=== PATIENT | female | born 1980 | race Caucasian/White ===

== ENCOUNTER → 2017-03-01 | Outpatient (CLI) | payer MEDICARE, OTHER ==
--- NOTE | 2017-03-01 10:08 | CT ---
EXAMINATION TYPE: CT brain wo con DATE OF EXAM: 03/01/2017 COMPARISON: 01/22/2014 INDICATION: Headache DLP: 1052 mGycm, Automated exposure control for dose reduction was used. CONTRAST: None CT of the brain is performed utilizing 3 mm thick sections through the posterior fossa and 3 mm thick sections through the remaining calvarium. Study is performed within 24 hours of arrival to the hosp [facility]. No abnormal hyperdensity is present to suggest an acute intracranial hemorrhage. No mass lesion is evident. No acute infarcts are evident. Ventricles and sulci are diminished for the patient age. Shunt catheter is present on the right with the tip in the region of the anterior right lateral ventricle. This is a change from 2013. Occipital craniotomy is been performed. 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 This is new from 01/22/2014. Paranasal sinuses and mastoid air cells within the [id number]-he-botc are clear. IMPRESSIONS: 1. 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 2. Shunt catheter is placed over the interval. No hydrocephalus is evident. Ventricles appear decompr essed.
== END | disposition home or self-care (01) ==
LOC: RADCTMAIN 08:56
PROVIDERS: ATTEND Neurological Surgery
DX: Q07.9 Congenital malformation of nervous system, unspecified (principal); R90.89 Other abnormal findings on diagnostic imaging of central nervous system; Z98.890 Other specified postprocedural states; Z98.2 Presence of cerebrospinal fluid drainage device
CPT/HCPCS: 70450

== ENCOUNTER → 2017-03-01 | Outpatient (CLI) | payer MEDICARE, OTHER ==
--- NOTE | 2017-03-01 10:52 | MR ---
EXAMINATION TYPE: MR knee RT wo con DATE OF EXAM: 03/01/2017 COMPARISON: NONE HISTORY: Medial right knee pain without known injury and pain over the patella. TECHNIQUE: Multiplanar, multisequence imaging of the right knee is performed without IV contrast. FINDINGS: MEDIAL MENISCUS: Anterior and posterior horns are intact without tear. LATERAL MENISCUS: Anterior and posterior horns are intact without tear. CRUCIATE LIGAMENTS: The anterior and posterior cruciate ligaments are intact and unremarkable. COLLATERAL LIGAMENTS: The medial collateral ligament and lateral collateral ligament complex are inta ct and unremarkable. A trace amount of fluid is seen deep to the posterior fibers of the medial colla teral ligament, relating to mild medial collateral ligament bursitis. EXTENSOR MECHANISM: Visualized quadriceps and patellar tendons are intact. EFFUSION: A small suprapatellar effusion is present with a small amount of synovial proliferation feliciano periorly relating to mild synovitis. TRICOMPARTMENT SPACES: Joint spaces are preserved. CARTILAGE: Slight signal heterogeneity of the patellar cartilage, medial greater than lateral is appr eciated. BONE MARROW SIGNAL: No focal abnormal marrow signal is appreciated. OTHER: Small cystic multiloculated lesion is seen posterior to the distal femoral diaphysis most com monly relating to a small ganglion cyst. Trace fluid between the medial head of the gastric anemias a nd semimembranosus relates to a minute Morales's cyst. Mild nonspecific prepatellar soft tissue swellin g predominantly overlies the patellar tendon. IMPRESSION: 1. No evidence of meniscal tear, muscular or ligamentous tear. 2. Small suprapatellar joint effusion with mild synovitis. 3. Mild nonspecific prepatellar soft tissue swelling with no focal bone marrow contusion or fracture. 4. Trace amount of fluid seen deep to the medial collateral ligament indicative of mild bursitis. 5. Mild patellar chondromalacia.
== END | disposition home or self-care (01) ==
LOC: RADMRIMAIN 07:51
PROVIDERS: ATTEND Orthopaedic Surgery
DX: M25.461 Effusion, right knee (principal); M94.261 Chondromalacia, right knee; M65.88 Other synovitis and tenosynovitis, other site

== ENCOUNTER → 2017-07-08 | Outpatient (CLI) | payer MEDICARE, OTHER ==
--- NOTE | 2017-07-08 14:46 | US ---
EXAMINATION TYPE: US kidneys/renal and bladder DATE OF EXAM: 07/08/2017 COMPARISON: CT abdomen February 15, 2015 CLINICAL HISTORY: Dysuria R30.0, Chronic cystitis N30.20. EXAM MEASUREMENTS: Right Kidney: 11.0 x 4.3 x 4.3 cm Left Kidney: 10.8 x 5.0 x 4.4 cm Right Kidney: No hydronephrosis or masses seen Left Kidney: No hydronephrosis or masses seen Bladder: wnl There is no evidence for hydronephrosis at this point in time. No nephrolithiasis is seen. No merle s are identified. The urinary bladder is anechoic. Bilateral ureteral jets are not seen. Post void scanning not performed. Evaluation for distal ureter jets not performed or not saved to PAC S. IMPRESSION: Suboptimal study, no hydronephrosis is noted bilaterally.
== END | disposition home or self-care (01) ==
LOC: RADUSWWP 14:10
PROVIDERS: ATTEND Urology
DX: R30.0 Dysuria (principal); N30.20 Other chronic cystitis without hematuria
CPT/HCPCS: 76770

== ENCOUNTER 2018-07-24 23:10 | Emergency (ER) | payer MEDICARE, OTHER ==
[2018-07-24] MEDS ORDERED: SODIUM CHLORIDE 0.9% 500 ML 500 ML IV STA (23:20)
[2018-07-24] MEDS ORDERED: SODIUM CHLORIDE 0.9% 1,000 ML IV STA (23:20)
[2018-07-24] MEDS ORDERED: HYDROmorphone 1 MG/ML 1 ML SYRINGE IVP STA (23:36)
[2018-07-24] MEDS ORDERED: ONDANSETRON 4 MG/2 ML VIAL IVP STA (23:36)
[2018-07-24 23:51] LABS: Basophils # (A) 0.1 k/uL (0-0.2); Basophils % (A) 1 %; Eosinophils # (A) 0.2 k/uL (0-0.7); Eosinophils % (A) 3 %; HCT 40.3 % (34.0-46.0); Lymphocytes # (A) 2.3 k/uL (1.0-4.8); Lymphocytes % (A) 40 %; MCH 29.3 pg (25.0-35.0); MCHC 34.7 g/dL (31.0-37.0); MCV 84.4 fL (80.0-100.0); Monocytes # (A) 0.4 k/uL (0-1.0); Monocytes % (A) 6 %; Neutrophils # (A) 2.7 k/uL (1.3-7.7); Neutrophils % (A) 47 %; Platelet Count 281 k/uL (150-450); RBC 4.77 m/uL (3.80-5.40); RDW 12.7 % (11.5-15.5); WBC 5.7 k/uL (3.8-10.6)
--- NOTE | 2018-07-24 23:53 | ED ---
General Adult HPI - General Source: patient, RN notes reviewed Mode of arrival: ambulatory Limitations: no limitations <Cristiano Kathleen - Last Filed: 07/25/18 01:11> <Kaylene Hopson - Last Filed: 07/25/18 03:04> - General Chief complaint: Back Pain/Injury Stated complaint: Kidney Infection Time Seen by Provider: 07/24/18 23:19 - History of Present Illness Initial comments: 38-year-old female presents emergency Department chief complaint of right flank pain. Patient states that she was diagnosed by PCP for of a kidney infection. Patient has had chronic history of urinary tract infections, interstitial cystitis does see urology. Patient does take chronic pain meds including Percocet and morphine. 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 Patient states that she's had no reported fever or chills though she takes Tylenol 5 times a day. Denies belly to diarrhea, constipation. She has noted dysuria and urinary frequency. Patient is unsure if urine culture was obtained (Cristiano Kathleen) - Related Data Home Medications Medication Instructions Recorded Confirmed ALPRAZolam [Xanax] 1 mg PO TID PRN 01/22/14 03/15/16 Dextroamphetamine/Amphetamine 30 mg PO BID 01/22/14 03/15/16 [Adderall] Albuterol Inhaler [Ventolin 2 puff INHALATION Q4-6H PRN 04/24/14 03/15/16 Inhaler] Fluticasone Propionate [Flonase 1 spray EA NOSTRIL DAILY 10/24/14 03/15/16 Allergy Relief] Hyoscyamine Sulfate [Levsin-Sl] 0.125 mg SL AC-TID 10/24/14 03/15/16 Cetirizine HCl [Zyrtec] 10 mg PO DAILY PRN 11/18/15 03/15/16 Diphenoxylate HCl/Atropine 1 tab PO QID PRN 11/18/15 03/15/16 [Lomotil] Morphine Sulfate Ir [MSIR] 30 mg PO TID 03/15/16 03/15/16 Morphine Sulfate [Morphine Sulfate 30 mg PO BID PRN 03/15/16 03/15/16 ER] Previous Rx's Medication Instructions Recorded Fluconazole [Diflucan] 150 mg PO ONCE #2 tab 03/15/16 Nitrofurantoin Monohyd/M-Cryst 100 mg PO Q12HR #14 cap 03/15/16 [Macrobid] Ciprofloxacin HCl [Cipro] 500 mg PO Q12HR #20 tablet 07/25/18 Allergies Allergy/AdvReac Type Severity Reaction Status Date / Time ibuprofen [From Motrin] Allergy Unknown Verified 07/24/18 23:17 metoclopramide HCl Allergy Rapid Verified 07/24/18 23:17 [From Reglan] Heart Rate Review of Systems ROS Other: All systems not noted in ROS Statement are negative. <Cristiano Kathleen - Last Filed: 07/25/18 01:11> ROS Other: All systems not noted in ROS Statement are negative. <Kaylene Hopson - Last Filed: 07/25/18 03:04> ROS Statement: Those systems with pertinent positive or pertinent negative responses have been documented in the HPI. Past Medical History Past Medical History: Asthma Additional Past Medical History / Comment(s): chiari malformation, migraines, uti, History of Any Multi-Drug Resistant Organisms: None Reported Past Surgical History: Tonsillectomy, Tubal Ligation Additional Past Surgical History / Comment(s): chiari decompression, shunt to brain Past Psychological History: ADD/ADHD Smoking Status: Never smoker Past Alcohol Use History: None Reported Past Drug Use History: None Reported <Cristiano Kathleen - Last Filed: 07/25/18 01:11> General Exam Limitations: no limitations General appearance: alert, in no apparent distress Head exam: Present: atraumatic, normocephalic, normal inspection Respiratory exam: Present: normal lung sounds bilaterally. Absent: respiratory distress, wheezes, rales, rhonchi, stridor Cardiovascular Exam: Present: regular rate, normal rhythm, normal heart sounds. Absent: systolic murmur, diastolic murmur, rubs, gallop, clicks GI/Abdominal exam: Present: soft, tenderness (Mild suprapubic), normal bowel sounds. Absent: distended, guarding, rebound, rigid Back exam: Present: CVA tenderness (R). Absent: CVA tenderness (L) Skin exam: Present: warm, dry, intact, normal color. Absent: rash <Cristiano Kathleen - Last Filed: 07/25/18 01:11> Vital Signs 07/24/18 07/25/18 23:14 02:04 Temperature 97.7 F 98.1 F Pulse Rate 98 68 Respiratory 18 16 Rate Blood Pressure 103/76 95/68 O2 Sat by Pulse 99 97 Oximetry Medical Decision Making - Lab Data Result diagrams: 07/24/18 23:33 07/24/18 23:33 <Cristiano Kathleen - Last Filed: 07/25/18 01:11> - Lab Data Result diagrams: 07/24/18 23:33 07/24/18 23:33 <Kaylene Hopson - Last Filed: 07/25/18 03:04> - Medical Decision Making 38-year-old female presented from for right flank pain. Patient does have evidence of urinary tract infection no fever or leukocytosis. Patient most likely has early pyelonephritis was given 2 g Rocephin emergency department we discharged on ciprofloxacin, urine culture obtained patient agrees to plan. ( Cristiano Kathleen) I was available for consultation in the emergency department. The history and physical exam were done by the midlevel provider. I was consulted for this patient's care. I reviewed the case with the midlevel provider and based on their presentation of the patient, I agree with the assessment, medical decision making and plan of care as documented. (Kaylene Hopson) - Lab Data Lab Results 07/24/18 07/24/18 07/24/18 Range/Units 23:33 23:33 23:33 WBC 5.7 (3.8-10.6) k/uL RBC 4.77 (3.80-5.40) m/uL Hgb 14.0 (11.4-16.0) gm/dL Hct 40.3 (34.0-46.0) % MCV 84.4 (80.0-100.0) fL MCH 29.3 (25.0-35.0) pg MCHC 34.7 (31.0-37.0) g/dL RDW 12.7 (11.5-15.5) % Plt Count 281 (150-450) k/uL Neutrophils % 47 % Lymphocytes % 40 % Monocytes % 6 % Eosinophils % 3 % Basophils % 1 % Neutrophils # 2.7 (1.3-7.7) k/uL Lymphocytes # 2.3 (1.0-4.8) k/uL Monocytes # 0.4 (0-1.0) k/uL Eosinophils # 0.2 (0-0.7) k/uL Basophils # 0.1 (0-0.2) k/uL Sodium 137 (137-145) mmol/L Potassium 4.5 (3.5-5.1) mmol/L Chloride 103 (98-107) mmol/L Carbon Dioxide 25 (22-30) mmol/L Anion Gap 9 mmol/L BUN 20 H (7-17) mg/dL Creatinine 1.20 H (0.52-1.04) mg/dL Est GFR (CKD-EPI)AfAm 67 (>60 ml/min/1.73 sqM) Est GFR (CKD-EPI)NonAf 58 (>60 ml/min/1.73 sqM) Glucose 102 H (74-99) mg/dL Plasma Lactic Acid Paulino 1.3 (0.7-2.0) mmol/L Calcium 9.6 (8.4-10.2) mg/dL Total Bilirubin 0.8 (0.2-1.3) mg/dL AST 35 (14-36) U/L ALT 31 (9-52) U/L Alkaline Phosphatase 73 (38-126) U/L Total Protein 7.0 (6.3-8.2) g/dL Albumin 4.3 (3.5-5.0) g/dL Lipase 97 (23-300) U/L Urine Color Urine Appearance (Clear) Urine RBC (0-5) /hpf Urine WBC (0-5) /hpf Urine WBC Clumps (None) /hpf Ur Squamous Epith Cells (0-4) /hpf Urine Bacteria (None) /hpf Urine Mucus (None) /hpf 07/24/18 Range/Units 23:46 WBC (3.8-10.6) k/uL RBC (3.80-5.40) m/uL Hgb (11.4-16.0) gm/dL Hct (34.0-46.0) % MCV (80.0-100.0) fL MCH (25.0-35.0) pg MCHC (31.0-37.0) g/dL RDW (11.5-15.5) % Plt Count (150-450) k/uL Neutrophils % % Lymphocytes % % Monocytes % % Eosinophils % % Basophils % % Neutrophils # (1.3-7.7) k/uL Lymphocytes # (1.0-4.8) k/uL Monocytes # (0-1.0) k/uL Eosinophils # (0-0.7) k/uL Basophils # (0-0.2) k/uL Sodium (137-145) mmol/L Potassium (3.5-5.1) mmol/L Chloride (98-107) mmol/L Carbon Dioxide (22-30) mmol/L Anion Gap mmol/L BUN (7-17) mg/dL Creatinine (0.52-1.04) mg/dL Est GFR (CKD-EPI)AfAm (>60 ml/min/1.73 sqM) Est GFR (CKD-EPI)NonAf (>60 ml/min/1.73 sqM) Glucose (74-99) mg/dL Plasma Lactic Acid Paulino (0.7-2.0) mmol/L Calcium (8.4-10.2) mg/dL Total Bilirubin (0.2-1.3) mg/dL AST (14-36) U/L ALT (9-52) U/L Alkaline Phosphatase (38-126) U/L Total Protein (6.3-8.2) g/dL Albumin (3.5-5.0) g/dL Lipase (23-300) U/L Urine Color Dark [place] Urine Appearance Clear (Clear) Urine RBC 7 H (0-5) /hpf Urine WBC >182 H (0-5) /hpf Urine WBC Clumps Occasional H (None) /hpf Ur Squamous Epith Cells 42 H (0-4) /hpf Urine Bacteria Occasional H (None) /hpf Urine Mucus Many H (None) /hpf Disposition Is patient prescribed a controlled substance at d/c from ED?: No Time of Disposition: 01:13 <Cristiano Kathleen - Last Filed: 07/25/18 01:11> <Kaylene Hopson - Last Filed: 07/25/18 03:04> Clinical Impression: Pyelonephritis Disposition: HOME SELF-CARE Condition: Stable Instructions: Kidney Infection (ED) Additional Instructions: Please return to the Emergency Department if symptoms worsen or any other concerns. Prescriptions: Ciprofloxacin HCl [Cipro] 500 mg PO Q12HR #20 tablet Referrals: Santosh Mccord DO [Primary Care Provider] - 1-2 days
[2018-07-25 00:04] LABS: Albumin 4.3 g/dL (3.5-5.0); Calcium 9.6 mg/dL (8.4-10.2); Potassium 4.5 mmol/L (3.5-5.1); Total Bilirubin 0.8 mg/dL (0.2-1.3)
[2018-07-25 00:22] LABS: Bacteria,Urine Occasional /hpf; Mucus,Urine Many /hpf; RBC,Urine 7 /hpf (0-5); Squamous Epithelial Cell,Urine 42 /hpf (0-4); WBC,Urine >182 /hpf (0-5)
[2018-07-25] MEDS ORDERED: cefTRIAXone 2,000 MG in SODIUM CHLORIDE 0.9% 100 ML IVPB STA (00:29)
[2018-07-25 00:38] LABS: Appearance,Urine Clear (Clear); Color,Urine Dark Orange
[2018-07-25] MEDS ORDERED: HYDROmorphone 0.5 MG/0.5 ML SYRINGE IVP STA (01:12)
[2018-07-25 02:05] VITALS: BP 95/68; PULSE 68; RESP 16; TEMP 98.1
== END 2018-07-25 02:06 | disposition home or self-care (01) ==
LOC: EC 23:10
DX: N12 Tubulo-interstitial nephritis, not specified as acute or chronic (principal); F90.9 Attention-deficit hyperactivity disorder, unspecified type; J45.909 Unspecified asthma, uncomplicated; Z79.891 Long term (current) use of opiate analgesic; Z79.899 Other long term (current) drug therapy; Z88.6 Allergy status to analgesic agent; Z88.8 Allergy status to other drugs, medicaments and biological substances; Z86.69 Personal history of other diseases of the nervous system and sense organs; Z98.890 Other specified postprocedural states; Z98.51 Tubal ligation status
CPT/HCPCS: 36415; 80053; 83605; 83690; 85025; 81001; 87040; 87086; 99283; 96365; 96375 ×2; 96376; 96361; J2405; J0696; J1170 ×2

== ENCOUNTER 2018-08-13 18:48 | Emergency (ER) | payer MEDICARE, OTHER ==
[2018-08-13 18:53] VITALS: RESP 18; TEMP 97.7
[2018-08-13] MEDS ORDERED: DIPH,PERTUS(ACELL)TETVAC-LF 0.5 ML VIAL IM ONE (19:29)
[2018-08-13] MEDS ORDERED: MORPHINE SULFATE 4 MG/ML SYRINGE IM STA (19:29)
[2018-08-13] MEDS ORDERED: MORPHINE SULFATE 4 MG/ML SYRINGE IVP STA (19:29)
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
[2018-08-13 20:49] VITALS: BP 126/93; PULSE 94
== END 2018-08-13 20:45 | disposition home or self-care (01) ==
LOC: EC 18:48
DX: T21.01XA Burn of unspecified degree of chest wall, initial encounter (principal); T21.02XA Burn of unspecified degree of abdominal wall, initial encounter; T31.0 Burns involving less than 10% of body surface; Z23 Encounter for immunization; J45.909 Unspecified asthma, uncomplicated; F90.9 Attention-deficit hyperactivity disorder, unspecified type; Z79.899 Other long term (current) drug therapy; Z79.51 Long term (current) use of inhaled steroids; Z88.6 Allergy status to analgesic agent; Z88.8 Allergy status to other drugs, medicaments and biological substances; X12.XXXA Contact with other hot fluids, initial encounter; Y93.G3 Activity, cooking and baking
CPT/HCPCS: 90715; 99283; 16020; 90471; 96372; J2270

== ENCOUNTER → 2018-12-19 | Outpatient (CLI) | payer MEDICARE, OTHER ==
--- NOTE | 2018-12-19 15:30 | XR ---
2 view abdomen HISTORY: Abdominal pain and distention 2 views of the abdomen on 3 images correlated prior exam 03/15/2016 Retained fecal debris is present throughout the distribution of the colon. There is a catheter coiled within the pelvis. No evident pneumoperitoneum or bowel obstruction. Proximal catheter tip not inclu ded on the exam. Lung bases are clear. Bone mineralization is normal. IMPRESSION: Correlate for fecal stasis. Interval ventriculoperitoneal shunt tubing placement.
== END | disposition home or self-care (01) ==
LOC: RADXRMAIN 15:03
PROVIDERS: ATTEND Family Medicine
DX: R14.0 Abdominal distension (gaseous) (principal)
CPT/HCPCS: 74019

== ENCOUNTER 2018-12-20 19:39 | Emergency (ER) | payer MEDICARE, OTHER ==
[2018-12-20] MEDS ORDERED: PANTOPRAZOLE 40 MG/10 ML VIAL IVP STA (20:17)
[2018-12-20] MEDS ORDERED: SODIUM CHLORIDE 0.9% 1,000 ML IV STA (20:17)
[2018-12-20] MEDS ORDERED: MORPHINE SULFATE 4 MG/ML SYRINGE IV STA (20:17)
[2018-12-20] MEDS ORDERED: ONDANSETRON 4 MG/2 ML VIAL IVP STA (20:17)
[2018-12-20 20:18] VITALS: RESP 18
[2018-12-20 20:44] LABS: Basophils % (A) 0 %; Eosinophils # (A) 0.2 k/uL (0-0.7); Eosinophils % (A) 2 %; HGB 13.7 gm/dL (11.4-16.0); Lymphocytes % (A) 28 %; MCH 29.6 pg (25.0-35.0); MCHC 34.2 g/dL (31.0-37.0); MCV 86.6 fL (80.0-100.0); Mean Platelet Volume 6.9; Monocytes # (A) 0.5 k/uL (0-1.0); Monocytes % (A) 5 %; Neutrophils # (A) 6.5 k/uL (1.3-7.7); Neutrophils % (A) 63 %; Platelet Count 315 k/uL (150-450); RBC 4.61 m/uL (3.80-5.40); RDW 12.6 % (11.5-15.5); WBC 10.4 k/uL (3.8-10.6)
[2018-12-20 20:51] LABS: ALT 46 U/L (9-52); AST 39 U/L (14-36); African American GFR (CKD) >90 (>60 ml/min/1.73 sqM); Albumin 4.2 g/dL (3.5-5.0); Alkaline Phosphatase 77 U/L (38-126); Amylase 77 U/L (30-110); Anion Gap 7 mmol/L; Blood Urea Nitrogen 20 mg/dL (7-17); Calcium 9.4 mg/dL (8.4-10.2); Carbon Dioxide 26 mmol/L (22-30); Chloride 103 mmol/L (98-107); Glucose 97 mg/dL (74-99); Lipase 154 U/L (23-300); Potassium 4.3 mmol/L (3.5-5.1); Sodium 136 mmol/L (137-145); Total Bilirubin 0.9 mg/dL (0.2-1.3); Total Protein 6.8 g/dL (6.3-8.2)
[2018-12-20 20:52] LABS: Appearance,Urine Cloudy (Clear); Bilirubin,Urine Negative (Negative); Blood,Urine Negative (Negative); Color,Urine Yellow; Glucose,Urine (UA) Negative (Negative); Hyaline Casts,Urine 1 /lpf (0-2); Ketones,Urine Negative (Negative); Leukocyte Esterase,Urine Small (Negative); Mucus,Urine Occasional /hpf; Nitrite,Urine Negative (Negative); PH, Urine 6.5 (5.0-8.0); Protein,Urine Negative (Negative); RBC,Urine 1 /hpf (0-5); Specific Gravity,Urine 1.019 (1.001-1.035); Squamous Epithelial Cell,Urine 11 /hpf (0-4); Urobilinogen,Urine <2.0 mg/dL (<2.0); WBC,Urine 17 /hpf (0-5)
--- NOTE | 2018-12-20 22:00 | ED ---
Abdominal Pain HPI - General Chief Complaint: Abdominal Pain Stated Complaint: Abd Pain Time Seen by Provider: 12/20/18 19:58 Source: patient, RN notes reviewed, old records reviewed Mode of arrival: ambulatory Limitations: no limitations - History of Present Illness Initial Comments: This is a 38-year-old female the ER for evaluation. Patient resents today for evaluation of abdominal pain history of Gastritis. History of inflammatory bowel disease. Nausea no vomiting. No fevers. No sick contacts no travel history. Patient states she's had pain is been getting worse bloating this morning getting worse for about 2 days. States that she feels like a buzzing heart, admits to bowel movements pain normal she is nauseous no vomiting MD Complaint: abdominal pain -: days(s) (3) Location: diffuse, periumbilical, epigastric, suprapubic Radiation: epigastric, suprapubic Migration to: epigastric, suprapubic Severity: moderate Severity scale (1-10): 6 Quality: aching, fullness, dull Improves With: nothing Worsens With: nothing Context: possible food poisoning Associated Symptoms: nausea - Related Data Home Medications Medication Instructions Recorded Confirmed Albuterol Inhaler [Ventolin 2 puff INHALATION Q4-6H PRN 04/24/14 12/20/18 Inhaler] Hyoscyamine Sulfate [Levsin-Sl] 0.125 mg SL AC-TID 10/24/14 12/20/18 Cetirizine HCl [Zyrtec] 10 mg PO DAILY 11/18/15 12/20/18 Diphenoxylate HCl/Atropine 1 tab PO QID PRN 11/18/15 12/20/18 [Lomotil] Montelukast Sodium [Singulair] 10 mg PO HS 08/13/18 12/20/18 Morphine Sulfate ER [Ms Contin] 15 mg PO HS 08/13/18 12/20/18 Ondansetron Odt [Zofran Odt] 8 mg PO Q12HR PRN 08/13/18 12/20/18 Oxybutynin Chloride [Oxybutynin 15 mg PO DAILY 08/13/18 12/20/18 Chloride ER] Pentosan Polysulfate Sodium 100 mg PO TID 08/13/18 12/20/18 [Elmiron] oxyCODONE-APAP 10-325MG [Percocet 1 tab PO 5XD PRN 08/13/18 12/20/18 10-325 mg] Dexamethasone 0.5 mg PO BID 12/20/18 12/20/18 LORazepam [Ativan] 0.5 - 1 mg PO HS 12/20/18 12/20/18 Allergies Allergy/AdvReac Type Severity Reaction Status Date / Time ibuprofen [From Motrin] Allergy Unknown Verified 12/20/18 20:29 metoclopramide HCl Allergy Rapid Verified 12/20/18 20:29 [From Reglan] Heart Rate Review of Systems ROS Statement: Those systems with pertinent positive or pertinent negative responses have been documented in the HPI. ROS Other: All systems not noted in ROS Statement are negative. Past Medical History Past Medical History: Asthma Additional Past Medical History / Comment(s): chiari malformation, migraines, uti, uterine mass, infected wisdom tooth. 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 bladder suspenion feb 1 Past Psychological History: ADD/ADHD Smoking Status: Never smoker Past Alcohol Use History: None Reported Past Drug Use History: None Reported General Exam Limitations: no limitations General appearance: alert, in no apparent distress Head exam: Present: atraumatic, normocephalic, normal inspection Eye exam: Present: normal appearance, PERRL, EOMI. Absent: scleral icterus, conjunctival injection, periorbital swelling ENT exam: Present: normal exam, mucous membranes moist Neck exam: Present: normal inspection. Absent: tenderness, meningismus, lymphadenopathy Respiratory exam: Present: normal lung sounds bilaterally. Absent: respiratory distress, wheezes, rales, rhonchi, stridor Cardiovascular Exam: Present: regular rate, normal rhythm, normal heart sounds. Absent: systolic murmur, diastolic murmur, rubs, gallop, clicks GI/Abdominal exam: Present: soft, distended, tenderness, normal bowel sounds. Absent: guarding, rebound, rigid Extremities exam: Present: normal inspection, full ROM, normal capillary refill. Absent: tenderness, pedal edema, joint swelling, calf tenderness Back exam: Present: normal inspection Neurological exam: Present: alert, oriented X3, CN II-XII intact Psychiatric exam: Present: normal affect, normal mood Skin exam: Present: warm, dry, intact, normal color. Absent: rash Course Vital Signs 12/20/18 20:02 Temperature 99 F Pulse Rate 84 Respiratory 18 Rate Blood Pressure 127/93 O2 Sat by Pulse 94 L Oximetry - Reevaluation(s) Reevaluation #1: 12/20/18 21:59 Medical records reviewed Reevaluation #2: 12/20/18 22:00 Pain is well-controlled Medical Decision Making - Medical Decision Making 38 female the ER for evaluation of bowel pain nonspecific patient has labwork CT scans and ultrasound are all negative. Patient can be discharged home - Lab Data Result diagrams: 12/20/18 20:31 12/20/18 20:31 Lab Results 12/20/18 12/20/18 12/20/18 Range/Units 20:31 20:31 20:31 WBC 10.4 (3.8-10.6) k/uL RBC 4.61 (3.80-5.40) m/uL Hgb 13.7 (11.4-16.0) gm/dL Hct 40.0 (34.0-46.0) % MCV 86.6 (80.0-100.0) fL MCH 29.6 (25.0-35.0) pg MCHC 34.2 (31.0-37.0) g/dL RDW 12.6 (11.5-15.5) % Plt Count 315 (150-450) k/uL Neutrophils % 63 % Lymphocytes % 28 % Monocytes % 5 % Eosinophils % 2 % Basophils % 0 % Neutrophils # 6.5 (1.3-7.7) k/uL Lymphocytes # 3.0 (1.0-4.8) k/uL Monocytes # 0.5 (0-1.0) k/uL Eosinophils # 0.2 (0-0.7) k/uL Basophils # 0.0 (0-0.2) k/uL Sodium 136 L (137-145) mmol/L Potassium 4.3 (3.5-5.1) mmol/L Chloride 103 (98-107) mmol/L Carbon Dioxide 26 (22-30) mmol/L Anion Gap 7 mmol/L BUN 20 H (7-17) mg/dL Creatinine 0.69 (0.52-1.04) mg/dL Est GFR (CKD-EPI)AfAm >90 (>60 ml/min/1.73 sqM) Est GFR (CKD-EPI)NonAf >90 (>60 ml/min/1.73 sqM) Glucose 97 (74-99) mg/dL Plasma Lactic Acid Paulino 1.0 (0.7-2.0) mmol/L Calcium 9.4 (8.4-10.2) mg/dL Total Bilirubin 0.9 (0.2-1.3) mg/dL AST 39 H (14-36) U/L ALT 46 (9-52) U/L Alkaline Phosphatase 77 (38-126) U/L Total Protein 6.8 (6.3-8.2) g/dL Albumin 4.2 (3.5-5.0) g/dL Amylase 77 (30-110) U/L Lipase 154 (23-300) U/L Urine Color Urine Appearance (Clear) Urine pH (5.0-8.0) Ur Specific [place] (1.001-1.035) Urine Protein (Negative) Urine Glucose (UA) (Negative) Urine Ketones (Negative) Urine Blood (Negative) Urine Nitrite (Negative) Urine Bilirubin (Negative) Urine Urobilinogen (<2.0) mg/dL Ur Leukocyte Esterase (Negative) Urine RBC (0-5) /hpf Urine WBC (0-5) /hpf Ur Squamous Epith Cells (0-4) /hpf Hyaline Casts (0-2) /lpf Urine Mucus (None) /hpf 12/20/18 Range/Units Unknown WBC (3.8-10.6) k/uL RBC (3.80-5.40) m/uL Hgb (11.4-16.0) gm/dL Hct (34.0-46.0) % MCV (80.0-100.0) fL MCH (25.0-35.0) pg MCHC (31.0-37.0) g/dL RDW (11.5-15.5) % Plt Count (150-450) k/uL Neutrophils % % Lymphocytes % % Monocytes % % Eosinophils % % Basophils % % Neutrophils # (1.3-7.7) k/uL Lymphocytes # (1.0-4.8) k/uL Monocytes # (0-1.0) k/uL Eosinophils # (0-0.7) k/uL Basophils # (0-0.2) k/uL Sodium (137-145) mmol/L Potassium (3.5-5.1) mmol/L Chloride (98-107) mmol/L Carbon Dioxide (22-30) mmol/L Anion Gap mmol/L BUN (7-17) mg/dL Creatinine (0.52-1.04) mg/dL Est GFR (CKD-EPI)AfAm (>60 ml/min/1.73 sqM) Est GFR (CKD-EPI)NonAf (>60 ml/min/1.73 sqM) Glucose (74-99) mg/dL Plasma Lactic Acid Paulino (0.7-2.0) mmol/L Calcium (8.4-10.2) mg/dL Total Bilirubin (0.2-1.3) mg/dL AST (14-36) U/L ALT (9-52) U/L Alkaline Phosphatase (38-126) U/L Total Protein (6.3-8.2) g/dL Albumin (3.5-5.0) g/dL Amylase (30-110) U/L Lipase (23-300) U/L Urine Color Yellow Urine Appearance Cloudy H (Clear) Urine pH 6.5 (5.0-8.0) Ur Specific [place] 1.019 (1.001-1.035) Urine Protein Negative (Negative) Urine Glucose (UA) Negative (Negative) Urine Ketones Negative (Negative) Urine Blood Negative (Negative) Urine Nitrite Negative (Negative) Urine Bilirubin Negative (Negative) Urine Urobilinogen <2.0 (<2.0) mg/dL Ur Leukocyte Esterase Small H (Negative) Urine RBC 1 (0-5) /hpf Urine WBC 17 H (0-5) /hpf Ur Squamous Epith Cells 11 H (0-4) /hpf Hyaline Casts 1 (0-2) /lpf Urine Mucus Occasional H (None) /hpf - Radiology Data Radiology results: report reviewed (CT of pelvis negative for acute disease ultrasound is negative), image reviewed Disposition Clinical Impression: Abdominal pain Disposition: HOME SELF-CARE Condition: Good Instructions (If sedation given, give patient instructions): Abdominal Pain (ED) Is patient prescribed a controlled substance at d/c from ED?: No Referrals: Flex,Santosh, DO [Primary Care Provider] - 1-2 days
--- NOTE | 2018-12-20 22:30 | CT ---
EXAMINATION TYPE: CT abdomen pelvis w con DATE OF EXAM: 12/20/2018 COMPARISON: 02/15/2015 HISTORY: Abdominal distention and pain x5 days. CT DLP: 1029.1 mGycm Automated exposure control for dose reduction was used. TECHNIQUE: Helical acquisition of images was performed from the lung bases through the pelvis. CONTRAST: Performed without Oral Contrast and with IV Contrast, patient injected with 100ml mL of Iso quoc 300. FINDINGS: LUNG BASES: No significant abnormality is appreciated. LIVER/GB: No significant abnormality is appreciated. PANCREAS: No significant abnormality is seen. SPLEEN: No significant abnormality is seen. ADRENALS: No significant abnormality is seen. KIDNEYS: No significant abnormality is seen. FREE AIR: No free air is visualized. RETROPERITONEAL ADENOPATHY: None visualized REPRODUCTIVE ORGANS: No significant abnormality is seen URINARY BLADDER: No significant abnormality is seen. PELVIC ADENOPATHY: None visualized. OSSEOUS STRUCTURES: No significant abnormality is seen. BOWEL: No significant abnormality is seen. OTHER: No vascular findings. IMPRESSION: NO ACUTE PROCESS.
--- NOTE | 2018-12-21 00:21 | US ---
EXAM: US Abdomen Limited, Right Upper Quadrant CLINICAL HISTORY: Pain TECHNIQUE: Real-time ultrasound of the right upper quadrant with image documentation. COMPARISON: CT 12/20/2018, US 07/08/2017 FINDINGS: Limitations: Bowel gas. Liver: Liver is normal in size and smooth in contour. Diffusely increased hepatic echogenicity is suggestive of steatosis. No focal hepatic lesions. Gallbladder: Possible minimal gallbladder sludge versus artifact. No definite gallstones. No gallbladder wall thickening or pericholecystic fluid. Common bile duct: Unremarkable as visualized. No stones. No dilation. Pancreas: Pancreas is not well-seen due to bowel gas. Right kidney: Unremarkable. No stones. No solid mass. No hydronephrosis. IMPRESSION: Possible minimal gallbladder sludge versus artifact. No sonographic findings to suggest acute cholecystitis.
[2018-12-21 01:05] VITALS: BP 121/86; PULSE 86; TEMP 98.2
== END 2018-12-21 01:07 | disposition home or self-care (01) ==
LOC: EC 19:39
DX: R10.33 Periumbilical pain (principal); R10.13 Epigastric pain; R14.0 Abdominal distension (gaseous); R11.0 Nausea; J45.909 Unspecified asthma, uncomplicated; Z88.6 Allergy status to analgesic agent; Z88.8 Allergy status to other drugs, medicaments and biological substances; Z79.52 Long term (current) use of systemic steroids; Z79.891 Long term (current) use of opiate analgesic; Z79.899 Other long term (current) drug therapy; Z87.728 Personal history of other specified (corrected) congenital malformations of nervous system and sense organs; Z87.19 Personal history of other diseases of the digestive system
CPT/HCPCS: 36415; 80053; 82150; 83605; 83690; 85025; 81001; 87086; 76705; 74177; 99284; 96374; 96375 ×2; 96361 ×2; J2270; J2405; C9113; Q9967

== ENCOUNTER → 2018-12-25 | Outpatient (CLI) | payer MEDICARE, OTHER ==
[2018-12-25 18:47] LABS: African American GFR (CKD) 83.3 (60.0-200.0); Albumin 4.3 g/dL (3.80-4.90); Albumin/Globulin Ratio 2.26 (1.60-3.17); Anion Gap 7.1 mmol/L (4.00-12.00); Calcium 9.4 mg/dL (8.7-10.3); Carbon Dioxide 28.9 mmol/L (21.6-31.8); Globulin 1.9 g/dL (1.6-3.3); Potassium 4.6 mmol/L (3.5-5.5); Total Protein 6.2 g/dL (6.2-8.2)
== END | disposition home or self-care (01) ==
LOC: LABWHC1 13:19
PROVIDERS: ATTEND Psychiatry & Neurology Neurology
DX: N28.9 Disorder of kidney and ureter, unspecified (principal)
CPT/HCPCS: 36415; 80053

== ENCOUNTER 2019-08-10 12:27 | Emergency (ER) | payer MEDICARE, OTHER ==
[2019-08-10 12:45] VITALS: TEMP 98
[2019-08-10] MEDS ORDERED: SODIUM CHLORIDE 0.9% 1,000 ML IV STA (13:35)
--- NOTE | 2019-08-10 13:38 | ED ---
Abdominal Pain HPI - General Chief Complaint: Abdominal Pain Stated Complaint: Kidney pain Time Seen by Provider: 08/10/19 13:29 Source: patient Mode of arrival: ambulatory Limitations: no limitations - History of Present Illness Initial Comments: Patient is a 31-year-old female with history of interstitial cystitis, recurrent pyelonephritis presenting to emergency Department with a chief complaint of possible kidney infection. Patient states her symptoms began several days ago and she wanted to go to her primary care but could not go due to insurance purposes. Patient reports generalized upper pubic pressure. Does report increased urgency frequency but no dysuria. Patient does report foul smell from the urine as well as dark color. She does report right-sided flank pain. She does report nausea but no vomiting. Patient is on multiple pain medications along with Percocet of morphine due to multiple brain surgeries. She keeps getting hot and cold sweats. Denies hematuria, hematochezia or melena. - Related Data Home Medications Medication Instructions Recorded Confirmed Albuterol Inhaler [Ventolin 2 puff INHALATION Q4-6H PRN 04/24/14 12/20/18 Inhaler] Hyoscyamine Sulfate [Levsin-Sl] 0.125 mg SL AC-TID 10/24/14 12/20/18 Cetirizine HCl [Zyrtec] 10 mg PO DAILY 11/18/15 12/20/18 Diphenoxylate HCl/Atropine 1 tab PO QID PRN 11/18/15 12/20/18 [Lomotil] Montelukast Sodium [Singulair] 10 mg PO HS 08/13/18 12/20/18 Morphine Sulfate ER [Ms Contin] 15 mg PO HS 08/13/18 12/20/18 Ondansetron Odt [Zofran Odt] 8 mg PO Q12HR PRN 08/13/18 12/20/18 Oxybutynin Chloride [Oxybutynin 15 mg PO DAILY 08/13/18 12/20/18 Chloride ER] Pentosan Polysulfate Sodium 100 mg PO TID 08/13/18 12/20/18 [Elmiron] oxyCODONE-APAP 10-325MG [Percocet 1 tab PO 5XD PRN 08/13/18 12/20/18 10-325 mg] Dexamethasone 0.5 mg PO BID 12/20/18 12/20/18 LORazepam [Ativan] 0.5 - 1 mg PO HS 12/20/18 12/20/18 Previous Rx's Medication Instructions Recorded Sulfamethox-Tmp 800-160Mg [Bactrim 1 each PO Q12HR #20 tab 08/10/19 Ds] Allergies Allergy/AdvReac Type Severity Reaction Status Date / Time ibuprofen [From Motrin] Allergy Unknown Verified 12/20/18 20:29 metoclopramide HCl Allergy Rapid Verified 12/20/18 20:29 [From Reglan] Heart Rate prochlorperazine Allergy Hallucinati Verified 08/10/19 12:45 [From Compazine] ons Review of Systems ROS Statement: Those systems with pertinent positive or pertinent negative responses have been documented in the HPI. ROS Other: All systems not noted in ROS Statement are negative. Past Medical History Past Medical History: Asthma Additional Past Medical History / Comment(s): chiari malformation, migraines, uti, uterine mass, infected wisdom tooth. IBS, lupus History of Any Multi-Drug Resistant Organisms: None Reported Past Surgical History: Tonsillectomy, Tubal Ligation Additional Past Surgical History / Comment(s): chiari decompression, shunt to brain brain surgery x5. bladder suspenion fe Past Psychological History: ADD/ADHD Smoking Status: Never smoker Past Alcohol Use History: None Reported Past Drug Use History: None Reported General Exam Limitations: no limitations General appearance: alert, in no apparent distress, obese Head exam: Present: atraumatic, normocephalic, normal inspection Eye exam: Present: normal appearance, EOMI Pupils: Present: normal accommodation ENT exam: Present: normal exam, normal oropharynx, mucous membranes moist, TM's normal bilaterally, normal external ear exam Neck exam: Present: normal inspection, full ROM Respiratory exam: Present: normal lung sounds bilaterally Cardiovascular Exam: Present: regular rate, normal rhythm, normal heart sounds GI/Abdominal exam: Present: soft, tenderness (Generalized suprapubic tenderness.). Absent: distended, guarding, rebound Extremities exam: Present: normal inspection, full ROM Back exam: Present: normal inspection, full ROM, tenderness, CVA tenderness (R) Neurological exam: Present: alert, oriented X3 Psychiatric exam: Present: normal affect, normal mood Skin exam: Present: warm, dry, intact, normal color Course Vital Signs 08/10/19 12:43 Temperature 98.0 F Pulse Rate 101 H Respiratory 20 Rate Blood Pressure 129/96 O2 Sat by Pulse 99 Oximetry Medical Decision Making - Medical Decision Making Patient is a 38-year-old female history of polynephritis presenting to emergency Department with a chief complaint of possible kidney infection. On exam patient does have right CVA tenderness. She does have increased urgency frequency dysuria. Does have some nausea but didn't take a milligrams of Zofran at home. Patient was given fluids in the ED. CBC and CMP are unremarkable. UA shows elevated white blood cells, leukocyte esterase and positive nitrates. Patient reports recurrent right kidney infections but never on the left. Vitals are stable. On reevaluation patient reports improvement of symptoms after she was given fluids. Patient was given 1 mg of Rocephin and will be discharged with a 10 day course of Bactrim. Strict return parameters were thoroughly discussed with patient was understanding and agreeable. Case discussed with physician. Patient advised to follow primary care. Case discussed with physician. - Lab Data Result diagrams: 08/10/19 13:32 08/10/19 13:32 Lab Results 08/10/19 08/10/19 08/10/19 Range/Units 13:32 13:32 13:32 WBC 5.5 (3.8-10.6) k/uL RBC 4.80 (3.80-5.40) m/uL Hgb 13.7 (11.4-16.0) gm/dL Hct 40.4 (34.0-46.0) % MCV 84.1 (80.0-100.0) fL MCH 28.5 (25.0-35.0) pg MCHC 33.9 (31.0-37.0) g/dL RDW 12.4 (11.5-15.5) % Plt Count 213 (150-450) k/uL Neutrophils % 57 % Lymphocytes % 31 % Monocytes % 6 % Eosinophils % 3 % Basophils % 1 % Neutrophils # 3.1 (1.3-7.7) k/uL Lymphocytes # 1.7 (1.0-4.8) k/uL Monocytes # 0.3 (0-1.0) k/uL Eosinophils # 0.2 (0-0.7) k/uL Basophils # 0.0 (0-0.2) k/uL Sodium 137 (137-145) mmol/L Potassium 4.2 (3.5-5.1) mmol/L Chloride 102 (98-107) mmol/L Carbon Dioxide 26 (22-30) mmol/L Anion Gap 9 mmol/L BUN 14 (7-17) mg/dL Creatinine 0.80 (0.52-1.04) mg/dL Est GFR (CKD-EPI)AfAm >90 (>60 ml/min/1.73 sqM) Est GFR (CKD-EPI)NonAf >90 (>60 ml/min/1.73 sqM) Glucose 94 (74-99) mg/dL Calcium 9.2 (8.4-10.2) mg/dL Total Bilirubin 0.7 (0.2-1.3) mg/dL AST 28 (14-36) U/L ALT 27 (4-34) U/L Alkaline Phosphatase 87 (38-126) U/L Total Protein 6.9 (6.3-8.2) g/dL Albumin 4.1 (3.5-5.0) g/dL Amylase 53 (30-110) U/L Lipase 102 (23-300) U/L Urine Color Yellow Urine Appearance Cloudy H (Clear) Urine pH 6.0 (5.0-8.0) Ur Specific [place] 1.021 (1.001-1.035) Urine Protein Negative (Negative) Urine Glucose (UA) Negative (Negative) Urine Ketones Negative (Negative) Urine Blood Negative (Negative) Urine Nitrite Positive H (Negative) Urine Bilirubin Negative (Negative) Urine Urobilinogen <2.0 (<2.0) mg/dL Ur Leukocyte Esterase Moderate H (Negative) Urine RBC 3 (0-5) /hpf Urine WBC 33 H (0-5) /hpf Ur Squamous Epith Cells 18 H (0-4) /hpf Urine Bacteria Many H (None) /hpf Urine Mucus Rare H (None) /hpf Disposition Clinical Impression: Nausea & vomiting, Urinary tract infection Disposition: HOME SELF-CARE Condition: Stable Instructions (If sedation given, give patient instructions): Urinary Tract Infection in Women (DC) Additional Instructions: Take prescribed medication as directed. Follow-up primary care. Return to emergency department if symptoms worsen. Prescriptions: Sulfamethox-Tmp 800-160Mg [Bactrim Ds] 1 each PO Q12HR #20 tab Is patient prescribed a controlled substance at d/c from ED?: No Referrals: Santosh Mccord DO [Primary Care Provider] - 1-2 days Time of Disposition: 15:11
[2019-08-10 13:47] LABS: Basophils % (A) 1 %; Eosinophils # (A) 0.2 k/uL (0-0.7); Eosinophils % (A) 3 %; HCT 40.4 % (34.0-46.0); HGB 13.7 gm/dL (11.4-16.0); Lymphocytes # (A) 1.7 k/uL (1.0-4.8); Lymphocytes % (A) 31 %; MCH 28.5 pg (25.0-35.0); MCHC 33.9 g/dL (31.0-37.0); MCV 84.1 fL (80.0-100.0); Mean Platelet Volume 7.2; Monocytes # (A) 0.3 k/uL (0-1.0); Monocytes % (A) 6 %; Neutrophils # (A) 3.1 k/uL (1.3-7.7); Neutrophils % (A) 57 %; Platelet Count 213 k/uL (150-450); RDW 12.4 % (11.5-15.5); WBC 5.5 k/uL (3.8-10.6)
[2019-08-10 13:56] LABS: ALT 27 U/L (4-34); AST 28 U/L (14-36); African American GFR (CKD) >90 (>60 ml/min/1.73 sqM); Albumin 4.1 g/dL (3.5-5.0); Alkaline Phosphatase 87 U/L (38-126); Amylase 53 U/L (30-110); Anion Gap 9 mmol/L; Blood Urea Nitrogen 14 mg/dL (7-17); Calcium 9.2 mg/dL (8.4-10.2); Carbon Dioxide 26 mmol/L (22-30); Chloride 102 mmol/L (98-107); Glucose 94 mg/dL (74-99); Non-African American GFR(CKD) >90 (>60 ml/min/1.73 sqM); Potassium 4.2 mmol/L (3.5-5.1); Sodium 137 mmol/L (137-145); Total Bilirubin 0.7 mg/dL (0.2-1.3); Total Protein 6.9 g/dL (6.3-8.2)
--- NOTE | 2019-08-10 13:59 | XR ---
KUB HISTORY: Abdominal pain Frontal KUB and 2 images correlated to prior CT dated 12/20/2018, KUB 03/15/2016 Ventriculoperitoneal shunt tubing is present looped in the abdomen. There is no pneumoperitoneum or b owel obstruction. Lung bases are clear. Bone mineralization is normal. IMPRESSION: Postop changes.
[2019-08-10 14:06] LABS: Appearance,Urine Cloudy (Clear); Bacteria,Urine Many /hpf; Bilirubin,Urine Negative (Negative); Blood,Urine Negative (Negative); Color,Urine Yellow; Glucose,Urine (UA) Negative (Negative); Ketones,Urine Negative (Negative); Leukocyte Esterase,Urine Moderate (Negative); Mucus,Urine Rare /hpf; Nitrite,Urine Positive (Negative); Protein,Urine Negative (Negative); RBC,Urine 3 /hpf (0-5); Specific Gravity,Urine 1.021 (1.001-1.035); Squamous Epithelial Cell,Urine 18 /hpf (0-4); Urobilinogen,Urine <2.0 mg/dL (<2.0); WBC,Urine 33 /hpf (0-5)
[2019-08-10] MEDS ORDERED: cefTRIAXone IN SWFI 1,000 MG/10 ML SYRINGE IVP STA (15:08)
[2019-08-10 15:27] VITALS: BP 119/85; PULSE 70; RESP 19
== END 2019-08-10 15:30 | disposition home or self-care (01) ==
LOC: EC 12:27
DX: N39.0 Urinary tract infection, site not specified (principal); R11.2 Nausea with vomiting, unspecified; J45.909 Unspecified asthma, uncomplicated; K58.9 Irritable bowel syndrome, unspecified; M32.9 Systemic lupus erythematosus, unspecified; Z88.6 Allergy status to analgesic agent; Z88.8 Allergy status to other drugs, medicaments and biological substances; Z79.52 Long term (current) use of systemic steroids; Z79.891 Long term (current) use of opiate analgesic; Z79.899 Other long term (current) drug therapy; Z98.2 Presence of cerebrospinal fluid drainage device; Z87.728 Personal history of other specified (corrected) congenital malformations of nervous system and sense organs; Z87.448 Personal history of other diseases of urinary system
CPT/HCPCS: 36415; 80053; 82150; 83690; 85025; 81001; 87086; 74018; 99284; 96374; 96361; J0696

== ENCOUNTER 2019-08-17 14:58 | Inpatient (IN) | payer MEDICARE, OTHER ==
[2019-08-17] MEDS ORDERED: SODIUM CHLORIDE 0.9% 500 ML 500 ML IV ONE ×2 (15:11→16:43)
[2019-08-17] MEDS ORDERED: SODIUM CHLORIDE 0.9% 1,000 ML IV ONE (15:11)
--- NOTE | 2019-08-17 15:46 | ED ---
Female Urogenital HPI - General Chief complaint: Urogenital Stated complaint: kidney infection Time Seen by Provider: 08/17/19 15:11 Source: patient Mode of arrival: ambulatory Limitations: no limitations - History of Present Illness Initial comments: 39-year-old female sent for admission for possible kidney infection. Patient states that she has been treated for UTI with both Bactrim and Macrobid now over the course of the past 10 days. She states that she's continues to have dysuria or urgency frequency and has history of interstitial cystitis. Patient is also complaining of general malaise chills. She states that she takes Percocet daily is unsure if this is masking any type of fever. Patient denies any headache or neck stiffness vomiting visual changes. Admits to nausea. She states the pain was mostly of the right flank. Patient denies chest pain or SOB. Admits to cough, and congestions. Patient has no other complaints and upon arrival she appears nontoxic. Sent by PCP for admission to Dr. Beyer through the emergency department. - Related Data Home Medications Medication Instructions Recorded Confirmed Albuterol Inhaler [Ventolin 2 puff INHALATION Q4-6H PRN 04/24/14 12/20/18 Inhaler] Hyoscyamine Sulfate [Levsin-Sl] 0.125 mg SL AC-TID 10/24/14 12/20/18 Cetirizine HCl [Zyrtec] 10 mg PO DAILY 11/18/15 12/20/18 Diphenoxylate HCl/Atropine 1 tab PO QID PRN 11/18/15 12/20/18 [Lomotil] Montelukast Sodium [Singulair] 10 mg PO HS 08/13/18 12/20/18 Morphine Sulfate ER [Ms Contin] 15 mg PO HS 08/13/18 12/20/18 Ondansetron Odt [Zofran Odt] 8 mg PO Q12HR PRN 08/13/18 12/20/18 Oxybutynin Chloride [Oxybutynin 15 mg PO DAILY 08/13/18 12/20/18 Chloride ER] Pentosan Polysulfate Sodium 100 mg PO TID 08/13/18 12/20/18 [Elmiron] oxyCODONE-APAP 10-325MG [Percocet 1 tab PO 5XD PRN 08/13/18 12/20/18 10-325 mg] Dexamethasone 0.5 mg PO BID 12/20/18 12/20/18 LORazepam [Ativan] 0.5 - 1 mg PO HS 12/20/18 12/20/18 Previous Rx's Medication Instructions Recorded Sulfamethox-Tmp 800-160Mg [Bactrim 1 each PO Q12HR #20 tab 08/10/19 Ds] Allergies Allergy/AdvReac Type Severity Reaction Status Date / Time ibuprofen [From Motrin] Allergy Unknown Verified 08/17/19 15:09 metoclopramide HCl Allergy Rapid Verified 08/17/19 15:09 [From Reglan] Heart Rate prochlorperazine Allergy Hallucinati Verified 08/17/19 15:09 [From Compazine] ons Review of Systems ROS Statement: Those systems with pertinent positive or pertinent negative responses have been documented in the HPI. ROS Other: All systems not noted in ROS Statement are negative. Past Medical History Past Medical History: Asthma Additional Past Medical History / Comment(s): chiari malformation, migraines, uti, uterine mass, infected wisdom tooth. IBS, lupus History of Any Multi-Drug Resistant Organisms: None Reported Past Surgical History: Tonsillectomy, Tubal Ligation Additional Past Surgical History / Comment(s): chiari decompression, shunt to brain brain surgery x5. bladder suspenion fe 1 Past Psychological History: ADD/ADHD Smoking Status: Never smoker Past Alcohol Use History: None Reported Past Drug Use History: None Reported General Exam - General Exam Comments Initial Comments: General: The patient is awake and alert, in no distress Eye: Pupils are equal, round and reactive to light, extra-ocular movements are intact. No nystagmus. There is normal conjunctiva bilaterally. No signs of icterus. Ears, nose, mouth and throat: There are moist mucous membranes and no oral lesions. Neck: The neck is supple, there is no tenderness or JVD. Cardiovascular: There is a regular rate and rhythm. No murmur, rub or gallop is appreciated. Respiratory: Lungs are clear to auscultation, respirations are non-labored, breath sounds are equal. No wheezes, stridor, rales, or rhonchi. Gastrointestinal: Soft, non-distended, non-tender abdomen without masses or organomegaly noted. There is no rebound or guarding present. No CVA tenderness. Musculoskeletal: Normal ROM, no tenderness. Strength 5/5. Sensation intact. Pulses equal bilaterally 2+. Neurological: A&O x 3. CN II-XII intact grossly, There are no obvious motor or sensory deficits. Coordination appears grossly intact. Speech is normal. Skin: Skin is warm and dry and no rashes or lesions are noted. Psychiatric: Cooperative, appropriate mood & affect, normal judgment. Limitations: no limitations Course Vital Signs 08/17/19 15:05 Temperature 98.3 F Pulse Rate 107 H Respiratory 20 Rate Blood Pressure 143/82 O2 Sat by Pulse 97 Oximetry Medical Decision Making - Medical Decision Making 39-year-old female presenting today for chief complaint of admission for urinary tract infection. Failed outpatient treatment. Patient states she has interstitial cystitis aspic UTIs. She had positive urine culture outpatient and has been on 2 antibiotics but continues to have dysuria or urgency and has malaise similar to when she has had urinary tract infections in the past. Patient denies any headache or neck stiffness photophobia. Patient states she has had cough and congestion. CXR clear of focal infiltrates. Physical examination unremarkable aside from dry cough. Discussed case with Dr. Schrader, who recommended urine culture and admission given patient continues to be symptomatic with constitutional symptoms. Discussed patient PMH/surgical history presenting symptoms/PE findings with attending he spoke with patients PCP and is agreeable to care plan and admission. Previous culture reviewed revealing a sensitivity to Rocephin. - Lab Data Result diagrams: 08/17/19 15:50 08/17/19 15:50 Lab Results 08/17/19 08/17/19 08/17/19 Range/Units 15:50 15:50 15:50 WBC 5.2 (3.8-10.6) k/uL RBC 4.85 (3.80-5.40) m/uL Hgb 14.0 (11.4-16.0) gm/dL Hct 40.3 (34.0-46.0) % MCV 83.1 (80.0-100.0) fL MCH 28.8 (25.0-35.0) pg MCHC 34.7 (31.0-37.0) g/dL RDW 12.4 (11.5-15.5) % Plt Count 246 (150-450) k/uL Neutrophils % 65 % Lymphocytes % 27 % Monocytes % 4 % Eosinophils % 2 % Basophils % 0 % Neutrophils # 3.4 (1.3-7.7) k/uL Lymphocytes # 1.4 (1.0-4.8) k/uL Monocytes # 0.2 (0-1.0) k/uL Eosinophils # 0.1 (0-0.7) k/uL Basophils # 0.0 (0-0.2) k/uL Sodium 135 L (137-145) mmol/L Potassium 4.4 (3.5-5.1) mmol/L Chloride 103 (98-107) mmol/L Carbon Dioxide 25 (22-30) mmol/L Anion Gap 7 mmol/L BUN 17 (7-17) mg/dL Creatinine 0.89 (0.52-1.04) mg/dL Est GFR (CKD-EPI)AfAm >90 (>60 ml/min/1.73 sqM) Est GFR (CKD-EPI)NonAf 83 (>60 ml/min/1.73 sqM) Glucose 92 (74-99) mg/dL Plasma Lactic Acid Paulino (0.7-2.0) mmol/L Calcium 9.1 (8.4-10.2) mg/dL Total Bilirubin 1.2 (0.2-1.3) mg/dL AST 38 H (14-36) U/L ALT 38 H (4-34) U/L Alkaline Phosphatase 98 (38-126) U/L Total Protein 7.0 (6.3-8.2) g/dL Albumin 4.1 (3.5-5.0) g/dL Urine Color Urine Appearance (Clear) Urine pH (5.0-8.0) Ur Specific [place] (1.001-1.035) Urine Protein (Negative) Urine Glucose (UA) (Negative) Urine Ketones (Negative) Urine Blood (Negative) Urine Nitrite (Negative) Urine Bilirubin (Negative) Urine Urobilinogen (<2.0) mg/dL Ur Leukocyte Esterase (Negative) Urine RBC (0-5) /hpf Urine WBC (0-5) /hpf Ur Squamous Epith Cells (0-4) /hpf Urine Bacteria (None) /hpf Urine Mucus (None) /hpf Urine HCG, Qual Not Detected (Not Detectd) Influenza Type A RNA (Not Detectd) Influenza Type B (PCR) (Not Detectd) 08/17/19 08/17/19 08/17/19 Range/Units 15:50 15:50 16:10 WBC (3.8-10.6) k/uL RBC (3.80-5.40) m/uL Hgb (11.4-16.0) gm/dL Hct (34.0-46.0) % MCV (80.0-100.0) fL MCH (25.0-35.0) pg MCHC (31.0-37.0) g/dL RDW (11.5-15.5) % Plt Count (150-450) k/uL Neutrophils % % Lymphocytes % % Monocytes % % Eosinophils % % Basophils % % Neutrophils # (1.3-7.7) k/uL Lymphocytes # (1.0-4.8) k/uL Monocytes # (0-1.0) k/uL Eosinophils # (0-0.7) k/uL Basophils # (0-0.2) k/uL Sodium (137-145) mmol/L Potassium (3.5-5.1) mmol/L Chloride (98-107) mmol/L Carbon Dioxide (22-30) mmol/L Anion Gap mmol/L BUN (7-17) mg/dL Creatinine (0.52-1.04) mg/dL Est GFR (CKD-EPI)AfAm (>60 ml/min/1.73 sqM) Est GFR (CKD-EPI)NonAf (>60 ml/min/1.73 sqM) Glucose (74-99) mg/dL Plasma Lactic Acid Paulino 0.7 (0.7-2.0) mmol/L Calcium (8.4-10.2) mg/dL Total Bilirubin (0.2-1.3) mg/dL AST (14-36) U/L ALT (4-34) U/L Alkaline Phosphatase (38-126) U/L Total Protein (6.3-8.2) g/dL Albumin (3.5-5.0) g/dL Urine Color Yellow Urine Appearance Cloudy H (Clear) Urine pH 5.5 (5.0-8.0) Ur Specific [place] 1.022 (1.001-1.035) Urine Protein Trace H (Negative) Urine Glucose (UA) Negative (Negative) Urine Ketones Negative (Negative) Urine Blood Negative (Negative) Urine Nitrite Negative (Negative) Urine Bilirubin Negative (Negative) Urine Urobilinogen <2.0 (<2.0) mg/dL Ur Leukocyte Esterase Trace H (Negative) Urine RBC <1 (0-5) /hpf Urine WBC 2 (0-5) /hpf Ur Squamous Epith Cells 7 H (0-4) /hpf Urine Bacteria Few H (None) /hpf Urine Mucus Moderate H (None) /hpf Urine HCG, Qual (Not Detectd) Influenza Type A RNA Not Detected (Not Detectd) Influenza Type B (PCR) Not Detected (Not Detectd) Disposition Clinical Impression: UTI (urinary tract infection), Failure of outpatient treatment, Dysuria, Frequency of urination Disposition: ADMITTED IP TO THIS HOSP Condition: Stable Is patient prescribed a controlled substance at d/c from ED?: No Referrals: Santosh Mccord DO [Primary Care Provider] - 1-2 days Time of Disposition: 16:43 Decision to Admit Reason: Admit from EC Decision Date: 08/17/19 Decision Time: 16:43
[2019-08-17] MEDS ORDERED: ONDANSETRON 4 MG/2 ML VIAL IVP STA (16:03)
--- NOTE | 2019-08-17 16:09 | XR ---
EXAMINATION TYPE: XR chest 2V DATE OF EXAM: 08/17/2019 COMPARISON: Prior chest x-ray 10/24/2014 HISTORY: Cough TECHNIQUE: Frontal and lateral views of the chest are obtained. FINDINGS: Suspect ventriculoperitoneal shunt tubing is present over the right neck and chest coursing towards the abdomen, correlate. Right hemidiaphragm is mildly elevated as on prior exam. There is br onchial wall thickening. There is no focal air space opacity, pleural effusion, or pneumothorax seen. The cardiac silhouette size is within normal limits. The osseous structures are intact. IMPRESSION: Correlate for bronchitis and follow-up as indicated.
[2019-08-17 16:10] LABS: Appearance,Urine Cloudy (Clear); Bacteria,Urine Few /hpf; Bilirubin,Urine Negative (Negative); Blood,Urine Negative (Negative); Color,Urine Yellow; Glucose,Urine (UA) Negative (Negative); Ketones,Urine Negative (Negative); Leukocyte Esterase,Urine Trace (Negative); Mucus,Urine Moderate /hpf; Nitrite,Urine Negative (Negative); PH, Urine 5.5 (5.0-8.0); Protein,Urine Trace (Negative); RBC,Urine <1 /hpf (0-5); Specific Gravity,Urine 1.022 (1.001-1.035); Squamous Epithelial Cell,Urine 7 /hpf (0-4); Urobilinogen,Urine <2.0 mg/dL (<2.0); WBC,Urine 2 /hpf (0-5)
[2019-08-17 16:15] LABS: ALT 38 U/L (4-34); AST 38 U/L (14-36); African American GFR (CKD) >90 (>60 ml/min/1.73 sqM); Albumin 4.1 g/dL (3.5-5.0); Alkaline Phosphatase 98 U/L (38-126); Anion Gap 7 mmol/L; Blood Urea Nitrogen 17 mg/dL (7-17); Calcium 9.1 mg/dL (8.4-10.2); Carbon Dioxide 25 mmol/L (22-30); Chloride 103 mmol/L (98-107); Glucose 92 mg/dL (74-99); Non-African American GFR(CKD) 83 (>60 ml/min/1.73 sqM); Potassium 4.4 mmol/L (3.5-5.1); Sodium 135 mmol/L (137-145); Total Bilirubin 1.2 mg/dL (0.2-1.3)
[2019-08-17 16:26] LABS: Basophils % (A) 0 %; Eosinophils # (A) 0.1 k/uL (0-0.7); Eosinophils % (A) 2 %; HCT 40.3 % (34.0-46.0); Lymphocytes # (A) 1.4 k/uL (1.0-4.8); Lymphocytes % (A) 27 %; MCH 28.8 pg (25.0-35.0); MCHC 34.7 g/dL (31.0-37.0); MCV 83.1 fL (80.0-100.0); Mean Platelet Volume 7.3; Monocytes # (A) 0.2 k/uL (0-1.0); Monocytes % (A) 4 %; Neutrophils # (A) 3.4 k/uL (1.3-7.7); Neutrophils % (A) 65 %; Platelet Count 246 k/uL (150-450); RBC 4.85 m/uL (3.80-5.40); RDW 12.4 % (11.5-15.5); WBC 5.2 k/uL (3.8-10.6)
[2019-08-17] MEDS ORDERED: ONDANSETRON 4 MG/2 ML VIAL IVP PRN (16:36)
[2019-08-17] MEDS ORDERED: ACETAMINOPHEN TAB 325 MG TAB PO PRN (16:36)
[2019-08-17] MEDS ORDERED: NALOXONE 0.4 MG/ML 1 ML VIAL IV PRN (16:36)
[2019-08-17] MEDS: SODIUM CHLORIDE 0.9% 1,000 ML IV SCH (17:13)
[2019-08-17] MEDS: MORPHINE SULFATE 4 MG/ML SYRINGE IV PRN (20:52)
[2019-08-18] MEDS: MORPHINE SULFATE 4 MG/ML SYRINGE IV PRN ×5 (00:50→22:30)
[2019-08-18] MEDS: SODIUM CHLORIDE 0.9% 1,000 ML IV SCH ×3 (00:50→22:30)
[2019-08-18] MEDS ORDERED: tiZANidine 4 MG TAB PO PRN (19:13)
--- NOTE | 2019-08-18 19:24 | P.HPIM ---
History of Present Illness H&P Date: 08/18/19 History of presenting complaint: This is a pleasant 39-year-old patient of Dr. Mccord. Chronic stable medical conditions include asthma, chiari syndrome and the brain, irritable bowel syndrome, lupus. Patient has known interstitial cystitis and does follow with Dr. Price from urology. Patient because of which she artery syndrome also has had hydrocephalus with a FILTERER shunt. Patient started of with increasing abdominal pain back pain went down to the ER was put on antibiotics and sent home sent home.. Patient went to see her family doctor and the cultures came back E. coli. It was felt that she'll need IV antibiotics and sent to the ER. Patient also some fevers at home tired rundown. Also had some dysuria and suprapubic pain. It was felt to be possibly pyelonephritis. Given a dose of ceftriaxone in the ER. Appetite had gone on a bit. Review of systems: GEN.: Fever, tired EYES: None HEENT: None NECK: None RESPIRATORY: None CARDIOVASCULAR: None GASTROINTESTINAL: None GENITOURINARY: As above MUSCULOSKELETAL: None LYMPHATICS: None HEMATOLOGICAL: None PSYCHIATRY: None NEUROLOGICAL: None Past medical history to include: Asthma, chiari syndrome with hydrocephalus and FILTERER shunt, NG tube all syndrome, lupus, migraines, interstitial cystitis Social history: Doesn't smoke or drink alcohol. . Physical examination: VITAL SIGNS: 98.3-444-91-143/82-97% on room air GENERAL: BMI 33.8, laying in bed not in distress]. EYES: Pupils equal. Conjunctiva normal. HEENT: External appearance of nose and ears normal, oral cavity grossly normal. NECK: JVD not raised; masses not palpable. HEART: First and second heart sounds are normal; no edema. LUNGS: Respiratory rate normal; clear to auscultation. ABDOMEN: Soft, mild suprapubic tenderness, liver spleen not palpable, no masses palpable. No renal angle tenderness PSYCH: Alert and oriented x3; mood and affect normal. NEUROLOGICAL: Cranial nerves grossly intact; no facial asymmetry, power and sensation grossly intact. LYMPHATICS: No lymph nodes palpable in the axilla and neck INVESTIGATIONS, reviewed in the clinical context: White count 5.2 hemoglobin 14 platelets 246 potassium 4.4 bun 17 creatinine 0.89 UA positive for leukoesterase, bacteria, 7 squamous epithelial cells, Influenza type A and B both negative UA culture from 2 days ago showing E. coli Assessment: -Acute UTI was suspected.Admitted in a patient with underlying interstitial cystitis from E. 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 Other home medications to be resumed. Lovenox for DVT prophylaxis. IV fluids. Care was discussed with the patient question were answered. Patient will follow-up with urology as an outpatient. Past Medical History Past Medical History: Asthma Additional Past Medical History / Comment(s): chiari malformation, migraines, uti, uterine mass, infected wisdom tooth. IBS, lupus, interstitial cystitis. History of Any Multi-Drug Resistant Organisms: None Reported Past Surgical History: Tonsillectomy, Tubal Ligation Additional Past Surgical History / Comment(s): chiari decompression, shunt to brain brain surgery x5. bladder suspenion aug 11, hysterectomy. Past Anesthesia/Blood Transfusion Reactions: No Reported Reaction Past Psychological History: ADD/ADHD Smoking Status: Never smoker Past Alcohol Use History: None Reported Past Drug Use History: None Reported - Past Family History Mother Family Medical History: No Reported History Father Family Medical History: Unable to Obtain Medications and Allergies Home Medications Medication Instructions Recorded Confirmed Type Albuterol Inhaler [Ventolin 2 puff INHALATION Q4-6H PRN 04/24/14 08/17/19 History Inhaler] Hyoscyamine Sulfate [Levsin-Sl] 0.125 mg SL AC-TID 10/24/14 08/17/19 History Cetirizine HCl [Zyrtec] 10 mg PO DAILY 11/18/15 08/17/19 History Diphenoxylate HCl/Atropine 1 tab PO QID PRN 11/18/15 08/17/19 History [Lomotil] Montelukast Sodium [Singulair] 10 mg PO HS 08/13/18 08/17/19 History Morphine Sulfate ER [Ms Contin] 15 mg PO HS 08/13/18 08/17/19 History Ondansetron Odt [Zofran Odt] 8 mg PO Q12HR PRN 08/13/18 08/17/19 History Oxybutynin Chloride [Oxybutynin 15 mg PO DAILY 08/13/18 08/17/19 History Chloride ER] Pentosan Polysulfate Sodium 100 mg PO TID 08/13/18 08/17/19 History [Elmiron] oxyCODONE-APAP 10-325MG [Percocet 1 tab PO 5XD PRN 08/13/18 08/17/19 History 10-325 mg] Amitriptyline HCl [Elavil] 25 mg PO HS 08/17/19 08/17/19 History Lidocaine/Malox/Benadryl 1:1:1 5 ml PO Q6H PRN 08/17/19 08/17/19 History Nortriptyline [Pamelor] 10 mg PO HS 08/17/19 08/17/19 History Ranitidine HCl [Zantac] 150 mg PO BID 08/17/19 08/17/19 History clonazePAM [KlonoPIN] 1 mg PO HS 08/17/19 08/17/19 History diphenhydrAMINE [Benadryl] 25 mg PO HS 08/17/19 08/17/19 History tiZANidine [Zanaflex] 4 mg PO Q8HR PRN 08/17/19 08/17/19 History Allergies Allergy/AdvReac Type Severity Reaction Status Date / Time ibuprofen [From Motrin] Allergy Unknown Verified 08/17/19 18:37 metoclopramide HCl Allergy Rapid Verified 08/17/19 18:37 [From Reglan] Heart Rate prochlorperazine Allergy Hallucinati Verified 08/17/19 18:37 [From Compazine] ons Physical Exam Vitals: Vital Signs Temp Pulse Pulse Resp BP BP Pulse Ox 08/18/19 15:39 97.9 F 85 20 118/80 95 08/18/19 12:30 98.7 F 08/18/19 08:38 97.9 F 78 20 114/78 96 08/18/19 01:02 97.7 F 78 18 109/73 97 08/17/19 21:10 97.9 F 70 18 134/97 99 08/17/19 19:21 98 F 78 16 138/70 98 Intake and Output 08/18/19 08/18/19 08/18/19 06:59 14:59 22:59 Intake Total 1340 600 Output Total 540 200 Balance 1340 60 -200 Intake: Intake, IV Titration 800 Amount Sodium Chloride 0.9% 1, 800 000 ml @ 100 mls/hr IV . Q10H [facility] Rx#:[id number] Oral 540 600 Output: Urine 540 200 Other: Voiding Method Toilet Toilet # Voids 3 1 Results CBC & Chem 7: 08/17/19 15:50 08/17/19 15:50 Labs: Microbiology - Last 24 Hours (Table) 08/17/19 15:50 Blood Culture - Preliminary Blood No Growth after 24 hours Thrombosis Risk Factor Assmnt - Choose All That Apply Any of the Below Risk Factors Present?: Yes Each Factor Represents 1 point: Obesity (BMI >25) Other Risk Factors: No Other congenital or acquired thrombophilia - If yes, enter type in comment: No Thrombosis Risk Factor Assessment Total Risk Factor Score: 1 Thrombosis Risk Factor Assessment Level: Low Risk
[2019-08-18] MEDS: OXYBUTYNIN 15 MG TAB.ER.24 PO SCH (20:19)
[2019-08-18] MEDS: FAMOTIDINE 20 MG TAB PO SCH (20:19)
[2019-08-18] MEDS: oxyCODONE-APAP 10-325MG 1 EACH TAB PO PRN (20:30)
[2019-08-18] MEDS ORDERED: MORPHINE SULFATE ER 15 MG TABLET PO SCH (21:00)
[2019-08-18] MEDS ORDERED: MONTELUKAST 10 MG TAB PO SCH (21:00)
[2019-08-18] MEDS ORDERED: clonazePAM 1 MG TAB PO SCH (21:00)
[2019-08-18] MEDS ORDERED: AMITRIPTYLINE HCL 25 MG TAB PO SCH (21:00)
[2019-08-18] MEDS ORDERED: NORTRIPTYLINE 10 MG CAP PO SCH (21:00)
[2019-08-18] MEDS ORDERED: diphenhydrAMINE 25 MG CAP PO SCH (21:00)
[2019-08-18] MEDS ORDERED: PENTOSAN POLYSULFATE SODIUM 100 MG PO SCH (22:00)
[2019-08-19] MEDS: SODIUM CHLORIDE 0.9% 1,000 ML IV SCH (05:38)
[2019-08-19] MEDS: MORPHINE SULFATE 4 MG/ML SYRINGE IV PRN ×2 (05:38→11:46)
[2019-08-19] MEDS ORDERED: HYOSCYAMINE SULFATE 0.125 MG TAB PO SCH (07:30)
[2019-08-19] MEDS: OXYBUTYNIN 15 MG TAB.ER.24 PO SCH (07:57)
[2019-08-19] MEDS ORDERED: HYOSCYAMINE SULFATE 0.125 MG TAB PO PRN (08:03)
[2019-08-19] MEDS: oxyCODONE-APAP 10-325MG 1 EACH TAB PO PRN ×2 (08:29→16:30)
[2019-08-19] MEDS: ELMIRON 100 MG PO SCH ×2 (08:30→16:32)
[2019-08-19] MEDS: FAMOTIDINE 20 MG TAB PO SCH (09:00)
[2019-08-19 09:45] VITALS: RESP 20
[2019-08-19] MEDS ORDERED: [UNRECOGNIZED DRUG - OTHER] INHALATION PRN (11:59)
[2019-08-19 17:31] VITALS: BP 138/94; PULSE 62; TEMP 98
--- NOTE | 2019-08-19 22:41 | P.DS ---
Providers Date of admission: 08/17/19 16:42 Expected date of discharge: 08/19/19 Attending physician: Pratik Beyer Primary care physician: Santosh Mccord [facility] Course: History of presenting complaint: This is a pleasant 39-year-old patient of Dr. Mccord. Chronic stable medical conditions include asthma, chiari syndrome and the brain, irritable bowel syndrome, lupus. Patient has known interstitial cystitis and does follow with Ian Price from urology. Patient because of which she artery syndrome also has had hydrocephalus with a AUTOMOTIVE PARTS COORDINATOR shunt. Patient started of with increasing abdominal pain back pain went down to the ER was put on antibiotics and sent home sent home.. Patient went to see her family doctor and the cultures came back E. coli. It was felt that she'll need IV antibiotics and sent to the ER. Patient also some fevers at home tired rundown. Also had some dysuria and suprapubic pain. It was felt to be possibly pyelonephritis. Given a dose of ceftriaxone in the ER. Appetite had gone on a bit. Admitted with-acute UTI from cystitis from E. coli and possible right-sided pyelonephritis. Treated with IV ceftriaxone. IV fluids. Today-doing much better. Tolerating a diet. Symptoms greatly improved. Estefania chen has nitrofurantoin at home. Complete the course of the same. Discussed with patient. Physical examination: VITAL SIGNS: 74-64-67-138/94-97% on room air GENERAL: Sitting up, comfortable EYES: Pupils equal. Conjunctiva normal. HEENT: External appearance of nose and ears normal, oral cavity grossly normal. NECK: JVD not raised; masses not palpable. HEART: First and second heart sounds are normal; no edema. LUNGS: Respiratory rate normal; clear to auscultation. ABDOMEN: Soft, no tenderness, liver spleen not palpable, no masses palpable. No renal angle tenderness PSYCH: Alert and oriented x3; mood and affect normal. INVESTIGATIONS, reviewed in the clinical context: White count 5.2 hemoglobin 14 platelets 246 potassium 4.4 bun 17 creatinine 0.89 UA positive for leukoesterase, bacteria, 7 squamous epithelial cells, Influenza type A and B both negative UA culture from 2 days ago showing E. coli Assessment: -Acute UTI with cystitis from E. coli. 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 with AUTOMOTIVE PARTS COORDINATOR shunt -Irritable bowel syndrome -Chronic lupus -Obesity BMI 33.8 Disposition: Home Patient Condition at Discharge: Stable Plan - Discharge Summary Discharge Rx Participant: Yes New Discharge Prescriptions: New Nitrofurantoin Macrocrystal [Nitrofurantoin] 50 mg PO BID #10 capsule Continue Albuterol Inhaler [Ventolin Hfa Inhaler] 2 puff INHALATION Q4-6H PRN PRN Reason: Bronchodilation Hyoscyamine Sulfate [Levsin-Sl] 0.125 mg SL AC-TID Diphenoxylate HCl/Atropine [Lomotil] 1 tab PO QID PRN PRN Reason: Diarrhea Cetirizine HCl [Zyrtec] 10 mg PO DAILY Ondansetron Odt [Zofran ODT] 8 mg PO Q12HR PRN PRN Reason: Nausea Pentosan Polysulfate Sodium [Elmiron] 100 mg PO TID Oxybutynin Chloride [Oxybutynin Chloride ER] 15 mg PO DAILY Montelukast Sodium [Singulair] 10 mg PO HS oxyCODONE-APAP 10-325MG [Percocet 10-325 mg] 1 tab PO 5XD PRN PRN Reason: Pain Morphine Sulfate ER [Ms Contin] 15 mg PO HS diphenhydrAMINE [Benadryl] 25 mg PO HS Lidocaine/Malox/Benadryl 1:1:1 5 ml PO Q6H PRN PRN Reason: MOUTH SORES clonazePAM [KlonoPIN] 1 mg PO HS Ranitidine HCl [Zantac] 150 mg PO BID Nortriptyline [Pamelor] 10 mg PO HS tiZANidine [Zanaflex] 4 mg PO Q8HR PRN PRN Reason: Muscle Spasm Amitriptyline HCl [Elavil] 25 mg PO HS Discharge Medication List Albuterol Inhaler [Ventolin Hfa Inhaler] 2 puff INHALATION Q4-6H PRN 04/24/14 [History] Hyoscyamine Sulfate [Levsin-Sl] 0.125 mg SL AC-TID 10/24/14 [History] Cetirizine HCl [Zyrtec] 10 mg PO DAILY 11/18/15 [History] Diphenoxylate HCl/Atropine [Lomotil] 1 tab PO QID PRN 11/18/15 [History] Montelukast Sodium [Singulair] 10 mg PO HS 08/13/18 [History] Morphine Sulfate ER [Ms Contin] 15 mg PO HS 08/13/18 [History] Ondansetron Odt [Zofran ODT] 8 mg PO Q12HR PRN 08/13/18 [History] Oxybutynin Chloride [Oxybutynin Chloride ER] 15 mg PO DAILY 08/13/18 [History] Pentosan Polysulfate Sodium [Elmiron] 100 mg PO TID 08/13/18 [History] oxyCODONE-APAP 10-325MG [Percocet 10-325 mg] 1 tab PO 5XD PRN 08/13/18 [History] Amitriptyline HCl [Elavil] 25 mg PO HS 08/17/19 [History] Lidocaine/Malox/Benadryl 1:1:1 5 ml PO Q6H PRN 08/17/19 [History] Nortriptyline [Pamelor] 10 mg PO HS 08/17/19 [History] Ranitidine HCl [Zantac] 150 mg PO BID 08/17/19 [History] clonazePAM [KlonoPIN] 1 mg PO HS 08/17/19 [History] diphenhydrAMINE [Benadryl] 25 mg PO HS 08/17/19 [History] tiZANidine [Zanaflex] 4 mg PO Q8HR PRN 08/17/19 [History] Nitrofurantoin Macrocrystal [Nitrofurantoin] 50 mg PO BID #10 capsule 08/19/19 [Rx] Follow up Appointment(s)/Referral(s): Santosh Mccord DO [Primary Care Provider] - 1-2 days Patient Instructions/Handouts: Interstitial Cystitis (GEN) Activity/Diet/Wound Care/Special Instructions: ATTN: NURSE DOING DISCHARGE...PT HAS HOME MEDS ON OUR MED CART. PLEASE GIVE PRIOR TO HER LEAVING UNIT AT [facility]. FOLLOW UP DIRECTED, SOONER IF PROBLEMS OR CONCERNS. Discharge Disposition: HOME SELF-CARE
== END 2019-08-19 18:48 | disposition home or self-care (01) | DRG 689 ==
LOC: EC 14:58 → 6PED 16:42
PROVIDERS: ADMIT Hospitalist; ATTEND Hospitalist
DX: N10 Acute pyelonephritis (principal); I82.0 Budd-Chiari syndrome; G91.9 Hydrocephalus, unspecified; N30.10 Interstitial cystitis (chronic) without hematuria; E66.9 Obesity, unspecified; Z68.33 Body mass index [BMI] 33.0-33.9, adult; J45.20 Mild intermittent asthma, uncomplicated; F90.9 Attention-deficit hyperactivity disorder, unspecified type; K58.9 Irritable bowel syndrome, unspecified; Z79.891 Long term (current) use of opiate analgesic; Z79.899 Other long term (current) drug therapy; Z87.440 Personal history of urinary (tract) infections; Z90.710 Acquired absence of both cervix and uterus; Z98.2 Presence of cerebrospinal fluid drainage device; Z88.6 Allergy status to analgesic agent; Z88.8 Allergy status to other drugs, medicaments and biological substances; M32.9 Systemic lupus erythematosus, unspecified; B96.20 Unspecified Escherichia coli [E. coli] as the cause of diseases classified elsewhere
CPT/HCPCS: 36415; 71046; 80053; 81001; 81025; 83605; 85025; 87040; 87502; 96361; 96365; 96375; 99285

== ENCOUNTER → 2019-09-24 | Outpatient (CLI) | payer MEDICARE | END | disposition home or self-care (01) | CPT/HCPCS: 74176; 81001; 87077; 87086; 87186 ==

== ENCOUNTER → 2020-04-02 | Outpatient (CLI) | payer MEDICARE, OTHER ==
--- NOTE | 2020-04-02 11:37 | XR ---
EXAMINATION TYPE: XR abdomen complete w decub DATE OF EXAM: 04/02/2020 COMPARISON: 08/10/2019 HISTORY: Pain possible constipation TECHNIQUE: Supine, upright, and left side down lateral decubitus views of the abdomen are obtained. FINDINGS: A catheter overlying the abdomen likely related to PHOTONICS ENGINEER shunt catheter stable. Bowel gas rex lakshmi nonspecific with retained fecal debris throughout the colon. Calcifications in the upper quadrant s are stable. Be related to the rib cage. Mild hypertrophic change of the spine. Mild arthropathy of the hips. IMPRESSION: Nonspecific abdomen with retained fecal debris, correlate for constipation.
== END | disposition home or self-care (01) ==
LOC: RADXRMAIN 11:03
PROVIDERS: ATTEND Internal Medicine Gastroenterology
DX: K59.00 Constipation, unspecified (principal)
CPT/HCPCS: 74021

== ENCOUNTER 2020-05-19 23:25 | Emergency (ER) | payer MEDICARE, OTHER ==
[2020-05-19 23:35] VITALS: TEMP 98.2
[2020-05-19] MEDS ORDERED: SODIUM CHLORIDE 0.9% 1,000 ML IV STA (23:46)
[2020-05-20] LABS: Basophils % (A) 1 %; Eosinophils % (A) 3 %; HCT 39.8 % (34.0-46.0); HGB 14.2 gm/dL (11.4-16.0); Lymphocytes % (A) 33 %; MCH 30.4 pg (25.0-35.0); MCHC 35.8 g/dL (31.0-37.0); MCV 85.1 fL (80.0-100.0); Monocytes % (A) 4 %; Neutrophils % (A) 56 %; Platelet Count 262 k/uL (150-450); RBC 4.68 m/uL (3.80-5.40); RDW 12.6 % (11.5-15.5); WBC 7.6 k/uL (3.8-10.6)
[2020-05-20 00:01] LABS: Basophils # (A) 0.1 k/uL (0-0.2); Eosinophils # (A) 0.2 k/uL (0-0.7); Lymphocytes # (A) 2.5 k/uL (1.0-4.8); Monocytes # (A) 0.3 k/uL (0-1.0); Neutrophils # (A) 4.3 k/uL (1.3-7.7)
[2020-05-20 00:15] LABS: ALT 33 U/L (4-34); AST 36 U/L (14-36); African American GFR (CKD) >90 (>60 ml/min/1.73 sqM); Alkaline Phosphatase 106 U/L (38-126); Anion Gap 8 mmol/L; Blood Urea Nitrogen 14 mg/dL (7-17); Calcium 9.2 mg/dL (8.4-10.2); Carbon Dioxide 23 mmol/L (22-30); Chloride 104 mmol/L (98-107); Glucose 124 mg/dL (74-99); Lipase 126 U/L (23-300); Magnesium 1.5 mg/dL (1.6-2.3); Non-African American GFR(CKD) >90 (>60 ml/min/1.73 sqM); Potassium 3.9 mmol/L (3.5-5.1); Sodium 135 mmol/L (137-145); Total Bilirubin 0.5 mg/dL (0.2-1.3); Total Protein 6.9 g/dL (6.3-8.2)
[2020-05-20 00:18] LABS: D-Dimer 0.26 mg/L FEU (<0.60); INR 0.9 (<1.2); Partial Thromboplastin Time 23.2 sec (22.0-30.0); Prothrombin Time 9.7 sec (9.0-12.0)
[2020-05-20] MEDS ORDERED: MAGNESIUM SULFATE-D5W PMX 1 GM in DEXTROSE/WATER 1 100ML.BAG IVPB ONE (00:21)
--- NOTE | 2020-05-20 00:22 | ED ---
Chest Pain HPI - General Chief Complaint: Chest Pain Stated Complaint: Chest Pain Time Seen by Provider: 05/19/20 23:46 Source: patient Mode of arrival: ambulatory Limitations: no limitations - History of Present Illness Initial Comments: Mony 40-year-old female who presents the ER today for evaluation of sudden onset of chest pain. Patient reports she was sitting watching television when she had a sudden onset of sharp pain mid sternal with associated discomfort in her right arm. No diaphoresis but she felt lightheaded and short of breath. No cardiac history. No history of DVT or PE but she does report she has lupus as well as even understand most. Patient received aspirin and nitro in route to the hospital with resolution of her discomfort. Upon arrival in the ER she is asymptomatic. She denies any recent illness fevers, chills body aches cough or known exposure to COVID Complaint: chest pain - Related Data Home Medications Medication Instructions Recorded Confirmed Albuterol Inhaler (Mhu) [Ventolin 2 puff INHALATION Q4-6H PRN 04/24/14 08/30/19 Hfa Inhaler (Mhu)] Hyoscyamine Sulfate [Levsin-Sl] 0.125 mg SL AC-TID 10/24/14 08/30/19 Cetirizine HCl [Zyrtec] 10 mg PO DAILY 11/18/15 08/30/19 Diphenoxylate HCl/Atropine 1 tab PO QID PRN 11/18/15 08/30/19 [Lomotil] Montelukast Sodium [Singulair] 10 mg PO HS 08/13/18 08/30/19 Morphine Sulfate ER [Ms Contin] 15 mg PO HS 08/13/18 08/30/19 Ondansetron Odt [Zofran ODT] 8 mg PO Q12HR PRN 08/13/18 08/30/19 Oxybutynin Chloride [Oxybutynin 15 mg PO DAILY 08/13/18 08/30/19 Chloride ER] Pentosan Polysulfate Sodium 100 mg PO TID 08/13/18 08/30/19 [Elmiron] oxyCODONE-APAP 10-325MG [Percocet 1 tab PO 5XD PRN 08/13/18 08/30/19 10-325 mg] Amitriptyline HCl [Elavil] 25 mg PO HS 08/17/19 08/30/19 Lidocaine/Malox/Benadryl 1:1:1 5 ml PO Q6H PRN 08/17/19 08/30/19 Nortriptyline [Pamelor] 10 mg PO HS 08/17/19 08/30/19 clonazePAM [KlonoPIN] 1 mg PO HS 08/17/19 08/30/19 diphenhydrAMINE [Benadryl] 25 mg PO HS 08/17/19 08/30/19 raNITIdine HCL [Zantac] 150 mg PO BID 08/17/19 08/30/19 tiZANidine [Zanaflex] 4 mg PO Q8HR PRN 08/17/19 08/30/19 Previous Rx's Medication Instructions Recorded Nitrofurantoin Macrocrystal 50 mg PO BID #10 capsule 08/19/19 [Nitrofurantoin] Allergies Allergy/AdvReac Type Severity Reaction Status Date / Time ibuprofen [From Motrin] Allergy Unknown Verified 05/19/20 23:38 metoclopramide HCl Allergy Rapid Verified 05/19/20 23:38 [From Reglan] Heart Rate prochlorperazine Allergy Hallucinati Verified 05/19/20 23:38 [From Compazine] ons Review of Systems ROS Statement: Those systems with pertinent positive or pertinent negative responses have been documented in the HPI. ROS Other: All systems not noted in ROS Statement are negative. EKG Findings - EKG Comments: EKG Findings:: EKG was obtained due to complaint of chest pain, EKG was obtained at 2336, rate 71 rhythm is sinus there is a normal axis, normal intervals, MA 140, QRS 86, QTC is 419 there are no acute ST elevations or depressions is no evidence of acute ischemia, infarction or arrhythmia. Past Medical History Past Medical History: Asthma Additional Past Medical History / Comment(s): chiari malformation, migraines, uti, uterine mass, infected wisdom tooth. IBS, lupus, interstitial cystitis. POLYNEPHRITIS. History of Any Multi-Drug Resistant Organisms: None Reported Past Surgical History: Tonsillectomy, Tubal Ligation Additional Past Surgical History / Comment(s): chiari decompression, shunt to brain brain surgery x5. bladder suspenion aug 11, hysterectomy. Past Anesthesia/Blood Transfusion Reactions: No Reported Reaction Past Psychological History: ADD/ADHD Smoking Status: Never smoker Past Alcohol Use History: None Reported Past Drug Use History: None Reported - Past Family History Mother Family Medical History: No Reported History Father Family Medical History: Unable to Obtain General Exam - General Exam Comments Initial Comments: Physical Exam GENERAL: Patient is well-developed and well-nourished. Patient is nontoxic and well- hydrated and is in no distress. HENT: Normocephalic, Atraumatic. EYES: PERRL, EOMI PULMONARY: Unlabored respirations. No audible rales rhonchi or wheezing was noted. CARDIOVASCULAR: There is a regular rate and rhythm Click consistent with mitral valve prolapse ABDOMEN: Soft and nontender with normal bowel sounds. SKIN: Skin is clear with no lesions or rashes and otherwise unremarkable. : Deferred NEUROLOGIC: Patient is alert and oriented x3. Moving all extremities spontaneously MUSCULOSKELETAL: Normal extremities with adequate strength and full range of motion. No lower extremity swelling or edema. No calf tenderness. PSYCHIATRIC: Normal psychiatric evaluation. 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 presenting with sudden onset of chest pain that lasted under 5 minutes resolved completely EKG nonischemic Given the history of Da [place] a CTA will be obtained Labs unremarkable Patient remained asymptomatic throughout stay in the ER Repeat troponin ordered at 3h and was also negative At this time patient is stable for discharge home, out patient follow up Disposition Clinical Impression: Atypical chest pain, Hypomagnesemia Disposition: HOME SELF-CARE Condition: Stable Additional Instructions: As we discussed your labs, chest xray, CT scan were all normal Your magnesium level were slightly low Follow up with your regular doctor for re-evaluation or call 911 and return to the ER if you have any recurrent chest pain or develop any new or concerning symptoms Is patient prescribed a controlled substance at d/c from ED?: No Referrals: Santosh Mccord DO [Primary Care Provider] - 1-2 days
--- NOTE | 2020-05-20 00:35 | XR ---
EXAM: XR Chest, 2 Views CLINICAL HISTORY: Chest Pain TECHNIQUE: Frontal and lateral views of the chest. COMPARISON: 08/17/19 FINDINGS: Lungs: No significant abnormality. No consolidation. Pleural space: No significant abnormality. No pneumothorax. Heart: No significant abnormality. No cardiomegaly. Mediastinum: No significant abnormality. Bones/joints: No acute osseous abnormality. Tubes, lines and devices: Presumed ENVIRONMENTAL PROJECTS ADVISOR shunt catheter. IMPRESSION: No acute cardiopulmonary process.
--- NOTE | 2020-05-20 01:43 | CT ---
EXAM: CT Angiography Chest With Intravenous Contrast CLINICAL HISTORY: tearing chest pain, hx of connective tissue disorder TECHNIQUE: Axial computed tomographic angiography images of the chest with intravenous contrast. CTDI is 21.584 mGy and DLP is 467.8 mGy-cm. This CT exam was performed using one or more of the following dose reduction techniques: automated exposure control, adjustment of the mA and/or kV according to patient size, and/or use of iterative reconstruction technique. MIP reconstructed images were created and reviewed. COMPARISON: CXR 08/17/19 FINDINGS: Pulmonary arteries: No pulmonary embolism. Aorta: No acute findings. No thoracic aortic aneurysm. Lungs: Mild atelectasis or scar. Pleural space: No significant abnormality. No significant effusion. No pneumothorax. Heart: No cardiomegaly. No significant pericardial effusion. Bones/joints: Indeterminate small sclerotic focus in the T4 vertebral body. No acute abnormality. Soft tissues: No significant abnormality. Lymph nodes: No significant abnormality. No enlarged lymph nodes. Tubes, lines and devices: Presumed MANAGER OF HUMAN RESOURCES shunt catheter in the anterior chest wall. IMPRESSION: No acute CT findings in the chest. No thoracic aortic aneurysm or dissection.
[2020-05-20 04:10] VITALS: BP 120/97; PULSE 78; RESP 18
== END 2020-05-20 04:15 | disposition home or self-care (01) ==
LOC: EC 23:25
DX: R07.89 Other chest pain (principal); E83.42 Hypomagnesemia; J45.909 Unspecified asthma, uncomplicated; K58.9 Irritable bowel syndrome, unspecified; Z79.899 Other long term (current) drug therapy; Z88.6 Allergy status to analgesic agent; Z88.8 Allergy status to other drugs, medicaments and biological substances
CPT/HCPCS: 36415 ×2; 93005; 85379; 80053; 83690; 83735; 84484 ×2; 85025; 85610; 85730; 71046; 71275; 99285; 96365; 96361 ×2; J3475; Q9967

== ENCOUNTER → 2020-05-30 | Outpatient (CLI) | payer MEDICARE, OTHER ==
--- NOTE | 2020-05-30 11:29 | ECHOF ---
Referral Reason:R06.09 Other forms of dyspnea MEASUREMENTS -------- HEIGHT: 157.5 cm WEIGHT: 85.3 kg BP: RVIDd: 2.6 cm (< 3.3) IVSd: 1.2 cm (0.6 - 1.1) LVIDd: 3.2 cm (3.9 - 5.3) LVPWd: 1.3 cm (0.6 - 1.1) IVSs: 1.6 cm LVIDs: 2.1 cm LVPWs: 1.4 cm LA Diam: 2.8 cm (2.7 - 3.8) Ao Diam: 2.7 cm (2.0 - 3.7) AV Cusp: 1.4 cm (1.5 - 2.6) MV EXCURSION: 13.189 mm (> 18.000) MV EF SLOPE: 66 mm/s (70 - 150) EPSS: 0.5 cm MV E Los: 0.70 m/s MV DecT: 224 ms MV A Los: 0.74 m/s MV E/A Ratio: 0.94 RAP: 5.00 mmHg RVSP: 11.16 mmHg FINDINGS -------- Sinus rhythm. This was a technically good study. The left ventricular size is normal. There is borderline concentric left ventricular hypertrophy. Overall left ventricular systolic function is normal with, an EF between 55 - 60 %. The right ventricle is normal in size. The left atrial size is normal. The right atrial size is normal. The aortic valve is trileaflet, and appears structurally normal. No aortic stenosis or regurgitation. Mild mitral regurgitation is present. Mild tricuspid regurgitation present. Right ventricular systolic pressure is normal at < 35 mmHg. There is no pulmonic regurgitation present. The aortic root size is normal. There is no pericardial effusion. CONCLUSIONS -------- 1. The left ventricular size is normal. 2. There is borderline concentric left ventricular hypertrophy. 3. Overall left ventricular systolic function is normal with, an EF between 55 - 60 %. 4. The right ventricle is normal in size. 5. The left atrial size is normal. 6. The right atrial size is normal. 7. The aortic valve is trileaflet, and appears structurally normal. No aortic stenosis or regurgitati on. 8. Mild mitral regurgitation is present. 9. Mild tricuspid regurgitation present. 10. The aortic root size is normal. 11. There is no pericardial effusion. RURAL CARRIER ASSOCIATE: Erica Mccall RDCS
--- NOTE | 2020-05-30 11:45 | P.STRESS ---
- Stress Test Note Stress Test Results/Findings: Exam Performed: NM stress lexiscan cardiolite Exam Date: 05/30/20 Reason for Exam: Chest Pain Height: 5 ft 2 in Weight: 80.739 kg Protocol: Lexiscan Stage: na Duration of Exercise: na Resting Heart Rate: 79 Resting Blood Pressure: 113/79 Maximum Achieved Heart Rate: 118 Maximum Achieved Blood Pressure: 137/74 85% PMHR: 154 100% PMHR: 181 METS: na Technologist Comment: Stress Test Results/Findings: At baseline EKG showed normal sinus rhythm, normal axis, no significant ST or T- wave abnormalities. Patient recieved IV infusion of Lexiscan 0.4mg and at peak infusion EKG showed no significant change from baseline. Conclusions: 1. Normal EKG response to Lexiscan infusion 2. Nuclear imaging to be reported separately.
--- NOTE | 2020-05-30 15:45 | NM ---
EXAMINATION TYPE: NM stress lexiscan cardiolite DATE OF EXAM: 05/30/2020 COMPARISON: NONE HISTORY: Dyspnea, R06.09 TECHNIQUE: After the intravenous administration of 9.4 mCi Tc 99m Sestamibi - Cardiolite resting SPE CT images acquired 45 minutes post injection. The patient received 0.4mg Lexiscan, 24.8 mCi Tc 99m Sestamibi - Stress images obtained [address] injection FINDINGS: Review of stress and rest SPECT images demonstrates decreased uptake along the cardiac apex on stress as compared to rest images towards the lateral aspect. Gated analysis shows normal wall motion with an estimated left ventricular ejection fraction of 62 %. IMPRESSION: Pharmacologically induced left ventricular myocardial ischemia A Yellow level critical message alert has been initiated for Santosh Mccord DO via the [employer] Critical Results System on 05/30/2020 3:42 PM. This message alert has been sent to Santosh davenport DO via the preferences provided by the clinician for the receipt of Radiology Critical Findings . Message ID [id number].
== END | disposition home or self-care (01) ==
LOC: RADNMMAIN 08:22
PROVIDERS: ATTEND Family Medicine
DX: I08.1 Rheumatic disorders of both mitral and tricuspid valves (principal); R06.09 Other forms of dyspnea
CPT/HCPCS: 93017; 93306; 78452; A9500

== ENCOUNTER → 2020-09-30 | Outpatient (CLI) | payer MEDICARE, OTHER ==
[2020-09-30 20:31] LABS: Gliadin AB IgA, Deaminated NEGATIVE (NEGATIVE); Gliadin AB IgA, Unit 3.7 U/mL; Gliadin AB IgG, Deaminated NEGATIVE (NEGATIVE)
== END | disposition home or self-care (01) ==
LOC: LABWHC1 12:39
PROVIDERS: ATTEND Nurse Practitioner
DX: R14.0 Abdominal distension (gaseous) (principal)
CPT/HCPCS: 36415; 83516

== ENCOUNTER 2021-02-17 18:44 | Emergency (ER) | payer MEDICARE, OTHER ==
[2021-02-17 19:11] VITALS: RESP 18
[2021-02-17] MEDS ORDERED: SODIUM CHLORIDE 0.9% 1,000 ML IV STA (20:01)
[2021-02-17] MEDS ORDERED: ACETAMINOPHEN TAB 500 MG TAB PO STA (20:01)
[2021-02-17 20:57] LABS: Basophils % (A) 1 %; Eosinophils # (A) 0.1 k/uL (0-0.7); Eosinophils % (A) 1 %; HCT 41.1 % (34.0-46.0); HGB 14.4 gm/dL (11.4-16.0); Lymphocytes # (A) 0.6 k/uL (1.0-4.8); Lymphocytes % (A) 10 %; MCH 30.3 pg (25.0-35.0); MCV 86.4 fL (80.0-100.0); Mean Platelet Volume 7.3; Monocytes # (A) 0.2 k/uL (0-1.0); Monocytes % (A) 3 %; Neutrophils # (A) 5.7 k/uL (1.3-7.7); Neutrophils % (A) 86 %; Platelet Count 203 k/uL (150-450); RBC 4.75 m/uL (3.80-5.40); RDW 12.5 % (11.5-15.5); WBC 6.6 k/uL (3.8-10.6)
[2021-02-17 21:00] LABS: Appearance,Urine Cloudy (Clear); Bacteria,Urine Rare /hpf; Bilirubin,Urine Negative (Negative); Blood,Urine Large (Negative); Color,Urine Yellow; Glucose,Urine (UA) Negative (Negative); Ketones,Urine Negative (Negative); Leukocyte Esterase,Urine Large (Negative); Mucus,Urine Occasional /hpf; Nitrite,Urine Positive (Negative); PH, Urine 5.5 (5.0-8.0); Protein,Urine Trace (Negative); RBC,Urine >182 /hpf (0-5); Squamous Epithelial Cell,Urine 2 /hpf (0-4); Urobilinogen,Urine <2.0 mg/dL (<2.0); WBC,Urine 50 /hpf (0-5)
[2021-02-17 21:18] LABS: ALT 49 U/L (4-34); AST 46 U/L (14-36); African American GFR (CKD) >90 (>60 ml/min/1.73 sqM); Albumin 4.3 g/dL (3.5-5.0); Alkaline Phosphatase 99 U/L (38-126); Amylase 63 U/L (30-110); Anion Gap 12 mmol/L; Blood Urea Nitrogen 12 mg/dL (7-17); Calcium 9.3 mg/dL (8.4-10.2); Carbon Dioxide 21 mmol/L (22-30); Chloride 101 mmol/L (98-107); Glucose 91 mg/dL (74-99); Lipase 112 U/L (23-300); Non-African American GFR(CKD) >90 (>60 ml/min/1.73 sqM); Potassium 4.4 mmol/L (3.5-5.1); Sodium 134 mmol/L (137-145); Total Bilirubin 1.4 mg/dL (0.2-1.3); Total Protein 6.9 g/dL (6.3-8.2)
[2021-02-17] MEDS ORDERED: cefTRIAXone IN SWFI 1,000 MG/10 ML SYRINGE IVP STA (21:25)
[2021-02-17] MEDS ORDERED: ONDANSETRON 4 MG/2 ML VIAL IVP STA (21:47)
--- NOTE | 2021-02-17 22:11 | CT ---
EXAMINATION TYPE: CT abdomen pelvis w con DATE OF EXAM: 02/17/2021 COMPARISON: 09/24/2019. HISTORY: Post cysto/bladder distention fever. Hx Lupus, IC. CT DLP: 1309.6 mGycm Automated exposure control for dose reduction was used. TECHNIQUE: Helical acquisition of images was performed from the lung bases through the pelvis. CONTRAST: Performed without Oral Contrast and with IV Contrast, patient injected with 100 mL of Isovue 300. FINDINGS: LUNG BASES: No significant abnormality is appreciated. LIVER/GB: No acute abnormality is appreciated. Diffuse hepatic steatosis. PANCREAS: No significant abnormality is seen. SPLEEN: No significant abnormality is seen. ADRENALS: No significant abnormality is seen. KIDNEYS: No significant abnormality is seen. FREE AIR: No free air is visualized. RETROPERITONEAL ADENOPATHY: None visualized REPRODUCTIVE ORGANS: No significant abnormality is seen URINARY BLADDER: No significant abnormality is seen. PELVIC ADENOPATHY: None visualized. OSSEOUS STRUCTURES: No significant abnormality is seen. BOWEL: No significant abnormality is seen. OTHER: Partially imaged left abdominal/pelvic catheter. IMPRESSION: NO ACUTE ABNORMALITY. PRESUMED LEFT SHUNT CATHETER. HEPATIC STEATOSIS.
--- NOTE | 2021-02-17 23:01 | ED ---
Fever HPI - General Chief Complaint: Fever Stated Complaint: post op fever Time Seen by Provider: 02/17/21 19:41 Source: patient, RN notes reviewed Mode of arrival: ambulatory Limitations: no limitations - History of Present Illness Initial Comments: Patient is a 41-year-old female that presents to the emergency department complaining of fever with abdominal pain in the right lower quadrant. Patient notes that she recently underwent a cystoscopy approximately a week ago. She notes that she gets these about once a year to help with interstitial cystitis. She noted that this the first time she's felt like this with a fever. She notes that she call her primary care in a noted that if her fever got above 101.0 to come to the emergency department. She noted that her head on temperature was 102.0. She denied any other issues or complaints at this time. She was mildly nauseous while sitting up in bed during the exam interview. She was otherwise a well-appearing 41-year-old female in mild discomfort. She denied any chest pain shortness of breath headache diarrhea constipation fever fatigue chills. - Related Data Home Medications Medication Instructions Recorded Confirmed Diphenoxylate HCl/Atropine 1 tab PO QID PRN 11/18/15 02/17/21 [Lomotil] Montelukast Sodium [Singulair] 10 mg PO HS 08/13/18 02/17/21 Ondansetron Odt [Zofran ODT] 8 mg PO TID PRN 08/13/18 02/17/21 Oxybutynin Chloride [Oxybutynin 15 mg PO HS 08/13/18 02/17/21 Chloride ER] Pentosan Polysulfate Sodium 100 mg PO TID 08/13/18 02/17/21 [Elmiron] oxyCODONE-APAP 10-325MG [Percocet 1 tab PO 5XD PRN 08/13/18 02/17/21 10-325 mg] clonazePAM [KlonoPIN] 1 mg PO HS 08/17/19 02/17/21 diphenhydrAMINE [Benadryl] 25 mg PO HS 08/17/19 02/17/21 tiZANidine [Zanaflex] 4 mg PO Q8HR PRN 08/17/19 02/17/21 Albuterol Sulfate [Albuterol 2 puff PO RT-Q4H PRN 02/17/21 02/17/21 Sulfate Hfa] Amitriptyline HCl [Elavil] 50 mg PO HS 02/17/21 02/17/21 Aspirin EC [Ecotrin Low Dose] 81 mg PO DAILY 02/17/21 02/17/21 Dicyclomine [Bentyl] 10 mg PO QID PRN 02/17/21 02/17/21 Erenumab-Aooe [Aimovig 70 mg SQ QMONTHLY 02/17/21 02/17/21 Autoinjector] Famotidine [Pepcid] 20 mg PO BID 02/17/21 02/17/21 Fluticasone Nasal Tracy [Flonase 1 spray EA NOSTRIL DAILY PRN 02/17/21 02/17/21 Nasal Tracy] Levocetirizine Dihydrochloride 5 mg PO DAILY 02/17/21 02/17/21 [Xyzal] Nortriptyline HCl [Pamelor] 25 mg PO HS 02/17/21 02/17/21 Omeprazole 20 mg PO HS 02/17/21 02/17/21 Rimegepant Sulfate [Nurtec Odt] 75 mg PO DAILY PRN 02/17/21 02/17/21 Previous Rx's Medication Instructions Recorded Ciprofloxacin HCl [Cipro] 500 mg PO Q12HR #20 tablet 02/17/21 Allergies Allergy/AdvReac Type Severity Reaction Status Date / Time ibuprofen [From Motrin] Allergy Unknown Verified 05/19/20 23:38 metoclopramide HCl Allergy Rapid Verified 05/19/20 23:38 [From Reglan] Heart Rate prochlorperazine Allergy Hallucinati Verified 05/19/20 23:38 [From Compazine] ons Review of Systems ROS Statement: Those systems with pertinent positive or pertinent negative responses have been documented in the HPI. ROS Other: All systems not noted in ROS Statement are negative. Past Medical History Past Medical History: Asthma Additional Past Medical History / Comment(s): chiari malformation, migraines, uti, uterine mass, infected wisdom tooth. IBS, lupus, interstitial cystitis. POLYNEPHRITIS. History of Any Multi-Drug Resistant Organisms: None Reported Past Surgical History: Tonsillectomy, Tubal Ligation Additional Past Surgical History / Comment(s): chiari decompression, shunt to brain brain surgery x5. bladder suspenion feb 1, hysterectomy. Past Anesthesia/Blood Transfusion Reactions: No Reported Reaction Past Psychological History: ADD/ADHD Smoking Status: Never smoker Past Alcohol Use History: None Reported Past Drug Use History: None Reported - Past Family History Mother Family Medical History: No Reported History Father Family Medical History: Unable to Obtain General Exam Limitations: no limitations General appearance: alert, in no apparent distress Head exam: Present: atraumatic, normocephalic, normal inspection Eye exam: Present: normal appearance, PERRL, EOMI. Absent: scleral icterus, conjunctival injection, periorbital swelling Neck exam: Present: normal inspection Respiratory exam: Present: normal lung sounds bilaterally. Absent: respiratory distress, wheezes, rales, rhonchi, stridor Cardiovascular Exam: Present: regular rate, normal rhythm, normal heart sounds. Absent: systolic murmur, diastolic murmur, rubs, gallop, clicks GI/Abdominal exam: Present: soft, normal bowel sounds. Absent: distended, tenderness, guarding, rebound, rigid Extremities exam: Present: normal inspection, full ROM, normal capillary refill. Absent: tenderness, pedal edema, joint swelling, calf tenderness Neurological exam: Present: alert, oriented X3 Psychiatric exam: Present: normal affect, normal mood Skin exam: Present: warm, dry, intact, normal color. Absent: rash Course Vital Signs 02/17/21 02/17/21 19:05 21:50 Temperature 100.0 F H 100.0 F H Pulse Rate 138 H 102 H Respiratory 18 18 Rate Blood Pressure 128/88 110/76 O2 Sat by Pulse 97 96 Oximetry Medical Decision Making - Medical Decision Making 41-year-old female complaining of right lower quadrant pain, fever status post one week from cystoscopy. Labs, 1 L normal saline, 4 mg Zofran, CT of the abdomen and pelvis, 1000 mg of Tylenol ordered. Labs unremarkable. Urinalysis: Large amounts of blood, positive nitrites, greater than 182 red blood cells, [address] white [address] negative for any acute process. 1 g Rocephin given for urinary tract infection. Upon reevaluation patient states that she is feeling better and wants to go home at this time. She was informed that she'll be sent antibiotics to her pharmacy. Case discussed with Dr. Coelho, patient discharge home with follow-up to [facility]. - Lab Data Result diagrams: 02/17/21 20:14 02/17/21 20:14 Lab Results 02/17/21 02/17/21 02/17/21 Range/Units 20:14 20:14 20:14 WBC 6.6 (3.8-10.6) k/uL RBC 4.75 (3.80-5.40) m/uL Hgb 14.4 (11.4-16.0) gm/dL Hct 41.1 (34.0-46.0) % MCV 86.4 (80.0-100.0) fL MCH 30.3 (25.0-35.0) pg MCHC 35.0 (31.0-37.0) g/dL RDW 12.5 (11.5-15.5) % Plt Count 203 (150-450) k/uL MPV 7.3 Neutrophils % 86 % Lymphocytes % 10 % Monocytes % 3 % Eosinophils % 1 % Basophils % 1 % Neutrophils # 5.7 (1.3-7.7) k/uL Lymphocytes # 0.6 L (1.0-4.8) k/uL Monocytes # 0.2 (0-1.0) k/uL Eosinophils # 0.1 (0-0.7) k/uL Basophils # 0.0 (0-0.2) k/uL Sodium 134 L (137-145) mmol/L Potassium 4.4 (3.5-5.1) mmol/L Chloride 101 (98-107) mmol/L Carbon Dioxide 21 L (22-30) mmol/L Anion Gap 12 mmol/L BUN 12 (7-17) mg/dL Creatinine 0.81 (0.52-1.04) mg/dL Est GFR (CKD-EPI)AfAm >90 (>60 ml/min/1.73 sqM) Est GFR (CKD-EPI)NonAf >90 (>60 ml/min/1.73 sqM) Glucose 91 (74-99) mg/dL Plasma Lactic Acid Paulino (0.7-2.0) mmol/L Calcium 9.3 (8.4-10.2) mg/dL Total Bilirubin 1.4 H (0.2-1.3) mg/dL AST 46 H (14-36) U/L ALT 49 H (4-34) U/L Alkaline Phosphatase 99 (38-126) U/L Total Protein 6.9 (6.3-8.2) g/dL Albumin 4.3 (3.5-5.0) g/dL Amylase 63 (30-110) U/L Lipase 112 (23-300) U/L Urine Color Yellow Urine Appearance Cloudy H (Clear) Urine pH 5.5 (5.0-8.0) Ur Specific [place] 1.020 (1.001-1.035) Urine Protein Trace H (Negative) Urine Glucose (UA) Negative (Negative) Urine Ketones Negative (Negative) Urine Blood Large H (Negative) Urine Nitrite Positive H (Negative) Urine Bilirubin Negative (Negative) Urine Urobilinogen <2.0 (<2.0) mg/dL Ur Leukocyte Esterase Large H (Negative) Urine RBC >182 H (0-5) /hpf Urine WBC 50 H (0-5) /hpf Ur Squamous Epith Cells 2 (0-4) /hpf Urine Bacteria Rare H (None) /hpf Urine Mucus Occasional H (None) /hpf 02/17/21 Range/Units 20:14 WBC (3.8-10.6) k/uL RBC (3.80-5.40) m/uL Hgb (11.4-16.0) gm/dL Hct (34.0-46.0) % MCV (80.0-100.0) fL MCH (25.0-35.0) pg MCHC (31.0-37.0) g/dL RDW (11.5-15.5) % Plt Count (150-450) k/uL MPV Neutrophils % % Lymphocytes % % Monocytes % % Eosinophils % % Basophils % % Neutrophils # (1.3-7.7) k/uL Lymphocytes # (1.0-4.8) k/uL Monocytes # (0-1.0) k/uL Eosinophils # (0-0.7) k/uL Basophils # (0-0.2) k/uL Sodium (137-145) mmol/L Potassium (3.5-5.1) mmol/L Chloride (98-107) mmol/L Carbon Dioxide (22-30) mmol/L Anion Gap mmol/L BUN (7-17) mg/dL Creatinine (0.52-1.04) mg/dL Est GFR (CKD-EPI)AfAm (>60 ml/min/1.73 sqM) Est GFR (CKD-EPI)NonAf (>60 ml/min/1.73 sqM) Glucose (74-99) mg/dL Plasma Lactic Acid Paulino 1.1 (0.7-2.0) mmol/L Calcium (8.4-10.2) mg/dL Total Bilirubin (0.2-1.3) mg/dL AST (14-36) U/L ALT (4-34) U/L Alkaline Phosphatase (38-126) U/L Total Protein (6.3-8.2) g/dL Albumin (3.5-5.0) g/dL Amylase (30-110) U/L Lipase (23-300) U/L Urine Color Urine Appearance (Clear) Urine pH (5.0-8.0) Ur Specific [place] (1.001-1.035) Urine Protein (Negative) Urine Glucose (UA) (Negative) Urine Ketones (Negative) Urine Blood (Negative) Urine Nitrite (Negative) Urine Bilirubin (Negative) Urine Urobilinogen (<2.0) mg/dL Ur Leukocyte Esterase (Negative) Urine RBC (0-5) /hpf Urine WBC (0-5) /hpf Ur Squamous Epith Cells (0-4) /hpf Urine Bacteria (None) /hpf Urine Mucus (None) /hpf - Radiology Data Radiology results: report reviewed, image reviewed CT the abdomen and pelvis: No acute abnormality. Presumed left shunt catheter. Hepatic steatosis. Disposition Clinical Impression: Urinary tract infection, Fever Disposition: HOME SELF-CARE Condition: Stable Instructions (If sedation given, give patient instructions): Fever in Adults (ED) Additional Instructions: Please return to the Emergency Department if symptoms worsen or any other concerns. Follow-up with primary care in the next 1-2 days. Take antibiotics as prescribed until complete. Take Tylenol every 4 hours for fever and aches pain control. Prescriptions: Ciprofloxacin HCl [Cipro] 500 mg PO Q12HR #20 tablet Is patient prescribed a controlled substance at d/c from ED?: No Referrals: Santosh Mccord DO [Primary Care Provider] - 1-2 days Time of Disposition: 23:11
[2021-02-17 23:12] VITALS: BP 121/77; PULSE 100; TEMP 99
== END 2021-02-17 23:23 | disposition home or self-care (01) ==
LOC: EC 18:44
DX: N39.0 Urinary tract infection, site not specified (principal); R50.9 Fever, unspecified; J45.909 Unspecified asthma, uncomplicated; F90.9 Attention-deficit hyperactivity disorder, unspecified type; Z79.82 Long term (current) use of aspirin; Z88.6 Allergy status to analgesic agent; Z90.89 Acquired absence of other organs; Z98.51 Tubal ligation status; Z90.710 Acquired absence of both cervix and uterus
CPT/HCPCS: 99284; 96374; 96375; 96361; 36415; 80053; 82150; 83605; 83690; 85025; 81001; 87086; 74177; J2405; J0696; Q9967

== ENCOUNTER 2021-08-04 10:21 | Emergency (ER) | payer MEDICARE, OTHER ==
[2021-08-04 12:38] LABS: Appearance,Urine Cloudy (Clear); Bacteria,Urine Occasional /hpf; Bilirubin,Urine 1+ (Negative); Blood,Urine Negative (Negative); Color,Urine Dark Orange; Glucose,Urine (UA) Negative (Negative); Ketones,Urine Negative (Negative); Leukocyte Esterase,Urine Trace (Negative); Mucus,Urine Rare /hpf; Nitrite,Urine Positive (Negative); Protein,Urine Trace (Negative); RBC,Urine 2 /hpf (0-5); Specific Gravity,Urine 1.024 (1.001-1.035); Squamous Epithelial Cell,Urine 18 /hpf (0-4); WBC,Urine 13 /hpf (0-5)
[2021-08-04] MEDS ORDERED: SODIUM CHLORIDE 0.9% 1,000 ML IV STA (13:04)
[2021-08-04] MEDS ORDERED: MORPHINE SULFATE 4 MG/ML SYRINGE IV STA (13:04)
[2021-08-04] MEDS ORDERED: ONDANSETRON 4 MG/2 ML VIAL IVP STA (13:04)
--- NOTE | 2021-08-04 13:13 | ED ---
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 Patient states 3 days ago she noticed the right side of her back beginning to her and is now stating that her back is beginning her as well. Patient states her urine is darker and has urinary hesitancy and burning. Patient states she also has been nauseous, had a fever and slight abdominal discomfort 2 days. Patient states she did take Motrin earlier today. Patient states her pain is 7 out of 10 and describes as aching. Patient denies any history of kidney stones. Patient denies any urinary or bowel incontinence/retention, chest pain, shortness of breath, vomiting, headache, change in vision, dizziness, blood in urine. - Related Data Home Medications Medication Instructions Recorded Confirmed Montelukast Sodium [Singulair] 10 mg PO HS 08/13/18 08/04/21 Ondansetron Odt [Zofran ODT] 8 mg PO TID PRN 08/13/18 08/04/21 Oxybutynin Chloride [Oxybutynin 15 mg PO HS 08/13/18 08/04/21 Chloride ER] oxyCODONE-APAP 10-325MG [Percocet 1 tab PO 5XD PRN 08/13/18 08/04/21 10-325 mg] clonazePAM [KlonoPIN] 1 mg PO HS 08/17/19 08/04/21 tiZANidine [Zanaflex] 4 mg PO HS 08/17/19 08/04/21 Albuterol Sulfate [Albuterol 2 puff INHALATION RT-Q4H PRN 02/17/21 08/04/21 Sulfate Hfa] Amitriptyline HCl [Elavil] 50 mg PO HS 02/17/21 08/04/21 Dicyclomine [Bentyl] 10 mg PO HS 02/17/21 08/04/21 Famotidine [Pepcid] 20 mg PO HS 02/17/21 08/04/21 Levocetirizine Dihydrochloride 5 mg PO HS 02/17/21 08/04/21 [Xyzal] Nortriptyline HCl [Pamelor] 25 mg PO HS 02/17/21 08/04/21 Omeprazole 20 mg PO HS 02/17/21 08/04/21 Rimegepant Sulfate [Nurtec Odt] 75 mg PO DAILY PRN 02/17/21 08/04/21 Albuterol Nebulized [Ventolin 2.5 mg INHALATION RT-QID PRN 08/04/21 08/04/21 Nebulized] Erenumab-Aooe [Aimovig 140 mg SQ Q30D 08/04/21 08/04/21 Autoinjector] Previous Rx's Medication Instructions Recorded Cephalexin [Keflex] 500 mg PO Q6HR #56 cap 08/04/21 Allergies Allergy/AdvReac Type Severity Reaction Status Date / Time ibuprofen [From Motrin] AdvReac Kidney Verified 08/04/21 14:26 Failure metoclopramide HCl AdvReac Hallucinati Verified 08/04/21 14:26 [From Reglan] ons NSAIDS (Non-Steroidal AdvReac Kidney Verified 08/04/21 14:26 Anti-Inflamma Failure pregabalin [From Lyrica] AdvReac Cough Verified 08/04/21 14:26 prochlorperazine AdvReac Hallucinati Verified 08/04/21 14:26 [From Compazine] ons Review of Systems ROS Statement: Those systems with pertinent positive or pertinent negative responses have been documented in the HPI. ROS Other: All systems not noted in ROS Statement are negative. Past Medical History Past Medical History: Asthma Additional Past Medical History / Comment(s): chiari malformation, migraines, uti, uterine mass, infected wisdom tooth. IBS, lupus, interstitial cystitis. POLYNEPHRITIS. History of Any Multi-Drug Resistant Organisms: None Reported Past Surgical History: Tonsillectomy, Tubal Ligation Additional Past Surgical History / Comment(s): chiari decompression, shunt to brain brain surgery x5. bladder suspenion aug 11, hysterectomy. Past Anesthesia/Blood Transfusion Reactions: No Reported Reaction Past Psychological History: ADD/ADHD Smoking Status: Never smoker Past Alcohol Use History: None Reported Past Drug Use History: None Reported - Past Family History Mother Family Medical History: No Reported History Father Family Medical History: Unable to Obtain General Exam Limitations: no limitations General appearance: alert, in no apparent distress Head exam: Present: atraumatic, normocephalic Eye exam: Present: normal appearance, EOMI ENT exam: Present: normal exam, mucous membranes moist Neck exam: Present: normal inspection. Absent: tenderness, meningismus, lymphadenopathy Respiratory exam: Present: normal lung sounds bilaterally. Absent: respiratory distress, wheezes, rales, rhonchi, stridor Cardiovascular Exam: Present: regular rate, normal rhythm, normal heart sounds. Absent: systolic murmur, diastolic murmur, rubs, gallop, clicks GI/Abdominal exam: Present: soft, tenderness (Diffuse tenderness to palpation in both lower quadrants), normal bowel sounds. Absent: distended, guarding, rebound, rigid Extremities exam: Present: normal inspection, full ROM, normal capillary refill. Absent: tenderness, pedal edema, joint swelling, calf tenderness Back exam: Present: normal inspection (3 small blisters from "a heating pad after I fell sleep"), full ROM, CVA tenderness (R). Absent: tenderness, CVA tenderness (L), paraspinal tenderness, vertebral tenderness Neurological exam: Present: alert, oriented X3, CN II-XII intact Psychiatric exam: Present: normal affect, normal mood Skin exam: Present: warm, dry, intact, normal color. Absent: rash Course Vital Signs 08/04/21 08/04/21 10:52 14:47 Temperature 98.3 F 98.0 F Pulse Rate 107 H 82 Respiratory 20 18 Rate Blood Pressure 133/79 132/87 O2 Sat by Pulse 96 97 Oximetry - Reevaluation(s) Reevaluation #1: 08/04/21 15:00 Patient states she feels much better after receiving pain medication and fluids. She states her back pain has significantly improved Medical Decision Making - Medical Decision Making This were to feel presents the emergency department with right flank pain, urinary hesitancy, fever 3 days. Labs all unremarkable. Urine with positive nitrites, white blood cells of 13, red blood cells 2, urine squamous epithelial cells 18. CT abdomen and pelvis impression: No acute process seen to account for the patient's symptoms. No evidence for renal mass, no nephrolithiasis, no hydronephrosis. Patient had right sided CVA tenderness. Diagnosed patient with likely pyelonephritis and follow-up with primary care provider urology and next 24-48 hours. Keflex 14 days prescribed patient. Return precautions were discussed. Patient verbally agree to plan. Patient sent home in stable condition. Discussed case my attending, . - Lab Data Result diagrams: 08/04/21 13:27 08/04/21 13:27 Lab Results 08/04/21 08/04/21 08/04/21 Range/Units 11:05 13:27 13:27 WBC 7.2 (3.8-10.6) k/uL RBC 4.59 (3.80-5.40) m/uL Hgb 13.6 (11.4-16.0) gm/dL Hct 40.3 (34.0-46.0) % MCV 87.8 (80.0-100.0) fL MCH 29.7 (25.0-35.0) pg MCHC 33.8 (31.0-37.0) g/dL RDW 13.8 (11.5-15.5) % Plt Count 244 (150-450) k/uL MPV 7.5 Neutrophils % 67 % Lymphocytes % 23 % Monocytes % 5 % Eosinophils % 3 % Basophils % 1 % Neutrophils # 4.8 (1.3-7.7) k/uL Lymphocytes # 1.6 (1.0-4.8) k/uL Monocytes # 0.4 (0-1.0) k/uL Eosinophils # 0.2 (0-0.7) k/uL Basophils # 0.1 (0-0.2) k/uL PT (9.0-12.0) sec INR (<1.2) APTT (22.0-30.0) sec Sodium 137 (137-145) mmol/L Potassium 4.2 (3.5-5.1) mmol/L Chloride 107 (98-107) mmol/L Carbon Dioxide 24 (22-30) mmol/L Anion Gap 6 mmol/L BUN 13 (7-17) mg/dL Creatinine 0.86 (0.52-1.04) mg/dL Est GFR (CKD-EPI)AfAm >90 (>60 ml/min/1.73 sqM) Est GFR (CKD-EPI)NonAf 85 (>60 ml/min/1.73 sqM) Glucose 90 (74-99) mg/dL Plasma Lactic Acid Paulino (0.7-2.0) mmol/L Calcium 8.8 (8.4-10.2) mg/dL Total Bilirubin 1.0 (0.2-1.3) mg/dL AST 68 H (14-36) U/L ALT 57 H (4-34) U/L Alkaline Phosphatase 85 (38-126) U/L Total Protein 6.9 (6.3-8.2) g/dL Albumin 3.9 (3.5-5.0) g/dL Lipase 95 (23-300) U/L Urine Color Dark [place] Urine Appearance Cloudy H (Clear) Urine pH 6.0 (5.0-8.0) Ur Specific [place] 1.024 (1.001-1.035) Urine Protein Trace H (Negative) Urine Glucose (UA) Negative (Negative) Urine Ketones Negative (Negative) Urine Blood Negative (Negative) Urine Nitrite Positive H (Negative) Urine Bilirubin 1+ H (Negative) Urine Urobilinogen 2.0 (<2.0) mg/dL Ur Leukocyte Esterase Trace H (Negative) Urine RBC 2 (0-5) /hpf Urine WBC 13 H (0-5) /hpf Ur Squamous Epith Cells 18 H (0-4) /hpf Urine Bacteria Occasional H (None) /hpf Urine Mucus Rare H (None) /hpf 08/04/21 08/04/21 Range/Units 13:27 13:27 WBC (3.8-10.6) k/uL RBC (3.80-5.40) m/uL Hgb (11.4-16.0) gm/dL Hct (34.0-46.0) % MCV (80.0-100.0) fL MCH (25.0-35.0) pg MCHC (31.0-37.0) g/dL RDW (11.5-15.5) % Plt Count (150-450) k/uL MPV Neutrophils % % Lymphocytes % % Monocytes % % Eosinophils % % Basophils % % Neutrophils # (1.3-7.7) k/uL Lymphocytes # (1.0-4.8) k/uL Monocytes # (0-1.0) k/uL Eosinophils # (0-0.7) k/uL Basophils # (0-0.2) k/uL PT 10.1 (9.0-12.0) sec INR 0.9 (<1.2) APTT 22.2 (22.0-30.0) sec Sodium (137-145) mmol/L Potassium (3.5-5.1) mmol/L Chloride (98-107) mmol/L Carbon Dioxide (22-30) mmol/L Anion Gap mmol/L BUN (7-17) mg/dL Creatinine (0.52-1.04) mg/dL Est GFR (CKD-EPI)AfAm (>60 ml/min/1.73 sqM) Est GFR (CKD-EPI)NonAf (>60 ml/min/1.73 sqM) Glucose (74-99) mg/dL Plasma Lactic Acid Paulino 1.7 (0.7-2.0) mmol/L Calcium (8.4-10.2) mg/dL Total Bilirubin (0.2-1.3) mg/dL AST (14-36) U/L ALT (4-34) U/L Alkaline Phosphatase (38-126) U/L Total Protein (6.3-8.2) g/dL Albumin (3.5-5.0) g/dL Lipase (23-300) U/L Urine Color Urine Appearance (Clear) Urine pH (5.0-8.0) Ur Specific [place] (1.001-1.035) Urine Protein (Negative) Urine Glucose (UA) (Negative) Urine Ketones (Negative) Urine Blood (Negative) Urine Nitrite (Negative) Urine Bilirubin (Negative) Urine Urobilinogen (<2.0) mg/dL Ur Leukocyte Esterase (Negative) Urine RBC (0-5) /hpf Urine WBC (0-5) /hpf Ur Squamous Epith Cells (0-4) /hpf Urine Bacteria (None) /hpf Urine Mucus (None) /hpf Disposition Clinical Impression: Pyelonephritis Disposition: HOME SELF-CARE Condition: Stable Instructions (If sedation given, give patient instructions): Urinary Tract Infection in Women (ED) Additional Instructions: Please return to the emergency department with any concerning, new, or worsening symptoms. Please up with primary care provider or urologist next 24-48 hours. Take medication as directed. Prescriptions: Cephalexin [Keflex] 500 mg PO Q6HR #56 cap Is patient prescribed a controlled substance at d/c from ED?: No Referrals: Santosh Mccord DO [Primary Care Provider] - 1-2 days Time of Disposition: 15:23
[2021-08-04 13:49] LABS: Basophils # (A) 0.1 k/uL (0-0.2); Basophils % (A) 1 %; Eosinophils # (A) 0.2 k/uL (0-0.7); Eosinophils % (A) 3 %; HCT 40.3 % (34.0-46.0); HGB 13.6 gm/dL (11.4-16.0); Lymphocytes # (A) 1.6 k/uL (1.0-4.8); Lymphocytes % (A) 23 %; MCH 29.7 pg (25.0-35.0); MCHC 33.8 g/dL (31.0-37.0); MCV 87.8 fL (80.0-100.0); Mean Platelet Volume 7.5; Monocytes # (A) 0.4 k/uL (0-1.0); Monocytes % (A) 5 %; Neutrophils # (A) 4.8 k/uL (1.3-7.7); Neutrophils % (A) 67 %; Platelet Count 244 k/uL (150-450); RBC 4.59 m/uL (3.80-5.40); RDW 13.8 % (11.5-15.5); WBC 7.2 k/uL (3.8-10.6)
[2021-08-04 13:55] LABS: INR 0.9 (<1.2); Partial Thromboplastin Time 22.2 sec (22.0-30.0); Prothrombin Time 10.1 sec (9.0-12.0)
--- NOTE | 2021-08-04 13:55 | CT ---
EXAMINATION TYPE: CT abdomen pelvis wo con DATE OF EXAM: 08/04/2021 COMPARISON: 02/17/2021 HISTORY: Right sided flank/side pain CT DLP: 840.5 mGycm Examination of the solid and hollow viscera is limited given the lack of contrast. FINDINGS: LUNG BASES: No evidence for nodule. No evidence for infiltrate. LIVER/GB: The gallbladder is unremarkable. No space-occupying hepatic lesion. PANCREAS: No pancreatic mass identified. No inflammatory process seen. SPLEEN: No evidence for splenomegaly. No intrasplenic lesions seen. ADRENALS: No adrenal nodules identified. No evidence for thickening. KIDNEYS: No evidence for renal mass. No nephrolithiasis. No hydronephrosis. BOWEL: Appendix has a normal appearance. No evidence of bowel obstruction. No inflammatory process. Lymph nodes: No evidence for adenopathy greater than 1 cm. Abdominal aorta: Atheromatous changes seen. No evidence for aneurysm. Genital organs: No significant abnormality. Other: Ventriculoperitoneal shunt noted. IMPRESSION: NO ACUTE PROCESS SEEN TO ACCOUNT FOR THE PATIENT'S SYMPTOMS.
[2021-08-04 14:02] LABS: ALT 57 U/L (4-34); AST 68 U/L (14-36); African American GFR (CKD) >90 (>60 ml/min/1.73 sqM); Albumin 3.9 g/dL (3.5-5.0); Alkaline Phosphatase 85 U/L (38-126); Anion Gap 6 mmol/L; Blood Urea Nitrogen 13 mg/dL (7-17); Calcium 8.8 mg/dL (8.4-10.2); Carbon Dioxide 24 mmol/L (22-30); Chloride 107 mmol/L (98-107); Glucose 90 mg/dL (74-99); Lipase 95 U/L (23-300); Non-African American GFR(CKD) 85 (>60 ml/min/1.73 sqM); Potassium 4.2 mmol/L (3.5-5.1); Sodium 137 mmol/L (137-145); Total Protein 6.9 g/dL (6.3-8.2)
[2021-08-04] MEDS ORDERED: cefTRIAXone IN SWFI 1,000 MG/10 ML SYRINGE IVP STA (14:47)
[2021-08-04 14:48] VITALS: BP 132/87; RESP 18
[2021-08-04 14:50] VITALS: TEMP 98
[2021-08-04 15:44] VITALS: PULSE 71
== END 2021-08-04 15:44 | disposition home or self-care (01) ==
LOC: EC 10:21
DX: N12 Tubulo-interstitial nephritis, not specified as acute or chronic (principal); J45.909 Unspecified asthma, uncomplicated; F90.9 Attention-deficit hyperactivity disorder, unspecified type; Z79.51 Long term (current) use of inhaled steroids; Z79.899 Other long term (current) drug therapy
CPT/HCPCS: 36415; 80053; 83605; 83690; 85025; 85610; 85730; 81001; 87040; 87086; 74176; 99284; 96374; 96375 ×2; 96361; J2270; J2405; J0696

== ENCOUNTER 2022-03-26 20:49 | Emergency (ER) | payer MEDICARE, OTHER ==
[2022-03-26 21:21] VITALS: BP 103/74; PULSE 110; RESP 20; TEMP 98.1
[2022-03-26] MEDS ORDERED: ASPIRIN 81 MG PO STA (22:11)
[2022-03-26] MEDS ORDERED: SODIUM CHLORIDE 0.9% 1,000 ML IV STA (22:11)
[2022-03-26] MEDS ORDERED: ONDANSETRON 4 MG/2 ML VIAL IVP STA (22:11)
--- NOTE | 2022-03-26 22:11 | ED ---
General Adult HPI - General Chief complaint: Chest Pain Stated complaint: Chest pain Time Seen by Provider: 03/26/22 21:40 Source: patient, RN notes reviewed Mode of arrival: ambulatory Limitations: no limitations - History of Present Illness Initial comments: 42-year-old female presents to the emergency department for evaluation of midsternal chest pressure and epigastric discomfort that radiates to the back. Patient states her chest pain has been intermittent for the past 2 weeks and was seen by her PCP who recently prescribed her nitroglycerin. Patient states she took 2 sublingual nitro today with improvement in her chest discomfort, however reports continuing to feel somewhat poorly and lacking in energy therefore came to the emergency department for evaluation. Denies fever, chills, shortness of breath, cough, congestion, vomiting, diarrhea, dysuria, hematuria, or lower extremity edema. - Related Data Home Medications Medication Instructions Recorded Confirmed Montelukast Sodium [Singulair] 10 mg PO HS 08/13/18 08/04/21 Ondansetron Odt [Zofran ODT] 8 mg PO TID PRN 08/13/18 08/04/21 Oxybutynin Chloride [Oxybutynin 15 mg PO HS 08/13/18 08/04/21 Chloride ER] oxyCODONE-APAP 10-325MG [Percocet 1 tab PO 5XD PRN 08/13/18 08/04/21 10-325 mg] clonazePAM [KlonoPIN] 1 mg PO HS 08/17/19 08/04/21 tiZANidine [Zanaflex] 4 mg PO HS 08/17/19 08/04/21 Albuterol Sulfate [Albuterol 2 puff INHALATION RT-Q4H PRN 02/17/21 08/04/21 Sulfate Hfa] Amitriptyline HCl [Elavil] 50 mg PO HS 02/17/21 08/04/21 Dicyclomine [Bentyl] 10 mg PO HS 02/17/21 08/04/21 Famotidine [Pepcid] 20 mg PO HS 02/17/21 08/04/21 Levocetirizine Dihydrochloride 5 mg PO HS 02/17/21 08/04/21 [Xyzal] Nortriptyline HCl [Pamelor] 25 mg PO HS 02/17/21 08/04/21 Omeprazole 20 mg PO HS 02/17/21 08/04/21 Rimegepant Sulfate [Nurtec Odt] 75 mg PO DAILY PRN 02/17/21 08/04/21 Albuterol Nebulized [Ventolin 2.5 mg INHALATION RT-QID PRN 08/04/21 08/04/21 Nebulized] Erenumab-Aooe [Aimovig 140 mg SQ Q30D 08/04/21 08/04/21 Autoinjector] Previous Rx's Medication Instructions Recorded Cephalexin [Keflex] 500 mg PO Q6HR #56 cap 08/04/21 Allergies Allergy/AdvReac Type Severity Reaction Status Date / Time ibuprofen [From Motrin] AdvReac Kidney Verified 03/26/22 21:21 Failure metoclopramide HCl AdvReac Hallucinati Verified 03/26/22 21:21 [From Reglan] ons NSAIDS (Non-Steroidal AdvReac Kidney Verified 03/26/22 21:21 Anti-Inflamma Failure pregabalin [From Lyrica] AdvReac Cough Verified 03/26/22 21:21 prochlorperazine AdvReac Hallucinati Verified 03/26/22 21:21 [From Compazine] ons Review of Systems ROS Statement: Those systems with pertinent positive or pertinent negative responses have been documented in the HPI. ROS Other: All systems not noted in ROS Statement are negative. Past Medical History Past Medical History: Asthma, Chest Pain / Angina Additional Past Medical History / Comment(s): chiari malformation, migraines, uti, uterine mass, infected wisdom tooth. IBS, lupus, interstitial cystitis. POLYNEPHRITIS. 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 bladder suspenion fe, hysterectomy. Past Anesthesia/Blood Transfusion Reactions: No Reported Reaction Past Psychological History: ADD/ADHD Smoking Status: Never smoker Past Alcohol Use History: None Reported Past Drug Use History: None Reported - Past Family History Mother Family Medical History: No Reported History Father Family Medical History: Unable to Obtain General Exam Limitations: no limitations (Well-developed, well-nourished female in no acute distress. Initial temperature 98.1, pulse 110, respirations 20, blood pressure 103/74, pulse ox 98% on room air.) General appearance: alert, in no apparent distress ENT exam: Present: normal oropharynx, mucous membranes moist Neck exam: Present: normal inspection, full ROM. Absent: tenderness, meningismus, lymphadenopathy Respiratory exam: Present: normal lung sounds bilaterally. Absent: respiratory distress, wheezes, rales, rhonchi, stridor Cardiovascular Exam: Present: regular rate, normal rhythm, normal heart sounds. Absent: systolic murmur, diastolic murmur, rubs, gallop, clicks GI/Abdominal exam: Present: soft, tenderness (Mild tenderness upon palpation of the right upper quadrant.), normal bowel sounds. Absent: distended, guarding, rebound, rigid Back exam: Present: normal inspection. Absent: CVA tenderness (R), CVA tenderness (L) Neurological exam: Present: alert, oriented X3, CN II-XII intact, normal gait Psychiatric exam: Present: flat affect Skin exam: Present: warm, dry, intact, normal color. Absent: rash Course Vital Signs 03/26/22 21:17 Temperature 98.1 F Pulse Rate 110 H Respiratory 20 Rate Blood Pressure 103/74 O2 Sat by Pulse 98 Oximetry - Reevaluation(s) Reevaluation #1: 03/27/22 01:00 Upon reassessment, patient is resting more comfortably with minimal pain. Vital signs improved: Heart rate 80s. Updated on findings and patient is reassured. She is scheduled to see cardiology and her PCP on Tuesday. Will be discharged home with strict return parameters. She verbalizes understanding and agrees with this plan. Medical Decision Making - Medical Decision Making This is a pleasant 42-year-old female with a past medical history of Lupus, angina, and chiari malformation requiring multiple surgeries who presents to the emergency department for evaluation of midsternal/epigastric chest pressure that extends across to the right upper abdomen and back to the left shoulder. Upon exam, patient is anxious, though well-appearing and in no acute distress. Physical exam findings are overall unremarkable. We discussed her use of sublingual nitro and its intended action. She was given 4 baby aspirin, Dilaudid and Zofran, as well as IV fluids with improvement. EKG was obtained showing normal sinus rhythm with nonspecific ST and T-wave changes. When compared to previous EKG there are no significant changes. Laboratory studies were reviewed and are unremarkable. Liver enzymes are mildly elevated which is not unusual for patient given her history of NAFLD. Troponin is negative. Ultrasound of the right upper quadrant showed no acute findings. Patient is scheduled to see cardiology on Tuesday for further evaluation and treatment. She will be discharged home with strict return parameters. Red flag symptoms were reviewed. Patient and spouse verbalized understanding and agreed with this plan. Attending: Laquita. - Lab Data Result diagrams: 03/26/22 22:30 03/26/22 22:30 Lab Results 03/26/22 03/26/22 03/26/22 Range/Units 22:30 22:30 22:30 WBC 6.6 (3.8-10.6) k/uL RBC 4.86 (3.80-5.40) m/uL Hgb 14.6 (11.4-16.0) gm/dL Hct 42.0 (34.0-46.0) % MCV 86.4 (80.0-100.0) fL MCH 29.9 (25.0-35.0) pg MCHC 34.7 (31.0-37.0) g/dL RDW 13.0 (11.5-15.5) % Plt Count 225 (150-450) k/uL MPV 7.5 Neutrophils % 56 % Lymphocytes % 34 % Monocytes % 5 % Eosinophils % 3 % Basophils % 1 % Neutrophils # 3.7 (1.3-7.7) k/uL Lymphocytes # 2.2 (1.0-4.8) k/uL Monocytes # 0.3 (0-1.0) k/uL Eosinophils # 0.2 (0-0.7) k/uL Basophils # 0.1 (0-0.2) k/uL ESR Cancelled PT 9.8 (9.0-12.0) sec INR 0.9 (<1.2) APTT 20.2 L (22.0-30.0) sec D-Dimer 0.29 (<0.60) mg/L FEU Sodium 136 L (137-145) mmol/L Potassium 4.0 (3.5-5.1) mmol/L Chloride 101 (98-107) mmol/L Carbon Dioxide 23 (22-30) mmol/L Anion Gap 12 mmol/L BUN 15 (7-17) mg/dL Creatinine 0.80 (0.52-1.04) mg/dL Est GFR (CKD-EPI)AfAm >90 (>60 ml/min/1.73 sqM) Est GFR (CKD-EPI)NonAf >90 (>60 ml/min/1.73 sqM) Glucose 111 H (74-99) mg/dL Calcium 9.4 (8.4-10.2) mg/dL Magnesium 1.8 (1.6-2.3) mg/dL Total Bilirubin 0.7 (0.2-1.3) mg/dL AST 68 H (14-36) U/L ALT 67 H (4-34) U/L Alkaline Phosphatase 101 (38-126) U/L Troponin I (0.000-0.034) ng/mL NT-Pro-B Natriuret Pep pg/mL Total Protein 6.9 (6.3-8.2) g/dL Albumin 4.4 (3.5-5.0) g/dL Amylase 71 (30-110) U/L Lipase 167 (23-300) U/L Urine Color Urine Appearance (Clear) Urine pH (5.0-8.0) Ur Specific Platinum (1.001-1.035) Urine Protein (Negative) Urine Glucose (UA) (Negative) Urine Ketones (Negative) Urine Blood (Negative) Urine Nitrite (Negative) Urine Bilirubin (Negative) Urine Urobilinogen (<2.0) mg/dL Ur Leukocyte Esterase (Negative) Urine RBC (0-5) /hpf Urine WBC (0-5) /hpf Ur Squamous Epith Cells (0-4) /hpf Urine Bacteria (None) /hpf 03/26/22 03/26/22 03/26/22 Range/Units 22:30 22:30 22:49 WBC (3.8-10.6) k/uL RBC (3.80-5.40) m/uL Hgb (11.4-16.0) gm/dL Hct (34.0-46.0) % MCV (80.0-100.0) fL MCH (25.0-35.0) pg MCHC (31.0-37.0) g/dL RDW (11.5-15.5) % Plt Count (150-450) k/uL MPV Neutrophils % % Lymphocytes % % Monocytes % % Eosinophils % % Basophils % % Neutrophils # (1.3-7.7) k/uL Lymphocytes # (1.0-4.8) k/uL Monocytes # (0-1.0) k/uL Eosinophils # (0-0.7) k/uL Basophils # (0-0.2) k/uL ESR PT (9.0-12.0) sec INR (<1.2) APTT (22.0-30.0) sec D-Dimer (<0.60) mg/L FEU Sodium (137-145) mmol/L Potassium (3.5-5.1) mmol/L Chloride (98-107) mmol/L Carbon Dioxide (22-30) mmol/L Anion Gap mmol/L BUN (7-17) mg/dL Creatinine (0.52-1.04) mg/dL Est GFR (CKD-EPI)AfAm (>60 ml/min/1.73 sqM) Est GFR (CKD-EPI)NonAf (>60 ml/min/1.73 sqM) Glucose (74-99) mg/dL Calcium (8.4-10.2) mg/dL Magnesium (1.6-2.3) mg/dL Total Bilirubin (0.2-1.3) mg/dL AST (14-36) U/L ALT (4-34) U/L Alkaline Phosphatase (38-126) U/L Troponin I <0.012 (0.000-0.034) ng/mL NT-Pro-B Natriuret Pep 13 pg/mL Total Protein (6.3-8.2) g/dL Albumin (3.5-5.0) g/dL Amylase (30-110) U/L Lipase (23-300) U/L Urine Color Light Yellow Urine Appearance Cloudy H (Clear) Urine pH 5.5 (5.0-8.0) Ur Specific Platinum 1.009 (1.001-1.035) Urine Protein Negative (Negative) Urine Glucose (UA) Negative (Negative) Urine Ketones Negative (Negative) Urine Blood Negative (Negative) Urine Nitrite Negative (Negative) Urine Bilirubin Negative (Negative) Urine Urobilinogen <2.0 (<2.0) mg/dL Ur Leukocyte Esterase Negative (Negative) Urine RBC <1 (0-5) /hpf Urine WBC 3 (0-5) /hpf Ur Squamous Epith Cells 8 H (0-4) /hpf Urine Bacteria Moderate H (None) /hpf 03/27/22 Range/Units 00:26 WBC (3.8-10.6) k/uL RBC (3.80-5.40) m/uL Hgb (11.4-16.0) gm/dL Hct (34.0-46.0) % MCV (80.0-100.0) fL MCH (25.0-35.0) pg MCHC (31.0-37.0) g/dL RDW (11.5-15.5) % Plt Count (150-450) k/uL MPV Neutrophils % % Lymphocytes % % Monocytes % % Eosinophils % % Basophils % % Neutrophils # (1.3-7.7) k/uL Lymphocytes # (1.0-4.8) k/uL Monocytes # (0-1.0) k/uL Eosinophils # (0-0.7) k/uL Basophils # (0-0.2) k/uL ESR 9 PT (9.0-12.0) sec INR (<1.2) APTT (22.0-30.0) sec D-Dimer (<0.60) mg/L FEU Sodium (137-145) mmol/L Potassium (3.5-5.1) mmol/L Chloride (98-107) mmol/L Carbon Dioxide (22-30) mmol/L Anion Gap mmol/L BUN (7-17) mg/dL Creatinine (0.52-1.04) mg/dL Est GFR (CKD-EPI)AfAm (>60 ml/min/1.73 sqM) Est GFR (CKD-EPI)NonAf (>60 ml/min/1.73 sqM) Glucose (74-99) mg/dL Calcium (8.4-10.2) mg/dL Magnesium (1.6-2.3) mg/dL Total Bilirubin (0.2-1.3) mg/dL AST (14-36) U/L ALT (4-34) U/L Alkaline Phosphatase (38-126) U/L Troponin I (0.000-0.034) ng/mL NT-Pro-B Natriuret Pep pg/mL Total Protein (6.3-8.2) g/dL Albumin (3.5-5.0) g/dL Amylase (30-110) U/L Lipase (23-300) U/L Urine Color Urine Appearance (Clear) Urine pH (5.0-8.0) Ur Specific Platinum (1.001-1.035) Urine Protein (Negative) Urine Glucose (UA) (Negative) Urine Ketones (Negative) Urine Blood (Negative) Urine Nitrite (Negative) Urine Bilirubin (Negative) Urine Urobilinogen (<2.0) mg/dL Ur Leukocyte Esterase (Negative) Urine RBC (0-5) /hpf Urine WBC (0-5) /hpf Ur Squamous Epith Cells (0-4) /hpf Urine Bacteria (None) /hpf - EKG Data EKG shows normal: sinus rhythm Rate: tachycardia EKG Comments: EKG obtained at 2131 shows sinus rhythm with inferior myocardial infarction of indeterminate age. Ventricular rate 96, MD interval 152, QRS duration 86, QT/QTC 341/395. Interpretation abnormal ECG. - Radiology Data Radiology results: report reviewed, image reviewed Ultrasound of the right upper quadrant was obtained. Report was reviewed in its entirety. Impression per Dr. Saenz is no gallstones or dilated ducts. No free fluid. Two-view chest x-ray was obtained. Report was reviewed in its entirety. Impression per Dr. Saenz is no active cardiopulmonary disease. No change. Disposition Clinical Impression: Chest pain, Abdominal pain Disposition: HOME SELF-CARE Condition: Stable Instructions (If sedation given, give patient instructions): Chest Pain (ED) Additional Instructions: Keep your scheduled appointment for Tuesday. Avoid strenuous or exertional activity this weekend. Headache and dizziness are common side effects from sublingual nitro. May take Tylenol if needed. Increase intake of fluid. Avoid caffeine/stimulants. Return to the emergency department with any new, worsening, or concerning symptoms. Is patient prescribed a controlled substance at d/c from ED?: No Referrals: Margaret Ritchie [Primary Care Provider] - 1-2 days Time of Disposition: 01:16
[2022-03-26 22:47] LABS: HGB 14.6 gm/dL (11.4-16.0); MCH 29.9 pg (25.0-35.0); MCHC 34.7 g/dL (31.0-37.0); MCV 86.4 fL (80.0-100.0); RBC 4.86 m/uL (3.80-5.40); WBC 6.6 k/uL (3.8-10.6)
[2022-03-26 22:48] LABS: Basophils # (A) 0.1 k/uL (0-0.2); Basophils % (A) 1 %; Eosinophils # (A) 0.2 k/uL (0-0.7); Eosinophils % (A) 3 %; Lymphocytes # (A) 2.2 k/uL (1.0-4.8); Lymphocytes % (A) 34 %; Mean Platelet Volume 7.5; Monocytes # (A) 0.3 k/uL (0-1.0); Monocytes % (A) 5 %; Neutrophils # (A) 3.7 k/uL (1.3-7.7); Neutrophils % (A) 56 %; Platelet Count 225 k/uL (150-450)
[2022-03-26 23:07] LABS: INR 0.9 (<1.2); Prothrombin Time 9.8 sec (9.0-12.0)
--- NOTE | 2022-03-26 23:15 | XR ---
EXAMINATION TYPE: XR chest 2V DATE OF EXAM: 03/26/2022 COMPARISON: 05/20/2020 HISTORY: Chest pain TECHNIQUE: FINDINGS: Heart and mediastinum are normal. Lungs are clear. Diaphragm is normal. There is right-side d ventricular peritoneal shunt catheter noted. There are no hilar masses. Bony thorax is intact. IMPRESSION: No active cardiopulmonary disease. No change.
[2022-03-26 23:19] LABS: ALT 67 U/L (4-34); AST 68 U/L (14-36); African American GFR (CKD) >90 (>60 ml/min/1.73 sqM); Albumin 4.4 g/dL (3.5-5.0); Alkaline Phosphatase 101 U/L (38-126); Amylase 71 U/L (30-110); Anion Gap 12 mmol/L; Blood Urea Nitrogen 15 mg/dL (7-17); Calcium 9.4 mg/dL (8.4-10.2); Carbon Dioxide 23 mmol/L (22-30); Chloride 101 mmol/L (98-107); Glucose 111 mg/dL (74-99); Lipase 167 U/L (23-300); Magnesium 1.8 mg/dL (1.6-2.3); Non-African American GFR(CKD) >90 (>60 ml/min/1.73 sqM); Sodium 136 mmol/L (137-145); Total Bilirubin 0.7 mg/dL (0.2-1.3); Total Protein 6.9 g/dL (6.3-8.2)
[2022-03-26 23:20] LABS: Appearance,Urine Cloudy (Clear); Bacteria,Urine Moderate /hpf; Bilirubin,Urine Negative (Negative); Blood,Urine Negative (Negative); Color,Urine Light Yellow; Glucose,Urine (UA) Negative (Negative); Ketones,Urine Negative (Negative); Leukocyte Esterase,Urine Negative (Negative); Nitrite,Urine Negative (Negative); PH, Urine 5.5 (5.0-8.0); Protein,Urine Negative (Negative); RBC,Urine <1 /hpf (0-5); Specific Gravity,Urine 1.009 (1.001-1.035); Squamous Epithelial Cell,Urine 8 /hpf (0-4); Urobilinogen,Urine <2.0 mg/dL (<2.0); WBC,Urine 3 /hpf (0-5)
[2022-03-26 23:24] LABS: Partial Thromboplastin Time 20.2 sec (22.0-30.0)
[2022-03-26] MEDS ORDERED: HYDROmorphone 0.5 MG/0.5 ML SYRINGE IVP STA (23:42)
--- NOTE | 2022-03-27 00:43 | US ---
EXAMINATION TYPE: US abdomen limited DATE OF EXAM: 03/27/2022 COMPARISON: CT CLINICAL HISTORY: RUQ abdominal pain. TECHNIQUE: Multiple sonographic images of the right upper quadrant are obtained. FINDINGS: EXAM MEASUREMENTS: Liver Length: 15.2 cm Gallbladder Wall: 0.2 cm CBD: 0.2 cm Right Kidney: 11.2 x 4.2 x 3.7 cm [employer] NOTES: Severe overlying bowel gas, technically difficult, limited exam. Pancreas: Obscured by bowel gas Liver: Increased attenuation, decreased visualization of vessels suggestive of fatty infiltrate Gallbladder: wnl Evidence for sonographic Casillas's sign: no CBD: wnl Right Kidney: wnl IMPRESSION: No gallstones or dilated ducts. No free fluid.
== END 2022-03-27 02:00 | disposition home or self-care (01) ==
LOC: EC 20:49
DX: R07.89 Other chest pain (principal); R10.11 Right upper quadrant pain; J45.909 Unspecified asthma, uncomplicated; R79.89 Other specified abnormal findings of blood chemistry; Z88.6 Allergy status to analgesic agent; Z88.8 Allergy status to other drugs, medicaments and biological substances; Z79.51 Long term (current) use of inhaled steroids
CPT/HCPCS: 99285; 96374; 96375; 96361; 36415 ×2; 93005; 85379; 83880; 80053; 85652; 82150; 83690; 83735; 84484; 85025; 85610; 85730; 81001; 71046; 76705; J2405; J1170

== ENCOUNTER 2022-07-16 05:45 | Emergency (ER) | payer MEDICARE, OTHER ==
[2022-07-16] MEDS ORDERED: ONDANSETRON 4 MG/2 ML VIAL IVP STA (06:37)
[2022-07-16] MEDS ORDERED: SODIUM CHLORIDE 0.9% 2,000 ML IV STA (06:37)
[2022-07-16] MEDS ORDERED: HYDROmorphone 0.5 MG/0.5 ML SYRINGE IVP STA (06:38)
--- NOTE | 2022-07-16 06:52 | ED ---
Abdominal Pain HPI - General Chief Complaint: Abdominal Pain Stated Complaint: Kidney pain Time Seen by Provider: 07/16/22 06:08 Source: patient, RN notes reviewed Mode of arrival: ambulatory Limitations: no limitations - History of Present Illness Initial Comments: 42-year-old female presents emergency Department chief complaint of right flank pain, dysuria. Patient states that she had bladder distention surgery on June [address] Price. Patient states that this is not the first time she's had surgery like this. Patient states that she's also had 2 recent carpal tunnel surgeries on her left arm. Patient states that she started having dysuri a, decreased urine output, decreased oral intake. Patient has a history of renal failure. Patient states she is concerned for this. Patient reports no reported fever but states that she's had hot and cold chills. She states that pain is not controlled with [id number] pain meds. - Related Data Home Medications Medication Instructions Recorded Confirmed Montelukast Sodium [Singulair] 10 mg PO HS 08/13/18 08/04/21 Ondansetron Odt [Zofran ODT] 8 mg PO TID PRN 08/13/18 08/04/21 Oxybutynin Chloride [Oxybutynin 15 mg PO HS 08/13/18 08/04/21 Chloride ER] oxyCODONE-APAP 10-325MG [Percocet 1 tab PO 5XD PRN 08/13/18 08/04/21 10-325 mg] clonazePAM [KlonoPIN] 1 mg PO HS 08/17/19 08/04/21 tiZANidine [Zanaflex] 4 mg PO HS 08/17/19 08/04/21 Albuterol Sulfate [Albuterol 2 puff INHALATION RT-Q4H PRN 02/17/21 08/04/21 Sulfate Hfa] Amitriptyline HCl [Elavil] 50 mg PO HS 02/17/21 08/04/21 Dicyclomine [Bentyl] 10 mg PO HS 02/17/21 08/04/21 Famotidine [Pepcid] 20 mg PO HS 02/17/21 08/04/21 Levocetirizine Dihydrochloride 5 mg PO HS 02/17/21 08/04/21 [Xyzal] Nortriptyline HCl [Pamelor] 25 mg PO HS 02/17/21 08/04/21 Omeprazole 20 mg PO HS 02/17/21 08/04/21 Rimegepant Sulfate [Nurtec Odt] 75 mg PO DAILY PRN 02/17/21 08/04/21 Albuterol Nebulized [Ventolin 2.5 mg INHALATION RT-QID PRN 08/04/21 08/04/21 Nebulized] Erenumab-Aooe [Aimovig 140 mg SQ Q30D 08/04/21 08/04/21 Autoinjector] Previous Rx's Medication Instructions Recorded Cephalexin [Keflex] 500 mg PO Q6HR #56 cap 08/04/21 Cephalexin [Keflex] 500 mg PO Q8HR #21 cap 07/16/22 Allergies Allergy/AdvReac Type Severity Reaction Status Date / Time ibuprofen [From Motrin] AdvReac Kidney Verified 03/26/22 21:21 Failure metoclopramide HCl AdvReac Hallucinati Verified 03/26/22 21:21 [From Reglan] ons NSAIDS (Non-Steroidal AdvReac Kidney Verified 03/26/22 21:21 Anti-Inflamma Failure pregabalin [From Lyrica] AdvReac Cough Verified 03/26/22 21:21 prochlorperazine AdvReac Hallucinati Verified 03/26/22 21:21 [From Compazine] ons Review of Systems ROS Statement: Those systems with pertinent positive or pertinent negative responses have been documented in the HPI. ROS Other: All systems not noted in ROS Statement are negative. Past Medical History Past Medical History: Asthma, Chest Pain / Angina Additional Past Medical History / Comment(s): chiari malformation, migraines, uti, uterine mass, infected wisdom tooth. IBS, lupus, interstitial cystitis. POLYNEPHRITIS. 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 bladder suspenion fe 1, hysterectomy. Past Anesthesia/Blood Transfusion Reactions: No Reported Reaction Past Psychological History: ADD/ADHD Smoking Status: Never smoker Past Alcohol Use History: None Reported Past Drug Use History: None Reported - Past Family History Mother Family Medical History: No Reported History Father Family Medical History: Unable to Obtain General Exam Limitations: no limitations General appearance: alert, in no apparent distress Head exam: Present: atraumatic, normocephalic, normal inspection Eye exam: Present: normal appearance, PERRL, EOMI. Absent: scleral icterus, conjunctival injection, periorbital swelling ENT exam: Present: normal exam, mucous membranes moist Neck exam: Present: normal inspection, full ROM. Absent: tenderness, meningismus, lymphadenopathy Respiratory exam: Present: normal lung sounds bilaterally. Absent: respiratory distress, wheezes, rales, rhonchi, stridor Cardiovascular Exam: Present: regular rate, normal rhythm, normal heart sounds. Absent: systolic murmur, diastolic murmur, rubs, gallop, clicks Back exam: Present: CVA tenderness (R). Absent: CVA tenderness (L) Neurological exam: Present: alert Skin exam: Present: warm, dry, intact, normal color. Absent: rash Course Vital Signs 07/16/22 07/16/22 05:49 07:59 Temperature 97.8 F 98.2 F Pulse Rate 87 Respiratory 16 Rate Blood Pressure 125/87 O2 Sat by Pulse 98 Oximetry Medical Decision Making - Medical Decision Making Was pt. sent in by a medical professional or institution (, PA, MIGRANT LEADER, urgent care, hospital, or fdc...) When possible be specific @ -No Did you speak to anyone other than the patient for history (EMS, parent, family, police, friend...)? What history was obtained from this source @ -No Did you review nursing and triage notes (agree or disagree)? Why? @ -I reviewed and agree with nursing and triage notes Were old charts reviewed (outside hosp., previous admission, EMS record, old EKG, old radiological studies, urgent care reports/EKG's, fdc records)? Report findings @ -No old charts were reviewed Differential Diagnosis (chest pain, altered mental status, abdominal pain women, abdominal pain men, vaginal bleeding, weakness, fever, dyspnea, syncope, headache, dizziness, GI bleed, back pain, seizure, CVA, palpatations, mental health)? @ -not applicable EKG interpreted by me (3pts min.). @ -As above X-rays interpreted by me (1pt min.). @ -None done CT interpreted by me (1pt min.). @ -None done U/S interpreted by me (1pt. min.). @ -Ultrasound kidneys and bladder did not show any significant findings, no evidence of hydronephrosis, no stones What testing was considered but not performed or refused? (CT, X-rays, U/S, labs)? Why? @ -None What meds were considered but not given or refused? Why? @ -None Did you discuss the management of the patient with other professionals (professionals i.e. , PA, MIGRANT LEADER, lab, RT, psych nurse, social worker health services, food safety auditor, teacher, sustainability officer, case repairer)? Give summary @ -No Was smoking cessation discussed for >3mins.? @ -No Was critical care preformed (if so, how long)? @ -No Were there social determinants of health that impacted care today? How? (H omelessness, low income, unemployed, alcoholism, drug addiction, transportation, low edu. Level, literacy, decrease access to med. care, long term, rehab)? @ -No Was there de-escalation of care discussed even if they declined (Discuss DNR or withdrawal of care, Hospice)? DNR status @ -No What co-morbidities impacted this encounter? (DM, HTN, Smoking, COPD, CAD, Cancer, CVA, ARF, Chemo, Hep., AIDS, mental health diagnosis, sleep apnea, morbid obesity)? @ -Lupus Was patient admitted / discharged? Hospital course, mention meds given and route, prescriptions, significant lab abnormalities, going to OR and other pertinent info. @ -Discharged Undiagnosed new problem with uncertain prognosis? @ -No Drug Therapy requiring intensive monitoring for toxicity (Heparin, Nitro, Insulin, Cardizem)? @ -No Were any procedures done? @ -No Diagnosis/symptom? @ -uti Acute, or Chronic, or Acute on Chronic? @ -acute Uncomplicated (without systemic symptoms) or Complicated (systemic symptoms)? @ -uncomplicated Side effects of treatment? @ -No Exacerbation, Progression, or Severe Exacerbation? @ -No Poses a threat to life or bodily function? How? (Chest pain, [place], [place], pneumonia, PE, COPD, DKA, ARF, appy, cholecystitis, CVA, Diverticulitis, Homicidal, Suicidal, threat to staff... and all critical care pts) @ -[No] Diagnosis/symptom? @ -Flank pain Acute, or Chronic, or Acute on Chronic? @ -acute Uncomplicated (without systemic symptoms) or Complicated (systemic symptoms)? @ -Uncomplicated Side effects of treatment? @ -[none] Exacerbation, Progression, or Severe Exacerbation] @ -[no] Poses a threat to life or bodily function? @ -[no]in - Lab Data Result diagrams: 07/16/22 07:30 07/16/22 07:30 Lab Results 07/16/22 07/16/22 07/16/22 Range/Units 07:30 07:30 07:30 WBC 5.8 (3.8-10.6) k/uL RBC 4.64 (3.80-5.40) m/uL Hgb 13.9 (11.4-16.0) gm/dL Hct 38.2 (34.0-46.0) % MCV 82.2 (80.0-100.0) fL MCH 29.9 (25.0-35.0) pg MCHC 36.4 (31.0-37.0) g/dL RDW 12.3 (11.5-15.5) % Plt Count 243 (150-450) k/uL MPV 8.1 Neutrophils % 52 % Lymphocytes % 35 % Monocytes % 7 % Eosinophils % 3 % Basophils % 1 % Neutrophils # 3.0 (1.3-7.7) k/uL Lymphocytes # 2.0 (1.0-4.8) k/uL Monocytes # 0.4 (0-1.0) k/uL Eosinophils # 0.2 (0-0.7) k/uL Basophils # 0.1 (0-0.2) k/uL Sodium 137 (137-145) mmol/L Potassium 3.9 (3.5-5.1) mmol/L Chloride 106 (98-107) mmol/L Carbon Dioxide 23 (22-30) mmol/L Anion Gap 8 mmol/L BUN 14 (7-17) mg/dL Creatinine 0.73 (0.52-1.04) mg/dL Est GFR (CKD-EPI)AfAm >90 (>60 ml/min/1.73 sqM) Est GFR (CKD-EPI)NonAf >90 (>60 ml/min/1.73 sqM) Glucose 95 (74-99) mg/dL Plasma Lactic Acid Paulino 1.2 (0.7-2.0) mmol/L Calcium 8.8 (8.4-10.2) mg/dL Total Bilirubin 1.3 (0.2-1.3) mg/dL AST 28 (14-36) U/L ALT 19 (4-34) U/L Alkaline Phosphatase 74 (38-126) U/L Total Protein 6.6 (6.3-8.2) g/dL Albumin 4.0 (3.5-5.0) g/dL Amylase 66 (30-110) U/L Lipase 149 (23-300) U/L Urine Color Urine Appearance (Clear) Urine pH (5.0-8.0) Ur Specific Bryant (1.001-1.035) Urine Protein (Negative) Urine Glucose (UA) (Negative) Urine Ketones (Negative) Urine Blood (Negative) Urine Nitrite (Negative) Urine Bilirubin (Negative) Urine Urobilinogen (<2.0) mg/dL Ur Leukocyte Esterase (Negative) Urine RBC (0-5) /hpf Urine WBC (0-5) /hpf Ur Squamous Epith Cells (0-4) /hpf Urine Bacteria (None) /hpf Urine Mucus (None) /hpf 07/16/22 Range/Units 07:57 WBC (3.8-10.6) k/uL RBC (3.80-5.40) m/uL Hgb (11.4-16.0) gm/dL Hct (34.0-46.0) % MCV (80.0-100.0) fL MCH (25.0-35.0) pg MCHC (31.0-37.0) g/dL RDW (11.5-15.5) % Plt Count (150-450) k/uL MPV Neutrophils % % Lymphocytes % % Monocytes % % Eosinophils % % Basophils % % Neutrophils # (1.3-7.7) k/uL Lymphocytes # (1.0-4.8) k/uL Monocytes # (0-1.0) k/uL Eosinophils # (0-0.7) k/uL Basophils # (0-0.2) k/uL Sodium (137-145) mmol/L Potassium (3.5-5.1) mmol/L Chloride (98-107) mmol/L Carbon Dioxide (22-30) mmol/L Anion Gap mmol/L BUN (7-17) mg/dL Creatinine (0.52-1.04) mg/dL Est GFR (CKD-EPI)AfAm (>60 ml/min/1.73 sqM) Est GFR (CKD-EPI)NonAf (>60 ml/min/1.73 sqM) Glucose (74-99) mg/dL Plasma Lactic Acid Paulino (0.7-2.0) mmol/L Calcium (8.4-10.2) mg/dL Total Bilirubin (0.2-1.3) mg/dL AST (14-36) U/L ALT (4-34) U/L Alkaline Phosphatase (38-126) U/L Total Protein (6.3-8.2) g/dL Albumin (3.5-5.0) g/dL Amylase (30-110) U/L Lipase (23-300) U/L Urine Color Yellow Urine Appearance Cloudy H (Clear) Urine pH 6.0 (5.0-8.0) Ur Specific Bryant 1.030 (1.001-1.035) Urine Protein 1+ H (Negative) Urine Glucose (UA) Negative (Negative) Urine Ketones Negative (Negative) Urine Blood Negative (Negative) Urine Nitrite Negative (Negative) Urine Bilirubin Negative (Negative) Urine Urobilinogen <2.0 (<2.0) mg/dL Ur Leukocyte Esterase Small H (Negative) Urine RBC 1 (0-5) /hpf Urine WBC 5 (0-5) /hpf Ur Squamous Epith Cells 10 H (0-4) /hpf Urine Bacteria Rare H (None) /hpf Urine Mucus Moderate H (None) /hpf Disposition Clinical Impression: UTI (urinary tract infection), Flank pain Disposition: HOME SELF-CARE Condition: Stable Instructions (If sedation given, give patient instructions): Flank Pain (ED) Additional Instructions: Please return to the Emergency Department if symptoms worsen or any other concerns. Prescriptions: Cephalexin [Keflex] 500 mg PO Q8HR #21 cap Is patient prescribed a controlled substance at d/c from ED?: No Referrals: Margaret Ritchie [Primary Care Provider] - 1-2 days Time of Disposition: 09:50
[2022-07-16 07:48] LABS: Basophils # (A) 0.1 k/uL (0-0.2); Basophils % (A) 1 %; Eosinophils # (A) 0.2 k/uL (0-0.7); Eosinophils % (A) 3 %; HCT 38.2 % (34.0-46.0); HGB 13.9 gm/dL (11.4-16.0); Lymphocytes % (A) 35 %; MCH 29.9 pg (25.0-35.0); MCHC 36.4 g/dL (31.0-37.0); MCV 82.2 fL (80.0-100.0); Mean Platelet Volume 8.1; Monocytes # (A) 0.4 k/uL (0-1.0); Monocytes % (A) 7 %; Neutrophils % (A) 52 %; Platelet Count 243 k/uL (150-450); RBC 4.64 m/uL (3.80-5.40); RDW 12.3 % (11.5-15.5); WBC 5.8 k/uL (3.8-10.6)
[2022-07-16 08:05] LABS: ALT 19 U/L (4-34); AST 28 U/L (14-36); African American GFR (CKD) >90 (>60 ml/min/1.73 sqM); Alkaline Phosphatase 74 U/L (38-126); Amylase 66 U/L (30-110); Anion Gap 8 mmol/L; Blood Urea Nitrogen 14 mg/dL (7-17); Calcium 8.8 mg/dL (8.4-10.2); Carbon Dioxide 23 mmol/L (22-30); Chloride 106 mmol/L (98-107); Glucose 95 mg/dL (74-99); Lipase 149 U/L (23-300); Non-African American GFR(CKD) >90 (>60 ml/min/1.73 sqM); Potassium 3.9 mmol/L (3.5-5.1); Sodium 137 mmol/L (137-145); Total Bilirubin 1.3 mg/dL (0.2-1.3); Total Protein 6.6 g/dL (6.3-8.2)
[2022-07-16 08:38] LABS: Appearance,Urine Cloudy (Clear); Bacteria,Urine Rare /hpf; Bilirubin,Urine Negative (Negative); Blood,Urine Negative (Negative); Color,Urine Yellow; Glucose,Urine (UA) Negative (Negative); Ketones,Urine Negative (Negative); Leukocyte Esterase,Urine Small (Negative); Mucus,Urine Moderate /hpf; Nitrite,Urine Negative (Negative); Protein,Urine 1+ (Negative); RBC,Urine 1 /hpf (0-5); Squamous Epithelial Cell,Urine 10 /hpf (0-4); Urobilinogen,Urine <2.0 mg/dL (<2.0); WBC,Urine 5 /hpf (0-5)
[2022-07-16] MEDS ORDERED: HYDROmorphone 1 MG/ML 1 ML SYRINGE IVP STA (09:21)
--- NOTE | 2022-07-16 09:31 | US ---
EXAMINATION TYPE: US kidneys/renal and bladder DATE OF EXAM: 07/16/2022 COMPARISON: CT & US CLINICAL HISTORY: right flank pain. Flank pain EXAM MEASUREMENTS: Right Kidney: 10.9 x 4.4 x 4.0 cm Left Kidney: 11.2 x 4.7 x 4.6 cm Right Kidney: No hydronephrosis or masses seen Left Kidney: No hydronephrosis or masses seen Bladder: wnl, not fully distended as pt gave urine sample in ER Bilateral Jets seen: Only left jet visualized There is no evidence for hydronephrosis at this point in time. No nephrolithiasis is seen. No merle s are identified. The urinary bladder is anechoic. IMPRESSION: No acute process.
[2022-07-16] MEDS ORDERED: ACET/COD 300 MG/30 MG STARTER PACK 6 TAB BTL PO STA (09:51)
[2022-07-16 10:25] VITALS: BP 129/89; PULSE 77; RESP 18; TEMP 98.7
== END 2022-07-16 10:28 | disposition home or self-care (01) ==
LOC: EC 05:45
DX: N39.0 Urinary tract infection, site not specified (principal); J45.909 Unspecified asthma, uncomplicated; F90.9 Attention-deficit hyperactivity disorder, unspecified type; Z79.899 Other long term (current) drug therapy; Z88.6 Allergy status to analgesic agent; Z88.8 Allergy status to other drugs, medicaments and biological substances
CPT/HCPCS: 36415; 80053; 82150; 83605; 83690; 85025; 81001; 76770; 99284; 96374; 96375; 96376; 96361 ×3; J2405; J1170 ×2

== ENCOUNTER 2022-10-21 13:02 | Emergency (ER) | payer MEDICARE, OTHER ==
[2022-10-21 13:19] VITALS: PULSE 90; TEMP 98
[2022-10-21 14:26] LABS: Appearance,Urine Cloudy (Clear); Bacteria,Urine Rare /hpf; Bilirubin,Urine Negative (Negative); Blood,Urine Trace (Negative); Color,Urine Yellow; Glucose,Urine (UA) Negative (Negative); Ketones,Urine Negative (Negative); Leukocyte Esterase,Urine Large (Negative); Mucus,Urine Rare /hpf; Nitrite,Urine Negative (Negative); Protein,Urine Trace (Negative); RBC,Urine 3 /hpf (0-5); Specific Gravity,Urine 1.018 (1.001-1.035); Squamous Epithelial Cell,Urine 7 /hpf (0-4); Urobilinogen,Urine <2.0 mg/dL (<2.0); WBC,Urine 20 /hpf (0-5)
[2022-10-21] MEDS ORDERED: MORPHINE SULFATE 4 MG/ML SYRINGE IVP STA (14:36)
[2022-10-21] MEDS ORDERED: ONDANSETRON 4 MG/2 ML VIAL IVP STA (14:37)
[2022-10-21] MEDS ORDERED: SODIUM CHLORIDE 0.9% 1,000 ML IV STA (14:37)
[2022-10-21 15:10] LABS: HGB 14.5 gm/dL (11.4-16.0); MCH 28.2 pg (25.0-35.0); MCV 81.6 fL (80.0-100.0); RBC 5.15 m/uL (3.80-5.40); WBC 4.4 k/uL (3.8-10.6)
[2022-10-21 15:11] LABS: Basophils % (A) 1 %; Eosinophils # (A) 0.1 k/uL (0-0.7); Eosinophils % (A) 2 %; Lymphocytes # (A) 1.3 k/uL (1.0-4.8); Lymphocytes % (A) 30 %; MCHC 34.6 g/dL (31.0-37.0); Mean Platelet Volume 7.4; Monocytes # (A) 0.2 k/uL (0-1.0); Monocytes % (A) 5 %; Neutrophils # (A) 2.7 k/uL (1.3-7.7); Neutrophils % (A) 61 %; Platelet Count 258 k/uL (150-450); RDW 12.3 % (11.5-15.5)
[2022-10-21 15:51] LABS: ALT 27 U/L (4-34); AST 30 U/L (14-36); African American GFR (CKD) >90 (>60 ml/min/1.73 sqM); Albumin 4.3 g/dL (3.5-5.0); Alkaline Phosphatase 120 U/L (38-126); Anion Gap 8 mmol/L; Blood Urea Nitrogen 15 mg/dL (7-17); Calcium 9.6 mg/dL (8.4-10.2); Carbon Dioxide 24 mmol/L (22-30); Chloride 105 mmol/L (98-107); Glucose 96 mg/dL (74-99); Lipase 149 U/L (23-300); Non-African American GFR(CKD) 85 (>60 ml/min/1.73 sqM); Potassium 4.6 mmol/L (3.5-5.1); Sodium 137 mmol/L (137-145); Total Bilirubin 2.4 mg/dL (0.2-1.3); Total Protein 7.1 g/dL (6.3-8.2)
--- NOTE | 2022-10-21 16:19 | CT ---
EXAMINATION TYPE: CT abdomen pelvis w con DATE OF EXAM: 10/21/2022 COMPARISON: 08/04/2021 HISTORY: Pelvic pain post bladder prolapse surgery on September 30. CT DLP: 1502.9 mGycm CONTRAST: CT scan of the abdomen and pelvis is performed without Oral Contrast and with IV Contrast, patient in jected with 100ml mL of Isovue 300. FINDINGS: LUNG BASES-: No visible nodule. No infiltrate. LIVER/GB: No calcified gallstones. No space occupying hepatic lesion. Biliary tree is of normal ca liber. PANCREAS: No inflammation. No distinct mass. SPLEEN: No splenic enlargement. No lesion seen. ADRENALS: No nodule. No thickening. KIDNEYS/BLADDER: No hydronephrosis. No nephrolithiasis. No distinct renal mass. Urinary bladder g rossly unremarkable. BOWEL: Normal appendix. Normal bowel caliber. No inflammation. GENITAL ORGANS: No gross abnormality. LYMPH NODES: No greater than 1cm abdominal or pelvic lymph nodes are appreciated. AORTA: No significant abnormality. OSSEOUS STRUCTURES: No significant abnormality is seen. OTHER: [employer] shunt is in place. IMPRESSION: 1. No acute process
--- NOTE | 2022-10-21 17:20 | US ---
EXAMINATION TYPE: US pelvic complete DATE OF EXAM: 10/21/2022 COMPARISON: None CLINICAL HISTORY: pain fever s/p pelvic procedure. Partial hysterectomy. Bladder lift and vaginal pro lapse surgery 09/30/22. Fever and pelvic pain TECHNIQUE: Transabdominal (TA). No transvaginal due to vaginal surgery Date of LMP: unknown EXAM MEASUREMENTS: Uterus: Surgically absent. Endometrial Stripe: Not applicable. Right Ovary: Unable to visualize. Left Ovary: Unable to visualize. Right Ovary: Obscured by overlying bowel gas Left Ovary: Obscured by overlying bowel gas Bilateral Adnexa: wnl Cul-de-sac:*Minimal amount of free fluid ML IMPRESSION: No acute process.
[2022-10-21] MEDS ORDERED: CEPHALEXIN 500 MG CAP PO STA (18:26)
--- NOTE | 2022-10-21 18:29 | ED ---
Abdominal Pain HPI - General Chief Complaint: Abdominal Pain Stated Complaint: post op Time Seen by Provider: 10/21/22 14:01 Source: patient Mode of arrival: ambulatory Limitations: no limitations - History of Present Illness Initial Comments: Patient is a 42-year-old female presents to the emergency department for abdominal pain. She had a prolapsed uterus and bladder lift procedure on 09/[address] Cameron at [facility]. Patient has continued to have abdominal pain since the procedure. She reports pain intravaginally that has not improved. She is prescribed Percocet she took one prior to arrival. She has some mild burning with urination her urologist placed her on Macrobid at her follow-up on however patient's symptoms have not improved. Today she had chills and vaginal discharge which is white to brown in color. No abnormal odor to the discharge. No reported fever. Patient does have nausea without any vomiting. Patient still has intravaginal states states she is on pelvic rest which she has been compliant with. - Related Data Home Medications Medication Instructions Recorded Confirmed Montelukast Sodium [Singulair] 10 mg PO HS 08/13/18 10/21/22 oxyCODONE-APAP 10-325MG [Percocet 1 tab PO Q4H PRN 08/13/18 10/21/22 10-325 mg] tiZANidine [Zanaflex] 4 mg PO Q8H PRN 08/17/19 10/21/22 Albuterol Sulfate [Albuterol 2 puff INHALATION RT-Q4H PRN 02/17/21 10/21/22 Sulfate Hfa] Dicyclomine [Bentyl] 10 mg PO QID PRN 02/17/21 10/21/22 Famotidine [Pepcid] 20 mg PO BID 02/17/21 10/21/22 Levocetirizine Dihydrochloride 5 mg PO HS 02/17/21 10/21/22 [Xyzal] Rimegepant Sulfate [Nurtec Odt] 75 mg PO DAILY PRN 02/17/21 10/21/22 Erenumab-Aooe [Aimovig 140 mg SQ Q30D 08/04/21 10/21/22 Autoinjector] Atorvastatin [Lipitor] 20 mg PO DAILY 10/21/22 10/21/22 Cholecalciferol [Vitamin D3 (25 25 mcg PO DAILY 10/21/22 10/21/22 Mcg = 1000 Iu)] Fluticasone Nasal Brock [Flonase 1 - 2 spray EA NOSTRIL DAILY PRN 10/21/22 10/21/22 Nasal Brock] Fluticasone Propionate 110 Mcg 2 puff INHALATION RT-BID 10/21/22 10/21/22 [Flovent 110 Mcg Inhaler] Lisdexamfetamine Dimesylate 30 mg PO QAM 10/21/22 10/21/22 [Vyvanse] Metoprolol Tartrate [Lopressor] 12.5 mg PO BID 10/21/22 10/21/22 Oxybutynin Chloride [Ditropan] 5 mg PO TID PRN 10/21/22 10/21/22 Risankizumab-Rzaa [Skyrizi] 150 mg SQ Q90D 10/21/22 10/21/22 Zolpidem Tartrate [Ambien] 10 mg PO HS PRN 10/21/22 10/21/22 clonazePAM 2 mg PO HS 10/21/22 10/21/22 medroxyPROGESTERone [Depo-Provera] 150 mg IM Q90D 10/21/22 10/21/22 Previous Rx's Medication Instructions Recorded Cephalexin [Keflex] 500 mg PO BID #14 cap 10/21/22 Ondansetron Odt [Zofran Odt] 4 mg PO Q8HR PRN #6 tab 10/21/22 Allergies Allergy/AdvReac Type Severity Reaction Status Date / Time ibuprofen [From Motrin] AdvReac Kidney Verified 10/21/22 16:17 Failure metoclopramide HCl AdvReac Hallucinati Verified 10/21/22 16:17 [From Reglan] ons NSAIDS (Non-Steroidal AdvReac Kidney Verified 10/21/22 16:17 Anti-Inflamma Failure pregabalin [From Lyrica] AdvReac Cough Verified 10/21/22 16:17 prochlorperazine AdvReac Hallucinati Verified 10/21/22 16:17 [From Compazine] ons Review of Systems ROS Statement: Those systems with pertinent positive or pertinent negative responses have been documented in the HPI. ROS Other: All systems not noted in ROS Statement are negative. Past Medical History Past Medical History: Asthma, Chest Pain / Angina Additional Past Medical History / Comment(s): chiari malformation, migraines, uti, uterine mass, infected wisdom tooth. IBS, lupus, interstitial cystitis. POLYNEPHRITIS. 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 bladder suspenion fe 1, hysterectomy. bladder lift uterus lift Past Anesthesia/Blood Transfusion Reactions: No Reported Reaction Past Psychological History: ADD/ADHD Smoking Status: Never smoker Past Alcohol Use History: None Reported Past Drug Use History: None Reported - Past Family History Mother Family Medical History: No Reported History Father Family Medical History: Unable to Obtain General Exam Limitations: no limitations General appearance: alert, in no apparent distress Head exam: Present: atraumatic, normocephalic, normal inspection Eye exam: Present: normal appearance, PERRL, EOMI. Absent: scleral icterus, conjunctival injection, periorbital swelling Respiratory exam: Present: normal lung sounds bilaterally. Absent: respiratory distress, wheezes, rales, rhonchi, stridor Cardiovascular Exam: Present: regular rate, normal rhythm, normal heart sounds. Absent: systolic murmur, diastolic murmur, rubs, gallop, clicks GI/Abdominal exam: Present: soft, tenderness (pelvic bilateral), normal bowel sounds. Absent: distended, guarding, rebound, rigid Back exam: Present: normal inspection, full ROM. Absent: tenderness, CVA tenderness (R), CVA tenderness (L), paraspinal tenderness, vertebral tenderness Neurological exam: Present: alert, oriented X3, CN II-XII intact Psychiatric exam: Present: normal affect, normal mood Skin exam: Present: warm, dry, intact, normal color. Absent: rash Course Vital Signs 10/21/22 10/21/22 13:16 19:00 Temperature 98 F Pulse Rate 90 90 Respiratory 20 18 Rate Blood Pressure 130/91 119/77 O2 Sat by Pulse 98 99 Oximetry Medical Decision Making - Medical Decision Making Was pt. sent in by a medical professional or institution (, PA, RAW PRODUCTS DIRECTOR, urgent care, hospital, or halfway...) When possible be specific @ -[No] Did you speak to anyone other than the patient for history (EMS, parent, family, police, friend...)? What history was obtained from this source @ -[No] Did you review nursing and triage notes (agree or disagree)? Why? @ -[I reviewed and agree with nursing and triage notes] Were old charts reviewed (outside hosp., previous admission, EMS record, old EKG, old radiological studies, urgent care reports/EKG's, halfway records)? Report findings @ -[No old charts were reviewed] Differential Diagnosis (chest pain, altered mental status, abdominal pain women, abdominal pain men, vaginal bleeding, weakness, fever, dyspnea, syncope, headache, dizziness, GI bleed, back pain, seizure, CVA, palpatations, mental health)? @ -Differential Abdominal Pain Women: Abscess, post-op pain, Appendicitis, Cholecystitis, diverticulosis, ischemic bowel, pancreatitis, hepatitis, UTI, gastroenteritis, AAA, incarcerated hernia, bowel obstruction, constipation, inflammatory bowel, hepatitis, peptic ulcer disease, splenic infarction, perforated viscus, vulvitis, ovarian torsion, PID, kidney stone, placenta abruption, this is not meant to be an all-inclusive list EKG interpreted by me (3pts min.). @ -[As above] X-rays interpreted by me (1pt min.). @ -[None done] CT interpreted by me (1pt min.). @ -Yes, CT of the abdomen and pelvis is negative for abscess and other acute process U/S interpreted by me (1pt. min.). @ -No. Pelvic ultrasound report is negative for acute process What testing was considered but not performed or refused? (CT, X-rays, U/S, labs)? Why? @ -[None] What meds were considered but not given or refused? Why? @ -[None] Did you discuss the management of the patient with other professionals (professionals i.e. , PA, [employer] PRODUCTS DIRECTOR, lab, RT, psych nurse, elementary school social worker, continuous vulcanizing machine operator, teacher, [employer]ad[employer] plans staff officer, heel caser)? Give summary @ -Dr. Mcintyre at [facility]-see hospital course Was smoking cessation discussed for >3mins.? @ -[No] Was critical care preformed (if so, how long)? @ -[No] Were there social determinants of health that impacted care today? How? (Homelessness, low income, unemployed, alcoholism, drug addiction, transportation, low edu. Level, literacy, decrease access to med. care, longterm, rehab)? @ -[No] Was there de-escalation of care discussed even if they declined (Discuss DNR or withdrawal of care, Hospice)? DNR status @ -[No] What co-morbidities impacted this encounter? (DM, HTN, Smoking, COPD, CAD, Cancer, CVA, ARF, Chemo, Hep., AIDS, mental health diagnosis, sleep apnea, morbid obesity)? @ -[None] Was patient admitted / discharged? Hospital course, mention meds given and route, prescriptions, significant lab abnormalities, going to OR and other pertinent info. @ -Patient presenting with postoperative abdominal pain. She is afebrile.Bilirubin is elevated at 2.4. Patient does not have any right upper quadrant tenderness. Urinalysis shows questionable infection it is contaminated by squamous cells. CT of the abdomen and pelvis with contrast is negative for abscess and other acute process. I then obtained pelvic US which is again negative for acute process. Spoke with Dr. Mcintyre who is covering for Dr. Cameron. We discussed case at this time there are no diagnostic studies to explain patient's post-operative pain. Patient will be placed on Keflex for possible UTI she will follow up with her urologist at earliest available appointment Undiagnosed new problem with uncertain prognosis? @ -[No] Drug Therapy requiring intensive monitoring for toxicity (Heparin, Nitro, Insulin, Cardizem)? @ -[No] Were any procedures done? @ -[No] Diagnosis/symptom? @ -post-op pain Acute, or Chronic, or Acute on Chronic? @ -acute Uncomplicated (without systemic symptoms) or Complicated (systemic symptoms)? @ -uncomplicated Side effects of treatment? @ -[No] Exacerbation, Progression, or Severe Exacerbation? @ -[No] Poses a threat to life or bodily function? How? (Chest pain, USA, ME, pneumonia, PE, COPD, DKA, ARF, appy, cholecystitis, CVA, Diverticulitis, Homicidal, Suicidal, threat to staff... and all critical care pts) @ -[No] Dr. Irby is my attending - Lab Data Result diagrams: 10/21/22 14:55 10/21/22 14:55 Lab Results 10/21/22 10/21/22 10/21/22 Range/Units 13:50 14:55 14:55 WBC 4.4 (3.8-10.6) k/uL RBC 5.15 (3.80-5.40) m/uL Hgb 14.5 (11.4-16.0) gm/dL Hct 42.0 (34.0-46.0) % MCV 81.6 (80.0-100.0) fL MCH 28.2 (25.0-35.0) pg MCHC 34.6 (31.0-37.0) g/dL RDW 12.3 (11.5-15.5) % Plt Count 258 (150-450) k/uL MPV 7.4 Neutrophils % 61 % Lymphocytes % 30 % Monocytes % 5 % Eosinophils % 2 % Basophils % 1 % Neutrophils # 2.7 (1.3-7.7) k/uL Lymphocytes # 1.3 (1.0-4.8) k/uL Monocytes # 0.2 (0-1.0) k/uL Eosinophils # 0.1 (0-0.7) k/uL Basophils # 0.0 (0-0.2) k/uL Sodium 137 (137-145) mmol/L Potassium 4.6 (3.5-5.1) mmol/L Chloride 105 (98-107) mmol/L Carbon Dioxide 24 (22-30) mmol/L Anion Gap 8 mmol/L BUN 15 (7-17) mg/dL Creatinine 0.86 (0.52-1.04) mg/dL Est GFR (CKD-EPI)AfAm >90 (>60 ml/min/1.73 sqM) Est GFR (CKD-EPI)NonAf 85 (>60 ml/min/1.73 sqM) Glucose 96 (74-99) mg/dL Plasma Lactic Acid Paulino (0.7-2.0) mmol/L Calcium 9.6 (8.4-10.2) mg/dL Total Bilirubin 2.4 H (0.2-1.3) mg/dL AST 30 (14-36) U/L ALT 27 (4-34) U/L Alkaline Phosphatase 120 (38-126) U/L Total Protein 7.1 (6.3-8.2) g/dL Albumin 4.3 (3.5-5.0) g/dL Lipase 149 (23-300) U/L Urine Color Yellow Urine Appearance Cloudy H (Clear) Urine pH 6.0 (5.0-8.0) Ur Specific [place] 1.018 (1.001-1.035) Urine Protein Trace H (Negative) Urine Glucose (UA) Negative (Negative) Urine Ketones Negative (Negative) Urine Blood Trace H (Negative) Urine Nitrite Negative (Negative) Urine Bilirubin Negative (Negative) Urine Urobilinogen <2.0 (<2.0) mg/dL Ur Leukocyte Esterase Large H (Negative) Urine RBC 3 (0-5) /hpf Urine WBC 20 H (0-5) /hpf Ur Squamous Epith Cells 7 H (0-4) /hpf Urine Bacteria Rare H (None) /hpf Urine Mucus Rare H (None) /hpf 10/21/22 Range/Units 14:55 WBC (3.8-10.6) k/uL RBC (3.80-5.40) m/uL Hgb (11.4-16.0) gm/dL Hct (34.0-46.0) % MCV (80.0-100.0) fL MCH (25.0-35.0) pg MCHC (31.0-37.0) g/dL RDW (11.5-15.5) % Plt Count (150-450) k/uL MPV Neutrophils % % Lymphocytes % % Monocytes % % Eosinophils % % Basophils % % Neutrophils # (1.3-7.7) k/uL Lymphocytes # (1.0-4.8) k/uL Monocytes # (0-1.0) k/uL Eosinophils # (0-0.7) k/uL Basophils # (0-0.2) k/uL Sodium (137-145) mmol/L Potassium (3.5-5.1) mmol/L Chloride (98-107) mmol/L Carbon Dioxide (22-30) mmol/L Anion Gap mmol/L BUN (7-17) mg/dL Creatinine (0.52-1.04) mg/dL Est GFR (CKD-EPI)AfAm (>60 ml/min/1.73 sqM) Est GFR (CKD-EPI)NonAf (>60 ml/min/1.73 sqM) Glucose (74-99) mg/dL Plasma Lactic Acid Paulino 0.9 (0.7-2.0) mmol/L Calcium (8.4-10.2) mg/dL Total Bilirubin (0.2-1.3) mg/dL AST (14-36) U/L ALT (4-34) U/L Alkaline Phosphatase (38-126) U/L Total Protein (6.3-8.2) g/dL Albumin (3.5-5.0) g/dL Lipase (23-300) U/L Urine Color Urine Appearance (Clear) Urine pH (5.0-8.0) Ur Specific [place] (1.001-1.035) Urine Protein (Negative) Urine Glucose (UA) (Negative) Urine Ketones (Negative) Urine Blood (Negative) Urine Nitrite (Negative) Urine Bilirubin (Negative) Urine Urobilinogen (<2.0) mg/dL Ur Leukocyte Esterase (Negative) Urine RBC (0-5) /hpf Urine WBC (0-5) /hpf Ur Squamous Epith Cells (0-4) /hpf Urine Bacteria (None) /hpf Urine Mucus (None) /hpf Disposition Clinical Impression: Post-op pain Disposition: HOME SELF-CARE Condition: Good Instructions (If sedation given, give patient instructions): Urinary Tract Infection in Women (DC) Additional Instructions: Take antibiotic as directed. Continue Percocet for pain. Please follow up with Dr. Cameron at earliest available appointment. Return to the emergency department if you experience new, concerning, or worsening symptoms. Prescriptions: Cephalexin [Keflex] 500 mg PO BID #14 cap Ondansetron Odt [Zofran Odt] 4 mg PO Q8HR PRN #6 tab PRN Reason: Nausea Is patient prescribed a controlled substance at d/c from ED?: No Referrals: Margaret Ritchie [Primary Care Provider] - 1-2 days
[2022-10-21] MEDS ORDERED: HYDROmorphone 0.5 MG/0.5 ML SYRINGE IVP STA (18:34)
[2022-10-21] MEDS ORDERED: ONDANSETRON 4 MG ODT STARTER PACK 2 TAB BTL PO STA (18:34)
[2022-10-21 19:01] VITALS: BP 119/77; RESP 18
== END 2022-10-21 19:35 | disposition home or self-care (01) ==
LOC: EC 13:02
DX: G89.18 Other acute postprocedural pain (principal); R10.2 Pelvic and perineal pain; J45.909 Unspecified asthma, uncomplicated; F90.9 Attention-deficit hyperactivity disorder, unspecified type; Z79.51 Long term (current) use of inhaled steroids; Z79.899 Other long term (current) drug therapy; Z88.6 Allergy status to analgesic agent; Z88.8 Allergy status to other drugs, medicaments and biological substances
CPT/HCPCS: 36415; 80053; 83605; 83690; 85025; 81001; 87040; 87086; 76856; 74177; 99284; 96374; 96375 ×2; 96361 ×4; J2270; J2405; S0119; J1170; Q9967

== ENCOUNTER 2022-11-22 08:30 | Observation (INO) | payer MEDICARE, OTHER ==
--- NOTE | 2022-11-22 09:06 | XR ---
EXAMINATION TYPE: XR chest 2V DATE OF EXAM: 11/22/2022 COMPARISON: 03/26/2022 TECHNIQUE: PA and lateral views submitted. HISTORY: Chest pain FINDINGS: The lungs are clear and there is no pneumothorax, pleural effusion, or focal pneumonia. Heart size normal and no overt failure. Osseous structures intact. There is limited inspiration and there is a V P shunt catheter.. IMPRESSION: 1. No acute process.
[2022-11-22 09:38] LABS: Basophils % (A) 1 %; Eosinophils # (A) 0.2 k/uL (0-0.7); Eosinophils % (A) 3 %; HCT 42.8 % (34.0-46.0); HGB 14.9 gm/dL (11.4-16.0); Lymphocytes # (A) 2.1 k/uL (1.0-4.8); Lymphocytes % (A) 35 %; MCH 28.3 pg (25.0-35.0); MCHC 34.8 g/dL (31.0-37.0); MCV 81.4 fL (80.0-100.0); Mean Platelet Volume 7.8; Monocytes # (A) 0.3 k/uL (0-1.0); Monocytes % (A) 4 %; Neutrophils # (A) 3.3 k/uL (1.3-7.7); Neutrophils % (A) 55 %; Platelet Count 263 k/uL (150-450); RBC 5.26 m/uL (3.80-5.40); RDW 12.7 % (11.5-15.5)
[2022-11-22 09:40] LABS: ALT 30 U/L (4-34); AST 35 U/L (14-36); African American GFR (CKD) >90 (>60 ml/min/1.73 sqM); Albumin 4.2 g/dL (3.5-5.0); Alkaline Phosphatase 97 U/L (38-126); Anion Gap 12 mmol/L; Blood Urea Nitrogen 17 mg/dL (7-17); Calcium 9.2 mg/dL (8.4-10.2); Carbon Dioxide 23 mmol/L (22-30); Chloride 104 mmol/L (98-107); Glucose 92 mg/dL (74-99); Non-African American GFR(CKD) 86 (>60 ml/min/1.73 sqM); Potassium 4.5 mmol/L (3.5-5.1); Sodium 139 mmol/L (137-145); Total Bilirubin 1.1 mg/dL (0.2-1.3)
--- NOTE | 2022-11-22 09:53 | ED ---
General Adult HPI - General Chief complaint: Chest Pain Stated complaint: chest pain Time Seen by Provider: 11/22/22 08:54 Source: patient Mode of arrival: ambulatory Limitations: no limitations - History of Present Illness Initial comments: Dictation was produced using [employer] dictation software. please excuse any grammatical, word or spelling errors. Chief Complaint: 42-year-old female presents with 4 hours of chest pain History of Present Illness: 42-year-old female she sees cardiology for chronic palpitations. Tuesday and today patient was having some chest pain associated with palpitations. He states that 6 AM she will this morning with chest pain she states that it's a sharp pressure to her substernal area. States that there is some radiation to her left scapular area. Patient has any history of acute coronary syndrome, heart attack. Denies any family history of heart attacks. Patient states that her pain is associated with nausea shortness of breath. Denies any numbness and paresthesias to the arms or legs. She does not feel that the pain is like a sharp tearing sensation that rate radiates to her mid b ack The ROS documented in this emergency department record has been reviewed and confirmed by me. Those systems with pertinent positive or negative responses have been documented in the HPI. All other systems are other negative and/or noncontributory. - Related Data Home Medications Medication Instructions Recorded Confirmed Montelukast Sodium [Singulair] 10 mg PO HS 08/13/18 10/21/22 oxyCODONE-APAP 10-325MG [Percocet 1 tab PO Q4H PRN 08/13/18 10/21/22 10-325 mg] tiZANidine [Zanaflex] 4 mg PO Q8H PRN 08/17/19 10/21/22 Albuterol Sulfate [Albuterol 2 puff INHALATION RT-Q4H PRN 02/17/21 10/21/22 Sulfate Hfa] Dicyclomine [Bentyl] 10 mg PO QID PRN 02/17/21 10/21/22 Famotidine [Pepcid] 20 mg PO BID 02/17/21 10/21/22 Levocetirizine Dihydrochloride 5 mg PO HS 02/17/21 10/21/22 [Xyzal] Rimegepant Sulfate [Nurtec Odt] 75 mg PO DAILY PRN 02/17/21 10/21/22 Erenumab-Aooe [Aimovig 140 mg SQ Q30D 08/04/21 10/21/22 Autoinjector] Atorvastatin [Lipitor] 20 mg PO DAILY 10/21/22 10/21/22 Cholecalciferol [Vitamin D3 (25 25 mcg PO DAILY 10/21/22 10/21/22 Mcg = 1000 Iu)] Fluticasone Nasal [place] [Flonase 1 - 2 spray EA NOSTRIL DAILY PRN 10/21/22 10/21/22 Nasal [place]] Fluticasone Propionate 110 Mcg 2 puff INHALATION RT-BID 10/21/22 10/21/22 [Flovent 110 Mcg Inhaler] Lisdexamfetamine Dimesylate 30 mg PO QAM 10/21/22 10/21/22 [Vyvanse] Metoprolol Tartrate [Lopressor] 12.5 mg PO BID 10/21/22 10/21/22 Oxybutynin Chloride [Ditropan] 5 mg PO TID PRN 10/21/22 10/21/22 Risankizumab-Rzaa [Skyrizi] 150 mg SQ Q90D 10/21/22 10/21/22 Zolpidem Tartrate [Ambien] 10 mg PO HS PRN 10/21/22 10/21/22 clonazePAM 2 mg PO HS 10/21/22 10/21/22 medroxyPROGESTERone [Depo-Provera] 150 mg IM Q90D 10/21/22 10/21/22 Previous Rx's Medication Instructions Recorded Cephalexin [Keflex] 500 mg PO BID #14 cap 10/21/22 Ondansetron Odt [Zofran Odt] 4 mg PO Q8HR PRN #6 tab 10/21/22 Allergies Allergy/AdvReac Type Severity Reaction Status Date / Time ibuprofen [From Motrin] AdvReac Kidney Verified 11/22/22 08:34 Failure metoclopramide HCl AdvReac Hallucinati Verified 11/22/22 08:34 [From Reglan] ons NSAIDS (Non-Steroidal AdvReac Kidney Verified 11/22/22 08:34 Anti-Inflamma Failure pregabalin [From Lyrica] AdvReac Cough Verified 11/22/22 08:34 prochlorperazine AdvReac Hallucinati Verified 11/22/22 08:34 [From Compazine] ons Review of Systems ROS Statement: Those systems with pertinent positive or pertinent negative responses have been documented in the HPI. ROS Other: All systems not noted in ROS Statement are negative. Past Medical History Past Medical History: Asthma, Chest Pain / Angina Additional Past Medical History / Comment(s): chiari malformation, migraines, uti, uterine mass, infected wisdom tooth. IBS, lupus, interstitial cystitis. POLYNEPHRITIS. 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 bladder suspenion aug 11, hysterectomy. bladder lift uterus lift Past Anesthesia/Blood Transfusion Reactions: No Reported Reaction Past Psychological History: ADD/ADHD Smoking Status: Never smoker Past Alcohol Use History: None Reported Past Drug Use History: None Reported - Past Family History Mother Family Medical History: No Reported History Father Family Medical History: Unable to Obtain General Exam - General Exam Comments Initial Comments: PHYSICAL EXAM: General Impression: Alert and oriented x3, not in acute distress HEENT: Normocephalic atraumatic, extra-ocular movements intact, pupils equal and reactive to light bilaterally, mucous membranes moist. Cardiovascular: Heart regular rate and rhythm Chest: Able to complete full sentences, no retractions, no tachypnea Abdomen: abdomen soft, non-tender, non-distended, no organomegaly Musculoskeletal: Pulses present and equal in all extremities, no peripheral edema Motor: no focal deficits noted Neurological: CN II-XII grossly intact, no focal motor or sensory deficits noted Skin: Intact with no visualized rashes Psych: Normal affect and mood Limitations: no limitations Course Vital Signs 11/22/22 11/22/22 08:32 09:50 Temperature 98 F Pulse Rate 62 63 Respiratory 20 18 Rate Blood Pressure 133/76 126/82 O2 Sat by Pulse 99 98 Oximetry EKG Findings - EKG Comments: EKG Findings:: My EKG interpretation: Ventricular rate 57, sinus bradycardia,. Interval 185, QRS 81, QTc 384. No NV prolongation, no QTC prolongation, no ST or T-wave changes noted. EKG compared to 03/26/2022 showing no changes. Overall, this EKG is unremarkable Medical Decision Making - Medical Decision Making Was pt. sent in by a medical professional or institution ([facility], [facility], urgent care, hospital, or detention...) When possible be specific @ -No Did you speak to anyone other than the patient for history (EMS, parent, family, police, friend...)? What history was obtained from this source @ -No Did you review nursing and triage notes (agree or disagree)? Why? @ -I reviewed and agree with nursing and triage notes Were old charts reviewed (outside hosp., previous admission, EMS record, old EKG , old radiological studies, urgent care reports/EKG's, detention records)? Report findings @ -No old charts were reviewed Differential Diagnosis (chest pain, altered mental status, abdominal pain women, abdominal pain men, vaginal bleeding, musculoskeletal, weakness, fever, dyspnea, syncope, headache, dizziness, GI bleed, back pain, seizure, CVA, palpatations, mental health)? @ -Differential Chest Pain: Stable Angina, Unstable Angina, STEMI, NSTEMI Aortic Dissection, Pneumothorax, Musculoskeletal, Esophageal Spasm GERD, Cholecystitis, Pancreatitis, Zoster, this is not meant to be an all-inclusive list. EKG interpreted by me (3pts min.). @ -See above X-rays interpreted by me (1pt min.). @ -No acute processes CT interpreted by me (1pt min.). @ -None done U/S interpreted by me (1pt. min.). @ -None done What testing was considered but not performed or refused? (CT, X-rays, U/S, labs)? Why? @ -None What meds were considered but not given or refused? Why? @ -None Did you discuss the management of the patient with other professionals (professionals i.e. [facility] Hodge, [facility], lab, RT, psych nurse, social science manager, unix analyst, teacher, first officer and flight instructor, embedded case manager)? Give summary @ -Labs and imaging EKG were discussed with sheet for admission Was smoking cessation discussed for >3mins.? @ -No Was critical care preformed (if so, how long)? @ -No Were there social determinants of health that impacted care today? How? (Homelessness, low income, unemployed, alcoholism, drug addiction, transportation, low edu. Level, literacy, decrease access to med. care, fdc, rehab)? @ -No Was there de-escalation of care discussed even if they declined (Discuss DNR or withdrawal of care, Hospice)? DNR status @ -No What co-morbidities impacted this encounter? (DM, HTN, Smoking, COPD, CAD, Ca ncer, CVA, ARF, Chemo, Hep., AIDS, mental health diagnosis, sleep apnea, morbid obesity)? @ -None Was patient admitted / discharged? Hospital course, mention meds given and route, prescriptions, significant lab abnormalities, going to OR and other pertinent info. @ -42-year-old female presents emergency department for chest pain. Symptoms are atypical typical features. Vital signs upon arrival are within acceptable limits. EKG shows no signs of ischemia infarction. Labs are unremarkable. Patient does have some risk factors will be admitted to observation for suture troponins and cardiac consultation. Undiagnosed new problem with uncertain prognosis? @ -No Drug Therapy requiring intensive monitoring for toxicity (Heparin, Nitro, Insulin, Cardizem)? @ -No Were any procedures done? @ -No Diagnosis/symptom? Acute, or Chronic, or Acute on Chronic? Uncomplicated (without systemic symptoms) or Complicated (systemic symptoms)? @ -1. Chest pain Side effects of treatment? @ -No Exacerbation, Progression, or Severe Exacerbation? @ -No Poses a threat to life or bodily function? How? (Chest pain, [place], [place], pneumonia, PE, COPD, DKA, ARF, appy, cholecystitis, CVA, Diverticulitis, Homicidal, Suicidal, threat to staff... and all critical care pts) @ -No - Lab Data Result diagrams: 11/22/22 08:48 11/22/22 08:48 Lab Results 11/22/22 11/22/22 11/22/22 Range/Units 08:48 08:48 08:48 WBC 6.0 (3.8-10.6) k/uL RBC 5.26 (3.80-5.40) m/uL Hgb 14.9 (11.4-16.0) gm/dL Hct 42.8 (34.0-46.0) % MCV 81.4 (80.0-100.0) fL MCH 28.3 (25.0-35.0) pg MCHC 34.8 (31.0-37.0) g/dL RDW 12.7 (11.5-15.5) % Plt Count 263 (150-450) k/uL MPV 7.8 Neutrophils % 55 % Lymphocytes % 35 % Monocytes % 4 % Eosinophils % 3 % Basophils % 1 % Neutrophils # 3.3 (1.3-7.7) k/uL Lymphocytes # 2.1 (1.0-4.8) k/uL Monocytes # 0.3 (0-1.0) k/uL Eosinophils # 0.2 (0-0.7) k/uL Basophils # 0.0 (0-0.2) k/uL PT 10.4 (9.0-12.0) sec INR 1.0 (<1.2) APTT 22.5 (22.0-30.0) sec D-Dimer 0.30 (<0.60) mg/L FEU Sodium 139 (137-145) mmol/L Potassium 4.5 (3.5-5.1) mmol/L Chloride 104 (98-107) mmol/L Carbon Dioxide 23 (22-30) mmol/L Anion Gap 12 mmol/L BUN 17 (7-17) mg/dL Creatinine 0.85 (0.52-1.04) mg/dL Est GFR (CKD-EPI)AfAm >90 (>60 ml/min/1.73 sqM) Est GFR (CKD-EPI)NonAf 86 (>60 ml/min/1.73 sqM) Glucose 92 (74-99) mg/dL Calcium 9.2 (8.4-10.2) mg/dL Total Bilirubin 1.1 (0.2-1.3) mg/dL AST 35 (14-36) U/L ALT 30 (4-34) U/L Alkaline Phosphatase 97 (38-126) U/L Troponin I (0.000-0.034) ng/mL Total Protein 7.0 (6.3-8.2) g/dL Albumin 4.2 (3.5-5.0) g/dL 11/22/22 Range/Units 08:48 WBC (3.8-10.6) k/uL RBC (3.80-5.40) m/uL Hgb (11.4-16.0) gm/dL Hct (34.0-46.0) % MCV (80.0-100.0) fL MCH (25.0-35.0) pg MCHC (31.0-37.0) g/dL RDW (11.5-15.5) % Plt Count (150-450) k/uL MPV Neutrophils % % Lymphocytes % % Monocytes % % Eosinophils % % Basophils % % Neutrophils # (1.3-7.7) k/uL Lymphocytes # (1.0-4.8) k/uL Monocytes # (0-1.0) k/uL Eosinophils # (0-0.7) k/uL Basophils # (0-0.2) k/uL PT (9.0-12.0) sec INR (<1.2) APTT (22.0-30.0) sec D-Dimer (<0.60) mg/L FEU Sodium (137-145) mmol/L Potassium (3.5-5.1) mmol/L Chloride (98-107) mmol/L Carbon Dioxide (22-30) mmol/L Anion Gap mmol/L BUN (7-17) mg/dL Creatinine (0.52-1.04) mg/dL Est GFR (CKD-EPI)AfAm (>60 ml/min/1.73 sqM) Est GFR (CKD-EPI)NonAf (>60 ml/min/1.73 sqM) Glucose (74-99) mg/dL Calcium (8.4-10.2) mg/dL Total Bilirubin (0.2-1.3) mg/dL AST (14-36) U/L ALT (4-34) U/L Alkaline Phosphatase (38-126) U/L Troponin I <0.012 (0.000-0.034) ng/mL Total Protein (6.3-8.2) g/dL Albumin (3.5-5.0) g/dL Disposition Clinical Impression: Chest pain Disposition: ADMITTED IP TO THIS HOSP Condition: Fair Referrals: Margaret Ritchie [Primary Care Provider] - 1-2 days Decision Time: 10:38
[2022-11-22 09:59] LABS: Partial Thromboplastin Time 22.5 sec (22.0-30.0); Prothrombin Time 10.4 sec (9.0-12.0)
[2022-11-22] MEDS ORDERED: ASPIRIN 81 MG PO STA (11:04)
--- NOTE | 2022-11-22 11:51 | P.HPIM ---
History of Present Illness This is a pleasant 42 his old female with multiple medical problems including Asthma, , chiari malformation, migraines, uti, uterine mass, infected wisdom tooth. IBS, lupus, interstitial cystitis. POLYNEPHRITIS. Patient presents because of chest pain and shortness of breath that started this morning and radiating to the left arm and the left shoulder about mild to moderate in severity, felt like an elephant sitting on the chest and sharp. No elevating or relieving factors. She has some nausea but no vomiting, no diarrhea, no abdominal pain, no urinary complaints, no weakness numbness or headache. She denies smoking alcohol or illicit drugs Patient states that she has partial hysterectomy and her tubes were ligated and there is no way she would be pertinent when I offered to bring the testis 4. Risks and benefits explained Vitals are stable Patient has unremarkable CBC, INR, BMP and liver enzymes D-dimer negative at 0.3. EKG showing sinus bradycardia at [address]-T changes. Chest x-ray: No acute process. Review of Systems Review of systems CONSTITUTIONAL: No fever, no malaise, no fatigue. HEENT: No recent visual problems or hearing problems. Denied any sore throat. CARDIOVASCULAR: No orthopnea, PND, no palpitations, no syncope. PULMONARY: No shortness of breath, no cough, no hemoptysis. GASTROINTESTINAL: No diarrhea, no nausea, no vomiting, no abdominal pain. Normoactive bowel sounds. NEUROLOGICAL: No headaches, no weakness, no numbness. HEMATOLOGICAL: Denies any bleeding or petechiae. GENITOURINARY: Denies any burning micturition, frequency, or urgency. MUSCULOSKELETAL/RHEUMATOLOGICAL: Denies any joint pain, swelling, or any muscle pain. ENDOCRINE: Denies any polyuria or polydipsia. Past Medical History Past Medical History: Asthma, Chest Pain / Angina Additional Past Medical History / Comment(s): chiari malformation, migraines, uti, uterine mass, infected wisdom tooth. IBS, lupus, interstitial cystitis. POLYNEPHRITIS. 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 bladder suspenion fe, hysterectomy. bladder lift uterus lift Past Anesthesia/Blood Transfusion Reactions: No Reported Reaction Past Psychological History: ADD/ADHD Smoking Status: Never smoker Past Alcohol Use History: None Reported Past Drug Use History: None Reported - Past Family History Mother Family Medical History: No Reported History Father Family Medical History: Unable to Obtain Medications and Allergies Home Medications Medication Instructions Recorded Confirmed Type Montelukast Sodium [Singulair] 10 mg PO HS 08/13/18 11/22/22 History oxyCODONE-APAP 10-325MG [Percocet 1 tab PO Q4H 08/13/18 11/22/22 History 10-325 mg] tiZANidine [Zanaflex] 4 mg PO TID 08/17/19 11/22/22 History Albuterol Sulfate [Albuterol 2 puff INHALATION RT-Q4H PRN 02/17/21 11/22/22 History Sulfate Hfa] Dicyclomine [Bentyl] 10 mg PO QID PRN 02/17/21 11/22/22 History Famotidine [Pepcid] 20 mg PO BID 02/17/21 11/22/22 History Levocetirizine Dihydrochloride 5 mg PO DAILY 02/17/21 11/22/22 History [Xyzal] Rimegepant Sulfate [Nurtec Odt] 75 mg PO DAILY PRN 02/17/21 11/22/22 History Erenumab-Aooe [Aimovig 140 mg SQ Q30D 08/04/21 11/22/22 History Autoinjector] Atorvastatin [Lipitor] 20 mg PO HS 10/21/22 11/22/22 History Lisdexamfetamine Dimesylate 30 mg PO DAILY 10/21/22 11/22/22 History [Vyvanse] Metoprolol Tartrate [Lopressor] 12.5 mg PO BID PRN 10/21/22 11/22/22 History Risankizumab-Rzaa [Skyrizi] 150 mg SQ Q90D 10/21/22 11/22/22 History Zolpidem Tartrate [Ambien] 10 mg PO HS 10/21/22 11/22/22 History clonazePAM 2 mg PO HS 10/21/22 11/22/22 History medroxyPROGESTERone [Depo-Provera] 150 mg IM Q90D 10/21/22 11/22/22 History Albuterol Nebulized [Ventolin 2.5 mg INHALATION RT-QID PRN 11/22/22 11/22/22 History Nebulized] Aspirin EC [Ecotrin Low Dose] 81 mg PO DAILY 11/22/22 11/22/22 History Nitroglycerin Sl Tabs [Nitrostat] 0.4 mg SUBLINGUAL Q5M PRN 11/22/22 11/22/22 History Omeprazole [PriLOSEC] 20 mg PO DAILY 11/22/22 11/22/22 History Oxybutynin ER [Ditropan Xl] 15 mg PO DAILY 11/22/22 11/22/22 History diphenhydrAMINE HCL [Benadryl] 25 mg PO HS 11/22/22 11/22/22 History Allergies Allergy/AdvReac Type Severity Reaction Status Date / Time ibuprofen [From Motrin] AdvReac Kidney Verified 11/22/22 11:28 Failure metoclopramide HCl AdvReac Hallucinati Verified 11/22/22 11:28 [From Reglan] ons NSAIDS (Non-Steroidal AdvReac Kidney Verified 11/22/22 11:28 Anti-Inflamma Failure pregabalin [From Lyrica] AdvReac Cough Verified 11/22/22 11:28 prochlorperazine AdvReac Hallucinati Verified 11/22/22 11:28 [From Compazine] ons Physical Exam Vitals: Vital Signs Temp Pulse Resp BP Pulse Ox 11/22/22 11:38 67 18 119/88 98 11/22/22 09:50 63 18 126/82 98 11/22/22 08:32 98 F 62 20 133/76 99 Intake and Output 11/21/22 11/22/22 11/22/22 22:59 06:59 14:59 Other: Weight 85.729 kg GENERAL: The patient is alert and oriented x3, not in any acute distress. Well d eveloped, well nourished. HEENT: Pupils are round and equally reacting to light. EOMI. No scleral icterus. No conjunctival pallor. Normocephalic, atraumatic. No pharyngeal erythema. No thyromegaly. CARDIOVASCULAR: S1 and S2 present. No murmurs, rubs, or gallops. PULMONARY: Chest is clear to auscultation, no wheezing or crackles. ABDOMEN: Soft, nontender, nondistended, normoactive bowel sounds. No palpable organomegaly. MUSCULOSKELETAL: No joint swelling or deformity. EXTREMITIES: No cyanosis, clubbing, or pedal edema. NEUROLOGICAL: Gross neurological examination did not reveal any focal deficits. SKIN: No rashes. no petechiae. Results CBC & Chem 7: 11/22/22 08:48 11/22/22 08:48 Assessment and Plan Assessment: Chest pain, rule out cardiac causes History of migraine History of irritable bowel syndrome History of Chiari malformation Obesity with BMI of 34.6 Plan: Continue with aspirin Cardiology consult Labs and medication were reviewed.. Continue same treatment. Continue with symptomatic treatment. Resume home medication. Monitor labs and vitals. DVT and GI prophylaxis. Further recommendations as per clinical course of the patient DVT prophylaxis: Subcutaneous heparin GI Prophylaxis: Pepcid Prognosis is guarded
[2022-11-22] MEDS: NITROGLYCERIN SL TABS 0.4 MG TAB SUBLINGUAL PRN ×2 (12:46→22:16)
[2022-11-22] MEDS ORDERED: ACETAMINOPHEN TAB 500 MG TAB PO STA (13:10)
--- NOTE | 2022-11-22 14:24 | P.CRDCN ---
History of Present Illness Consult date: 11/22/22 Consult reason: chest pain History of present illness: History of present illness: This is a 42 year old female patient of Dr. 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 Patient gives history that she felt like she had an elephant on her chest and it took her breath away. Pain went from the middle of her chest to her left shoulder and back. She denies history of diabetes, hypertension. She denies having any palpitations. She states she does have some dizziness. She was recently in the office on 11/17/2022 and at that time she was to return to the office in 2 months. She states that she was instructed to increase beta savanna if her heart rate and blood pressure were stable. She states this morning her heart rate was 50 and she was feeling dizzy so she did not take it this morning. Patient is seen today in the emergency center waiting for a bed on the observation unit. . EKG sinus bradycardia at 57 bpm Chest x-ray: No acute process CBC unremarkable. INR 1. D-dimer is 0.3. Electrolytes and renal function normal. Troponin negative 2. Liver function tests are normal. Home cardiac medications: Aspirin 81 mg daily, atorvastatin 20 mg at bedtime, Lopressor 12.5 mg twice daily as needed, Nitrostat as needed Echocardiogram 03/2022: Normal EF Dobutamine stress echo 04/2022 normal EF normal study Review Of Systems: At the time of my evaluation: Constitutional: No fever, no chills. No weakness, fatigue or lethargy. EENT: No headache. No dizziness. Lungs: No shortness of breath, cough, no sputum production. No wheezing. Cardiovascular: No chest pain, no lower extremity edema. No palpitations. No paroxysmal nocturnal dyspnea. No orthopnea. No lightheadedness or dizziness. No syncopal episodes. Abdominal: No abdominal pain. No nausea, vomiting. No diarrhea. No constipation. No bloody or tarry stools. Genitourinary: No dysuria.. No urinary retention. Musculoskeletal: No myalgias. No muscle weakness, no frequent falls. No back pain. No neck pain. Integumentary: No wounds. No rash. No unusual bruising. Neurologic: No aphasia. No facial droop. No change in mentation. No head injury. No headache. Physical examination: Gen: This is a 42 year old female, resting on ER stretcher and appears to be comfortable and in no acute distress VS: reviewed HEENT: Head is atraumatic, normocephalic. Pupils equal, round. Sclerae is anicteric. NECK: Supple. No JVD. . LUNGS: Clear to auscultation. No wheezes or rhonchi. No intercostal retractions. HEART: Regular rate and rhythm. No murmur. ABDOMEN: Soft No tenderness. EXTREMITIES: No pedal edema. No calf tenderness. NEUROLOGICAL: Patient is awake, alert and oriented x3. Assessment: Chest pain with recent negative stress test Palpitations Hyperlipidemia Plan: Continue patient's home cardiac medication Repeat troponins Further recommendations to follow based upon clinical course Thank you kindly for this consultation. Nurse practitioner note has been reviewed, I agree with documented findings and plan of care. Patient was seen and examined. Past Medical History Past Medical History: Asthma, Chest Pain / Angina Additional Past Medical History / Comment(s): chiari malformation, migraines, uti, uterine mass, infected wisdom tooth. IBS, lupus, interstitial cystitis. POLYNEPHRITIS. 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 bladder suspenion aug 11, hysterectomy. bladder lift uterus lift Past Anesthesia/Blood Transfusion Reactions: No Reported Reaction Past Psychological History: ADD/ADHD Smoking Status: Never smoker Past Alcohol Use History: None Reported Past Drug Use History: None Reported - Past Family History Mother Family Medical History: No Reported History Father Family Medical History: Unable to Obtain Medications and Allergies Home Medications Medication Instructions Recorded Confirmed Type Montelukast Sodium [Singulair] 10 mg PO HS 08/13/18 11/22/22 History oxyCODONE-APAP 10-325MG [Percocet 1 tab PO Q4H 08/13/18 11/22/22 History 10-325 mg] tiZANidine [Zanaflex] 4 mg PO TID 08/17/19 11/22/22 History Albuterol Sulfate [Albuterol 2 puff INHALATION RT-Q4H PRN 02/17/21 11/22/22 History Sulfate Hfa] Dicyclomine [Bentyl] 10 mg PO QID PRN 02/17/21 11/22/22 History Famotidine [Pepcid] 20 mg PO BID 02/17/21 11/22/22 History Levocetirizine Dihydrochloride 5 mg PO DAILY 02/17/21 11/22/22 History [Xyzal] Rimegepant Sulfate [Nurtec Odt] 75 mg PO DAILY PRN 02/17/21 11/22/22 History Erenumab-Aooe [Aimovig 140 mg SQ Q30D 08/04/21 11/22/22 History Autoinjector] Atorvastatin [Lipitor] 20 mg PO HS 10/21/22 11/22/22 History Lisdexamfetamine Dimesylate 30 mg PO DAILY 10/21/22 11/22/22 History [Vyvanse] Metoprolol Tartrate [Lopressor] 12.5 mg PO BID PRN 10/21/22 11/22/22 History Risankizumab-Rzaa [Skyrizi] 150 mg SQ Q90D 10/21/22 11/22/22 History Zolpidem Tartrate [Ambien] 10 mg PO HS 10/21/22 11/22/22 History clonazePAM 2 mg PO HS 10/21/22 11/22/22 History medroxyPROGESTERone [Depo-Provera] 150 mg IM Q90D 10/21/22 11/22/22 History Albuterol Nebulized [Ventolin 2.5 mg INHALATION RT-QID PRN 11/22/22 11/22/22 History Nebulized] Aspirin EC [Ecotrin Low Dose] 81 mg PO DAILY 11/22/22 11/22/22 History Nitroglycerin Sl Tabs [Nitrostat] 0.4 mg SUBLINGUAL Q5M PRN 11/22/22 11/22/22 History Omeprazole [PriLOSEC] 20 mg PO DAILY 11/22/22 11/22/22 History Oxybutynin ER [Ditropan Xl] 15 mg PO DAILY 11/22/22 11/22/22 History diphenhydrAMINE HCL [Benadryl] 25 mg PO HS 11/22/22 11/22/22 History Allergies Allergy/AdvReac Type Severity Reaction Status Date / Time ibuprofen [From Motrin] AdvReac Kidney Verified 11/22/22 11:28 Failure metoclopramide HCl AdvReac Hallucinati Verified 11/22/22 11:28 [From Reglan] ons NSAIDS (Non-Steroidal AdvReac Kidney Verified 11/22/22 11:28 Anti-Inflamma Failure pregabalin [From Lyrica] AdvReac Cough Verified 11/22/22 11:28 prochlorperazine AdvReac Hallucinati Verified 11/22/22 11:28 [From Compazine] ons Physical Exam Vitals: Vital Signs Temp Pulse Resp BP Pulse Ox 11/22/22 11:38 67 18 119/88 98 11/22/22 09:50 63 18 126/82 98 11/22/22 08:32 98 F 62 20 133/76 99 Intake and Output 11/21/22 11/22/22 11/22/22 22:59 06:59 14:59 Other: Weight 85.729 kg Results 11/22/22 08:48 11/22/22 08:48 Cardiac Enzymes 11/22/22 11/22/22 Range/Units 08:48 08:48 AST 35 (14-36) U/L Troponin I <0.012 (0.000-0.034) ng/mL Coagulation 11/22/22 Range/Units 08:48 PT 10.4 (9.0-12.0) sec APTT 22.5 (22.0-30.0) sec CBC 11/22/22 Range/Units 08:48 WBC 6.0 (3.8-10.6) k/uL RBC 5.26 (3.80-5.40) m/uL Hgb 14.9 (11.4-16.0) gm/dL Hct 42.8 (34.0-46.0) % Plt Count 263 (150-450) k/uL Comprehensive Metabolic Panel 11/22/22 Range/Units 08:48 Sodium 139 (137-145) mmol/L Potassium 4.5 (3.5-5.1) mmol/L Chloride 104 (98-107) mmol/L Carbon Dioxide 23 (22-30) mmol/L BUN 17 (7-17) mg/dL Creatinine 0.85 (0.52-1.04) mg/dL Glucose 92 (74-99) mg/dL Calcium 9.2 (8.4-10.2) mg/dL AST 35 (14-36) U/L ALT 30 (4-34) U/L Alkaline Phosphatase 97 (38-126) U/L Total Protein 7.0 (6.3-8.2) g/dL Albumin 4.2 (3.5-5.0) g/dL Current Medications Generic Name Dose Route Start Last Admin Trade Name Freq PRN Reason Stop Dose Admin Aspirin 325 mg 11/23/22 09:00 Aspirin 325 Mg Tab PO DAILY JAN Nitroglycerin 0.4 mg 11/22/22 11:04 Nitroglycerin Sl Tabs 0.4 Mg Tab SUBLINGUAL Q5M PRN Chest Pain Intake and Output 11/21/22 11/22/22 11/22/22 22:59 06:59 14:59 Other: Weight 85.729 kg Patient Weight 11/23/22 06:59 Weight 85.729 kg 11/22/22 08:48 11/22/22 08:48
[2022-11-22] MEDS: METOPROLOL TARTRATE 12.5 MG TAB PO SCH ×2 (14:49→20:04)
[2022-11-22] MEDS ORDERED: DICYCLOMINE 10 MG CAP PO PRN (16:17)
[2022-11-22] MEDS ORDERED: ALBUTEROL NEBULIZED 2.5 MG/3 ML INHALATION PRN ×2 (16:17)
[2022-11-22] MEDS: oxyCODONE-APAP 10-325MG 1 EACH TAB PO PRN (20:05)
[2022-11-22] MEDS: FAMOTIDINE 20 MG TAB PO SCH (20:05)
[2022-11-22] MEDS ORDERED: MELATONIN 5 MG TABLET PO PRN (20:26)
[2022-11-22] MEDS ORDERED: ATORVASTATIN 20 MG TAB PO SCH (21:00)
[2022-11-22] MEDS ORDERED: MONTELUKAST 10 MG TAB PO SCH (21:00)
[2022-11-22] MEDS ORDERED: diphenhydrAMINE 25 MG CAP PO SCH (21:00)
[2022-11-23] MEDS ORDERED: PANTOPRAZOLE 40 MG TABLET PO SCH (07:30)
[2022-11-23] MEDS: oxyCODONE-APAP 10-325MG 1 EACH TAB PO PRN (07:55)
[2022-11-23] MEDS ORDERED: OXYBUTYNIN 15 MG TAB.ER.24 PO SCH (09:00)
[2022-11-23] MEDS ORDERED: ASPIRIN 81 MG PO SCH (09:00)
[2022-11-23] MEDS ORDERED: ASPIRIN 325 MG TAB PO SCH (09:00)
[2022-11-23] MEDS ORDERED: HEPARIN SODIUM,PORCINE/PF 5,000 UNIT/0.5 ML SYRINGE SQ SCH (09:00)
[2022-11-23] MEDS: METOPROLOL TARTRATE 12.5 MG TAB PO SCH (09:09)
[2022-11-23] MEDS: FAMOTIDINE 20 MG TAB PO SCH (09:09)
[2022-11-23 09:31] VITALS: BP 113/76; PULSE 71; RESP 16; TEMP 98.2
--- NOTE | 2022-11-23 09:54 | P.PN ---
Subjective Progress Note Date: 11/23/22 History of present illness: This is a 42 year old female patient of Dr. 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 Patient gives history that she felt like she had an elephant on her chest and it took her breath away. Pain went from the middle of her chest to her left shoulder and back. She denies history of diabetes, hypertension. She denies having any palpitations. She states she does have some dizziness. She was recently in the office on 11/17/2022 and at that time she was to return to the office in 2 months. She states that she was instructed to increase beta savanna if her heart rate and blood pressure were stable. She states this morning her heart rate was 50 and she was feeling dizzy so she did not take it this morning. Patient is seen today in the emergency center waiting for a bed on the observation unit. . EKG sinus bradycardia at 57 bpm Chest x-ray: No acute process CBC unremarkable. INR 1. D-dimer is 0.3. Electrolytes and renal function normal. Troponin negative 2. Liver function tests are normal. Home cardiac medications: Aspirin 81 mg daily, atorvastatin 20 mg at bedtime, Lopressor 12.5 mg twice daily as needed, Nitrostat as needed Echocardiogram 03/2022: Normal EF Dobutamine stress echo 04/2022 normal EF normal study 11/23 Patient is seen today on the observation unit. She denies having any chest pain. Her troponins have been negative on 3 draws. Plan is to a really patient and monitor for heart rate. She did have heart rates in the 40s during the night. Physical examination: Gen: This is a 42 year old female, resting in bed and appears to be comfortable and in no acute distress VS: reviewed HEENT: Head is atraumatic, normocephalic. Pupils equal, round. Sclerae is anicteric. NECK: Supple. No JVD. . LUNGS: Clear to auscultation. No wheezes or rhonchi. No intercostal ret ractions. HEART: Regular rate and rhythm. No murmur. ABDOMEN: Soft No tenderness. EXTREMITIES: No pedal edema. No calf tenderness. NEUROLOGICAL: Patient is awake, alert and oriented x3. Assessment: Chest pain with recent negative stress test Palpitations Bradycardia asymptomatic Hyperlipidemia Plan: Continue patient's home cardiac medication Continue patient's Lopressor as dosed at home Patient is cleared for discharge home and may follow-up in the office in one to 2 weeks. Nurse practitioner note has been reviewed, I agree with documented findings and plan of care. Patient was seen and examined. Objective - Vital Signs Vital signs: Vital Signs Temp 97.8 F 11/23/22 01:52 Pulse 62 11/23/22 01:52 Resp 18 11/23/22 01:52 BP 107/74 11/23/22 01:52 Pulse Ox 98 11/23/22 01:52 FiO2 Intake & Output 11/22/22 11/23/22 11/23/22 18:59 06:59 18:59 Weight 85.729 kg Other: # Voids 2 - Labs CBC & Chem 7: 11/22/22 08:48 11/22/22 08:48
[2022-11-23 14:20] LABS: Chol/HDL Ratio 4.14 Ratio; LDL Cholesterol,Calculated 24.5 mg/dL (0.0-131.0)
--- NOTE | 2022-11-26 12:56 | P.DS ---
Providers Date of admission: 11/22/22 11:06 Attending physician: Arnaldo Bates MD Consults: 11/22/22 11:05 Consult Physician Urgent Consulting Provider: Uriel Gregory Consult Reason/Comments: chest pain Do you want consulting provider notified?: Yes Primary care physician: [facility] Course: Diagnoses: Chest pain, cardiac causes ruled out and patient created by medical underwriter. History of migraine History of irritable bowel syndrome History of Chiari malformation Obesity with BMI of 34.6 Hospital course: This is a pleasant 42 his old female with multiple medical problems including Asthma, , chiari malformation, migraines, uti, uterine mass, infected wisdom tooth. IBS, lupus, interstitial cystitis. POLYNEPHRITIS. Patient presents because of chest pain and shortness of breath that started in the morning and radiating to the left arm and the left shoulder about mild to moderate in severity, felt like an elephant sitting on the chest and sharp. No elevating or relieving factors. Patient was monitored for 24 hours, evaluated by medical underwriter. D-dimer was checked and was negative at 0.3. Patient was cleared for discharge by medical underwriter. On the day of discharge patient states her chest pain resolved. She denies any other symptoms. No dyspnea. No new GI or urinary symptoms. No neurological symptoms. No fever. Patient was cleared for discharge by medical underwriter Problems and management plan were discussed with the patient and he verbalized understanding and acceptance Patient was found stable and can be discharged home in guarded prognosis however he needs follow-up as an outpatient. Patient was instructed to follow up with PCP dr. gunter within one week and patient agrees Patient was instructed to follow up with medical underwriter Dr. Shah in 1-2 weeks and she agrees Physical exam Gen: patient is a AAOx3, no distress CVS: S1-S2, RRR, no murmur Lungs: B/L CTA, no wheezing Abdomen: soft, no distention, no tenderness, positive bowel sounds Extremity: no leg edema or induration Time spent more than 35 minutes Patient Condition at Discharge: Fair Plan - Discharge Summary New Discharge Prescriptions: Continue Montelukast Sodium [Singulair] 10 mg PO HS oxyCODONE-APAP 10-325MG [Percocet 10-325 mg] 1 tab PO Q4H tiZANidine [Zanaflex] 4 mg PO TID Albuterol Sulfate [Albuterol Sulfate Hfa] 2 puff INHALATION RT-Q4H PRN PRN Reason: Shortness Of Breath Dicyclomine [Bentyl] 10 mg PO QID PRN PRN Reason: IBS Levocetirizine Dihydrochloride [Xyzal] 5 mg PO DAILY Erenumab-Aooe [Aimovig Autoinjector] 140 mg SQ Q30D Atorvastatin [Lipitor] 20 mg PO HS Omeprazole [PriLOSEC] 20 mg PO DAILY Albuterol Nebulized [Ventolin Nebulized] 2.5 mg INHALATION RT-QID PRN PRN Reason: Shortness Of Breath Aspirin EC [Ecotrin Low Dose] 81 mg PO DAILY Famotidine [Pepcid] 20 mg PO BID Rimegepant Sulfate [Nurtec Odt] 75 mg PO DAILY PRN PRN Reason: Migraine Headache clonazePAM 2 mg PO HS Lisdexamfetamine Dimesylate [Vyvanse] 30 mg PO DAILY Metoprolol Tartrate [Lopressor] 12.5 mg PO BID PRN PRN Reason: Blood Pressure Risankizumab-Rzaa [Skyrizi] 150 mg SQ Q90D diphenhydrAMINE HCL [Benadryl] 25 mg PO HS Nitroglycerin Sl Tabs [Nitrostat] 0.4 mg SUBLINGUAL Q5M PRN PRN Reason: Chest Pain Oxybutynin ER [Ditropan XL] 15 mg PO DAILY No Action medroxyPROGESTERone [Depo-Provera] 150 mg IM Q90D Zolpidem Tartrate [Ambien] 10 mg PO HS Discharge Medication List Montelukast Sodium [Singulair] 10 mg PO HS 08/13/18 [History] oxyCODONE-APAP 10-325MG [Percocet 10-325 mg] 1 tab PO Q4H 08/13/18 [History] tiZANidine [Zanaflex] 4 mg PO TID 08/17/19 [History] Albuterol Sulfate [Albuterol Sulfate Hfa] 2 puff INHALATION RT-Q4H PRN 02/17/21 [History] Dicyclomine [Bentyl] 10 mg PO QID PRN 02/17/21 [History] Famotidine [Pepcid] 20 mg PO BID 02/17/21 [History] Levocetirizine Dihydrochloride [Xyzal] 5 mg PO DAILY 02/17/21 [History] Rimegepant Sulfate [Nurtec Odt] 75 mg PO DAILY PRN 02/17/21 [History] Erenumab-Aooe [Aimovig Autoinjector] 140 mg SQ Q30D 08/04/21 [History] Atorvastatin [Lipitor] 20 mg PO HS 10/21/22 [History] Lisdexamfetamine Dimesylate [Vyvanse] 30 mg PO DAILY 10/21/22 [History] Metoprolol Tartrate [Lopressor] 12.5 mg PO BID PRN 10/21/22 [History] Risankizumab-Rzaa [Skyrizi] 150 mg SQ Q90D 10/21/22 [History] Zolpidem Tartrate [Ambien] 10 mg PO HS 10/21/22 [History] clonazePAM 2 mg PO HS 10/21/22 [History] medroxyPROGESTERone [Depo-Provera] 150 mg IM Q90D 10/21/22 [History] Albuterol Nebulized [Ventolin Nebulized] 2.5 mg INHALATION RT-QID PRN 11/22/22 [History] Aspirin EC [Ecotrin Low Dose] 81 mg PO DAILY 11/22/22 [History] Nitroglycerin Sl Tabs [Nitrostat] 0.4 mg SUBLINGUAL Q5M PRN 11/22/22 [History] Omeprazole [PriLOSEC] 20 mg PO DAILY 11/22/22 [History] Oxybutynin ER [Ditropan XL] 15 mg PO DAILY 11/22/22 [History] diphenhydrAMINE HCL [Benadryl] 25 mg PO HS 11/22/22 [History] Follow up Appointment(s)/Referral(s): Margaret Gunter [Primary Care Provider] - 1-2 days Tierney Shah MD [STAFF PHYSICIAN] - 2 Weeks Activity/Diet/Wound Care/Special Instructions: Heart healthy diet Activity is restricted till you see your doctor Discharge Disposition: HOME SELF-CARE
== END 2022-11-23 13:37 | disposition home or self-care (01) ==
LOC: EC 08:30 → 6NMEDSUR 11:06
PROVIDERS: ADMIT Internal Medicine; ATTEND Internal Medicine
DX: R07.89 Other chest pain (principal); R00.2 Palpitations; R06.02 Shortness of breath; R11.0 Nausea; R00.1 Bradycardia, unspecified; G43.909 Migraine, unspecified, not intractable, without status migrainosus; Q07.02 Arnold-Chiari syndrome with hydrocephalus; M32.9 Systemic lupus erythematosus, unspecified; E78.5 Hyperlipidemia, unspecified; K58.9 Irritable bowel syndrome, unspecified; F90.9 Attention-deficit hyperactivity disorder, unspecified type; Z68.34 Body mass index [BMI] 34.0-34.9, adult; E66.9 Obesity, unspecified; I25.2 Old myocardial infarction; Z79.3 Long term (current) use of hormonal contraceptives; Z79.51 Long term (current) use of inhaled steroids; Z79.899 Other long term (current) drug therapy; Z88.6 Allergy status to analgesic agent; Z88.8 Allergy status to other drugs, medicaments and biological substances; Z87.440 Personal history of urinary (tract) infections; Z86.19 Personal history of other infectious and parasitic diseases; Z90.710 Acquired absence of both cervix and uterus; Z98.2 Presence of cerebrospinal fluid drainage device; Z86.79 Personal history of other diseases of the circulatory system; Z98.890 Other specified postprocedural states
CPT/HCPCS: 96372; 99285; 36415; 93005; 85379; 80061; 80053; 84484; 85025; 85610; 85730; 71046; G0378 ×2; J1644

== ENCOUNTER → 2023-05-10 | Outpatient (CLI) | payer MEDICARE, OTHER ==
--- NOTE | 2023-05-11 13:38 | MM ---
Reason for Exam: Screening (asymptomatic). Last mammogram was performed 1 year(s) and 2 month(s) ago. Indicated Problems: Pain of the left side (Global) for 1 Month(s). Patient History: Menarche at age 13. First Full-Term at age 19. Hysterectomy at age 40. Patient has history of breast feeding. Patient used Hormonal Contraceptives for 2 years. Risk Values: Marge 5 year model risk: 0.5%. NCI Lifetime model risk: 7.2%. Prior Study Comparison: 02/25/2022 Bilateral Screening Mammogram, [facility]. Tissue Density: There are scattered fibroglandular densities. Findings: Analyzed By CAD. There is no suspicious group of microcalcifications or new suspicious mass. Overall Assessment: Negative, BI-RAD 1 Management: Screening Mammogram of both breasts in [address] [facility] will attempt to contact patient to return for supplemental views and ultrasound if indicated. Patient should continue monthly self-breast exams. A clinical breast exam by your physician is recommended on an annual basis. This exam should not preclude additional follow-up of suspicious palpable abnormalities. Note on Marge scores and lifetime risk: 1. A Marge score greater than 3% is considered moderate risk. If this is the case, consider specialist referral to assess eligibility for a risk reducing agent. 2. If overall lifetime risk for the development of breast cancer is 20% or higher, the patient may qualify for future screening with alternating mammogram and breast MRI. Electronically signed and approved by: Grant Young DO
== END | disposition home or self-care (01) ==
LOC: RADMAMWWP 08:22
PROVIDERS: ATTEND Family Medicine
DX: Z12.31 Encounter for screening mammogram for malignant neoplasm of breast (principal)
CPT/HCPCS: 77063; 77067

== ENCOUNTER 2023-08-05 11:48 | Emergency (ER) | payer MEDICARE, OTHER ==
[2023-08-05 12:41] VITALS: RESP 18
--- NOTE | 2023-08-05 12:57 | ED ---
General Adult HPI - General Chief complaint: Abdominal Pain Stated complaint: abd pain Time Seen by Provider: 08/05/23 12:43 Source: patient Mode of arrival: ambulatory Limitations: no limitations - History of Present Illness Initial comments: Dictation was produced using [employer] dictation software. please excuse any grammatical, word or spelling errors. Chief Complaint: 43-year-old female presents emergency department for abdominal discomfort History of Present Illness: Patient is a 43-year-old female presents emergency department with abdominal discomfort she has a history of elevated liver enzymes due to all of her medications and comorbidities. She takes multiple medications. She has history of PRODUCT INTRODUCTION MANAGER shunt secondary to Chiari malformation and was placed several years ago. She recently completed course of antibiotics for COVID prescribed by the urgent care. Patient states that for the last couple days she has been having some abdominal discomfort she has a history of IBS. Not sure if her liver is inflamed. Denies any fever, chills or night sweats. She has had some diarrhea that resolved on its own. No fevers. Denies any other abdominal surgery besides PRODUCT INTRODUCTION MANAGER shunt. The ROS documented in this emergency department record has been reviewed and confirmed by me. Those systems with pertinent positive or negative responses have been documented in the HPI. All other systems are other negative and/or noncontributory. - Related Data Home Medications Medication Instructions Recorded Confirmed Montelukast Sodium [Singulair] 10 mg PO HS 08/13/18 08/05/23 oxyCODONE-APAP 10-325MG [Percocet 1 tab PO QID 08/13/18 08/05/23 10-325 mg] Albuterol Sulfate [Albuterol 2 puff INHALATION RT-Q4H PRN 02/17/21 08/05/23 Sulfate Hfa] Dicyclomine [Bentyl] 10 mg PO QID PRN 02/17/21 08/05/23 Famotidine [Pepcid] 20 mg PO BID 02/17/21 08/05/23 Levocetirizine Dihydrochloride 5 mg PO HS 02/17/21 08/05/23 [Xyzal] Rimegepant Sulfate [Nurtec Odt] 75 mg PO DAILY PRN 02/17/21 08/05/23 Erenumab-Aooe [Aimovig 140 mg SQ Q30D 08/04/21 08/05/23 Autoinjector] Metoprolol Tartrate [Lopressor] 25 mg PO HS 10/21/22 08/05/23 clonazePAM 2 mg PO HS 10/21/22 08/05/23 medroxyPROGESTERone [Depo-Provera] 150 mg IM Q90D 10/21/22 08/05/23 Aspirin EC [Ecotrin Low Dose] 81 mg PO DAILY 11/22/22 08/05/23 Nitroglycerin Sl Tabs [Nitrostat] 0.4 mg SUBLINGUAL Q5M PRN 11/22/22 08/05/23 Oxybutynin ER [Ditropan XL] 15 mg PO HS 11/22/22 08/05/23 diphenhydrAMINE HCL [Benadryl] 25 mg PO HS 11/22/22 08/05/23 Cholecalciferol [Vitamin D3 (25 25 mcg PO DAILY 01/25/23 08/05/23 Mcg = 1000 Iu)] Atorvastatin [Lipitor] 40 mg PO DAILY 08/05/23 08/05/23 Escitalopram [Lexapro] 5 mg PO HS 08/05/23 08/05/23 Hydrocortisone Cream 1 applic TOPICAL HS 08/05/23 08/05/23 [Hydrocortisone 2.5% Cream] Lisdexamfetamine Dimesylate 60 mg PO DAILY 08/05/23 08/05/23 [Vyvanse] Nystatin 100,000 Unit/ml Susp 4 ml PO QID 08/05/23 08/05/23 [Mycostatin Oral Susp] Pantoprazole [Protonix] 40 mg PO DAILY 08/05/23 08/05/23 Zolpidem Tartrate [Ambien] 5 mg PO HS 08/05/23 08/05/23 metroNIDAZOLE 0.75% CREAM 1 applic TOPICAL DAILY 08/05/23 08/05/23 [Metrocream 0.75%] Allergies Allergy/AdvReac Type Severity Reaction Status Date / Time ibuprofen [From Motrin] AdvReac Kidney Verified 08/05/23 14:38 Failure metoclopramide HCl AdvReac Hallucinati Verified 08/05/23 14:38 [From Reglan] ons NSAIDS (Non-Steroidal AdvReac Kidney Verified 08/05/23 14:38 Anti-Inflamma Failure pregabalin [From Lyrica] AdvReac Cough Verified 08/05/23 14:38 prochlorperazine AdvReac Hallucinati Verified 08/05/23 14:38 [From Compazine] ons Review of Systems ROS Statement: Those systems with pertinent positive or pertinent negative responses have been documented in the HPI. ROS Other: All systems not noted in ROS Statement are negative. Past Medical History Past Medical History: Asthma, Chest Pain / Angina Additional Past Medical History / Comment(s): SEE DR. SILVA [facility] & P FOR CARDIAC HX. PSORIATIC ARTHRITIS. POTS . Chiari malformation WITH SHUNT. migraines. IBS, Lupus. HX: CURRENT: DIZZINESS, IRREGULAR HEART RATE. POLYNEPHRITIS. 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 bladder suspenion aug 11, PARTIAL hysterectomy. bladder lift uterus lift Past Anesthesia/Blood Transfusion Reactions: No Reported Reaction Past Psychological History: ADD/ADHD Smoking Status: Never smoker Past Alcohol Use History: None Reported Past Drug Use History: None Reported - Past Family History Mother Family Medical History: No Reported History Father Family Medical History: Unable to Obtain General Exam - General Exam Comments Initial Comments: PHYSICAL EXAM: General Impression: Alert and oriented x3, not in acute distress HEENT: Normocephalic atraumatic, extra-ocular movements intact, pupils equal and reactive to light bilaterally, mucous membranes moist. Cardiovascular: Heart regular rate and rhythm Chest: Able to complete full sentences, no retractions, no tachypnea Abdomen: abdomen soft, n negative Casillas sign, palpatory tenderness to the right upper quadrant, non-distended, no organomegaly Musculoskeletal: Pulses present and equal in all extremities, no peripheral edema Motor: no focal deficits noted Neurological: CN II-XII grossly intact, no focal motor or sensory deficits noted Skin: Intact with no visualized rashes Psych: Normal affect and mood Limitations: no limitations Course Vital Signs 08/05/23 12:31 Temperature 98.2 F Pulse Rate 85 Respiratory 18 Rate Blood Pressure 151/102 O2 Sat by Pulse 98 Oximetry Medical Decision Making - Medical Decision Making Was pt. sent in by a medical professional or institution (, PA, GIZZARD PEELER, urgent care, hospital, or correction...) When possible be specific @ -No Did you speak to anyone other than the patient for history (EMS, parent, family, police, friend...)? What history was obtained from this source @ -No Did you review nursing and triage notes (agree or disagree)? Why? @ -I reviewed and agree with nursing and triage notes Were old charts reviewed (outside hosp., previous admission, EMS record, old EKG, old radiological studies, urgent care reports/EKG's, correction records)? Report findings @ -No old charts were reviewed Differential Diagnosis (chest pain, altered mental status, abdominal pain women, abdominal pain men, vaginal bleeding, musculoskeletal, weakness, fever, dyspnea, syncope, headache, dizziness, GI bleed, back pain, seizure, CVA, palpatations, mental health)? @ -Differential Abdominal Pain Women: Appendicitis, Cholecystitis, diverticulosis, ischemic bowel, pancreatitis, hepatitis, UTI, gastroenteritis, AAA, incarcerated hernia, bowel obstruction, constipation, inflammatory bowel, hepatitis, peptic ulcer disease, splenic infarction, perforated viscus, vulvitis, ovarian torsion, PID, kidney stone, placenta abruption, this is not meant to be an all-inclusive list EKG interpreted by me (3pts min.). @ -None done X-rays interpreted by me (1pt min.). @ -Abdominal x-ray unremarkable for acute processes CT interpreted by me (1pt min.). @ -None done U/S interpreted by me (1pt. min.). @ -P unremarkable for any acute processes What testing was considered but not performed or refused? (CT, X-rays, U/S, labs)? Why? @ -None What meds were considered but not given or refused? Why? @ -None Did you discuss the management of the patient with other professionals (professionals i.e. , PA, GIZZARD PEELER, lab, RT, psych nurse, social services specialist, information assurance officer, teacher, chief scientific officer, catalytic case operator)? Give summary @ -No Was smoking cessation discussed for >3mins.? @ -No Was critical care preformed (if so, how long)? @ -No Were there social determinants of health that impacted care today? How? (Homele ssness, low income, unemployed, alcoholism, drug addiction, transportation, low edu. Level, literacy, decrease access to med. care, long-term, rehab)? @ -No Was there de-escalation of care discussed even if they declined (Discuss DNR or withdrawal of care, Hospice)? DNR status @ -No What co-morbidities impacted this encounter? (DM, HTN, Smoking, COPD, CAD, Cancer, CVA, ARF, Chemo, Hep., AIDS, mental health diagnosis, sleep apnea, morbid obesity)? @ -None Was patient admitted / discharged? Hospital course, mention meds given and route, prescriptions, significant lab abnormalities, going to OR and other pertinent info. @ -43-year-old female presents to the emergency department for right upper q uadrant abdominal pain. Vital signs are stable. Laboratory evaluation is unremarkable. Patient has bilirubin level 1.7. She has history of elevated bilirubin. This is of unclear significance as her liver enzymes are within acceptable limits. Abdominal x-ray and ultrasound is unremarkable. Beta-hCG is negative. Patient well-appearing at bedside. No high risk features. Patient discharged Undiagnosed new problem with uncertain prognosis? @ -No Drug Therapy requiring intensive monitoring for toxicity (Heparin, Nitro, Insulin, Cardizem)? @ -No Were any procedures done? @ -No Diagnosis/symptom? Acute, or Chronic, or Acute on Chronic? Uncomplicated (without systemic symptoms) or Complicated (systemic symptoms)? @ -Abdominal pain, no obvious source Side effects of treatment? @ -No Exacerbation, Progression, or Severe Exacerbation? @ -No Poses a threat to life or bodily function? How? (Chest pain, [place], [place], pneumonia, PE, COPD, DKA, ARF, appy, cholecystitis, CVA, Diverticulitis, Homicidal, Suicidal, threat to staff... and all critical care pts) @ -No - Lab Data Result diagrams: 08/05/23 13:18 08/05/23 13:18 Lab Results 08/05/23 08/05/23 08/05/23 Range/Units 13:18 13:18 13:18 WBC 7.3 (3.8-10.6) k/uL RBC 4.91 (3.80-5.40) m/uL Hgb 15.0 (11.4-16.0) gm/dL Hct 43.9 (34.0-46.0) % MCV 89.3 (80.0-100.0) fL MCH 30.6 (25.0-35.0) pg MCHC 34.3 (31.0-37.0) g/dL RDW 12.3 (11.5-15.5) % Plt Count 185 (150-450) k/uL MPV 7.4 Neutrophils % 61 % Lymphocytes % 29 % Monocytes % 5 % Eosinophils % 3 % Basophils % 1 % Neutrophils # 4.5 (1.3-7.7) k/uL Lymphocytes # 2.1 (1.0-4.8) k/uL Monocytes # 0.4 (0-1.0) k/uL Eosinophils # 0.2 (0-0.7) k/uL Basophils # 0.0 (0-0.2) k/uL Sodium 136 L (137-145) mmol/L Potassium 4.3 (3.5-5.1) mmol/L Chloride 105 (98-107) mmol/L Carbon Dioxide 23 (22-30) mmol/L Anion Gap 8 mmol/L BUN 27 H (7-17) mg/dL Creatinine 0.68 (0.52-1.04) mg/dL Est GFR (CKD-EPI)AfAm >90 (>60 ml/min/1.73 sqM) Est GFR (CKD-EPI)NonAf >90 (>60 ml/min/1.73 sqM) Glucose 97 (74-99) mg/dL Calcium 9.2 (8.4-10.2) mg/dL Total Bilirubin 1.7 H (0.2-1.3) mg/dL AST 28 (14-36) U/L ALT 43 H (4-34) U/L Alkaline Phosphatase 95 (38-126) U/L Total Protein 7.0 (6.3-8.2) g/dL Albumin 4.1 (3.5-5.0) g/dL Urine HCG, Qual Not Detected (Not Detectd) Disposition Clinical Impression: Abdominal pain Disposition: HOME SELF-CARE Condition: Fair Instructions (If sedation given, give patient instructions): Abdominal Pain (ED) Is patient prescribed a controlled substance at d/c from ED?: No Referrals: Santosh Mccord DO [Primary Care Provider] - 1-2 days Time of Disposition: 14:52
[2023-08-05 13:31] LABS: Basophils % (A) 1 %; Eosinophils # (A) 0.2 k/uL (0-0.7); Eosinophils % (A) 3 %; HCT 43.9 % (34.0-46.0); Lymphocytes # (A) 2.1 k/uL (1.0-4.8); Lymphocytes % (A) 29 %; MCH 30.6 pg (25.0-35.0); MCHC 34.3 g/dL (31.0-37.0); MCV 89.3 fL (80.0-100.0); Mean Platelet Volume 7.4; Monocytes # (A) 0.4 k/uL (0-1.0); Monocytes % (A) 5 %; Neutrophils # (A) 4.5 k/uL (1.3-7.7); Neutrophils % (A) 61 %; Platelet Count 185 k/uL (150-450); RBC 4.91 m/uL (3.80-5.40); RDW 12.3 % (11.5-15.5); WBC 7.3 k/uL (3.8-10.6)
[2023-08-05 13:42] LABS: ALT 43 U/L (4-34); AST 28 U/L (14-36); African American GFR (CKD) >90 (>60 ml/min/1.73 sqM); Albumin 4.1 g/dL (3.5-5.0); Alkaline Phosphatase 95 U/L (38-126); Anion Gap 8 mmol/L; Blood Urea Nitrogen 27 mg/dL (7-17); Calcium 9.2 mg/dL (8.4-10.2); Carbon Dioxide 23 mmol/L (22-30); Chloride 105 mmol/L (98-107); Glucose 97 mg/dL (74-99); Non-African American GFR(CKD) >90 (>60 ml/min/1.73 sqM); Potassium 4.3 mmol/L (3.5-5.1); Sodium 136 mmol/L (137-145); Total Bilirubin 1.7 mg/dL (0.2-1.3)
--- NOTE | 2023-08-05 14:48 | XR ---
EXAMINATION TYPE: XR abdomen 1V DATE OF EXAM: 08/05/2023 2:31 PM CLINICAL INDICATION:Female, 43 years old with history of bloating; [facility] COMPARISON: 04/02/2020 TECHNIQUE: One radiographic view of the abdomen was obtained. FINDINGS: The bowel gas pattern is nonspecific without dilated loops of small or large bowel. There i s no evidence for organomegaly or pneumoperitoneum. The osseous structures are intact. No abnormal calcifications are present. Fecal material and gas are demonstrated throughout the colon and rectum. Ventriculoperitoneal shunt tubing terminates in the pelvis slightly left of midline. IMPRESSION: 1. Ventriculoperitoneal shunt tubing terminates in the pelvis slightly left of midline which has yancy nged from 2019. 2. Nonspecific bowel gas pattern without radiographic evidence for acute process.
--- NOTE | 2023-08-05 15:01 | US ---
EXAMINATION TYPE: US abdomen limited DATE OF EXAM: 08/05/2023 COMPARISON: NONE CLINICAL INDICATION: Female, 43 years old with history of RUQ pain; RUQ pain and bloating x 3 weeks TECHNIQUE: Multiple sonographic images of the right upper quadrant are obtained. 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
[2023-08-05 16:07] VITALS: BP 130/87; PULSE 75; TEMP 98.1
== END 2023-08-05 15:53 | disposition home or self-care (01) ==
LOC: EC 11:48
DX: R10.11 Right upper quadrant pain (principal); J45.909 Unspecified asthma, uncomplicated; Z79.899 Other long term (current) drug therapy; Z88.6 Allergy status to analgesic agent; Z88.8 Allergy status to other drugs, medicaments and biological substances
CPT/HCPCS: 36415; 74018; 76705; 80053; 81025; 85025; 99284

== ENCOUNTER → 2023-10-25 | Outpatient (CLI) | payer MEDICARE, OTHER ==
[2023-10-25 16:01] LABS: INR 0.9 (<1.2); Partial Thromboplastin Time 22.4 sec (22.0-30.0); Prothrombin Time 10.3 sec (10.0-12.5)
[2023-10-25 19:00] LABS: HCT 43.4 % (37.2-46.3); HGB 14.3 g/dL (12.0-15.0); MCH 29.4 pg (27.0-32.0); MCHC 32.9 g/dL (32.0-37.0); MCV 89.1 FL (80.0-97.0); Mean Platelet Volume 10.5 FL (9.5-12.2); NRBC Per 100 WBC 0 X 10*3/uL (0.00-0.01); Platelet Count 330 X 10*3/uL (140-440); RBC 4.87 X 10*6/uL (4.10-5.20); RDW 12.2 % (11.5-14.5); WBC 7.51 X 10*3/uL (4.50-10.00)
[2023-10-25 19:07] LABS: ALT 41 U/L (8-44); AST 28 U/L (13-35); Albumin 4.5 g/dL (3.8-4.9); Albumin/Globulin Ratio 2.05 Ratio (1.60-3.17); Alkaline Phosphatase 90 U/L (41-126); BUN/Creat Ratio 19.11 Ratio (12.00-20.00); Blood Urea Nitrogen 17.2 mg/dL (9.0-27.0); Calcium 9.6 mg/dL (8.7-10.3); Carbon Dioxide 22.2 mmol/L (21.6-31.8); Chloride 105 mmol/L (96-109); Globulin 2.2 g/dL (1.6-3.3); Glucose 105 mg/dL (70-110); Potassium 4.8 mmol/L (3.5-5.5); Sodium 140 mmol/L (135-145); Total Protein 6.7 g/dL (6.2-8.2)
== END | disposition home or self-care (01) ==
LOC: LABPAT 14:32
PROVIDERS: ATTEND Orthopaedic Surgery
DX: Z01.812 Encounter for preprocedural laboratory examination (principal); M16.11 Unilateral primary osteoarthritis, right hip; Z22.322 Carrier or suspected carrier of Methicillin resistant Staphylococcus aureus
CPT/HCPCS: 80053; 85027; 85610; 85730; 86850; 86900; 86901; 87070

== ENCOUNTER 2023-11-01 09:33 | Inpatient (IN) | payer MEDICARE, OTHER ==
[2023-10-27 13:40] VITALS: BMI 35.4
[~2023-11-01 09:33] MED LIST: LIDOCAINE 1% (10MG/ML) FOR IV START INTRADERMA PRN; MIDAZOLAM 2 MG/2 ML VIAL IV PRN; TRANEXAMIC 1,000 MG/100ML-NACL 1,000 MG in SALINE 1 100ML.BAG IVPB PRN
[2023-11-01] MEDS ORDERED: ONDANSETRON 4 MG/2 ML VIAL ONE (09:58)
[2023-11-01] MEDS: MELOXICAM 7.5 MG TAB PO PRN (10:23)
[2023-11-01] MEDS: GABAPENTIN 300 MG CAP PO PRN (10:23)
[2023-11-01] MEDS: ACETAMINOPHEN TAB 500 MG TAB PO PRN (10:23)
[2023-11-01] MEDS: DEXAMETHASONE SOD PHOSPHATE 4 MG/ML 1 ML VIAL IV ONE (10:23)
[2023-11-01] MEDS: LACTATED RINGERS 1,000 ML IV SCH (10:23)
[2023-11-01] MEDS: ONDANSETRON 4 MG/2 ML VIAL IVP ONE (10:24)
[2023-11-01] MEDS ORDERED: ACETAMINOPHEN TAB 500 MG TAB ONE (10:29)
[2023-11-01] MEDS: MIDAZOLAM 2 MG/2 ML VIAL IVP ONE (10:57)
[2023-11-01] MEDS: fentaNYL (PF) 50 MCG/ML 2 ML AMP IVP ONE (10:57)
[2023-11-01] MEDS ORDERED: TRANEXAMIC 1,000 MG/100ML-NACL PREMIX BAG ONE (11:25)
[2023-11-01] MEDS ORDERED: NEOSTIGMINE 1 MG/ML 10 ML VIAL ONE (11:25)
[2023-11-01] MEDS ORDERED: PROPOFOL 10 MG/ML 20 ML VIAL IV ONE (11:25)
[2023-11-01] MEDS ORDERED: ePHEDrine 50 MG/ML 1 ML VIAL ONE (11:25)
[2023-11-01] MEDS ORDERED: MIDAZOLAM 2 MG/2 ML VIAL ONE (11:25)
[2023-11-01] MEDS ORDERED: fentaNYL (PF) 50 MCG/ML 2 ML AMP ONE (11:25)
[2023-11-01] MEDS ORDERED: LIDOCAINE 1% INJ 10MG/ML (20 ML MDV) ONE (11:25)
[2023-11-01] MEDS ORDERED: GLYCOPYRROLATE 0.2 MG/ML 2 ML VIAL ONE (11:25)
[2023-11-01] MEDS ORDERED: ROPIVACAINE 5 MG/ML 30 ML VIAL ONE (11:25)
[2023-11-01] MEDS ORDERED: ROCURONIUM 10 MG/ML (5 ML VIAL) IV ONE (11:25)
[2023-11-01] MEDS ORDERED: SUCCINYLCHOLINE CHLORIDE 200 MG/10 ML VIAL IV ONE (11:25)
[2023-11-01] MEDS: ceFAZolin 1,000 MG in SODIUM CHLORIDE 0.9% 1,000 ML IRRIGATION ONE (11:27)
[2023-11-01] MEDS: ROPIVACAINE 5 MG/ML 30 ML VIAL MISCELLANE ONE ×2 (11:29→12:30)
--- NOTE | 2023-11-01 12:03 | P.ANPRN ---
Procedure Note - Anesthesia - Nerve Block Performed Left Pancho Single Time Out Performed: Yes ([id number]) Date of Procedure: 11/01/23 Procedure Start Time: 10:57 Procedure Stop Time: 11:01 Location of Patient: PreOp Indication: Acute Post-Operative Pain, Requested by Surgeon Specifically requested for management of pain by DrIsma: Cristiano Wheeler Sedation Type: Sedate with meaningful contact maintained Preparation: Sterile Prep Position: Supine Catheter: None Needle Types: Pajunk Needle Gauge: 21 Ultrasound used to visualize needle placement: Yes Ultrasound used to observe medication spread: Yes Injectate: 0.5% Ropivacaine (see comment for volume) (30cc) Blood Aspirated: No Pain Paresthesia on Injection Noted: No Resistance on Injection: Normal Image Stored and Saved: Yes Events: Uneventful and Well Tolerated
--- NOTE | 2023-11-01 12:42 | P.OP ---
Date of Procedure: 11/01/23 Preoperative Diagnosis: severe osteoarthritis left hip Postoperative Diagnosis: severe osteoarthritis left hip Procedure(s) Performed: left total hip arthroplasty with a direct anterior approach Implants: [employer] Polarstem standard size 0 with a collar [employer] R3, 3 hole hemispherical acetabular shell, 48 mm [employer] Reflection 6.5 mm cancellus screw, 20 mm 2 [employer] OR30, 36 mm ID, 48 mm OD, Oxinium dual mobility liner [employer] OR30, 22 mm ID, 36 mm OD, XLPE Dual mobility insert [employer] Oxinium femoral head 22 m, +0 All components were press-fit. The articulation is Oxinium on polyethylene. Anesthesia: GETA Surgeon: Cristiano Wheeler Smoke Room Operator #1: Ginny Wilkins Estimated Blood Loss (ml): 300 Pathology: none sent Condition: stable Disposition: PACU Indications for Procedure: After failure of conservative treatment we discussed the surgical and nonsurgical treatment options at length. Patient wishes to proceed with a total hip arthroplasty with a direct anterior approach. Complications specific to this procedure were discussed at length, including but not limited to infection, leg length discrepancy, dislocation, nerve injury, and fracture. Covid-19 was also discussed at length with the patient, and they are aware of the current policies and procedures. The patient was given the option of delaying surgery, but they elect to proceed knowing these risks. Patient is aware of all these complications and informed consent was obtained Operative Findings: The operative findings are consistent with severe osteoarthritis of the left hip Description of Procedure: The patient was seen and evaluated in the preoperative area and the consent was reviewed. The operative site was marked with a skin marker. The patient verified the procedure and operative site. A FABIAN block was placed by anesthesia in the preoperative area. The patient was then brought to the operating room and given preoperative antibiotics intravenously. 1 g of Tranexamic acid was also given intravenously. A general anesthetic was administered by the anesthesia department. The patient was then placed on the Chesterfield table with the bony prominences well-padded. The hip area was then prepped with a ChloraPrep solution and draped in the usual sterile fashion. A universal timeout was then performed, which confirmed the patient's name, surgical site, ALLERGIES, and procedure being performed on the consent. Next the incision site was located at 1 cm distal and 4 cm lateral to the anterior superior iliac spine. The skin and subcutaneous tissues were sharply incised. Incision was carefully dissected down to the fascia overlying the tensor fascia oliver muscle. This fascia was then incised in line with the muscle fibers. Care was taken to stay laterally in order to avoid injuring the lateral femoral cutaneous nerve. Next, using blunt finger dissection, the tensor fascia oliver muscle was dissected off its investing fascia. The muscle was then carefully retracted laterally with a cobra retractor over the lateral neck of the femur. Next, the circumflex vessels were identified and cauterized using the Aquamantis device. The anterior hip capsule was then exposed. The capsule was then opened and an inverted T fashion. The retractors were then placed intracapsularly. The retractors were maintained intracapsular throughout the procedure. The proximal femur was then visualized. Fluoroscopic x-rays were then taken in order to evaluate the preoperative leg lengths. A small amount of traction was placed on the leg. The femoral neck was then osteotomized at the appropriate level above the lesser trochanter. A small wedge of bone was then removed from the remaining femoral head. Next, using a corkscrew the femoral head was removed from the acetabulum. On gross visual inspection, the femoral head had complete loss of articular cartilage and multiple periarticular osteophytes. The femoral head was then measured. Attention was then turned to the acetabulum. The acetabulum was exposed and any remaining labrum was excised. Sequential reaming of the acetabulum was performed using fluoroscopic guidance until there was a good bed of bleeding cancellus bone. When the appropriate size was reached, a trial was then placed. The position and fit of the trial was checked with fluoroscopy. The trial was then removed. Then, using fluoroscopic guidance, the final implant was impacted at 20 of anteversion and 40 of abduction, and fully seated in the acetabulum. 2 screws were then placed in the acetabulum. Again fluoroscopy was used to check position of the screws. Next, the liner was then impacted, with a 20 elevated liner located in the anterior superior quadrant. Component locking was confirmed. Attention was then directed to the femur. With the aid of the Chesterfield table, the femur was externally rotated to approximately 130, extended, and adducted under the opposite leg. A side hook was then placed under the proximal femur, and the side hook elevator was used to elevate the proximal femur while releasing the capsule. Retractors were then placed. A capsular release was performed, as well as a release of the conjoined tendon, which afforded excellent visualization of the proximal femur. Next, a box osteotome was used to lateralize the proximal femur. A almond blancher hand was then used to locate the femoral canal. Sequential broaching was then performed with appropriate size which afforded excellent fixation in the proximal femur. A trial was then placed with appropriate head and neck, and the hip was gently reduced with the aid of the Chesterfield table. Fluoroscopy was then used to check position of the components, as well as to evaluate the leg lengths and offset. The leg lengths and offset were measured as closely as possible to ensure stability of the hip. The hip was then gently dislocated and the trials were then removed. Final implants were then impacted and the hip was again reduced. Final fluoroscopic x-rays confirmed that the components were in anatomic position. The leg lengths and offset were measured and were found to coincide with the trial measurements. The hip was also taken through range of motion, and found to be stable. The hip was then copiously irrigated with antibiotic solution with pulsatile lavage. The hip was then irrigated with Irrisept solution. The soft tissues were then injected with a ropivacaine solution. A second dose of 1 g of Tranexamic acid was also given intravenously. The fascia was then closed with 2-0 strata fix suture. The subcutaneous tissue was closed with 3-0 Vicryl. The subcuticular tissue was closed with 3-0 strata fix suture. The skin was then closed with Exofin skin glue. After the glue and dried, and Optifoam silver impregnated dressing was applied. The patient was then transferred to the recovery room in stable condition. The marketing assistant KAPIL Ortega was required due to the complexity of surgery, and the need for skilled neurosurgical physician assistant for positioning, draping, exposure, retraction, and closure of the wound.
[2023-11-01] MEDS ORDERED: NALOXONE 0.4 MG/ML 1 ML VIAL IV PRN (13:06)
[2023-11-01] MEDS ORDERED: HYDROmorphone 0.5 MG/0.5 ML SYRINGE IVP PRN ×2 (13:06)
[2023-11-01] MEDS: HYDROmorphone 0.5 MG/0.5 ML SYRINGE IVP PRN (13:25)
--- NOTE | 2023-11-01 13:48 | XR ---
EXAMINATION TYPE: XR Hip Limited LT DATE OF EXAM: 11/01/2023 1:27 PM CLINICAL INDICATION:Female, 43 years old with history of Status post hip surgery, assess surgical ali gnment; [facility] COMPARISON: None. TECHNIQUE: XR Hip Limited LT; hip was examined in the frontal projection. FINDINGS: The patient is postop from total left hip arthroplasty. The hardware is intact, without seg ment without obvious complication.. IMPRESSION: No acute process.
[2023-11-01] MEDS: LACTATED RINGERS 1,000 ML IV ONE (15:15)
[2023-11-01] MEDS: ONDANSETRON 4 MG/2 ML VIAL IVP PRN (15:58)
[2023-11-01] MEDS: HYDROmorphone 0.5 MG/0.5 ML SYRINGE IVP ONE (16:44)
[2023-11-01] MEDS: oxyCODONE-APAP 10-325MG 1 EACH TAB PO PRN (17:17)
[2023-11-01] MEDS: SODIUM CHLORIDE 0.9% 1,000 ML IV SCH (18:38)
--- NOTE | 2023-11-01 20:27 | XR ---
EXAMINATION TYPE: XR Hip Limited LT, FL guidance operating room DATE OF EXAM: 11/01/2023 Comparison: None Clinical History: 43-year-old female Left Hip-Ant Findings: Left Hip-Ant 49sec fluoro time 3.[address] Wheeler Impression: Intraoperative fluoroscopy as above.
[2023-11-01] MEDS: HYDROmorphone 1 MG/ML 1 ML SYRINGE IVP PRN (21:25)
[2023-11-01] MEDS: SENNOSIDES-DOCUSATE SODIUM 1 EACH TAB PO SCH (21:26)
[2023-11-01] MEDS: ZOLPIDEM 5 MG TAB PO SCH (22:26)
[2023-11-01] MEDS: METOPROLOL TARTRATE 25 MG TAB PO SCH (22:49)
[2023-11-02] MEDS: MORPHINE SULFATE 4 MG/ML SYRINGE IVP PRN (00:04)
[2023-11-02 08:35] LABS: Basophils # (A) 0.02 X 10*3/uL (0.00-0.10); Basophils % (A) 0.2 %; Eosinophils # (A) 0.01 X 10*3/uL (0.04-0.35); Eosinophils % (A) 0.1 %; HCT 29.6 % (37.2-46.3); HGB 10.2 g/dL (12.0-15.0); Lymphocytes # (A) 1.21 X 10*3/uL (0.90-5.00); Lymphocytes % (A) 14.4 %; MCH 29.9 pg (27.0-32.0); MCHC 34.5 g/dL (32.0-37.0); MCV 86.8 FL (80.0-97.0); Mean Platelet Volume 10.5 FL (9.5-12.2); Monocytes # (A) 0.75 X 10*3/uL (0.20-1.00); Monocytes % (A) 8.9 %; NRBC Per 100 WBC 0 X 10*3/uL (0.00-0.01); Neutrophils # (A) 6.38 X 10*3/uL (1.80-7.70); Neutrophils % (A) 75.9 %; Platelet Count 209 X 10*3/uL (140-440); RBC 3.41 X 10*6/uL (4.10-5.20); RDW 12.2 % (11.5-14.5); WBC 8.41 X 10*3/uL (4.50-10.00)
[2023-11-02] MEDS: RIVAROXABAN 10 MG TAB PO SCH (09:08)
--- NOTE | 2023-11-02 09:51 | P.PN ---
Subjective Progress Note Date: 11/02/23 This is a 43-year-old female who is status post left total hip arthroplasty. This is postoperative day #1 and patient is seen and evaluated at bedside with Dr. Cristiano Wheeler. Patient states that she has been quite sore, but has been able to walk around her room with a walker. Patient denies any fever/chills, chest pain, shortness breath, abdominal pain, numbness, weakness or tingling. Objective - Vital Signs Vital signs: Vital Signs Temp 98.2 F 11/02/23 07:33 Pulse 69 11/02/23 07:33 Resp 18 11/02/23 07:33 BP 110/59 11/02/23 07:33 Pulse Ox 98 11/02/23 07:33 FiO2 Intake & Output 11/01/23 11/02/23 11/02/23 18:59 06:59 18:59 Intake Total 1201 Output Total 300 Balance 901 Weight 89.6 kg Intake: IV 1201 Output: Estimated Blood Loss 300 Other: Voiding Method Toilet # Voids 1 2 - Exam Vital signs are stable. Patient is in no acute distress and is alert and oriented 3. Calf is soft and nontender to palpation. Dressing is clean, dry, and intact. Patient has full foot and ankle motion without pain or difficulty. Sensation intact. Neurovascular status and circulatory status are intact. - Labs CBC & Chem 7: 11/02/23 05:07 Labs: Abnormal Lab Results - Last 24 Hours (Table) 11/02/23 Range/Units 05:07 RBC 3.41 L (4.10-5.20) X 10*6/uL Hgb 10.2 L (12.0-15.0) g/dL Hct 29.6 L (37.2-46.3) % Eosinophils # 0.01 L (0.04-0.35) X 10*3/uL Assessment and Plan (1) Osteoarthritis of left hip Current Visit: Yes Status: Acute Code(s): M16.12 - UNILATERAL PRIMARY OSTEOARTHRITIS, LEFT HIP SNOMED Code(s): 992086052300643 (2) S/P total hip arthroplasty Current Visit: Yes Status: Acute Code(s): Z96.649 - PRESENCE OF UNSPECIFIED ARTIFICIAL HIP JOINT SNOMED Code(s): 051892648021 Plan: Continue routine postop care and pain control. Continue anticoagulation with Xarelto. Weightbearing as tolerated with a walker. Leave dressing in place for 7 days. Appreciate input from internal medicine. Anticipate discharge home with homecare in the next 24-48 hours.
[2023-11-02] MEDS: PANTOPRAZOLE 40 MG TABLET PO SCH (16:23)
[2023-11-02] MEDS: MONTELUKAST 10 MG TAB PO SCH (20:23)
[2023-11-02] MEDS: tiZANidine 4 MG TAB PO PRN (21:29)
[2023-11-02] MEDS: clonazePAM 0.5 MG TAB PO PRN (21:29)
[2023-11-02] MEDS: OXYBUTYNIN 15 MG TAB.ER.24 PO SCH (21:29)
[2023-11-02] MEDS: ESCITALOPRAM 10 MG TAB PO SCH (21:29)
--- NOTE | 2023-11-02 23:00 | P.CONS ---
History of Present Illness - Reason for Consult Consult date: 11/02/23 Medical management - Chief Complaint Left hip surgery - History of Present Illness Patient is a 43-year-old female with a past medical history of lupus, Paige malformation with LOAN ADMINISTRATOR shunt, migraine headaches, POTS syndrome, IBS, interstitial cystitis, ADD/ADHD, anxiety and depression and fibromyalgia, asthma was admitted to the hospital for left total hip arthroplasty with direct anterior approach. Patient is status post surgery. Currently able to sit in the recliner. Pain is controlled. No complaints of chest pain or shortness of breath. No nausea or vomiting. Was able to participate with PT OT and able to walk with walker. Denied any chest pain or shortness of breath. No nausea vomiting abdominal pain or diarrhea. Tolerating oral diet. Laboratory data showed WBC 8.4 hemoglobin 10.2 and platelets 209 Review of Systems Constitutional: Patient denies any fever or chills . No generalized weakness or weight loss. Abdomen: Patient denied nausea vomiting and diarrhea and abdominal pain. Cardiovascular: Patient denies any chest pain or short of breath no palpitations. Respiratory: patient denied any cough is from production. No shortness of breat h Neurologic: Patient denied any numbness or tingling headache. Musculoskeletal: Patient denies any complaints of joint swelling or deformity. Skin: Negative Psychiatric: Negative Endocrine: No heat or cold intolerance. No recent weight gain. Genitourinary: No dysuria or hematuria. All other 14 point ROS negative except the above Past Medical History Past Medical History: Asthma, Chest Pain / Angina, Fibromyalgia, GERD/Reflux, Hyperlipidemia, Liver Disease, Neurologic Disorder, Rheumatoid Arthritis (RA) Additional Past Medical History / Comment(s): PSORIATIC ARTHRITIS. POTS. Chiari malformation with LOAN ADMINISTRATOR shunt. Migraines. IBS. Lupus. OCCASIONAL DIZZINESS, IRREGULAR HEART RATE. HX POLYNEPHRITIS. Non-alcoholic fatty liver. History of Any Multi-Drug Resistant Organisms: None Reported Past Surgical History: Bladder Surgery, Hysterectomy, Orthopedic Surgery, Tonsillectomy, Tubal Ligation Additional Past Surgical History / Comment(s): Chiari decompression, shunt to brain, brain surgery X5, bladder suspension, bladder lift partial hysterectomy, uterus lift, bilateral carpal tunnel. Past Anesthesia/Blood Transfusion Reactions: No Reported Reaction Past Psychological History: ADD/ADHD, Anxiety, Depression Additional Psychological History / Comment(s): ADD. Smoking Status: Never smoker Past Alcohol Use History: None Reported Past Drug Use History: None Reported - Past Family History Mother Family Medical History: No Reported History Father Family Medical History: Unable to Obtain Medications and Allergies Home Medications Medication Instructions Recorded Confirmed Type Montelukast Sodium [Singulair] 10 mg PO HS 08/13/18 11/01/23 History oxyCODONE-APAP 10-325MG [Percocet 1 tab PO 5XD 08/13/18 11/01/23 History 10-325 mg] Dicyclomine [Bentyl] 10 mg PO QID PRN 02/17/21 11/01/23 History Famotidine [Pepcid] 20 mg PO BID 02/17/21 11/01/23 History Rimegepant Sulfate [Nurtec Odt] 75 mg PO DAILY PRN 02/17/21 11/01/23 History Erenumab-Aooe [Aimovig 140 mg SQ Q30D 08/04/21 11/01/23 History Autoinjector] Metoprolol Tartrate [Lopressor] 25 mg PO HS 10/21/22 11/01/23 History clonazePAM 2 mg PO HS 10/21/22 11/01/23 History medroxyPROGESTERone [Depo-Provera] 150 mg IM Q90D 10/21/22 11/01/23 History Aspirin EC [Ecotrin Low Dose] 81 mg PO DAILY 11/22/22 11/01/23 History Nitroglycerin Sl Tabs [Nitrostat] 0.4 mg SUBLINGUAL Q5M PRN 11/22/22 11/01/23 History Oxybutynin ER [Ditropan XL] 15 mg PO HS 11/22/22 11/01/23 History diphenhydrAMINE HCL [Benadryl] 25 mg PO HS 11/22/22 11/01/23 History Cholecalciferol [Vitamin D3 (25 25 mcg PO DAILY 01/25/23 11/01/23 History Mcg = 1000 Iu)] Atorvastatin [Lipitor] 40 mg PO DAILY 08/05/23 11/01/23 History Hydrocortisone Cream 1 applic TOPICAL HS 08/05/23 11/01/23 History [Hydrocortisone 2.5% Cream] Lisdexamfetamine Dimesylate 60 mg PO DAILY 08/05/23 11/01/23 History [Vyvanse] Nystatin 100,000 Unit/ml Susp 4 ml PO QID PRN 08/05/23 11/01/23 History [Mycostatin Oral Susp] Pantoprazole [Protonix] 40 mg PO QID 08/05/23 11/01/23 History Zolpidem Tartrate [Ambien] 5 mg PO HS 08/05/23 11/01/23 History metroNIDAZOLE 0.75% CREAM 1 applic TOPICAL DAILY 08/05/23 11/01/23 History [Metrocream 0.75%] Albuterol Inhaler [Ventolin Hfa 1 - 2 puff INHALATION Q6H PRN 10/27/23 11/01/23 History Inhaler] Albuterol Nebulized [Ventolin 2.5 mg INHALATION Q6H PRN 10/27/23 11/01/23 History Nebulized] Cetirizine HCl [Zyrtec] 10 mg PO HS 10/27/23 11/01/23 History Clindamycin Gel [Cleocin T 1% Gel] 1 applic TOPICAL BID 10/27/23 11/01/23 History Clobetasol Propionate [Temovate 1 applic TOPICAL HS 10/27/23 11/01/23 History 0.05% Cream] Escitalopram [Lexapro] 10 mg PO HS 10/27/23 11/01/23 History Secukinumab [Cosentyx Pen (2 Pens)] 300 mg SQ Q30D 10/27/23 11/01/23 History tiZANidine [Zanaflex] 4 mg PO TID PRN 10/27/23 11/01/23 History Rivaroxaban [Xarelto] 10 mg PO DAILY #30 tab 11/01/23 Rx Allergies Allergy/AdvReac Type Severity Reaction Status Date / Time ibuprofen [From Motrin] AdvReac Kidney Verified 11/01/23 10:27 Failure metoclopramide HCl AdvReac Hallucinati Verified 11/01/23 10:27 [From Reglan] ons NSAIDS (Non-Steroidal AdvReac Kidney Verified 11/01/23 10:27 Anti-Inflamma Failure pregabalin [From Lyrica] AdvReac Cough Verified 11/01/23 10:27 prochlorperazine AdvReac Hallucinati Verified 11/01/23 10:27 [From Compazine] ons Physical Exam Vitals: Vital Signs Temp Pulse Resp BP BP Pulse Ox 11/02/23 07:33 98.2 F 69 18 110/59 98 11/02/23 01:01 98.0 F 85 15 95/63 96 11/01/23 21:05 98.8 F 106 H 18 141/76 98 11/01/23 17:39 82 91/62 98 11/01/23 17:25 98.0 F 89 16 91/60 97 11/01/23 16:35 91 16 101/59 97 11/01/23 16:05 86 16 92/54 95 11/01/23 15:35 80 16 95/55 98 11/01/23 15:05 70 16 101/62 97 11/01/23 14:50 81 16 101/64 97 11/01/23 14:35 84 16 100/61 97 11/01/23 14:20 71 16 98/59 97 11/01/23 14:05 69 16 94/56 96 11/01/23 13:50 8 L 16 105/60 96 11/01/23 13:35 73 16 104/58 99 11/01/23 13:20 67 16 94/50 98 11/01/23 13:05 96.8 F L 87 16 130/65 99 11/01/23 11:04 61 16 117/68 98 11/01/23 10:06 98 F 55 L 16 113/69 98 Intake and Output 11/01/23 11/02/23 11/02/23 22:59 06:59 14:59 Intake Total 200 Balance 200 Intake: IV 200 Other: Voiding Method Toilet # Voids 1 2 Weight 89.6 kg PHYSICAL EXAMINATION: Patient is lying in the bed comfortably, no acute distress, awake alert and oriented.. HEENT: Normocephalic. Neck is supple. Pupils reactive. Nostrils clear. Oral cavity is moist. Neck reveals no JVD, carotid bruits, or thyromegaly. CHEST EXAMINATION: Trachea is central. Symmetrical expansion. Lung galo clear to auscultation and percussion. CARDIAC: Normal S1, S2 with no gallops. No murmurs ABDOMEN: Soft. Bowel sounds normal. No organomegaly. No abdominal bruits. Extremities: reveal no edema. No clubbing or cyanosis Neurologically awake, alert, oriented x3 with well-coordinated movements. No focal deficits noted Skin: No rash or skin lesions. Psychiatric: Coperative. Nonsuicidal Musculoskeletal: No joint swelling or deformity. Left hip surgical site intact. Results CBC & Chem 7: 11/02/23 05:07 Labs: Abnormal Lab Results - Last 24 Hours (Table) 11/02/23 Range/Units 05:07 RBC 3.41 L (4.10-5.20) X 10*6/uL Hgb 10.2 L (12.0-15.0) g/dL Hct 29.6 L (37.2-46.3) % Eosinophils # 0.01 L (0.04-0.35) X 10*3/uL Assessment and Plan Assessment: Status post left total hip arthroplasty direct anterior approach postoperative day 1 Normocytic anemia with hemoglobin 10.2 Obesity with BMI 36.1 Hyperlipidemia GERD Fibromyalgia Rheumatoid arthritis, Psoriatic arthritis IBS History of migraine headaches Chiari malformation with LOAN ADMINISTRATOR shunt placement Interstitial cystitis SLE Nonalcoholic fatty liver Anxiety/depression ADD/AD HD DVT prophylaxis as per primary team Plan: Patient will be continued on pain management, bowel regimen and encourage incentive spirometry. Continue with home medications including metoprolol and Celexa and Ambien at night. Follow-up CBC. Will continue to follow and further recommendations based on the clinical course. Thank you for your consult. Time with Patient: Greater than 30
[2023-11-03] MEDS: ONDANSETRON 4 MG/2 ML VIAL IVP PRN (06:59)
[2023-11-03] MEDS: ATORVASTATIN 40 MG TAB PO SCH (07:50)
--- NOTE | 2023-11-03 13:55 | P.PN ---
Subjective Progress Note Date: 11/03/23 This is a 43-year-old female who is status post left total hip arthroplasty. This is postoperative day #2 and patient is seen and evaluated at bedside today. Patient states that she is having pain control issues today. Patient states that she has been able to work with physical therapy, but requires assistance. Patient denies any fever/chills, chest pain, shortness breath, abdominal pain, numbness, weakness or tingling. Objective - Vital Signs Vital signs: Vital Signs Temp 99.0 F 11/03/23 07:20 Pulse 80 11/03/23 07:20 Resp 16 11/03/23 07:20 BP 98/62 11/03/23 07:20 Pulse Ox 94 L 11/03/23 07:20 FiO2 Intake & Output 11/02/23 11/03/23 11/03/23 18:59 06:59 18:59 Other: Voiding Method Toilet Toilet Toilet # Voids 2 1 - Exam Vital signs are stable. Patient is in no acute distress and is alert and oriented 3. Calf is soft and nontender to palpation. Dressing is clean, dry, and intact. Patient has full foot and ankle motion without pain or difficulty. Sensation intact. Neurovascular status and circulatory status are intact. - Labs CBC & Chem 7: 11/02/23 05:07 Assessment and Plan (1) Osteoarthritis of left hip Current Visit: Yes Status: Acute Code(s): M16.12 - UNILATERAL PRIMARY OSTEOARTHRITIS, LEFT HIP SNOMED Code(s): 837259661957987 (2) S/P total hip arthroplasty Current Visit: Yes Status: Acute Code(s): Z96.649 - PRESENCE OF UNSPECIFIED ARTIFICIAL HIP JOINT SNOMED Code(s): 142789063325 Plan: Continue routine postop care and pain control. Continue anticoagulation with Xarelto. Weightbearing as tolerated with a walker. Leave dressing in place for 7 days. Appreciate input from internal medicine. Anticipate discharge home with homecare tomorrow.
--- NOTE | 2023-11-04 05:23 | P.PN ---
Subjective Progress Note Date: 11/03/23 - Reason for Consult Consult date: 11/02/23 Medical management - Chief Complaint Left hip surgery - History of Present Illness Patient is a 43-year-old female with a past medical history of lupus, Paige malformation with CAR FERRY CAPTAIN shunt, migraine headaches, POTS syndrome, IBS, interstitial cystitis, ADD/ADHD, anxiety and depression and fibromyalgia, asthma was admitted to the hospital for left total hip arthroplasty with direct anterior approach. Patient is status post surgery. Currently able to sit in the recliner. Pain is controlled. No complaints of chest pain or shortness of breath. No nausea or vomiting. Was able to participate with PT OT and able to walk with walker. Denied any chest pain or shortness of breath. No nausea vomiting abdominal pain or diarrhea. Tolerating oral diet. Laboratory data showed WBC 8.4 hemoglobin 10.2 and platelets 209 11/03/2023 Patient is seen in follow-up and status post left total hip arthroplasty with orthopedics following closely. Patient reports was able to work with physical therapy a little although having intense severe pain currently working on [employer]. Patient does report she takes a number of narcotic medications at home with her previous history and has a high tolerance for pain medications. Adjustments being made per orthopedics. Recommend limiting IV narcotic use. Patient is afebrile with no reported chest pain or shortness of breath. Patient has been tolerating diet and denies nausea or vomiting. Patient reports is passing gas but has not had a bowel movement as of yet. Review of systems: Constitutional: No reports of fatigue, fever, or chills Cardiovascular: No reports of chest pain or palpitations Respiratory: No reports of shortness of breath or cough GI: No reports of nausea, vomiting, or diarrhea, reports passing gas but no bowel movement as of yet : No reports of dysuria or retention Neurovascular: reports of generalized weakness and continued left hip pain All medications have been reviewed PHYSICAL EXAMINATION: Patient is lying in the bed comfortably, no acute distress, awake alert and oriented.. Well-developed, well-nourished, obese HEENT: Normocephalic. Neck is supple. Pupils reactive. Nostrils clear. Oral cavity is moist. Neck reveals no JVD, carotid bruits, or thyromegaly. CHEST EXAMINATION: Trachea is central. Symmetrical expansion. Lung galo clear to auscultation and percussion. CARDIAC: Normal S1, S2 with no gallops. No murmurs ABDOMEN: Soft. Obese, bowel sounds normal. No organomegaly. No abdominal bruits. Extremities: reveal no edema. No clubbing or cyanosis, left hip surgical site is dry and intact Neurologically awake, alert, oriented x3 with well-coordinated movements. No focal deficits noted, diffusely weak Skin: No rash or skin lesions. Psychiatric: Cooperative. Non-suicidal Musculoskeletal: No joint swelling or deformity. Left hip surgical site intact. Assessment: Status post left total hip arthroplasty direct anterior approach postoperative day 2 Normocytic anemia with hemoglobin 10.2 Obesity with BMI 36.1 Hyperlipidemia GERD Fibromyalgia history Rheumatoid arthritis history Psoriatic arthritis IBS History of migraine headaches Chiari malformation with CAR FERRY CAPTAIN shunt placement Interstitial cystitis history SLE Nonalcoholic fatty liver Anxiety/depression ADD/AD HD DVT prophylaxis as per primary team GI prophylaxis Full code Plan: Patient will be continued on pain management per orthopedics Continue bowel regimen and encourage incentive spirometry at least 10 times every hour while awake. Appropriate home medications have been reviewed and resumed Recommend limiting IV narcotic use is much as possible Recommend PT/OT therapy daily and increased activity as tolerated. Orthopedics currently working on pain management regimen to consider discharge planning We will continue to follow with orthopedics during hospitalization. Thank you kindly for this consultation. The impression and plan of care has been dictated by Kaylene Ramos, Nurse Practitioner as directed. Dr. Leo MD I have performed a history and examination and MDM of this patient, discussed the same with the dictator, and agree with the dictator's assessment and plan as written ,documented as a scribe. Based on total visit time, I have performed more than 50% of the visit. Objective - Vital Signs Vital signs: Vital Signs Temp 99.3 F 11/04/23 01:04 Pulse 73 11/04/23 01:04 Resp 17 11/04/23 01:04 BP 93/59 11/04/23 01:04 Pulse Ox 99 11/04/23 01:04 FiO2 Intake & Output 11/03/23 11/03/23 11/04/23 06:59 18:59 06:59 Other: Voiding Method Toilet Toilet Toilet # Voids 1 3 1 - Labs CBC & Chem 7: 11/02/23 05:07
--- NOTE | 2023-11-04 09:15 | P.PAINCN ---
History of Present Illness - Reason for Consult Consult date: 11/04/23 - History of Present Illness This is 43 years old female, was admitted to [facility] to have left total hip arthroplasty, and patient had the surgery done 3 days ago, patient had a chronic pain syndrome she has been on chronic opioid use for more than 10 years, secondary to fibromyalgia, lupus Arnold-Chiari malformation, and migraine headache, and interstitial cystitis, patient been on chronic use of Per cocet 10/325 for several years, and Zanaflex 4 mg 3 times daily, her pain was managed to some degree, currently after the total hip arthroplasty, complaining of increased pain, mostly in the left hip area, it is constant, went to get her from doing physical therapy or doing any activity, denies any nausea or vomiting Review of Systems Constitutional: Patient denies any fever or chills . No generalized weakness or weight loss. Abdomen: Patient denied nausea vomiting and diarrhea and abdominal pain. Cardiovascular: Patient denies any chest pain or short of breath no palpitations. Respiratory: patient denied any cough is from production. No shortness of breath Neurologic: Patient denied any numbness or tingling headache. Musculoskeletal: she is complaining of severe left hip pain Skin: Negative Psychiatric: Negative Endocrine: No heat or cold intolerance. No recent weight gain. Genitourinary: No dysuria or hematuria. All other 14 point ROS negative except the above Past Medical History Past Medical History: Asthma, Chest Pain / Angina, Fibromyalgia, GERD/Reflux, Hyperlipidemia, Liver Disease, Neurologic Disorder, Rheumatoid Arthritis (RA) Additional Past Medical History / Comment(s): PSORIATIC ARTHRITIS. POTS. Chiari malformation with NOZZLE OPERATOR shunt. Migraines. IBS. Lupus. OCCASIONAL DIZZINESS, IRREGULAR HEART RATE. HX POLYNEPHRITIS. Non-alcoholic fatty liver. History of Any Multi-Drug Resistant Organisms: None Reported Past Surgical History: Bladder Surgery, Hysterectomy, Orthopedic Surgery, Tonsillectomy, Tubal Ligation Additional Past Surgical History / Comment(s): Chiari decompression, shunt to brain, brain surgery X5, bladder suspension, bladder lift partial hysterectomy, uterus lift, bilateral carpal tunnel. Past Anesthesia/Blood Transfusion Reactions: No Reported Reaction Past Psychological History: ADD/ADHD, Anxiety, Depression Additional Psychological History / Comment(s): ADD. Smoking Status: Never smoker Past Alcohol Use History: None Reported Past Drug Use History: None Reported - Past Family History Mother Family Medical History: No Reported History Father Family Medical History: Unable to Obtain Medications and Allergies Home Medications Medication Instructions Recorded Confirmed Type Montelukast Sodium [Singulair] 10 mg PO HS 08/13/18 11/01/23 History oxyCODONE-APAP 10-325MG [Percocet 1 tab PO 5XD 08/13/18 11/01/23 History 10-325 mg] Dicyclomine [Bentyl] 10 mg PO QID PRN 02/17/21 11/01/23 History Famotidine [Pepcid] 20 mg PO BID 02/17/21 11/01/23 History Rimegepant Sulfate [Nurtec Odt] 75 mg PO DAILY PRN 02/17/21 11/01/23 History Erenumab-Aooe [Aimovig 140 mg SQ Q30D 08/04/21 11/01/23 History Autoinjector] Metoprolol Tartrate [Lopressor] 25 mg PO HS 10/21/22 11/01/23 History clonazePAM 2 mg PO HS 10/21/22 11/01/23 History medroxyPROGESTERone [Depo-Provera] 150 mg IM Q90D 10/21/22 11/01/23 History Aspirin EC [Ecotrin Low Dose] 81 mg PO DAILY 11/22/22 11/01/23 History Nitroglycerin Sl Tabs [Nitrostat] 0.4 mg SUBLINGUAL Q5M PRN 11/22/22 11/01/23 History Oxybutynin ER [Ditropan XL] 15 mg PO HS 11/22/22 11/01/23 History diphenhydrAMINE HCL [Benadryl] 25 mg PO HS 11/22/22 11/01/23 History Cholecalciferol [Vitamin D3 (25 25 mcg PO DAILY 01/25/23 11/01/23 History Mcg = 1000 Iu)] Atorvastatin [Lipitor] 40 mg PO DAILY 08/05/23 11/01/23 History Hydrocortisone Cream 1 applic TOPICAL HS 08/05/23 11/01/23 History [Hydrocortisone 2.5% Cream] Lisdexamfetamine Dimesylate 60 mg PO DAILY 08/05/23 11/01/23 History [Vyvanse] Nystatin 100,000 Unit/ml Susp 4 ml PO QID PRN 08/05/23 11/01/23 History [Mycostatin Oral Susp] Pantoprazole [Protonix] 40 mg PO QID 08/05/23 11/01/23 History Zolpidem Tartrate [Ambien] 5 mg PO HS 08/05/23 11/01/23 History metroNIDAZOLE 0.75% CREAM 1 applic TOPICAL DAILY 08/05/23 11/01/23 History [Metrocream 0.75%] Albuterol Inhaler [Ventolin Hfa 1 - 2 puff INHALATION Q6H PRN 10/27/23 11/01/23 History Inhaler] Albuterol Nebulized [Ventolin 2.5 mg INHALATION Q6H PRN 10/27/23 11/01/23 History Nebulized] Cetirizine HCl [Zyrtec] 10 mg PO HS 10/27/23 11/01/23 History Clindamycin Gel [Cleocin T 1% Gel] 1 applic TOPICAL BID 10/27/23 11/01/23 History Clobetasol Propionate [Temovate 1 applic TOPICAL HS 10/27/23 11/01/23 History 0.05% Cream] Escitalopram [Lexapro] 10 mg PO HS 10/27/23 11/01/23 History Secukinumab [Cosentyx Pen (2 Pens)] 300 mg SQ Q30D 10/27/23 11/01/23 History tiZANidine [Zanaflex] 4 mg PO TID PRN 10/27/23 11/01/23 History Rivaroxaban [Xarelto] 10 mg PO DAILY #30 tab 11/01/23 Rx Allergies Allergy/AdvReac Type Severity Reaction Status Date / Time ibuprofen [From Motrin] AdvReac Kidney Verified 11/01/23 10:27 Failure metoclopramide HCl AdvReac Hallucinati Verified 11/01/23 10:27 [From Reglan] ons NSAIDS (Non-Steroidal AdvReac Kidney Verified 11/01/23 10:27 Anti-Inflamma Failure pregabalin [From Lyrica] AdvReac Cough Verified 11/01/23 10:27 prochlorperazine AdvReac Hallucinati Verified 11/01/23 10:27 [From Compazine] ons Physical Exam Vitals: Vital Signs Temp Pulse Resp BP Pulse Ox 11/04/23 07:43 97.4 F L 73 17 92/63 97 11/04/23 01:04 99.3 F 73 17 93/59 99 11/03/23 19:11 98.0 F 74 16 95/65 99 11/03/23 13:31 98.7 F 71 20 101/65 99 Intake and Output 11/03/23 11/04/23 11/04/23 22:59 06:59 14:59 Other: Voiding Method Toilet # Voids 3 1 Physical Examinations : -Constitutiona : Cooperative , not in acute distress . -HEENT : nech : supple , no Lymphadenopathy , normal thyroid size . : eyes : no ptosis , no icterus, no photophobia . - neurologic : Cranial nerve II to XII intact , no focal neurological deffecit . -psychatric : alert , oriented X 3 , appropriate affect , intact judgment and insight . -Lymphatic : no Lymphadenopathy . - musculoskeltal : Cervical Spine motor stregnth in the deltoid and biceps, normal right side , normal Left side motor stregnth biceps and the wrist extensors normal right side ,normal left side . motor stregnth in the triceps muscle . normal Right side , normal Left side Results CBC & Chem 7: 11/02/23 05:07 Assessment and Plan Plan: Assessment and plan=1-chronic pain syndrome. 2-fibromyalgia. 3-osteoarthritis of the left hip status post total hip arthroplasty. 4-migraine headache. 3-Bvtgsq-[id number] malformation status post repair and NOZZLE OPERATOR shunt, Patient had acute pain on top of her chronic pain, patient was on Percocet 10/325 for more than 10 years for her chronic pain condition, I recommend to start patient on Duragesic patch 25 mcg every 72 ho urs, and continue her current medication Percocet 10/325 every 4 hours, and after acute phase we can adjust her pain medication as tolerated Time with Patient: Less than 30 PQRS Measure Charge Sheet - Pain Location Left Hip Non-Pharmacological Interventions: Darkened Room, Distraction Pharmacological Interventions: PRN Medication PQRS Narrative: Smoking Status Never smoker Blood Pressure [Right Arm 91/60 Sitting] Blood Pressure [Left Arm] 92/63 Pain Intensity [Left Hip] 4 Pain Intensity 4 Pain Scale Used [Left Hip] Numeric (1 - 10) Pain Scale Used Numeric (1 - 10) Scale Used Numeric (1 - 10) Home Medications: Ambulatory Orders Montelukast Sodium [Singulair] 10 mg PO HS 08/13/18 oxyCODONE-APAP 10-325MG [Percocet 10-325 mg] 1 tab PO 5XD 08/13/18 Dicyclomine [Bentyl] 10 mg PO QID PRN 02/17/21 Famotidine [Pepcid] 20 mg PO BID 02/17/21 Rimegepant Sulfate [Nurtec Odt] 75 mg PO DAILY PRN 02/17/21 Erenumab-Aooe [Aimovig Autoinjector] 140 mg SQ Q30D 08/04/21 Metoprolol Tartrate [Lopressor] 25 mg PO HS 10/21/22 clonazePAM 2 mg PO HS 10/21/22 medroxyPROGESTERone [Depo-Provera] 150 mg IM Q90D 10/21/22 Aspirin EC [Ecotrin Low Dose] 81 mg PO DAILY 11/22/22 Nitroglycerin Sl Tabs [Nitrostat] 0.4 mg SUBLINGUAL Q5M PRN 11/22/22 Oxybutynin ER [Ditropan XL] 15 mg PO HS 11/22/22 diphenhydrAMINE HCL [Benadryl] 25 mg PO HS 11/22/22 Cholecalciferol [Vitamin D3 (25 Mcg = 1000 Iu)] 25 mcg PO DAILY 01/25/23 Atorvastatin [Lipitor] 40 mg PO DAILY 08/05/23 Hydrocortisone Cream [Hydrocortisone 2.5% Cream] 1 applic TOPICAL HS 08/05/23 Lisdexamfetamine Dimesylate [Vyvanse] 60 mg PO DAILY 08/05/23 Nystatin 100,000 Unit/ml Susp [Mycostatin Oral Susp] 4 ml PO QID PRN 08/05/23 Pantoprazole [Protonix] 40 mg PO QID 08/05/23 Zolpidem Tartrate [Ambien] 5 mg PO HS 08/05/23 metroNIDAZOLE 0.75% CREAM [Metrocream 0.75%] 1 applic TOPICAL DAILY 08/05/23 Albuterol Inhaler [Ventolin Hfa Inhaler] 1 - 2 puff INHALATION Q6H PRN 10/27/23 Albuterol Nebulized [Ventolin Nebulized] 2.5 mg INHALATION Q6H PRN 10/27/23 Cetirizine HCl [Zyrtec] 10 mg PO HS 10/27/23 Clindamycin Gel [Cleocin T 1% Gel] 1 applic TOPICAL BID 10/27/23 Clobetasol Propionate [Temovate 0.05% Cream] 1 applic TOPICAL HS 10/27/23 Escitalopram [Lexapro] 10 mg PO HS 10/27/23 Secukinumab [Cosentyx Pen (2 Pens)] 300 mg SQ Q30D 10/27/23 tiZANidine [Zanaflex] 4 mg PO TID PRN 10/27/23 Rivaroxaban [Xarelto] 10 mg PO DAILY #30 tab 11/01/23
--- NOTE | 2023-11-04 09:20 | P.PN ---
Subjective Progress Note Date: 11/04/23 Principal diagnosis: Primary osteoarthritis left hip. Status post total left hip arthroplasty. This is a 43-year-old female who is status post total left hip arthroplasty on 11/01/2023. She has continued to have pain management issues postoperatively. She does have history of chronic pain and is on multiple narcotic pain medications at home. Today she states that she feels very tired. She is awaiting evaluation with pain management. Vital signs are stable. Objective - Vital Signs Vital signs: Vital Signs Temp 97.4 F L 11/04/23 07:43 Pulse 73 11/04/23 07:43 Resp 17 11/04/23 07:43 BP 92/63 11/04/23 07:43 Pulse Ox 97 11/04/23 07:43 FiO2 Intake & Output 11/03/23 11/04/23 11/04/23 18:59 06:59 18:59 Other: Voiding Method Toilet Toilet # Voids 3 1 - Exam This is a 43-year-old female in no acute distress. She is alert and oriented x 3. Exam of the lower extremities reveals that her dressing is clean, dry and intact. She has full foot and ankle motion without difficulty or pain. Neurovascular status to the lower extremities is intact. - Labs CBC & Chem 7: 11/02/23 05:07 Assessment and Plan (1) Osteoarthritis of left hip Current Visit: Yes Status: Acute Code(s): M16.12 - UNILATERAL PRIMARY OSTEOARTHRITIS, LEFT HIP SNOMED Code(s): 508970658260333 (2) Post-op pain Current Visit: Yes Status: Acute Code(s): G89.18 - OTHER ACUTE POSTPRO CEDURAL PAIN SNOMED Code(s): 929996758 (3) S/P total hip arthroplasty Current Visit: Yes Status: Acute Code(s): Z96.649 - PRESENCE OF UNSPECIFIED ARTIFICIAL HIP JOINT SNOMED Code(s): 694467985834 Plan: The clinical findings are discussed with the patient. She is to continue to work with physical therapy. We discussed the possibility of inpatient rehab. We will see how she does today with physical therapy. We are awaiting evaluation with pain management today.
[2023-11-04 10:52] LABS: Basophils # (A) 0.03 X 10*3/uL (0.00-0.10); Basophils % (A) 0.5 %; Eosinophils # (A) 0.24 X 10*3/uL (0.04-0.35); HCT 28.6 % (37.2-46.3); HGB 9.3 g/dL (12.0-15.0); Lymphocytes # (A) 1.86 X 10*3/uL (0.90-5.00); Lymphocytes % (A) 31.1 %; MCH 29.5 pg (27.0-32.0); MCHC 32.5 g/dL (32.0-37.0); MCV 90.8 FL (80.0-97.0); Mean Platelet Volume 10.8 FL (9.5-12.2); Monocytes # (A) 0.44 X 10*3/uL (0.20-1.00); Monocytes % (A) 7.3 %; NRBC Per 100 WBC 0 X 10*3/uL (0.00-0.01); Neutrophils % (A) 56.8 %; Platelet Count 189 X 10*3/uL (140-440); RBC 3.15 X 10*6/uL (4.10-5.20); RDW 12.2 % (11.5-14.5); WBC 5.99 X 10*3/uL (4.50-10.00)
--- NOTE | 2023-11-04 17:05 | P.PN ---
Subjective Progress Note Date: 11/04/23 43-year-old female with a past medical history of lupus, Paige malformation with MOLDING SANDER shunt, migraine headaches, POTS syndrome, IBS, interstitial cystitis, ADD/ADHD, anxiety and depression and fibromyalgia, asthma was admitted to the hospital for left total hip arthroplasty with direct anterior approach. Patient is status post surgery. Currently able to sit in the recliner. Pain is controlled. No complaints of chest pain or shortness of breath. No nausea or vomiting. Was able to participate with PT OT and able to walk with walker. Denied any chest pain or shortness of breath. No nausea vomiting abdominal pain or diarrhea. Tolerating oral diet. Laboratory data showed WBC 8.4 hemoglobin 10.2 and platelets 209 Patient is seen and evaluated with at bedside; continues to report uncontrolled pain; patient has been evaluated by pain management and is recommended to resume home dose of Percocet 10/325 mg every 4 hours as needed and a Duragesic patch 25 mcg every 72 hours -- Has been evaluated by PT and is recommended skilled rehab Objective - Vital Signs Vital signs: Vital Signs Temp 97.4 F L 11/04/23 07:43 Pulse 73 11/04/23 07:43 Resp 17 11/04/23 07:43 BP 92/63 11/04/23 07:43 Pulse Ox 97 11/04/23 07:43 FiO2 Intake & Output 11/03/23 11/04/23 11/04/23 18:59 06:59 18:59 Intake Total 118 Balance 118 Intake: Oral 118 Other: Voiding Method Toilet Toilet # Voids 3 1 - Exam Patient is lying in the bed comfortably, no acute distress, awake alert and oriented.. Well-developed, well-nourished, obese HEENT: Normocephalic. Neck is supple. Pupils reactive. Nostrils clear. Oral cavity is moist. Neck reveals no JVD, carotid bruits, or thyromegaly. CHEST EXAMINATION: Trachea is central. Symmetrical expansion. Lung galo clear to auscultation and percussion. CARDIAC: Normal S1, S2 with no gallops. No murmurs ABDOMEN: Soft. Obese, bowel sounds normal. No organomegaly. No abdominal bruits. Extremities: reveal no edema. No clubbing or cyanosis, left hip surgical site is dry and intact Neurologically awake, alert, oriented x3 with well-coordinated movements. No focal deficits noted, diffusely weak Skin: No rash or skin lesions. Psychiatric: Cooperative. Non-suicidal Musculoskeletal: No joint swelling or deformity. Left hip surgical site intact. - Labs CBC & Chem 7: 11/04/23 07:01 Labs: Abnormal Lab Results - Last 24 Hours (Table) 11/04/23 Range/Units 07:01 RBC 3.15 L (4.10-5.20) X 10*6/uL Hgb 9.3 L (12.0-15.0) g/dL Hct 28.6 L (37.2-46.3) % Assessment and Plan Assessment: Status post left total hip arthroplasty direct anterior approach postoperative day 2 Normocytic anemia with hemoglobin 10.2 Obesity with BMI 36.1 Hyperlipidemia GERD Fibromyalgia history Rheumatoid arthritis history Psoriatic arthritis IBS History of migraine headaches Chiari malformation with MOLDING SANDER shunt placement Interstitial cystitis history SLE Nonalcoholic fatty liver Anxiety/depression ADD/AD HD DVT prophylaxis as per primary team GI prophylaxis Full code Plan: Patient will be continued on pain management per orthopedics Continue bowel regimen and encourage incentive spirometry at least 10 times every hour while awake. Appropriate home medications have been reviewed and resumed Recommend limiting IV narcotic use is much as possible Recommend PT/OT therapy daily and increased activity as tolerated. Orthopedics currently working on pain management regimen to consider discharge planning We will continue to follow with orthopedics during hospitalization. Thank you kindly for this consultation.
[2023-11-05 09:45] LABS: BUN/Creat Ratio 15.88 Ratio (12.00-20.00); Blood Urea Nitrogen 12.7 mg/dL (9.0-27.0); Calcium 8.4 mg/dL (8.7-10.3); Carbon Dioxide 24.2 mmol/L (21.6-31.8); Chloride 105 mmol/L (96-109); Glucose 101 mg/dL (70-110); Potassium 3.8 mmol/L (3.5-5.5); Sodium 140 mmol/L (135-145)
--- NOTE | 2023-11-05 10:19 | P.PN ---
Progress Note - Text Progress Note Date: 11/05/23 Orthopedics: History of present illness: Patient is a pleasant 43-year-old female who is seen and examined at bedside for follow-up evaluation. She is status post left total hip arthroplasty performed by Dr. Cristiano Wheeler on 11/01/2023. She continues to have difficulty with pain control. She has been able to mobilize to the restroom and throughout the room and with physical therapy with the assistance of a walker. She states she continues to have pain at her left hip. Her pain is most significant in the evening. She is good range of motion of her left foot and ankle. Her left calf is soft. She is currently planning for discharge to rehabilitation facility this coming 11/07/2023. She has no other complaints at the bedside. Patient is known to have chronic pain and difficulty with pain control. She was seen by Dr. Hale in pain management who has been helping to manage her medications. Patient has been utilizing Percocet 10 mg / 325 mg every 4 hours and Duragesic patch. We discussed in detail that orthopedics would not manage her narcotic pain regimen and that could be managed by pain management or her primary care. Patient is known to have a pain contract with a medical provider in [place], [place]. Patient is known to have significant multiple other medical diagnoses and continues to be seen and examined by medicine. She is on long-term anticoagulation with Xarelto. Physical Exam Total Hip Arthroplasty: Status post surgical day number 4 Patient is examined lying in bed Patient is awake and alert, and oriented 3 Vital signs stable Good chest excursion with deep inspiration and expiration No signs or symptoms of DVT; no calf pain Lower extremity cuffs not currently in place bilaterally Dressing of the left hip is clean, dry, and intact; no erythema, purulence, or signs of infection Some generalized pain with palpation around the surgical site of the left hip Full range of motion of ankles bilaterally Dorsiflexion, plantarflexion, and extensor hallucis longus positive sustained on the left Neurovascularly intact bilateral lower extremities Assessment: Status post left total hip arthroplasty performed on 11/01/2023 Left hip pain Difficulty with mobilization due to hip pain Chronic pain Fibromyalgia Hyperlipidemia Obesity History of rheumatoid arthritis History of psoriatic arthritis Chiari malformation with PATROL SUPERVISOR shunt placement History of interstitial cystitis IBS Nonalcoholic fatty liver Plan: 1. Patient to continue to be weight-bear as tolerated on the left lower extremity; patient may work with physical therapy to increase mobility and ambulation 2. Continue pain control with medications as prescribed by pain management and/or medicine 3. Medicine to continue following the patient for their other medical diagnoses 4. Continue with with anticoagulation therapy with Xarelto 5. We'll continue to follow the patient; Patient will remain in the hospital over the weekend with plans to discharge to a rehab facility this coming 11/07/2023, once cleared by medicine 6. Patient can follow-up with Dr. Cristiano Wheeler or Ginny Wilkins PA-C at [facility] in 2-3 weeks following discharge
[2023-11-05] MEDS: ALBUTEROL NEBULIZED 2.5 MG/3 ML INHALATION PRN (11:45)
--- NOTE | 2023-11-05 15:07 | P.PN ---
Subjective Progress Note Date: 11/05/23 43-year-old female with a past medical history of lupus, Paige malformation with MEDICAL CLAIMS PROCESSOR shunt, migraine headaches, POTS syndrome, IBS, interstitial cystitis, ADD/ADHD, anxiety and depression and fibromyalgia, asthma was admitted to the hospital for left total hip arthroplasty with direct anterior approach. Patient is status post surgery. Currently able to sit in the recliner. Pain is controlled. No complaints of chest pain or shortness of breath. No nausea or vomiting. Was able to participate with PT OT and able to walk with walker. Denied any chest pain or shortness of breath. No nausea vomiting abdominal pain or diarrhea. Tolerating oral diet. Laboratory data showed WBC 8.4 hemoglobin 10.2 and platelets 209 Patient is seen and evaluated with at bedside; continues to report uncontrolled pain; patient has been evaluated by pain management and is recommended to resume home dose of Percocet 10/325 mg every 4 hours as needed and a Duragesic patch 25 mcg every 72 hours -- Has been evaluated by PT and is recommended skilled rehab 24-hour interval change 11/05/2023 Patient is seen and evaluated in room at bedside; continues to report uncontrolled pain seen in the past was okay Vital signs are reviewed and remained stable Vital signs reviewed reveal sodium 140, potassium 3.8, BUNs/creatinine of 12.7/creatinine 0.8 Orthopedic recommending to continue weight bearing as tolerated to left lower extremity; patient to continue with some physical therapy and increase ambulation --Has been placed on anticoagulation with Xarelto -- Plan is for patient to be discharged to rehab once arrangements are made on Tuesday Follow-up with orthopedic surgery in 2 to 3 weeks Objective - Vital Signs Vital signs: Vital Signs Temp 98.1 F 11/05/23 07:06 Pulse 65 11/05/23 08:40 Resp 16 11/05/23 08:40 BP 114/61 11/05/23 07:06 Pulse Ox 98 11/05/23 07:06 FiO2 Intake & Output 11/04/23 11/05/23 11/05/23 18:59 06:59 18:59 Intake Total 236 Balance 236 Intake: Oral 236 Other: Voiding Method Toilet # Voids 2 - Exam Patient is lying in the bed comfortably, no acute distress, awake alert and oriented.. Well-developed, well-nourished, obese HEENT: Normocephalic. Neck is supple. Pupils reactive. Nostrils clear. Oral cavity is moist. Neck reveals no JVD, carotid bruits, or thyromegaly. CHEST EXAMINATION: Trachea is central. Symmetrical expansion. Lung galo clear to auscultation and percussion. CARDIAC: Normal S1, S2 with no gallops. No murmurs ABDOMEN: Soft. Obese, bowel sounds normal. No organomegaly. No abdominal bruits. Extremities: reveal no edema. No clubbing or cyanosis, left hip surgical site is dry and intact Neurologically awake, alert, oriented x3 with well-coordinated movements. No focal deficits noted, diffusely weak Skin: No rash or skin lesions. Psychiatric: Cooperative. Non-suicidal Musculoskeletal: No joint swelling or deformity. Left hip surgical site intact. - Labs CBC & Chem 7: 11/04/23 07:01 11/05/23 04:26 Labs: Abnormal Lab Results - Last 24 Hours (Table) 11/04/23 11/05/23 Range/Units 07:01 04:26 RBC 3.15 L (4.10-5.20) X 10*6/uL Hgb 9.3 L (12.0-15.0) g/dL Hct 28.6 L (37.2-46.3) % Calcium 8.4 L (8.7-10.3) mg/dL Assessment and Plan Assessment: Status post left total hip arthroplasty direct anterior approach postoperative day 2 Normocytic anemia with hemoglobin 10.2 Obesity with BMI 36.1 Hyperlipidemia GERD Fibromyalgia history Rheumatoid arthritis history Psoriatic arthritis IBS History of migraine headaches Chiari malformation with MEDICAL CLAIMS PROCESSOR shunt placement Interstitial cystitis history SLE Nonalcoholic fatty liver Anxiety/depression ADD/AD HD DVT prophylaxis as per primary team GI prophylaxis Full code Plan: Patient will be continued on pain management per orthopedics Continue bowel regimen and encourage incentive spirometry at least 10 times every hour while awake. Appropriate home medications have been reviewed and resumed Recommend limiting IV narcotic use is much as possible Recommend PT/OT therapy daily and increased activity as tolerated. Orthopedics currently working on pain management regimen to consider discharge planning We will continue to follow with orthopedics during hospitalization. Thank you kindly for this consultation.
--- NOTE | 2023-11-06 10:09 | P.PN ---
Progress Note - Text Progress Note Date: 11/06/23 Orthopedics: History of present illness: Patient is a pleasant 43-year-old female who is seen and examined at bedside for follow-up evaluation. She is status post left total hip arthroplasty performed by Dr. Cristiano Wheeler on 11/01/2023. She has not had any change as compared to yesterday. She continues to have difficulty with pain control. She has been able to mobilize to the restroom and throughout the room and with physical therapy with the assistance of a walker. She states she continues to have pain at her left hip. Her pain is most significant in the evening. She is good range of motion of her left foot and ankle. Her left calf is soft. She is currently planning for discharge to rehabilitation facility this coming 11/07/2023. She has no other complaints at the bedside. Patient is known to have chronic pain and difficulty with pain control. She was seen by Dr. Hale in pain management who has been helping to manage her medications. Patient has been utilizing Percocet 10 mg / 325 mg every 4 hours and Duragesic patch. We discussed in detail that orthopedics would not manage her narcotic pain regimen and that could be managed by pain management or her primary care. Patient is known to have a pain contract with a medical provider in [place], [place]. Patient is known to have significant multiple other medical diagnoses and continues to be seen and examined by medicine. She is on long-term ant icoagulation with Xarelto. Physical Exam Total Hip Arthroplasty: Status post surgical day number 5 Patient is examined lying in bed Patient is awake and alert, and oriented 3 Vital signs stable Good chest excursion with deep inspiration and expiration No signs or symptoms of DVT; no calf pain Lower extremity cuffs not currently in place bilaterally Dressing of the left hip is clean, dry, and intact; no erythema, purulence, or signs of infection Some generalized pain with palpation around the surgical site of the left hip Full range of motion of ankles bilaterally Dorsiflexion, plantarflexion, and extensor hallucis longus positive sustained on the left Neurovascularly intact bilateral lower extremities Assessment: Status post left total hip arthroplasty performed on 11/01/2023 Left hip pain Difficulty with mobilization due to hip pain Chronic pain Fibromyalgia Hyperlipidemia Obesity History of rheumatoid arthritis History of psoriatic arthritis 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 1. Patient to continue to be weight-bear as tolerated on the left lower extremity; patient may work with physical therapy to increase mobility and ambulation 2. Continue pain control with medications as prescribed by pain management and/or medicine 3. Medicine to continue following the patient for their other medical diagnoses 4. Continue with with anticoagulation therapy with Xarelto 5. We'll continue to follow the patient; Patient will remain in the hospital over the weekend with plans to discharge to a rehab facility this coming 11/07/2023, once cleared by medicine. If the patient is able to have a good regimen of pain control at the time of discharge, she would consider discharge home. She states if discharged home, she will need an above seat toilet riser. However, she does feel she might need some rehab just to increase her mobility and ambulation prior to returning home. 6. Patient can follow-up with Dr. Cristiano Wheeler or Ginny Wilkins PA-C at [facility] in 2-3 weeks following discharge
[2023-11-06 10:55] LABS: Basophils # (A) 0.03 X 10*3/uL (0.00-0.10); Basophils % (A) 0.5 %; Eosinophils # (A) 0.23 X 10*3/uL (0.04-0.35); Eosinophils % (A) 3.8 %; HCT 28.2 % (37.2-46.3); HGB 9.4 g/dL (12.0-15.0); Lymphocytes # (A) 1.71 X 10*3/uL (0.90-5.00); Lymphocytes % (A) 28.5 %; MCH 29.6 pg (27.0-32.0); MCHC 33.3 g/dL (32.0-37.0); MCV 88.7 FL (80.0-97.0); Mean Platelet Volume 9.9 FL (9.5-12.2); Monocytes % (A) 8.3 %; NRBC Per 100 WBC 0 X 10*3/uL (0.00-0.01); Neutrophils % (A) 58.2 %; Platelet Count 269 X 10*3/uL (140-440); RBC 3.18 X 10*6/uL (4.10-5.20); RBC Morphology Normal (Normal); RDW 12.1 % (11.5-14.5); WBC 6.01 X 10*3/uL (4.50-10.00)
[2023-11-06] MEDS: MAGNESIUM HYDROXIDE 2,400 MG/30 ML CUP PO PRN (12:19)
--- NOTE | 2023-11-06 14:52 | P.PN ---
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 Patient is status post surgery. Currently able to sit in the recliner. Pain is controlled. No complaints of chest pain or shortness of breath. No nausea or vomiting. Was able to participate with PT OT and able to walk with walker. Denied any chest pain or shortness of breath. No nausea vomiting abdominal pain or diarrhea. Tolerating oral diet. Laboratory data showed WBC 8.4 hemoglobin 10.2 and platelets 209 Patient is seen and evaluated with at bedside; continues to report uncontrolled pain; patient has been evaluated by pain management and is recommended to resume home dose of Percocet 10/325 mg every 4 hours as needed and a Duragesic patch 25 mcg every 72 hours -- Has been evaluated by PT and is recommended skilled rehab 24-hour interval change 11/05/2023 Patient is seen and evaluated in room at bedside; continues to report uncontrolled pain seen in the past was okay Vital signs are reviewed and remained stable Vital signs reviewed reveal sodium 140, potassium 3.8, BUNs/creatinine of 12.7/creatinine 0.8 Orthopedic recommending to continue weight bearing as tolerated to left lower extremity; patient to continue with some physical therapy and increase ambulation --Has been placed on anticoagulation with Xarelto -- Plan is for patient to be discharged to rehab once arrangements are made on Tuesday Follow-up with orthopedic surgery in 2 to 3 weeks 11/06/2023 Patient is seen and evaluated ambulating in the room; still reports uncontrolled pain; is being followed by pain management and is placed on a fentanyl patch Vital signs are reviewed and are stable Patient remains on anticoagulation for DVT prophylaxis --Plan to be discharged to short-term skilled rehab Medically stable for discharge when arrangements are made Objective - Vital Signs Vital signs: Vital Signs Temp 98.4 F 11/06/23 07:13 Pulse 68 11/06/23 09:24 Resp 18 11/06/23 07:41 BP 98/71 11/06/23 07:13 Pulse Ox 96 11/06/23 07:13 FiO2 Intake & Output 11/05/23 11/06/23 11/06/23 18:59 06:59 18:59 Intake Total 480 Balance 480 Intake: Oral 480 Other: Voiding Method Toilet Toilet # Voids 2 3 - Exam Patient is lying in the bed comfortably, no acute distress, awake alert and o riented.. Well-developed, well-nourished, obese HEENT: Normocephalic. Neck is supple. Pupils reactive. Nostrils clear. Oral cavity is moist. Neck reveals no JVD, carotid bruits, or thyromegaly. CHEST EXAMINATION: Trachea is central. Symmetrical expansion. Lung galo clear to auscultation and percussion. CARDIAC: Normal S1, S2 with no gallops. No murmurs ABDOMEN: Soft. Obese, bowel sounds normal. No organomegaly. No abdominal bruits. Extremities: reveal no edema. No clubbing or cyanosis, left hip surgical site is dry and intact Neurologically awake, alert, oriented x3 with well-coordinated movements. No focal deficits noted, diffusely weak Skin: No rash or skin lesions. Psychiatric: Cooperative. Non-suicidal Musculoskeletal: No joint swelling or deformity. Left hip surgical site intact. - Labs CBC & Chem 7: 11/06/23 05:06 11/05/23 04:26 Labs: Abnormal Lab Results - Last 24 Hours (Table) 11/06/23 Range/Units 05:06 RBC 3.18 L (4.10-5.20) X 10*6/uL Hgb 9.4 L (12.0-15.0) g/dL Hct 28.2 L (37.2-46.3) % Assessment and Plan Assessment: Status post left total hip arthroplasty direct anterior approach postoperative day 2 Normocytic anemia with hemoglobin 10.2 Obesity with BMI 36.1 Hyperlipidemia GERD Fibromyalgia history Rheumatoid arthritis history Psoriatic arthritis IBS History of migraine headaches Chiari malformation with RAW STOCK DYEING MACHINE TENDER shunt placement Interstitial cystitis history SLE Nonalcoholic fatty liver Anxiety/depression ADD/AD HD DVT prophylaxis as per primary team GI prophylaxis Full code Plan: Patient will be continued on pain management per orthopedics Continue bowel regimen and encourage incentive spirometry at least 10 times every hour while awake. Appropriate home medications have been reviewed and resumed Recommend limiting IV narcotic use is much as possible Recommend PT/OT therapy daily and increased activity as tolerated. Orthopedics currently working on pain management regimen to consider discharge planning We will continue to follow with orthopedics during hospitalization. Thank you kindly for this consultation.
[2023-11-07 02:53] VITALS: TEMP 97.9
[2023-11-07 07:46] VITALS: BP 129/69; PULSE 78
--- NOTE | 2023-11-07 09:08 | P.DS ---
Providers Date of admission: 11/03/23 13:36 Expected date of discharge: 11/07/23 Attending physician: Cristiano Wheeler Consults: 11/01/23 13:06 Consult Physician Routine Consulting Provider: Lin Lema Consult Reason/Comments: medical management Do you want consulting provider notified?: Yes Primary care physician: Santosh Mccord - Discharge Diagnosis(es) (1) Osteoarthritis of left hip Current Visit: Yes Status: Acute (2) S/P total hip arthroplasty Current Visit: Yes Status: Acute Hospital Course: This is a 43-year-old female with known history of degenerative arthritis of the left hip. The patient presented for evaluation as an outpatient. After discussion and consideration patient elects to proceed with total hip arthroplasty. The patient is seen preoperatively by Dr. Wheeler and medically cleared for surgery by their primary care physician. Patient is admitted to [facility] on 11/01/2023 for total hip arthroplasty. The procedure is performed without complication or sequelae. The patient is doing well postoperatively. Labs and vital signs are stable on day of discharge. Patient has been evaluated by pain management during this admission and they will manage postoperative pain medication. Patient follows regularly with a pain management physician as an outpatient. On day of discharge patient's hip incision is healing well. There is minimal erythema. There is no drainage noted at this time. There is minimal soft tissue swelling to the hip and thigh. Patient has full foot and ankle motion without difficulty or pain. Calf is soft and nontender to palpation. Neurovascular status to the left lower extremity is intact. Patient is discharged to rehab in good condition. Please see med rec for accurate list of home medications. Plan - Discharge Summary Discharge Rx Participant: Yes New Discharge Prescriptions: New Rivaroxaban [Xarelto] 10 mg PO DAILY #30 tab No Action Montelukast Sodium [Singulair] 10 mg PO HS oxyCODONE-APAP 10-325MG [Percocet 10-325 mg] 1 tab PO 5XD Dicyclomine [Bentyl] 10 mg PO QID PRN PRN Reason: IBS Erenumab-Aooe [Aimovig Autoinjector] 140 mg SQ Q30D medroxyPROGESTERone [Depo-Provera] 150 mg IM Q90D Aspirin EC [Ecotrin Low Dose] 81 mg PO DAILY Cholecalciferol [Vitamin D3 (25 Mcg = 1000 Iu)] 25 mcg PO DAILY Nystatin 100,000 Unit/ml Susp [Mycostatin Oral Susp] 4 ml PO QID PRN PRN Reason: Yeast Infection Albuterol Inhaler [Ventolin Hfa Inhaler] 1 - 2 puff INHALATION Q6H PRN PRN Reason: Shortness Of Breath Clindamycin Gel [Cleocin T 1% Gel] 1 applic TOPICAL BID Secukinumab [Cosentyx Pen (2 Pens)] 300 mg SQ Q30D Clobetasol Propionate [Temovate 0.05% Cream] 1 applic TOPICAL HS Famotidine [Pepcid] 20 mg PO BID Rimegepant Sulfate [Nurtec Odt] 75 mg PO DAILY PRN PRN Reason: Migraine Headache clonazePAM 2 mg PO HS Metoprolol Tartrate [Lopressor] 25 mg PO HS diphenhydrAMINE HCL [Benadryl] 25 mg PO HS Nitroglycerin Sl Tabs [Nitrostat] 0.4 mg SUBLINGUAL Q5M PRN PRN Reason: Chest Pain Oxybutynin ER [Ditropan XL] 15 mg PO HS Zolpidem Tartrate [Ambien] 5 mg PO HS Atorvastatin [Lipitor] 40 mg PO DAILY Pantoprazole [Protonix] 40 mg PO QID metroNIDAZOLE 0.75% CREAM [Metrocream 0.75%] 1 applic TOPICAL DAILY Lisdexamfetamine Dimesylate [Vyvanse] 60 mg PO DAILY Hydrocortisone Cream [Hydrocortisone 2.5% Cream] 1 applic TOPICAL HS Escitalopram [Lexapro] 10 mg PO HS tiZANidine [Zanaflex] 4 mg PO TID PRN PRN Reason: Pain Cetirizine HCl [Zyrtec] 10 mg PO HS Albuterol Nebulized [Ventolin Nebulized] 2.5 mg INHALATION Q6H PRN PRN Reason: Shortness Of Breath Discharge Medication List Montelukast Sodium [Singulair] 10 mg PO HS 08/13/18 [History] oxyCODONE-APAP 10-325MG [Percocet 10-325 mg] 1 tab PO 5XD 08/13/18 [History] Dicyclomine [Bentyl] 10 mg PO QID PRN 02/17/21 [History] Famotidine [Pepcid] 20 mg PO BID 02/17/21 [History] Rimegepant Sulfate [Nurtec Odt] 75 mg PO DAILY PRN 02/17/21 [History] Erenumab-Aooe [Aimovig Autoinjector] 140 mg SQ Q30D 08/04/21 [History] Metoprolol Tartrate [Lopressor] 25 mg PO HS 10/21/22 [History] clonazePAM 2 mg PO HS 10/21/22 [History] medroxyPROGESTERone [Depo-Provera] 150 mg IM Q90D 10/21/22 [History] Aspirin EC [Ecotrin Low Dose] 81 mg PO DAILY 11/22/22 [History] Nitroglycerin Sl Tabs [Nitrostat] 0.4 mg SUBLINGUAL Q5M PRN 11/22/22 [History] Oxybutynin ER [Ditropan XL] 15 mg PO HS 11/22/22 [History] diphenhydrAMINE HCL [Benadryl] 25 mg PO HS 11/22/22 [History] Cholecalciferol [Vitamin D3 (25 Mcg = 1000 Iu)] 25 mcg PO DAILY 01/25/23 [History] Atorvastatin [Lipitor] 40 mg PO DAILY 08/05/23 [History] Hydrocortisone Cream [Hydrocortisone 2.5% Cream] 1 applic TOPICAL HS 08/05/23 [History] Lisdexamfetamine Dimesylate [Vyvanse] 60 mg PO DAILY 08/05/23 [History] Nystatin 100,000 Unit/ml Susp [Mycostatin Oral Susp] 4 ml PO QID PRN 08/05/23 [History] Pantoprazole [Protonix] 40 mg PO QID 08/05/23 [History] Zolpidem Tartrate [Ambien] 5 mg PO HS 08/05/23 [History] metroNIDAZOLE 0.75% CREAM [Metrocream 0.75%] 1 applic TOPICAL DAILY 08/05/23 [History] Albuterol Inhaler [Ventolin Hfa Inhaler] 1 - 2 puff INHALATION Q6H PRN 10/27/23 [History] Albuterol Nebulized [Ventolin Nebulized] 2.5 mg INHALATION Q6H PRN 10/27/23 [History] Cetirizine HCl [Zyrtec] 10 mg PO HS 10/27/23 [History] Clindamycin Gel [Cleocin T 1% Gel] 1 applic TOPICAL BID 10/27/23 [History] Clobetasol Propionate [Temovate 0.05% Cream] 1 applic TOPICAL HS 10/27/23 [History] Escitalopram [Lexapro] 10 mg PO HS 10/27/23 [History] Secukinumab [Cosentyx Pen (2 Pens)] 300 mg SQ Q30D 10/27/23 [History] tiZANidine [Zanaflex] 4 mg PO TID PRN 10/27/23 [History] Rivaroxaban [Xarelto] 10 mg PO DAILY #30 tab 11/01/23 [Rx] Follow up Appointment(s)/Referral(s): Cristiano Wheeler DO [Doctor of Osteopathic Medicine] - 11/17/23 1:30 pm (With Ginny) Activity/Diet/Wound Care/Special Instructions: Weightbearing as tolerated with walker. Leave dressing intact. Dressing may be removed by home care nurse or by patient in 7 days. Then change dressing twice daily until follow up. May shower with initial dressing intact and after removal. If dressing become saturated, please remove. Please take Xarelto daily for 30 days to prevent blood clots. Postop pain management per pain management physician. Recommend use of compression stockings daily until follow up to help prevent swelling and blood clots. May remove at night before sleeping. Please follow[facility] with [facility] and call with any questions or concerns, . Discharge Disposition: TRANSFER TO SNF/ECF
[2023-11-07 10:03] VITALS: RESP 18
--- NOTE | 2023-11-08 03:06 | P.PN ---
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 Patient is status post surgery. Currently able to sit in the recliner. Pain is controlled. No complaints of chest pain or shortness of breath. No nausea or vomiting. Was able to participate with PT OT and able to walk with walker. Denied any chest pain or shortness of breath. No nausea vomiting abdominal pain or diarrhea. Tolerating oral diet. Laboratory data showed WBC 8.4 hemoglobin 10.2 and platelets 209 11/03/2023 Patient is seen in follow-up and status post left total hip arthroplasty with orthopedics following closely. Patient reports was able to work with physical therapy a little although having intense severe pain currently working on pain [employer]. Patient does report she takes a number of narcotic medications at home with her previous history and has a high tolerance for pain medications. Adjustments being made per orthopedics. Recommend limiting IV narcotic use. Patient is afebrile with no reported chest pain or shortness of breath. Patient has been tolerating diet and denies nausea or vomiting. Patient reports is passing gas but has not had a bowel movement as of yet. 24-hour interval change 11/05/2023 Patient is seen and evaluated in room at bedside; continues to report uncontrolled pain seen in the past was okay Vital signs are reviewed and remained stable Vital signs reviewed reveal sodium 140, potassium 3.8, BUNs/creatinine of 12.7/creatinine 0.8 Orthopedic recommending to continue weight bearing as tolerated to left lower extremity; patient to continue with some physical therapy and increase ambulation --Has been placed on anticoagulation with Xarelto -- Plan is for patient to be discharged to rehab once arrangements are made on Tuesday Follow-up with orthopedic surgery in 2 to 3 weeks 11/06/2023 Patient is seen and evaluated ambulating in the room; still reports uncontrolled pain; is being followed by pain management and is placed on a fentanyl patch Vital signs are reviewed and are stable Patient remains on anticoagulation for DVT prophylaxis --Plan to be discharged to short-term skilled rehab Medically stable for discharge when arrangements are made 11/07/2023 Patient is seen and evaluated in follow-up today currently working on discharge planning. Initial talk of possible ECF for continued strength and mobility although patient reports has been improving and has support at home and plans have changed and will now be going home. Social work following working on discharge planning and necessary equipment. Patient to follow-up with pain management outpatient as well as orthopedics. Patient is medically stable once cleared by orthopedics for discharge planning. Patient is afebrile with no reported chest pain or shortness of breath. Patient does have incentive spirometer at bedside and encouraged to continue using even at home. Encouraged small frequent meals and continued bowel regimen. Review of systems: Constitutional: No reports of fatigue, fever, or chills Cardiovascular: No reports of chest pain or palpitations Respiratory: No reports of shortness of breath or cough GI: No reports of nausea, vomiting, or diarrhea, reports passing gas and has had small bowel movements : No reports of dysuria or retention Neurovascular: reports of generalized weakness and continued left hip pain All medications have been reviewed PHYSICAL EXAMINATION: Patient is sitting up in the bed comfortably, no acute distress, awake alert and oriented.. Well-developed, well-nourished, obese HEENT: Normocephalic. Neck is supple. Pupils reactive. Nostrils clear. Oral cavity is moist. Neck reveals no JVD, carotid bruits, or thyromegaly. CHEST EXAMINATION: Trachea is central. Symmetrical expansion. Lung galo clear to auscultation and percussion. CARDIAC: Normal S1, S2 with no gallops. No murmurs ABDOMEN: Soft. Obese, bowel sounds normal. No organomegaly. No abdominal bruits. Extremities: reveal no edema. No clubbing or cyanosis, left hip surgical site is dry and intact Neurologically awake, alert, oriented x3 with well-coordinated movements. No focal deficits noted, diffusely weak Skin: No rash or skin lesions. Psychiatric: Cooperative. Non-suicidal Musculoskeletal: No joint swelling or deformity. Left hip surgical site intact. 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 Multiple adjustments to medications being made and patient will also follow-up with pain management outpatient Continue bowel regimen and encourage incentive spirometry at least 10 times every hour while awake. Appropriate home medications have been reviewed and resumed PT/OT therapy following and initially discussing possible ECF although patient would like to go home. Social work following making arrangements on discharge planning needs Orthopedics working on discharge planning for today. Patient is medically stable for discharge home today. We will continue to follow with orthopedics during hospitalization. Thank you kindly for this consultation. The impression and plan of care has been dictated by Kaylene Ramos, Nurse Practitioner as directed. Dr. Aminta MD I have performed a history and examination and MDM of this patient, discussed the same with the dictator, and agree with the dictator's assessment and plan as written ,documented as a scribe. Based on total visit time, I have performed more than 50% of the visit. Objective - Vital Signs Vital signs: Vital Signs Temp 97.9 F 11/07/23 07:05 Pulse 78 11/07/23 07:05 Resp 19 11/07/23 07:05 BP 129/69 11/07/23 07:05 Pulse Ox 98 11/07/23 07:05 FiO2 Intake & Output 11/06/23 11/07/23 11/07/23 18:59 06:59 18:59 Intake Total 480 Balance 480 Intake: Oral 480 Other: Voiding Method Toilet # Voids 2 2 - Labs CBC & Chem 7: 11/06/23 05:06 11/05/23 04:26 Labs: Abnormal Lab Results - Last 24 Hours (Table) 11/06/23 Range/Units 05:06 RBC 3.18 L (4.10-5.20) X 10*6/uL Hgb 9.4 L (12.0-15.0) g/dL Hct 28.2 L (37.2-46.3) %
== END 2023-11-07 12:50 | disposition home health service (06) | DRG 470 ==
LOC: OR 09:33 → 4SSUR 12:57 → OR 11-03 13:36
PROVIDERS: ADMIT Orthopaedic Surgery; ATTEND Orthopaedic Surgery
PROC: 0SRB06A Replacement of Left Hip Joint with Oxidized Zirconium on Polyethylene Synthetic Substitute, Uncemented, Open Approach (ICD-10-PCS; principal; 2023-11-01 11:20)
DX: M16.12 Unilateral primary osteoarthritis, left hip (principal); M32.9 Systemic lupus erythematosus, unspecified; Q07.00 Arnold-Chiari syndrome without spina bifida or hydrocephalus; G90.A Postural orthostatic tachycardia syndrome [POTS]; K58.9 Irritable bowel syndrome, unspecified; F90.9 Attention-deficit hyperactivity disorder, unspecified type; F41.9 Anxiety disorder, unspecified; F32.A Depression, unspecified; M79.7 Fibromyalgia; J45.909 Unspecified asthma, uncomplicated; G89.18 Other acute postprocedural pain; M06.9 Rheumatoid arthritis, unspecified; E66.9 Obesity, unspecified; Z68.36 Body mass index [BMI] 36.0-36.9, adult; D64.9 Anemia, unspecified; L40.50 Arthropathic psoriasis, unspecified; K76.0 Fatty (change of) liver, not elsewhere classified; K21.9 Gastro-esophageal reflux disease without esophagitis; N30.10 Interstitial cystitis (chronic) without hematuria; E78.5 Hyperlipidemia, unspecified; G89.4 Chronic pain syndrome; Z88.6 Allergy status to analgesic agent; Z88.8 Allergy status to other drugs, medicaments and biological substances; Z98.2 Presence of cerebrospinal fluid drainage device; Z79.899 Other long term (current) drug therapy; Z79.82 Long term (current) use of aspirin; Z79.891 Long term (current) use of opiate analgesic; Z79.01 Long term (current) use of anticoagulants
CPT/HCPCS: 64447; 73501; 80048; 85025; 94640

== ENCOUNTER 2023-11-10 21:38 | Inpatient (IN) | payer MEDICARE, OTHER ==
--- NOTE | 2023-11-10 22:49 | XR ---
EXAMINATION TYPE: XR chest 2V DATE OF EXAM: 11/10/2023 COMPARISON: Chest x-ray November 22, 2022 HISTORY: Fever TECHNIQUE: Frontal and lateral views of the chest are obtained. FINDINGS: There is new right perihilar opacity confirmed on 2 views involving middle lobe and superi or aspect right lower lobe. Left lung is clear. The cardiac silhouette size remains within normal li mits. The osseous structures are intact. IMPRESSION: New right middle and right lower lobe acute pneumonic infiltrates.
[2023-11-10 23:43] LABS: Basophils % (A) 0 %; Eosinophils # (A) 0.1 k/uL (0-0.7); Eosinophils % (A) 3 %; HCT 24.8 % (34.0-46.0); HGB 8.8 gm/dL (11.4-16.0); Lymphocytes # (A) 0.6 k/uL (1.0-4.8); Lymphocytes % (A) 15 %; MCH 31.2 pg (25.0-35.0); MCHC 35.5 g/dL (31.0-37.0); MCV 87.9 fL (80.0-100.0); Mean Platelet Volume 9.1; Monocytes # (A) 0.2 k/uL (0-1.0); Monocytes % (A) 5 %; Neutrophils # (A) 3.1 k/uL (1.3-7.7); Neutrophils % (A) 74 %; Platelet Count 258 k/uL (150-450); Poikilocytosis Slight; RBC 2.82 m/uL (3.80-5.40); RDW 12.8 % (11.5-15.5); WBC 4.2 k/uL (3.8-10.6)
[2023-11-10] MEDS: MORPHINE SULFATE 4 MG/ML SYRINGE IV STA (23:47)
[2023-11-10] MEDS: SODIUM CHLORIDE 0.9% 1,000 ML IV STA (23:48)
[2023-11-10] MEDS: ONDANSETRON 4 MG/2 ML VIAL IVP STA (23:48)
[2023-11-10 23:54] LABS: ALT 26 U/L (4-34); AST 44 U/L (14-36); African American GFR (CKD) >90 (>60 ml/min/1.73 sqM); Alkaline Phosphatase 127 U/L (38-126); Anion Gap 6 mmol/L; Blood Urea Nitrogen 7 mg/dL (7-17); Calcium 8.1 mg/dL (8.4-10.2); Carbon Dioxide 25 mmol/L (22-30); Chloride 106 mmol/L (98-107); Glucose 99 mg/dL (74-99); Non-African American GFR(CKD) >90 (>60 ml/min/1.73 sqM); Potassium 3.5 mmol/L (3.5-5.1); Sodium 137 mmol/L (137-145); Total Bilirubin 1.5 mg/dL (0.2-1.3); Total Protein 5.4 g/dL (6.3-8.2)
[2023-11-10 23:55] LABS: Amorphous Sediment,Urine Rare /hpf; Appearance,Urine Cloudy (Clear); Bacteria,Urine Many /hpf; Bilirubin,Urine Negative (Negative); Blood,Urine Negative (Negative); Color,Urine Yellow; Glucose,Urine (UA) Negative (Negative); Hyaline Casts,Urine 4 /lpf (0-2); Ketones,Urine Negative (Negative); Leukocyte Esterase,Urine Moderate (Negative); Mucus,Urine Rare /hpf; Nitrite,Urine Positive (Negative); Protein,Urine 1+ (Negative); RBC,Urine 2 /hpf (0-5); Specific Gravity,Urine 1.015 (1.001-1.035); Squamous Epithelial Cell,Urine 9 /hpf (0-4); WBC,Urine 41 /hpf (0-5)
[2023-11-11] MEDS: AZITHROMYCIN 500 MG TAB PO STA (00:04)
[2023-11-11] MEDS: SODIUM CHLORIDE 0.9% 1,000 ML IV STA (00:08)
[2023-11-11] MEDS ORDERED: PNEUMONIA PROTOCOL UTILIZED 1 EACH MISC PO PRN (00:58)
[2023-11-11] MEDS ORDERED: MAGNESIUM HYDROXIDE 2,400 MG/30 ML CUP PO PRN (01:04)
[2023-11-11] MEDS ORDERED: NON FORMULARY DRUG (Rimegepant Sulfate [Nurtec Odt] 75 MG Tab.Rapdis) PO PRN (01:04)
--- NOTE | 2023-11-11 01:12 | ED ---
General Adult HPI - General Chief complaint: Upper Respiratory Infection Stated complaint: leg pain chest pain NEAL Time Seen by Provider: 11/10/23 21:51 Source: patient Mode of arrival: ambulatory Limitations: no limitations - History of Present Illness Initial comments: This patient is a 43-year-old woman who presents with complaint of having cough and congestion with a little bit of dyspnea. She states this has been getting worse over the past 2 or 3 days. The patient relates that she had a history of left total hip arthroplasty by Dr. Wheeler performed October 31. She had brief rehab stent and then has been at home. The patient states that she has noticed increasing congestion and cough. She was uncertain if there was fever but they did find when here in triage. The patient also states that when the visiting nurse checked her hip incision there was increasing redness noted today. The patient has no complaints related to her leg. No swelling or pain to the lower leg. She does have some postoperative pain that she states has not really changed. -: days(s) Location: left, lower extremity Radiation: non-radiation Quality: aching Consistency: constant Improves with: none Worsens with: none Associated Symptoms: cough, shortness of breath Treatments Prior to Arrival: none - Related Data Home Medications Medication Instructions Recorded Confirmed Montelukast Sodium [Singulair] 10 mg PO HS 08/13/18 11/11/23 Dicyclomine [Bentyl] 10 mg PO QID PRN 02/17/21 11/11/23 Famotidine [Pepcid] 20 mg PO BID 02/17/21 11/11/23 Rimegepant Sulfate [Nurtec Odt] 75 mg PO DAILY PRN 02/17/21 11/11/23 Erenumab-Aooe [Aimovig 140 mg SQ Q30D 08/04/21 11/11/23 Autoinjector] Metoprolol Tartrate [Lopressor] 25 mg PO HS 10/21/22 11/11/23 clonazePAM 2 mg PO HS 10/21/22 11/11/23 medroxyPROGESTERone [Depo-Provera] 150 mg IM Q90D 10/21/22 11/11/23 Aspirin EC [Ecotrin Low Dose] 81 mg PO DAILY 11/22/22 11/11/23 Nitroglycerin Sl Tabs [Nitrostat] 0.4 mg SUBLINGUAL Q5M PRN 11/22/22 11/11/23 Oxybutynin ER [Ditropan XL] 15 mg PO HS 11/22/22 11/11/23 diphenhydrAMINE HCL [Benadryl] 25 mg PO HS 11/22/22 11/11/23 Cholecalciferol [Vitamin D3 (25 25 mcg PO DAILY 01/25/23 11/11/23 Mcg = 1000 Iu)] Atorvastatin [Lipitor] 40 mg PO DAILY 08/05/23 11/11/23 Lisdexamfetamine Dimesylate 60 mg PO DAILY 08/05/23 11/11/23 [Vyvanse] Nystatin 100,000 Unit/ml Susp 4 ml PO QID PRN 08/05/23 11/11/23 [Mycostatin Oral Susp] Pantoprazole [Protonix] 40 mg PO QID 08/05/23 11/11/23 Zolpidem Tartrate [Ambien] 5 mg PO HS 08/05/23 11/11/23 Albuterol Inhaler [Ventolin Hfa 1 - 2 puff INHALATION RT-Q6H PRN 10/27/23 11/11/23 Inhaler] Cetirizine HCl [Zyrtec] 10 mg PO HS 10/27/23 11/11/23 Escitalopram [Lexapro] 10 mg PO HS 10/27/23 11/11/23 Secukinumab [Cosentyx Sensoready 300 mg SQ Q30D 10/27/23 11/11/23 (2 Pens)] tiZANidine [Zanaflex] 4 mg PO TID PRN 10/27/23 11/11/23 Albuterol Nebulized [Ventolin 2.5 mg INHALATION RT-Q6H PRN 11/11/23 11/11/23 Nebulized] Morphine Sulfate Ir [MSIR] 30 mg PO Q4H MDD 5 tabs 11/11/23 11/11/23 Sennosides-Docusate Sodium 2 tab PO HS 11/11/23 11/11/23 [Senokot-S] Previous Rx's Medication Instructions Recorded Rivaroxaban [Xarelto] 10 mg PO DAILY #30 tab 11/01/23 Clindamycin Gel [Cleocin T 1% Gel] 1 applic TOPICAL BID #1 each 11/07/23 Clobetasol Propionate [Temovate 1 applic TOPICAL HS #1 each 11/07/23 0.05% Cream] Hydrocortisone Cream 1 applic TOPICAL HS #1 each 11/07/23 [Hydrocortisone 2.5% Cream] Magnesium Hydroxide [Milk of 2,400 mg PO DAILY PRN #30 each 11/07/23 Magnesia] metroNIDAZOLE 0.75% CREAM 1 applic TOPICAL DAILY #1 each 11/07/23 [Metrocream 0.75%] cefUROXime axetiL [Ceftin] 500 mg PO BID 1 Days #2 tab 11/14/23 Allergies Allergy/AdvReac Type Severity Reaction Status Date / Time ibuprofen [From Motrin] AdvReac Kidney Verified 11/11/23 09:16 Failure metoclopramide HCl AdvReac Hallucinati Verified 11/11/23 09:16 [From Reglan] ons NSAIDS (Non-Steroidal AdvReac Kidney Verified 11/11/23 09:16 Anti-Inflamma Failure pregabalin [From Lyrica] AdvReac Cough Verified 11/11/23 09:16 prochlorperazine AdvReac Hallucinati Verified 11/11/23 09:16 [From Compazine] ons Review of Systems ROS Statement: Those systems with pertinent positive or pertinent negative responses have been documented in the HPI. ROS Other: All systems not noted in ROS Statement are negative. Constitutional: Reports: fever. Denies: weakness ENT: Reports: congestion Respiratory: Reports: cough, dyspnea Cardiovascular: Denies: chest pain, palpitations, orthopnea, edema, syncope Gastrointestinal: Denies: abdominal pain, vomiting, diarrhea Genitourinary: Denies: dysuria, frequency, hematuria Musculoskeletal: Denies: back pain Skin: Reports: as per HPI, change in color. Denies: rash Neurological: Denies: headache, weakness, numbness Past Medical History Past Medical History: Asthma, Chest Pain / Angina, Fibromyalgia, GERD/Reflux, Hyperlipidemia, Liver Disease, Neurologic Disorder, Rheumatoid Arthritis (RA) Additional Past Medical History / Comment(s): PSORIATIC ARTHRITIS. POTS. Chiari malformation with STOCK CONTROL SUPERVISOR shunt. Migraines. IBS. Lupus. OCCASIONAL DIZZINESS, IRREGULAR HEART RATE. HX POLYNEPHRITIS. Non-alcoholic fatty liver. History of Any Multi-Drug Resistant Organisms: None Reported Past Surgical History: Bladder Surgery, Hysterectomy, Joint Replacement, Orthop edic Surgery, Tonsillectomy, Tubal Ligation Additional Past Surgical History / Comment(s): Chiari decompression, shunt to brain, brain surgery X5, bladder suspension, bladder lift partial hysterectomy, uterus lift, bilateral carpal tunnel. Past Anesthesia/Blood Transfusion Reactions: No Reported Reaction Past Psychological History: ADD/ADHD, Anxiety, Depression Smoking Status: Never smoker Past Alcohol Use History: None Reported Past Drug Use History: None Reported - Past Family History Mother Family Medical History: No Reported History Father Family Medical History: Unable to Obtain General Exam Limitations: no limitations General appearance: alert, in no apparent distress Head exam: Present: atraumatic, normocephalic Eye exam: Present: normal appearance. Absent: scleral icterus, conjunctival injection ENT exam: Present: normal oropharynx Neck exam: Present: normal inspection Respiratory exam: Present: rales (Right lung), rhonchi. Absent: respiratory distress, wheezes, stridor, accessory muscle use, decreased breath sounds, prolonged expiratory Cardiovascular Exam: Present: regular rate, normal rhythm, normal heart sounds. Absent: systolic murmur, diastolic murmur, rubs, gallop GI/Abdominal exam: Present: soft. Absent: distended, tenderness, guarding, rebound, rigid, mass, pulsatile mass, hernia Extremities exam: Present: tenderness, normal capillary refill, other (There is a surgical incision of the left hip that is dry and without any drainage. There is mild erythema adjacent to the incision.). Absent: pedal edema, joint swelling Back exam: Present: normal inspection. Absent: CVA tenderness (R), CVA tenderness (L) Neurological exam: Present: alert. Absent: motor sensory deficit Skin exam: Present: warm, dry, intact, normal color. Absent: rash Course Vital Signs 11/10/23 11/10/23 11/11/23 21:47 23:49 01:02 Temperature 101.4 F H 100.6 F H Pulse Rate 103 H 102 H Respiratory 20 18 Rate Blood Pressure 113/77 119/69 O2 Sat by Pulse 96 99 Oximetry 11/11/23 01:13 Temperature Pulse Rate 89 Respiratory 18 Rate Blood Pressure 109/70 O2 Sat by Pulse 97 Oximetry Medical Decision Making - Medical Decision Making The patient had chest x-ray that I interpreted as showing right-sided pneumonia Was pt. sent in by a medical professional or institution (KAPIL Hodge, [employer] PRODUCER, urgent care, hospital, or jail...) When possible be specific @ -[No] Did you speak to anyone other than the patient for history (EMS, parent, family, police, friend...)? What history was obtained from this source @ -[No] Did you review nursing and triage notes (agree or disagree)? Why? @ -[I reviewed and agree with nursing and triage notes] Were old charts reviewed (outside hosp., previous admission, EMS record, old EKG, old radiological studies, urgent care reports/EKG's, jail records)? Report findings @ -[No old charts were reviewed] Differential Diagnosis (chest pain, altered mental status, abdominal pain women, abdominal pain men, vaginal bleeding, weakness, fever, dyspnea, syncope, headache, dizziness, GI bleed, back pain, seizure, CVA, palpatations, mental health, musculoskeletal)? @ -[Differential Fever: Pneumonia, viral URI, endocarditis, myocarditis, pericarditis, otitis, sinusitis, peritonsillar Abscess, retropharyngeal Abscess, epiglottitis, peritonitis, appendicitis, Azra cystitis, diverticulitis, hepatitis, colitis, UTI, PID, TOA, pyelonephritis, prostatitis, epididymitis, meningitis, encephalitis, pulmonary embolism, CVA, thyroid storm, pancreatitis, adrenal crisis, cavernous sinus thrombosis, this is not meant to be an all-inclusive list. EKG interpreted by me (3pts min.). @ -[As above] X-rays interpreted by me (1pt min.). @ -[I interpreted as above CT interpreted by me (1pt min.). @ -[None done] U/S interpreted by me (1pt. min.). @ -[None done] What testing was considered but not performed or refused? (CT, X-rays, U/S, labs)? Why? @ -[None] What meds were considered but not given or refused? Why? @ -[None] Did you discuss the management of the patient with other professionals (professionals i.e. KAPIL Hodge, [employer] PRODUCER, lab, RT, psych nurse, foster care social worker, refractory bricklayer, teacher, staff antisubmarine officer, home health care case manager)? Give summary @ -[Case discussed with admitting physician and treatment recommendations incorporated Was smoking cessation discussed for >3mins.? @ -[No] Was critical care preformed (if so, how long)? @ -[No] Were there social determinants of health that impacted care today? How? (Homelessness, low income, unemployed, alcoholism, drug addiction, transportation, low edu. Level, literacy, decrease access to med. care, long-term, rehab)? @ -[No] Was there de-escalation of care discussed even if they declined (Discuss DNR or withdrawal of care, Hospice)? DNR status @ -[No] What co-morbidities impacted this encounter? (DM, HTN, Smoking, COPD, CAD, Cancer, CVA, ARF, Chemo, Hep., AIDS, mental health diagnosis, sleep apnea, morbid obesity)? @ -[Recent hip surgery. Asthma. Was patient admitted / discharged? Hospital course, mention meds given and route, prescriptions, significant lab abnormalities, going to OR and other pertinent info. @ -[Patient is a 43-year-old woman presenting with fever. On exam there are crackles on the lungs and the chest x-ray does reveal pneumonia as suspected. The patient is started on antibiotics and will be admitted for further treatment. The patient does have mild erythema at the surgical site and will have orthopedic consultation. No definite infection there. Undiagnosed new problem with uncertain prognosis? @ -[No] Drug Therapy requiring intensive monitoring for toxicity (Heparin, Nitro, Insulin, Cardizem)? @ -[No] Were any procedures done? @ -[No] Diagnosis/symptom? @ -[Acute pneumonia Erythema at recent surgical site Acute, or Chronic, or Acute on Chronic? @ -[Acute Uncomplicated (without systemic symptoms) or Complicated (systemic symptoms)? @ -[Uncomplicated Side effects of treatment? @ -[No] Exacerbation, Progression, or Severe Exacerbation? @ -[No] Poses a threat to life or bodily function? How? (Chest pain, [place], [place], pneumonia, PE, COPD, DKA, ARF, appy, cholecystitis, CVA, Diverticulitis, Homicidal, Suicidal, threat to staff... and all critical care pts) @ -[There is threat to life though low risk at this point related to pneumonia - Lab Data Result diagrams: 11/14/23 05:27 11/14/23 05:27 Lab Results 11/10/23 11/10/23 11/10/23 Range/Units 22:10 23:30 23:30 WBC 4.2 (3.8-10.6) k/uL RBC 2.82 L (3.80-5.40) m/uL Hgb 8.8 L (11.4-16.0) gm/dL Hct 24.8 L (34.0-46.0) % MCV 87.9 (80.0-100.0) fL MCH 31.2 (25.0-35.0) pg MCHC 35.5 (31.0-37.0) g/dL RDW 12.8 (11.5-15.5) % Plt Count 258 (150-450) k/uL MPV 9.1 Neutrophils % 74 % Lymphocytes % 15 % Monocytes % 5 % Eosinophils % 3 % Basophils % 0 % Neutrophils # 3.1 (1.3-7.7) k/uL Lymphocytes # 0.6 L (1.0-4.8) k/uL Monocytes # 0.2 (0-1.0) k/uL Eosinophils # 0.1 (0-0.7) k/uL Basophils # 0.0 (0-0.2) k/uL Poikilocytosis Slight Sodium 137 (137-145) mmol/L Potassium 3.5 (3.5-5.1) mmol/L Chloride 106 (98-107) mmol/L Carbon Dioxide 25 (22-30) mmol/L Anion Gap 6 mmol/L BUN 7 (7-17) mg/dL Creatinine 0.64 (0.52-1.04) mg/dL Est GFR (CKD-EPI)AfAm >90 (>60 ml/min/1.73 sqM) Est GFR (CKD-EPI)NonAf >90 (>60 ml/min/1.73 sqM) Glucose 99 (74-99) mg/dL Plasma Lactic Acid Paulino (0.7-2.0) mmol/L Calcium 8.1 L (8.4-10.2) mg/dL Total Bilirubin 1.5 H (0.2-1.3) mg/dL AST 44 H (14-36) U/L ALT 26 (4-34) U/L Alkaline Phosphatase 127 H (38-126) U/L Total Protein 5.4 L (6.3-8.2) g/dL Albumin 3.0 L (3.5-5.0) g/dL Urine Color Urine Appearance (Clear) Urine pH (5.0-8.0) Ur Specific [place] (1.001-1.035) Urine Protein (Negative) Urine Glucose (UA) (Negative) Urine Ketones (Negative) Urine Blood (Negative) Urine Nitrite (Negative) Urine Bilirubin (Negative) Urine Urobilinogen (<2.0) mg/dL Ur Leukocyte Esterase (Negative) Urine RBC (0-5) /hpf Urine WBC (0-5) /hpf Ur Squamous Epith Cells (0-4) /hpf Amorphous Sediment (None) /hpf Urine Bacteria (None) /hpf Hyaline Casts (0-2) /lpf Urine Mucus (None) /hpf Influenza Type A (PCR) Not Detected (Not Detectd) Influenza Type B (PCR) Not Detected (Not Detectd) Urine Legionella Ag (Negative) RSV (PCR) Not Detected (Not Detectd) SARS-CoV-2 (PCR) Not Detected (Not Detectd) 11/10/23 11/10/23 11/10/23 Range/Units 23:30 23:34 23:34 WBC (3.8-10.6) k/uL RBC (3.80-5.40) m/uL Hgb (11.4-16.0) gm/dL Hct (34.0-46.0) % MCV (80.0-100.0) fL MCH (25.0-35.0) pg MCHC (31.0-37.0) g/dL RDW (11.5-15.5) % Plt Count (150-450) k/uL MPV Neutrophils % % Lymphocytes % % Monocytes % % Eosinophils % % Basophils % % Neutrophils # (1.3-7.7) k/uL Lymphocytes # (1.0-4.8) k/uL Monocytes # (0-1.0) k/uL Eosinophils # (0-0.7) k/uL Basophils # (0-0.2) k/uL Poikilocytosis Sodium (137-145) mmol/L Potassium (3.5-5.1) mmol/L Chloride (98-107) mmol/L Carbon Dioxide (22-30) mmol/L Anion Gap mmol/L BUN (7-17) mg/dL Creatinine (0.52-1.04) mg/dL Est GFR (CKD-EPI)AfAm (>60 ml/min/1.73 sqM) Est GFR (CKD-EPI)NonAf (>60 ml/min/1.73 sqM) Glucose (74-99) mg/dL Plasma Lactic Acid Paulino 0.8 (0.7-2.0) mmol/L Calcium (8.4-10.2) mg/dL Total Bilirubin (0.2-1.3) mg/dL AST (14-36) U/L ALT (4-34) U/L Alkaline Phosphatase (38-126) U/L Total Protein (6.3-8.2) g/dL Albumin (3.5-5.0) g/dL Urine Color Yellow Urine Appearance Cloudy H (Clear) Urine pH 7.0 (5.0-8.0) Ur Specific [place] 1.015 (1.001-1.035) Urine Protein 1+ H (Negative) Urine Glucose (UA) Negative (Negative) Urine Ketones Negative (Negative) Urine Blood Negative (Negative) Urine Nitrite Positive H (Negative) Urine Bilirubin Negative (Negative) Urine Urobilinogen 6.0 (<2.0) mg/dL Ur Leukocyte Esterase Moderate H (Negative) Urine RBC 2 (0-5) /hpf Urine WBC 41 H (0-5) /hpf Ur Squamous Epith Cells 9 H (0-4) /hpf Amorphous Sediment Rare H (None) /hpf Urine Bacteria Many H (None) /hpf Hyaline Casts 4 H (0-2) /lpf Urine Mucus Rare H (None) /hpf Influenza Type A (PCR) (Not Detectd) Influenza Type B (PCR) (Not Detectd) Urine Legionella Ag Negative (Negative) RSV (PCR) (Not Detectd) SARS-CoV-2 (PCR) (Not Detectd) Disposition Clinical Impression: Pneumonia Disposition: ADMITTED IP TO THIS HOSP Condition: Fair Is patient prescribed a controlled substance at d/c from ED?: No
[2023-11-11] MEDS: PANTOPRAZOLE 40 MG TABLET PO SCH (05:25)
[2023-11-11] MEDS: oxyCODONE-APAP 10-325MG 1 EACH TAB PO SCH (05:25)
[2023-11-11] MEDS: ATORVASTATIN 40 MG TAB PO SCH (07:51)
[2023-11-11] MEDS: CHOLECALCIFEROL 25 MCG (1000 IU) TABLET PO SCH (07:51)
[2023-11-11] MEDS: ASPIRIN 81 MG PO SCH (07:51)
[2023-11-11] MEDS: RIVAROXABAN 10 MG TAB PO SCH (07:51)
--- NOTE | 2023-11-11 08:59 | P.CNOR ---
History of Present Illness - [facility] Consult date: 11/11/23 Consult reason: other (Status post right total hip arthroplasty) History of present illness: The patient is a 43-year-old female who presented to the emergency Department with shortness of breath and cough. The patient is status post left total hip arthroplasty on 11/01/[address] Cristiano Wheeler. She did have pain control issues after surgery and she was managed by pain management but was unable to sustain good control with pain medications at home. She began to have difficulty in breathing and some redness to her hip incision and she was advised to come to the ER by her home physical therapist. Today, she continues to have severe pain in the left hip and shortness of breath. She is currently on IV antibiotics for pneumonia and a UTI. Orthopedics was consulted for evaluation of her post operative hip. Review of Systems Constitutional: Reports fatigue, Denies chills, Denies fever Cardiovascular: Denies chest pain, Denies shortness of breath Respiratory: Denies cough Gastrointestinal: Denies diarrhea, Denies nausea, Denies vomiting Musculoskeletal: left: hip pain, hip stiffness, hip swelling Past Medical History Past Medical History: Asthma, Chest Pain / Angina, Fibromyalgia, GERD/Reflux, Hyperlipidemia, Liver Disease, Neurologic Disorder, Rheumatoid Arthritis (RA) Additional Past Medical History / Comment(s): PSORIATIC ARTHRITIS. POTS. Chiari malformation with BUDGET RECORD CLERK shunt. Migraines. IBS. Lupus. OCCASIONAL DIZZINESS, IRREGULAR HEART RATE. HX POLYNEPHRITIS. Non-alcoholic fatty liver. History of Any Multi-Drug Resistant Organisms: None Reported Past Surgical History: Bladder Surgery, Hysterectomy, Joint Replacement, Orthopedic Surgery, Tonsillectomy, Tubal Ligation Additional Past Surgical History / Comment(s): Chiari decompression, shunt to brain, brain surgery X5, bladder suspension, bladder lift partial hysterectomy, uterus lift, bilateral carpal tunnel. Past Anesthesia/Blood Transfusion Reactions: No Reported Reaction Past Psychological History: ADD/ADHD, Anxiety, Depression Additional Psychological History / Comment(s): ADD. Smoking Status: Never smoker Past Alcohol Use History: None Reported Past Drug Use History: None Reported - Past Family History Mother Family Medical History: No Reported History Father Family Medical History: Unable to Obtain Medications and Allergies Home Medications Medication Instructions Recorded Confirmed Type Montelukast Sodium [Singulair] 10 mg PO HS 08/13/18 11/11/23 History Dicyclomine [Bentyl] 10 mg PO QID PRN 02/17/21 11/11/23 History Famotidine [Pepcid] 20 mg PO BID 02/17/21 11/11/23 History Rimegepant Sulfate [Nurtec Odt] 75 mg PO DAILY PRN 02/17/21 11/11/23 History Erenumab-Aooe [Aimovig 140 mg SQ Q30D 08/04/21 11/11/23 History Autoinjector] Metoprolol Tartrate [Lopressor] 25 mg PO HS 10/21/22 11/11/23 History clonazePAM 2 mg PO HS 10/21/22 11/11/23 History medroxyPROGESTERone [Depo-Provera] 150 mg IM Q90D 10/21/22 11/11/23 History Aspirin EC [Ecotrin Low Dose] 81 mg PO DAILY 11/22/22 11/11/23 History Nitroglycerin Sl Tabs [Nitrostat] 0.4 mg SUBLINGUAL Q5M PRN 11/22/22 11/11/23 History Oxybutynin ER [Ditropan XL] 15 mg PO HS 11/22/22 11/11/23 History diphenhydrAMINE HCL [Benadryl] 25 mg PO HS 11/22/22 11/11/23 History Cholecalciferol [Vitamin D3 (25 25 mcg PO DAILY 01/25/23 11/11/23 History Mcg = 1000 Iu)] Atorvastatin [Lipitor] 40 mg PO DAILY 08/05/23 11/11/23 History Lisdexamfetamine Dimesylate 60 mg PO DAILY 08/05/23 11/11/23 History [Vyvanse] Nystatin 100,000 Unit/ml Susp 4 ml PO QID PRN 08/05/23 11/11/23 History [Mycostatin Oral Susp] Pantoprazole [Protonix] 40 mg PO QID 08/05/23 11/11/23 History Zolpidem Tartrate [Ambien] 5 mg PO HS 08/05/23 11/11/23 History Albuterol Inhaler [Ventolin Hfa 1 - 2 puff INHALATION RT-Q6H PRN 10/27/23 11/11/23 History Inhaler] Cetirizine HCl [Zyrtec] 10 mg PO HS 10/27/23 11/11/23 History Escitalopram [Lexapro] 10 mg PO HS 10/27/23 11/11/23 History Secukinumab [Cosentyx Sensoready 300 mg SQ Q30D 10/27/23 11/11/23 History (2 Pens)] tiZANidine [Zanaflex] 4 mg PO TID PRN 10/27/23 11/11/23 History Rivaroxaban [Xarelto] 10 mg PO DAILY #30 tab 11/01/23 11/11/23 Rx Clindamycin Gel [Cleocin T 1% Gel] 1 applic TOPICAL BID #1 each 11/07/23 11/11/23 Rx Clobetasol Propionate [Temovate 1 applic TOPICAL HS #1 each 11/07/23 11/11/23 Rx 0.05% Cream] Hydrocortisone Cream 1 applic TOPICAL HS #1 each 11/07/23 11/11/23 Rx [Hydrocortisone 2.5% Cream] Magnesium Hydroxide [Milk of 2,400 mg PO DAILY PRN #30 each 11/07/23 11/11/23 Rx Magnesia] metroNIDAZOLE 0.75% CREAM 1 applic TOPICAL DAILY #1 each 11/07/23 11/11/23 Rx [Metrocream 0.75%] Albuterol Nebulized [Ventolin 2.5 mg INHALATION RT-Q6H PRN 11/11/23 11/11/23 History Nebulized] Morphine Sulfate Ir [MSIR] 30 mg PO Q4H MDD 5 tabs 11/11/23 11/11/23 History Sennosides-Docusate Sodium 2 tab PO HS 11/11/23 11/11/23 History [Senokot-S] Allergies Allergy/AdvReac Type Severity Reaction Status Date / Time ibuprofen [From Motrin] AdvReac Kidney Verified 11/11/23 09:16 Failure metoclopramide HCl AdvReac Hallucinati Verified 11/11/23 09:16 [From Reglan] ons NSAIDS (Non-Steroidal AdvReac Kidney Verified 11/11/23 09:16 Anti-Inflamma Failure pregabalin [From Lyrica] AdvReac Cough Verified 11/11/23 09:16 prochlorperazine AdvReac Hallucinati Verified 11/11/23 09:16 [From Compazine] ons Physical Examination The patient does not appear in acute distress. Alert and orientated x3. Incision appears fine with no increasing erythema or active drainage. There slight redness to the area which appears to be where the Optifoam dressing was, a possible allergic reaction. No warmth to the incision. Calf is soft and nontender. Good foot and ankle motion without difficulty. Sensation and circulatory status is intact. Results - Labs Labs: Abnormal Lab Results - Last 24 Hours (Table) 11/10/23 11/10/23 11/10/23 Range/Units 23:30 23:30 23:34 RBC 2.82 L (3.80-5.40) m/uL Hgb 8.8 L (11.4-16.0) gm/dL Hct 24.8 L (34.0-46.0) % Lymphocytes # 0.6 L (1.0-4.8) k/uL Calcium 8.1 L (8.4-10.2) mg/dL Total Bilirubin 1.5 H (0.2-1.3) mg/dL AST 44 H (14-36) U/L Alkaline Phosphatase 127 H (38-126) U/L Total Protein 5.4 L (6.3-8.2) g/dL Albumin 3.0 L (3.5-5.0) g/dL Urine Appearance Cloudy H (Clear) Urine Protein 1+ H (Negative) Urine Nitrite Positive H (Negative) Ur Leukocyte Esterase Moderate H (Negative) Urine WBC 41 H (0-5) /hpf Ur Squamous Epith Cells 9 H (0-4) /hpf Amorphous Sediment Rare H (None) /hpf Urine Bacteria Many H (None) /hpf Hyaline Casts 4 H (0-2) /lpf Urine Mucus Rare H (None) /hpf H & H 11/10/23 Range/Units 23:30 Hgb 8.8 L (11.4-16.0) gm/dL Hct 24.8 L (34.0-46.0) % Result Diagrams: 11/10/23 23:30 11/10/23 23:30 Assessment and Plan (1) Pneumonia Current Visit: Yes Status: Acute Code(s): J18.9 - PNEUMONIA, UNSPECIFIED ORGANISM SNOMED Code(s): 074716829 (2) Post-op pain Current Visit: No Status: Acute Code(s): G89.18 - OTHER ACUTE POSTPROCEDURAL PAIN SNOMED Code(s): 704710994 (3) S/P total hip arthroplasty Current Visit: No Status: Acute Code(s): Z96.649 - PRESENCE OF UNSPECIFIED ARTIFICIAL HIP JOINT SNOMED Code(s): 047696359105 Plan: The clinical findings were discussed with the patient and family at the bedside. The case was discussed with Dr. Cristiano Wheeler. The hip incision appears stable at this time. No infection is suspected. A possible allergic reaction to the Optifoam dressing is suspected. She may keep the dressing off at this time. Continue treatment for pneumonia and UTI per internal medicine. Pain management will be consulted again to assist with her multiple medications for pain. Continue Xarelto for anticoagulation. We will continue to follow the patient.
[2023-11-11] MEDS: ALBUTEROL NEBULIZED 2.5 MG/3 ML INHALATION PRN (12:32)
--- NOTE | 2023-11-11 12:40 | P.HPIM ---
History of Present Illness Patient is a pleasant 43 years old female with past medical history of multiple medical problems including ahlos danlos syndrome psoriatic arthritis and rheumatoid arthritis, she used to take some anti-inflammatory medication but st opped it last week when she went for her left hip surgery. Because of her musculoskeletal and rheumatological diseases she developed severe osteoarthritis of the left hip. She underwent total hip replacement surgery about 1 week ago Since she left the hospital she was feeling more short of breath, she has history of asthma and she uses inhaler and nebulizer at home, she started using them more frequently. Patient started feeling some rattle in her chest and gets short of breath so she decided to come to emergency room. Also at the same time she has a visiting nurse who noticed that her left hip incision looks hot so referred her to the emergency room as well as she has been having more pain in her left hip Also patient has been complaining from dysuria and urinary discomfort but no fl ank pain Patient denies chest pain except when she coughs No diarrhea actually she is constipated. No abdominal pain or vomiting. She denies headache dizziness weakness or numbness She denies smoking alcohol or illicit drugs. Patient also has 5 children sent home, she is status post tubal ligation and partial hysterectomy On admission she has low-grade fever of 100.6 Blood pressure is borderline 94/53 She has unremarkable CBC with WBC 4.2, hemoglobin 8.8 BMP and liver enzymes unremarkable bilirubin 1.5 which is slightly elevated Lactic acid normal at 0.8 Urine analysis is abnormal suspicious for infection M Influenza A and type B, RSV, SARS (coronavirus) are undetected Chest x-ray showing right and middle lobe infiltrate Patient was started on ceftriaxone and Zithromax Review of Systems Review of systems CONSTITUTIONAL: No fever, no malaise, no fatigue. HEENT: No recent visual problems or hearing problems. Denied any sore throat. CARDIOVASCULAR: No orthopnea, PND, no palpitations, no syncope. PULMONARY: , no cough, no hemoptysis. GASTROINTESTINAL: No diarrhea, no nausea, no vomiting, no abdominal pain. Normoactive bowel sounds. NEUROLOGICAL: No headaches, no weakness, no numbness. HEMATOLOGICAL: Denies any bleeding or petechiae. GENITOURINARY: Denies any burning micturition, frequency, or urgency. -MUSCULOSKELETAL/RHEUMATOLOGICAL: As above ENDOCRINE: Denies any polyuria or polydipsia. Past Medical History Past Medical History: Asthma, Chest Pain / Angina, Fibromyalgia, GERD/Reflux, Hyperlipidemia, Liver Disease, Neurologic Disorder, Rheumatoid Arthritis (RA) Additional Past Medical History / Comment(s): PSORIATIC ARTHRITIS. POTS. Chiari malformation with PERSONAL COMPUTER SPECIALIST shunt. Migraines. IBS. Lupus. OCCASIONAL DIZZINESS, IRREGULAR HEART RATE. HX POLYNEPHRITIS. Non-alcoholic fatty liver. History of Any Multi-Drug Resistant Organisms: None Reported Past Surgical History: Bladder Surgery, Hysterectomy, Joint Replacement, Orth opedic Surgery, Tonsillectomy, Tubal Ligation Additional Past Surgical History / Comment(s): Chiari decompression, shunt to brain, brain surgery X5, bladder suspension, bladder lift partial hysterectomy, uterus lift, bilateral carpal tunnel. Past Anesthesia/Blood Transfusion Reactions: No Reported Reaction Past Psychological History: ADD/ADHD, Anxiety, Depression Additional Psychological History / Comment(s): ADD. Smoking Status: Never smoker Past Alcohol Use History: None Reported Past Drug Use History: None Reported - Past Family History Mother Family Medical History: No Reported History Father Family Medical History: Unable to Obtain Medications and Allergies Home Medications Medication Instructions Recorded Confirmed Type Montelukast Sodium [Singulair] 10 mg PO HS 08/13/18 11/11/23 History Dicyclomine [Bentyl] 10 mg PO QID PRN 02/17/21 11/11/23 History Famotidine [Pepcid] 20 mg PO BID 02/17/21 11/11/23 History Rimegepant Sulfate [Nurtec Odt] 75 mg PO DAILY PRN 02/17/21 11/11/23 History Erenumab-Aooe [Aimovig 140 mg SQ Q30D 08/04/21 11/11/23 History Autoinjector] Metoprolol Tartrate [Lopressor] 25 mg PO HS 10/21/22 11/11/23 History clonazePAM 2 mg PO HS 10/21/22 11/11/23 History medroxyPROGESTERone [Depo-Provera] 150 mg IM Q90D 10/21/22 11/11/23 History Aspirin EC [Ecotrin Low Dose] 81 mg PO DAILY 11/22/22 11/11/23 History Nitroglycerin Sl Tabs [Nitrostat] 0.4 mg SUBLINGUAL Q5M PRN 11/22/22 11/11/23 History Oxybutynin ER [Ditropan XL] 15 mg PO HS 11/22/22 11/11/23 History diphenhydrAMINE HCL [Benadryl] 25 mg PO HS 11/22/22 11/11/23 History Cholecalciferol [Vitamin D3 (25 25 mcg PO DAILY 01/25/23 11/11/23 History Mcg = 1000 Iu)] Atorvastatin [Lipitor] 40 mg PO DAILY 08/05/23 11/11/23 History Lisdexamfetamine Dimesylate 60 mg PO DAILY 08/05/23 11/11/23 History [Vyvanse] Nystatin 100,000 Unit/ml Susp 4 ml PO QID PRN 08/05/23 11/11/23 History [Mycostatin Oral Susp] Pantoprazole [Protonix] 40 mg PO QID 08/05/23 11/11/23 History Zolpidem Tartrate [Ambien] 5 mg PO HS 08/05/23 11/11/23 History Albuterol Inhaler [Ventolin Hfa 1 - 2 puff INHALATION RT-Q6H PRN 10/27/23 11/11/23 History Inhaler] Cetirizine HCl [Zyrtec] 10 mg PO HS 10/27/23 11/11/23 History Escitalopram [Lexapro] 10 mg PO HS 10/27/23 11/11/23 History Secukinumab [Cosentyx Sensoready 300 mg SQ Q30D 10/27/23 11/11/23 History (2 Pens)] tiZANidine [Zanaflex] 4 mg PO TID PRN 10/27/23 11/11/23 History Rivaroxaban [Xarelto] 10 mg PO DAILY #30 tab 11/01/23 11/11/23 Rx Clindamycin Gel [Cleocin T 1% Gel] 1 applic TOPICAL BID #1 each 11/07/23 11/11/23 Rx Clobetasol Propionate [Temovate 1 applic TOPICAL HS #1 each 11/07/23 11/11/23 Rx 0.05% Cream] Hydrocortisone Cream 1 applic TOPICAL HS #1 each 11/07/23 11/11/23 Rx [Hydrocortisone 2.5% Cream] Magnesium Hydroxide [Milk of 2,400 mg PO DAILY PRN #30 each 11/07/23 11/11/23 Rx Magnesia] metroNIDAZOLE 0.75% CREAM 1 applic TOPICAL DAILY #1 each 11/07/23 11/11/23 Rx [Metrocream 0.75%] Albuterol Nebulized [Ventolin 2.5 mg INHALATION RT-Q6H PRN 11/11/23 11/11/23 History Nebulized] Morphine Sulfate Ir [MSIR] 30 mg PO Q4H MDD 5 tabs 11/11/23 11/11/23 History Sennosides-Docusate Sodium 2 tab PO HS 11/11/23 11/11/23 History [Senokot-S] Allergies Allergy/AdvReac Type Severity Reaction Status Date / Time ibuprofen [From Motrin] AdvReac Kidney Verified 11/11/23 09:16 Failure metoclopramide HCl AdvReac Hallucinati Verified 11/11/23 09:16 [From Reglan] ons NSAIDS (Non-Steroidal AdvReac Kidney Verified 11/11/23 09:16 Anti-Inflamma Failure pregabalin [From Lyrica] AdvReac Cough Verified 11/11/23 09:16 prochlorperazine AdvReac Hallucinati Verified 11/11/23 09:16 [From Compazine] ons Physical Exam Vitals: Vital Signs Temp Pulse Pulse Resp BP BP Pulse Ox 11/11/23 07:38 97.7 F 73 19 94/53 99 11/11/23 02:20 99.6 F 92 17 109/68 99 11/11/23 01:13 89 18 109/70 97 11/11/23 01:02 100.6 F H 11/10/23 23:49 102 H 18 119/69 99 11/10/23 21:47 101.4 F H 103 H 20 113/77 96 Intake and Output 11/10/23 11/11/23 11/11/23 22:59 06:59 14:59 Intake Total 1560 Balance 1560 Intake: Intake, IV Titration 1560 Amount Sodium Chloride 0.9% 1, 1560 000 ml @ 130 mls/hr IV . Q7H42M STA Rx#:[id number] Other: # Voids 1 1 Weight 87.997 kg 87.997 kg -Exam GENERAL: The patient is alert and oriented x3, not in any acute distress. W obese HEENT: Pupils are round and equally reacting to light. EOMI. No scleral icterus. No conjunctival pallor. Normocephalic, atraumatic. No pharyngeal erythema. No thyromegaly. CARDIOVASCULAR: S1 and S2 present. No murmurs, rubs, or gallops. PULMONARY: Chest is clear to auscultation, no wheezing , no crackles. ABDOMEN: Soft, nontender, nondistended, normoactive bowel sounds. No palpable organomegaly. MUSCULOSKELETAL: No joint swelling or deformity. -EXTREMITIES: No cyanosis, clubbing, or pedal edema. Left hip incision closed with kelly in place, no surrounding cellulitis. Rest of exam is deferred to surgery team NEUROLOGICAL: Gross neurological examination did not reveal any focal deficits. SKIN: No rashes. no petechiae. Results CBC & Chem 7: 11/10/23 23:30 11/10/23 23:30 Labs: Abnormal Lab Results - Last 24 Hours (Table) 11/10/23 11/10/23 11/10/23 Range/Units 23:30 23:30 23:34 RBC 2.82 L (3.80-5.40) m/uL Hgb 8.8 L (11.4-16.0) gm/dL Hct 24.8 L (34.0-46.0) % Lymphocytes # 0.6 L (1.0-4.8) k/uL Calcium 8.1 L (8.4-10.2) mg/dL Total Bilirubin 1.5 H (0.2-1.3) mg/dL AST 44 H (14-36) U/L Alkaline Phosphatase 127 H (38-126) U/L Total Protein 5.4 L (6.3-8.2) g/dL Albumin 3.0 L (3.5-5.0) g/dL Urine Appearance Cloudy H (Clear) Urine Protein 1+ H (Negative) Urine Nitrite Positive H (Negative) Ur Leukocyte Esterase Moderate H (Negative) Urine WBC 41 H (0-5) /hpf Ur Squamous Epith Cells 9 H (0-4) /hpf Amorphous Sediment Rare H (None) /hpf Urine Bacteria Many H (None) /hpf Hyaline Casts 4 H (0-2) /lpf Urine Mucus Rare H (None) /hpf Thrombosis Risk Factor Assmnt - Choose All That Apply Any of the Below Risk Factors Present?: Yes Each Factor Represents 1 point: Abnormal pulmonary function (COPD), Age 41-60 years, Serious lung disease incl. pneumonia (< 1month), Swollen legs (current) Other Risk Factors: No Other congenital or acquired thrombophilia - If yes, enter type in comment: No Thrombosis Risk Factor Assessment Total Risk Factor Score: 4 Thrombosis Risk Factor Assessment Level: Moderate Risk Assessment and Plan Assessment: Right middle lower lobe pneumonia Acute urinary tract infection Sepsis secondary to above Severe osteoarthritis secondary to rheumatological disease s/p left total hip replacement therapy 1 week earlier ahlos danlos syndrome psoriatic arthritis rheumatoid arthritis Asthma Obesity with BMI 35.5 Plan: Continue with antibiotic, currently on ceftriaxone and Zithromax Follow-up urine culture. Send sputum culture Infectious disease consult Orthopedic team evaluated the patient Continue with pain management and pain team consult was requested as well from emergency room Start gentle hydration with normal saline 75 mL/h Labs and medication were reviewed.. Continue same treatment. Continue with symptomatic treatment. Resume home medication. Monitor labs and vitals. DVT and GI prophylaxis. Further recommendations as per clinical course of the patient DVT prophylaxis: Xarelto GI Prophylaxis: Ppi PT/OT: Pending Prognosis is guarded
[2023-11-11] MEDS: METOPROLOL TARTRATE 25 MG TAB PO SCH (20:59)
[2023-11-11] MEDS: MONTELUKAST 10 MG TAB PO SCH (20:59)
--- NOTE | 2023-11-11 21:43 | P.CONS ---
History of Present Illness - Reason for Consult Consult date: 11/11/23 Pneumonia and UTI Requesting physician: Arnaldo E Sheet - Chief Complaint Cough and shortness of breath x few days - History of Present Illness Patient is a 43-year-old female with a past medical history significant for fibromyalgia hyperlipidemia liver disease reflux rheumatoid arthritis in this patient who is status post left hip arthroplasty on 11/01/[address] Wheeler patient now presenting back to the hospital 10 days later complaining of cough congestion and shortness of breath and this patient symptom has been getting worse for 2 to 3 days before presentation to the hospital patient is also complaining of increasing swelling and erythema to the left hip surgical site along with the pain describing it to be sharp about 7-8 out of 10 without radiation patient also complaining of dark because of the urine with some burning but no significant suprapubic or flank pain with the symptoms the patient was evaluated on presentation the hospital patient did have a temperature of 101.4 F patient was not tachycardic or hypotensive not hypoxic currently not on any supplemental oxygen patient did have a white count of 4.2 creatinine was 0.64 enzymes are elevated urine has been positive influenza RSV COVID testing was negative patient did have a chest x-ray new right middle and right lower lobe acute infiltrate concerning for pneumonia patient was started on Rocephin and Zithromax admitted to the hospital infectious disease was consulted for further management of antibiotic therapy. Review of Systems Positive point and negatives has been mentioned in the HPI, complete review of systems was performed and all other systems are negative Past Medical History Past Medical History: Asthma, Chest Pain / Angina, Fibromyalgia, GERD/Reflux, Hyperlipidemia, Liver Disease, Neurologic Disorder, Rheumatoid Arthritis (RA) Additional Past Medical History / Comment(s): PSORIATIC ARTHRITIS. POTS. Chiari malformation with PARENT AIDE shunt. Migraines. IBS. Lupus. OCCASIONAL DIZZINESS, IRREGULAR HEART RATE. HX POLYNEPHRITIS. Non-alcoholic fatty liver. History of Any Multi-Drug Resistant Organisms: None Reported Past Surgical History: Bladder Surgery, Hysterectomy, Joint Replacement, Orthopedic Surgery, Tonsillectomy, Tubal Ligation Additional Past Surgical History / Comment(s): Chiari decompression, shunt to brain, brain surgery X5, bladder suspension, bladder lift partial hysterectomy, uterus lift, bilateral carpal tunnel. Past Anesthesia/Blood Transfusion Reactions: No Reported Reaction Past Psychological History: ADD/ADHD, Anxiety, Depression Additional Psychological History / Comment(s): ADD. Smoking Status: Never smoker Past Alcohol Use History: None Reported Past Drug Use History: None Reported - Past Family History Mother Family Medical History: No Reported History Father Family Medical History: Unable to Obtain Medications and Allergies Home Medications Medication Instructions Recorded Confirmed Type Montelukast Sodium [Singulair] 10 mg PO HS 08/13/18 11/11/23 History Dicyclomine [Bentyl] 10 mg PO QID PRN 02/17/21 11/11/23 History Famotidine [Pepcid] 20 mg PO BID 02/17/21 11/11/23 History Rimegepant Sulfate [Nurtec Odt] 75 mg PO DAILY PRN 02/17/21 11/11/23 History Erenumab-Aooe [Aimovig 140 mg SQ Q30D 08/04/21 11/11/23 History Autoinjector] Metoprolol Tartrate [Lopressor] 25 mg PO HS 10/21/22 11/11/23 History clonazePAM 2 mg PO HS 10/21/22 11/11/23 History medroxyPROGESTERone [Depo-Provera] 150 mg IM Q90D 10/21/22 11/11/23 History Aspirin EC [Ecotrin Low Dose] 81 mg PO DAILY 11/22/22 11/11/23 History Nitroglycerin Sl Tabs [Nitrostat] 0.4 mg SUBLINGUAL Q5M PRN 11/22/22 11/11/23 History Oxybutynin ER [Ditropan XL] 15 mg PO HS 11/22/22 11/11/23 History diphenhydrAMINE HCL [Benadryl] 25 mg PO HS 11/22/22 11/11/23 History Cholecalciferol [Vitamin D3 (25 25 mcg PO DAILY 01/25/23 11/11/23 History Mcg = 1000 Iu)] Atorvastatin [Lipitor] 40 mg PO DAILY 08/05/23 11/11/23 History Lisdexamfetamine Dimesylate 60 mg PO DAILY 08/05/23 11/11/23 History [Vyvanse] Nystatin 100,000 Unit/ml Susp 4 ml PO QID PRN 08/05/23 11/11/23 History [Mycostatin Oral Susp] Pantoprazole [Protonix] 40 mg PO QID 08/05/23 11/11/23 History Zolpidem Tartrate [Ambien] 5 mg PO HS 08/05/23 11/11/23 History Albuterol Inhaler [Ventolin Hfa 1 - 2 puff INHALATION RT-Q6H PRN 10/27/23 11/11/23 History Inhaler] Cetirizine HCl [Zyrtec] 10 mg PO HS 10/27/23 11/11/23 History Escitalopram [Lexapro] 10 mg PO HS 10/27/23 11/11/23 History Secukinumab [Cosentyx Sensoready 300 mg SQ Q30D 10/27/23 11/11/23 History (2 Pens)] tiZANidine [Zanaflex] 4 mg PO TID PRN 10/27/23 11/11/23 History Rivaroxaban [Xarelto] 10 mg PO DAILY #30 tab 11/01/23 11/11/23 Rx Clindamycin Gel [Cleocin T 1% Gel] 1 applic TOPICAL BID #1 each 11/07/2310/01 Rx Clobetasol Propionate [Temovate 1 applic TOPICAL HS #1 each 11/07/23 11/11/23 Rx 0.05% Cream] Hydrocortisone Cream 1 applic TOPICAL HS #1 each 11/07/23 11/11/23 Rx [Hydrocortisone 2.5% Cream] Magnesium Hydroxide [Milk of 2,400 mg PO DAILY PRN #30 each 11/07/23 11/11/23 Rx Magnesia] metroNIDAZOLE 0.75% CREAM 1 applic TOPICAL DAILY #1 each 11/07/23 11/11/23 Rx [Metrocream 0.75%] Albuterol Nebulized [Ventolin 2.5 mg INHALATION RT-Q6H PRN 11/11/23 11/11/23 History Nebulized] Morphine Sulfate Ir [MSIR] 30 mg PO Q4H MDD 5 tabs 11/11/23 11/11/23 History Sennosides-Docusate Sodium 2 tab PO HS 11/11/23 11/11/23 History [Senokot-S] cefUROXime axetiL [Ceftin] 500 mg PO BID 1 Days #2 tab 11/14/23 Rx Allergies Allergy/AdvReac Type Severity Reaction Status Date / Time ibuprofen [From Motrin] AdvReac Kidney Verified 11/11/23 09:16 Failure metoclopramide HCl AdvReac Hallucinati Verified 11/11/23 09:16 [From Reglan] ons NSAIDS (Non-Steroidal AdvReac Kidney Verified 11/11/23 09:16 Anti-Inflamma Failure pregabalin [From Lyrica] AdvReac Cough Verified 11/11/23 09:16 prochlorperazine AdvReac Hallucinati Verified 11/11/23 09:16 [From Compazine] ons Physical Exam Vitals: Vital Signs Temp Pulse Pulse Resp BP BP Pulse Ox 11/11/23 12:40 70 11/11/23 12:32 72 11/11/23 07:38 97.7 F 73 19 94/53 99 11/11/23 02:20 99.6 F 92 17 109/68 99 11/11/23 01:13 89 18 109/70 97 11/11/23 01:02 100.6 F H 11/10/23 23:49 102 H 18 119/69 99 11/10/23 21:47 101.4 F H 103 H 20 113/77 96 Intake and Output 11/10/23 11/11/23 11/11/23 22:59 06:59 14:59 Intake Total 1560 Balance 1560 Intake: Intake, IV Titration 1560 Amount Sodium Chloride 0.9% 1, 1560 000 ml @ 130 mls/hr IV . Q7H42M STA Rx#:[id number] Other: # Voids 1 1 Weight 87.997 kg 87.997 kg GENERAL DESCRIPTION: Middle-aged female lying in bed, no distress. No tachypnea or accessory muscle of respiration use. HEENT: Shows Pallor , no scleral icterus. Oral mucous membrane is dry. No pharyngeal erythema or thrush NECK: Trachea central, no thyromegaly. LUNGS: Unlabored breathing. decreased breath sound at the base HEART: S1, S2, regular rate and rhythm. No loud murmur ABDOMEN: Soft, no tenderness , guarding or rigidity, no organomegaly EXTREMITIES: Left thigh surgical site incision intact no drainage. SKIN: No rash, no masses palpable. NEUROLOGICAL: The patient is awake, alert, oriented x3, mood and affect normal. Results CBC & Chem 7: 11/14/23 05:27 11/14/23 05:27 Labs: Abnormal Lab Results - Last 24 Hours (Table) 11/10/23 11/10/23 11/10/23 Range/Units 23:30 23:30 23:34 RBC 2.82 L (3.80-5.40) m/uL Hgb 8.8 L (11.4-16.0) gm/dL Hct 24.8 L (34.0-46.0) % Lymphocytes # 0.6 L (1.0-4.8) k/uL Calcium 8.1 L (8.4-10.2) mg/dL Total Bilirubin 1.5 H (0.2-1.3) mg/dL AST 44 H (14-36) U/L Alkaline Phosphatase 127 H (38-126) U/L Total Protein 5.4 L (6.3-8.2) g/dL Albumin 3.0 L (3.5-5.0) g/dL Urine Appearance Cloudy H (Clear) Urine Protein 1+ H (Negative) Urine Nitrite Positive H (Negative) Ur Leukocyte Esterase Moderate H (Negative) Urine WBC 41 H (0-5) /hpf Ur Squamous Epith Cells 9 H (0-4) /hpf Amorphous Sediment Rare H (None) /hpf Urine Bacteria Many H (None) /hpf Hyaline Casts 4 H (0-2) /lpf Urine Mucus Rare H (None) /hpf Assessment and Plan (1) Pneumonia Status: Acute Code(s): J18.9 - PNEUMONIA, UNSPECIFIED ORGANISM SNOMED Code(s): 918211887 (2) UTI (urinary tract infection) Status: Acute Code(s): N39.0 - URINARY TRACT INFECTION, SITE NOT SPECIFIED SNOMED Code(s): 17163808 Plan: 1patient presented to hospital with fever source is multifactorial in this patient who did have both pulmonary and urinary symptoms did have a positive UA and also chest x-ray with the new right middle and lower lobe infiltrate patient was also complaining of erythema to the left hip surgical site however I did not appreciate any erythema to the surgical site and clinical suspicion low for surgical site infection. 2we will try to obtain a sputum for Gram stain culture check a CRP procalcitonin level and wait for urine culture to finalize 3-patient to continue with Rocephin and Zithromax while waiting for the workup to be completed We will follow on clinical condition and cultures to further adjust medication if needed Thank you for this consultation we will follow the patient along with you Dictation was produced using [employer] dictation software. please excuse any grammatical, word or spelling errors. Time with Patient: Greater than 30
[2023-11-11] MEDS: OXYBUTYNIN 15 MG TAB.ER.24 PO SCH (22:00)
[2023-11-11] MEDS: ZOLPIDEM 5 MG TAB PO SCH (22:00)
[2023-11-11] MEDS: SODIUM CHLORIDE 0.9% 1,000 ML IV SCH (23:20)
[2023-11-12] MEDS: HYDROmorphone 1 MG/ML 1 ML SYRINGE IVP PRN (02:41)
[2023-11-12] MEDS: ONDANSETRON 4 MG/2 ML VIAL IVP PRN (03:02)
--- NOTE | 2023-11-12 07:04 | XR ---
EXAMINATION TYPE: XR chest 1V portable DATE OF EXAM: 11/12/2023 COMPARISON: 11/10/2023 HISTORY: Pneumonia TECHNIQUE: Single frontal view of the chest is obtained. FINDINGS: The partially consolidative opacity involving the right middle and lower lung zone is essentially unc hanged compared to previous. The left lung remains clear. There is no pleural effusion or pneumothorax. Heart and pulmonary vasculature are normal. The osseous structures are intact. IMPRESSION: No change in the right lung infiltrate.
--- NOTE | 2023-11-12 07:52 | P.PN ---
Subjective Progress Note Date: 11/12/23 Principal diagnosis: Status post left total hip arthroplasty The patient is a 43-year-old female who presented to the emergency Department with shortness of breath and cough. The patient is status post left total hip arthroplasty on 11/01/[address] Cristiano Wheeler. She did have pain control issues after surgery and she was managed by pain management but was unable to sustain good control with pain medications at home. She began to have difficulty in breathing and some redness to her hip incision and she was advised to come to the ER by her home physical therapist. Today, she continues to have severe pain in the left hip and shortness of breath. She is currently on IV antibiotics for pneumonia and a UTI. No new complaints today. Objective - Vital Signs Vital signs: Vital Signs Temp 97.7 F 11/12/23 02:45 Pulse 75 11/12/23 04:19 Resp 15 11/12/23 02:45 BP 96/63 11/12/23 02:45 Pulse Ox 99 11/12/23 02:45 FiO2 Intake & Output 11/11/23 11/12/23 11/12/23 18:59 06:59 18:59 Other: Voiding Method Toilet # Voids 1 4 - Exam The patient does not appear in acute distress. Alert and orientated x3. Incision appears fine with no active drainage. No erythema and no warmth to the incision. Calf is soft and nontender. Good foot and ankle motion without difficulty. Sensation and circulatory status is intact. - Labs CBC & Chem 7: 11/10/23 23:30 11/10/23 23:30 Labs: Microbiology - Last 24 Hours (Table) 11/11/23 00:05 Blood Culture - Preliminary Blood 11/10/23 23:50 Blood Culture - Preliminary Blood Assessment and Plan (1) Pneumonia Current Visit: Yes Status: Acute Code(s): J18.9 - PNEUMONIA, UNSPECIFIED ORGANISM SNOMED Code(s): 625738070 (2) Post-op pain Current Visit: No Status: Acute Code(s): G89.18 - OTHER ACUTE POSTPROCEDURAL PAIN SNOMED Code(s): 687946671 (3) S/P total hip arthroplasty Current Visit: No Status: Acute Code(s): Z96.649 - PRESENCE OF UNSPECIFIED ARTIFICIAL HIP JOINT SNOMED Code(s): 886882437838 Plan: The clinical findings were discussed with the patient. The case was discussed with Dr. Cristiano Wheeler. The hip incision appears stable at this time. No infection is suspected. A possible allergic reaction to the Optifoam dressing is suspected. She may keep the dressing off at this time. Continue treatment for pneumonia and UTI per internal medicine. Pain management will be consulted again to assist with her multiple medications for pain. Continue Xarelto for anticoagulation. We will continue to follow the patient peripherally.
[2023-11-12] MEDS: PANTOPRAZOLE 40 MG/10 ML VIAL IVP SCH (09:40)
[2023-11-12] MEDS: AZITHROMYCIN 500 MG TAB PO SCH (09:42)
--- NOTE | 2023-11-12 13:44 | P.PN ---
Subjective Progress Note Date: 11/12/23 * 43 years old female with past medical history of multiple medical problems including ahlos danlos syndrome psoriatic arthritis and rheumatoid arthritis, she used to take some anti-inflammatory medication but stopped it last week when she went for her left hip surgery. Because of her musculoskeletal and rheumatological diseases she developed severe osteoarthritis of the left hip. She underwent total hip replacement surgery about 1 week ago * Since she left the hospital she was feeling more short of breath, she has history of asthma and she uses inhaler and nebulizer at home, she started using them more frequently. Patient started feeling some rattle in her chest and gets short of breath so she decided to come to emergency room. Also at the same time she has a visiting nurse who noticed that her left hip incision looks hot so referred her to the emergency room as well as she has been havin g more pain in her left hip * Also patient has been complaining from dysuria and urinary discomfort but no flank pain * On admission she has low-grade fever of 100.6 * Blood pressure is borderline 94/53 * She has unremarkable CBC with WBC 4.2, hemoglobin 8.8 * BMP and liver enzymes unremarkable bilirubin 1.5 which is slightly elevated * Lactic acid normal at 0.8 * Urine analysis is abnormal suspicious for infection * M Influenza A and type B, RSV, SARS (coronavirus) are undetected * Chest x-ray showing right and middle lobe infiltrate Patient was started on ceftriaxone and Zithromax * 11/12/23: Patient seen and evaluated bedside, WBC count pending, follow-up basic metabolic workup pending, appreciate input from infectious disease PHYSICAL EXAMINATION: GENERAL: The patient is alert and oriented x3, not in any acute distress. Well developed, well nourished. HEENT: Pupils are round and equally reacting to light. EOMI. . Normocephalic, atraumatic. No pharyngeal erythema. No thyromegaly. CARDIOVASCULAR: S1 and S2 present. No murmurs, rubs, or gallops. PULMONARY: Chest is clear to auscultation, no wheezing or crackles. ABDOMEN: Soft, nontender, nondistended, normoactive bowel sounds. No palpable organomegaly. MUSCULOSKELETAL: Wound bandage EXTREMITIES: No cyanosis, clubbing, or pedal edema. NEUROLOGICAL: Gross neurological examination did not reveal any focal deficits. SKIN: No rashes. Assessment and plan * Right middle lower lobe pneumonia * Acute urinary tract infection * Sepsis secondary to above * Severe osteoarthritis secondary to rheumatological disease s/p left total hip replacement therapy 1 week earlier * ahlos danlos syndrome * psoriatic arthritis * rheumatoid arthritis * Asthma * Obesity with BMI 35.5 Plan: * In regards to right-sided pneumonia continue patient on Rocephin and azithromycin, will need speech therapy evaluation aspiration precautions, encourage use of incentive spirometer * Regards to urinary tract infection, follow-up on urine cultures continue Rocephin, * Regards to sepsis, continue fluid resuscitation, follow-up on blood work and blood cultures * Plans to recent left hip arthroplasty seen by orthopedic wound repair stable * In regards to chronic pain continue home regimen, transition to IV morphine. Patient said Dilaudid not helpful * Appreciate input from infectious disease Objective - Vital Signs Vital signs: Vital Signs Temp 97.6 F 11/12/23 07:14 Pulse 74 11/12/23 10:25 Resp 18 11/12/23 07:14 BP 93/60 11/12/23 07:14 Pulse Ox 99 11/12/23 07:14 FiO2 Intake & Output 11/11/23 11/12/23 11/12/23 18:59 06:59 18:59 Other: Voiding Method Toilet # Voids 1 4 - Labs CBC & Chem 7: 11/10/23 23:30 11/10/23 23:30 Labs: Microbiology - Last 24 Hours (Table) 11/11/23 12:35 Gram Stain - Preliminary Sputum 11/11/23 00:05 Blood Culture - Preliminary Blood 11/10/23 23:50 Blood Culture - Preliminary Blood
[2023-11-12 13:51] LABS: HCT 26.5 % (34.0-46.0); HGB 8.6 gm/dL (11.4-16.0); Hypochromasia Slight; MCHC 32.5 g/dL (31.0-37.0); MCV 89.4 fL (80.0-100.0); Mean Platelet Volume 7.7; Platelet Count 296 k/uL (150-450); RBC 2.96 m/uL (3.80-5.40); RDW 12.7 % (11.5-15.5)
[2023-11-12 14:03] LABS: African American GFR (CKD) >90 (>60 ml/min/1.73 sqM); Anion Gap 8 mmol/L; Blood Urea Nitrogen 6 mg/dL (7-17); Calcium 8.1 mg/dL (8.4-10.2); Carbon Dioxide 21 mmol/L (22-30); Chloride 111 mmol/L (98-107); Glucose 121 mg/dL (74-99); Non-African American GFR(CKD) >90 (>60 ml/min/1.73 sqM); Potassium 3.6 mmol/L (3.5-5.1); Sodium 140 mmol/L (137-145)
[2023-11-12] MEDS: MORPHINE SULFATE 4 MG/ML SYRINGE IVP PRN (16:03)
[2023-11-13 09:26] LABS: HCT 25.7 % (37.2-46.3); HGB 8.3 g/dL (12.0-15.0); MCH 28.9 pg (27.0-32.0); MCHC 32.3 g/dL (32.0-37.0); MCV 89.5 FL (80.0-97.0); Mean Platelet Volume 9.6 FL (9.5-12.2); NRBC Per 100 WBC 0 X 10*3/uL (0.00-0.01); Platelet Count 286 X 10*3/uL (140-440); RBC 2.87 X 10*6/uL (4.10-5.20); RDW 12.1 % (11.5-14.5); WBC 3.36 X 10*3/uL (4.50-10.00)
[2023-11-13 09:45] LABS: Calcium 8.6 mg/dL (8.7-10.3); Carbon Dioxide 21.8 mmol/L (21.6-31.8); Chloride 107 mmol/L (96-109); Glucose 89 mg/dL (70-110); Potassium 4.1 mmol/L (3.5-5.5); Sodium 142 mmol/L (135-145)
--- NOTE | 2023-11-13 13:05 | P.PN ---
Subjective Progress Note Date: 11/13/23 * 43 years old female with past medical history of multiple medical problems including ahlos danlos syndrome psoriatic arthritis and rheumatoid arthritis, she used to take some anti-inflammatory medication but stopped it last week when she went for her left hip surgery. Because of her musculoskeletal and rheumatological diseases she developed severe osteoarthritis of the left hip. She underwent total hip replacement surgery about 1 week ago * Since she left the hospital she was feeling more short of breath, she has history of asthma and she uses inhaler and nebulizer at home, she started using them more frequently. Patient started feeling some rattle in her chest and gets short of breath so she decided to come to emergency room. Also at the same time she has a visiting nurse who noticed that her left hip incision looks hot so referred her to the emergency room as well as she has been havin g more pain in her left hip * Also patient has been complaining from dysuria and urinary discomfort but no flank pain * On admission she has low-grade fever of 100.6 * Blood pressure is borderline 94/53 * She has unremarkable CBC with WBC 4.2, hemoglobin 8.8 * BMP and liver enzymes unremarkable bilirubin 1.5 which is slightly elevated * Lactic acid normal at 0.8 * Urine analysis is abnormal suspicious for infection * M Influenza A and type B, RSV, SARS (coronavirus) are undetected * Chest x-ray showing right and middle lobe infiltrate Patient was started on ceftriaxone and Zithromax * 11/12/23: Patient seen and evaluated bedside, WBC count pending, follow-up basic metabolic workup pending, appreciate input from infectious disease * 11/13/23: Patient seen and evaluated bedside, patient been treated for right lower lobe pneumonia, continue with pain control CRP elevated at 5, continue to have chronic pain issues PHYSICAL EXAMINATION: GENERAL: The patient is alert and oriented x3, not in any acute distress. Well developed, well nourished. HEENT: Pupils are round and equally reacting to light. EOMI. . Normocephalic, atraumatic. No pharyngeal erythema. No thyromegaly. CARDIOVASCULAR: S1 and S2 present. No murmurs, rubs, or gallops. PULMONARY: Chest is clear to auscultation, no wheezing or crackles. ABDOMEN: Soft, nontender, nondistended, normoactive bowel sounds. No palpable organomegaly. MUSCULOSKELETAL: Wound bandage EXTREMITIES: No cyanosis, clubbing, or pedal edema. NEUROLOGICAL: Gross neurological examination did not reveal any focal deficits. SKIN: No rashes. Assessment and plan * Right middle lower lobe pneumonia * Acute urinary tract infection * Sepsis secondary to above * Severe osteoarthritis secondary to rheumatological disease s/p left total hip replacement therapy 1 week earlier * ahlos danlos syndrome * psoriatic arthritis * rheumatoid arthritis * Asthma * Obesity with BMI 35.5 Plan: * In regards to right-sided pneumonia continue patient on Rocephin day 3 and azithromycin completed , will need speech therapy evaluation aspiration precautions, encourage use of incentive spirometer * Regards to urinary tract infection, follow-up on urine cultures continue Rocephin, * Regards to sepsis, continue fluid resuscitation, follow-up on blood work and blood cultures * Plans to recent left hip arthroplasty seen by orthopedic wound repair stable * In regards to chronic pain continue home regimen, transition to IV morphine. Patient said Dilaudid not helpful * Appreciate input from infectious disease Objective - Vital Signs Vital signs: Vital Signs Temp 98.1 F 11/13/23 07:06 Pulse 72 11/13/23 10:17 Resp 17 11/13/23 07:06 BP 138/84 11/13/23 07:06 Pulse Ox 100 11/13/23 10:01 FiO2 Intake & Output 11/12/23 11/13/23 11/13/23 18:59 06:59 18:59 Other: Voiding Method Toilet # Voids 3 3 - Labs CBC & Chem 7: 11/13/23 04:44 11/13/23 04:44 Labs: Abnormal Lab Results - Last 24 Hours (Table) 11/12/23 11/12/23 11/13/23 Range/Units 13:13 13:13 04:44 WBC 3.0 L 3.36 L (3.8-10.6) k/uL RBC 2.96 L 2.87 L (3.80-5.40) m/uL Hgb 8.6 L 8.3 L (11.4-16.0) gm/dL Hct 26.5 L 25.7 L (34.0-46.0) % Chloride 111 H (98-107) mmol/L Carbon Dioxide 21 L (22-30) mmol/L Anion Gap (4.00-12.00) mmol/L BUN 6 L (7-17) mg/dL BUN/Creatinine Ratio (12.00-20.00) Ratio Glucose 121 H (74-99) mg/dL Calcium 8.1 L (8.4-10.2) mg/dL C-Reactive Protein (0.00-0.80) mg/dL 11/13/23 Range/Units 04:44 WBC (3.8-10.6) k/uL RBC (3.80-5.40) m/uL Hgb (11.4-16.0) gm/dL Hct (34.0-46.0) % Chloride (98-107) mmol/L Carbon Dioxide (22-30) mmol/L Anion Gap 13.20 H (4.00-12.00) mmol/L BUN 7.0 L (7-17) mg/dL BUN/Creatinine Ratio 10.00 L (12.00-20.00) Ratio Glucose (74-99) mg/dL Calcium 8.6 L (8.4-10.2) mg/dL C-Reactive Protein 5.40 H (0.00-0.80) mg/dL Microbiology - Last 24 Hours (Table) 11/11/23 00:05 Blood Culture - Preliminary Blood 11/10/23 23:50 Blood Culture - Preliminary Blood 11/11/23 12:35 Gram Stain - Preliminary Sputum
--- NOTE | 2023-11-13 18:20 | P.PN ---
Subjective Progress Note Date: 11/12/23 Principal diagnosis: Reason for follow-up is UTI and pneumonia Patient is a 43-year-old female with a past medical history significant for fibromyalgia hyperlipidemia liver disease reflux rheumatoid arthritis in this patient who is status post left hip arthroplasty on 11/01/[address] Wheeler presenting to the hospital for evaluation of increasing shortness of breath cough and noticed to be febrile concerning for pneumonia/UTI. On today's evaluation that is 11/12/2023,the patient did have resolution of her fever and is afebrile this morning patient is breathing comfortably on room air patient denies having any chest pain she did have a cough not bring up any sputum some nausea with vomiting no abdominal pain still complaining of pain to the left hip area but incision is intact and no drainage. Patient white count is 3.0, creatinine 0.68, CRP is 5.40 Objective - Vital Signs Vital signs: Vital Signs Temp 97.6 F 11/12/23 07:14 Pulse 74 11/12/23 10:25 Resp 18 11/12/23 07:14 BP 93/60 11/12/23 07:14 Pulse Ox 99 11/12/23 07:14 FiO2 Intake & Output 11/11/23 11/12/23 11/12/23 18:59 06:59 18:59 Other: Voiding Method Toilet # Voids 1 4 - Exam GENERAL DESCRIPTION: Middle-aged female lying in bed in no distress RESPIRATORY SYSTEM: Unlabored breathing , decreased breath sounds at bases HEART: S1 S2 regular rate and rhythm , ABDOMEN: Soft , no tenderness EXTREMITIES: No edema feet - Labs CBC & Chem 7: 11/13/23 04:44 11/13/23 04:44 Labs: Microbiology - Last 24 Hours (Table) 11/11/23 12:35 Gram Stain - Preliminary Sputum 11/11/23 00:05 Blood Culture - Preliminary Blood 11/10/23 23:50 Blood Culture - Preliminary Blood Assessment and Plan (1) UTI (urinary tract infection) Current Visit: Yes Status: Acute Code(s): N39.0 - URINARY TRACT INFECTION, SITE NOT SPECIFIED SNOMED Code(s): 84333776 (2) Pneumonia Current Visit: Yes Status: Acute Code(s): J18.9 - PNEUMONIA, UNSPECIFIED ORGANISM SNOMED Code(s): 109714409 Plan: 1patient presented to hospital with fever source is multifactorial in this patient who did have both pulmonary and urinary symptoms did have a positive UA and also chest x-ray with the new right middle and lower lobe infiltrate patient was also complaining of erythema to the left hip surgical site however I did not appreciate any erythema to the surgical site and clinical suspicion low for surgical site infection. 2sputum cultures currently pending blood cultures pending did have elevated CRP procalcitonin not done 3-patient to continue with Rocephin and Zithromax while waiting for the culture to finalize Dictation was produced using [employer] dictation software. please excuse any gram matical, word or spelling errors. Time with Patient: Less than 30
--- NOTE | 2023-11-13 18:21 | P.PN ---
Subjective Progress Note Date: 11/13/23 Principal diagnosis: Reason for follow-up is UTI and pneumonia Patient is a 43-year-old female with a past medical history significant for fibromyalgia hyperlipidemia liver disease reflux rheumatoid arthritis in this patient who is status post left hip arthroplasty on 11/01/[address] Wheeler presenting to the hospital for evaluation of increasing shortness of breath cough and noticed to be febrile concerning for pneumonia/UTI. On today's evaluation that is 11/13/2023,the patient remains to be afebrile, patient is on room air not requiring supplemental oxygen and denies any shortness of breath no chest pain and cough has decreased in intensity.Patient denies having any nausea or vomiting, no abdominal pain and no diarrhea has been reported. The patient white count is 3.36, creatinine 0.7 sputum culture negative blood culture negative urine culture not done Objective - Vital Signs Vital signs: Vital Signs Temp 98.5 F 11/13/23 13:04 Pulse 68 11/13/23 16:44 Resp 16 11/13/23 13:04 BP 89/55 11/13/23 13:04 Pulse Ox 98 11/13/23 13:04 FiO2 Intake & Output 11/12/23 11/13/23 11/13/23 18:59 06:59 18:59 Other: Voiding Method Toilet Toilet # Voids 3 3 3 - Exam GENERAL DESCRIPTION: Middle-aged female lying in bed in no distress RESPIRATORY SYSTEM: Unlabored breathing , decreased breath sounds at bases HEART: S1 S2 regular rate and rhythm , ABDOMEN: Soft , no tenderness EXTREMITIES: No edema feet - Labs CBC & Chem 7: 11/13/23 04:44 11/13/23 04:44 Labs: Abnormal Lab Results - Last 24 Hours (Table) 11/13/23 11/13/23 Range/Units 04:44 04:44 WBC 3.36 L (4.50-10.00) X 10*3/uL RBC 2.87 L (4.10-5.20) X 10*6/uL Hgb 8.3 L (12.0-15.0) g/dL Hct 25.7 L (37.2-46.3) % Anion Gap 13.20 H (4.00-12.00) mmol/L BUN 7.0 L (9.0-27.0) mg/dL BUN/Creatinine Ratio 10.00 L (12.00-20.00) Ratio Calcium 8.6 L (8.7-10.3) mg/dL C-Reactive Protein 5.40 H (0.00-0.80) mg/dL Microbiology - Last 24 Hours (Table) 11/11/23 12:35 Gram Stain - Final Sputum Sputum Culture - Final 11/11/23 00:05 Blood Culture - Preliminary Blood 11/10/23 23:50 Blood Culture - Preliminary Blood Assessment and Plan (1) UTI (urinary tract infection) Current Visit: Yes Status: Acute Code(s): N39.0 - URINARY TRACT INFECTION, SITE NOT SPECIFIED SNOMED Code(s): 90457090 (2) Pneumonia Current Visit: Yes Status: Acute Code(s): J18.9 - PNEUMONIA, UNSPECIFIED ORGANISM SNOMED Code(s): 782504694 Plan: 1patient presented to hospital with fever source is multifactorial in this pa tient who did have both pulmonary and urinary symptoms did have a positive UA and also chest x-ray with the new right middle and lower lobe infiltrate patient was also complaining of erythema to the left hip surgical site however I did not appreciate any erythema to the surgical site and clinical suspicion low for surgical site infection. 2the patient blood and sputum culture has been negative so far did have elevated CRP procalcitonin not done 3-patient to continue with Rocephin, has completed 3-day course of Zithromax, plan is for total of 5-day course of antibiotic therapy Dictation was produced using [employer] dictation software. please excuse any grammatical, word or spelling errors. Time with Patient: Less than 30
[2023-11-14 08:16] VITALS: BP 110/69; PULSE 63; RESP 17; TEMP 98
[2023-11-14 08:26] LABS: HCT 26.4 % (37.2-46.3); HGB 8.6 g/dL (12.0-15.0); MCHC 32.6 g/dL (32.0-37.0); MCV 88.9 FL (80.0-97.0); Mean Platelet Volume 9.3 FL (9.5-12.2); NRBC Per 100 WBC 0 X 10*3/uL (0.00-0.01); Platelet Count 295 X 10*3/uL (140-440); RBC 2.97 X 10*6/uL (4.10-5.20); RDW 12.3 % (11.5-14.5); WBC 3.76 X 10*3/uL (4.50-10.00)
[2023-11-14 08:38] LABS: BUN/Creat Ratio 9.12 Ratio (12.00-20.00); Blood Urea Nitrogen 7.3 mg/dL (9.0-27.0); Calcium 8.6 mg/dL (8.7-10.3); Carbon Dioxide 23.6 mmol/L (21.6-31.8); Chloride 107 mmol/L (96-109); Glucose 84 mg/dL (70-110); Potassium 4.3 mmol/L (3.5-5.5); Sodium 142 mmol/L (135-145)
--- NOTE | 2023-11-14 13:30 | P.DS ---
Providers Date of admission: 11/11/23 01:04 Expected date of discharge: 11/14/23 Attending physician: Lin Lema Consults: 11/11/23 00:58 Consult Physician Routine Consulting Provider: Cristiano Wheeler Consult Reason/Comments: your post-operative patient. Incisional erythema Do you want consulting provider notified?: Yes 11/11/23 08:57 Consult Physician Routine Consulting Provider: Anastasiia Hale Consult Reason/Comments: pain management Do you want consulting provider notified?: Yes 11/11/23 12:32 Consult Physician Routine Consulting Provider: Jeanna Woods Consult Reason/Comments: pna and uti Do you want consulting provider notified?: Yes Primary care physician: [facility] Course: * 43 years old female with past medical history of multiple medical problems including ahlos danlos syndrome psoriatic arthritis and rheumatoid arthritis, she used to take some anti-inflammatory medication but stopped it last week when she went for her left hip surgery. Because of her musculoskeletal and rheumatological diseases she developed severe osteoarthritis of the left hip. She underwent total hip replacement surgery about 1 week ago * Since she left the hospital she was feeling more short of breath, she has history of asthma and she uses inhaler and nebulizer at home, she started using them more frequently. Patient started feeling some rattle in her chest and gets short of breath so she decided to come to emergency room. Also at the same time she has a visiting nurse who noticed that her left hip incision looks hot so referred her to the emergency room as well as she has been having more pain in her left hip * Also patient has been complaining from dysuria and urinary discomfort but no flank pain * On admission she has low-grade fever of 100.6 * Blood pressure is borderline 94/53 * She has unremarkable CBC with WBC 4.2, hemoglobin 8.8 * BMP and liver enzymes unremarkable bilirubin 1.5 which is slightly elevated * Lactic acid normal at 0.8 * Urine analysis is abnormal suspicious for infection * M Influenza A and type B, RSV, SARS (coronavirus) are undetected * Chest x-ray showing right and middle lobe infiltrate Patient was started on c eftriaxone and Zithromax * 11/12/23: Patient seen and evaluated bedside, WBC count pending, follow-up basic metabolic workup pending, appreciate input from infectious disease * 11/13/23: Patient seen and evaluated bedside, patient been treated for right lower lobe pneumonia, continue with pain control CRP elevated at 5, continue to have chronic pain issues * 11/14/23: Patient seen and evaluated at bedside, patient remains on room air. Blood work reviewed hemoglobin 8.6 WBC 3.76 platelet count of 295 serum chemistry reviewed CRP elevated at 5.4. Patient was discharged on oral antibiotics prescription provided PHYSICAL EXAMINATION: GENERAL: The patient is alert and oriented x3, not in any acute distress. Well developed, well nourished. HEENT: Pupils are round and equally reacting to light. EOMI. . Normocephalic, atraumatic. No pharyngeal erythema. No thyromegaly. CARDIOVASCULAR: S1 and S2 present. No murmurs, rubs, or gallops. PULMONARY: Chest is clear to auscultation, no wheezing or crackles. ABDOMEN: Soft, nontender, nondistended, normoactive bowel sounds. No palpable organomegaly. MUSCULOSKELETAL: Wound bandage EXTREMITIES: No cyanosis, clubbing, or pedal edema. NEUROLOGICAL: Gross neurological examination did not reveal any focal deficits. SKIN: No rashes. Assessment and plan * Right middle lower lobe pneumonia * Acute urinary tract infection * Sepsis secondary to above * Severe osteoarthritis secondary to rheumatological disease s/p left total hip replacement therapy 1 week earlier * Ehlos danlos syndrome * psoriatic arthritis * rheumatoid arthritis * Asthma * Obesity with BMI 35.5 Plan: * In regards to right-sided pneumonia continue patient on Rocephin day 4/5 , patient to Ceftin and azithromycin completed , will need speech therapy evaluation aspiration precautions, encourage use of incentive spirometer * Regards to urinary tract infection, follow-up on urine cultures , transition to Ceftin * Regards to sepsis, continue fluid resuscitation, follow-up on blood cultures * Plans to recent left hip arthroplasty seen by orthopedic wound repair stable * In regards to chronic pain continue home regimen, transition to IV morphine. Patient said Dilaudid not helpful * Appreciate input from infectious disease Patient Condition at Discharge: Fair Plan - Discharge Summary Discharge Rx Participant: Yes New Discharge Prescriptions: New cefUROXime axetiL [Ceftin] 500 mg PO BID 1 Days #2 tab Continue Montelukast Sodium [Singulair] 10 mg PO HS Dicyclomine [Bentyl] 10 mg PO QID PRN PRN Reason: IBS Erenumab-Aooe [Aimovig Autoinjector] 140 mg SQ Q30D medroxyPROGESTERone [Depo-Provera] 150 mg IM Q90D Aspirin EC [Ecotrin Low Dose] 81 mg PO DAILY Cholecalciferol [Vitamin D3 (25 Mcg = 1000 Iu)] 25 mcg PO DAILY Nystatin 100,000 Unit/ml Susp [Mycostatin Oral Susp] 4 ml PO QID PRN PRN Reason: Yeast Infection Albuterol Inhaler [Ventolin Hfa Inhaler] 1 - 2 puff INHALATION RT-Q6H PRN PRN Reason: Shortness Of Breath Secukinumab [Cosentyx Sensoready (2 Pens)] 300 mg SQ Q30D Rivaroxaban [Xarelto] 10 mg PO DAILY #30 tab Clindamycin Gel [Cleocin T 1% Gel] 1 applic TOPICAL BID #1 each Clobetasol Propionate [Temovate 0.05% Cream] 1 applic TOPICAL HS #1 each Albuterol Nebulized [Ventolin Nebulized] 2.5 mg INHALATION RT-Q6H PRN PRN Reason: Shortness Of Breath Morphine Sulfate Ir [MSIR] 30 mg PO Q4H MDD 5 tabs Sennosides-Docusate Sodium [Senokot-S] 2 tab PO HS Famotidine [Pepcid] 20 mg PO BID Rimegepant Sulfate [Nurtec Odt] 75 mg PO DAILY PRN PRN Reason: Migraine Headache clonazePAM 2 mg PO HS Metoprolol Tartrate [Lopressor] 25 mg PO HS diphenhydrAMINE HCL [Benadryl] 25 mg PO HS Nitroglycerin Sl Tabs [Nitrostat] 0.4 mg SUBLINGUAL Q5M PRN PRN Reason: Chest Pain Oxybutynin ER [Ditropan XL] 15 mg PO HS Zolpidem Tartrate [Ambien] 5 mg PO HS Atorvastatin [Lipitor] 40 mg PO DAILY Pantoprazole [Protonix] 40 mg PO QID Lisdexamfetamine Dimesylate [Vyvanse] 60 mg PO DAILY Escitalopram [Lexapro] 10 mg PO HS tiZANidine [Zanaflex] 4 mg PO TID PRN PRN Reason: Pain Cetirizine HCl [Zyrtec] 10 mg PO HS Magnesium Hydroxide [Milk of Magnesia] 2,400 mg PO DAILY PRN #30 each PRN Reason: Constipation Hydrocortisone Cream [Hydrocortisone 2.5% Cream] 1 applic TOPICAL HS #1 each metroNIDAZOLE 0.75% CREAM [Metrocream 0.75%] 1 applic TOPICAL DAILY #1 each Discharge Medication List Montelukast Sodium [Singulair] 10 mg PO HS 08/13/18 [History] Dicyclomine [Bentyl] 10 mg PO QID PRN 02/17/21 [History] Famotidine [Pepcid] 20 mg PO BID 02/17/21 [History] Rimegepant Sulfate [Nurtec Odt] 75 mg PO DAILY PRN 02/17/21 [History] Erenumab-Aooe [Aimovig Autoinjector] 140 mg SQ Q30D 08/04/21 [History] Metoprolol Tartrate [Lopressor] 25 mg PO HS 10/21/22 [History] clonazePAM 2 mg PO HS 10/21/22 [History] medroxyPROGESTERone [Depo-Provera] 150 mg IM Q90D 10/21/22 [History] Aspirin EC [Ecotrin Low Dose] 81 mg PO DAILY 11/22/22 [History] Nitroglycerin Sl Tabs [Nitrostat] 0.4 mg SUBLINGUAL Q5M PRN 11/22/22 [History] Oxybutynin ER [Ditropan XL] 15 mg PO HS 11/22/22 [History] diphenhydrAMINE HCL [Benadryl] 25 mg PO HS 11/22/22 [History] Cholecalciferol [Vitamin D3 (25 Mcg = 1000 Iu)] 25 mcg PO DAILY 01/25/23 [History] Atorvastatin [Lipitor] 40 mg PO DAILY 08/05/23 [History] Lisdexamfetamine Dimesylate [Vyvanse] 60 mg PO DAILY 08/05/23 [History] Nystatin 100,000 Unit/ml Susp [Mycostatin Oral Susp] 4 ml PO QID PRN 08/05/23 [History] Pantoprazole [Protonix] 40 mg PO QID 08/05/23 [History] Zolpidem Tartrate [Ambien] 5 mg PO HS 08/05/23 [History] Albuterol Inhaler [Ventolin Hfa Inhaler] 1 - 2 puff INHALATION RT-Q6H PRN 10/27/23 [History] Cetirizine HCl [Zyrtec] 10 mg PO HS 10/27/23 [History] Escitalopram [Lexapro] 10 mg PO HS 10/27/23 [History] Secukinumab [Cosentyx Sensoready (2 Pens)] 300 mg SQ Q30D 10/27/23 [History] tiZANidine [Zanaflex] 4 mg PO TID PRN 10/27/23 [History] Rivaroxaban [Xarelto] 10 mg PO DAILY #30 tab 11/01/23 [Rx] Clindamycin Gel [Cleocin T 1% Gel] 1 applic TOPICAL BID #1 each 11/07/23 [Rx] Clobetasol Propionate [Temovate 0.05% Cream] 1 applic TOPICAL HS #1 each 11/07/23 [Rx] Hydrocortisone Cream [Hydrocortisone 2.5% Cream] 1 applic TOPICAL HS #1 each 11/07/23 [Rx] Magnesium Hydroxide [Milk of Magnesia] 2,400 mg PO DAILY PRN #30 each 11/07/23 [Rx] metroNIDAZOLE 0.75% CREAM [Metrocream 0.75%] 1 applic TOPICAL DAILY #1 each 11/07/23 [Rx] Albuterol Nebulized [Ventolin Nebulized] 2.5 mg INHALATION RT-Q6H PRN 11/11/23 [History] Morphine Sulfate Ir [MSIR] 30 mg PO Q4H MDD 5 tabs 11/11/23 [History] Sennosides-Docusate Sodium [Senokot-S] 2 tab PO HS 11/11/23 [History] cefUROXime axetiL [Ceftin] 500 mg PO BID 1 Days #2 tab 11/14/23 [Rx] Follow up Appointment(s)/Referral(s): Santosh Mccord DO [Primary Care Provider] - 1-2 days [facility] [[facility]] - As Needed ([facility] will call you to schedule your in home nursing, physical therapy, and speech therapy visits.) Discharge Disposition: HOME SELF-CARE
--- NOTE | 2023-11-21 16:39 | P.PN ---
Subjective Progress Note Date: 11/14/23 Principal diagnosis: Reason for follow-up is UTI and pneumonia Patient is a 43-year-old female with a past medical history significant for fibromyalgia hyperlipidemia liver disease reflux rheumatoid arthritis in this patient who is status post left hip arthroplasty on 11/01/[address] Wheeler presenting to the hospital for evaluation of increasing shortness of breath cough and noticed to be febrile concerning for pneumonia/UTI. On today's evaluation that is 11/14/2023, Patient is afebrile patient is currently on room air and denies having any shortness of breath, the patient denies any chest pain, cough is decreased in intensity mostly dry, the patient denies any nausea vomiting did not have any abdominal pain and no diarrhea pain and swelling to the left thigh area has improved feeling better wants to go home. Patient did have a white count of 3.76 creatinine 0.8 blood culture sputum culture has been negative Objective - Vital Signs Vital signs: Vital Signs Temp 98.0 F 11/14/23 07:02 Pulse 63 11/14/23 07:02 Resp 17 11/14/23 07:02 BP 110/69 11/14/23 07:02 Pulse Ox 99 11/14/23 07:02 FiO2 Intake & Output 11/13/23 11/14/23 11/14/23 18:59 06:59 18:59 Intake Total 540 Balance 540 Intake: Oral 540 Other: Voiding Method Toilet Toilet Toilet # Voids 3 3 - Exam GENERAL DESCRIPTION: Middle-aged female lying in bed in no distress RESPIRATORY SYSTEM: Unlabored breathing , decreased breath sounds at bases HEART: S1 S2 regular rate and rhythm , ABDOMEN: Soft , no tenderness EXTREMITIES: No edema feet - Labs CBC & Chem 7: 11/14/23 05:27 11/14/23 05:27 Labs: Abnormal Lab Results - Last 24 Hours (Table) 11/14/23 11/14/23 Range/Units 05:27 05:27 WBC 3.76 L (4.50-10.00) X 10*3/uL RBC 2.97 L (4.10-5.20) X 10*6/uL Hgb 8.6 L (12.0-15.0) g/dL Hct 26.4 L (37.2-46.3) % MPV 9.3 L (9.5-12.2) FL BUN 7.3 L (9.0-27.0) mg/dL BUN/Creatinine Ratio 9.12 L (12.00-20.00) Ratio Calcium 8.6 L (8.7-10.3) mg/dL Microbiology - Last 24 Hours (Table) 11/11/23 00:05 Blood Culture - Preliminary Blood 11/10/23 23:50 Blood Culture - Preliminary Blood 11/11/23 12:35 Gram Stain - Final Sputum Sputum Culture - Final Assessment and Plan (1) UTI (urinary tract infection) Status: Acute Code(s): N39.0 - URINARY TRACT INFECTION, SITE NOT SPECIFIED SNOMED Code(s): 26499546 (2) Pneumonia Status: Acute Code(s): J18.9 - PNEUMONIA, UNSPECIFIED ORGANISM SNOMED Code(s): 924700049 Plan: 1patient presented to hospital with fever source is multifactorial in this patient who did have both pulmonary and urinary symptoms did have a positive UA and also chest x-ray with the new right middle and lower lobe infiltrate patient was also complaining of erythema to the left hip surgical site however I did not appreciate any erythema to the surgical site and clinical suspicion low for surgical site infection. 2the patient blood and sputum culture has been negative so far did have elevated CRP procalcitonin not done 3-patient has shown overall clinical improvement plan is for total of 5-day course of antibiotic therapy to finish treatment for underlying community- acquired pneumonia this has been discussed with the admitting physician working on discharge Dictation was produced using [employer] dictation software. please excuse any grammatical, word or spelling errors. Time with Patient: Less than 30
== END 2023-11-14 15:41 | disposition home or self-care (01) | DRG 871 ==
LOC: EC 21:38 → EEVIPCON 11-11 01:04 → 4SSUR 11-11 01:04
PROVIDERS: ADMIT Hospitalist; ATTEND Hospitalist
DX: A41.9 Sepsis, unspecified organism (principal); J18.9 Pneumonia, unspecified organism; N39.0 Urinary tract infection, site not specified; Q79.60 Ehlers-Danlos syndrome, unspecified; T84.84XA Pain due to internal orthopedic prosthetic devices, implants and grafts, initial encounter; E66.9 Obesity, unspecified; E78.5 Hyperlipidemia, unspecified; F32.A Depression, unspecified; F41.9 Anxiety disorder, unspecified; F90.9 Attention-deficit hyperactivity disorder, unspecified type; R79.82 Elevated C-reactive protein (CRP); G89.29 Other chronic pain; G90.A Postural orthostatic tachycardia syndrome [POTS]; M32.9 Systemic lupus erythematosus, unspecified; G43.909 Migraine, unspecified, not intractable, without status migrainosus; J45.909 Unspecified asthma, uncomplicated; K58.9 Irritable bowel syndrome, unspecified; K21.9 Gastro-esophageal reflux disease without esophagitis; K76.0 Fatty (change of) liver, not elsewhere classified; L40.50 Arthropathic psoriasis, unspecified; M06.9 Rheumatoid arthritis, unspecified; M79.7 Fibromyalgia; Z68.35 Body mass index [BMI] 35.0-35.9, adult; Z79.01 Long term (current) use of anticoagulants; Y79.3 Surgical instruments, materials and orthopedic devices (including sutures) associated with adverse incidents; Z79.82 Long term (current) use of aspirin; Z79.899 Other long term (current) drug therapy; Z96.642 Presence of left artificial hip joint; Z28.21 Immunization not carried out because of patient refusal; Z87.440 Personal history of urinary (tract) infections; Z88.6 Allergy status to analgesic agent
CPT/HCPCS: 36415; 71045; 71046; 80048; 80053; 81001; 83605; 85025; 85027; 86140; 87040; 87070; 87205; 87449; 87636; 94640; 94760; 96361; 96365; 96375; 99285

== ENCOUNTER → 2023-11-22 | Outpatient (CLI) | payer MEDICARE, OTHER ==
--- NOTE | 2023-11-22 15:47 | XR ---
EXAMINATION TYPE: XR chest 2V DATE OF EXAM: 11/22/2023 3:00 PM CLINICAL INDICATION:Female, 43 years old with history of J18.9 PNEUMONIA; COMPARISON: Chest radiographs from 11/12/2023 TECHNIQUE: XR chest 2V Frontal and lateral views of the chest. FINDINGS: Lungs/Pleura: There is no evidence of pleural effusion, focal consolidation, or pneumothorax. Pulmonary vascularity: Unremarkable. Heart/mediastinum: Cardiomediastinal silhouette is unremarkable. Musculoskeletal: No acute osseous pathology. Other findings: None Lines/Tubes: Right internal jugular central venous catheter with distal tip at the cavoatrial junction. IMPRESSION: No acute cardiopulmonary disease/process.
== END | disposition home or self-care (01) ==
LOC: LABWHC1 14:45
PROVIDERS: ATTEND Family Medicine
DX: J18.9 Pneumonia, unspecified organism (principal)
CPT/HCPCS: 71046

== ENCOUNTER 2023-12-01 19:38 | Inpatient (IN) | payer MEDICARE, OTHER ==
[2023-12-01 20:15] LABS: Basophils # (A) 0.1 k/uL (0-0.2); Basophils % (A) 1 %; Eosinophils # (A) 0.3 k/uL (0-0.7); Eosinophils % (A) 4 %; HCT 43.6 % (34.0-46.0); Hypochromasia Slight; Lymphocytes # (A) 2.1 k/uL (1.0-4.8); Lymphocytes % (A) 37 %; MCH 27.3 pg (25.0-35.0); MCHC 31.7 g/dL (31.0-37.0); MCV 86.1 fL (80.0-100.0); Mean Platelet Volume 7.6; Monocytes # (A) 0.4 k/uL (0-1.0); Monocytes % (A) 7 %; Neutrophils # (A) 2.8 k/uL (1.3-7.7); Neutrophils % (A) 48 %; Platelet Count 339 k/uL (150-450); Poikilocytosis Slight; RBC 5.06 m/uL (3.80-5.40); RDW 13.8 % (11.5-15.5); WBC 5.8 k/uL (3.8-10.6)
[2023-12-01 20:25] LABS: ALT 21 U/L (4-34); AST 34 U/L (14-36); African American GFR (CKD) 82 (>60 ml/min/1.73 sqM); Albumin 4.9 g/dL (3.5-5.0); Alkaline Phosphatase 126 U/L (38-126); Amylase 112 U/L (30-110); Anion Gap 13 mmol/L; Blood Urea Nitrogen 15 mg/dL (7-17); Calcium 9.5 mg/dL (8.4-10.2); Carbon Dioxide 18 mmol/L (22-30); Chloride 108 mmol/L (98-107); Glucose 107 mg/dL (74-99); Lipase 615 U/L (23-300); Non-African American GFR(CKD) 71 (>60 ml/min/1.73 sqM); Potassium 3.7 mmol/L (3.5-5.1); Sodium 139 mmol/L (137-145); Total Bilirubin 2.2 mg/dL (0.2-1.3); Total Protein 7.8 g/dL (6.3-8.2)
[2023-12-01] MEDS: SODIUM CHLORIDE 0.9% 1,000 ML IV ONE (20:25)
[2023-12-01] MEDS: ONDANSETRON 4 MG/2 ML VIAL IVP STA (20:27)
[2023-12-01 20:41] LABS: HGB 13.8 gm/dL (11.4-16.0)
--- NOTE | 2023-12-01 21:04 | ED ---
General Adult HPI - General Chief complaint: Nausea/Vomiting/Diarrhea Stated complaint: Abd pain,vomiting Time Seen by Provider: 12/01/23 19:55 Source: patient Mode of arrival: ambulatory Limitations: no limitations - History of Present Illness Initial comments: 43-year-old female presenting with chief complaint of nausea and vomiting. Patient has had nausea and vomiting as well as generalized abdominal pain ongoing for the last 3 to 4 days. States that she is unable to eat. She admits to diarrhea. She also admits to low-grade fever. She has been feeling fatigued and generally weak. She had a recent hip replacement and did have some complications regarding healing, however she seems to be improving in this regard and is having no change in pain or swelling to the area. - Related Data Home Medications Medication Instructions Recorded Confirmed Montelukast Sodium [Singulair] 10 mg PO HS 08/13/18 11/11/23 Dicyclomine [Bentyl] 10 mg PO QID PRN 02/17/21 11/11/23 Famotidine [Pepcid] 20 mg PO BID 02/17/21 11/11/23 Rimegepant Sulfate [Nurtec Odt] 75 mg PO DAILY PRN 02/17/21 11/11/23 Erenumab-Aooe [Aimovig 140 mg SQ Q30D 08/04/21 11/11/23 Autoinjector] Metoprolol Tartrate [Lopressor] 25 mg PO HS 10/21/22 11/11/23 clonazePAM 2 mg PO HS 10/21/22 11/11/23 medroxyPROGESTERone [Depo-Provera] 150 mg IM Q90D 10/21/22 11/11/23 Aspirin EC [Ecotrin Low Dose] 81 mg PO DAILY 11/22/22 11/11/23 Nitroglycerin Sl Tabs [Nitrostat] 0.4 mg SUBLINGUAL Q5M PRN 11/22/22 11/11/23 Oxybutynin ER [Ditropan XL] 15 mg PO HS 11/22/22 11/11/23 diphenhydrAMINE HCL [Benadryl] 25 mg PO HS 11/22/22 11/11/23 Cholecalciferol [Vitamin D3 (25 25 mcg PO DAILY 01/25/23 11/11/23 Mcg = 1000 Iu)] Atorvastatin [Lipitor] 40 mg PO DAILY 08/05/23 11/11/23 Lisdexamfetamine Dimesylate 60 mg PO DAILY 08/05/23 11/11/23 [Vyvanse] Nystatin 100,000 Unit/ml Susp 4 ml PO QID PRN 08/05/23 11/11/23 [Mycostatin Oral Susp] Pantoprazole [Protonix] 40 mg PO QID 08/05/23 11/11/23 Zolpidem Tartrate [Ambien] 5 mg PO HS 08/05/23 11/11/23 Albuterol Inhaler [Ventolin Hfa 1 - 2 puff INHALATION RT-Q6H PRN 10/27/23 11/11/23 Inhaler] Cetirizine HCl [Zyrtec] 10 mg PO HS 10/27/23 11/11/23 Escitalopram [Lexapro] 10 mg PO HS 10/27/23 11/11/23 Secukinumab [Cosentyx Sensoready 300 mg SQ Q30D 10/27/23 11/11/23 (2 Pens)] tiZANidine [Zanaflex] 4 mg PO TID PRN 10/27/23 11/11/23 Albuterol Nebulized [Ventolin 2.5 mg INHALATION RT-Q6H PRN 11/11/23 11/11/23 Nebulized] Morphine Sulfate Ir [MSIR] 30 mg PO Q4H MDD 5 tabs 11/11/23 11/11/23 Sennosides-Docusate Sodium 2 tab PO HS 11/11/23 11/11/23 [Senokot-S] Previous Rx's Medication Instructions Recorded Rivaroxaban [Xarelto] 10 mg PO DAILY #30 tab 11/01/23 Clindamycin Gel [Cleocin T 1% Gel] 1 applic TOPICAL BID #1 each 11/07/23 Clobetasol Propionate [Temovate 1 applic TOPICAL HS #1 each 11/07/23 0.05% Cream] Hydrocortisone Cream 1 applic TOPICAL HS #1 each 11/07/23 [Hydrocortisone 2.5% Cream] Magnesium Hydroxide [Milk of 2,400 mg PO DAILY PRN #30 each 11/07/23 Magnesia] metroNIDAZOLE 0.75% CREAM 1 applic TOPICAL DAILY #1 each 11/07/23 [Metrocream 0.75%] cefUROXime axetiL [Ceftin] 500 mg PO BID 1 Days #2 tab 11/14/23 Allergies Allergy/AdvReac Type Severity Reaction Status Date / Time ibuprofen [From Motrin] AdvReac Kidney Verified 12/01/23 19:44 Failure metoclopramide HCl AdvReac Hallucinati Verified 12/01/23 19:44 [From Reglan] ons NSAIDS (Non-Steroidal AdvReac Kidney Verified 12/01/23 19:44 Anti-Inflamma Failure pregabalin [From Lyrica] AdvReac Cough Verified 12/01/23 19:44 prochlorperazine AdvReac Hallucinati Verified 12/01/23 19:44 [From Compazine] ons Review of Systems ROS Statement: Those systems with pertinent positive or pertinent negative responses have been documented in the HPI. ROS Other: All systems not noted in ROS Statement are negative. Past Medical History Past Medical History: Asthma, Chest Pain / Angina, Fibromyalgia, GERD/Reflux, Hyperlipidemia, Liver Disease, Neurologic Disorder, Rheumatoid Arthritis (RA) Additional Past Medical History / Comment(s): PSORIATIC ARTHRITIS. POTS. Chiari malformation with DIVING JUDGE shunt. Migraines. IBS. Lupus. OCCASIONAL DIZZINESS, IRREGULAR HEART RATE. HX POLYNEPHRITIS. Non-alcoholic fatty liver. History of Any Multi-Drug Resistant Organisms: None Reported Past Surgical History: Bladder Surgery, Hysterectomy, Joint Replacement, Ort hopedic Surgery, Tonsillectomy, Tubal Ligation Additional Past Surgical History / Comment(s): Chiari decompression, shunt to brain, brain surgery X5, bladder suspension, bladder lift partial hysterectomy, uterus lift, bilateral carpal tunnel. Past Anesthesia/Blood Transfusion Reactions: No Reported Reaction Past Psychological History: ADD/ADHD, Anxiety, Depression Smoking Status: Never smoker Past Alcohol Use History: None Reported Past Drug Use History: None Reported - Past Family History Mother Family Medical History: No Reported History Father Family Medical History: Unable to Obtain General Exam Limitations: no limitations General appearance: alert, in no apparent distress Head exam: Present: atraumatic, normocephalic Eye exam: Present: normal appearance, EOMI Neck exam: Present: normal inspection. Absent: meningismus Respiratory exam: Present: normal lung sounds bilaterally. Absent: respiratory distress, wheezes, rales, rhonchi, stridor Cardiovascular Exam: Present: regular rate, normal rhythm, normal heart sounds. Absent: systolic murmur, diastolic murmur, rubs, gallop, clicks GI/Abdominal exam: Present: soft, tenderness (Generally uncomfortable on palpation). Absent: distended, guarding, rebound, rigid Neurological exam: Present: alert, oriented X3 Psychiatric exam: Present: normal affect, normal mood Skin exam: Present: warm, dry Course Vital Signs 12/01/23 12/01/23 12/02/23 19:42 22:17 01:08 Temperature 97.7 F Pulse Rate 116 H 75 61 Respiratory 20 18 18 Rate Blood Pressure 134/84 138/88 145/85 O2 Sat by Pulse 99 100 100 Oximetry Medical Decision Making - Medical Decision Making Was pt. sent in by a medical professional or institution ([facility], [employer], urgent care, hospital, or half-way...) When possible be specific @ -No Did you speak to anyone other than the patient for history (EMS, parent, family, police, friend...)? What history was obtained from this source @ -No Did you review nursing and triage notes (agree or disagree)? Why? @ -I reviewed and agree with nursing and triage notes Were old charts reviewed (outside hosp., previous admission, EMS record, old EKG, old radiological studies, urgent care reports/EKG's, half-way records)? Report findings @ -No old charts were reviewed Differential Diagnosis (chest pain, altered mental status, abdominal pain women, abdominal pain men, vaginal bleeding, weakness, fever, dyspnea, syncope, headache, dizziness, GI bleed, back pain, seizure, CVA, palpatations, mental health, musculoskeletal)? @ -MDM Differential Abdominal Pain Women: Appendicitis, Cholecystitis, diverticulosis, ischemic bowel, pancreatitis, hepatitis, UTI, gastroenteritis, AAA, incarcerated hernia, bowel obstruction, constipation, inflammatory bowel, hepatitis, peptic ulcer disease, splenic infarction, perforated viscus, vulvitis, ovarian torsion, PID, kidney stone, placenta abruption... This is not meant to be an all-inclusive list EKG interpreted by me (3pts min.). @ -As above X-rays interpreted by me (1pt min.). @ -None done CT interpreted by me (1pt min.). @ -None done U/S interpreted by me (1pt. min.). @ -Ultrasound shows no acute findings in the abdomen What testing was considered but not performed or refused? (CT, X-rays, U/S, labs)? Why? @ -None What meds were considered but not given or refused? Why? @ -None Did you discuss the management of the patient with other professionals (professionals i.e. , PA, DRY CLIPPER TENDER, lab, RT, psych nurse, web content & social media manager, senior marketing engineer, teacher, logistics supply officer, case management director)? Give summary @ -I spoke with Dr. Bailey who accepted admission Was smoking cessation discussed for >3mins.? @ -No Was critical care preformed (if so, how long)? @ -No Were there social determinants of health that impacted care today? How? (Homelessness, low income, unemployed, alcoholism, drug addiction, transportation, low edu. Level, literacy, decrease access to med. care, correction, rehab)? @ -No Was there de-escalation of care discussed even if they declined (Discuss DNR or withdrawal of care, Hospice)? DNR status @ -No What co-morbidities impacted this encounter? (DM, HTN, Smoking, COPD, CAD, Cancer, CVA, ARF, Chemo, Hep., AIDS, mental health diagnosis, sleep apnea, morbid obesity)? @ -None Was patient admitted / discharged? Hospital course, mention meds given and route, prescriptions, significant lab abnormalities, going to OR and other pertinent info. @ -43-year-old female presenting with chief complaint of abdominal pain nausea vomiting and decreased appetite. History and physical exam are conducted. Lab work shows no leukocytosis or anemia. Lipase 615 amylase 112. Normal anion gap. Urine shows no infectious process. Negative hCG. She is negative for influenza, RSV, COVID, group A strep. Bilirubin is elevated at 2.2 however ultrasound shows no acute process of the abdomen. Patient will be admitted for pancreatitis. She is agreeable with this plan. I discussed this case my attending Dr. Hopson. Undiagnosed new problem with uncertain prognosis? @ -No Drug Therapy requiring intensive monitoring for toxicity (Heparin, Nitro, Insulin, Cardizem)? @ -No Were any procedures done? @ -No Diagnosis/symptom? @ -Pancreatitis Acute, or Chronic, or Acute on Chronic? @ -Acute Uncomplicated (without systemic symptoms) or Complicated (systemic symptoms)? @ -Complicated Side effects of treatment? @ -No Exacerbation, Progression, or Severe Exacerbation? @ -No Poses a threat to life or bodily function? How? (Chest pain, [place], [place], pneumonia, PE, COPD, DKA, ARF, appy, cholecystitis, CVA, Diverticulitis, Homicidal, Suicidal, threat to staff... and all critical care pts) @ -Yes - Lab Data Result diagrams: 12/01/23 20:12/01/23 20: Lab Results 12/01/23 12/01/23 12/01/23 Range/Units 20:01 20: 20:01 WBC 5.8 (3.8-10.6) k/uL RBC 5.06 (3.80-5.40) m/uL Hgb 13.8 D (11.4-16.0) gm/dL Hct 43.6 (34.0-46.0) % MCV 86.1 (80.0-100.0) fL MCH 27.3 (25.0-35.0) pg MCHC 31.7 (31.0-37.0) g/dL RDW 13.8 (11.5-15.5) % Plt Count 339 (150-450) k/uL MPV 7.6 Neutrophils % 48 % Lymphocytes % 37 % Monocytes % 7 % Eosinophils % 4 % Basophils % 1 % Neutrophils # 2.8 (1.3-7.7) k/uL Lymphocytes # 2.1 (1.0-4.8) k/uL Monocytes # 0.4 (0-1.0) k/uL Eosinophils # 0.3 (0-0.7) k/uL Basophils # 0.1 (0-0.2) k/uL Hypochromasia Slight Poikilocytosis Slight Sodium 139 (137-145) mmol/L Potassium 3.7 (3.5-5.1) mmol/L Chloride 108 H (98-107) mmol/L Carbon Dioxide 18 L (22-30) mmol/L Anion Gap 13 mmol/L BUN 15 (7-17) mg/dL Creatinine 0.98 (0.52-1.04) mg/dL Est GFR (CKD-EPI)AfAm 82 (>60 ml/min/1.73 sqM) Est GFR (CKD-EPI)NonAf 71 (>60 ml/min/1.73 sqM) Glucose 107 H (74-99) mg/dL Calcium 9.5 (8.4-10.2) mg/dL Total Bilirubin 2.2 H (0.2-1.3) mg/dL AST 34 (14-36) U/L ALT 21 (4-34) U/L Alkaline Phosphatase 126 (38-126) U/L Total Protein 7.8 (6.3-8.2) g/dL Albumin 4.9 (3.5-5.0) g/dL Amylase 112 H (30-110) U/L Lipase 615 H (23-300) U/L Urine Color Urine Appearance (Clear) Urine pH (5.0-8.0) Ur Specific [place] (1.001-1.035) Urine Protein (Negative) Urine Glucose (UA) (Negative) Urine Ketones (Negative) Urine Blood (Negative) Urine Nitrite (Negative) Urine Bilirubin (Negative) Urine Urobilinogen (<2.0) mg/dL Ur Leukocyte Esterase (Negative) Urine RBC (0-5) /hpf Urine WBC (0-5) /hpf Ur Squamous Epith Cells (0-4) /hpf Urine Bacteria (None) /hpf Urine Mucus (None) /hpf Urine HCG, Qual (Not Detectd) Influenza Type A (PCR) Not Detected (Not Detectd) Influenza Type B (PCR) Not Detected (Not Detectd) RSV (PCR) Not Detected (Not Detectd) SARS-CoV-2 (PCR) Not Detected (Not Detectd) Group A Strep (PCR) (Not Detectd) 12/01/23 12/01/23 12/01/23 Range/Units 20:30 21:13 21:13 WBC (3.8-10.6) k/uL RBC (3.80-5.40) m/uL Hgb (11.4-16.0) gm/dL Hct (34.0-46.0) % MCV (80.0-100.0) fL MCH (25.0-35.0) pg MCHC (31.0-37.0) g/dL RDW (11.5-15.5) % Plt Count (150-450) k/uL MPV Neutrophils % % Lymphocytes % % Monocytes % % Eosinophils % % Basophils % % Neutrophils # (1.3-7.7) k/uL Lymphocytes # (1.0-4.8) k/uL Monocytes # (0-1.0) k/uL Eosinophils # (0-0.7) k/uL Basophils # (0-0.2) k/uL Hypochromasia Poikilocytosis Sodium (137-145) mmol/L Potassium (3.5-5.1) mmol/L Chloride (98-107) mmol/L Carbon Dioxide (22-30) mmol/L Anion Gap mmol/L BUN (7-17) mg/dL Creatinine (0.52-1.04) mg/dL Est GFR (CKD-EPI)AfAm (>60 ml/min/1.73 sqM) Est GFR (CKD-EPI)NonAf (>60 ml/min/1.73 sqM) Glucose (74-99) mg/dL Calcium (8.4-10.2) mg/dL Total Bilirubin (0.2-1.3) mg/dL AST (14-36) U/L ALT (4-34) U/L Alkaline Phosphatase (38-126) U/L Total Protein (6.3-8.2) g/dL Albumin (3.5-5.0) g/dL Amylase (30-110) U/L Lipase (23-300) U/L Urine Color Yellow Urine Appearance Cloudy H (Clear) Urine pH 5.5 (5.0-8.0) Ur Specific [place] 1.028 (1.001-1.035) Urine Protein Trace H (Negative) Urine Glucose (UA) Negative (Negative) Urine Ketones Trace H (Negative) Urine Blood Negative (Negative) Urine Nitrite Negative (Negative) Urine Bilirubin Negative (Negative) Urine Urobilinogen 3.0 (<2.0) mg/dL Ur Leukocyte Esterase Trace H (Negative) Urine RBC 1 (0-5) /hpf Urine WBC 6 H (0-5) /hpf Ur Squamous Epith Cells 4 (0-4) /hpf Urine Bacteria Rare H (None) /hpf Urine Mucus Many H (None) /hpf Urine HCG, Qual Not Detected (Not Detectd) Influenza Type A (PCR) (Not Detectd) Influenza Type B (PCR) (Not Detectd) RSV (PCR) (Not Detectd) SARS-CoV-2 (PCR) (Not Detectd) Group A Strep (PCR) NOT DETECTED (Not Detectd) Disposition Clinical Impression: Pancreatitis Disposition: ADMITTED IP TO THIS HOSP Condition: Fair Referrals: Santosh Mccord DO [Primary Care Provider] - 1-2 days Time of Disposition: 00:49
[2023-12-01 21:28] LABS: Appearance,Urine Cloudy (Clear); Bacteria,Urine Rare /hpf; Bilirubin,Urine Negative (Negative); Blood,Urine Negative (Negative); Color,Urine Yellow; Glucose,Urine (UA) Negative (Negative); Ketones,Urine Trace (Negative); Leukocyte Esterase,Urine Trace (Negative); Mucus,Urine Many /hpf; Nitrite,Urine Negative (Negative); PH, Urine 5.5 (5.0-8.0); Protein,Urine Trace (Negative); RBC,Urine 1 /hpf (0-5); Specific Gravity,Urine 1.028 (1.001-1.035); Squamous Epithelial Cell,Urine 4 /hpf (0-4); WBC,Urine 6 /hpf (0-5)
[2023-12-01] MEDS: MORPHINE SULFATE 4 MG/ML SYRINGE IVP STA (22:15)
--- NOTE | 2023-12-02 00:15 | US ---
EXAM: US Abdomen Complete CLINICAL HISTORY: US Reason: epigastric pain, elevated lipase and bili TECHNIQUE: Real-time ultrasound of the abdomen with image documentation. COMPARISON: August 05, 2023 FINDINGS: Liver: The liver measures 15.1 cm. No intrahepatic bile duct dilation. Gallbladder: The gallbladder is normally distended with no visible stones, wall thickening, or surrounding fluid. Common bile duct: The common bile duct is nondilated measuring 4 mm. The common bile duct is nondilated measuring 5 mm. Pancreas: The visualized portion of the pancreas is unremarkable. The pancreas is partially obscured. Kidneys: The right kidney measures 10.6 cm. No stones. No hydronephrosis. Spleen: Not visualized. Aorta: Obscured. Inferior vena cava: Obscured. IMPRESSION: No acute findings in the abdomen.
[2023-12-02] MEDS ORDERED: NALOXONE 0.4 MG/ML 1 ML VIAL IV PRN (00:45)
[2023-12-02] MEDS: SODIUM CHLORIDE 0.9% 1,000 ML IV SCH (01:04)
[2023-12-02] MEDS: FAMOTIDINE 20 MG/2 ML VIAL IV STA (01:04)
[2023-12-02] MEDS: SODIUM CHLORIDE 0.9% 1,000 ML IV ONE (01:04)
[2023-12-02] MEDS: HYDROmorphone 1 MG/ML 1 ML SYRINGE IVP PRN (01:13)
[2023-12-02] MEDS: ONDANSETRON 4 MG/2 ML VIAL IVP PRN (03:21)
[2023-12-02 06:12] LABS: ALT 15 U/L (4-34); AST 24 U/L (14-36); African American GFR (CKD) >90 (>60 ml/min/1.73 sqM); Albumin/Globulin Ratio 1.3; Alkaline Phosphatase 83 U/L (38-126); Amylase 73 U/L (30-110); Anion Gap 4 mmol/L; Blood Urea Nitrogen 12 mg/dL (7-17); Calcium 8.2 mg/dL (8.4-10.2); Carbon Dioxide 21 mmol/L (22-30); Chloride 114 mmol/L (98-107); Globulin 2.3 g/dL; Glucose 83 mg/dL (74-99); Lipase 451 U/L (23-300); Non-African American GFR(CKD) >90 (>60 ml/min/1.73 sqM); Potassium 3.8 mmol/L (3.5-5.1); Sodium 139 mmol/L (137-145); Total Bilirubin 1.7 mg/dL (0.2-1.3); Total Protein 5.3 g/dL (6.3-8.2)
[2023-12-02] MEDS: FAMOTIDINE 20 MG/2 ML VIAL IV SCH (14:17)
[2023-12-03 09:23] LABS: ALT 15 U/L (8-44); AST 27 U/L (13-35); Albumin 3.8 g/dL (3.8-4.9); Albumin/Globulin Ratio 2.11 Ratio (1.60-3.17); Alkaline Phosphatase 97 U/L (41-126); Amylase 78 U/L (23-121); BUN/Creat Ratio 9.86 Ratio (12.00-20.00); Blood Urea Nitrogen 6.9 mg/dL (9.0-27.0); Calcium 8.8 mg/dL (8.7-10.3); Carbon Dioxide 18.3 mmol/L (21.6-31.8); Chloride 108 mmol/L (96-109); Globulin 1.8 g/dL (1.6-3.3); Glucose 77 mg/dL (70-110); Lipase 120 U/L (14-63); Potassium 4.2 mmol/L (3.5-5.5); Sodium 137 mmol/L (135-145); Total Bilirubin 1.7 mg/dL (0.3-1.2); Total Protein 5.6 g/dL (6.2-8.2)
[2023-12-04] MEDS: LOPERAMIDE 2 MG CAP PO PRN (14:04)
--- NOTE | 2023-12-04 14:32 | P.HPIM ---
History of Present Illness H&P Date: 12/02/23 Chief Complaint: Nausea/vomiting/abdominal pain 43-year-old female, history of asthma, hyperlipidemia, fibromyalgia, rheumatoid arthritis presenting with chief complaint of nausea and vomiting. Patient has had nausea and vomiting as well as generalized abdominal pain ongoing for the last 3 to 4 days. States that she is unable to eat. She admits to diarrhea. She also admits to low-grade fever. She has been feeling fatigued and generally weak. She had a recent hip replacement and did have some complications regarding healing, however she seems to be improving in this regard and is having no change in pain or swelling to the area. Blood work completed reveals a WBC of 5.8, hemoglobin of 13.8 and platelet count of 339, sodium 139, potassium 3.7, BUNs/creatinine 15/0.98, AST and ALT within normal limits, total bilirubin of 2.2, lipase of 615 Ultrasound of the abdomen completed did not reveal any acute findings in the abdomen Review of Systems REVIEW OF SYSTEMS: CONSTITUTIONAL: No fever, no malaise, no fatigue. HEENT: No recent visual problems or hearing problems. Denied any sore throat. CARDIOVASCULAR: No chest pain, orthopnea, PND, no palpitations, no syncope. PULMONARY: No shortness of breath, no cough, no hemoptysis. GASTROINTESTINAL: No diarrhea, no nausea, no vomiting, no abdominal pain. NEUROLOGICAL: No headaches, no weakness, no numbness. HEMATOLOGICAL: Denies any bleeding or petechiae. GENITOURINARY: Denies any burning micturition, frequency, or urgency. MUSCULOSKELETAL/RHEUMATOLOGICAL: Denies any joint pain, swelling, or any muscle pain. ENDOCRINE: Denies any polyuria or polydipsia. The rest of the 14-point review of systems is negative. Past Medical History Past Medical History: Asthma, Chest Pain / Angina, Fibromyalgia, GERD/Reflux, Hyperlipidemia, Liver Disease, Neurologic Disorder, Rheumatoid Arthritis (RA) Additional Past Medical History / Comment(s): PSORIATIC ARTHRITIS. POTS. Chiari malformation with [employer] shunt. Migraines. IBS. Lupus. OCCASIONAL DIZZINESS, IRREGULAR HEART RATE. HX POLYNEPHRITIS. Non-alcoholic fatty liver. History of Any Multi-Drug Resistant Organisms: None Reported Past Surgical History: Bladder Surgery, Hysterectomy, Joint Replacement, Orthopedic Surgery, Tonsillectomy, Tubal Ligation Additional Past Surgical History / Comment(s): Chiari decompression, shunt to brain, brain surgery X5, bladder suspension, bladder lift partial hysterectomy, uterus lift, bilateral carpal tunnel. Past Anesthesia/Blood Transfusion Reactions: No Reported Reaction Past Psychological History: ADD/ADHD, Anxiety, Depression Smoking Status: Never smoker Past Alcohol Use History: None Reported Past Drug Use History: None Reported - Past Family History Mother Family Medical History: No Reported History Father Family Medical History: Unable to Obtain Medications and Allergies Home Medications Medication Instructions Recorded Confirmed Type Montelukast Sodium [Singulair] 10 mg PO HS 08/13/18 12/02/23 History Dicyclomine [Bentyl] 10 mg PO QID PRN 02/17/21 12/02/23 History Famotidine [Pepcid] 20 mg PO BID 02/17/21 12/02/23 History Rimegepant Sulfate [Nurtec Odt] 75 mg PO DAILY PRN 02/17/21 12/02/23 History Erenumab-Aooe [Aimovig 140 mg SQ Q30D 08/04/21 12/02/23 History Autoinjector] Metoprolol Tartrate [Lopressor] 25 mg PO HS 10/21/22 12/02/23 History clonazePAM 2 mg PO HS 10/21/22 12/02/23 History medroxyPROGESTERone [Depo-Provera] 150 mg IM Q90D 10/21/22 12/02/23 History Aspirin EC [Ecotrin Low Dose] 81 mg PO DAILY 11/22/22 12/02/23 History Nitroglycerin Sl Tabs [Nitrostat] 0.4 mg SUBLINGUAL Q5M PRN 11/22/22 12/02/23 History Oxybutynin ER [Ditropan XL] 15 mg PO HS 11/22/22 12/02/23 History diphenhydrAMINE HCL [Benadryl] 25 mg PO HS 11/22/22 12/02/23 History Cholecalciferol [Vitamin D3 (25 25 mcg PO DAILY 01/25/23 12/02/23 History Mcg = 1000 Iu)] Atorvastatin [Lipitor] 40 mg PO DAILY 08/05/23 12/02/23 History Lisdexamfetamine Dimesylate 60 mg PO DAILY 08/05/23 12/02/23 History [Vyvanse] Nystatin 100,000 Unit/ml Susp 4 ml PO QID PRN 08/05/23 12/02/23 History [Mycostatin Oral Susp] Pantoprazole [Protonix] 40 mg PO QID 08/05/23 12/02/23 History Zolpidem Tartrate [Ambien] 5 mg PO HS 08/05/23 12/02/23 History Albuterol Inhaler [Ventolin Hfa 1 - 2 puff INHALATION RT-Q6H PRN 10/27/23 12/02/23 History Inhaler] Cetirizine HCl [Zyrtec] 10 mg PO HS 10/27/23 12/02/23 History Escitalopram [Lexapro] 10 mg PO HS 10/27/23 12/02/23 History Secukinumab [Cosentyx Sensoready 300 mg SQ Q30D 10/27/23 12/02/23 History (2 Pens)] tiZANidine [Zanaflex] 4 mg PO TID PRN 10/27/23 12/02/23 History Clindamycin Gel [Cleocin T 1% Gel] 1 applic TOPICAL BID #1 each 11/07/23 12/02/23 Rx Clobetasol Propionate [Temovate 1 applic TOPICAL HS #1 each 11/07/23 12/02/23 Rx 0.05% Cream] Hydrocortisone Cream 1 applic TOPICAL HS #1 each 11/07/23 12/02/23 Rx [Hydrocortisone 2.5% Cream] Magnesium Hydroxide [Milk of 2,400 mg PO DAILY PRN #30 each 11/07/23 12/02/23 Rx Magnesia] metroNIDAZOLE 0.75% CREAM 1 applic TOPICAL DAILY #1 each 11/07/23 12/02/23 Rx [Metrocream 0.75%] Albuterol Nebulized [Ventolin 2.5 mg INHALATION RT-Q6H PRN 11/11/23 12/02/23 History Nebulized] Sennosides-Docusate Sodium 2 tab PO HS 11/11/23 12/02/23 History [Senokot-S] oxyCODONE HCL [Oxycodone HCl] 15 mg PO Q4H 12/02/23 12/02/23 History Allergies Allergy/AdvReac Type Severity Reaction Status Date / Time ibuprofen [From Motrin] AdvReac Kidney Verified 12/01/23 19:44 Failure metoclopramide HCl AdvReac Hallucinati Verified 12/01/23 19:44 [From Reglan] ons NSAIDS (Non-Steroidal AdvReac Kidney Verified 12/01/23 19:44 Anti-Inflamma Failure pregabalin [From Lyrica] AdvReac Cough Verified 12/01/23 19:44 prochlorperazine AdvReac Hallucinati Verified 12/01/23 19:44 [From Compazine] ons Physical Exam Vitals: Vital Signs Temp Pulse Resp BP Pulse Ox 12/02/23 12:20 65 16 132/72 98 12/02/23 10:05 98.8 F 79 18 132/72 100 12/02/23 09:00 62 14 123/73 99 12/02/23 08:07 98.6 F 61 20 120/77 98 12/02/23 06:19 63 16 147/87 98 12/02/23 05:00 67 16 104/68 99 12/02/23 01:08 61 18 145/85 100 12/01/23 22:17 75 18 138/88 100 12/01/23 19:42 97.7 F 116 H 20 134/84 99 Intake and Output 12/01/23 12/02/23 12/02/23 22:59 06:59 14:59 Other: Weight 83.007 kg General appearance: alert, in no apparent distress Head exam: Present: atraumatic, normocephalic Eye exam: Present: normal appearance, EOMI Neck exam: Present: normal inspection. Absent: meningismus Respiratory exam: Present: normal lung sounds bilaterally. Absent: respiratory distress, wheezes, rales, rhonchi, stridor Cardiovascular Exam: Present: regular rate, normal rhythm, normal heart sounds. Absent: systolic murmur, diastolic murmur, rubs, gallop, clicks GI/Abdominal exam: Present: soft, tenderness (Generally uncomfortable on palpation). Absent: distended, guarding, rebound, rigid Neurological exam: Present: alert, oriented X3 Psychiatric exam: Present: normal affect, normal mood Skin exam: Present: warm, dry Results CBC & Chem 7: 12/01/23 20:01 12/03/23 04:22 Labs: Abnormal Lab Results - Last 24 Hours (Table) 12/01/23 12/01/23 12/02/23 Range/Units 20:01 21:13 05:45 Chloride 108 H 114 H (98-107) mmol/L Carbon Dioxide 18 L 21 L (22-30) mmol/L Glucose 107 H (74-99) mg/dL Calcium 8.2 L (8.4-10.2) mg/dL Total Bilirubin 2.2 H 1.7 H (0.2-1.3) mg/dL Total Protein 5.3 L (6.3-8.2) g/dL Albumin 3.0 L (3.5-5.0) g/dL Amylase 112 H (30-110) U/L Lipase 615 H 451 H (23-300) U/L Urine Appearance Cloudy H (Clear) Urine Protein Trace H (Negative) Urine Ketones Trace H (Negative) Ur Leukocyte Esterase Trace H (Negative) Urine WBC 6 H (0-5) /hpf Urine Bacteria Rare H (None) /hpf Urine Mucus Many H (None) /hpf Assessment and Plan Assessment: 1. Acute pancreatitis -Patient has been made n.p.o.; has been placed on Protonix 40 mg IV daily; IV fluids in form of normal saline at rate of 125 cc an hour -Morphine IV for pain control; IV Zofran for nausea and vomiting 2. Intractable nausea and vomiting/diarrhea; likely related to acute pancreatitis; abdominal ultrasound has been unremarkable; will continue with supportive care 3. Hyperbilirubinemia; etiology unclear; abdominal ultrasound is unremarkable; patient follows up with GI as an outpatient 4. Hypertension; metoprolol 25 mg daily 5. COPD/asthma; not in exacerbation; continue with home inhaler therapy; will resume home dose of Singulair once clinically stable 6. Hyperlipidemia; patient takes Lipitor 40 mg daily which will be placed on hold given acute pancreatitis and elevated bilirubin 7. Depression; Lexapro 10 mg daily 8. Rheumatoid arthritis; continue with outpatient follow-up DVT prophylaxis; SCDs Code status; full code
--- NOTE | 2023-12-04 14:33 | P.PN ---
Subjective Progress Note Date: 12/03/23 43-year-old female, history of asthma, hyperlipidemia, fibromyalgia, rheumatoid arthritis presenting with chief complaint of nausea and vomiting. Patient has had nausea and vomiting as well as generalized abdominal pain ongoing for the last 3 to 4 days. States that she is unable to eat. She admits to diarrhea. She also admits to low-grade fever. She has been feeling fatigued and generally weak. She had a recent hip replacement and did have some complications regarding healing, however she seems to be improving in this regard and is having no change in pain or swelling to the area. Blood work completed reveals a WBC of 5.8, hemoglobin of 13.8 and platelet count of 339, sodium 139, potassium 3.7, BUNs/creatinine 15/0.98, AST and ALT within normal limits, total bilirubin of 2.2, lipase of 615 Ultrasound of the abdomen completed did not reveal any acute findings in the abdomen Objective - Vital Signs Vital signs: Vital Signs Temp 98 F 12/03/23 07:00 Pulse 60 12/03/23 07:00 Resp 16 12/03/23 07:55 BP 123/73 12/03/23 07:00 Pulse Ox 99 12/03/23 07:00 FiO2 Intake & Output 12/02/23 12/03/23 12/03/23 18:59 06:59 18:59 Weight 83.007 kg Other: Voiding Method Toilet Toilet # Voids 2 - Exam General appearance: alert, in no apparent distress Head exam: Present: atraumatic, normocephalic Eye exam: Present: normal appearance, EOMI Neck exam: Present: normal inspection. Absent: meningismus Respiratory exam: Present: normal lung sounds bilaterally. Absent: respiratory distress, wheezes, rales, rhonchi, stridor Cardiovascular Exam: Present: regular rate, normal rhythm, normal heart sounds. Absent: systolic murmur, diastolic murmur, rubs, gallop, clicks GI/Abdominal exam: Present: soft, tenderness (Generally uncomfortable on pal pation). Absent: distended, guarding, rebound, rigid Neurological exam: Present: alert, oriented X3 Psychiatric exam: Present: normal affect, normal mood Skin exam: Present: warm, dry - Labs CBC & Chem 7: 12/01/23 20:01 12/03/23 04:22 Labs: Abnormal Lab Results - Last 24 Hours (Table) 12/03/23 Range/Units 04:22 Carbon Dioxide 18.3 L (21.6-31.8) mmol/L BUN 6.9 L (9.0-27.0) mg/dL BUN/Creatinine Ratio 9.86 L (12.00-20.00) Ratio Total Bilirubin 1.7 H (0.3-1.2) mg/dL Total Protein 5.6 L (6.2-8.2) g/dL Lipase 120 H (14-63) U/L Assessment and Plan Assessment: 1. Acute pancreatitis -Patient has been made n.p.o.; has been placed on Protonix 40 mg IV daily; IV fluids in form of normal saline at rate of 125 cc an hour -Morphine IV for pain control; IV Zofran for nausea and vomiting 2. Intractable nausea and vomiting/diarrhea; likely related to acute pancreatitis; abdominal ultrasound has been unremarkable; will continue with supportive care 3. Hyperbilirubinemia; etiology unclear; abdominal ultrasound is unremarkable; patient follows up with GI as an outpatient 4. Hypertension; metoprolol 25 mg daily 5. COPD/asthma; not in exacerbation; continue with home inhaler therapy; will resume home dose of Singulair once clinically stable 6. Hyperlipidemia; patient takes Lipitor 40 mg daily which will be placed on hold given acute pancreatitis and elevated bilirubin 7. Depression; Lexapro 10 mg daily 8. Rheumatoid arthritis; continue with outpatient follow-up DVT prophylaxis; SCDs Code status; full code
--- NOTE | 2023-12-04 14:44 | P.PN ---
Subjective Progress Note Date: 12/04/23 43-year-old female, history of asthma, hyperlipidemia, fibromyalgia, rheumatoid arthritis presenting with chief complaint of nausea and vomiting. Patient has had nausea and vomiting as well as generalized abdominal pain ongoing for the last 3 to 4 days. States that she is unable to eat. She admits to diarrhea. She also admits to low-grade fever. She has been feeling fatigued and generally weak. She had a recent hip replacement and did have some complications regarding healing, however she seems to be improving in this regard and is having no change in pain or swelling to the area. Blood work completed reveals a WBC of 5.8, hemoglobin of 13.8 and platelet count of 339, sodium 139, potassium 3.7, BUNs/creatinine 15/0.98, AST and ALT within normal limits, total bilirubin of 2.2, lipase of 615 Ultrasound of the abdomen completed did not reveal any acute findings in the abdomen 12/04/2023 Patient is seen and evaluated in room at bedside; nursing staff present in the room; patient reports multiple episodes of diarrhea and nausea; reports he follows up with GI for irritable bowel disease; requesting home dose of Imodium and Bentyl be resumed --Patient continues to report nausea; discussed continues to report abdominal painwith oral intake; concerned about acute withdrawal with cutting back on IV narcotics; patient to be transition to oral home therapy Blood work remains stable with sodium 137, potassium 4.2, BUNs/creatinine of 6.9/0.7, bilirubin down to 1.7 from 2.2 upon admission, AST ALT remain within normal limits --We will continue to advance diet; repeat lipase in the morning with recommendations for discharge if remains stable Objective - Vital Signs Vital signs: Vital Signs Temp 97.6 F 12/04/23 07:00 Pulse 57 L 12/04/23 07:00 Resp 16 12/04/23 07:57 BP 170/94 12/04/23 07:00 Pulse Ox 100 12/04/23 07:00 FiO2 Intake & Output 12/03/23 12/04/23 12/04/23 18:59 06:59 18:59 Other: Voiding Method Toilet Toilet Toilet # Voids 11 3 # Bowel Movements 3 - Exam General appearance: alert, in no apparent distress Head exam: Present: atraumatic, normocephalic Eye exam: Present: normal appearance, EOMI Neck exam: Present: normal inspection. Absent: meningismus Respiratory exam: Present: normal lung sounds bilaterally. Absent: respiratory distress, wheezes, rales, rhonchi, stridor Cardiovascular Exam: Present: regular rate, normal rhythm, normal heart sounds. Absent: systolic murmur, diastolic murmur, rubs, gallop, clicks GI/Abdominal exam: Present: soft, tenderness (Generally uncomfortable on palpation). Absent: distended, guarding, rebound, rigid Neurological exam: Present: alert, oriented X3 Psychiatric exam: Present: normal affect, normal mood Skin exam: Present: warm, dry - Labs CBC & Chem 7: 12/01/23 20:01 12/03/23 04:22 Assessment and Plan Assessment: 1. Acute pancreatitis -Patient has been made n.p.o.; has been placed on Protonix 40 mg IV daily; IV fluids in form of normal saline at rate of 125 cc an hour -Morphine IV for pain control; IV Zofran for nausea and vomiting 2. Intractable nausea and vomiting/diarrhea; likely related to acute pancreatitis; abdominal ultrasound has been unremarkable; will continue with supportive care 3. Hyperbilirubinemia; etiology unclear; abdominal ultrasound is unremarkable; patient follows up with GI as an outpatient 4. Hypertension; metoprolol 25 mg daily 5. COPD/asthma; not in exacerbation; continue with home inhaler therapy; will r esume home dose of Singulair once clinically stable 6. Hyperlipidemia; patient takes Lipitor 40 mg daily which will be placed on hold given acute pancreatitis and elevated bilirubin 7. Depression; Lexapro 10 mg daily 8. Rheumatoid arthritis; continue with outpatient follow-up DVT prophylaxis; SCDs Code status; full code
[2023-12-04] MEDS ORDERED: NON FORMULARY DRUG (Rimegepant Sulfate [Nurtec Odt] 75 MG Tab.Rapdis) PO PRN (15:09)
[2023-12-04] MEDS: DICYCLOMINE 10 MG CAP PO PRN (16:56)
[2023-12-04] MEDS: OXYBUTYNIN 15 MG TAB.ER.24 PO SCH (19:39)
[2023-12-04] MEDS: MONTELUKAST 10 MG TAB PO SCH (19:40)
[2023-12-04] MEDS: METOPROLOL TARTRATE 25 MG TAB PO SCH (19:40)
[2023-12-04] MEDS: diphenhydrAMINE 25 MG CAP PO SCH (19:40)
[2023-12-04] MEDS: clonazePAM 1 MG TAB PO SCH (19:40)
[2023-12-04] MEDS: ESCITALOPRAM 10 MG TAB PO SCH (19:41)
[2023-12-04] MEDS: SENNOSIDES-DOCUSATE SODIUM 1 EACH TAB PO SCH (19:44)
[2023-12-05] MEDS: ASPIRIN 81 MG PO SCH (09:04)
[2023-12-05] MEDS: NON FORMULARY DRUG (Lisdexamfetamine Dimesylate [Vyvanse] 60 MG Capsule) PO SCH (09:09)
--- NOTE | 2023-12-05 11:11 | P.CNOR ---
History of Present Illness - [facility] Consult date: 12/05/23 Consult reason: other (Postop total left hip arthroplasty. Slight wound dehiscence.) History of present illness: This is a 43-year-old female who is status post total left hip arthroplasty with direct anterior approach on 11/01/2023. She is admitted to the hospital on 12/01/2023 with acute pancreatitis. She had been vomiting for several days prior to her admission. She states that she was running a low-grade fever at home prior to admission. She states that she has had slight opening of the proximal incision for the past couple of weeks. She has been keeping a clean dressing on the area and has been rinsing the area in the shower. She has not been putting any ointments or salves on the incision. She reports some recent redness around the incisional area. We are consulted for orthopedic follow-up and evaluation of the left hip. White blood cell count on admission is 5.8. Past Medical History Past Medical History: Asthma, Chest Pain / Angina, Fibromyalgia, GERD/Reflux, Hyperlipidemia, Liver Disease, Neurologic Disorder, Rheumatoid Arthritis (RA) Additional Past Medical History / Comment(s): PSORIATIC ARTHRITIS. POTS. Chiari malformation with SLIP MAKER shunt. Migraines. IBS. Lupus. OCCASIONAL DIZZINESS, IRREGULAR HEART RATE. HX POLYNEPHRITIS. Non-alcoholic fatty liver. History of Any Multi-Drug Resistant Organisms: None Reported Past Surgical History: Bladder Surgery, Hysterectomy, Joint Replacement, Orthopedic Surgery, Tonsillectomy, Tubal Ligation Additional Past Surgical History / Comment(s): Chiari decompression, shunt to brain, brain surgery X5, bladder suspension, bladder lift partial hysterectomy, uterus lift, bilateral carpal tunnel. Past Anesthesia/Blood Transfusion Reactions: No Reported Reaction Past Psychological History: ADD/ADHD, Anxiety, Depression Smoking Status: Never smoker Past Alcohol Use History: None Reported Past Drug Use History: None Reported - Past Family History Mother Family Medical History: No Reported History Father Family Medical History: Unable to Obtain Medications and Allergies Home Medications Medication Instructions Recorded Confirmed Type Montelukast Sodium [Singulair] 10 mg PO HS 08/13/18 12/02/23 History Dicyclomine [Bentyl] 10 mg PO QID PRN 02/17/21 12/02/23 History Famotidine [Pepcid] 20 mg PO BID 02/17/21 12/02/23 History Rimegepant Sulfate [Nurtec Odt] 75 mg PO DAILY PRN 02/17/21 12/02/23 History Erenumab-Aooe [Aimovig 140 mg SQ Q30D 08/04/21 12/02/23 History Autoinjector] Metoprolol Tartrate [Lopressor] 25 mg PO HS 10/21/22 12/02/23 History clonazePAM 2 mg PO HS 10/21/22 12/02/23 History medroxyPROGESTERone [Depo-Provera] 150 mg IM Q90D 10/21/22 12/02/23 History Aspirin EC [Ecotrin Low Dose] 81 mg PO DAILY 11/22/22 12/02/23 History Nitroglycerin Sl Tabs [Nitrostat] 0.4 mg SUBLINGUAL Q5M PRN 11/22/22 12/02/23 History Oxybutynin ER [Ditropan XL] 15 mg PO HS 11/22/22 12/02/23 History diphenhydrAMINE HCL [Benadryl] 25 mg PO HS 11/22/22 12/02/23 History Cholecalciferol [Vitamin D3 (25 25 mcg PO DAILY 01/25/23 12/02/23 History Mcg = 1000 Iu)] Atorvastatin [Lipitor] 40 mg PO DAILY 08/05/23 12/02/23 History Lisdexamfetamine Dimesylate 60 mg PO DAILY 08/05/23 12/02/23 History [Vyvanse] Nystatin 100,000 Unit/ml Susp 4 ml PO QID PRN 08/05/23 12/02/23 History [Mycostatin Oral Susp] Pantoprazole [Protonix] 40 mg PO QID 08/05/23 12/02/23 History Zolpidem Tartrate [Ambien] 5 mg PO HS 08/05/23 12/02/23 History Albuterol Inhaler [Ventolin Hfa 1 - 2 puff INHALATION RT-Q6H PRN 10/27/23 12/02/23 History Inhaler] Cetirizine HCl [Zyrtec] 10 mg PO HS 10/27/23 12/02/23 History Escitalopram [Lexapro] 10 mg PO HS 10/27/23 12/02/23 History Secukinumab [Cosentyx Sensoready 300 mg SQ Q30D 10/27/23 12/02/23 History (2 Pens)] tiZANidine [Zanaflex] 4 mg PO TID PRN 10/27/23 12/02/23 History Clindamycin Gel [Cleocin T 1% Gel] 1 applic TOPICAL BID #1 each 11/07/23 12/02/23 Rx Clobetasol Propionate [Temovate 1 applic TOPICAL HS #1 each 11/07/23 12/02/23 Rx 0.05% Cream] Hydrocortisone Cream 1 applic TOPICAL HS #1 each 11/07/23 12/02/23 Rx [Hydrocortisone 2.5% Cream] Magnesium Hydroxide [Milk of 2,400 mg PO DAILY PRN #30 each 11/07/23 12/02/23 Rx Magnesia] metroNIDAZOLE 0.75% CREAM 1 applic TOPICAL DAILY #1 each 11/07/23 12/02/23 Rx [Metrocream 0.75%] Albuterol Nebulized [Ventolin 2.5 mg INHALATION RT-Q6H PRN 11/11/23 12/02/23 History Nebulized] Sennosides-Docusate Sodium 2 tab PO HS 11/11/23 12/02/23 History [Senokot-S] oxyCODONE HCL [Oxycodone HCl] 15 mg PO Q4H 12/02/23 12/02/23 History Allergies Allergy/AdvReac Type Severity Reaction Status Date / Time ibuprofen [From Motrin] AdvReac Kidney Verified 12/01/23 19:44 Failure metoclopramide HCl AdvReac Hallucinati Verified 12/01/23 19:44 [From Reglan] ons NSAIDS (Non-Steroidal AdvReac Kidney Verified 12/01/23 19:44 Anti-Inflamma Failure pregabalin [From Lyrica] AdvReac Cough Verified 12/01/23 19:44 prochlorperazine AdvReac Hallucinati Verified 12/01/23 19:44 [From Compazine] ons Physical Examination This is a pleasant 43-year-old female in no acute distress. She is alert and oriented x 3. Exam of the left hip reveals that her incision has a slight opening to the proximal 1 cm of the incision. There is no erythema. Mild anterior soft tissue swelling. There is a light green discharge on the dressing. There is no active drainage at this time. She is able to actively raise the leg independently. She has full foot and ankle motion without difficulty or pain. Neurovascular status to the lower extremity is intact. Patient is ambulating independently about the room. Results - Labs Labs: Abnormal Lab Results - Last 24 Hours (Table) 12/05/23 Range/Units 06:39 Lipase 154 H (14-63) U/L H & H 12/01/23 Range/Units 20:01 Hgb 13.8 D (11.4-16.0) gm/dL Hct 43.6 (34.0-46.0) % Result Diagrams: 12/01/23 20:01 12/03/23 04:22 Assessment and Plan (1) Superficial disruption or dehiscence of operation wound Current Visit: Yes Status: Acute Code(s): T81.31XA - DISRUPTION OF EXTERNAL OPERATION (SURGICAL) WOUND, NEC, INIT SNOMED Code(s): 58180762 (2) Pancreatitis Current Visit: Yes Status: Acute Code(s): K85.90 - ACUTE PANCREATITIS WITHOUT NECROSIS OR INFECTION, UNSP SNOMED Code(s): 58744404 (3) S/P total hip arthroplasty Current Visit: No Status: Acute Code(s): Z96.649 - PRESENCE OF UNSPECIFIED ARTIFICIAL HIP JOINT SNOMED Code(s): 722266426637 Plan: The clinical findings are discussed with the patient. There is no evidence of gross infection. We will place her on an antibiotic for the next 10 days and she is instructed on general wound care. She is to keep a clean dry dressing over the open area. She is to follow-up with Dr. Wheeler on Tuesday. She is to call sooner if there are any problems or questions regarding her care.
[2023-12-05] MEDS: CEPHALEXIN 500 MG CAP PO SCH (12:04)
[2023-12-05] MEDS ORDERED: ZINC OXIDE PASTE (Z-GUARD) 1 APPLIC TOPICAL PRN (19:33)
--- NOTE | 2023-12-06 02:25 | PN ---
PROGRESS NOTE DATE OF SERVICE: 12/05/2023 SUBJECTIVE: This is a 43-year-old woman who was admitted with acute pancreatitis and nausea, vomiting, is improving significantly. No chest pain, no palpitations, no fever. OBJECTIVE: VITAL SIGNS: Pulse is 52, blood pressure 175/82, respirations 18. CHEST: Clear to auscultation. CARDIOVASCULAR: S1, S2. ABDOMEN: Soft, mild diffuse tenderness. LABS: Lipase improved to 154, rest of the labs are noted. ASSESSMENT: 1. Acute pancreatitis, improving. 2. Intractable nausea, vomiting, diarrhea. 3. Hyperbilirubinemia. 4. Hypertension. 5. COPD. 6. Asthma. 7. Multiple medical issues. RECOMMENDATIONS: Recommended to continue current management, continue symptomatic treatment, repeat labs. Otherwise I would recommend close followup with GI as an outpatient. Followup with Primary. Repeat labs will be ordered. Guarded prognosis. Further recommendations to follow. See orders for details. MMODL / IJN: [id number] /
[2023-12-06 04:28] VITALS: PULSE 68; TEMP 98.2
[2023-12-06 08:47] VITALS: BP 114/78; RESP 16
[2023-12-06 10:44] LABS: Basophils # (A) 0.05 X 10*3/uL (0.00-0.10); Basophils % (A) 0.9 %; Eosinophils # (A) 0.36 X 10*3/uL (0.04-0.35); Eosinophils % (A) 6.4 %; HCT 39.8 % (37.2-46.3); HGB 12.7 g/dL (12.0-15.0); Lymphocytes # (A) 2.97 X 10*3/uL (0.90-5.00); Lymphocytes % (A) 52.7 %; MCHC 31.9 g/dL (32.0-37.0); MCV 84.7 FL (80.0-97.0); Mean Platelet Volume 10.8 FL (9.5-12.2); Monocytes # (A) 0.39 X 10*3/uL (0.20-1.00); Monocytes % (A) 6.9 %; NRBC Per 100 WBC 0 X 10*3/uL (0.00-0.01); Neutrophils # (A) 1.86 X 10*3/uL (1.80-7.70); Neutrophils % (A) 32.9 %; Platelet Count 357 X 10*3/uL (140-440); RDW 13.2 % (11.5-14.5); WBC 5.64 X 10*3/uL (4.50-10.00)
[2023-12-06 11:28] LABS: Amylase 80 U/L (23-121); Chol/HDL Ratio 3.47 Ratio; LDL Cholesterol,Calculated 63.4 mg/dL (0.0-131.0); Lipase 79 U/L (14-63)
[2023-12-06 12:08] LABS: ALT 17 U/L (8-44); AST 24 U/L (13-35); Albumin 4.4 g/dL (3.8-4.9); Alkaline Phosphatase 112 U/L (41-126); BUN/Creat Ratio 7.22 Ratio (12.00-20.00); Blood Urea Nitrogen 6.5 mg/dL (9.0-27.0); Calcium 9.2 mg/dL (8.7-10.3); Carbon Dioxide 19.4 mmol/L (21.6-31.8); Chloride 108 mmol/L (96-109); Glucose 99 mg/dL (70-110); Potassium 4.1 mmol/L (3.5-5.5); Sodium 141 mmol/L (135-145); Total Bilirubin 0.8 mg/dL (0.3-1.2); Total Protein 6.4 g/dL (6.2-8.2)
== END 2023-12-06 13:45 | disposition home or self-care (01) | DRG 439 ==
LOC: EC 19:38 → 6NMEDSUR 12-02 03:45 → OBSVTOIN 12-05 14:06
PROVIDERS: ADMIT Hospitalist; ATTEND Hospitalist
DX: K85.90 Acute pancreatitis without necrosis or infection, unspecified (principal); T81.31XA Disruption of external operation (surgical) wound, not elsewhere classified, initial encounter; E78.5 Hyperlipidemia, unspecified; F32.A Depression, unspecified; F41.9 Anxiety disorder, unspecified; F90.9 Attention-deficit hyperactivity disorder, unspecified type; G90.A Postural orthostatic tachycardia syndrome [POTS]; I10 Essential (primary) hypertension; J44.9 Chronic obstructive pulmonary disease, unspecified; J45.909 Unspecified asthma, uncomplicated; K58.9 Irritable bowel syndrome, unspecified; K76.0 Fatty (change of) liver, not elsewhere classified; M06.9 Rheumatoid arthritis, unspecified; M79.7 Fibromyalgia; Z96.642 Presence of left artificial hip joint; Z79.01 Long term (current) use of anticoagulants; Z79.82 Long term (current) use of aspirin; Z79.899 Other long term (current) drug therapy; Z98.2 Presence of cerebrospinal fluid drainage device
CPT/HCPCS: 36415; 76705; 80053; 80061; 81001; 81025; 82150; 83690; 85025; 87636; 87651; 96361; 96374; 96375; 96376; 99285

== ENCOUNTER 2023-12-29 08:46 | Observation (INO) | payer MEDICARE, OTHER ==
[2023-12-29] MEDS: HYDROmorphone 1 MG/ML 1 ML SYRINGE IVP STA ×2 (09:20→10:57)
[2023-12-29] MEDS: ONDANSETRON 4 MG/2 ML VIAL IVP STA ×2 (09:21→13:33)
[2023-12-29] MEDS: SODIUM CHLORIDE 0.9% 1,000 ML IV STA ×3 (09:21→13:33)
[2023-12-29 09:24] LABS: Basophils % (A) 1 %; Eosinophils # (A) 0.2 k/uL (0-0.7); Eosinophils % (A) 3 %; HCT 39.9 % (34.0-46.0); HGB 13.1 gm/dL (11.4-16.0); Lymphocytes # (A) 1.7 k/uL (1.0-4.8); Lymphocytes % (A) 31 %; MCH 27.3 pg (25.0-35.0); MCHC 32.8 g/dL (31.0-37.0); MCV 83.1 fL (80.0-100.0); Mean Platelet Volume 8.7; Monocytes # (A) 0.4 k/uL (0-1.0); Monocytes % (A) 7 %; Neutrophils % (A) 56 %; Platelet Count 255 k/uL (150-450); RBC 4.81 m/uL (3.80-5.40); WBC 5.4 k/uL (3.8-10.6)
[2023-12-29 09:37] LABS: ALT 18 U/L (4-34); AST 28 U/L (14-36); African American GFR (CKD) >90 (>60 ml/min/1.73 sqM); Albumin 4.3 g/dL (3.5-5.0); Alkaline Phosphatase 105 U/L (38-126); Amylase 59 U/L (30-110); Anion Gap 9 mmol/L; Blood Urea Nitrogen 11 mg/dL (7-17); Calcium 9.5 mg/dL (8.4-10.2); Carbon Dioxide 22 mmol/L (22-30); Chloride 107 mmol/L (98-107); Glucose 93 mg/dL (74-99); Lipase 173 U/L (23-300); Non-African American GFR(CKD) 83 (>60 ml/min/1.73 sqM); Potassium 3.9 mmol/L (3.5-5.1); Sodium 138 mmol/L (137-145); Total Bilirubin 2.9 mg/dL (0.2-1.3); Total Protein 6.8 g/dL (6.3-8.2)
--- NOTE | 2023-12-29 09:48 | ED ---
Abdominal Pain HPI - General Chief Complaint: Abdominal Pain Stated Complaint: Abd/Back Pain Time Seen by Provider: 12/29/23 08:54 Source: patient, RN notes reviewed Mode of arrival: ambulatory Limitations: no limitations - History of Present Illness Initial Comments: This is a 43-year-old female who presents to the emergency department for abdominal pain, back pain, urinary incontinence, nausea, and vomiting. States that 3 days ago she was developing pain in the back which she attributed to excess activity. She also developed nausea and vomiting that day. This has since progressed to urinary incontinence, which she states occurs when she has UTIs. She also has pain in the lower abdomen and right flank region. Denies any history of kidney stones. She was hospitalized for pancreatitis last month and states that symptoms feel like they could be related to another bout of this or a UTI. Denies any fevers or chills. MD Complaint: abdominal pain - Related Data Home Medications Medication Instructions Recorded Confirmed Montelukast Sodium [Singulair] 10 mg PO HS 08/13/18 12/29/23 Dicyclomine [Bentyl] 10 mg PO QID PRN 02/17/21 12/29/23 Famotidine [Pepcid] 20 mg PO BID 02/17/21 12/29/23 Rimegepant Sulfate [Nurtec Odt] 75 mg PO DAILY PRN 02/17/21 12/29/23 Erenumab-Aooe [Aimovig 140 mg SQ Q30D 08/04/21 12/29/23 Autoinjector] Metoprolol Tartrate [Lopressor] 25 mg PO HS 10/21/22 12/29/23 clonazePAM 2 mg PO HS 10/21/22 12/29/23 medroxyPROGESTERone [Depo-Provera] 150 mg IM Q90D 10/21/22 12/29/23 Aspirin EC [Ecotrin Low Dose] 81 mg PO DAILY 11/22/22 12/29/23 Nitroglycerin Sl Tabs [Nitrostat] 0.4 mg SUBLINGUAL Q5M PRN 11/22/22 12/29/23 Oxybutynin ER [Ditropan XL] 15 mg PO HS 11/22/22 12/29/23 diphenhydrAMINE HCL [Benadryl] 25 mg PO HS 11/22/22 12/29/23 Cholecalciferol [Vitamin D3 (25 25 mcg PO DAILY 01/25/23 12/29/23 Mcg = 1000 Iu)] Atorvastatin [Lipitor] 40 mg PO DAILY 08/05/23 12/29/23 Lisdexamfetamine Dimesylate 60 mg PO DAILY 08/05/23 12/29/23 [Vyvanse] Nystatin 100,000 Unit/ml Susp 4 ml PO QID PRN 08/05/23 12/29/23 [Mycostatin Oral Susp] Pantoprazole [Protonix] 40 mg PO DAILY 08/05/23 12/29/23 Zolpidem Tartrate [Ambien] 5 mg PO HS 08/05/23 12/29/23 Albuterol Inhaler [Ventolin Hfa 1 - 2 puff INHALATION RT-Q6H PRN 10/27/23 12/29/23 Inhaler] Cetirizine HCl [Zyrtec] 10 mg PO HS 10/27/23 12/29/23 Escitalopram [Lexapro] 10 mg PO HS 10/27/23 12/29/23 Secukinumab [Cosentyx Sensoready 300 mg SQ Q30D 10/27/23 12/29/23 (2 Pens)] tiZANidine [Zanaflex] 4 mg PO TID PRN 10/27/23 12/29/23 Albuterol Nebulized [Ventolin 2.5 mg INHALATION RT-Q6H PRN 11/11/23 12/29/23 Nebulized] Sennosides-Docusate Sodium 2 tab PO HS 11/11/23 12/29/23 [Senokot-S] oxyCODONE-APAP 10-325MG [Percocet 1 tab PO Q4HR 12/29/23 12/29/23 10-325 mg] Previous Rx's Medication Instructions Recorded Clindamycin Gel [Cleocin T 1% Gel] 1 applic TOPICAL BID #1 each 11/07/23 Clobetasol Propionate [Temovate 1 applic TOPICAL HS #1 each 11/07/23 0.05% Cream] Hydrocortisone Cream 1 applic TOPICAL HS #1 each 11/07/23 [Hydrocortisone 2.5% Cream] Magnesium Hydroxide [Milk of 2,400 mg PO DAILY PRN #30 each 11/07/23 Magnesia] metroNIDAZOLE 0.75% CREAM 1 applic TOPICAL DAILY #1 each 11/07/23 [Metrocream 0.75%] Ondansetron Odt [Zofran Odt] 4 mg PO Q8HR PRN #20 tab 12/06/23 Allergies Allergy/AdvReac Type Severity Reaction Status Date / Time ibuprofen [From Motrin] AdvReac Kidney Verified 12/29/23 14:16 Failure metoclopramide HCl AdvReac Hallucinati Verified 12/29/23 14:16 [From Reglan] ons NSAIDS (Non-Steroidal AdvReac Kidney Verified 12/29/23 14:16 Anti-Inflamma Failure pregabalin [From Lyrica] AdvReac Cough Verified 12/29/23 14:16 prochlorperazine AdvReac Hallucinati Verified 12/29/23 14:16 [From Compazine] ons Review of Systems ROS Statement: Those systems with pertinent positive or pertinent negative responses have been documented in the HPI. ROS Other: All systems not noted in ROS Statement are negative. Past Medical History Past Medical History: Asthma, Chest Pain / Angina, Fibromyalgia, GERD/Reflux, Hyperlipidemia, Liver Disease, Neurologic Disorder, Rheumatoid Arthritis (RA) Additional Past Medical History / Comment(s): PSORIATIC ARTHRITIS. POTS. Chiari malformation with [employer] shunt. Migraines. IBS. Lupus. OCCASIONAL DIZZINESS, IRREGU LAR HEART RATE. HX POLYNEPHRITIS. Non-alcoholic fatty liver. History of Any Multi-Drug Resistant Organisms: None Reported Past Surgical History: Bladder Surgery, Hysterectomy, Joint Replacement, Orthopedic Surgery, Tonsillectomy, Tubal Ligation Additional Past Surgical History / Comment(s): Chiari decompression, shunt to br ain, brain surgery X5, bladder suspension, bladder lift partial hysterectomy, uterus lift, bilateral carpal tunnel. Past Anesthesia/Blood Transfusion Reactions: No Reported Reaction Past Psychological History: ADD/ADHD, Anxiety, Depression Smoking Status: Never smoker Past Alcohol Use History: None Reported Past Drug Use History: None Reported - Past Family History Mother Family Medical History: No Reported History Father Family Medical History: Unable to Obtain General Exam Limitations: no limitations General appearance: alert, in no apparent distress Head exam: Present: atraumatic, normocephalic, normal inspection Respiratory exam: Present: normal lung sounds bilaterally. Absent: respiratory distress, wheezes, rales, rhonchi, stridor Cardiovascular Exam: Present: regular rate, normal rhythm, normal heart sounds. Absent: systolic murmur, diastolic murmur, rubs, gallop, clicks GI/Abdominal exam: Present: soft, tenderness (diffuse), normal bowel sounds. Absent: distended Back exam: Present: CVA tenderness (R). Absent: CVA tenderness (L) Neurological exam: Present: alert, oriented X3, CN II-XII intact Psychiatric exam: Present: normal affect, normal mood Skin exam: Present: warm, dry, intact, normal color. Absent: rash Course Vital Signs 12/29/23 12/29/23 12/29/23 08:48 09:53 14:00 Temperature 97.9 F Pulse Rate 70 62 64 Respiratory 18 18 18 Rate Blood Pressure 130/81 120/76 124/68 O2 Sat by Pulse 98 100 100 Oximetry 12/29/23 15:12 Temperature Pulse Rate 51 L Respiratory 18 Rate Blood Pressure 118/59 O2 Sat by Pulse 100 Oximetry Medical Decision Making - Medical Decision Making This is a 43 year old female who presents to the emergency department for abdominal pain. Was pt. sent in by a medical professional or institution? @ -No Did you speak to anyone other than the patient for history? @ -No Did you review nursing and triage notes? @ -Yes, and I agree, it is accurate with regards to the patient's symptoms. Were old charts reviewed? @ -No Differential Diagnosis? @ -Differential Abdominal Pain Women: Appendicitis, Cholecystitis, diverticulosis, ischemic bowel, pancreatitis, hepatitis, UTI, gastroenteritis, AAA, incarcerated hernia, bowel obstruction, constipation, inflammatory bowel, hepatitis, peptic ulcer disease, splenic infarction, perforated viscus, vulvitis, ovarian torsion, PID, kidney stone, placenta abruption, this is not meant to be an all-inclusive list EKG interpreted by me (3pts min.)? @ -Not obtained X-rays interpreted by me (1pt min.)? @ -Not obtained CT interpreted by me (1pt min.)? @ -CT scan of the abdomen and pelvis obtained. My interpretation identifies no evidence of bowel wall thickening or free air. U/S interpreted by me (1pt. min.)? @ -Not obtained What testing was considered but not performed? (CT, X-rays, U/S, labs)? Why? @ -None What meds were considered but not given? Why? @ -None Did you discuss the management of the patient with other professionals? @ -Yes, Dr. Maria, who accepts the patient for admission. Did you reconcile home meds? @ -Yes Was smoking cessation discussed for >3mins.? @ -No Was critical care preformed (if so, how long)? @ -No Were there social determinants of health that impacted care today? How? (Homelessness, low income, unemployed, alcoholism, drug addiction, transportation, low edu. Level, literacy, decrease access to med. care, senior care, rehab)? @ -No Was there de-escalation of care discussed even if they declined? (Discuss DNR or withdrawal of care, Hospice)? @ -No What co-morbidities impacted this encounter? (DM, HTN, Smoking, COPD, CAD, Cancer, CVA, Hep., AIDS, mental health diagnosis, sleep apnea, morbid obesity)? @ -IBS, GERD, fibromyalgia, rheumatoid arthritis Was patient admitted / discharged? @ -Admitted. Lab work demonstrates an elevated total bilirubin and was otherwise unremarkable. Patient has had elevated bilirubin in the past, but not to this extent. Bilirubin fractions obtained and she was found to have an unconjugated bilirubin of 2.3 and conjugated bilirubin of 0.0. Urinalysis negative for signs of infection. CT scan of the abdomen and pelvis obtained and found to be relatively unremarkable. The cause of the patient's symptoms is not currently clear. She required multiple doses of pain and nausea medication to get her symptoms to a somewhat tolerable level, and it did not last very long when it did improve. She is also already on pain medication chronically, limiting our prescription options for the patient. Based on her level of discomfort, she was uncomfortable with discharge home. Patient subsequently admitted to medicine for intractable abdominal pain. Consult placed for GI. Undiagnosed new problem with uncertain prognosis? @ -None Drug Therapy requiring intensive monitoring for toxicity (Heparin, Nitro, Insulin, Cardizem)? @ -None Were any procedures done? @ -None Diagnosis/symptom? @ -Intractable abdominal pain Acute, or Chronic, or Acute on Chronic? @ -Acute Uncomplicated (without systemic symptoms) or Complicated (systemic symptoms)? @ -Complicated Side effects of treatment? @ -None Exacerbation, Progression, or Severe Exacerbation] @ -Not applicable Poses a threat to life or bodily function? @ -Yes This case was discussed in detail with the attending ED physician, Dr. Granaods. Presentation, findings, and treatment plan discussed in detail as well. - Lab Data Result diagrams: 12/29/23 09:13 12/29/23 09:13 Lab Results 12/29/23 12/29/23 12/29/23 Range/Units 09:13 09:13 09:13 WBC 5.4 (3.8-10.6) k/uL RBC 4.81 (3.80-5.40) m/uL Hgb 13.1 (11.4-16.0) gm/dL Hct 39.9 (34.0-46.0) % MCV 83.1 (80.0-100.0) fL MCH 27.3 (25.0-35.0) pg MCHC 32.8 (31.0-37.0) g/dL RDW 14.0 (11.5-15.5) % Plt Count 255 (150-450) k/uL MPV 8.7 Neutrophils % 56 % Lymphocytes % 31 % Monocytes % 7 % Eosinophils % 3 % Basophils % 1 % Neutrophils # 3.0 (1.3-7.7) k/uL Lymphocytes # 1.7 (1.0-4.8) k/uL Monocytes # 0.4 (0-1.0) k/uL Eosinophils # 0.2 (0-0.7) k/uL Basophils # 0.0 (0-0.2) k/uL Sodium 138 (137-145) mmol/L Potassium 3.9 (3.5-5.1) mmol/L Chloride 107 (98-107) mmol/L Carbon Dioxide 22 (22-30) mmol/L Anion Gap 9 mmol/L BUN 11 (7-17) mg/dL Creatinine 0.87 (0.52-1.04) mg/dL Est GFR (CKD-EPI)AfAm >90 (>60 ml/min/1.73 sqM) Est GFR (CKD-EPI)NonAf 83 (>60 ml/min/1.73 sqM) Glucose 93 (74-99) mg/dL Plasma Lactic Acid Paulino (0.7-2.0) mmol/L Calcium 9.5 (8.4-10.2) mg/dL Total Bilirubin 2.9 H (0.2-1.3) mg/dL Conjugated Bilirubin (0.0-0.3) mg/dL Unconjugated Bilirubin (0.0-1.1) mg/dL Delta Bilirubin (0.0-0.2) mg/dL AST 28 (14-36) U/L ALT 18 (4-34) U/L Alkaline Phosphatase 105 (38-126) U/L Total Protein 6.8 (6.3-8.2) g/dL Albumin 4.3 (3.5-5.0) g/dL Amylase 59 (30-110) U/L Lipase 173 (23-300) U/L Urine Color Colorless Urine Appearance Clear (Clear) Urine pH 5.5 (5.0-8.0) Ur Specific Dazey 1.012 (1.001-1.035) Urine Protein Negative (Negative) Urine Glucose (UA) Negative (Negative) Urine Ketones Negative (Negative) Urine Blood Negative (Negative) Urine Nitrite Negative (Negative) Urine Bilirubin Negative (Negative) Urine Urobilinogen <2.0 (<2.0) mg/dL Ur Leukocyte Esterase Negative (Negative) 12/29/23 12/29/23 Range/Units 09:13 13:43 WBC (3.8-10.6) k/uL RBC (3.80-5.40) m/uL Hgb (11.4-16.0) gm/dL Hct (34.0-46.0) % MCV (80.0-100.0) fL MCH (25.0-35.0) pg MCHC (31.0-37.0) g/dL RDW (11.5-15.5) % Plt Count (150-450) k/uL MPV Neutrophils % % Lymphocytes % % Monocytes % % Eosinophils % % Basophils % % Neutrophils # (1.3-7.7) k/uL Lymphocytes # (1.0-4.8) k/uL Monocytes # (0-1.0) k/uL Eosinophils # (0-0.7) k/uL Basophils # (0-0.2) k/uL Sodium (137-145) mmol/L Potassium (3.5-5.1) mmol/L Chloride (98-107) mmol/L Carbon Dioxide (22-30) mmol/L Anion Gap mmol/L BUN (7-17) mg/dL Creatinine (0.52-1.04) mg/dL Est GFR (CKD-EPI)AfAm (>60 ml/min/1.73 sqM) Est GFR (CKD-EPI)NonAf (>60 ml/min/1.73 sqM) Glucose (74-99) mg/dL Plasma Lactic Acid Paulino 1.0 (0.7-2.0) mmol/L Calcium (8.4-10.2) mg/dL Total Bilirubin 2.8 H (0.2-1.3) mg/dL Conjugated Bilirubin 0.0 (0.0-0.3) mg/dL Unconjugated Bilirubin 2.3 H (0.0-1.1) mg/dL Delta Bilirubin 0.5 H (0.0-0.2) mg/dL AST (14-36) U/L ALT (4-34) U/L Alkaline Phosphatase (38-126) U/L Total Protein (6.3-8.2) g/dL Albumin (3.5-5.0) g/dL Amylase (30-110) U/L Lipase (23-300) U/L Urine Color Urine Appearance (Clear) Urine pH (5.0-8.0) Ur Specific D[place] (1.001-1.035) Urine Protein (Negative) Urine Glucose (UA) (Negative) Urine Ketones (Negative) Urine Blood (Negative) Urine Nitrite (Negative) Urine Bilirubin (Negative) Urine Urobilinogen (<2.0) mg/dL Ur Leukocyte Esterase (Negative) - Radiology Data Radiology results: report reviewed, image reviewed Disposition Clinical Impression: Intractable abdominal pain Disposition: ADMITTED IP TO THIS HOSP
[2023-12-29 10:51] LABS: Appearance,Urine Clear (Clear); Bilirubin,Urine Negative (Negative); Blood,Urine Negative (Negative); Color,Urine Colorless; Glucose,Urine (UA) Negative (Negative); Ketones,Urine Negative (Negative); Leukocyte Esterase,Urine Negative (Negative); Nitrite,Urine Negative (Negative); PH, Urine 5.5 (5.0-8.0); Protein,Urine Negative (Negative); Specific Gravity,Urine 1.012 (1.001-1.035); Urobilinogen,Urine <2.0 mg/dL (<2.0)
--- NOTE | 2023-12-29 10:55 | CT ---
EXAMINATION TYPE: CT abdomen pelvis w con DATE OF EXAM: 12/29/2023 COMPARISON: 10/21/2022 INDICATION: Upper abd pain, history of pancreatitis DLP: 1294.9 mGycm, Automated exposure control for dose reduction was used. CONTRAST: 100 mL of Isovue 300. Study performed without Oral Contrast TECHNIQUE: Axial images were obtained from above the diaphragm to the pubic rami in the axial plane a t 5 mm thick sections. Reconstructed images are reviewed on the computer in the coronal plane. FINDINGS: Limited CT sections are obtained the lung bases. The lung bases are clear. CT ABDOMEN: Liver: Normal Spleen: Normal Pancreas: Normal. No adjacent inflammatory changes. No pseudocyst formation or abscess identified. Adrenal glands: The adrenal glands are normal. Gallbladder: Normal Kidneys: No masses are evident. No hydronephrosis is present. No cysts are present. Delayed images were obtained through the kidneys, which remain unremarkable. Aorta: Normal Inferior vena cava: Normal. CT PELVIS: Catheter tip is within the pelvis. Left hip prosthesis causes beam hardening artifact in s ome limitation. Loops of bowel within the abdomen and pelvis are normal. The study is performed without oral cont rast limiting bowel evaluation Appendix: Normal as visualized. Urinary bladder: Limited visualization Genitourinary structures: Uterus appears atrophic. Ovaries are not clearly evident. Osseous structures: No suspicious lytic or sclerotic lesions. IMPRESSION: 1. No suspicious changes at the pancreas. Correlate with patient's laboratory results. Follow-up can be performed as clinically indicated.
[2023-12-29] MEDS: FAMOTIDINE 20 MG/2 ML VIAL IV STA (12:22)
[2023-12-29] MEDS: HYDROmorphone 0.5 MG/0.5 ML SYRINGE IVP STA (12:23)
[2023-12-29] MEDS: PANTOPRAZOLE 40 MG/10 ML VIAL IVP STA (12:23)
[2023-12-29] MEDS: HYOSCYAMINE SULFATE 0.125 MG TAB PO ONE (13:35)
[2023-12-29 14:05] LABS: Bilirubin, Delta 0.5 mg/dL (0.0-0.2); Bilirubin,Unconjugated 2.3 mg/dL (0.0-1.1); Total Bilirubin 2.8 mg/dL (0.2-1.3)
[2023-12-29] MEDS ORDERED: ACETAMINOPHEN TAB 325 MG TAB PO PRN (14:05)
[2023-12-29] MEDS ORDERED: NALOXONE 0.4 MG/ML 1 ML VIAL IV PRN (14:05)
[2023-12-29] MEDS ORDERED: DICYCLOMINE 10 MG CAP PO PRN (14:40)
[2023-12-29] MEDS ORDERED: NYSTATIN 100,000 UNIT/ML SUSP 500,000 UNIT/5 ML CUP PO PRN (14:40)
[2023-12-29] MEDS ORDERED: MAGNESIUM HYDROXIDE 2,400 MG/30 ML CUP PO PRN (14:40)
[2023-12-29] MEDS ORDERED: tiZANidine 4 MG TAB PO PRN (14:40)
[2023-12-29] MEDS ORDERED: NON FORMULARY DRUG (Rimegepant Sulfate [Nurtec Odt] 75 MG Tab.Rapdis) PO PRN (14:40)
[2023-12-29] MEDS ORDERED: NITROGLYCERIN SL TABS 0.4 MG TAB SUBLINGUAL PRN (14:40)
[2023-12-29] MEDS ORDERED: ALBUTEROL NEBULIZED 2.5 MG/3 ML INHALATION PRN (14:40)
[2023-12-29] MEDS: oxyCODONE-APAP 10-325MG 1 EACH TAB PO SCH (15:06)
[2023-12-29] MEDS: SECUKINUMAB 150 MG/ML SQ SCH (15:45)
[2023-12-29] MEDS: ALBUTEROL NEBULIZED 2.5 MG/3 ML INHALATION PRN (16:05)
[2023-12-29] MEDS: HYDROmorphone 0.5 MG/0.5 ML SYRINGE IVP PRN (17:50)
[2023-12-29] MEDS: ONDANSETRON 4 MG/2 ML VIAL IVP PRN (17:51)
[2023-12-29] MEDS: SENNOSIDES-DOCUSATE SODIUM 1 EACH TAB PO SCH (20:19)
[2023-12-29] MEDS: MONTELUKAST 10 MG TAB PO SCH (20:19)
[2023-12-29] MEDS: ESCITALOPRAM 10 MG TAB PO SCH (20:19)
[2023-12-29] MEDS: LORATADINE 10 MG TAB PO SCH (20:19)
[2023-12-29] MEDS: clonazePAM 1 MG TAB PO SCH (20:20)
[2023-12-29] MEDS: FAMOTIDINE 20 MG TAB PO SCH (20:20)
[2023-12-29] MEDS: METOPROLOL TARTRATE 25 MG TAB PO SCH (20:20)
[2023-12-29] MEDS: diphenhydrAMINE 25 MG CAP PO SCH (20:21)
[2023-12-29] MEDS: ZOLPIDEM 5 MG TAB PO SCH (20:21)
[2023-12-29] MEDS: NON FORMULARY DRUG (Clindamycin Gel 1 APPLIC Gel) TOPICAL SCH (20:54)
[2023-12-29] MEDS: HYDROmorphone 1 MG/ML 1 ML SYRINGE IVP PRN (21:31)
[2023-12-29] MEDS: OXYBUTYNIN 15 MG TAB.ER.24 PO SCH (21:45)
[2023-12-29] MEDS: CLOBETASOL PROP 0.05% CR 15GM TOPICAL SCH (21:45)
[2023-12-29] MEDS: HYDROCORTISONE 1% CREAM 30 GM TUBE TOPICAL SCH (21:46)
[2023-12-30] MEDS: PANTOPRAZOLE 40 MG TABLET PO SCH (06:18)
--- NOTE | 2023-12-30 09:09 | P.CONS ---
History of Present Illness - Reason for Consult Consult date: 12/30/23 Intractable abdominal pain Requesting physician: Ml Wagner - Chief Complaint Abdominal pain - History of Present Illness 43-year-old female who presented to the emergency department with multiple complaints including back harsha abdominal pain, urinary incontinence, nausea and vomiting. Gastroenterology was consulted for intractable abdominal pain. She has a past medical history including irritable bowel syndrome, underwent hip replacement in October of this year and states then she was readmitted for infection. States that she was admitted for pancreatitis 2 weeks ago with mild elevation of lipase 615 during that time she also had an ultrasound with no acute findings. This admission labs are unremarkable. She has elevated total bilirubin which she has had for many years, AST, ALT, alk phos and lipase all normal. She had a CT of the abdomen at that time that showed no acute findings. Complaints of lower abdominal pain, flank pain. No nausea or vomiting. States she has been seen with gastroenterology in the past for IBS however missed 2 appointments now and was dismissed from the practice apparently. Currently she denies any nausea or vomiting she has been on a clear liquid diet and tolerating well. Abdominal pain improved. Review of Systems REVIEW OF SYSTEMS: CARDIOPULMONARY: No chest pain or shortness of breath. Gastrointestinal: Abdominal pain. No nausea or vomiting. No hematemesis, coffee-ground emesis. No rectal bleeding, or melena. GENITOURINARY: No dysuria or hematuria. Flank pain. Incontinence reported. MUSCULOSKELETAL: Reports normal range of motion. Back pain. SKIN: No rashes. No jaundice. ENDOCRINE: No chills, fevers. No excessive weight gain or loss. No polydipsia or polyuria. PSYCHIATRIC: Unremarkable. NEUROLOGY: No change in mental status. Denies dizziness, headache. ENT: Vision unremarkable. CONSTITUTIONAL: No recent weight loss. No fever, chills, night sweats. Past Medical History Past Medical History: Asthma, Chest Pain / Angina, Fibromyalgia, GERD/Reflux, Hyperlipidemia, Liver Disease, Neurologic Disorder, Rheumatoid Arthritis (RA) Additional Past Medical History / Comment(s): PSORIATIC ARTHRITIS. POTS. 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 Migraines. IBS. Lupus. OCCASIONAL DIZZINESS, IRREGULAR HEART RATE. HX POLYNEPHRITIS. Non-alcoholic fatty liver. History of Any Multi-Drug Resistant Organisms: None Reported Past Surgical History: Bladder Surgery, Hysterectomy, Joint Replacement, Orthopedic Surgery, Tonsillectomy, Tubal Ligation Additional Past Surgical History / Comment(s): Chiari decompression, shunt to brain, brain surgery X5, bladder suspension, bladder lift partial hysterectomy, uterus lift, bilateral carpal tunnel. Past Anesthesia/Blood Transfusion Reactions: No Reported Reaction Past Psychological History: ADD/ADHD, Anxiety, Depression Additional Psychological History / Comment(s): ADD. Smoking Status: Never smoker Past Alcohol Use History: None Reported Past Drug Use History: None Reported - Past Family History Mother Family Medical History: No Reported History Father Family Medical History: Unable to Obtain Medications and Allergies Home Medications Medication Instructions Recorded Confirmed Type Montelukast Sodium [Singulair] 10 mg PO HS 08/13/18 12/29/23 History Dicyclomine [Bentyl] 10 mg PO QID PRN 02/17/21 12/29/23 History Famotidine [Pepcid] 20 mg PO BID 02/17/21 12/29/23 History Rimegepant Sulfate [Nurtec Odt] 75 mg PO DAILY PRN 02/17/21 12/29/23 History Erenumab-Aooe [Aimovig 140 mg SQ Q30D 08/04/21 12/29/23 History Autoinjector] Metoprolol Tartrate [Lopressor] 25 mg PO HS 10/21/22 12/29/23 History clonazePAM 2 mg PO HS 10/21/22 12/29/23 History medroxyPROGESTERone [Depo-Provera] 150 mg IM Q90D 10/21/22 12/29/23 History Aspirin EC [Ecotrin Low Dose] 81 mg PO DAILY 11/22/22 12/29/23 History Nitroglycerin Sl Tabs [Nitrostat] 0.4 mg SUBLINGUAL Q5M PRN 11/22/22 12/29/23 History Oxybutynin ER [Ditropan XL] 15 mg PO HS 11/22/22 12/29/23 History diphenhydrAMINE HCL [Benadryl] 25 mg PO HS 11/22/22 12/29/23 History Cholecalciferol [Vitamin D3 (25 25 mcg PO DAILY 01/25/23 12/29/23 History Mcg = 1000 Iu)] Atorvastatin [Lipitor] 40 mg PO DAILY 08/05/23 12/29/23 History Lisdexamfetamine Dimesylate 60 mg PO DAILY 08/05/23 12/29/23 History [Vyvanse] Nystatin 100,000 Unit/ml Susp 4 ml PO QID PRN 08/05/23 12/29/23 History [Mycostatin Oral Susp] Pantoprazole [Protonix] 40 mg PO DAILY 08/05/23 12/29/23 History Zolpidem Tartrate [Ambien] 5 mg PO HS 08/05/23 12/29/23 History Albuterol Inhaler [Ventolin Hfa 1 - 2 puff INHALATION RT-Q6H PRN 10/27/23 12/29/23 History Inhaler] Cetirizine HCl [Zyrtec] 10 mg PO HS 10/27/23 12/29/23 History Escitalopram [Lexapro] 10 mg PO HS 10/27/23 12/29/23 History Secukinumab [Cosentyx Sensoready 300 mg SQ Q30D 10/27/23 12/29/23 History (2 Pens)] tiZANidine [Zanaflex] 4 mg PO TID PRN 10/27/23 12/29/23 History Clindamycin Gel [Cleocin T 1% Gel] 1 applic TOPICAL BID #1 each 11/07/23 12/29/23 Rx Clobetasol Propionate [Temovate 1 applic TOPICAL HS #1 each 11/07/23 12/29/23 Rx 0.05% Cream] Hydrocortisone Cream 1 applic TOPICAL HS #1 each 11/07/23 12/29/23 Rx [Hydrocortisone 2.5% Cream] Magnesium Hydroxide [Milk of 2,400 mg PO DAILY PRN #30 each 11/07/23 12/29/23 Rx Magnesia] metroNIDAZOLE 0.75% CREAM 1 applic TOPICAL DAILY #1 each 11/07/23 12/29/23 Rx [Metrocream 0.75%] Albuterol Nebulized [Ventolin 2.5 mg INHALATION RT-Q6H PRN 11/11/23 12/29/23 History Nebulized] Sennosides-Docusate Sodium 2 tab PO HS 11/11/23 12/29/23 History [Senokot-S] Ondansetron Odt [Zofran Odt] 4 mg PO Q8HR PRN #20 tab 12/06/23 12/29/23 Rx oxyCODONE-APAP 10-325MG [Percocet 1 tab PO Q4HR 12/29/23 12/29/23 History 10-325 mg] Allergies Allergy/AdvReac Type Severity Reaction Status Date / Time ibuprofen [From Motrin] AdvReac Kidney Verified 12/29/23 14:16 Failure metoclopramide HCl AdvReac Hallucinati Verified 12/29/23 14:16 [From Reglan] ons NSAIDS (Non-Steroidal AdvReac Kidney Verified 12/29/23 14:16 Anti-Inflamma Failure pregabalin [From Lyrica] AdvReac Cough Verified 12/29/23 14:16 prochlorperazine AdvReac Hallucinati Verified 12/29/23 14:16 [From Compazine] ons Physical Exam Vitals: Vital Signs Temp Pulse Pulse Resp BP BP Pulse Ox 12/30/23 03:15 98.0 F 75 16 115/77 99 12/29/23 23:48 97.7 F 66 16 123/85 99 12/29/23 23:45 66 12/29/23 22:00 79 18 133/75 97 12/29/23 20:00 71 18 125/85 98 12/29/23 19:43 64 18 130/63 97 12/29/23 18:23 98.3 F 66 18 120/84 97 12/29/23 16:16 73 12/29/23 16:08 68 12/29/23 15:12 51 L 18 118/59 100 12/29/23 14:00 64 18 124/68 100 12/29/23 09:53 62 18 120/76 100 12/29/23 08:48 97.9 F 70 18 130/81 98 Intake and Output 12/29/23 12/29/23 12/30/23 14:59 22:59 06:59 Other: Voiding Method Toilet # Voids 2 Weight 87.543 kg 87.543 kg General appearance: The patient is alert, oriented, appears in no acute distress. HET: Head is normocephalic and atraumatic. Conjunctiva pink. Sclera anicteric. Neck: Supple without lymphadenopathy. Trachea midline. Heart: Regular. Lungs: Equal expansion, normal respiratory effort. Abdomen: Soft, mild diffuse tenderness, nondistended. Skin: No rashes. No jaundice. Extremities: Normal skin color and turgor. No pedal edema. Neurological: No focal deficits. Alert and oriented x3. Results CBC & Chem 7: 12/29/23 09:13 12/29/23 09:13 Labs: Abnormal Lab Results - Last 24 Hours (Table) 12/29/23 12/29/23 Range/Units 09:13 13:43 Total Bilirubin 2.9 H 2.8 H (0.2-1.3) mg/dL Unconjugated Bilirubin 2.3 H (0.0-1.1) mg/dL Delta Bilirubin 0.5 H (0.0-0.2) mg/dL CT scan - abdomen: report reviewed (No acute findings) Assessment and Plan (1) IBS (irritable bowel syndrome) Narrative/Plan: 43-year-old female with a history of irritable bowel syndrome who has followed with gastroenterology in the past. Likely abdominal pain is secondary to mixed IBS with constipation and diarrhea. Last endoscopic evaluation 2014 report not available at this time. Recommend continuing with Bentyl 10 mg 4 times daily, will make it scheduled. Continue Pepcid and Protonix. No plans on any endoscopic evaluation or further workup from gastroenterology. Advance diet as tolerated and patient may be discharged with outpatient follow-up with gastroenterology. Current Visit: Yes Status: Acute Code(s): K58.9 - IRRITABLE BOWEL SYNDROME WITHOUT DIARRHEA SNOMED Code(s): 33653979 (2) Abdominal pain Current Visit: Yes Status: Acute Code(s): R10.9 - UNSPECIFIED ABDOMINAL PAIN SNOMED Code(s): 34545270 (3) Elevated bilirubin Narrative/Plan: Patient has history of elevated total bilirubin. Bilirubin fractionated with conjugated 0.0 unconjugated 2.3. Patient likely with Gilbert's syndrome. No further workup indicated. Current Visit: Yes Status: Acute Code(s): R17 - UNSPECIFIED JAUNDICE SNOMED Code(s): 66015638 Plan: 1. Continue symptomatic and supportive care 2. Advance to regular diet 3. Change Bentyl to scheduled 4. Continue Protonix and Pepcid as ordered 5. Encourage ambulation 6. No plans on endoscopic evaluation or further gastroenterology workup Thank you for this consultation, patient is cleared for discharge from gastroenterology. Recommend follow-up in [address] Rani Gregory I agree with the dictator's note, documented as a scribe by Bethanie Menon.
[2023-12-30] MEDS: PANTOPRAZOLE 40 MG/10 ML VIAL IV SCH (09:44)
[2023-12-30] MEDS: ATORVASTATIN 40 MG TAB PO SCH (09:45)
[2023-12-30] MEDS: ASPIRIN 81 MG PO SCH (09:45)
[2023-12-30] MEDS: CHOLECALCIFEROL 25 MCG (1000 IU) TABLET PO SCH (09:45)
[2023-12-30] MEDS: NON FORMULARY DRUG (Lisdexamfetamine Dimesylate [Vyvanse] 60 MG Capsule) PO SCH (09:46)
[2023-12-30] MEDS: DICYCLOMINE 10 MG CAP PO SCH (12:19)
[2023-12-30] MEDS: ONDANSETRON ODT 4 MG TAB PO PRN (17:26)
--- NOTE | 2023-12-30 19:44 | XR ---
Left hip. HISTORY: Pain following trauma Comparison: 11/01/2023 TECHNIQUE: 2 views left hip were obtained FINDINGS: There is a left hip prosthesis in anatomic alignment. There is no acute fracture or dislocation. IMPRESSION: Unremarkable left hip prosthesis. No acute trauma
[2023-12-31] MEDS: MORPHINE SULFATE 4 MG/ML SYRINGE IVP PRN
--- NOTE | 2023-12-31 11:51 | P.HPIM ---
History of Present Illness H&P Date: 12/30/23 Chief Complaint: Abdominal pain 43-year-old female who presents to the emergency department for abdominal pain, back pain, urinary incontinence, nausea, and vomiting. States that 3 days ago she was developing pain in the back which she attributed to excess activity. She also developed nausea and vomiting that day. This has since progressed to urinary incontinence, which she states occurs when she has UTIs. She also has pain in the lower abdomen and right flank region. Denies any history of kidney stones. She was hospitalized for pancreatitis last month and states that symptoms feel like they could be related to another bout of this or a UTI. Denies any fevers or chills. States that she was admitted for pancreatitis 2 weeks ago with mild elevation of lipase 615 during that time she also had an ultrasound with no acute findings. This admission labs are unremarkable. She has elevated total bilirubin which she has had for many years, AST, ALT, alk phos and lipase all normal. She had a CT of the abdomen at that time that showed no acute findings. Complaints of lower abdominal pain, flank pain. No nausea or vomiting. States she has been seen with gastroenterology in the past for IBS Review of Systems REVIEW OF SYSTEMS: CONSTITUTIONAL: No fever, no malaise, no fatigue. HEENT: No recent visual problems or hearing problems. Denied any sore throat. CARDIOVASCULAR: No chest pain, orthopnea, PND, no palpitations, no syncope. PULMONARY: No shortness of breath, no cough, no hemoptysis. GASTROINTESTINAL: No diarrhea, no nausea, no vomiting, no abdominal pain. NEUROLOGICAL: No headaches, no weakness, no numbness. HEMATOLOGICAL: Denies any bleeding or petechiae. GENITOURINARY: Denies any burning micturition, frequency, or urgency. MUSCULOSKELETAL/RHEUMATOLOGICAL: Denies any joint pain, swelling, or any muscle pain. ENDOCRINE: Denies any polyuria or polydipsia. The rest of the 14-point review of systems is negative. Past Medical History Past Medical History: Asthma, Chest Pain / Angina, Fibromyalgia, GERD/Reflux, Hyperlipidemia, Liver Disease, Neurologic Disorder, Rheumatoid Arthritis (RA) Additional Past Medical History / Comment(s): PSORIATIC ARTHRITIS. POTS. 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 Migraines. IBS. Lupus. OCCASIONAL DIZZINESS, IRREGULAR HEART RATE. HX POLYNEPHRITIS. Non-alcoholic fatty liver. History of Any Multi-Drug Resistant Organisms: None Reported Past Surgical History: Bladder Surgery, Hysterectomy, Joint Replacement, Orthopedic Surgery, Tonsillectomy, Tubal Ligation Additional Past Surgical History / Comment(s): Chiari decompression, shunt to brain, brain surgery X5, bladder suspension, bladder lift partial hysterectomy, uterus lift, bilateral carpal tunnel. Past Anesthesia/Blood Transfusion Reactions: No Reported Reaction Past Psychological History: ADD/ADHD, Anxiety, Depression Additional Psychological History / Comment(s): ADD. Smoking Status: Never smoker Past Alcohol Use History: None Reported Past Drug Use History: None Reported - Past Family History Mother Family Medical History: No Reported History Father Family Medical History: Unable to Obtain Medications and Allergies Home Medications Medication Instructions Recorded Confirmed Type Montelukast Sodium [Singulair] 10 mg PO HS 08/13/18 12/29/23 History Dicyclomine [Bentyl] 10 mg PO QID PRN 02/17/21 12/29/23 History Famotidine [Pepcid] 20 mg PO BID 02/17/21 12/29/23 History Rimegepant Sulfate [Nurtec Odt] 75 mg PO DAILY PRN 02/17/21 12/29/23 History Erenumab-Aooe [Aimovig 140 mg SQ Q30D 08/04/21 12/29/23 History Autoinjector] Metoprolol Tartrate [Lopressor] 25 mg PO HS 10/21/22 12/29/23 History clonazePAM 2 mg PO HS 10/21/22 12/29/23 History medroxyPROGESTERone [Depo-Provera] 150 mg IM Q90D 10/21/22 12/29/23 History Aspirin EC [Ecotrin Low Dose] 81 mg PO DAILY 11/22/22 12/29/23 History Nitroglycerin Sl Tabs [Nitrostat] 0.4 mg SUBLINGUAL Q5M PRN 11/22/22 12/29/23 History Oxybutynin ER [Ditropan XL] 15 mg PO HS 11/22/22 12/29/23 History diphenhydrAMINE HCL [Benadryl] 25 mg PO HS 11/22/22 12/29/23 History Cholecalciferol [Vitamin D3 (25 25 mcg PO DAILY 01/25/23 12/29/23 History Mcg = 1000 Iu)] Atorvastatin [Lipitor] 40 mg PO DAILY 08/05/23 12/29/23 History Lisdexamfetamine Dimesylate 60 mg PO DAILY 08/05/23 12/29/23 History [Vyvanse] Nystatin 100,000 Unit/ml Susp 4 ml PO QID PRN 08/05/23 12/29/23 History [Mycostatin Oral Susp] Pantoprazole [Protonix] 40 mg PO DAILY 08/05/23 12/29/23 History Zolpidem Tartrate [Ambien] 5 mg PO HS 08/05/23 12/29/23 History Albuterol Inhaler [Ventolin Hfa 1 - 2 puff INHALATION RT-Q6H PRN 10/27/23 12/29/23 History Inhaler] Cetirizine HCl [Zyrtec] 10 mg PO HS 10/27/23 12/29/23 History Escitalopram [Lexapro] 10 mg PO HS 10/27/23 12/29/23 History Secukinumab [Cosentyx Sensoready 300 mg SQ Q30D 10/27/23 12/29/23 History (2 Pens)] tiZANidine [Zanaflex] 4 mg PO TID PRN 10/27/23 12/29/23 History Clindamycin Gel [Cleocin T 1% Gel] 1 applic TOPICAL BID #1 each 11/07/23 12/29/23 Rx Clobetasol Propionate [Temovate 1 applic TOPICAL HS #1 each 11/07/23 12/29/23 Rx 0.05% Cream] Hydrocortisone Cream 1 applic TOPICAL HS #1 each 11/07/23 12/29/23 Rx [Hydrocortisone 2.5% Cream] Magnesium Hydroxide [Milk of 2,400 mg PO DAILY PRN #30 each 11/07/23 12/29/23 Rx Magnesia] metroNIDAZOLE 0.75% CREAM 1 applic TOPICAL DAILY #1 each 11/07/23 12/29/23 Rx [Metrocream 0.75%] Albuterol Nebulized [Ventolin 2.5 mg INHALATION RT-Q6H PRN 11/11/23 12/29/23 History Nebulized] Sennosides-Docusate Sodium 2 tab PO HS 11/11/23 12/29/23 History [Senokot-S] Ondansetron Odt [Zofran Odt] 4 mg PO Q8HR PRN #20 tab 12/06/23 12/29/23 Rx oxyCODONE-APAP 10-325MG [Percocet 1 tab PO Q4HR 12/29/23 12/29/23 History 10-325 mg] Allergies Allergy/AdvReac Type Severity Reaction Status Date / Time ibuprofen [From Motrin] AdvReac Kidney Verified 12/29/23 14:16 Failure metoclopramide HCl AdvReac Hallucinati Verified 12/29/23 14:16 [From Reglan] ons NSAIDS (Non-Steroidal AdvReac Kidney Verified 12/29/23 14:16 Anti-Inflamma Failure pregabalin [From Lyrica] AdvReac Cough Verified 12/29/23 14:16 prochlorperazine AdvReac Hallucinati Verified 12/29/23 14:16 [From Compazine] ons Physical Exam Vitals: Vital Signs Temp Pulse Pulse Resp BP BP Pulse Ox 12/30/23 07:25 98.3 F 62 16 126/86 98 12/30/23 03:15 98.0 F 75 16 115/77 99 12/29/23 23:48 97.7 F 66 16 123/85 99 12/29/23 23:45 66 12/29/23 22:00 79 18 133/75 97 12/29/23 20:00 71 18 125/85 98 12/29/23 19:43 64 18 130/63 97 12/29/23 18:23 98.3 F 66 18 120/84 97 12/29/23 16:16 73 12/29/23 16:08 68 12/29/23 15:12 51 L 18 118/59 100 12/29/23 14:00 64 18 124/68 100 Intake and Output 12/29/23 12/30/23 12/30/23 22:59 06:59 14:59 Intake Total 0 Balance 0 Intake: Oral 0 Other: Voiding Method Toilet # Voids 2 Weight 87.543 kg General appearance: The patient is alert, oriented, appears in no acute distress. HET: Head is normocephalic and atraumatic. Conjunctiva pink. Sclera anicteric. Neck: Supple without lymphadenopathy. Trachea midline. Heart: Regular. Lungs: Equal expansion, normal respiratory effort. Abdomen: Soft, mild diffuse tenderness, nondistended. Skin: No rashes. No jaundice. Extremities: Normal skin color and turgor. No pedal edema. Neurological: No focal deficits. Alert and oriented x3. Results CBC & Chem 7: 12/29/23 09:13 12/29/23 09:13 Labs: Abnormal Lab Results - Last 24 Hours (Table) 12/29/23 Range/Units 13:43 Total Bilirubin 2.8 H (0.2-1.3) mg/dL Unconjugated Bilirubin 2.3 H (0.0-1.1) mg/dL Delta Bilirubin 0.5 H (0.0-0.2) mg/dL Thrombosis Risk Factor Assmnt - Choose All That Apply Each Factor Represents 1 point: Age 41-60 years Thrombosis Risk Factor Assessment Total Risk Factor Score: 1 Thrombosis Risk Factor Assessment Level: Low Risk Assessment and Plan Assessment: 1. Abdominal pain --CT of the abdomen reveals no suspicious changes at the pancreas. -- Patient has been evaluated by GI; abdominal pain deemed likely secondary to mixed IBS with constipation and diarrhea - Last endoscopic evaluation 2014 report not available at this time. Recommend continuing with Bentyl 10 mg 4 times daily, will make it scheduled. Continue Pepcid and Protonix. No plans on any endoscopic evaluation or further workup from gastroenterology. Advance diet as tolerated and patient may be discharged with outpatient follow-up with gastroenterology. Continue Protonix and Pepcid 2. Elevated bilirubin Patient has history of elevated total bilirubin. Bilirubin fractionated with conjugated 0.0 unconjugated 2.3. Patient likely with Gilbert's syndrome. -Patient has been evaluated by GI and no further workup is recommended 3. Hypertension; metoprolol 25 mg p.o. nightly 4. Hyperlipidemia; Lipitor 40 mg daily 5. Asthma; not in exacerbation; Singulair to 10 mg nightly; ZYRTEC 10 mg nightly 6. Rheumatoid arthritis/fibromyalgia DVT prophylaxis; increase activity CODE STATUS; full code
[2023-12-31 15:16] VITALS: BP 118/79; PULSE 84; RESP 16; TEMP 98.4
== END 2023-12-31 15:43 | disposition home or self-care (01) ==
LOC: EC 08:46 → 6NMEDSUR 14:48
PROVIDERS: ADMIT Internal Medicine; ATTEND Internal Medicine
DX: K58.2 Mixed irritable bowel syndrome (principal); E80.7 Disorder of bilirubin metabolism, unspecified; K21.9 Gastro-esophageal reflux disease without esophagitis; E78.5 Hyperlipidemia, unspecified; J45.909 Unspecified asthma, uncomplicated; F32.A Depression, unspecified; F41.9 Anxiety disorder, unspecified; I10 Essential (primary) hypertension; M79.7 Fibromyalgia; M06.9 Rheumatoid arthritis, unspecified; Z79.82 Long term (current) use of aspirin; Z79.899 Other long term (current) drug therapy; Z88.6 Allergy status to analgesic agent
CPT/HCPCS: 96376 ×3; 96375 ×2; 96361; 96374; 99285; 36415; 94640 ×3; 80053; 82150; 82248; 83605; 83690; 85025; 81003; 73502; 74177; G0378 ×3; J2270; J2405 ×3; J3490; J1170 ×3; C9113 ×3; Q9967

== ENCOUNTER 2024-01-02 13:48 | Emergency (ER) | payer MEDICARE, OTHER ==
[2024-01-02 13:54] VITALS: TEMP 97.9
--- NOTE | 2024-01-02 14:42 | ED ---
General Adult HPI - General Chief complaint: Abdominal Pain Stated complaint: abd pain,fever Time Seen by Provider: 01/02/24 14:05 Source: patient, RN notes reviewed, old records reviewed Mode of arrival: ambulatory Limitations: no limitations - History of Present Illness Initial comments: 43-year-old female with multiple medical problems presenting with persistent abdominal pain nausea and vomiting. Patient was recently discharged from the hospital. She is taking Percocet and Zofran with only minimal improvement. Patient has subjective fever. She has had persistent nausea and is unable to eat. - Related Data Home Medications Medication Instructions Recorded Confirmed Montelukast Sodium [Singulair] 10 mg PO HS 08/13/18 12/29/23 Dicyclomine [Bentyl] 10 mg PO QID PRN 02/17/21 12/29/23 Famotidine [Pepcid] 20 mg PO BID 02/17/21 12/29/23 Rimegepant Sulfate [Nurtec Odt] 75 mg PO DAILY PRN 02/17/21 12/29/23 Erenumab-Aooe [Aimovig 140 mg SQ Q30D 08/04/21 12/29/23 Autoinjector] Metoprolol Tartrate [Lopressor] 25 mg PO HS 10/21/22 12/29/23 clonazePAM 2 mg PO HS 10/21/22 12/29/23 medroxyPROGESTERone [Depo-Provera] 150 mg IM Q90D 10/21/22 12/29/23 Aspirin EC [Ecotrin Low Dose] 81 mg PO DAILY 11/22/22 12/29/23 Nitroglycerin Sl Tabs [Nitrostat] 0.4 mg SUBLINGUAL Q5M PRN 11/22/22 12/29/23 Oxybutynin ER [Ditropan XL] 15 mg PO HS 11/22/22 12/29/23 diphenhydrAMINE HCL [Benadryl] 25 mg PO HS 11/22/22 12/29/23 Cholecalciferol [Vitamin D3 (25 25 mcg PO DAILY 01/25/23 12/29/23 Mcg = 1000 Iu)] Atorvastatin [Lipitor] 40 mg PO DAILY 08/05/23 12/29/23 Lisdexamfetamine Dimesylate 60 mg PO DAILY 08/05/23 12/29/23 [Vyvanse] Nystatin 100,000 Unit/ml Susp 4 ml PO QID PRN 08/05/23 12/29/23 [Mycostatin Oral Susp] Pantoprazole [Protonix] 40 mg PO DAILY 08/05/23 12/29/23 Zolpidem Tartrate [Ambien] 5 mg PO HS 08/05/23 12/29/23 Albuterol Inhaler [Ventolin Hfa 1 - 2 puff INHALATION RT-Q6H PRN 10/27/23 12/29/23 Inhaler] Cetirizine HCl [Zyrtec] 10 mg PO HS 10/27/23 12/29/23 Escitalopram [Lexapro] 10 mg PO HS 10/27/23 12/29/23 Secukinumab [Cosentyx Sensoready 300 mg SQ Q30D 10/27/23 12/29/23 (2 Pens)] tiZANidine [Zanaflex] 4 mg PO TID PRN 10/27/23 12/29/23 Albuterol Nebulized [Ventolin 2.5 mg INHALATION RT-Q6H PRN 11/11/23 12/29/23 Nebulized] Sennosides-Docusate Sodium 2 tab PO HS 11/11/23 12/29/23 [Senokot-S] oxyCODONE-APAP 10-325MG [Percocet 1 tab PO Q4HR 12/29/23 12/29/23 10-325 mg] Previous Rx's Medication Instructions Recorded Clindamycin Gel [Cleocin T 1% Gel] 1 applic TOPICAL BID #1 each 11/07/23 Clobetasol Propionate [Temovate 1 applic TOPICAL HS #1 each 11/07/23 0.05% Cream] Hydrocortisone Cream 1 applic TOPICAL HS #1 each 11/07/23 [Hydrocortisone 2.5% Cream] Magnesium Hydroxide [Milk of 2,400 mg PO DAILY PRN #30 each 11/07/23 Magnesia] metroNIDAZOLE 0.75% CREAM 1 applic TOPICAL DAILY #1 each 11/07/23 [Metrocream 0.75%] Ondansetron Odt [Zofran ODT] 4 mg PO Q8HR PRN #20 tab 12/06/23 Cephalexin [Keflex] 500 mg PO Q12HR #20 cap 01/02/24 Allergies Allergy/AdvReac Type Severity Reaction Status Date / Time ibuprofen [From Motrin] AdvReac Kidney Verified 01/02/24 13:54 Failure metoclopramide HCl AdvReac Hallucinati Verified 01/02/24 13:54 [From Reglan] ons NSAIDS (Non-Steroidal AdvReac Kidney Verified 01/02/24 13:54 Anti-Inflamma Failure pregabalin [From Lyrica] AdvReac Cough Verified 01/02/24 13:54 prochlorperazine AdvReac Hallucinati Verified 01/02/24 13:54 [From Compazine] ons Review of Systems ROS Statement: Those systems with pertinent positive or pertinent negative responses have been documented in the HPI. ROS Other: All systems not noted in ROS Statement are negative. Past Medical History Past Medical History: Asthma, Chest Pain / Angina, Fibromyalgia, GERD/Reflux, Hyperlipidemia, Liver Disease, Neurologic Disorder, Rheumatoid Arthritis (RA) Additional Past Medical History / Comment(s): PSORIATIC ARTHRITIS. POTS. Chiari malformation with [employer] shunt. Migraines. IBS. Lupus. OCCASIONAL DIZZINESS, IRREGULAR HEART RATE. HX POLYNEPHRITIS. Non-alcoholic fatty liver. History of Any Multi-Drug Resistant Organisms: None Reported Past Surgical History: Bladder Surgery, Hysterectomy, Joint Replacement, Orthopedic Surgery, Tonsillectomy, Tubal Ligation Additional Past Surgical History / Comment(s): Chiari decompression, shunt to brain, brain surgery X5, bladder suspension, bladder lift partial hysterectomy, uterus lift, bilateral carpal tunnel. Past Anesthesia/Blood Transfusion Reactions: No Reported Reaction Past Psychological History: ADD/ADHD, Anxiety, Depression Smoking Status: Never smoker Past Alcohol Use History: None Reported Past Drug Use History: None Reported - Past Family History Mother Family Medical History: No Reported History Father Family Medical History: Unable to Obtain General Exam Limitations: no limitations General appearance: alert, in no apparent distress Head exam: Present: atraumatic, normocephalic Eye exam: Present: normal appearance, PERRL ENT exam: Present: mucous membranes moist (There is well-hydrated) Respiratory exam: Present: normal lung sounds bilaterally. Absent: respiratory distress, wheezes Cardiovascular Exam: Present: regular rate, normal rhythm GI/Abdominal exam: Present: soft. Absent: distended, tenderness, guarding Neurological exam: Present: alert, oriented X3 Psychiatric exam: Present: normal affect, normal mood Skin exam: Present: warm, dry, intact. Absent: cyanosis, diaphoretic Course Vital Signs 01/02/24 13:49 Temperature 97.9 F Pulse Rate 82 Respiratory 20 Rate Blood Pressure 114/62 O2 Sat by Pulse 99 Oximetry Medical Decision Making - Medical Decision Making Was pt. sent in by a medical professional or institution (KAPIL Hodge, CAUSTIC ROOM ATTENDANT, urgent care, hospital, or alf...) When possible be specific @ -[No] Did you speak to anyone other than the patient for history (EMS, parent, family, police, friend...)? What history was obtained from this source @ -[No] Did you review nursing and triage notes (agree or disagree)? Why? @ -[I reviewed and agree with nursing and triage notes] Were old charts reviewed (outside hosp., previous admission, EMS record, old EKG, old radiological studies, urgent care reports/EKG's, alf records)? Report findings @ -[No old charts were reviewed] Differential Diagnosis (chest pain, altered mental status, abdominal pain women, abdominal pain men, vaginal bleeding, weakness, fever, dyspnea, syncope, headache, dizziness, GI bleed, back pain, seizure, CVA, palpatations, mental health, musculoskeletal)? @ -[not applicable] EKG interpreted by me (3pts min.). @ -[As above] X-rays interpreted by me (1pt min.). @ -[None done] CT interpreted by me (1pt min.). @ -[None done] U/S interpreted by me (1pt. min.). @ -[None done] What testing was considered but not performed or refused? (CT, X-rays, U/S, labs )? Why? @ -[None] What meds were considered but not given or refused? Why? @ -[None] Did you discuss the management of the patient with other professionals (professionals i.e. KAPIL Hodge, CAUSTIC ROOM ATTENDANT, lab, RT, psych nurse, social problems specialist, attorney lawyer, teacher, telecommunications officer, rn case manager)? Give summary @ -[No] Was smoking cessation discussed for >3mins.? @ -[No] Was critical care preformed (if so, how long)? @ -[No] Were there social determinants of health that impacted care today? How? (Homelessness, low income, unemployed, alcoholism, drug addiction, transportation, low edu. Level, literacy, decrease access to med. care, long term, rehab)? @ -[No] Was there de-escalation of care discussed even if they declined (Discuss DNR or withdrawal of care, Hospice)? DNR status @ -[No] What co-morbidities impacted this encounter? (DM, HTN, Smoking, COPD, CAD, Cancer, CVA, ARF, Chemo, Hep., AIDS, mental health diagnosis, sleep apnea, morbid obesity)? @ -[None] Was patient admitted / discharged? Hospital course, mention meds given and route, prescriptions, significant lab abnormalities, going to OR and other pertinent info. @ -[43-year-old female with recurrent nausea vomiting and abdominal pain. Patient well-appearing, stable vitals. No acute distress. She appears well- hydrated. No focal tenderness on exam. Patient has normal CBC, normal CMP, urinalysis does show concern for UTI and the patient will be treated. She has good follow-up with GI later this week. Return parameters discussed. Patient stable for discharge. Undiagnosed new problem with uncertain prognosis? @ -[No] Drug Therapy requiring intensive monitoring for toxicity (Heparin, Nitro, Insulin, Cardizem)? @ -[No] Were any procedures done? @ -[No] Diagnosis/symptom? @ -[Abdominal pain, nausea vomiting, UTI Acute, or Chronic, or Acute on Chronic? @ -acute Uncomplicated (without systemic symptoms) or Complicated (systemic symptoms)? @ -[default] Side effects of treatment? @ -[No] Exacerbation, Progression, or Severe Exacerbation? @ -[No] Poses a threat to life or bodily function? How? (Chest pain, USA, CT, pneumonia, PE, COPD, DKA, ARF, appy, cholecystitis, CVA, Diverticulitis, Homicidal, Suicidal, threat to staff... and all critical care pts) @ -[No] - Lab Data Result diagrams: 01/02/24 14:37 01/02/24 14:37 Lab Results 01/02/24 01/02/24 01/02/24 Range/Units 14:37 14:37 14:37 WBC 5.4 (3.8-10.6) k/uL RBC 5.17 (3.80-5.40) m/uL Hgb 13.8 (11.4-16.0) gm/dL Hct 42.7 (34.0-46.0) % MCV 82.7 (80.0-100.0) fL MCH 26.7 (25.0-35.0) pg MCHC 32.3 (31.0-37.0) g/dL RDW 13.9 (11.5-15.5) % Plt Count 268 (150-450) k/uL MPV 8.3 Neutrophils % 66 % Lymphocytes % 23 % Monocytes % 6 % Eosinophils % 2 % Basophils % 1 % Neutrophils # 3.6 (1.3-7.7) k/uL Lymphocytes # 1.3 (1.0-4.8) k/uL Monocytes # 0.3 (0-1.0) k/uL Eosinophils # 0.1 (0-0.7) k/uL Basophils # 0.0 (0-0.2) k/uL PT 10.5 (10.0-12.5) sec INR 0.9 (<1.2) APTT 22.9 (22.0-30.0) sec Sodium (137-145) mmol/L Potassium (3.5-5.1) mmol/L Chloride (98-107) mmol/L Carbon Dioxide (22-30) mmol/L Anion Gap mmol/L BUN (7-17) mg/dL Creatinine (0.52-1.04) mg/dL Est GFR (CKD-EPI)AfAm (>60 ml/min/1.73 sqM) Est GFR (CKD-EPI)NonAf (>60 ml/min/1.73 sqM) Glucose (74-99) mg/dL Calcium (8.4-10.2) mg/dL Total Bilirubin (0.2-1.3) mg/dL AST (14-36) U/L ALT (4-34) U/L Alkaline Phosphatase (38-126) U/L Total Protein (6.3-8.2) g/dL Albumin (3.5-5.0) g/dL Amylase (30-110) U/L Lipase (23-300) U/L Urine Color Colorless Urine Appearance Cloudy H (Clear) Urine pH 7.0 (5.0-8.0) Ur Specific [place] 1.012 (1.001-1.035) Urine Protein Negative (Negative) Urine Glucose (UA) Negative (Negative) Urine Ketones Negative (Negative) Urine Blood Negative (Negative) Urine Nitrite Negative (Negative) Urine Bilirubin Negative (Negative) Urine Urobilinogen <2.0 (<2.0) mg/dL Ur Leukocyte Esterase Large H (Negative) Urine RBC 4 (0-5) /hpf Urine WBC 51 H (0-5) /hpf Ur Squamous Epith Cells 4 (0-4) /hpf Urine Bacteria Occasional H (None) /hpf Urine Mucus Rare H (None) /hpf 01/02/24 Range/Units 14:37 WBC (3.8-10.6) k/uL RBC (3.80-5.40) m/uL Hgb (11.4-16.0) gm/dL Hct (34.0-46.0) % MCV (80.0-100.0) fL MCH (25.0-35.0) pg MCHC (31.0-37.0) g/dL RDW (11.5-15.5) % Plt Count (150-450) k/uL MPV Neutrophils % % Lymphocytes % % Monocytes % % Eosinophils % % Basophils % % Neutrophils # (1.3-7.7) k/uL Lymphocytes # (1.0-4.8) k/uL Monocytes # (0-1.0) k/uL Eosinophils # (0-0.7) k/uL Basophils # (0-0.2) k/uL PT (10.0-12.5) sec INR (<1.2) APTT (22.0-30.0) sec Sodium 138 (137-145) mmol/L Potassium 4.6 (3.5-5.1) mmol/L Chloride 107 (98-107) mmol/L Carbon Dioxide 24 (22-30) mmol/L Anion Gap 7 mmol/L BUN 13 (7-17) mg/dL Creatinine 0.82 (0.52-1.04) mg/dL Est GFR (CKD-EPI)AfAm >90 (>60 ml/min/1.73 sqM) Est GFR (CKD-EPI)NonAf 89 (>60 ml/min/1.73 sqM) Glucose 98 (74-99) mg/dL Calcium 9.8 (8.4-10.2) mg/dL Total Bilirubin 1.9 H (0.2-1.3) mg/dL AST 26 (14-36) U/L ALT 16 (4-34) U/L Alkaline Phosphatase 99 (38-126) U/L Total Protein 7.1 (6.3-8.2) g/dL Albumin 4.4 (3.5-5.0) g/dL Amylase 61 (30-110) U/L Lipase 130 (23-300) U/L Urine Color Urine Appearance (Clear) Urine pH (5.0-8.0) Ur Specific [place] (1.001-1.035) Urine Protein (Negative) Urine Glucose (UA) (Negative) Urine Ketones (Negative) Urine Blood (Negative) Urine Nitrite (Negative) Urine Bilirubin (Negative) Urine Urobilinogen (<2.0) mg/dL Ur Leukocyte Esterase (Negative) Urine RBC (0-5) /hpf Urine WBC (0-5) /hpf Ur Squamous Epith Cells (0-4) /hpf Urine Bacteria (None) /hpf Urine Mucus (None) /hpf Disposition Clinical Impression: UTI (urinary tract infection), Abdominal pain Disposition: HOME SELF-CARE Condition: Fair Instructions (If sedation given, give patient instructions): Abdominal Pain (ED) Prescriptions: Cephalexin [Keflex] 500 mg PO Q12HR #20 cap Is patient prescribed a controlled substance at d/c from ED?: No Referrals: Santosh Mccord DO [Primary Care Provider] - 1-2 days Concha Gregory MD [STAFF PHYSICIAN] - 1-2 days Time of Disposition: 16:03
[2024-01-02] MEDS: ONDANSETRON 4 MG/2 ML VIAL IVP STA (14:46)
[2024-01-02] MEDS: MORPHINE SULFATE 4 MG/ML SYRINGE IVP STA (14:47)
[2024-01-02] MEDS: SODIUM CHLORIDE 0.9% 1,000 ML IV STA (14:48)
[2024-01-02 15:22] LABS: Basophils % (A) 1 %; Eosinophils # (A) 0.1 k/uL (0-0.7); Eosinophils % (A) 2 %; HCT 42.7 % (34.0-46.0); HGB 13.8 gm/dL (11.4-16.0); Lymphocytes # (A) 1.3 k/uL (1.0-4.8); Lymphocytes % (A) 23 %; MCH 26.7 pg (25.0-35.0); MCHC 32.3 g/dL (31.0-37.0); MCV 82.7 fL (80.0-100.0); Mean Platelet Volume 8.3; Monocytes # (A) 0.3 k/uL (0-1.0); Monocytes % (A) 6 %; Neutrophils # (A) 3.6 k/uL (1.3-7.7); Neutrophils % (A) 66 %; Platelet Count 268 k/uL (150-450); RBC 5.17 m/uL (3.80-5.40); RDW 13.9 % (11.5-15.5); WBC 5.4 k/uL (3.8-10.6)
[2024-01-02 15:30] LABS: INR 0.9 (<1.2); Partial Thromboplastin Time 22.9 sec (22.0-30.0); Prothrombin Time 10.5 sec (10.0-12.5)
[2024-01-02 15:39] LABS: ALT 16 U/L (4-34); AST 26 U/L (14-36); African American GFR (CKD) >90 (>60 ml/min/1.73 sqM); Albumin 4.4 g/dL (3.5-5.0); Alkaline Phosphatase 99 U/L (38-126); Amylase 61 U/L (30-110); Anion Gap 7 mmol/L; Blood Urea Nitrogen 13 mg/dL (7-17); Calcium 9.8 mg/dL (8.4-10.2); Carbon Dioxide 24 mmol/L (22-30); Chloride 107 mmol/L (98-107); Glucose 98 mg/dL (74-99); Lipase 130 U/L (23-300); Non-African American GFR(CKD) 89 (>60 ml/min/1.73 sqM); Potassium 4.6 mmol/L (3.5-5.1); Sodium 138 mmol/L (137-145); Total Bilirubin 1.9 mg/dL (0.2-1.3); Total Protein 7.1 g/dL (6.3-8.2)
[2024-01-02 15:48] LABS: Appearance,Urine Cloudy (Clear); Bacteria,Urine Occasional /hpf; Bilirubin,Urine Negative (Negative); Blood,Urine Negative (Negative); Color,Urine Colorless; Glucose,Urine (UA) Negative (Negative); Ketones,Urine Negative (Negative); Leukocyte Esterase,Urine Large (Negative); Mucus,Urine Rare /hpf; Nitrite,Urine Negative (Negative); Protein,Urine Negative (Negative); RBC,Urine 4 /hpf (0-5); Specific Gravity,Urine 1.012 (1.001-1.035); Squamous Epithelial Cell,Urine 4 /hpf (0-4); Urobilinogen,Urine <2.0 mg/dL (<2.0); WBC,Urine 51 /hpf (0-5)
[2024-01-02 16:48] VITALS: BP 112/78; PULSE 84; RESP 18
== END 2024-01-02 16:48 | disposition home or self-care (01) ==
LOC: EC 13:48
DX: N39.0 Urinary tract infection, site not specified (principal); R11.2 Nausea with vomiting, unspecified; Z88.6 Allergy status to analgesic agent; Z88.8 Allergy status to other drugs, medicaments and biological substances
CPT/HCPCS: 36415; 80053; 82150; 83690; 85025; 85610; 85730; 81001; 99284; 96374; 96375; 96361; J2270; J2405

== ENCOUNTER → 2024-01-26 | Outpatient (CLI) | payer MEDICARE, OTHER ==
--- NOTE | 2024-01-26 14:11 | NM ---
EXAMINATION TYPE: NM gastric emptying static DATE OF EXAM: 01/26/2024 COMPARISON: NONE CLINICAL INDICATION: Female, 44 years old with history of K31.84 GASTROPARESIS; Following administration of 2.0 mCi Tc 99m Sulfur Colloid with 4 ounces of eggs, 2 pieces of toast wi th butter & jelly, 8 ounces of water, projection images of the abdomen were obtained 10 minutes post ingestion. Patient Emptying Values 1 Hour 41 % (70-10%) 2 Hours 68 % (> 40%) 3 Hours 83 % (> 70%) 4 Hours 100 % (> 90%) Gastroesophagel reflux: None IMPRESSION: No scintigraphic evidence for gastroparesis. No gastroesophageal reflux seen.
== END | disposition home or self-care (01) ==
LOC: RADNMMAIN 06:47
PROVIDERS: ATTEND Internal Medicine Gastroenterology
DX: K31.84 Gastroparesis (principal)
CPT/HCPCS: 78264; A9541

== ENCOUNTER → 2024-01-26 | Outpatient (CLI) | payer MEDICARE, OTHER ==
[2024-01-26 15:11] LABS: Basophils # (A) 0.05 X 10*3/uL (0.00-0.10); Basophils % (A) 0.9 %; Eosinophils # (A) 0.14 X 10*3/uL (0.04-0.35); Eosinophils % (A) 2.6 %; HCT 39.9 % (37.2-46.3); HGB 13.4 g/dL (12.0-15.0); Lymphocytes # (A) 2.39 X 10*3/uL (0.90-5.00); Lymphocytes % (A) 44.3 %; MCH 27.6 pg (27.0-32.0); MCHC 33.6 g/dL (32.0-37.0); MCV 82.1 FL (80.0-97.0); Mean Platelet Volume 10.5 FL (9.5-12.2); Monocytes % (A) 7.4 %; NRBC Per 100 WBC 0 X 10*3/uL (0.00-0.01); Neutrophils # (A) 2.41 X 10*3/uL (1.80-7.70); Neutrophils % (A) 44.6 %; Platelet Count 279 X 10*3/uL (140-440); RBC 4.86 X 10*6/uL (4.10-5.20); RDW 13.7 % (11.5-14.5)
[2024-01-26 15:34] LABS: ALT 14 U/L (8-44); AST 22 U/L (13-35)
== END | disposition home or self-care (01) ==
LOC: LABWHC1 09:58
PROVIDERS: ATTEND Dermatology MOHS-Micrographic Surgery
DX: L40.0 Psoriasis vulgaris (principal); Z79.899 Other long term (current) drug therapy
CPT/HCPCS: 36415; 82565; 84450; 84460; 85025; 86480

== ENCOUNTER 2024-02-10 12:54 | Inpatient (IN) | payer MEDICARE, OTHER ==
--- NOTE | 2024-02-10 13:27 | ED ---
Abdominal Pain HPI - General Source: patient, RN notes reviewed Mode of arrival: ambulatory Limitations: no limitations - History of Present Illness MD Complaint: abdominal pain <Ml Wagner - Last Filed: 02/10/24 13:24> - General Source: RN notes reviewed <Kaitlynn Mccartney - Last Filed: 02/10/24 19:04> - General Chief Complaint: Abdominal Pain Stated Complaint: Abdominal Pain Time Seen by Provider: 02/10/24 13:25 - History of Present Illness Initial Comments: Quick Note: This is a 44-year-old female who presents to the emergency department for fevers, back pain, abdominal pain, and weakness. Patient was discharged from [facility] a couple of days ago for pyelonephritis. States that they discharged her because they did not have all of the medications available that they had wanted to put her on. She was discharged home with a prescription for cefuroxime, but states that she continue s to get worse in terms of her pain and fevers. (Ml Wagner) 44-year-old female presenting to the ED for pyelonephritis. States she was discharged from [facility] 2 days ago for right pyelonephritis with sepsis. She states she was admitted for 5 days and on IV antibiotics and fluids. She states she has been taking oral cefuroxime however she is having right-sided back pain radiating to the right abdomen with severe suprapubic pain and dysuria. States she is vomiting and unable to tolerate orals. States she has having subjective fevers at home as well. States she was receiving IV Rocephin in the hospital, states the urine culture returned susceptible to Rocephin. She has a history of multiple kidney infections that she has been hospitalized for. (Kaitlynn Mccartney) - Related Data Home Medications Medication Instructions Recorded Confirmed Montelukast Sodium [Singulair] 10 mg PO HS 08/13/18 02/10/24 Dicyclomine [Bentyl] 10 mg PO QID PRN 02/17/21 02/10/24 Famotidine [Pepcid] 20 mg PO BID 02/17/21 02/10/24 Rimegepant Sulfate [Nurtec Odt] 75 mg PO DAILY PRN 02/17/21 02/10/24 Erenumab-Aooe [Aimovig 140 mg SQ Q28D 08/04/21 02/10/24 Autoinjector] Metoprolol Tartrate [Lopressor] 25 mg PO HS 10/21/22 02/10/24 clonazePAM 2 mg PO HS 10/21/22 02/10/24 medroxyPROGESTERone [Depo-Provera] 150 mg IM Q84D 10/21/22 02/10/24 Aspirin EC [Ecotrin Low Dose] 81 mg PO DAILY 11/22/22 02/10/24 Nitroglycerin Sl Tabs [Nitrostat] 0.4 mg SUBLINGUAL Q5M PRN 11/22/22 02/10/24 Oxybutynin ER [Ditropan XL] 15 mg PO HS 11/22/22 02/10/24 diphenhydrAMINE HCL [Benadryl] 25 mg PO HS 11/22/22 02/10/24 Cholecalciferol [Vitamin D3 (25 25 mcg PO DAILY 01/25/23 02/10/24 Mcg = 1000 Iu)] Atorvastatin [Lipitor] 40 mg PO DAILY 08/05/23 02/10/24 Lisdexamfetamine Dimesylate 60 mg PO DAILY 08/05/23 02/10/24 [Vyvanse] Nystatin 100,000 Unit/ml Susp 4 ml PO QID PRN 08/05/23 02/10/24 [Mycostatin Oral Susp] Pantoprazole [Protonix] 40 mg PO DAILY 08/05/23 02/10/24 Zolpidem Tartrate [Ambien] 5 mg PO HS 08/05/23 02/10/24 Albuterol Inhaler [Ventolin Hfa 1 - 2 puff INHALATION RT-Q6H PRN 10/27/23 02/10/24 Inhaler] Cetirizine HCl [Zyrtec] 10 mg PO HS 10/27/23 02/10/24 Escitalopram [Lexapro] 10 mg PO HS 10/27/23 02/10/24 Secukinumab [Cosentyx Sensoready 300 mg SQ Q28D 10/27/23 02/10/24 (2 Pens)] tiZANidine [Zanaflex] 4 mg PO TID PRN 10/27/23 02/10/24 Albuterol Nebulized [Ventolin 2.5 mg INHALATION RT-Q6H PRN 11/11/23 02/10/24 Nebulized] Sennosides-Docusate Sodium 2 tab PO HS 11/11/23 02/10/24 [Senokot-S] oxyCODONE-APAP 10-325MG [Percocet 1 tab PO Q6H 12/29/23 02/10/24 10-325 mg] Isosorbide Mononitrate ER [Imdur] 30 mg PO DIRECTED 02/10/24 02/10/24 Morphine Sulfate ER [Ms Contin] 30 mg PO HS 02/10/24 02/10/24 cefUROXime axetiL [Ceftin] 500 mg PO BID 02/10/24 02/10/24 Previous Rx's Medication Instructions Recorded Clindamycin Gel [Cleocin T 1% Gel] 1 applic TOPICAL BID #1 each 11/07/23 Clobetasol Propionate [Temovate 1 applic TOPICAL HS #1 each 11/07/23 0.05% Cream] Hydrocortisone Cream 1 applic TOPICAL HS #1 each 11/07/23 [Hydrocortisone 2.5% Cream] Magnesium Hydroxide [Milk of 2,400 mg PO DAILY PRN #30 each 11/07/23 Magnesia] metroNIDAZOLE 0.75% CREAM 1 applic TOPICAL DAILY #1 each 11/07/23 [Metrocream 0.75%] Ondansetron Odt [Zofran ODT] 4 mg PO Q8HR PRN #20 tab 12/06/23 Allergies Allergy/AdvReac Type Severity Reaction Status Date / Time ibuprofen [From Motrin] AdvReac Kidney Verified 02/10/24 18:30 Failure metoclopramide HCl AdvReac Hallucinati Verified 02/10/24 18:30 [From Reglan] ons NSAIDS (Non-Steroidal AdvReac Kidney Verified 02/10/24 18:30 Anti-Inflamma Failure pregabalin [From Lyrica] AdvReac Cough Verified 02/10/24 18:30 prochlorperazine AdvReac Hallucinati Verified 02/10/24 18:30 [From Compazine] ons Review of Systems ROS Other: All systems not noted in ROS Statement are negative. <Ml Wagner - Last Filed: 02/10/24 13:24> ROS Other: All systems not noted in ROS Statement are negative. <Kaitlynn Mccartney - Last Filed: 02/10/24 19:04> ROS Statement: Those systems with pertinent positive or pertinent negative responses have been documented in the HPI. Past Medical History Past Medical History: Asthma, Chest Pain / Angina, Fibromyalgia, GERD/Reflux, Hyperlipidemia, Liver Disease, Neurologic Disorder, Rheumatoid Arthritis (RA) Additional Past Medical History / Comment(s): PSORIATIC ARTHRITIS. POTS. Chiari malformation with VOCAL TEACHER shunt. Migraines. IBS. Lupus. OCCASIONAL DIZZINESS, IRREGULAR HEART RATE. HX POLYNEPHRITIS. Non-alcoholic fatty liver. History of Any Multi-Drug Resistant Organisms: None Reported Past Surgical History: Bladder Surgery, Hysterectomy, Joint Replacement, Orthopedic Surgery, Tonsillectomy, Tubal Ligation Additional Past Surgical History / Comment(s): Chiari decompression, shunt to brain, brain surgery X5, bladder suspension, bladder lift partial hysterectomy, uterus lift, bilateral carpal tunnel. Past Anesthesia/Blood Transfusion Reactions: No Reported Reaction Past Psychological History: ADD/ADHD, Anxiety, Depression Smoking Status: Never smoker Past Alcohol Use History: None Reported Past Drug Use History: None Reported - Past Family History Mother Family Medical History: No Reported History Father Family Medical History: Unable to Obtain <GriskiaraMl - Last Filed: 02/10/24 13:24> General Exam <Ml Wagner - Last Filed: 02/10/24 13:24> General appearance: alert, in no apparent distress Head exam: Present: atraumatic, normocephalic, normal inspection Eye exam: Present: normal appearance, PERRL, EOMI. Absent: scleral icterus, conjunctival injection, periorbital swelling GI/Abdominal exam: Present: soft, normal bowel sounds. Absent: distended, tenderness, guarding, rebound, rigid Back exam: Present: CVA tenderness (R). Absent: CVA tenderness (L) Neurological exam: Present: alert, oriented X3 Psychiatric exam: Present: normal affect, normal mood Skin exam: Present: warm, dry, intact, normal color. Absent: rash <Kaitlynn Mccartney - Last Filed: 02/10/24 19:04> - General Exam Comments Initial Comments: Visual Physical Exam Vital signs reviewed General: Well-appearing, nontoxic, no acute distress. Head: Normocephalic, atraumatic Eyes: PERRLA, EOMI ENT: Airway patent Chest: Nonlabored breathing Skin: No visual rash, normal skin tone Neuro: Alert and oriented 3 Musculoskeletal: No gross abnormalities (Ml Wagner) Course Vital Signs 02/10/24 02/10/24 13:38 17:59 Temperature 98.2 F Pulse Rate 93 86 Respiratory 16 18 Rate Blood Pressure 134/83 121/91 O2 Sat by Pulse 99 100 Oximetry Medical Decision Making <Ml Wagner - Last Filed: 02/10/24 13:24> - Lab Data Result diagrams: 02/10/24 13:22 02/10/24 13:22 <Kaitlynn Mccartney - Last Filed: 02/10/24 19:04> - Medical Decision Making I performed the QuickNote portion of this chart. Signed Ml Wagner PA-C. (Ml Wagner) Was pt. sent in by a medical professional or institution ([facility], [employer], urgent care, hospital, or jail...) When possible be specific @ -No Did you speak to anyone other than the patient for history (EMS, parent, family, police, friend...)? What history was obtained from this source @ -No Did you review nursing and triage notes (agree or disagree)? Why? @ -I reviewed and agree with nursing and triage notes Were old charts reviewed (outside hosp., previous admission, EMS record, old EKG, old radiological studies, urgent care reports/EKG's, jail records)? Report findings @ -No old charts were reviewed Differential Diagnosis (chest pain, altered mental status, abdominal pain women, abdominal pain men, vaginal bleeding, weakness, fever, dyspnea, syncope, headache, dizziness, GI bleed, back pain, seizure, CVA, palpatations, mental health, musculoskeletal)? @ -Differential Abdominal Pain Women: Appendicitis, Cholecystitis, diverticulosis, ischemic bowel, pancreatitis, hepatitis, UTI, gastroenteritis, AAA, incarcerated hernia, bowel obstruction, constipation, inflammatory bowel, hepatitis, peptic ulcer disease, splenic infarction, perforated viscus, vulvitis, ovarian torsion, PID, kidney stone, placenta abruption, this is not meant to be an all-inclusive list EKG interpreted by me (3pts min.). @ -None X-rays interpreted by me (1pt min.). @ -None done CT interpreted by me (1pt min.). @ -None done U/S interpreted by me (1pt. min.). @ -None done What testing was considered but not performed or refused? (CT, X-rays, U/S, labs)? Why? @ -Imaging performed due to no new symptoms and lab work unremarkable What meds were considered but not given or refused? Why? @ -None Did you discuss the management of the patient with other professionals (professionals i.e. , PA, [employer], lab, RT, psych nurse, social media marketing specialist, recreation attendant, teacher, hospital chief financial officer, family independence case manager)? Give summary @ -I spoke with Dr. Osorio who accepts admission at this time for right pyelonephritis, failed outpatient treatment. Requesting blood cultures, IV fluids, IV Zosyn and consultation to infectious disease services Was smoking cessation discussed for >3mins.? @ -No Was critical care preformed (if so, how long)? @ -No Were there social determinants of health that impacted care today? How? (Homelessness, low income, unemployed, alcoholism, drug addiction, transpo rtation, low edu. Level, literacy, decrease access to med. care, fci, rehab)? @ -No Was there de-escalation of care discussed even if they declined (Discuss DNR or withdrawal of care, Hospice)? DNR status @ -No What co-morbidities impacted this encounter? (DM, HTN, Smoking, COPD, CAD, Cancer, CVA, ARF, Chemo, Hep., AIDS, mental health diagnosis, sleep apnea, morbid obesity)? @ -None Was patient admitted / discharged? Hospital course, mention meds given and route, prescriptions, significant lab abnormalities, going to OR and other pertinent info. @ -Patient was admitted. Patient was seen and evaluated for right flank pain that is worsening. Patient was admitted to the care on for right pyelonephritis with sepsis and discharged 2 days ago on oral cefuroxime. However, states right flank pain is worsening and she has been vomiting and unable to tolerate orals. Patient is afebrile and nontachycardic upon examination. Patient is in no acute distress. There is positive right CVA tenderness. Lab work including CBC, CMP, lactic is unremarkable. Urine is unremarkable. I spoke with Dr. Osorio who accepts admission at this time for right pyelonephritis. He is requesting blood cultures, IV fluids, IV Zosyn and consultation to infectious disease services at this time. Patient is agreeable to plan. Case was discussed with my ED attending Dr. Campoverde. Patient discharged stable condition. Undiagnosed new problem with uncertain prognosis? @ -No Drug Therapy requiring intensive monitoring for toxicity (Heparin, Nitro, Insulin, Cardizem)? @ -No Were any procedures done? @ -No Diagnosis/symptom? @ -Right pyelonephritis Acute, or Chronic, or Acute on Chronic? @ -Acute Uncomplicated (without systemic symptoms) or Complicated (systemic symptoms)? @ -Complicated Side effects of treatment? @ -No Exacerbation, Progression, or Severe Exacerbation? @ -No Poses a threat to life or bodily function? How? (Chest pain, USA, MS, pneumonia, PE, COPD, DKA, ARF, appy, cholecystitis, CVA, Diverticulitis, Homicidal, Suicidal, threat to staff... and all critical care pts) @ -Possibly (Kaitlynn Mccartney) - Lab Data Lab Results 02/10/24 02/10/24 02/10/24 Range/Units 13:22 13:22 13:22 WBC 4.7 (3.8-10.6) k/uL RBC 5.69 H (3.80-5.40) m/uL Hgb 15.2 (11.4-16.0) gm/dL Hct 45.5 (34.0-46.0) % MCV 79.8 L (80.0-100.0) fL MCH 26.6 (25.0-35.0) pg MCHC 33.3 (31.0-37.0) g/dL RDW 14.1 (11.5-15.5) % Plt Count 351 (150-450) k/uL MPV 7.3 Neutrophils % 49 % Lymphocytes % 37 % Monocytes % 7 % Eosinophils % 4 % Basophils % 1 % Neutrophils # 2.3 (1.3-7.7) k/uL Lymphocytes # 1.8 (1.0-4.8) k/uL Monocytes # 0.3 (0-1.0) k/uL Eosinophils # 0.2 (0-0.7) k/uL Basophils # 0.0 (0-0.2) k/uL Sodium 136 L (137-145) mmol/L Potassium 4.2 (3.5-5.1) mmol/L Chloride 106 (98-107) mmol/L Carbon Dioxide 21 L (22-30) mmol/L Anion Gap 9 mmol/L BUN 17 (7-17) mg/dL Creatinine 0.79 (0.52-1.04) mg/dL Est GFR (CKD-EPI)AfAm >90 (>60 ml/min/1.73 sqM) Est GFR (CKD-EPI)NonAf >90 (>60 ml/min/1.73 sqM) Glucose 104 H (74-99) mg/dL Plasma Lactic Acid Paulino (0.7-2.0) mmol/L Calcium 9.7 (8.4-10.2) mg/dL Total Bilirubin 1.4 H (0.2-1.3) mg/dL AST 35 (14-36) U/L ALT 25 (4-34) U/L Alkaline Phosphatase 93 (38-126) U/L Total Protein 7.4 (6.3-8.2) g/dL Albumin 4.5 (3.5-5.0) g/dL Urine Color Yellow Urine Appearance Cloudy H (Clear) Urine pH 5.5 (5.0-8.0) Ur Specific [place] 1.027 (1.001-1.035) Urine Protein Trace H (Negative) Urine Glucose (UA) Negative (Negative) Urine Ketones Negative (Negative) Urine Blood Negative (Negative) Urine Nitrite Negative (Negative) Urine Bilirubin Negative (Negative) Urine Urobilinogen <2.0 (<2.0) mg/dL Ur Leukocyte Esterase Negative (Negative) Urine RBC <1 (0-5) /hpf Urine WBC 1 (0-5) /hpf Ur Squamous Epith Cells 11 H (0-4) /hpf Urine Bacteria Occasional H (None) /hpf Urine Mucus Occasional H (None) /hpf 02/10/24 Range/Units 13:22 WBC (3.8-10.6) k/uL RBC (3.80-5.40) m/uL Hgb (11.4-16.0) gm/dL Hct (34.0-46.0) % MCV (80.0-100.0) fL MCH (25.0-35.0) pg MCHC (31.0-37.0) g/dL RDW (11.5-15.5) % Plt Count (150-450) k/uL MPV Neutrophils % % Lymphocytes % % Monocytes % % Eosinophils % % Basophils % % Neutrophils # (1.3-7.7) k/uL Lymphocytes # (1.0-4.8) k/uL Monocytes # (0-1.0) k/uL Eosinophils # (0-0.7) k/uL Basophils # (0-0.2) k/uL Sodium (137-145) mmol/L Potassium (3.5-5.1) mmol/L Chloride (98-107) mmol/L Carbon Dioxide (22-30) mmol/L Anion Gap mmol/L BUN (7-17) mg/dL Creatinine (0.52-1.04) mg/dL Est GFR (CKD-EPI)AfAm (>60 ml/min/1.73 sqM) Est GFR (CKD-EPI)NonAf (>60 ml/min/1.73 sqM) Glucose (74-99) mg/dL Plasma Lactic Acid Paulino 1.1 (0.7-2.0) mmol/L Calcium (8.4-10.2) mg/dL Total Bilirubin (0.2-1.3) mg/dL AST (14-36) U/L ALT (4-34) U/L Alkaline Phosphatase (38-126) U/L Total Protein (6.3-8.2) g/dL Albumin (3.5-5.0) g/dL Urine Color Urine Appearance (Clear) Urine pH (5.0-8.0) Ur Specific [place] (1.001-1.035) Urine Protein (Negative) Urine Glucose (UA) (Negative) Urine Ketones (Negative) Urine Blood (Negative) Urine Nitrite (Negative) Urine Bilirubin (Negative) Urine Urobilinogen (<2.0) mg/dL Ur Leukocyte Esterase (Negative) Urine RBC (0-5) /hpf Urine WBC (0-5) /hpf Ur Squamous Epith Cells (0-4) /hpf Urine Bacteria (None) /hpf Urine Mucus (None) /hpf Disposition <Ml Wagner - Last Filed: 02/10/24 13:24> Time of Disposition: 19:04 <Kaitlynn Mccartney - Last Filed: 02/10/24 19:04> Clinical Impression: Pyelonephritis of right kidney Disposition: ADMITTED IP TO THIS HOSP Referrals: Demarcus Osorio MD [Primary Care Provider] - 1-2 days
[2024-02-10 14:05] LABS: Basophils % (A) 1 %; Eosinophils # (A) 0.2 k/uL (0-0.7); Eosinophils % (A) 4 %; HCT 45.5 % (34.0-46.0); HGB 15.2 gm/dL (11.4-16.0); Lymphocytes # (A) 1.8 k/uL (1.0-4.8); Lymphocytes % (A) 37 %; MCH 26.6 pg (25.0-35.0); MCHC 33.3 g/dL (31.0-37.0); MCV 79.8 fL (80.0-100.0); Mean Platelet Volume 7.3; Monocytes # (A) 0.3 k/uL (0-1.0); Monocytes % (A) 7 %; Neutrophils # (A) 2.3 k/uL (1.3-7.7); Neutrophils % (A) 49 %; Platelet Count 351 k/uL (150-450); RBC 5.69 m/uL (3.80-5.40); RDW 14.1 % (11.5-15.5); WBC 4.7 k/uL (3.8-10.6)
[2024-02-10 14:16] LABS: Appearance,Urine Cloudy (Clear); Bacteria,Urine Occasional /hpf; Bilirubin,Urine Negative (Negative); Blood,Urine Negative (Negative); Color,Urine Yellow; Glucose,Urine (UA) Negative (Negative); Ketones,Urine Negative (Negative); Leukocyte Esterase,Urine Negative (Negative); Mucus,Urine Occasional /hpf; Nitrite,Urine Negative (Negative); PH, Urine 5.5 (5.0-8.0); Protein,Urine Trace (Negative); RBC,Urine <1 /hpf (0-5); Specific Gravity,Urine 1.027 (1.001-1.035); Squamous Epithelial Cell,Urine 11 /hpf (0-4); Urobilinogen,Urine <2.0 mg/dL (<2.0); WBC,Urine 1 /hpf (0-5)
[2024-02-10 14:26] LABS: ALT 25 U/L (4-34); AST 35 U/L (14-36); African American GFR (CKD) >90 (>60 ml/min/1.73 sqM); Albumin 4.5 g/dL (3.5-5.0); Alkaline Phosphatase 93 U/L (38-126); Anion Gap 9 mmol/L; Blood Urea Nitrogen 17 mg/dL (7-17); Calcium 9.7 mg/dL (8.4-10.2); Carbon Dioxide 21 mmol/L (22-30); Chloride 106 mmol/L (98-107); Glucose 104 mg/dL (74-99); Non-African American GFR(CKD) >90 (>60 ml/min/1.73 sqM); Potassium 4.2 mmol/L (3.5-5.1); Sodium 136 mmol/L (137-145); Total Bilirubin 1.4 mg/dL (0.2-1.3); Total Protein 7.4 g/dL (6.3-8.2)
[2024-02-10] MEDS ORDERED: HYDROmorphone 0.5 MG/0.5 ML SYRINGE IVP PRN (18:56)
[2024-02-10] MEDS ORDERED: NALOXONE 0.4 MG/ML 1 ML VIAL IV PRN (18:56)
[2024-02-10] MEDS: SODIUM CHLORIDE 0.9% 1,000 ML IV SCH (19:36)
[2024-02-10] MEDS: ONDANSETRON 4 MG/2 ML VIAL IVP PRN (19:38)
[2024-02-10] MEDS: PIPERACILLIN-TAZOBACTAM 3.375 GM in SODIUM CHLORIDE 0.9% 100 ML IVPB STA (19:40)
[2024-02-10] MEDS: MORPHINE SULFATE 4 MG/ML SYRINGE IV PRN (22:28)
[2024-02-11] MEDS ORDERED: NON FORMULARY DRUG (Rimegepant Sulfate [Nurtec Odt] 75 MG Tab.Rapdis) PO PRN (00:47)
[2024-02-11] MEDS ORDERED: NITROGLYCERIN SL TABS 0.4 MG TAB SUBLINGUAL PRN (00:47)
[2024-02-11] MEDS ORDERED: ALBUTEROL NEBULIZED 2.5 MG/3 ML INHALATION PRN (00:47)
[2024-02-11] MEDS: oxyCODONE-APAP 10-325MG 1 EACH TAB PO SCH (02:13)
[2024-02-11] MEDS: PIPERACILLIN-TAZOBACTAM 3.375 GM in SODIUM CHLORIDE 0.9% 100 ML IVPB SCH (04:12)
[2024-02-11] MEDS ORDERED: ONDANSETRON ODT 4 MG TAB PO PRN (08:00)
[2024-02-11] MEDS ORDERED: NYSTATIN 100,000 UNIT/ML SUSP 500,000 UNIT/5 ML CUP PO PRN (09:00)
[2024-02-11] MEDS ORDERED: DICYCLOMINE 10 MG CAP PO PRN (09:00)
[2024-02-11] MEDS ORDERED: MAGNESIUM HYDROXIDE 2,400 MG/30 ML CUP PO PRN (09:00)
[2024-02-11] MEDS ORDERED: tiZANidine 4 MG TAB PO PRN (09:00)
[2024-02-11] MEDS: ENOXAPARIN 40 MG/0.4 ML SYRINGE SQ SCH (09:11)
[2024-02-11] MEDS: ASPIRIN 81 MG PO SCH (09:12)
[2024-02-11] MEDS: ATORVASTATIN 40 MG TAB PO SCH (09:12)
[2024-02-11] MEDS: CHOLECALCIFEROL 25 MCG (1000 IU) TABLET PO SCH (09:12)
[2024-02-11] MEDS: PANTOPRAZOLE 40 MG TABLET PO SCH (09:12)
[2024-02-11] MEDS: FAMOTIDINE 20 MG TAB PO SCH (09:12)
[2024-02-11] MEDS: ISOSORBIDE MONONITRATE ER 30 MG TAB.ER.24H PO SCH (09:12)
[2024-02-11] MEDS: NON FORMULARY DRUG (Lisdexamfetamine Dimesylate [Vyvanse] 60 MG Capsule) PO SCH (09:13)
[2024-02-11] MEDS: NON FORMULARY DRUG (Clindamycin Gel 1 APPLIC Gel) TOPICAL SCH (09:14)
[2024-02-11 11:37] LABS: Basophils # (A) 0.03 X 10*3/uL (0.00-0.10); Basophils % (A) 0.8 %; Eosinophils % (A) 2.6 %; HCT 39.5 % (37.2-46.3); HGB 12.8 g/dL (12.0-15.0); Lymphocytes # (A) 1.83 X 10*3/uL (0.90-5.00); Lymphocytes % (A) 47.3 %; MCH 26.6 pg (27.0-32.0); MCHC 32.4 g/dL (32.0-37.0); Mean Platelet Volume 10.8 FL (9.5-12.2); Monocytes # (A) 0.52 X 10*3/uL (0.20-1.00); Monocytes % (A) 13.4 %; NRBC Per 100 WBC 0 X 10*3/uL (0.00-0.01); Neutrophils # (A) 1.38 X 10*3/uL (1.80-7.70); Neutrophils % (A) 35.6 %; Platelet Count 288 X 10*3/uL (140-440); RBC 4.82 X 10*6/uL (4.10-5.20); RDW 13.5 % (11.5-14.5); WBC 3.87 X 10*3/uL (4.50-10.00)
[2024-02-11 11:41] LABS: ALT 21 U/L (8-44); AST 26 U/L (13-35); Albumin 4.1 g/dL (3.8-4.9); Albumin/Globulin Ratio 1.95 Ratio (1.60-3.17); Alkaline Phosphatase 98 U/L (41-126); Blood Urea Nitrogen 16.2 mg/dL (9.0-27.0); Calcium 9.3 mg/dL (8.7-10.3); Carbon Dioxide 23.7 mmol/L (21.6-31.8); Chloride 103 mmol/L (96-109); Globulin 2.1 g/dL (1.6-3.3); Glucose 97 mg/dL (70-110); Potassium 4.4 mmol/L (3.5-5.5); Sodium 138 mmol/L (135-145); Total Bilirubin 0.8 mg/dL (0.3-1.2); Total Protein 6.2 g/dL (6.2-8.2)
--- NOTE | 2024-02-11 13:57 | P.HPIM ---
History of Present Illness H&P Date: 02/11/24 HISTORY OF PRESENT ILLNESS Mony Tineo is a 44-year-old female who is a new patient to my office. She has a previous medical history significant for Chiari malformation status post decompression and multiple surgeries x 5 with a NEWS PRODUCER shunt done by Dr. Desire Zaragoza in July 2017 at [facility]. She also has a history of migraine headaches, SLE, seizure disorder, rheumatoid arthritis, psoriatic arthritis (currently on Cosentyx since 2000), mild persistent asthma, ADD, insomnia, anxiety and depressive disorder, irritable bowel syndrome, Da- Danlos syndrome, chronic pain syndrome. Patient was seen at [facility] in December 2003 for what appears to be a Klebsiella pneumonia UTI, she was treated with Keflex and sent home. Last Tuesday she developed a significant amount of abdominal pain associated with nausea and vomiting, fever and chills, urinary frequency and urgency and was admitted at [facility] for UTI/sepsis. She was started on IV antibiotics in the form of ceftriaxone 1 g IV piggyback every [address] hours[address] She had a [address] scan at that time which was negative for any acute abnormality. Patient's urine culture showed E. coli at that time. Fernando fernandez was discharged from [facility] on February 07, 2024 on oral Ceftin 500 mg orally twice every day for 10 days. Patient presented to [facility] yesterday afternoon for worsening abdominal pain, right-sided back pain, and severe suprapubic pain and dysuria. Patient was admitted once again for pyelonephritis and given piperacillintazobactam 3.375 g IV piggyback every 8 hours. 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 Patient lying in bed at this time, in no acute distress. Patient does complain of lower abdominal pain and lower back pain, as well as bladder spasms with voiding. Patient doing well on IV Zofran and current pain regimen. Continue home meds. Will admit inpatient with likely 2 overnights. Patient is a full code. We will follow closely. REVIEW OF SYSTEMS Constitutional: Positive fever, no chills, no night sweats. No weight change. No weakness, fatigue or lethargy. No daytime sleepiness. EENT: No headache. No blurred vision or double vision, no loss of vision. No loss of Hearing, no ringing in the ears, no dizziness. No nasal drainage or congestion. No epistaxis. No sore throat. Lungs: No shortness of breath, cough, no sputum production. No wheezing. Cardiovascular: No chest pain, no lower extremity edema. No palpitations. No paroxysmal nocturnal dyspnea. No orthopnea. No lightheadedness or dizziness. No syncopal episodes. Abdominal: Positive abdominal pain. Positive nausea, denies vomiting. No diarrhea. No constipation. No bloody or tarry stools. No loss of appetite. Genitourinary: Positive dysuria, increased frequency, urgency. Positive suprapubic pain. No urinary retention. Musculoskeletal: No myalgias. No muscle weakness, no gait dysfunction, no frequent falls. No back pain. No neck pain. Integumentary: No wounds, no lesions. No rash or pruritus. No unusual bruising. No change in hair or nails. Neurologic: No aphasia. No facial droop. No change in mentation. No head injury. No headache. No paralysis. No paresthesia. Psychiatric: Positive depression. Positive anxiety. No mood swings. Endocrine: No abnormal blood sugars. No weight change. No excessive sweating or thirst. No cold intolerance. MEDICAL HISTORY Da-Danlos syndrome Chiari malformation status post multiple surgical intervention with a NEWS PRODUCER shunt Irritable bowel syndrome Migraine headaches Psoriatic arthritis Mild persistent asthma Anxiety and depressive disorder Pancreatitis ADD Overactive bladder Interstitial cystitis Chronic pain syndrome Hypertension Mixed hyperlipidemia SURGICAL HISTORY Left total hip arthroplasty November 01, 2003 Tonsillectomy and adenoidectomy EGD and colonoscopy 2014 Bladder suspension Vaginal hernia repair 2022 SOCIAL HISTORY Denies smoking. Denies smokeless tobacco. Denies alcohol use. Denies illicit drug use. Denies marijuana use. FAMILY HISTORY Mother is a 7-year-old with no health issues. Father at the age of 69 from coronary artery disease/[place]. Patient has 2 brothers without major medical problems. Patient has 1 sister with SLE. Patient has 2 sons and 3 daughters, 4 of them with Chiari malformation and 1 with epilepsy. PHYSICAL EXAMINATION Gen: This is a 44-year-old female in no apparent acute distress. HEENT: Head is atraumatic, normocephalic. Pupils equal, round. Sclerae is anicteric. NECK: Supple. No JVD. No lymphadenopathy. No thyromegaly. LUNGS: Clear to auscultation. No wheezes or rhonchi. No intercostal retractions. HEART: Regular rate and rhythm. No murmur. ABDOMEN: Soft. Bowel sounds are present. No masses. Right lower quadrant and left lower quadrant severe tenderness. EXTREMITIES: No pedal edema. No calf tenderness. NEUROLOGICAL: Patient is awake, alert and oriented x3. Cranial nerves 2 through 12 are grossly intact. ASSESSMENT AND PLAN 1. Pyelonephritis. Urine culture pending. Continue piperacillintazobactam 3.375 mg IV piggyback every 8 hours. Continue Zofran 4 mg IV push every 8 hours as needed for nausea. 2. History of Chiari malformation status post decompressive surgery, multiple surgical intervention, NEWS PRODUCER shunt placement 2019. Stable. 3. History of migraine headaches. Patient has been on Aimovig 140 mg subcu every 30 days, we will monitor patient's symptoms closely. Continue Nurtec ODT 75 mg once daily as needed. 4. History of SLE. Currently inactive. 5. Mild persistent asthma. Continue patient on albuterol as needed, and Advair twice a day. 6. Rheumatoid arthritis and psoriatic arthritis. Continue patient on Cosentyx. 7. Da-Danlos syndrome. Stable. 8. Irritable bowel syndrome. Continue with current treatment plan. 9. Anxiety and depressive disorder. Continue escitalopram 10 mg once daily at bedtime and Klonopin 2 mg orally at bedtime. 10. Chronic pain syndrome. Continue morphine ER 30 mg orally at bedtime. C ontinue Percocet 10-325 mg every 6 hours scheduled. Patient may also have morphine 4 mg IV push every 4 hours for breakthrough pain. 11. Attention deficit disorder. Continue on Vyvanse 60 mg orally once every day. 12. History of recurrent UTI with interstitial cystitis, has been seen by urology. She did have a bladder suspension and vaginal hernia repair. 13. Essential hypertension. Continue metoprolol tartrate 25 mg at bedtime. Continue isosorbide mononitrate 30 mg once daily. 14. Mixed hyperlipidemia. Continue atorvastatin 40 mg once daily. 15. Insomnia. Continue zolpidem 5 mg orally at bedtime. 16. Allergic rhinitis. Continue patient on fluticasone nasal spray, levocetir izine 5 mg orally once every day. 17. DVT prophylaxis. Continue patient on Lovenox 40 mg subcutaneously every 24 hours. 18. GI prophylaxis. Continue patient on Protonix 40 mg orally once every day. 19. Admit to inpatient. Estimated length of stay 2 overnights. 20. Patient is a full code. Impression and plan of care have been directed as dictated by the signing physician. Fiorella Hernandez, nurse practitioner acting as scribe for signing physician. Past Medical History Past Medical History: Asthma, Chest Pain / Angina, Fibromyalgia, GERD/Reflux, Hyperlipidemia, Liver Disease, Neurologic Disorder, Rheumatoid Arthritis (RA) Additional Past Medical History / Comment(s): PSORIATIC ARTHRITIS. POTS. Chiari malformation with NEWS PRODUCER shunt. Migraines. IBS. Lupus. OCCASIONAL DIZZINESS, IRREGULAR HEART RATE. HX POLYNEPHRITIS. Non-alcoholic fatty liver. History of Any Multi-Drug Resistant Organisms: None Reported Past Surgical History: Bladder Surgery, Hysterectomy, Joint Replacement, Orthopedic Surgery, Tonsillectomy, Tubal Ligation Additional Past Surgical History / Comment(s): Chiari decompression, shunt to brain, brain surgery X5, bladder suspension, bladder lift partial hysterectomy, uterus lift, bilateral carpal tunnel. Past Anesthesia/Blood Transfusion Reactions: No Reported Reaction Past Psychological History: ADD/ADHD, Anxiety, Depression Additional Psychological History / Comment(s): ADD. Smoking Status: Never smoker Past Alcohol Use History: None Reported Past Drug Use History: None Reported - Past Family History Mother Family Medical History: No Reported History Father Family Medical History: Unable to Obtain Medications and Allergies Home Medications Medication Instructions Recorded Confirmed Type Montelukast Sodium [Singulair] 10 mg PO HS 08/13/18 02/10/24 History Dicyclomine [Bentyl] 10 mg PO QID PRN 02/17/21 02/10/24 History Famotidine [Pepcid] 20 mg PO BID 02/17/21 02/10/24 History Rimegepant Sulfate [Nurtec Odt] 75 mg PO DAILY PRN 02/17/21 02/10/24 History Erenumab-Aooe [Aimovig 140 mg SQ Q28D 08/04/21 02/10/24 History Autoinjector] Metoprolol Tartrate [Lopressor] 25 mg PO HS 10/21/22 02/10/24 History clonazePAM 2 mg PO HS 10/21/22 02/10/24 History medroxyPROGESTERone [Depo-Provera] 150 mg IM Q84D 10/21/22 02/10/24 History Aspirin EC [Ecotrin Low Dose] 81 mg PO DAILY 11/22/22 02/10/24 History Nitroglycerin Sl Tabs [Nitrostat] 0.4 mg SUBLINGUAL Q5M PRN 11/22/22 02/10/24 History Oxybutynin ER [Ditropan XL] 15 mg PO HS 11/22/22 02/10/24 History diphenhydrAMINE HCL [Benadryl] 25 mg PO HS 11/22/22 02/10/24 History Cholecalciferol [Vitamin D3 (25 25 mcg PO DAILY 01/25/23 02/10/24 History Mcg = 1000 Iu)] Atorvastatin [Lipitor] 40 mg PO DAILY 08/05/23 02/10/24 History Lisdexamfetamine Dimesylate 60 mg PO DAILY 08/05/23 02/10/24 History [Vyvanse] Nystatin 100,000 Unit/ml Susp 4 ml PO QID PRN 08/05/23 02/10/24 History [Mycostatin Oral Susp] Pantoprazole [Protonix] 40 mg PO DAILY 08/05/23 02/10/24 History Zolpidem Tartrate [Ambien] 5 mg PO HS 08/05/23 02/10/24 History Albuterol Inhaler [Ventolin Hfa 1 - 2 puff INHALATION RT-Q6H PRN 10/27/23 02/10/24 History Inhaler] Cetirizine HCl [Zyrtec] 10 mg PO HS 10/27/23 02/10/24 History Escitalopram [Lexapro] 10 mg PO HS 10/27/23 02/10/24 History Secukinumab [Cosentyx Sensoready 300 mg SQ Q28D 10/27/23 02/10/24 History (2 Pens)] tiZANidine [Zanaflex] 4 mg PO TID PRN 10/27/23 02/10/24 History Clindamycin Gel [Cleocin T 1% Gel] 1 applic TOPICAL BID #1 each 11/07/23 02/10/24 Rx Clobetasol Propionate [Temovate 1 applic TOPICAL HS #1 each 11/07/23 02/10/24 Rx 0.05% Cream] Hydrocortisone Cream 1 applic TOPICAL HS #1 each 11/07/23 02/10/24 Rx [Hydrocortisone 2.5% Cream] Magnesium Hydroxide [Milk of 2,400 mg PO DAILY PRN #30 each 11/07/23 02/10/24 Rx Magnesia] metroNIDAZOLE 0.75% CREAM 1 applic TOPICAL DAILY #1 each 11/07/23 02/10/24 Rx [Metrocream 0.75%] Albuterol Nebulized [Ventolin 2.5 mg INHALATION RT-Q6H PRN 11/11/23 02/10/24 History Nebulized] Sennosides-Docusate Sodium 2 tab PO HS 11/11/23 02/10/24 History [Senokot-S] Ondansetron Odt [Zofran ODT] 4 mg PO Q8HR PRN #20 tab 12/06/23 02/10/24 Rx oxyCODONE-APAP 10-325MG [Percocet 1 tab PO Q6H 12/29/23 02/10/24 History 10-325 mg] Isosorbide Mononitrate ER [Imdur] 30 mg PO DIRECTED 02/10/24 02/10/24 History Morphine Sulfate ER [Ms Contin] 30 mg PO HS 02/10/24 02/10/24 History cefUROXime axetiL [Ceftin] 500 mg PO BID 02/10/24 02/10/24 History Allergies Allergy/AdvReac Type Severity Reaction Status Date / Time ibuprofen [From Motrin] AdvReac Kidney Verified 02/10/24 18:30 Failure metoclopramide HCl AdvReac Hallucinati Verified 02/10/24 18:30 [From Reglan] ons NSAIDS (Non-Steroidal AdvReac Kidney Verified 02/10/24 18:30 Anti-Inflamma Failure pregabalin [From Lyrica] AdvReac Cough Verified 02/10/24 18:30 prochlorperazine AdvReac Hallucinati Verified 02/10/24 18:30 [From Compazine] ons Physical Exam Vitals: Vital Signs Temp Pulse Pulse Resp BP BP Pulse Ox 02/11/24 08:00 98.4 F 78 17 106/73 99 02/11/24 02:00 98.3 F 88 16 113/79 97 02/10/24 21:34 73 18 121/85 99 02/10/24 17:59 86 18 121/91 100 02/10/24 13:38 98.2 F 93 16 134/83 99 Intake and Output 02/10/24 02/11/24 02/11/24 22:59 06:59 14:59 Intake Total 240 Balance 240 Intake: Oral 240 Other: Voiding Method Toilet # Voids 2 Weight 84.822 kg Results CBC & Chem 7: 02/11/24 03:24 02/11/24 03:24 Labs: Abnormal Lab Results - Last 24 Hours (Table) 02/10/24 02/10/24 02/10/24 Range/Units 13:22 13:22 13:22 RBC 5.69 H (3.80-5.40) m/uL MCV 79.8 L (80.0-100.0) fL Sodium 136 L (137-145) mmol/L Carbon Dioxide 21 L (22-30) mmol/L Glucose 104 H (74-99) mg/dL Total Bilirubin 1.4 H (0.2-1.3) mg/dL Urine Appearance Cloudy H (Clear) Urine Protein Trace H (Negative) Ur Squamous Epith Cells 11 H (0-4) /hpf Urine Bacteria Occasional H (None) /hpf Urine Mucus Occasional H (None) /hpf
[2024-02-11] MEDS: CLOBETASOL PROP 0.05% CR 15GM TOPICAL SCH (20:03)
[2024-02-11] MEDS: MORPHINE SULFATE ER 30 MG TABLET PO SCH (20:05)
[2024-02-11] MEDS: MONTELUKAST 10 MG TAB PO SCH (21:36)
[2024-02-11] MEDS: OXYBUTYNIN 15 MG TAB.ER.24 PO SCH (21:36)
[2024-02-11] MEDS: LORATADINE 10 MG TAB PO SCH (21:36)
[2024-02-11] MEDS: clonazePAM 1 MG TAB PO SCH (21:36)
[2024-02-11] MEDS: diphenhydrAMINE 25 MG CAP PO SCH (21:36)
[2024-02-11] MEDS: METOPROLOL TARTRATE 25 MG TAB PO SCH (21:36)
[2024-02-11] MEDS: ESCITALOPRAM 10 MG TAB PO SCH (21:37)
[2024-02-11] MEDS: ZINC OXIDE PASTE (Z-GUARD) 1 APPLIC TOPICAL PRN (21:47)
[2024-02-11] MEDS: SENNOSIDES-DOCUSATE SODIUM 1 EACH TAB PO SCH (21:53)
[2024-02-11] MEDS: ZOLPIDEM 5 MG TAB PO SCH (21:53)
[2024-02-11] MEDS: HYDROCORTISONE 1% CREAM 30 GM TUBE TOPICAL SCH (21:58)
[2024-02-12 09:39] LABS: Basophils # (A) 0.04 X 10*3/uL (0.00-0.10); Basophils % (A) 0.9 %; Eosinophils # (A) 0.18 X 10*3/uL (0.04-0.35); Eosinophils % (A) 4.2 %; HCT 35.3 % (37.2-46.3); HGB 11.1 g/dL (12.0-15.0); Lymphocytes # (A) 1.72 X 10*3/uL (0.90-5.00); Lymphocytes % (A) 40.5 %; MCH 26.4 pg (27.0-32.0); MCHC 31.4 g/dL (32.0-37.0); MCV 83.8 FL (80.0-97.0); Mean Platelet Volume 10.6 FL (9.5-12.2); Monocytes # (A) 0.43 X 10*3/uL (0.20-1.00); Monocytes % (A) 10.1 %; NRBC Per 100 WBC 0 X 10*3/uL (0.00-0.01); Neutrophils # (A) 1.87 X 10*3/uL (1.80-7.70); Neutrophils % (A) 44.1 %; Platelet Count 242 X 10*3/uL (140-440); RBC 4.21 X 10*6/uL (4.10-5.20); RDW 13.4 % (11.5-14.5); WBC 4.25 X 10*3/uL (4.50-10.00)
[2024-02-12 09:44] LABS: ALT 18 U/L (8-44); AST 23 U/L (13-35); Albumin/Globulin Ratio 2.11 Ratio (1.60-3.17); Alkaline Phosphatase 87 U/L (41-126); Blood Urea Nitrogen 17.7 mg/dL (9.0-27.0); Calcium 8.8 mg/dL (8.7-10.3); Carbon Dioxide 23.6 mmol/L (21.6-31.8); Chloride 109 mmol/L (96-109); Globulin 1.9 g/dL (1.6-3.3); Glucose 111 mg/dL (70-110); Potassium 4.1 mmol/L (3.5-5.5); Sodium 141 mmol/L (135-145); Total Bilirubin 0.5 mg/dL (0.3-1.2); Total Protein 5.9 g/dL (6.2-8.2)
--- NOTE | 2024-02-12 09:51 | P.CONS ---
History of Present Illness - Reason for Consult Consult date: 02/11/24 Right pyelonephritis Requesting physician: Kaitlynn Mccartney - Chief Complaint Flank pain burning of urine x days - History of Present Illness Patient is a 44-year-old female with a past medical history significant for hyperlipidemia reflux fibromyalgia rheumatoid arthritis apparently was recently admitted at [facility] for evaluation of back pain urinary burning frequency stable pubic pain with the patient has been treated for pyelonephritis apparently the patient was on IV Rocephin and did have a CT abdominal pelvis that as reported by the patient it was negative patient was discharged on Ceftin however the patient did have worsening of her s ymptoms for the patient present to the hospital patient complaining of pain mostly to the right flank radiating to the right abdominal area with severe suprapubic pain and dysuria patient complaining of nausea and vomiting unable to keep anything down and did have a fever of 101 F at home on presentation the hospital no fever was reported patient was not tachycardic hypotensive or hypoxic patient did have a normal white count with no left shift creatinine has been normal electrolytes are normal liver isms are normal urine has been negative blood and urine culture has been. She currently pending patient has been started on Zosyn infectious he was consulted for further management of antibiotic therapy concerning for right-sided pyelonephritis Review of Systems Positive point and negatives has been mentioned in the HPI, complete review of systems was performed and all other systems are negative Past Medical History Past Medical History: Asthma, Chest Pain / Angina, Fibromyalgia, GERD/Reflux, Hyperlipidemia, Liver Disease, Neurologic Disorder, Rheumatoid Arthritis (RA) Additional Past Medical History / Comment(s): PSORIATIC ARTHRITIS. POTS. 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 Migraines. IBS. Lupus. OCCASIONAL DIZZINESS, IRREGULAR HEART RATE. HX POLYNEPHRITIS. Non-alcoholic fatty liver. History of Any Multi-Drug Resistant Organisms: None Reported Past Surgical History: Bladder Surgery, Hysterectomy, Joint Replacement, Orthopedic Surgery, Tonsillectomy, Tubal Ligation Additional Past Surgical History / Comment(s): Chiari decompression, shunt to brain, brain surgery X5, bladder suspension, bladder lift partial hysterectomy, uterus lift, bilateral carpal tunnel. Past Anesthesia/Blood Transfusion Reactions: No Reported Reaction Past Psychological History: ADD/ADHD, Anxiety, Depression Additional Psychological History / Comment(s): ADD. Smoking Status: Never smoker Past Alcohol Use History: None Reported Past Drug Use History: None Reported - Past Family History Mother Family Medical History: No Reported History Father Family Medical History: Unable to Obtain Medications and Allergies Home Medications Medication Instructions Recorded Confirmed Type Montelukast Sodium [Singulair] 10 mg PO HS 08/13/18 02/10/24 History Dicyclomine [Bentyl] 10 mg PO QID PRN 02/17/21 02/10/24 History Famotidine [Pepcid] 20 mg PO BID 02/17/21 02/10/24 History Rimegepant Sulfate [Nurtec Odt] 75 mg PO DAILY PRN 02/17/21 02/10/24 History Erenumab-Aooe [Aimovig 140 mg SQ Q28D 08/04/21 02/10/24 History Autoinjector] Metoprolol Tartrate [Lopressor] 25 mg PO HS 10/21/22 02/10/24 History clonazePAM 2 mg PO HS 10/21/22 02/10/24 History medroxyPROGESTERone [Depo-Provera] 150 mg IM Q84D 10/21/22 02/10/24 History Aspirin EC [Ecotrin Low Dose] 81 mg PO DAILY 11/22/22 02/10/24 History Nitroglycerin Sl Tabs [Nitrostat] 0.4 mg SUBLINGUAL Q5M PRN 11/22/22 02/10/24 History Oxybutynin ER [Ditropan XL] 15 mg PO HS 11/22/22 02/10/24 History diphenhydrAMINE HCL [Benadryl] 25 mg PO HS 11/22/22 02/10/24 History Cholecalciferol [Vitamin D3 (25 25 mcg PO DAILY 01/25/23 02/10/24 History Mcg = 1000 Iu)] Atorvastatin [Lipitor] 40 mg PO DAILY 08/05/23 02/10/24 History Lisdexamfetamine Dimesylate 60 mg PO DAILY 08/05/23 02/10/24 History [Vyvanse] Nystatin 100,000 Unit/ml Susp 4 ml PO QID PRN 08/05/23 02/10/24 History [Mycostatin Oral Susp] Pantoprazole [Protonix] 40 mg PO DAILY 08/05/23 02/10/24 History Zolpidem Tartrate [Ambien] 5 mg PO HS 08/05/23 02/10/24 History Albuterol Inhaler [Ventolin Hfa 1 - 2 puff INHALATION RT-Q6H PRN 10/27/23 02/10/24 History Inhaler] Cetirizine HCl [Zyrtec] 10 mg PO HS 10/27/23 02/10/24 History Escitalopram [Lexapro] 10 mg PO HS 10/27/23 02/10/24 History Secukinumab [Cosentyx Sensoready 300 mg SQ Q28D 10/27/23 02/10/24 History (2 Pens)] tiZANidine [Zanaflex] 4 mg PO TID PRN 10/27/23 02/10/24 History Clindamycin Gel [Cleocin T 1% Gel] 1 applic TOPICAL BID #1 each 11/07/23 02/10/24 Rx Clobetasol Propionate [Temovate 1 applic TOPICAL HS #1 each 11/07/23 02/10/24 Rx 0.05% Cream] Hydrocortisone Cream 1 applic TOPICAL HS #1 each 11/07/23 02/10/24 Rx [Hydrocortisone 2.5% Cream] Magnesium Hydroxide [Milk of 2,400 mg PO DAILY PRN #30 each 11/07/23 02/10/24 Rx Magnesia] metroNIDAZOLE 0.75% CREAM 1 applic TOPICAL DAILY #1 each 11/07/23 02/10/24 Rx [Metrocream 0.75%] Albuterol Nebulized [Ventolin 2.5 mg INHALATION RT-Q6H PRN 11/11/23 02/10/24 History Nebulized] Sennosides-Docusate Sodium 2 tab PO HS 11/11/23 02/10/24 History [Senokot-S] Ondansetron Odt [Zofran ODT] 4 mg PO Q8HR PRN #20 tab 12/06/23 02/10/24 Rx oxyCODONE-APAP 10-325MG [Percocet 1 tab PO Q6H 12/29/23 02/10/24 History 10-325 mg] Isosorbide Mononitrate ER [Imdur] 30 mg PO DIRECTED 02/10/24 02/10/24 History Morphine Sulfate ER [Ms Contin] 30 mg PO HS 02/10/24 02/10/24 History cefUROXime axetiL [Ceftin] 500 mg PO BID 02/10/24 02/10/24 History Allergies Allergy/AdvReac Type Severity Reaction Status Date / Time ibuprofen [From Motrin] AdvReac Kidney Verified 02/10/24 18:30 Failure metoclopramide HCl AdvReac Hallucinati Verified 02/10/24 18:30 [From Reglan] ons NSAIDS (Non-Steroidal AdvReac Kidney Verified 02/10/24 18:30 Anti-Inflamma Failure pregabalin [From Lyrica] AdvReac Cough Verified 02/10/24 18:30 prochlorperazine AdvReac Hallucinati Verified 02/10/24 18:30 [From Compazine] ons Physical Exam Vitals: Vital Signs Temp Pulse Pulse Resp BP BP Pulse Ox 02/11/24 08:00 98.4 F 78 17 106/73 99 02/11/24 02:00 98.3 F 88 16 113/79 97 02/10/24 21:34 73 18 121/85 99 02/10/24 17:59 86 18 121/91 100 02/10/24 13:38 98.2 F 93 16 134/83 99 Intake and Output 02/10/24 02/11/24 02/11/24 22:59 06:59 14:59 Intake Total 240 Balance 240 Intake: Oral 240 Other: Voiding Method Toilet # Voids 2 Weight 84.822 kg GENERAL DESCRIPTION: Middle-aged female lying in bed, no distress. No tachypnea or accessory muscle of respiration use. HEENT: Shows Pallor , no scleral icterus. Oral mucous membrane is dry. No pharyngeal erythema or thrush NECK: Trachea central, no thyromegaly. LUNGS: Unlabored breathing. Clear to auscultation anteriorly. No wheeze or crackle. HEART: S1, S2, regular rate and rhythm. No loud murmur ABDOMEN: Soft, no tenderness , guarding or rigidity, no organomegaly EXTREMITIES: No edema of feet. SKIN: No rash, no masses palpable. NEUROLOGICAL: The patient is awake, alert, oriented x3, mood and affect normal. Results CBC & Chem 7: 02/12/24 04:04 02/12/24 04:04 Labs: Abnormal Lab Results - Last 24 Hours (Table) 02/10/24 02/10/24 02/10/24 Range/Units 13:22 13:22 13:22 WBC (4.50-10.00) X 10*3/uL RBC 5.69 H (3.80-5.40) m/uL MCV 79.8 L (80.0-100.0) fL MCH (27.0-32.0) pg Neutrophils # (1.80-7.70) X 10*3/uL Sodium 136 L (137-145) mmol/L Carbon Dioxide 21 L (22-30) mmol/L Glucose 104 H (74-99) mg/dL Total Bilirubin 1.4 H (0.2-1.3) mg/dL Urine Appearance Cloudy H (Clear) Urine Protein Trace H (Negative) Ur Squamous Epith Cells 11 H (0-4) /hpf Urine Bacteria Occasional H (None) /hpf Urine Mucus Occasional H (None) /hpf 02/11/24 Range/Units 03:24 WBC 3.87 L (4.50-10.00) X 10*3/uL RBC (3.80-5.40) m/uL MCV (80.0-100.0) fL MCH 26.6 L (27.0-32.0) pg Neutrophils # 1.38 L (1.80-7.70) X 10*3/uL Sodium (137-145) mmol/L Carbon Dioxide (22-30) mmol/L Glucose (74-99) mg/dL Total Bilirubin (0.2-1.3) mg/dL Urine Appearance (Clear) Urine Protein (Negative) Ur Squamous Epith Cells (0-4) /hpf Urine Bacteria (None) /hpf Urine Mucus (None) /hpf Assessment and Plan (1) Pyelonephritis of right kidney Current Visit: Yes Status: Acute Code(s): N12 - TUBULO-INTERSTITIAL NEPH RITIS, NOT SPCF ACUTE OR CHRONIC SNOMED Code(s): 28567089 Plan: 1patient presented to hospital with right flank pain radiating to the right lower abdominal area especially suprapubic with associated burning and nausea concerning for possible renal colic/stone however UA is negative did not show any RBC or WBC that will make either stone or pyelonephritis less likely, patient has been advised CT for better definition of underlying abnormality however the patient mention she just have a CT done at [facility] that was reported negative. 2we will check inflammatory markers. 3May continue Zosyn however the cultures are negative will recommend to discontinue antibiotics. We will follow on clinical condition and cultures to further adjust medication if needed Thank you for this consultation we will follow the patient along with you Dictation was produced using [employer] dictation software. please excuse any grammatical, word or spelling errors. Time with Patient: Greater than 30
[2024-02-12] MEDS: ACETAMINOPHEN TAB 325 MG TAB PO PRN (11:02)
--- NOTE | 2024-02-12 14:55 | P.PN ---
Subjective Progress Note Date: 02/12/24 Principal diagnosis: Reason for follow-up is flank pain and question of pyelonephritis Patient is a 44-year-old female with a past medical history significant for hyperlipidemia reflux fibromyalgia rheumatoid arthritis apparently was recently admitted at [facility] for evaluation of back pain urinary burning frequency stable pubic pain with the patient has been treated for pyelonephritis apparently seen abdominal pelvis was negative now presented to this facility concerning for worsening symptoms. On today's evaluation that is 02/12/2024, the patient continues to be afebrile, the patient is on room air and breathing comfortably, the Pt denies having any chest pain or cough, the patient mention the flank pain has improved as well as urinary symptoms and is doing better than yesterday. Patient white count is 4.25, creatinine is 1.0 cultures currently pending Objective - Vital Signs Vital signs: Vital Signs Temp 98.3 F 02/12/24 08:00 Pulse 70 02/12/24 08:00 Resp 18 02/12/24 08:00 BP 101/73 02/12/24 08:00 Pulse Ox 98 02/12/24 08:00 FiO2 Intake & Output 02/11/24 02/12/24 02/12/24 18:59 06:59 18:59 Intake Total 1180 Balance 1180 Intake: Intake, IV Titration 100 Amount Piperacillin-Tazobactam 3 100 .375 gm In Sodium Chloride 0.9% 100 ml @ 25 mls/hr IVPB Q8H [facility] Rx#: [id number] Oral 1080 Other: Voiding Method Toilet Toilet Toilet # Voids 3 2 - Exam GENERAL DESCRIPTION: Middle-aged female lying in bed in no distress RESPIRATORY SYSTEM: Unlabored breathing , decreased breath sounds at bases HEART: S1 S2 regular rate and rhythm , ABDOMEN: Soft , no tenderness EXTREMITIES: No edema feet - Labs CBC & Chem 7: 02/12/24 04:04 02/12/24 04:04 Labs: Abnormal Lab Results - Last 24 Hours (Table) 02/12/24 02/12/24 Range/Units 04:04 04:04 WBC 4.25 L (4.50-10.00) X 10*3/uL Hgb 11.1 L (12.0-15.0) g/dL Hct 35.3 L (37.2-46.3) % MCH 26.4 L (27.0-32.0) pg MCHC 31.4 L (32.0-37.0) g/dL Glucose 111 H (70-110) mg/dL Total Protein 5.9 L (6.2-8.2) g/dL Microbiology - Last 24 Hours (Table) 02/11/24 02:33 Urine Culture - Final Urine,Clean Catch 02/10/24 19:22 Blood Culture - Preliminary Blood 02/10/24 19:08 Blood Culture - Preliminary Blood Assessment and Plan (1) Pyelonephritis of right kidney Current Visit: Yes Status: Acute Code(s): N12 - TUBULO-INTERSTITIAL NEPHRITIS, NOT SPCF ACUTE OR CHRONIC SNOMED Code(s): 80987445 Plan: 1patient presented to hospital with right flank pain radiating to the right lower abdominal area especially suprapubic with associated burning and nausea concerning for possible renal colic/stone however UA is negative did not show any RBC or WBC that will make either stone or pyelonephritis less likely, patient has been advised CT for better definition of underlying abnormality however the patient mention she just have a CT done at [facility] at that was reported negative. 2patient did have a normal CRP and there will go against any infection or pyelonephritis however the patient mention feeling better on Zosyn if cultures negative will recommend to discontinue Dictation was produced using [employer] dictation software. please excuse any gram matical, word or spelling errors. Time with Patient: Less than 30
[2024-02-12] MEDS: FLUCONAZOLE 150 MG TAB PO STA (15:07)
--- NOTE | 2024-02-12 15:48 | P.PN ---
Subjective Progress Note Date: 02/12/24 HISTORY OF PRESENT ILLNESS Mony Tineo is a 44-year-old female who is a new patient to my office. She has a previous medical history significant for Chiari malformation status post decompression and multiple surgeries x 5 with a [employer] shunt done by Dr. Desire Zaragoza in July 2017 at [facility]. She also has a history of migraine headaches, SLE, seizure disorder, rheumatoid arthritis, psoriatic arthritis (currently on Cosentyx since 2000), mild persistent asthma, ADD, insomnia, anxiety and depressive disorder, irritable bowel syndrome, Da- Danlos syndrome, chronic pain syndrome. Patient was seen at [facility] in December 2003 for what appears to be a Klebsiella pneumonia UTI, she was treated with Keflex and sent home. Last Tuesday she developed a significant amount of abdominal pain associated with nausea and vomiting, fever and chills, urinary frequency and urgency and was admitted at [facility] for UTI/sepsis. She was started on IV antibiotics in the form of ceftriaxone 1 g IV piggyback every [address] She had a [address] scan at that time which was negative for any acute abnormality. Patient's urine culture showed E. coli at that time. Patient was discharged from [facility] on February 07, 2024 on oral Ceftin 500 mg orally twice every day for 10 days. Patient presented to [facility] yesterday afternoon for worsening abdominal pain, right-sided back pain, and severe suprapubic pain and dysuria. Patient was admitted once again for pyelonephritis and given piperacillintazobactam 3.375 g IV piggyback every 8 hours. Patient states she did not strip picker the oral antibiotic until , therefore was only able to to take 2 doses prior to presenting to the emergency department. Patient lying in bed at this time, in no acute distress. Patient does complain of lower abdominal pain and lower back pain, as well as bladder spasms with voiding. Patient doing well on IV Zofran and current pain regimen. Continue home meds. Will admit inpatient with likely 2 overnights. Patient is a full code. We will follow closely. 02/11: Patient lying in bed at this time in no acute distress. ID saw patient, sed rate was negative therefore not likely infection or pyelonephritis. Urine cultures are still pending however if negative we will stop the antibiotic. Continue current medication regimen, as well as pain meds and antiemetics. We will repeat labs tomorrow morning and follow closely. REVIEW OF SYSTEMS Constitutional: Positive fever, no chills, no night sweats. No weight change. No weakness, fatigue or lethargy. No daytime sleepiness. EENT: No headache. No blurred vision or double vision, no loss of vision. No loss of Hearing, no ringing in the ears, no dizziness. No nasal drainage or congestion. No epistaxis. No sore throat. Lungs: No shortness of breath, cough, no sputum production. No wheezing. Cardiovascular: No chest pain, no lower extremity edema. No palpitations. No paroxysmal nocturnal dyspnea. No orthopnea. No lightheadedness or dizziness. No syncopal episodes. Abdominal: Positive abdominal pain. Positive nausea, denies vomiting. No diarrhea. No constipation. No bloody or tarry stools. No loss of appetite. Genitourinary: Positive dysuria, increased frequency, urgency. Positive suprapubic pain. No urinary retention. Musculoskeletal: No myalgias. No muscle weakness, no gait dysfunction, no frequent falls. No back pain. No neck pain. Integumentary: No wounds, no lesions. No rash or pruritus. No unusual bruising. No change in hair or nails. Neurologic: No aphasia. No facial droop. No change in mentation. No head injury. No headache. No paralysis. No paresthesia. Psychiatric: Positive depression. Positive anxiety. No mood swings. Endocrine: No abnormal blood sugars. No weight change. No excessive sweating or thirst. No cold intolerance. PHYSICAL EXAMINATION Gen: This is a 44-year-old female in no apparent acute distress. HEENT: Head is atraumatic, normocephalic. Pupils equal, round. Sclerae is anicteric. NECK: Supple. No JVD. No lymphadenopathy. No thyromegaly. LUNGS: Clear to auscultation. No wheezes or rhonchi. No intercostal retractions. HEART: Regular rate and rhythm. No murmur. ABDOMEN: Soft. Bowel sounds are present. No masses. Right lower quadrant and left lower quadrant severe tenderness. EXTREMITIES: No pedal edema. No calf tenderness. NEUROLOGICAL: Patient is awake, alert and oriented x3. Cranial nerves 2 through 12 are grossly intact. ASSESSMENT AND PLAN 1. Pyelonephritis. Urine culture pending. Continue piperacillintazobactam 3.375 mg IV piggyback every 8 hours. Continue Zofran 4 mg IV push every 8 hours as needed for nausea. 2. History of Chiari malformation status post decompressive surgery, multiple surgical intervention, [employer] shunt placement 2019. Stable. 3. History of migraine headaches. Patient has been on Aimovig 140 mg subcu every 30 days, we will monitor patient's symptoms closely. Continue Nurtec ODT 75 mg once daily as needed. 4. History of SLE. Currently inactive. 5. Mild persistent asthma. Continue patient on albuterol as needed, and Advair twice a day. 6. Rheumatoid arthritis and psoriatic arthritis. Continue patient on Cosentyx. 7. Da-Danlos syndrome. Stable. 8. Irritable bowel syndrome. Continue with current treatment plan. 9. Anxiety and depressive disorder. Continue escitalopram 10 mg once daily at bedtime and Klonopin 2 mg orally at bedtime. 10. Chronic pain syndrome. Continue morphine ER 30 mg orally at bedtime. C ontinue Percocet 10-325 mg every 6 hours scheduled. Patient may also have morphine 4 mg IV push every 4 hours for breakthrough pain. 11. Attention deficit disorder. Continue on Vyvanse 60 mg orally once every day. 12. History of recurrent UTI with interstitial cystitis, has been seen by urology. She did have a bladder suspension and vaginal hernia repair. 13. Essential hypertension. Continue metoprolol tartrate 25 mg at bedtime. Continue isosorbide mononitrate 30 mg once daily. 14. Mixed hyperlipidemia. Continue atorvastatin 40 mg once daily. 15. Insomnia. Continue zolpidem 5 mg orally at bedtime. 16. Allergic rhinitis. Continue patient on fluticasone nasal spray, levocetir izine 5 mg orally once every day. 17. DVT prophylaxis. Continue patient on Lovenox 40 mg subcutaneously every 24 hours. 18. GI prophylaxis. Continue patient on Protonix 40 mg orally once every day. 19. Admit to inpatient. Estimated length of stay 2 overnights. 20. Patient is a full code. Impression and plan of care have been directed as dictated by the signing physician. Fiorella Hernandez, nurse practitioner acting as scribe for signing physician. Objective - Vital Signs Vital signs: Vital Signs Temp 97.8 F 02/12/24 13:45 Pulse 66 02/12/24 13:45 Resp 19 02/12/24 13:45 BP 121/76 02/12/24 13:45 Pulse Ox 99 02/12/24 13:45 FiO2 Intake & Output 02/11/24 02/12/24 02/12/24 18:59 06:59 18:59 Intake Total 1180 Balance 1180 Intake: Intake, IV Titration 100 Amount Piperacillin-Tazobactam 3 100 .375 gm In Sodium Chloride 0.9% 100 ml @ 25 mls/hr IVPB Q8H [facility] Rx#: [id number] Oral 1080 Other: Voiding Method Toilet Toilet Toilet # Voids 3 2 - Labs CBC & Chem 7: 02/12/24 04:04 02/12/24 04:04 Labs: Abnormal Lab Results - Last 24 Hours (Table) 02/12/24 02/12/24 Range/Units 04:04 04:04 WBC 4.25 L (4.50-10.00) X 10*3/uL Hgb 11.1 L (12.0-15.0) g/dL Hct 35.3 L (37.2-46.3) % MCH 26.4 L (27.0-32.0) pg MCHC 31.4 L (32.0-37.0) g/dL Glucose 111 H (70-110) mg/dL Total Protein 5.9 L (6.2-8.2) g/dL Microbiology - Last 24 Hours (Table) 02/11/24 02:33 Urine Culture - Final Urine,Clean Catch 02/10/24 19:22 Blood Culture - Preliminary Blood 02/10/24 19:08 Blood Culture - Preliminary Blood
[2024-02-13] MEDS: ALBUTEROL NEBULIZED 2.5 MG/3 ML INHALATION PRN (00:40)
[2024-02-13 07:36] VITALS: BP 119/81; PULSE 74; RESP 17; TEMP 97.8
[2024-02-13] MEDS ORDERED: PANTOPRAZOLE 40 MG TABLET PO ONE (08:02)
[2024-02-13] MEDS ORDERED: ASPIRIN 81 MG ONE (08:02)
[2024-02-13] MEDS ORDERED: ATORVASTATIN 40 MG TAB ONE (08:02)
[2024-02-13] MEDS ORDERED: ISOSORBIDE MONONITRATE ER 30 MG TAB.ER.24H PO ONE (08:03)
[2024-02-13] MEDS ORDERED: CHOLECALCIFEROL 25 MCG (1000 IU) TABLET ONE (08:03)
[2024-02-13] MEDS ORDERED: FAMOTIDINE 20 MG TAB ONE ×2 (08:03→21:06)
[2024-02-13] MEDS ORDERED: ENOXAPARIN 40 MG/0.4 ML SYRINGE SQ ONE (08:03)
[2024-02-13] MEDS ORDERED: MORPHINE SULFATE 4 MG/ML SYRINGE ONE ×2 (09:11→17:04)
[2024-02-13] MEDS ORDERED: ONDANSETRON 4 MG/2 ML VIAL ONE ×2 (09:11→17:04)
[2024-02-13] MEDS ORDERED: PIPERACILLIN-TAZOBACTAM 3.375 GM VIAL ONE ×2 (12:34→21:07)
[2024-02-13] MEDS ORDERED: oxyCODONE-APAP 10-325MG 1 EACH TAB ONE ×2 (12:34→21:06)
[2024-02-13] MEDS ORDERED: SODIUM CHLORIDE 0.9% 100 ML ONE ×2 (12:34→21:07)
[2024-02-13] MEDS ORDERED: SENNOSIDES-DOCUSATE SODIUM 1 EACH TAB PO ONE (21:06)
[2024-02-13] MEDS ORDERED: MONTELUKAST 10 MG TAB ONE (21:06)
[2024-02-13] MEDS ORDERED: METOPROLOL TARTRATE 25 MG TAB ONE (21:06)
[2024-02-13] MEDS ORDERED: LORATADINE 10 MG TAB ONE (21:07)
[2024-02-13] MEDS ORDERED: clonazePAM 1 MG TAB ONE (21:07)
[2024-02-13] MEDS ORDERED: ZOLPIDEM 5 MG TAB ONE (21:07)
[2024-02-13] MEDS ORDERED: MORPHINE SULFATE ER 30 MG TABLET PO ONE (21:07)
[2024-02-13] MEDS ORDERED: diphenhydrAMINE 25 MG CAP ONE (21:07)
[2024-02-13] MEDS ORDERED: ESCITALOPRAM 10 MG TAB ONE (23:59)
[2024-02-13] MEDS ORDERED: SODIUM CHLORIDE 0.9% 1,000 ML BAG ONE (23:59)
[2024-02-13] MEDS ORDERED: OXYBUTYNIN 15 MG TAB.ER.24 PO ONE (23:59)
[2024-02-14] MEDS ORDERED: oxyCODONE-APAP 10-325MG 1 EACH TAB ONE ×4 (02:13→22:45)
[2024-02-14] MEDS ORDERED: SODIUM CHLORIDE 0.9% 100 ML ONE ×2 (04:05→11:53)
[2024-02-14] MEDS ORDERED: PIPERACILLIN-TAZOBACTAM 3.375 GM VIAL ONE ×2 (04:05→11:52)
[2024-02-14] MEDS ORDERED: ASPIRIN 81 MG ONE (07:52)
[2024-02-14] MEDS ORDERED: ATORVASTATIN 40 MG TAB ONE (07:52)
[2024-02-14] MEDS ORDERED: PANTOPRAZOLE 40 MG TABLET PO ONE (07:52)
[2024-02-14] MEDS ORDERED: ENOXAPARIN 40 MG/0.4 ML SYRINGE SQ ONE (07:53)
[2024-02-14] MEDS ORDERED: ISOSORBIDE MONONITRATE ER 30 MG TAB.ER.24H PO ONE (07:53)
[2024-02-14] MEDS ORDERED: CHOLECALCIFEROL 25 MCG (1000 IU) TABLET ONE (07:53)
[2024-02-14] MEDS ORDERED: FAMOTIDINE 20 MG TAB ONE ×2 (07:53→20:17)
[2024-02-14] MEDS ORDERED: ONDANSETRON 4 MG/2 ML VIAL ONE ×2 (08:41→18:25)
[2024-02-14] MEDS ORDERED: OXYBUTYNIN 15 MG TAB.ER.24 PO ONE (16:00)
[2024-02-14] MEDS ORDERED: ESCITALOPRAM 10 MG TAB ONE (16:00)
[2024-02-14] MEDS ORDERED: LORATADINE 10 MG TAB ONE (20:18)
[2024-02-14] MEDS ORDERED: diphenhydrAMINE 25 MG CAP ONE (20:18)
[2024-02-14] MEDS ORDERED: clonazePAM 1 MG TAB ONE (20:18)
[2024-02-14] MEDS ORDERED: METOPROLOL TARTRATE 25 MG TAB ONE (20:19)
[2024-02-14] MEDS ORDERED: MONTELUKAST 10 MG TAB ONE (20:19)
[2024-02-14] MEDS ORDERED: SENNOSIDES-DOCUSATE SODIUM 1 EACH TAB PO ONE (20:20)
[2024-02-14] MEDS ORDERED: ZOLPIDEM 5 MG TAB ONE (20:20)
[2024-02-14] MEDS ORDERED: AMOXIC-POT CLAV 875-125MG 1 EACH TAB ONE (22:13)
[2024-02-14] MEDS ORDERED: FUROSEMIDE 10 MG/ML 4 ML VIAL ONE ×2 (22:14)
[2024-02-14] MEDS ORDERED: LOPERAMIDE 2 MG CAP ONE (22:47)
[2024-02-15] MEDS ORDERED: ASPIRIN 81 MG ONE (09:14)
[2024-02-15] MEDS ORDERED: PANTOPRAZOLE 40 MG TABLET PO ONE (09:14)
[2024-02-15] MEDS ORDERED: ATORVASTATIN 40 MG TAB ONE (09:14)
[2024-02-15] MEDS ORDERED: FAMOTIDINE 20 MG TAB ONE (09:15)
[2024-02-15] MEDS ORDERED: CHOLECALCIFEROL 25 MCG (1000 IU) TABLET ONE (09:15)
[2024-02-15] MEDS ORDERED: ONDANSETRON 4 MG/2 ML VIAL ONE (09:15)
[2024-02-15] MEDS ORDERED: oxyCODONE-APAP 10-325MG 1 EACH TAB ONE ×2 (09:15→13:21)
[2024-02-15] MEDS ORDERED: ENOXAPARIN 40 MG/0.4 ML SYRINGE SQ ONE (09:16)
[2024-02-15] MEDS ORDERED: ISOSORBIDE MONONITRATE ER 30 MG TAB.ER.24H PO ONE (09:16)
[2024-02-15] MEDS ORDERED: PIPERACILLIN-TAZOBACTAM 3.375 GM VIAL ONE (13:21)
[2024-02-15] MEDS ORDERED: SODIUM CHLORIDE 0.9% 100 ML ONE (13:21)
[2024-02-27] MEDS ORDERED: SECUKINUMAB 150 MG/ML SQ SCH (09:00)
[2024-02-27] MEDS ORDERED: NON FORMULARY DRUG (Erenumab-Aooe [Aimovig Autoinjector] 140 MG/ML Auto.Injct) SQ SCH (09:00)
[2024-03-07 14:41] LABS: RBC 4.18 m/uL (3.80-5.40); WBC 4.6 k/uL (3.8-10.6)
[2024-03-07 14:42] LABS: Basophils % (A) 1 %; Eosinophils % (A) 4 %; HCT 34.6 % (34.0-46.0); HGB 11.4 gm/dL (11.4-16.0); Lymphocytes % (A) 45 %; MCH 27.4 pg (25.0-35.0); MCHC 33.1 g/dL (31.0-37.0); MCV 82.8 fL (80.0-100.0); Monocytes % (A) 6 %; Neutrophils % (A) 43.9; Platelet Count 248 k/uL (150-450); RDW 14.4 % (11.5-15.5)
[2024-03-07 14:43] LABS: Eosinophils # (A) 0.2 k/uL (0-0.7); Lymphocytes # (A) 2.1 k/uL (1.0-4.8); Monocytes # (A) 0.3 k/uL (0-1.0)
[2024-03-07 14:44] LABS: ALT 17 U/L (4-34); AST 27 U/L (14-36); African American GFR (CKD) >90; Albumin/Globulin Ratio 1.7; Alkaline Phosphatase 84 U/L (38-126); Anion Gap 6 mmol/L; Blood Urea Nitrogen 11 mg/dL (7-17); Calcium 8.9 mg/dL (8.4-10.2); Carbon Dioxide 19 mmol/L (22-30); Chloride 111 mmol/L (98-107); Globulin 2.3 g/dL; Glucose 98 mg/dL (74-99); Potassium 3.8 mmol/L (3.5-5.1); Sodium 136 mmol/L (137-145); Total Bilirubin 0.6 mg/dL (0.2-1.3); Total Protein 6.3 g/dL (6.3-8.2)
== END 2024-02-15 16:07 | disposition home or self-care (01) | DRG 690 ==
LOC: EC 12:54 → 5NMEDONC 19:44
PROVIDERS: ADMIT Internal Medicine; ATTEND Internal Medicine
DX: N12 Tubulo-interstitial nephritis, not specified as acute or chronic (principal); Q79.60 Ehlers-Danlos syndrome, unspecified; M79.7 Fibromyalgia; N30.10 Interstitial cystitis (chronic) without hematuria; N32.89 Other specified disorders of bladder; Z79.82 Long term (current) use of aspirin; Z79.899 Other long term (current) drug therapy; Z82.49 Family history of ischemic heart disease and other diseases of the circulatory system; Z82.69 Family history of other diseases of the musculoskeletal system and connective tissue; M32.9 Systemic lupus erythematosus, unspecified; M06.9 Rheumatoid arthritis, unspecified; L40.50 Arthropathic psoriasis, unspecified; K76.0 Fatty (change of) liver, not elsewhere classified; K58.9 Irritable bowel syndrome, unspecified; J45.30 Mild persistent asthma, uncomplicated; I10 Essential (primary) hypertension; G89.4 Chronic pain syndrome; G40.909 Epilepsy, unspecified, not intractable, without status epilepticus; B96.20 Unspecified Escherichia coli [E. coli] as the cause of diseases classified elsewhere; G47.00 Insomnia, unspecified; F90.9 Attention-deficit hyperactivity disorder, unspecified type; F41.9 Anxiety disorder, unspecified; F32.A Depression, unspecified; E78.2 Mixed hyperlipidemia; Z87.440 Personal history of urinary (tract) infections; Z90.711 Acquired absence of uterus with remaining cervical stump; Z98.2 Presence of cerebrospinal fluid drainage device; Z96.642 Presence of left artificial hip joint; Z88.6 Allergy status to analgesic agent; J30.9 Allergic rhinitis, unspecified
CPT/HCPCS: 36415; 80053; 81001; 83605; 84145; 85025; 85027; 86140; 87040; 87086; 94640; 96365; 96366; 96375; 99285

== ENCOUNTER → 2024-02-16 | Outpatient (CLI) | payer MEDICARE, OTHER | END | disposition home or self-care (01) | LOC: LABPRL 09:20 | PROVIDERS: ATTEND Internal Medicine | DX: R53.1 Weakness (principal) | CPT/HCPCS: 80053; 80061; 85025 ==

== ENCOUNTER → 2024-03-13 | Outpatient (CLI) | payer MEDICARE, OTHER ==
[2024-03-13 16:52] LABS: Basophils # (A) 0.04 X 10*3/uL (0.00-0.10); Basophils % (A) 0.7 %; Eosinophils # (A) 0.25 X 10*3/uL (0.04-0.35); Eosinophils % (A) 4.5 %; HCT 38.8 % (37.2-46.3); HGB 12.8 g/dL (12.0-15.0); Lymphocytes # (A) 2.25 X 10*3/uL (0.90-5.00); Lymphocytes % (A) 40.6 %; MCH 27.2 pg (27.0-32.0); MCV 82.4 FL (80.0-97.0); Mean Platelet Volume 10.5 FL (9.5-12.2); Monocytes # (A) 0.47 X 10*3/uL (0.20-1.00); Monocytes % (A) 8.5 %; NRBC Per 100 WBC 0 X 10*3/uL (0.00-0.01); Neutrophils # (A) 2.51 X 10*3/uL (1.80-7.70); Neutrophils % (A) 45.3 %; Platelet Count 250 X 10*3/uL (140-440); RBC 4.71 X 10*6/uL (4.10-5.20); RDW 13.7 % (11.5-14.5); WBC 5.54 X 10*3/uL (4.50-10.00)
[2024-03-13 22:13] LABS: ALT 18 U/L (8-44); AST 21 U/L (13-35); Albumin 4.2 g/dL (3.8-4.9); Alkaline Phosphatase 124 U/L (41-126); BUN/Creat Ratio 12.12 Ratio (12.00-20.00); Blood Urea Nitrogen 9.7 mg/dL (9.0-27.0); Calcium 9.5 mg/dL (8.7-10.3); Carbon Dioxide 25.3 mmol/L (21.6-31.8); Chloride 104 mmol/L (96-109); Chol/HDL Ratio 4.18 Ratio; Ferritin 55.4 ng/mL (10.0-291.0); Glucose 93 mg/dL (70-110); Iron 47 UG/DL (50-170); Magnesium 1.6 mg/dL (1.5-2.4); Potassium 4.5 mmol/L (3.5-5.5); Sodium 141 mmol/L (135-145); Total Bilirubin 0.6 mg/dL (0.3-1.2); Total Iron Binding Capacity 343 UG/DL (228-460); Total Protein 6.2 g/dL (6.2-8.2)
== END | disposition home or self-care (01) ==
LOC: LABWHC1 03-05 11:06
PROVIDERS: ATTEND Internal Medicine
DX: Z13.220 Encounter for screening for lipoid disorders (principal); N30.10 Interstitial cystitis (chronic) without hematuria; E55.9 Vitamin D deficiency, unspecified; R73.01 Impaired fasting glucose
CPT/HCPCS: 36415; 80053; 80061; 82306; 82728; 83036; 83540; 83550; 83721; 83735; 84443; 85025; 87077; 87086; 87186

== ENCOUNTER 2024-04-04 08:07 | Emergency (ER) | payer MEDICARE, OTHER ==
--- NOTE | 2024-04-04 08:41 | ED ---
Extremity Problem HPI - General Chief complaint: Extremity Problem,Nontraumatic Stated complaint: L hip pain/post op Time Seen by Provider: 04/04/24 08:40 Source: patient, RN notes reviewed Mode of arrival: ambulatory Limitations: no limitations - History of Present Illness Initial comments: 44-year-old male presented to the ER with a chief complaint of left hip pain. Patient underwent a left hip arthroplasty on 11-01-[address] Wheeler. She states on she open underwent an open debridement for infection. She states she has been consistently having pain since arthroplasty. Patient recently was treated with steroids outpatient she only took 3 doses but not taking them as she was not feeling any improvement. She does report recent UTI. States the pain has increased to where she cannot lay on it and that she is limping while walking. She does report a history of lupus and intermittent fevers. Patient has taken prescribed Percocet and morphine without relief. - Related Data Home Medications Medication Instructions Recorded Confirmed Montelukast Sodium [Singulair] 10 mg PO DAILY 08/13/18 04/04/24 Dicyclomine [Bentyl] 10 mg PO QID PRN 02/17/21 04/04/24 Famotidine [Pepcid] 20 mg PO BID 02/17/21 04/04/24 Rimegepant Sulfate [Nurtec Odt] 75 mg PO DAILY PRN 02/17/21 04/04/24 Erenumab-Aooe [Aimovig 140 mg SQ Q28D 08/04/21 04/04/24 Autoinjector] Metoprolol Tartrate [Lopressor] 25 mg PO DAILY 10/21/22 04/04/24 clonazePAM 2 mg PO HS 10/21/22 04/04/24 medroxyPROGESTERone [Depo-Provera] 150 mg IM Q84D 10/21/22 04/04/24 Aspirin EC [Ecotrin Low Dose] 81 mg PO DAILY 11/22/22 04/04/24 Nitroglycerin Sl Tabs [Nitrostat] 0.4 mg SL Q5M PRN 11/22/22 04/04/24 Oxybutynin ER [Ditropan XL] 15 mg PO HS 11/22/22 04/04/24 diphenhydrAMINE HCL [Benadryl] 25 mg PO HS 11/22/22 04/04/24 Cholecalciferol [Vitamin D3 (25 25 mcg PO DAILY 01/25/23 04/04/24 Mcg = 1000 Iu)] Atorvastatin [Lipitor] 40 mg PO DAILY 08/05/23 04/04/24 Lisdexamfetamine Dimesylate 60 mg PO DAILY 08/05/23 04/04/24 [Vyvanse] Nystatin 100,000 Unit/ml Susp 500,000 unit PO QID 08/05/23 04/04/24 [Mycostatin Oral Susp] Pantoprazole [Protonix] 80 mg PO DAILY 08/05/23 04/04/24 Zolpidem Tartrate [Ambien] 5 mg PO HS 08/05/23 04/04/24 Albuterol Inhaler [Ventolin Hfa 2 puff INHALATION RT-Q6H PRN 10/27/23 04/04/24 Inhaler] Cetirizine HCl [Zyrtec] 10 mg PO DAILY 10/27/23 04/04/24 Escitalopram [Lexapro] 10 mg PO HS 10/27/23 04/04/24 Secukinumab [Cosentyx Sensoready 300 mg SQ Q28D 10/27/23 04/04/24 (2 Pens)] tiZANidine [Zanaflex] 4 mg PO TID PRN 10/27/23 04/04/24 Albuterol Nebulized [Ventolin 2.5 mg INHALATION RT-Q6H PRN 11/11/23 04/04/24 Nebulized] oxyCODONE-APAP 10-325MG [Percocet 1 tab PO Q6H 12/29/23 04/04/24 10-325 mg] Isosorbide Mononitrate ER [Imdur] 15 mg PO DAILY 02/10/24 04/04/24 Morphine Sulfate ER [Ms Contin] 30 mg PO HS 02/10/24 04/04/24 Clindamycin 1% Pads 1 pad TOPICAL BID 04/04/24 04/04/24 Clobetasol Propionate [Clobex 1 applic TOPICAL HS 04/04/24 04/04/24 0.05% Soln] Ezetimibe [Zetia] 10 mg PO DAILY 04/04/24 04/04/24 Hydrocortisone Cream 1 applic TOPICAL HS 04/04/24 04/04/24 [Hydrocortisone 2.5% Cream] Magic 5 ml PO QID PRN 04/04/24 04/04/24 Mouthwash(Maalox,Lidocaine,Benadryl) Naloxone HCl [Narcan] 4 mg NASAL DIRECTED PRN 04/04/24 04/04/24 metroNIDAZOLE 0.75% CREAM 1 applic TOPICAL DAILY 04/04/24 04/04/24 [Metrocream 0.75%] Allergies Allergy/AdvReac Type Severity Reaction Status Date / Time ibuprofen [From Motrin] AdvReac Kidney Verified 04/04/24 10:25 Failure metoclopramide HCl AdvReac Hallucinati Verified 04/04/24 10:25 [From Reglan] ons NSAIDS (Non-Steroidal AdvReac Kidney Verified 04/04/24 10:25 Anti-Inflamma Failure pregabalin [From Lyrica] AdvReac Cough Verified 04/04/24 10:25 prochlorperazine AdvReac Hallucinati Verified 04/04/24 10:25 [From Compazine] ons Review of Systems ROS Statement: Those systems with pertinent positive or pertinent negative responses have been documented in the HPI. ROS Other: All systems not noted in ROS Statement are negative. Past Medical History Past Medical History: Asthma, Chest Pain / Angina, Fibromyalgia, GERD/Reflux, Hyperlipidemia, Liver Disease, Neurologic Disorder, Rheumatoid Arthritis (RA) Additional Past Medical History / Comment(s): PSORIATIC ARTHRITIS. POTS. Chiari malformation with AUTISM SPECIALIST shunt. Migraines. IBS. Lupus. OCCASIONAL DIZZINESS, IRREGULAR HEART RATE. HX POLYNEPHRITIS. Non-alcoholic fatty liver. History of Any Multi-Drug Resistant Organisms: None Reported Past Surgical History: Bladder Surgery, Hysterectomy, Joint Replacement, Orthopedic Surgery, Tonsillectomy, Tubal Ligation Additional Past Surgical History / Comment(s): Chiari decompression, shunt to brain, brain surgery X5, bladder suspension, bladder lift partial hysterectomy, uterus lift, bilateral carpal tunnel. Past Anesthesia/Blood Transfusion Reactions: No Reported Reaction Past Psychological History: ADD/ADHD, Anxiety, Depression Smoking Status: Never smoker Past Alcohol Use History: None Reported Past Drug Use History: None Reported - Past Family History Mother Family Medical History: No Reported History Father Family Medical History: Unable to Obtain General Exam - General Exam Comments Initial Comments: Visual Physical Exam Vital signs reviewed General: Well-appearing, nontoxic, no acute distress. Head: Normocephalic, atraumatic Eyes: PERRLA, EOMI ENT: Airway patent Chest: Nonlabored breathing Skin: No visual rash, normal skin tone Neuro: Alert and oriented 3 Musculoskeletal: No gross abnormalities Limitations: no limitations General appearance: alert, in no apparent distress Respiratory exam: Present: normal lung sounds bilaterally. Absent: respiratory distress, wheezes, rales, rhonchi, stridor Cardiovascular Exam: Present: regular rate, normal rhythm, normal heart sounds. Absent: systolic murmur, diastolic murmur, rubs, gallop, clicks Extremities exam: Present: tenderness (Left greater trochanter. Pain with internal and external rotation of left hip. 2+ left dorsalis pedis and posterior tibialis pulses. Pain with movement against resistance. ) Neurological exam: Present: alert, oriented X3, CN II-XII intact Skin exam: Present: warm, dry, intact, normal color, other (Healed surgical incision to anterior left hip. No surrounding erythema or purulent drainage present.) Course Vital Signs 04/04/24 04/04/24 04/04/24 08:09 10:20 11:36 Temperature 98.1 F 98.7 F 98.2 F Pulse Rate 71 71 62 Respiratory 18 17 17 Rate Blood Pressure 146/79 101/61 99/74 O2 Sat by Pulse 99 98 98 Oximetry 04/04/24 04/04/24 12:39 13:49 Temperature 98.4 F 97.9 F Pulse Rate 62 72 Respiratory 17 18 Rate Blood Pressure 126/87 115/80 O2 Sat by Pulse 100 99 Oximetry - Reevaluation(s) Reevaluation #1: 04/04/24 16:[address] Osorio who advises on outpatient management. Medical Decision Making - Medical Decision Making I performed the quick note portion of this chart. Electronically signed by Leonel Cabral PA-C Was pt. sent in by a medical professional or institution ([facility], RET[employer] SAL[employer] TEAM[employer]ATE, urgent care, hospital, or longterm...) When possible be specific @ -No Did you speak to anyone other than the patient for history (EMS, parent, family, police, friend...)? What history was obtained from this source @ -No Did you review nursing and triage notes (agree or disagree)? Why? @ -I reviewed and agree with nursing and triage notes Were old charts reviewed (outside hosp., previous admission, EMS record, old EKG, old radiological studies, urgent care reports/EKG's, longterm records)? Report findings @ -No old charts were reviewed Differential Diagnosis (chest pain, altered mental status, abdominal pain women, abdominal pain men, vaginal bleeding, weakness, fever, dyspnea, syncope, heada montse, dizziness, GI bleed, back pain, seizure, CVA, palpatations, mental health, musculoskeletal)? @ -Differential Musculoskeletal: Muscular strain, contusion, ligament sprain, fracture, arthritis, septic arthritis, bursitis, cellulitis, muscle spasm, nerve compression, DVT, arterial occlusion, herpes zoster, electrolyte abnormality, tumor.... This is not meant to be in all inclusive list EKG interpreted by me (3pts min.). @ -None done X-rays interpreted by me (1pt min.). @ -Left hip x-ray negative for acute process. CT interpreted by me (1pt min.). @ -None done U/S interpreted by me (1pt. min.). @ -None done What testing was considered but not performed or refused? (CT, X-rays, U/S, la bs)? Why? @ -None What meds were considered but not given or refused? Why? @ -None Did you discuss the management of the patient with other professionals (professionals i.e. , PA, RETAIL SALES TEAMMATE, lab, RT, psych nurse, social services counselor, record center specialist, teacher, nursing officer, case monitor)? Give summary @ -Case discussed with Dr. Osorio who states patient can follow-up outpatient at pain management. Was smoking cessation discussed for >3mins.? @ -No Was critical care preformed (if so, how long)? @ -No Were there social determinants of health that impacted care today? How? (Homelessness, low income, unemployed, alcoholism, drug addiction, transportation, low edu. Level, literacy, decrease access to med. care, intermediate, rehab)? @ -No Was there de-escalation of care discussed even if they declined (Discuss DNR or withdrawal of care, Hospice)? DNR status @ -No What co-morbidities impacted this encounter? (DM, HTN, Smoking, COPD, CAD, Cancer, CVA, ARF, Chemo, Hep., AIDS, mental health diagnosis, sleep apnea, morbid obesity)? @ -None Was patient admitted / discharged? Hospital course, mention meds given and route, prescriptions, significant lab abnormalities, going to OR and other pertinent info. @ -Discharge. 44-year-old female presented to the ER with a chief complaint of left hip pain. Patient underwent arthroplasty in October by Dr. Wheeler. History and physical exam completed. Vitals within normal limits. Left lower extremity neurovascular intact. Patient has full range of motion. Surgical incision appears healed with no evidence of dehiscence or infection. Tenderness to left greater trochanter. Laboratory studies obtained unremarkable. CRP <0.5. WBC 7.9. X-rays obtained negative for acute process. Urinalysis without evidence of infection. Patient received symptomatic control in the ER. Patient still reporting 8 out of 10 pain. Patient does follow-up with pain management outpatient and has a appointment tomorrow. I discussed this case with Dr. Osorio who states patient can follow-up outpatient with pain management. Strict turn parameters discussed. Patient discharged stable condition. Patient verbally expressed understanding agree with care plan. Case discussed with , Dr. Schrader. Undiagnosed new problem with uncertain prognosis? @ -No Drug Therapy requiring intensive monitoring for toxicity (Heparin, Nitro, Insulin, Cardizem)? @ -No Were any procedures done? @ -No Diagnosis/symptom? @ -Hip pain Acute, or Chronic, or Acute on Chronic? @ -Acute Uncomplicated (without systemic symptoms) or Complicated (systemic symptoms)? @ -Uncomplicated Side effects of treatment? @ -No Exacerbation, Progression, or Severe Exacerbation? @ -No Poses a threat to life or bodily function? How? (Chest pain, USA, NM, pneumonia, PE, COPD, DKA, ARF, appy, cholecystitis, CVA, Diverticulitis, Homicidal, Suicidal, threat to staff... and all critical care pts) @ -No - Lab Data Result diagrams: 04/04/24 09:04/04/24 09: Lab Results 04/04/24 04/04/24 04/04/24 Range/Units : 09: 09:28 WBC 7.9 (3.8-10.6) k/uL RBC 5.14 (3.80-5.40) m/uL Hgb 14.2 (11.4-16.0) gm/dL Hct 43.0 (34.0-46.0) % MCV 83.6 (80.0-100.0) fL MCH 27.5 (25.0-35.0) pg MCHC 33.0 (31.0-37.0) g/dL RDW 14.1 (11.5-15.5) % Plt Count 293 (150-450) k/uL MPV 7.0 Neutrophils % 51 % Lymphocytes % 38 % Monocytes % 6 % Eosinophils % 3 % Basophils % 1 % Neutrophils # 4.0 (1.3-7.7) k/uL Lymphocytes # 3.0 (1.0-4.8) k/uL Monocytes # 0.5 (0-1.0) k/uL Eosinophils # 0.3 (0-0.7) k/uL Basophils # 0.1 (0-0.2) k/uL ESR 9 (0-20) mm/Hr Sodium 136 L (137-145) mmol/L Potassium 5.0 (3.5-5.1) mmol/L Chloride 103 (98-107) mmol/L Carbon Dioxide 30 (22-30) mmol/L Anion Gap 3 mmol/L BUN 16 (7-17) mg/dL Creatinine 0.79 (0.52-1.04) mg/dL Est GFR (CKD-EPI)AfAm >90 (>60 ml/min/1.73 sqM) Est GFR (CKD-EPI)NonAf >90 (>60 ml/min/1.73 sqM) Glucose 90 (74-99) mg/dL Plasma Lactic Acid Paulino 1.0 (0.7-2.0) mmol/L Calcium 9.2 (8.4-10.2) mg/dL Total Bilirubin 1.5 H (0.2-1.3) mg/dL AST 35 (14-36) U/L ALT 35 H (4-34) U/L Alkaline Phosphatase 91 (38-126) U/L C-Reactive Protein <0.5 (<1.0) mg/dL Total Protein 6.5 (6.3-8.2) g/dL Albumin 4.1 (3.5-5.0) g/dL Urine Color Urine Appearance (Clear) Urine pH (5.0-8.0) Ur Specific [place] (1.001-1.035) Urine Protein (Negative) Urine Glucose (UA) (Negative) Urine Ketones (Negative) Urine Blood (Negative) Urine Nitrite (Negative) Urine Bilirubin (Negative) Urine Urobilinogen (<2.0) mg/dL Ur Leukocyte Esterase (Negative) Urine HCG, Qual (Not Detectd) 04/04/24 04/04/24 Range/Units 10:18 10:18 WBC (3.8-10.6) k/uL RBC (3.80-5.40) m/uL Hgb (11.4-16.0) gm/dL Hct (34.0-46.0) % MCV (80.0-100.0) fL MCH (25.0-35.0) pg MCHC (31.0-37.0) g/dL RDW (11.5-15.5) % Plt Count (150-450) k/uL MPV Neutrophils % % Lymphocytes % % Monocytes % % Eosinophils % % Basophils % % Neutrophils # (1.3-7.7) k/uL Lymphocytes # (1.0-4.8) k/uL Monocytes # (0-1.0) k/uL Eosinophils # (0-0.7) k/uL Basophils # (0-0.2) k/uL ESR (0-20) mm/Hr Sodium (137-145) mmol/L Potassium (3.5-5.1) mmol/L Chloride (98-107) mmol/L Carbon Dioxide (22-30) mmol/L Anion Gap mmol/L BUN (7-17) mg/dL Creatinine (0.52-1.04) mg/dL Est GFR (CKD-EPI)AfAm (>60 ml/min/1.73 sqM) Est GFR (CKD-EPI)NonAf (>60 ml/min/1.73 sqM) Glucose (74-99) mg/dL Plasma Lactic Acid Paulino (0.7-2.0) mmol/L Calcium (8.4-10.2) mg/dL Total Bilirubin (0.2-1.3) mg/dL AST (14-36) U/L ALT (4-34) U/L Alkaline Phosphatase (38-126) U/L C-Reactive Protein (<1.0) mg/dL Total Protein (6.3-8.2) g/dL Albumin (3.5-5.0) g/dL Urine Color Light Yellow Urine Appearance Clear (Clear) Urine pH 5.5 (5.0-8.0) Ur Specific [place] 1.017 (1.001-1.035) Urine Protein Negative (Negative) Urine Glucose (UA) Negative (Negative) Urine Ketones Negative (Negative) Urine Blood Negative (Negative) Urine Nitrite Negative (Negative) Urine Bilirubin Negative (Negative) Urine Urobilinogen <2.0 (<2.0) mg/dL Ur Leukocyte Esterase Negative (Negative) Urine HCG, Qual Not Detected (Not Detectd) - Radiology Data Radiology results: report reviewed, image reviewed Disposition Clinical Impression: S/P total hip arthroplasty, Hip pain Disposition: HOME SELF-CARE Condition: Stable Additional Instructions: Follow-up with pain management as scheduled tomorrow. Return to the ER for any new or worsening concerns. Is patient prescribed a controlled substance at d/c from ED?: No Referrals: Demarcus Osorio MD [Primary Care Provider] - 1-2 days Cristiano Wheeler DO [Doctor of Osteopathic Medicine] - 1-2 days Time of Disposition: 13:31
[2024-04-04 10:07] LABS: Basophils # (A) 0.1 k/uL (0-0.2); Basophils % (A) 1 %; Eosinophils # (A) 0.3 k/uL (0-0.7); Eosinophils % (A) 3 %; HGB 14.2 gm/dL (11.4-16.0); Lymphocytes % (A) 38 %; MCH 27.5 pg (25.0-35.0); MCV 83.6 fL (80.0-100.0); Monocytes # (A) 0.5 k/uL (0-1.0); Monocytes % (A) 6 %; Neutrophils % (A) 51 %; Platelet Count 293 k/uL (150-450); RBC 5.14 m/uL (3.80-5.40); RDW 14.1 % (11.5-15.5); WBC 7.9 k/uL (3.8-10.6)
[2024-04-04 10:18] LABS: ALT 35 U/L (4-34); AST 35 U/L (14-36); African American GFR (CKD) >90 (>60 ml/min/1.73 sqM); Albumin 4.1 g/dL (3.5-5.0); Alkaline Phosphatase 91 U/L (38-126); Anion Gap 3 mmol/L; Blood Urea Nitrogen 16 mg/dL (7-17); Calcium 9.2 mg/dL (8.4-10.2); Carbon Dioxide 30 mmol/L (22-30); Chloride 103 mmol/L (98-107); Glucose 90 mg/dL (74-99); Non-African American GFR(CKD) >90 (>60 ml/min/1.73 sqM); Sodium 136 mmol/L (137-145); Total Bilirubin 1.5 mg/dL (0.2-1.3); Total Protein 6.5 g/dL (6.3-8.2)
[2024-04-04] MEDS: ONDANSETRON 4 MG/2 ML VIAL IVP STA (10:23)
[2024-04-04 10:25] LABS: Appearance,Urine Clear (Clear); Bilirubin,Urine Negative (Negative); Blood,Urine Negative (Negative); Color,Urine Light Yellow; Glucose,Urine (UA) Negative (Negative); Ketones,Urine Negative (Negative); Leukocyte Esterase,Urine Negative (Negative); Nitrite,Urine Negative (Negative); PH, Urine 5.5 (5.0-8.0); Protein,Urine Negative (Negative); Specific Gravity,Urine 1.017 (1.001-1.035); Urobilinogen,Urine <2.0 mg/dL (<2.0)
[2024-04-04] MEDS: HYDROmorphone 1 MG/ML 1 ML SYRINGE IVP STA (10:26)
[2024-04-04 10:44] LABS: C Reactive Protein <0.5 mg/dL (<1.0)
--- NOTE | 2024-04-04 11:36 | XR ---
EXAMINATION TYPE: XR Hip Complete LT DATE OF EXAM: 04/04/2024 COMPARISON: NONE HISTORY: Pain TECHNIQUE: One view submitted. FINDINGS: There is postsurgical change compatible hip replacement surgery. A catheter seen in the pelvis. IMPRESSION: 1. Postoperative change. [facility] Perri Alarcon, , 04/04/2024 11:34 AM
[2024-04-04] MEDS: MORPHINE SULFATE 4 MG/ML SYRINGE IVP STA (12:42)
[2024-04-04 13:51] VITALS: BP 115/80; PULSE 72; RESP 18; TEMP 97.9
[2024-04-04 15:59] LABS: Erythrocyte Sedimentation Rate 9 mm/Hr (0-20)
== END 2024-04-04 13:50 | disposition home or self-care (01) ==
LOC: EC 08:07
CPT/HCPCS: 36415; 73502; 80053; 81003; 81025; 83605; 85025; 85652; 86140; 96374; 96375; 99283

== ENCOUNTER 2024-04-27 08:55 | Emergency (ER) | payer MEDICARE, OTHER ==
[2024-04-27 09:05] VITALS: TEMP 97.7
--- NOTE | 2024-04-27 09:39 | ED ---
General Adult HPI - General Source: patient, RN notes reviewed Mode of arrival: ambulatory Limitations: no limitations <April Cabral - Last Filed: 04/27/24 09:38> <Mary Gama - Last Filed: 04/27/24 23:23> - General Chief complaint: Neuro Symptoms/Deficit Stated complaint: facial numbness,vision loss Time Seen by Provider: 04/27/24 09:38 - History of Present Illness Initial comments: Quick note. 44-year-old female presenting to the ER with a chief complaint of right-sided facial numbness. 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 She states for the past 2 days she has been having a "not normal migraine". She reports right- sided facial numbness, pressure behind right eye and ear radiating into her neck. She also is reporting right sided blurry vision. She is nauseous. She does report a fall from a stepstool 2 days ago with head injury. She took Nurtec without relief. (April Cabral) 44-year-old female presents emergency department with reported right-sided facial tingling and headache. States that 3 days ago she began having her symptoms. She did have a fall and states that she slightly bumped her head but did not have any symptoms afterwards. Following day she began having some numbness to the right side of her face. Also reports to decreased vision out of her right eye. She has a history of a shunt with multiple revisions. Is concern for shunt malfunction. She also has migraines. States that she took her home Nurtec without any improvement in her headache. Headache is better when she lays down and worse when she sits up. No fevers. No neck stiffness. She does not take any blood thinners. Admits to nausea. No numbness, tingling or weakness in her extremities. No other alleviating, precipitating or modifying factors (Mary Gama) - Related Data Home Medications Medication Instructions Recorded Confirmed Montelukast Sodium [Singulair] 10 mg PO DAILY 08/13/18 04/04/24 Dicyclomine [Bentyl] 10 mg PO QID PRN 02/17/21 04/04/24 Famotidine [Pepcid] 20 mg PO BID 02/17/21 04/04/24 Rimegepant Sulfate [Nurtec Odt] 75 mg PO DAILY PRN 02/17/21 04/04/24 Erenumab-Aooe [Aimovig 140 mg SQ Q28D 08/04/21 04/04/24 Autoinjector] Metoprolol Tartrate [Lopressor] 25 mg PO DAILY 10/21/22 04/04/24 clonazePAM 2 mg PO HS 10/21/22 04/04/24 medroxyPROGESTERone [Depo-Provera] 150 mg IM Q84D 10/21/22 04/04/24 Aspirin EC [Ecotrin Low Dose] 81 mg PO DAILY 11/22/22 04/04/24 Nitroglycerin Sl Tabs [Nitrostat] 0.4 mg SL Q5M PRN 11/22/22 04/04/24 Oxybutynin ER [Ditropan XL] 15 mg PO HS 11/22/22 04/04/24 diphenhydrAMINE HCL [Benadryl] 25 mg PO HS 11/22/22 04/04/24 Cholecalciferol [Vitamin D3 (25 25 mcg PO DAILY 01/25/23 04/04/24 Mcg = 1000 Iu)] Atorvastatin [Lipitor] 40 mg PO DAILY 08/05/23 04/04/24 Lisdexamfetamine Dimesylate 60 mg PO DAILY 08/05/23 04/04/24 [Vyvanse] Nystatin 100,000 Unit/ml Susp 500,000 unit PO QID 08/05/23 04/04/24 [Mycostatin Oral Susp] Pantoprazole [Protonix] 80 mg PO DAILY 08/05/23 04/04/24 Zolpidem Tartrate [Ambien] 5 mg PO HS 08/05/23 04/04/24 Albuterol Inhaler [Ventolin Hfa 2 puff INHALATION RT-Q6H PRN 10/27/23 04/04/24 Inhaler] Cetirizine HCl [Zyrtec] 10 mg PO DAILY 10/27/23 04/04/24 Escitalopram [Lexapro] 10 mg PO HS 10/27/23 04/04/24 Secukinumab [Cosentyx Sensoready 300 mg SQ Q28D 10/27/23 04/04/24 (2 Pens)] tiZANidine [Zanaflex] 4 mg PO TID PRN 10/27/23 04/04/24 Albuterol Nebulized [Ventolin 2.5 mg INHALATION RT-Q6H PRN 11/11/23 04/04/24 Nebulized] oxyCODONE-APAP 10-325MG [Percocet 1 tab PO Q6H 12/29/23 04/04/24 10-325 mg] Isosorbide Mononitrate ER [Imdur] 15 mg PO DAILY 02/10/24 04/04/24 Morphine Sulfate ER [Ms Contin] 30 mg PO HS 02/10/24 04/04/24 Clindamycin 1% Pads 1 pad TOPICAL BID 04/04/24 04/04/24 Clobetasol Propionate [Clobex 1 applic TOPICAL HS 04/04/24 04/04/24 0.05% Soln] Ezetimibe [Zetia] 10 mg PO DAILY 04/04/24 04/04/24 Hydrocortisone Cream 1 applic TOPICAL HS 04/04/24 04/04/24 [Hydrocortisone 2.5% Cream] Magic 5 ml PO QID PRN 04/04/24 04/04/24 Mouthwash(Maalox,Lidocaine,Benadryl) Naloxone HCl [Narcan] 4 mg NASAL DIRECTED PRN 04/04/24 04/04/24 metroNIDAZOLE 0.75% CREAM 1 applic TOPICAL DAILY 04/04/24 04/04/24 [Metrocream 0.75%] Allergies Allergy/AdvReac Type Severity Reaction Status Date / Time ibuprofen [From Motrin] AdvReac Kidney Verified 04/27/24 09:05 Failure metoclopramide HCl AdvReac Hallucinati Verified 04/27/24 09:05 [From Reglan] ons NSAIDS (Non-Steroidal AdvReac Kidney Verified 04/27/24 09:05 Anti-Inflamma Failure pregabalin [From Lyrica] AdvReac Cough Verified 04/27/24 09:05 prochlorperazine AdvReac Hallucinati Verified 04/27/24 09:05 [From Compazine] ons Review of Systems ROS Other: All systems not noted in ROS Statement are negative. <April Cabral - Last Filed: 04/27/24 09:38> ROS Other: All systems not noted in ROS Statement are negative. <Mary Gama - Last Filed: 04/27/24 23:23> ROS Statement: Those systems with pertinent positive or pertinent negative responses have been documented in the HPI. Past Medical History Past Medical History: Asthma, Chest Pain / Angina, Fibromyalgia, GERD/Reflux, Hyperlipidemia, Liver Disease, Neurologic Disorder, Rheumatoid Arthritis (RA) Additional Past Medical History / Comment(s): PSORIATIC ARTHRITIS. POTS. Chiari malformation with WASH PLANT OPERATOR shunt. Migraines. IBS. Lupus. OCCASIONAL DIZZINESS, IRREGULAR HEART RATE. HX POLYNEPHRITIS. Non-alcoholic fatty liver. History of Any Multi-Drug Resistant Organisms: None Reported Past Surgical History: Bladder Surgery, Hysterectomy, Joint Replacement, Orthopedic Surgery, Tonsillectomy, Tubal Ligation Additional Past Surgical History / Comment(s): Chiari decompression, shunt to brain, brain surgery X5, bladder suspension, bladder lift partial hysterectomy, uterus lift, bilateral carpal tunnel. Past Anesthesia/Blood Transfusion Reactions: No Reported Reaction Past Psychological History: ADD/ADHD, Anxiety, Depression Smoking Status: Never smoker Past Alcohol Use History: None Reported Past Drug Use History: None Reported - Past Family History Mother Family Medical History: No Reported History Father Family Medical History: Unable to Obtain <April Cabral - Last Filed: 04/27/24 09:38> General Exam Limitations: no limitations <April Cabral - Last Filed: 04/27/24 09:38> General appearance: alert, in no apparent distress Head exam: Present: atraumatic, normocephalic, normal inspection Eye exam: Present: normal appearance, PERRL, EOMI. Absent: scleral icterus, conjunctival injection, periorbital swelling ENT exam: Present: normal exam, mucous membranes moist Neck exam: Present: normal inspection. Absent: tenderness, meningismus, lymphadenopathy Respiratory exam: Present: normal lung sounds bilaterally. Absent: respiratory distress, wheezes, rales, rhonchi, stridor Cardiovascular Exam: Present: regular rate, normal rhythm, normal heart sounds. Absent: systolic murmur, diastolic murmur, rubs, gallop, clicks GI/Abdominal exam: Present: soft, normal bowel sounds. Absent: distended, tenderness, guarding, rebound, rigid Extremities exam: Present: normal inspection, full ROM, normal capillary refill. Absent: tenderness, pedal edema, joint swelling, calf tenderness Back exam: Present: normal inspection Neurological exam: Present: alert, oriented X3, CN II-XII intact Psychiatric exam: Present: normal affect, normal mood Skin exam: Present: warm, dry, intact, normal color. Absent: rash <Mary Gama - Last Filed: 04/27/24 23:23> - General Exam Comments Initial Comments: Visual Physical Exam Vital signs reviewed General: Well-appearing, nontoxic, no acute distress. Head: Normocephalic, atraumatic Eyes: PERRLA, EOMI ENT: Airway patent Chest: Nonlabored breathing Skin: No visual rash, normal skin tone Neuro: Alert and oriented 3 Musculoskeletal: No gross abnormalities (April Cabral) Course Vital Signs 04/27/24 04/27/24 04/27/24 09:03 12:28 15:00 Temperature 97.7 F Pulse Rate 74 61 62 Respiratory 20 16 16 Rate Blood Pressure 118/83 127/68 130/87 O2 Sat by Pulse 99 97 98 Oximetry 04/27/24 17:44 Temperature Pulse Rate 63 Respiratory 20 Rate Blood Pressure 134/82 O2 Sat by Pulse 98 Oximetry Medical Decision Making <April Cabral - Last Filed: 04/27/24 09:38> - Lab Data Result diagrams: 04/27/24 12:13 04/27/24 12:40 <Mary Gama - Last Filed: 04/27/24 23:23> - Medical Decision Making I performed the quick note portion of this chart. Electronically signed by April Cabral PA-C (April Cabral) Was pt. sent in by a medical professional or institution (KAPIL Hodge, PREPRESS MANAGER, urgent care, hospital, or intermediate...) When possible be specific @ -No Did you speak to anyone other than the patient for history (EMS, parent, family, police, friend...)? What history was obtained from this source @ -No Did you review nursing and triage notes (agree or disagree)? Why? @ -I reviewed and agree with nursing and triage notes Were old charts reviewed (outside hosp., previous admission, EMS record, old EKG, old radiological studies, urgent care reports/EKG's, intermediate records)? Report findings @ -No old charts were reviewed Differential Diagnosis (chest pain, altered mental status, abdominal pain women, abdominal pain men, vaginal bleeding, weakness, fever, dyspnea, syncope, headache, dizziness, GI bleed, back pain, seizure, CVA, palpatations, mental health, musculoskeletal)? @ -Differential Headache: Migraine, tension, cluster, carbon monoxide, central venous thrombosis, pension karma temporal arteritis, acute closure glaucoma, intercranial hemorrhage, mastoiditis, sinusitis, head injury, this is not meant to be an all-inclusive list. EKG interpreted by me (3pts min.). @ -Not done X-rays interpreted by me (1pt min.). @ -Yes and demonstrates appropriate catheter placement CT interpreted by me (1pt min.). @ -Yes and demonstrates no hydrocephalus U/S interpreted by me (1pt. min.). @ -None done What testing was considered but not performed or refused? (CT, X-rays, U/S, labs)? Why? @ -None What meds were considered but not given or refused? Why? @ -None Did you discuss the management of the patient with other professionals (professionals i.e. , PA, PREPRESS MANAGER, lab, RT, psych nurse, social work therapist, wool washing machine operator, teacher, registration officer, case folder)? Give summary @ -I discussed the case with Dr. Zaragoza who is the patient's neurosurgeon. She would like me to provide the patient with migraine cocktail and something to help her move her bowels. Patient is to follow-up in her office Was smoking cessation discussed for >3mins.? @ -No Was critical care preformed (if so, how long)? @ -No Were there social determinants of health that impacted care today? How? (Homelessness, low income, unemployed, alcoholism, drug addiction, transportation, low edu. Level, literacy, decrease access to med. care, longterm, rehab)? @ -No Was there de-escalation of care discussed even if they declined (Discuss DNR or withdrawal of care, Hospice)? DNR status @ -No What co-morbidities impacted this encounter? (DM, HTN, Smoking, COPD, CAD, Cancer, CVA, ARF, Chemo, Hep., AIDS, mental health diagnosis, sleep apnea, morbid obesity)? @ -Chiari malformation Was patient admitted / discharged? Hospital course, mention meds given and route, prescriptions, significant lab abnormalities, going to OR and other pertinent info. @ -Upon arrival patient seen and evaluated in hallway 20. Thorough history and physical exam was performed. No focal neurologic deficits. IV was established. Laboratory studies are conducted. CT and shunt study was performed. Results are discussed with the patient. I did call and speak with the patient's neurosurgeon. She states that the patient frequently will have symptoms like this due to constipation. She recommends that the patient be given medications to help her move her bowels. Admits to a component of migraines. States that she would benefit from a migraine cocktail. I discussed this with the patient. She was agreeable to these treatment options. Patient be discharged home instructed follow-up with Dr. Zaragoza in office. Patient was agreeable to this and discharged in stable condition Undiagnosed new problem with uncertain prognosis? @ -No Drug Therapy requiring intensive monitoring for toxicity (Heparin, Nitro, Insulin, Cardizem)? @ -No Were any procedures done? @ -No Diagnosis/symptom? @ -Acute right sided facial paresthesias, history of Chiari malformation with shunt placement Acute, or Chronic, or Acute on Chronic? @ -Acute on chronic Uncomplicated (without systemic symptoms) or Complicated (systemic symptoms)? @ -Complicated Side effects of treatment? @ -No Exacerbation, Progression, or Severe Exacerbation? @ -No Poses a threat to life or bodily function? How? (Chest pain, [place], HI, pneumonia, PE, COPD, DKA, ARF, appy, cholecystitis, CVA, Diverticulitis, Homicidal, Suicidal, threat to staff... and all critical care pts) @ -No (Mary Gama) - Lab Data Lab Results 04/27/24 04/27/24 Range/Units 12:13 12:40 WBC 4.9 (3.8-10.6) k/uL RBC 5.27 (3.80-5.40) m/uL Hgb 14.5 (11.4-16.0) gm/dL Hct 44.1 (34.0-46.0) % MCV 83.8 (80.0-100.0) fL MCH 27.6 (25.0-35.0) pg MCHC 33.0 (31.0-37.0) g/dL RDW 13.6 (11.5-15.5) % Plt Count 289 (150-450) k/uL MPV 7.2 Neutrophils % 53 % Lymphocytes % 36 % Monocytes % 6 % Eosinophils % 2 % Basophils % 1 % Neutrophils # 2.6 (1.3-7.7) k/uL Lymphocytes # 1.8 (1.0-4.8) k/uL Monocytes # 0.3 (0-1.0) k/uL Eosinophils # 0.1 (0-0.7) k/uL Basophils # 0.0 (0-0.2) k/uL Sodium 137 (137-145) mmol/L Potassium 5.0 (3.5-5.1) mmol/L Chloride 110 H (98-107) mmol/L Carbon Dioxide 22 (22-30) mmol/L Anion Gap 5 mmol/L BUN 15 (7-17) mg/dL Creatinine 0.77 (0.52-1.04) mg/dL Est GFR (CKD-EPI)AfAm >90 (>60 ml/min/1.73 sqM) Est GFR (CKD-EPI)NonAf >90 (>60 ml/min/1.73 sqM) Glucose 86 (74-99) mg/dL Calcium 8.4 (8.4-10.2) mg/dL Total Bilirubin 1.4 H (0.2-1.3) mg/dL AST 28 (14-36) U/L ALT 21 (4-34) U/L Alkaline Phosphatase 98 (38-126) U/L Total Protein 6.2 L (6.3-8.2) g/dL Albumin 3.9 (3.5-5.0) g/dL Disposition <April Cabral - Last Filed: 04/27/24 09:38> Is patient prescribed a controlled substance at d/c from ED?: No Time of Disposition: 15:21 <Mary Gama - Last Filed: 04/27/24 23:23> Clinical Impression: Migraine, History of brain shunt, Constipation Disposition: HOME SELF-CARE Condition: Stable Instructions (If sedation given, give patient instructions): Migraine Headache (ED) Additional Instructions: Take the magnesium citrate at home. Call to make an appointment with Dr. Zaragoza. Return for any new or worsening symptoms Referrals: Demarcus Osorio MD [Primary Care Provider] - 1-2 days
--- NOTE | 2024-04-27 10:35 | CT ---
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 Automated Exposure Control for Dose Reduction was Utilized. TECHNIQUE: CT scan of the head is performed without contrast. Findings: There is no change in the position of the shunt catheter that enters the right frontal lobe and termi nates in the left lateral ventricle. There is no hydrocephalus. There is no mass effect or shift of midline structures. No abnormal density is seen throughout the brain parenchyma. There is no change in the entrance of the occipital craniotomy. Intraorbital contents are normal and symmetric. The visualized paranasal sinuses and mastoid air cell s are well aerated. IMPRESSION: 1. Stable ventricular system and ventricular shunt catheter. 2. No acute bleed or mass effect. [facility], Workstation: [facility]ATA 04/27/2024 10:33 AM
[2024-04-27 12:17] LABS: Basophils % (A) 1 %; Eosinophils # (A) 0.1 k/uL (0-0.7); Eosinophils % (A) 2 %; HCT 44.1 % (34.0-46.0); HGB 14.5 gm/dL (11.4-16.0); Lymphocytes # (A) 1.8 k/uL (1.0-4.8); Lymphocytes % (A) 36 %; MCH 27.6 pg (25.0-35.0); MCV 83.8 fL (80.0-100.0); Mean Platelet Volume 7.2; Monocytes # (A) 0.3 k/uL (0-1.0); Monocytes % (A) 6 %; Neutrophils # (A) 2.6 k/uL (1.3-7.7); Neutrophils % (A) 53 %; Platelet Count 289 k/uL (150-450); RBC 5.27 m/uL (3.80-5.40); RDW 13.6 % (11.5-15.5); WBC 4.9 k/uL (3.8-10.6)
[2024-04-27] MEDS: ONDANSETRON 4 MG/2 ML VIAL IVP STA (12:35)
[2024-04-27] MEDS: MORPHINE SULFATE 4 MG/ML SYRINGE IVP STA (12:36)
[2024-04-27 12:56] LABS: ALT 21 U/L (4-34); AST 28 U/L (14-36); African American GFR (CKD) >90 (>60 ml/min/1.73 sqM); Albumin 3.9 g/dL (3.5-5.0); Alkaline Phosphatase 98 U/L (38-126); Anion Gap 5 mmol/L; Blood Urea Nitrogen 15 mg/dL (7-17); Calcium 8.4 mg/dL (8.4-10.2); Carbon Dioxide 22 mmol/L (22-30); Chloride 110 mmol/L (98-107); Glucose 86 mg/dL (74-99); Non-African American GFR(CKD) >90 (>60 ml/min/1.73 sqM); Sodium 137 mmol/L (137-145); Total Bilirubin 1.4 mg/dL (0.2-1.3); Total Protein 6.2 g/dL (6.3-8.2)
--- NOTE | 2024-04-27 13:08 | XR ---
EXAMINATION TYPE: XR chest 1V DATE OF EXAM: 04/27/2024 COMPARISON: NONE HISTORY: Shunt study TECHNIQUE: Single frontal view of the chest is obtained. FINDINGS: There is no focal air space opacity, pleural effusion, or pneumothorax seen. The cardiac silhouette size is within normal limits. The osseous structures are intact. INSET CUTTER shunt catheter seen extending from the neck into the abdomen. IMPRESSION: No acute process. [facility], , 04/27/2024 1:05 PM
--- NOTE | 2024-04-27 13:13 | XR ---
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 The bowel gas pattern is nonspecific. Lung bases are clear. FURNACE WORKER s foster catheter seen with a catheter coiled in the abdomen and pelvis in the tip of the catheter at the level the S1 level on the right. Hypertrophic arthropathy of the right hip and postsurgical change l eft hip. IMPRESSION: 1. FURNACE WORKER shunt catheter seen with the tip coiled overlying the right sacrum.. [facility], , 04/27/2024 1:11 PM
--- NOTE | 2024-04-27 13:16 | XR ---
EXAMINATION TYPE: XR skull limited DATE OF EXAM: 04/27/2024 COMPARISON: NONE HISTORY: Pain TECHNIQUE: 2 views submitted FINDINGS: HYDROELECTRIC PLANT TECHNICIAN shunt catheter is seen overlying the right parietal bone extending to the midline. Dista l margin the catheter extends across the neck. Osseous structures are otherwise intact. Degenerative changes involving the mid and lower cervical spine. IMPRESSION: HYDROELECTRIC PLANT TECHNICIAN shunt catheter. [facility], , 04/27/2024 1:14 PM
[2024-04-27] MEDS: SODIUM CHLORIDE 0.9% 1,000 ML IV STA (15:34)
[2024-04-27] MEDS: DEXAMETHASONE SOD PHOSPHATE 10 MG/ML 1 ML VIAL IVP STA (15:35)
[2024-04-27] MEDS: diphenhydrAMINE 50 MG/ML 1 ML VIAL IVP STA (15:36)
[2024-04-27] MEDS: MAGNESIUM SULFATE-D5W PMX 1 GM in DEXTROSE/WATER 1 100ML.BAG IVPB ONE (15:37)
[2024-04-27] MEDS: MAGNESIUM CITRATE 296 ML BOTTLE PO ONE (15:55)
[2024-04-27 17:46] VITALS: BP 134/82; PULSE 63; RESP 20
== END 2024-04-27 17:45 | disposition home or self-care (01) ==
LOC: EC 08:55
CPT/HCPCS: 36415; 70250; 70450; 71045; 74018; 80053; 85025; 96365; 96366; 96375; 99285

== ENCOUNTER → 2024-07-30 | Outpatient (CLI) | payer MEDICARE, OTHER ==
--- NOTE | 2024-07-30 16:36 | MM ---
Reason for Exam: Screening (asymptomatic). Last mammogram was performed 1 year(s) and 3 month(s) ago. Patient History: Menarche at age 13. First Full-Term at age 19. Hysterectomy at age 40. Patient has history of breast feeding. Patient used Hormonal Contraceptives for 2 years. Paternal grandmother had breast cancer, age 50. Maternal aunt had breast cancer, age 45. Risk Values: Marge 5 year model risk: 0.5%. NCI Lifetime model risk: 7.1%. Prior Study Comparison: 02/25/2022 Bilateral Screening Mammogram, [facility]. 05/10/2023 Bilateral MG 3D screening mammo w/cad, [facility]. Tissue Density: There are scattered areas of fibroglandular density. Findings: Analyzed By CAD. There is no suspicious group of microcalcifications or new suspicious mass in either breast. Overall Assessment: Negative, BI-RAD 1 Management: Screening Mammogram of both breasts in 1 year. Patient should continue monthly self-breast exams. A clinical breast exam by your physician is recommended on an annual basis. This exam should not preclude additional follow-up of suspicious palpable abnormalities. Note on Marge scores and lifetime risk: 1. A Marge score greater than 3% is considered moderate risk. If this is the case, consider specialist referral to assess eligibility for a risk reducing agent. 2. If overall lifetime risk for the development of breast cancer is 20% or higher, the patient may qualify for future screening with alternating mammogram and breast MRI. [facility], , 07/30/2024 4:33 PM. Electronically signed and approved by: Janae Garcia M.D. Radiologist
== END | disposition home or self-care (01) ==
LOC: RADMAMWWP 14:19
PROVIDERS: ATTEND Internal Medicine
DX: Z12.31 Encounter for screening mammogram for malignant neoplasm of breast (principal); Z80.3 Family history of malignant neoplasm of breast; R92.323 Mammographic fibroglandular density, bilateral breasts
CPT/HCPCS: 77063; 77067

== ENCOUNTER 2024-09-13 08:12 | Emergency (ER) | payer MEDICARE, OTHER ==
[2024-09-13] MEDS: SODIUM CHLORIDE 0.9% 1,000 ML IV STA (08:52)
[2024-09-13] MEDS: HYDROmorphone 1 MG/ML 1 ML SYRINGE IVP STA ×2 (08:53→10:42)
[2024-09-13] MEDS: ONDANSETRON 4 MG/2 ML VIAL IVP STA (08:53)
[2024-09-13 09:03] LABS: Basophils % (A) 1 %; Eosinophils # (A) 0.2 k/uL (0-0.7); Eosinophils % (A) 3 %; HCT 37.5 % (34.0-46.0); HGB 12.5 gm/dL (11.4-16.0); Lymphocytes # (A) 1.7 k/uL (1.0-4.8); Lymphocytes % (A) 34 %; MCH 28.4 pg (25.0-35.0); MCHC 33.3 g/dL (31.0-37.0); MCV 85.2 fL (80.0-100.0); Monocytes # (A) 0.4 k/uL (0-1.0); Monocytes % (A) 8 %; Neutrophils # (A) 2.6 k/uL (1.3-7.7); Neutrophils % (A) 53 %; Platelet Count 224 k/uL (150-450); RDW 13.9 % (11.5-15.5); WBC 4.9 k/uL (3.8-10.6)
--- NOTE | 2024-09-13 09:09 | ED ---
Abdominal Pain HPI - General Chief Complaint: Abdominal Pain Stated Complaint: abd pain, vomiting, fever Time Seen by Provider: 09/13/24 08:17 Source: patient, RN notes reviewed Mode of arrival: ambulatory Limitations: no limitations - History of Present Illness Initial Comments: This is a 44-year-old female who presents to the emergency department for a bdominal pain. Patient reports right upper quadrant pain for the last 4 days. Pain is relatively constant. She has associated nausea and vomiting. States that she had a fever yesterday and today of 102 F. She took 800 mg of ibuprofen before arrival. She does have some radiation of pain into her back. Reports a history of pancreatitis and states that pain feels similar. However, she denies any left-sided pain at this time. Reports some diarrhea, however she attributes this to Linzess. MD Complaint: abdominal pain - Related Data Home Medications Medication Instructions Recorded Confirmed Montelukast Sodium [Singulair] 10 mg PO DAILY 08/13/18 04/04/24 Dicyclomine [Bentyl] 10 mg PO QID PRN 02/17/21 04/04/24 Famotidine [Pepcid] 20 mg PO BID 02/17/21 04/04/24 Rimegepant Sulfate [Nurtec Odt] 75 mg PO DAILY PRN 02/17/21 04/04/24 Erenumab-Aooe [Aimovig 140 mg SQ Q28D 08/04/21 04/04/24 Autoinjector] Metoprolol Tartrate [Lopressor] 25 mg PO DAILY 10/21/22 04/04/24 clonazePAM 2 mg PO HS 10/21/22 04/04/24 medroxyPROGESTERone [Depo-Provera] 150 mg IM Q84D 10/21/22 04/04/24 Aspirin EC [Ecotrin Low Dose] 81 mg PO DAILY 11/22/22 04/04/24 Nitroglycerin Sl Tabs [Nitrostat] 0.4 mg SL Q5M PRN 11/22/22 04/04/24 Oxybutynin ER [Ditropan XL] 15 mg PO HS 11/22/22 04/04/24 diphenhydrAMINE HCL [Benadryl] 25 mg PO HS 11/22/22 04/04/24 Cholecalciferol [Vitamin D3 (25 25 mcg PO DAILY 01/25/23 04/04/24 Mcg = 1000 Iu)] Atorvastatin [Lipitor] 40 mg PO DAILY 08/05/23 04/04/24 Lisdexamfetamine Dimesylate 60 mg PO DAILY 08/05/23 04/04/24 [Vyvanse] Nystatin 100,000 Unit/ml Susp 500,000 unit PO QID 08/05/23 04/04/24 [Mycostatin Oral Susp] Pantoprazole [Protonix] 80 mg PO DAILY 08/05/23 04/04/24 Zolpidem Tartrate [Ambien] 5 mg PO HS 08/05/23 04/04/24 Albuterol Inhaler [Ventolin Hfa 2 puff INHALATION RT-Q6H PRN 10/27/23 04/04/24 Inhaler] Cetirizine HCl [Zyrtec] 10 mg PO DAILY 10/27/23 04/04/24 Escitalopram [Lexapro] 10 mg PO HS 10/27/23 04/04/24 Secukinumab [Cosentyx Sensoready 300 mg SQ Q28D 10/27/23 04/04/24 (2 Pens)] tiZANidine [Zanaflex] 4 mg PO TID PRN 10/27/23 04/04/24 Albuterol Nebulized [Ventolin 2.5 mg INHALATION RT-Q6H PRN 11/11/23 04/04/24 Nebulized] oxyCODONE-APAP 10-325MG [Percocet 1 tab PO Q6H 12/29/23 04/04/24 10-325 mg] Isosorbide Mononitrate ER [Imdur] 15 mg PO DAILY 02/10/24 04/04/24 Morphine Sulfate ER [Ms Contin] 30 mg PO HS 02/10/24 04/04/24 Clindamycin 1% Pads 1 pad TOPICAL BID 04/04/24 04/04/24 Clobetasol Propionate [Clobex 1 applic TOPICAL HS 04/04/24 04/04/24 0.05% Soln] Ezetimibe [Zetia] 10 mg PO DAILY 04/04/24 04/04/24 Hydrocortisone Cream 1 applic TOPICAL HS 04/04/24 04/04/24 [Hydrocortisone 2.5% Cream] Magic 5 ml PO QID PRN 04/04/24 04/04/24 Mouthwash(Maalox,Lidocaine,Benadryl) Naloxone HCl [Narcan] 4 mg NASAL DIRECTED PRN 04/04/24 04/04/24 metroNIDAZOLE 0.75% CREAM 1 applic TOPICAL DAILY 04/04/24 04/04/24 [Metrocream 0.75%] Allergies Allergy/AdvReac Type Severity Reaction Status Date / Time ibuprofen [From Motrin] AdvReac Kidney Verified 09/13/24 08:16 Failure metoclopramide HCl AdvReac Hallucinati Verified 09/13/24 08:16 [From Reglan] ons NSAIDS (Non-Steroidal AdvReac Kidney Verified 09/13/24 08:16 Anti-Inflamma Failure pregabalin [From Lyrica] AdvReac Cough Verified 09/13/24 08:16 prochlorperazine AdvReac Hallucinati Verified 09/13/24 08:16 [From Compazine] ons Review of Systems ROS Statement: Those systems with pertinent positive or pertinent negative responses have been documented in the HPI. ROS Other: All systems not noted in ROS Statement are negative. Past Medical History Past Medical History: Asthma, Chest Pain / Angina, Fibromyalgia, GERD/Reflux, Hyperlipidemia, Liver Disease, Neurologic Disorder, Rheumatoid Arthritis (RA) Additional Past Medical History / Comment(s): PSORIATIC ARTHRITIS. POTS. Chiari malformation with CORE LOADER shunt. Migraines. IBS. Lupus. OCCASIONAL DIZZINESS, IRREGULAR HEART RATE. HX POLYNEPHRITIS. Non-alcoholic fatty liver. History of Any Multi-Drug Resistant Organisms: None Reported Past Surgical History: Bladder Surgery, Hysterectomy, Joint Replacement, Orthopedic Surgery, Tonsillectomy, Tubal Ligation Additional Past Surgical History / Comment(s): Chiari decompression, shunt to brain, brain surgery X5, bladder suspension, bladder lift partial hysterectomy, uterus lift, bilateral carpal tunnel. Past Anesthesia/Blood Transfusion Reactions: No Reported Reaction Past Psychological History: ADD/ADHD, Anxiety, Depression Smoking Status: Never smoker Past Alcohol Use History: None Reported Past Drug Use History: None Reported - Past Family History Mother Family Medical History: No Reported History Father Family Medical History: Unable to Obtain General Exam Limitations: no limitations General appearance: alert, in no apparent distress Head exam: Present: atraumatic, normocephalic, normal inspection Respiratory exam: Present: normal lung sounds bilaterally. Absent: respiratory distress, wheezes, rales, rhonchi, stridor Cardiovascular Exam: Present: regular rate, normal rhythm GI/Abdominal exam: Present: soft, tenderness (Right mid to upper abdomen), no rmal bowel sounds. Absent: distended Neurological exam: Present: alert, oriented X3, CN II-XII intact Psychiatric exam: Present: normal affect, normal mood Skin exam: Present: warm, dry, intact, normal color. Absent: rash Course Vital Signs 09/13/24 09/13/24 08:14 11:23 Temperature 97.9 F 98.2 F Pulse Rate 62 77 Respiratory 20 16 Rate Blood Pressure 173/93 150/89 O2 Sat by Pulse 100 99 Oximetry Medical Decision Making - Medical Decision Making This is a 44-year-old female who presents to the emergency department for abdominal pain. Was pt. sent in by a medical professional or institution? @ -No Did you speak to anyone other than the patient for history? @ -No Did you review nursing and triage notes? @ -Yes, and I agree, it is accurate with regards to the patient's symptoms. Were old charts reviewed? @ -No Differential Diagnosis? @ -Differential Abdominal Pain Women: Appendicitis, Cholecystitis, diverticulosis, ischemic bowel, pancreatitis, hepatitis, UTI, gastroenteritis, AAA, incarcerated hernia, bowel obstruction, constipation, inflammatory bowel, hepatitis, peptic ulcer disease, splenic infarction, perforated viscus, vulvitis, ovarian torsion, PID, kidney stone, placenta abruption, this is not meant to be an all-inclusive list EKG interpreted by me (3pts min.)? @ -Not obtained X-rays interpreted by me (1pt min.)? @ -Not obtained CT interpreted by me (1pt min.)? @ -CT scan of the abdomen and pelvis obtained. My interpretation identifies no bowel wall thickening or free air. U/S interpreted by me (1pt. min.)? @ -Gallbladder ultrasound obtained. My interpretation identifies no cholelithiasis. What testing was considered but not performed? (CT, X-rays, U/S, labs)? Why? @ -None What meds were considered but not given? Why? @ -None Did you discuss the management of the patient with other professionals? @ -No Did you reconcile home meds? @ -No Was smoking cessation discussed for >3mins.? @ -No Was critical care preformed (if so, how long)? @ -No Were there social determinants of health that impacted care today? How? (Homelessness, low income, unemployed, alcoholism, drug addiction, transportation, low edu. Level, literacy, decrease access to med. care, penitentiary, rehab)? @ -No Was there de-escalation of care discussed even if they declined? (Discuss DNR or withdrawal of care, Hospice)? @ -No What co-morbidities impacted this encounter? (DM, HTN, Smoking, COPD, CAD, Cancer, CVA, Hep., AIDS, mental health diagnosis, sleep apnea, morbid obesity)? @ -None Was patient admitted / discharged? @ -Discharged. Lab work unremarkable. Urinalysis negative for signs of infe ction. We started with a gallbladder ultrasound which revealed no acute process. Given the severity of her symptoms we obtained a CT scan of the abdomen and pelvis. This also revealed no acute process. Symptoms were controlled in the emergency department. Advised she discuss a HIDA scan with he r primary care provider for further evaluation of gallbladder function given the location of her pain. Patient has pain and nausea medication at home that she will continue taking as needed. Patient discharged home in stable condition. Case discussed with ED attending Dr. Jones. Return precautions reviewed in depth, the patient is instructed to return to the emergency department with any new, worsening, or concerning symptoms. Patient verbalized understanding. Undiagnosed new problem with uncertain prognosis? @ -None Drug Therapy requiring intensive monitoring for toxicity (Heparin, Nitro, Insulin, Cardizem)? @ -None Were any procedures done? @ -None Diagnosis/symptom? @ -Abdominal pain, nausea and vomiting Acute, or Chronic, or Acute on Chronic? @ -Acute Uncomplicated (without systemic symptoms) or Complicated (systemic symptoms)? @ -Uncomplicated Side effects of treatment? @ -None Exacerbation, Progression, or Severe Exacerbation] @ -Not applicable Poses a threat to life or bodily function? @ -No - Lab Data Result diagrams: 09/13/24 08:54 09/13/24 08:54 Lab Results 09/13/24 09/13/24 09/13/24 Range/Units 08:54 08:54 08:54 WBC 4.9 (3.8-10.6) k/uL RBC 4.40 (3.80-5.40) m/uL Hgb 12.5 (11.4-16.0) gm/dL Hct 37.5 (34.0-46.0) % MCV 85.2 (80.0-100.0) fL MCH 28.4 (25.0-35.0) pg MCHC 33.3 (31.0-37.0) g/dL RDW 13.9 (11.5-15.5) % Plt Count 224 (150-450) k/uL MPV 8.0 Neutrophils % 53 % Lymphocytes % 34 % Monocytes % 8 % Eosinophils % 3 % Basophils % 1 % Neutrophils # 2.6 (1.3-7.7) k/uL Lymphocytes # 1.7 (1.0-4.8) k/uL Monocytes # 0.4 (0-1.0) k/uL Eosinophils # 0.2 (0-0.7) k/uL Basophils # 0.0 (0-0.2) k/uL Sodium 138 (137-145) mmol/L Potassium 4.2 (3.5-5.1) mmol/L Chloride 105 (98-107) mmol/L Carbon Dioxide 25 (22-30) mmol/L Anion Gap 8 mmol/L BUN 19 H (7-17) mg/dL Creatinine 0.76 (0.52-1.04) mg/dL Est GFR (CKD-EPI)AfAm >90 (>60 ml/min/1.73 sqM) Est GFR (CKD-EPI)NonAf >90 (>60 ml/min/1.73 sqM) Glucose 96 (74-99) mg/dL Plasma Lactic Acid Paulino (0.7-2.0) mmol/L Calcium 8.8 (8.4-10.2) mg/dL Total Bilirubin 1.3 (0.2-1.3) mg/dL AST 28 (14-36) U/L ALT 26 (4-34) U/L Alkaline Phosphatase 101 (38-126) U/L Total Protein 6.2 L (6.3-8.2) g/dL Albumin 3.8 (3.5-5.0) g/dL Amylase 56 (30-110) U/L Lipase 164 (23-300) U/L Urine Color Colorless Urine Appearance Clear (Clear) Urine pH 5.5 (5.0-8.0) Ur Specific [place] 1.017 (1.001-1.035) Urine Protein Negative (Negative) Urine Glucose (UA) Negative (Negative) Urine Ketones Negative (Negative) Urine Blood Negative (Negative) Urine Nitrite Negative (Negative) Urine Bilirubin Negative (Negative) Urine Urobilinogen <2.0 (<2.0) mg/dL Ur Leukocyte Esterase Negative (Negative) 09/13/24 Range/Units 08:54 WBC (3.8-10.6) k/uL RBC (3.80-5.40) m/uL Hgb (11.4-16.0) gm/dL Hct (34.0-46.0) % MCV (80.0-100.0) fL MCH (25.0-35.0) pg MCHC (31.0-37.0) g/dL RDW (11.5-15.5) % Plt Count (150-450) k/uL MPV Neutrophils % % Lymphocytes % % Monocytes % % Eosinophils % % Basophils % % Neutrophils # (1.3-7.7) k/uL Lymphocytes # (1.0-4.8) k/uL Monocytes # (0-1.0) k/uL Eosinophils # (0-0.7) k/uL Basophils # (0-0.2) k/uL Sodium (137-145) mmol/L Potassium (3.5-5.1) mmol/L Chloride (98-107) mmol/L Carbon Dioxide (22-30) mmol/L Anion Gap mmol/L BUN (7-17) mg/dL Creatinine (0.52-1.04) mg/dL Est GFR (CKD-EPI)AfAm (>60 ml/min/1.73 sqM) Est GFR (CKD-EPI)NonAf (>60 ml/min/1.73 sqM) Glucose (74-99) mg/dL Plasma Lactic Acid Paulino 1.1 (0.7-2.0) mmol/L Calcium (8.4-10.2) mg/dL Total Bilirubin (0.2-1.3) mg/dL AST (14-36) U/L ALT (4-34) U/L Alkaline Phosphatase (38-126) U/L Total Protein (6.3-8.2) g/dL Albumin (3.5-5.0) g/dL Amylase (30-110) U/L Lipase (23-300) U/L Urine Color Urine Appearance (Clear) Urine pH (5.0-8.0) Ur Specific [place] (1.001-1.035) Urine Protein (Negative) Urine Glucose (UA) (Negative) Urine Ketones (Negative) Urine Blood (Negative) Urine Nitrite (Negative) Urine Bilirubin (Negative) Urine Urobilinogen (<2.0) mg/dL Ur Leukocyte Esterase (Negative) - Radiology Data Radiology results: report reviewed, image reviewed Disposition Clinical Impression: Abdominal pain, Nausea and vomiting Disposition: HOME SELF-CARE Instructions (If sedation given, give patient instructions): Abdominal Pain (ED) Additional Instructions: Return to the emergency department with any new, worsening, or concerning symptoms. Discuss a HIDA scan with your primary care provider to look at your gallbladder function. Follow up with your primary care provider in 1-2 days. Is patient prescribed a controlled substance at d/c from ED?: No Referrals: Demarcus Osorio MD [Primary Care Provider] - 1-2 days Time of Disposition: 11:14
--- NOTE | 2024-09-13 09:28 | US ---
EXAMINATION TYPE: US gallbladder DATE OF EXAM: 09/13/2024 COMPARISON: US & CT CLINICAL INDICATION: Female, 44 years old with history of RUQ pain; Pt states RUQ pain TECHNIQUE: Grayscale and color Doppler imaging of the right upper quadrant was performed. 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 No evidence for acute process. 2. Hepatic steatosis. [facility], , 09/13/2024 9:25 AM
[2024-09-13 09:36] LABS: ALT 26 U/L (4-34); AST 28 U/L (14-36); African American GFR (CKD) >90 (>60 ml/min/1.73 sqM); Albumin 3.8 g/dL (3.5-5.0); Alkaline Phosphatase 101 U/L (38-126); Amylase 56 U/L (30-110); Anion Gap 8 mmol/L; Blood Urea Nitrogen 19 mg/dL (7-17); Calcium 8.8 mg/dL (8.4-10.2); Carbon Dioxide 25 mmol/L (22-30); Chloride 105 mmol/L (98-107); Glucose 96 mg/dL (74-99); Lipase 164 U/L (23-300); Non-African American GFR(CKD) >90 (>60 ml/min/1.73 sqM); Potassium 4.2 mmol/L (3.5-5.1); Sodium 138 mmol/L (137-145); Total Bilirubin 1.3 mg/dL (0.2-1.3); Total Protein 6.2 g/dL (6.3-8.2)
[2024-09-13 09:42] LABS: Appearance,Urine Clear (Clear); Bilirubin,Urine Negative (Negative); Blood,Urine Negative (Negative); Color,Urine Colorless; Glucose,Urine (UA) Negative (Negative); Ketones,Urine Negative (Negative); Leukocyte Esterase,Urine Negative (Negative); Nitrite,Urine Negative (Negative); PH, Urine 5.5 (5.0-8.0); Protein,Urine Negative (Negative); Specific Gravity,Urine 1.017 (1.001-1.035); Urobilinogen,Urine <2.0 mg/dL (<2.0)
--- NOTE | 2024-09-13 10:19 | CT ---
EXAMINATION TYPE: CT abdomen pelvis w con CT DLP: 1673 mGycm, Automated exposure control for dose reduction was used. DATE OF EXAM: 09/13/2024 10:05 AM COMPARISON: Gallbladder ultrasound 09/13/2024, CT abdomen and pelvis 12/29/2023 CLINICAL INDICATION:Female, 44 years old with history of Right sided abdominal pain; RT sided abdomin al pain with fever, nausea and vomiting. TECHNIQUE: Standard CT of the abdomen and pelvis following the administration of 100 cc of Isovue 3 00 IV contrast material. Coronal and sagittal reformats were performed. FINDINGS: LOWER CHEST: Unremarkable ABDOMEN LIVER: Unremarkable GALLBLADDER AND BILE DUCTS: Unremarkable. PANCREAS: Unremarkable. SPLEEN: Unremarkable. ADRENAL GLANDS: Unremarkable. KIDNEYS AND URETERS: No evidence of hydronephrosis or renal calculus. The kidneys enhance symmetrical ly. Contrast is demonstrated within both collecting systems on the delayed phase. PELVIS BLADDER: Underdistended and limited dilation due to streak artifact from hip prosthesis. REPRODUCTIVE: The uterus is surgically absent. Both ovaries appear unremarkable. ABDOMEN & PELVIS STOMACH AND BOWEL: Stomach and duodenum are unremarkable. The appendix is within normal limits. No fo vielka wall thickening or surrounding inflammatory changes. No evidence of bowel obstruction. PERITONEUM: No evidence of pneumoperitoneum. Trace free fluid in the pelvis. VASCULATURE: No evidence of aortic aneurysm. MUSCULOSKELETAL: No acute osseous abnormalities. Postsurgical changes from left hip arthroplasty. LYMPH NODES: No evidence for lymphadenopathy. SOFT TISSUE/ABDOMINAL WALL: Anterior abdominal and chest wall J[employer] DEVELOPER shunt catheter entering the peritone um at the epigastric region with distal tip terminating in the anterior pelvis. No surrounding fluid collection at the tip. IMPRESSION: 1. No acute abdominal/pelvic process. 2. JAVA JSF DEVELOPER shunt catheter without fluid collection at the tip. [facility], , 09/13/2024 10:17 AM
[2024-09-13] MEDS: droPERidol 5 MG/2 ML VIAL IVP ONE (10:41)
[2024-09-13] MEDS: TRIMETHOBENZAMIDE 100 MG/ML 2 ML VIAL IM STA (10:55)
[2024-09-13 11:24] VITALS: BP 150/89; PULSE 77; RESP 16; TEMP 98.2
== END 2024-09-13 11:25 | disposition home or self-care (01) ==
LOC: EC 08:12
DX: R10.11 Right upper quadrant pain (principal); R11.2 Nausea with vomiting, unspecified
CPT/HCPCS: 36415; 80053; 82150; 83605; 83690; 85025; 81003; 76705; 74177; 99284; 96374; 96375 ×2; 96376; 96361 ×2; J3250; J2405; J1171; Q9967; J1790

== ENCOUNTER 2024-09-16 21:31 | Emergency (ER) | payer MEDICARE, OTHER ==
--- NOTE | 2024-09-16 21:49 | ED ---
Recheck HPI - General Chief Complaint: Abdominal Pain Stated Complaint: abd pain Time Seen by Provider: 09/16/24 21:46 Source: patient, RN notes reviewed, old records reviewed Mode of arrival: ambulatory Limitations: no limitations - History of Present Illness Initial Comments: This is a 44-year-old female to the ER for evaluation abdominal pain. Patient presents with generalized abdominal pain recent ER visit for similar complaints this patient presents today for evaluation of abdominal pain in his right upper quadrant abdominal pain in his epigastric abdominal pain that is worse after she eats and goes to her right shoulder. Positive nausea no vomiting severe pain MD Complaint: other (Worsening abdominal pain) -: days(s) Returns Today for: persistent/worsening pain related to initial visit Symptoms Since Prior Visit: worsening pain Associated Symptoms: abdominal pain Treatments Prior to Arrival: Given Pain Meds on - Related Data Home Medications Medication Instructions Recorded Confirmed Montelukast Sodium [Singulair] 10 mg PO DAILY 08/13/18 04/04/24 Dicyclomine [Bentyl] 10 mg PO QID PRN 02/17/21 04/04/24 Famotidine [Pepcid] 20 mg PO BID 02/17/21 04/04/24 Rimegepant Sulfate [Nurtec Odt] 75 mg PO DAILY PRN 02/17/21 04/04/24 Erenumab-Aooe [Aimovig 140 mg SQ Q28D 08/04/21 04/04/24 Autoinjector] Metoprolol Tartrate [Lopressor] 25 mg PO DAILY 10/21/22 04/04/24 clonazePAM 2 mg PO HS 10/21/22 04/04/24 medroxyPROGESTERone [Depo-Provera] 150 mg IM Q84D 10/21/22 04/04/24 Aspirin EC [Ecotrin Low Dose] 81 mg PO DAILY 11/22/22 04/04/24 Nitroglycerin Sl Tabs [Nitrostat] 0.4 mg SL Q5M PRN 11/22/22 04/04/24 Oxybutynin ER [Ditropan XL] 15 mg PO HS 11/22/22 04/04/24 diphenhydrAMINE HCL [Benadryl] 25 mg PO HS 11/22/22 04/04/24 Cholecalciferol [Vitamin D3 (25 25 mcg PO DAILY 01/25/23 04/04/24 Mcg = 1000 Iu)] Atorvastatin [Lipitor] 40 mg PO DAILY 08/05/23 04/04/24 Lisdexamfetamine Dimesylate 60 mg PO DAILY 08/05/23 04/04/24 [Vyvanse] Nystatin 100,000 Unit/ml Susp 500,000 unit PO QID 08/05/23 04/04/24 [Mycostatin Oral Susp] Pantoprazole [Protonix] 80 mg PO DAILY 08/05/23 04/04/24 Zolpidem Tartrate [Ambien] 5 mg PO HS 08/05/23 04/04/24 Albuterol Inhaler [Ventolin Hfa 2 puff INHALATION RT-Q6H PRN 10/27/23 04/04/24 Inhaler] Cetirizine HCl [Zyrtec] 10 mg PO DAILY 10/27/23 04/04/24 Escitalopram [Lexapro] 10 mg PO HS 10/27/23 04/04/24 Secukinumab [Cosentyx Sensoready 300 mg SQ Q28D 10/27/23 04/04/24 (2 Pens)] tiZANidine [Zanaflex] 4 mg PO TID PRN 10/27/23 04/04/24 Albuterol Nebulized [Ventolin 2.5 mg INHALATION RT-Q6H PRN 11/11/23 04/04/24 Nebulized] oxyCODONE-APAP 10-325MG [Percocet 1 tab PO Q6H 12/29/23 04/04/24 10-325 mg] Isosorbide Mononitrate ER [Imdur] 15 mg PO DAILY 02/10/24 04/04/24 Morphine Sulfate ER [Ms Contin] 30 mg PO HS 02/10/24 04/04/24 Clindamycin 1% Pads 1 pad TOPICAL BID 04/04/24 04/04/24 Clobetasol Propionate [Clobex 1 applic TOPICAL HS 04/04/24 04/04/24 0.05% Soln] Ezetimibe [Zetia] 10 mg PO DAILY 04/04/24 04/04/24 Hydrocortisone Cream 1 applic TOPICAL HS 04/04/24 04/04/24 [Hydrocortisone 2.5% Cream] Magic 5 ml PO QID PRN 04/04/24 04/04/24 Mouthwash(Maalox,Lidocaine,Benadryl) Naloxone HCl [Narcan] 4 mg NASAL DIRECTED PRN 04/04/24 04/04/24 metroNIDAZOLE 0.75% CREAM 1 applic TOPICAL DAILY 04/04/24 04/04/24 [Metrocream 0.75%] Allergies Allergy/AdvReac Type Severity Reaction Status Date / Time ibuprofen [From Motrin] AdvReac Kidney Verified 09/16/24 21:35 Failure metoclopramide HCl AdvReac Hallucinati Verified 09/16/24 21:35 [From Reglan] ons NSAIDS (Non-Steroidal AdvReac Kidney Verified 09/16/24 21:35 Anti-Inflamma Failure pregabalin [From Lyrica] AdvReac Cough Verified 09/16/24 21:35 prochlorperazine AdvReac Hallucinati Verified 09/16/24 21:35 [From Compazine] ons Review of Systems ROS Statement: Those systems with pertinent positive or pertinent negative responses have been documented in the HPI. ROS Other: All systems not noted in ROS Statement are negative. Past Medical History Past Medical History: Asthma, Chest Pain / Angina, Fibromyalgia, GERD/Reflux, Hyperlipidemia, Liver Disease, Neurologic Disorder, Rheumatoid Arthritis (RA) Additional Past Medical History / Comment(s): PSORIATIC ARTHRITIS. POTS. Chiari malformation with LIFESTYLE COORDINATOR shunt. Migraines. IBS. Lupus. OCCASIONAL DIZZINESS, IRREGULAR HEART RATE. HX POLYNEPHRITIS. Non-alcoholic fatty liver. History of Any Multi-Drug Resistant Organisms: None Reported Past Surgical History: Bladder Surgery, Hysterectomy, Joint Replacement, Orthopedic Surgery, Tonsillectomy, Tubal Ligation Additional Past Surgical History / Comment(s): Chiari decompression, shunt to brain, brain surgery X5, bladder suspension, bladder lift partial hysterectomy, uterus lift, bilateral carpal tunnel. Past Anesthesia/Blood Transfusion Reactions: No Reported Reaction Past Psychological History: ADD/ADHD, Anxiety, Depression Smoking Status: Never smoker Past Alcohol Use History: None Reported Past Drug Use History: None Reported - Past Family History Mother Family Medical History: No Reported History Father Family Medical History: Unable to Obtain General Exam Limitations: no limitations General appearance: alert, in no apparent distress Head exam: Present: atraumatic, normocephalic, normal inspection Eye exam: Present: normal appearance, PERRL, EOMI. Absent: scleral icterus, conjunctival injection, periorbital swelling ENT exam: Present: normal exam, mucous membranes moist Neck exam: Present: normal inspection. Absent: tenderness, meningismus, lymphadenopathy Respiratory exam: Present: normal lung sounds bilaterally. Absent: respiratory distress, wheezes, rales, rhonchi, stridor Cardiovascular Exam: Present: regular rate, normal rhythm, normal heart sounds. Absent: systolic murmur, diastolic murmur, rubs, gallop, clicks GI/Abdominal exam: Present: soft, normal bowel sounds. Absent: distended, t enderness, guarding, rebound, rigid Extremities exam: Present: normal inspection, full ROM, normal capillary refill. Absent: tenderness, pedal edema, joint swelling, calf tenderness Back exam: Present: normal inspection Neurological exam: Present: alert, oriented X3, CN II-XII intact Psychiatric exam: Present: normal affect, normal mood Skin exam: Present: warm, dry, intact, normal color. Absent: rash Course Vital Signs 09/16/24 21:32 Temperature 98.5 F Pulse Rate 77 Respiratory 18 Rate Blood Pressure 122/83 O2 Sat by Pulse 100 Oximetry - Reevaluation(s) Reevaluation #1: 09/16/24 21:52 Medical records reviewed prior ER visit for abdominal pain is reviewed including CT scan and ultrasound which were normal lab testing normal History of pancreatitis, history of hysterectomy Reevaluation #4: Was pt. sent in by a medical professional or institution (Dr. PA, [facility], urgent care, hospital, or fdc...) When possible be specific @ -no Did you speak to anyone other than the patient for history (EMS, parent, family, police, friend...)? What history was obtained from this source @ -no Did you review nursing and triage notes (agree or disagree)? Why? @ -agree Are old charts reviewed (outside hosp., previous admission, EMS record, old EKG, old radiological studies, urgent care reports/EKG's, fdc records)? Re port findings @ -yes Differential Diagnosis (chest pain, altered mental status, abdominal pain women, abdominal pain men, vaginal bleeding, weakness, fever, dyspnea, syncope, headache, dizziness, GI bleed, back pain, seizure, CVA, palpatations, mental health, musculoskeletal)? @ -prior EKG interpreted by me (3pts min.). @ -yes X-rays interpreted by me (1pt min.). @ -yes negative for acute disease CT interpreted by me (1pt min.). @ -no U/S interpreted by me (1pt. min.). @ -no What testing was considered but not performed or refused? (CT, X-rays, U/S, labs)? Why? @ -none What meds were considered but not given or refused? Why? @ -none Did you discuss the management of the patient with other professionals (professionals i.e. , PA, [facility], lab, RT, psych nurse, social science analyst, patent engineer, teacher, staff weapons officer, case management coordinator)? Give summary @ -no Was smoking cessation discussed for >3mins.? @ -no Was critical care preformed (if so, how long)? @ -no Were there social determinants of health that impacted care today? How? (Homelessness, low income, unemployed, alcoholism, drug addiction, transportation, low edu. Level, literacy, decrease access to med. care, senior living, rehab)? @ -none Was there de-escalation of care discussed even if they declined (Discuss DNR or withdrawal of care, Hospice)? DNR status @ -no What co-morbidities impacted this encounter? (DM, HTN, Smoking, COPD, CAD, Cancer, CVA, ARF, Chemo, Hep., AIDS, mental health diagnosis, sleep apnea, morbid obesity)? @ -none Was patient admitted / discharged? Hospital course, mention meds given and route, prescriptions, significant lab abnormalities, going to OR and other pertinent info. @ - Undiagnosed new problem with uncertain prognosis? @ -no Drug Therapy requiring intensive monitoring for toxicity (Heparin, Nitro, Insulin, Cardizem)? @ -no Were any procedures done? @ -no Diagnosis/symptom? @ - Acute, or Chronic, or Acute on Chronic? @ -Acute Uncomplicated (without systemic symptoms) or Complicated (systemic symptoms)? @ -Complicated Side effects of treatment? @ -no Exacerbation, Progression, or Severe Exacerbation? @ -exacerbation Poses a threat to life or bodily function? How? (Chest pain, USA, MD, pneumonia, PE, COPD, DKA, ARF, appy, cholecystitis, CVA, Diverticulitis, Homicidal, Suicidal, threat to staff... and all critical care pts) @ -yes Reevaluation #5: Differential Abdominal Pain Women: Appendicitis, Cholecystitis, diverticulosis, ischemic bowel, pancreatitis, hepatitis, UTI, gastroenteritis, AAA, incarcerated hernia, bowel obstruction, constipation, inflammatory bowel, hepatitis, peptic ulcer disease, splenic infarction, perforated viscus, vulvitis, ovarian torsion, PID, kidney stone, placenta abruption, this is not meant to be an all-inclusive list Medical Decision Making - Lab Data Result diagrams: 09/16/24 21:59 09/16/24 21:59 Lab Results 09/16/24 09/16/24 09/16/24 Range/Units 21:59 21:59 21:59 WBC 5.2 (3.8-10.6) k/uL RBC 5.15 (3.80-5.40) m/uL Hgb 14.4 (11.4-16.0) gm/dL Hct 43.6 (34.0-46.0) % MCV 84.7 (80.0-100.0) fL MCH 28.0 (25.0-35.0) pg MCHC 33.1 (31.0-37.0) g/dL RDW 13.7 (11.5-15.5) % Plt Count 244 (150-450) k/uL MPV 7.3 Neutrophils % 61 % Lymphocytes % 31 % Monocytes % 5 % Eosinophils % 2 % Basophils % 0 % Neutrophils # 3.2 (1.3-7.7) k/uL Lymphocytes # 1.6 (1.0-4.8) k/uL Monocytes # 0.3 (0-1.0) k/uL Eosinophils # 0.1 (0-0.7) k/uL Basophils # 0.0 (0-0.2) k/uL Sodium 137 (137-145) mmol/L Potassium 4.1 (3.5-5.1) mmol/L Chloride 104 (98-107) mmol/L Carbon Dioxide 22 (22-30) mmol/L Anion Gap 11 mmol/L BUN 18 H (7-17) mg/dL Creatinine 0.90 (0.52-1.04) mg/dL Est GFR (CKD-EPI)AfAm >90 (>60 ml/min/1.73 sqM) Est GFR (CKD-EPI)NonAf 79 (>60 ml/min/1.73 sqM) Glucose 87 (74-99) mg/dL Plasma Lactic Acid Paulino 1.1 (0.7-2.0) mmol/L Calcium 9.6 (8.4-10.2) mg/dL Phosphorus 4.7 H (2.5-4.5) mg/dL Magnesium 1.7 (1.6-2.3) mg/dL Total Bilirubin 2.3 H (0.2-1.3) mg/dL AST 28 (14-36) U/L ALT 24 (4-34) U/L Alkaline Phosphatase 119 (38-126) U/L Total Protein 7.2 (6.3-8.2) g/dL Albumin 4.6 (3.5-5.0) g/dL Amylase 65 (30-110) U/L Lipase 175 (23-300) U/L Urine Color Urine Appearance (Clear) Urine pH (5.0-8.0) Ur Specific [place] (1.001-1.035) Urine Protein (Negative) Urine Glucose (UA) (Negative) Urine Ketones (Negative) Urine Blood (Negative) Urine Nitrite (Negative) Urine Bilirubin (Negative) Urine Urobilinogen (<2.0) mg/dL Ur Leukocyte Esterase (Negative) 09/16/24 Range/Units 22:44 WBC (3.8-10.6) k/uL RBC (3.80-5.40) m/uL Hgb (11.4-16.0) gm/dL Hct (34.0-46.0) % MCV (80.0-100.0) fL MCH (25.0-35.0) pg MCHC (31.0-37.0) g/dL RDW (11.5-15.5) % Plt Count (150-450) k/uL MPV Neutrophils % % Lymphocytes % % Monocytes % % Eosinophils % % Basophils % % Neutrophils # (1.3-7.7) k/uL Lymphocytes # (1.0-4.8) k/uL Monocytes # (0-1.0) k/uL Eosinophils # (0-0.7) k/uL Basophils # (0-0.2) k/uL Sodium (137-145) mmol/L Potassium (3.5-5.1) mmol/L Chloride (98-107) mmol/L Carbon Dioxide (22-30) mmol/L Anion Gap mmol/L BUN (7-17) mg/dL Creatinine (0.52-1.04) mg/dL Est GFR (CKD-EPI)AfAm (>60 ml/min/1.73 sqM) Est GFR (CKD-EPI)NonAf (>60 ml/min/1.73 sqM) Glucose (74-99) mg/dL Plasma Lactic Acid Paulino (0.7-2.0) mmol/L Calcium (8.4-10.2) mg/dL Phosphorus (2.5-4.5) mg/dL Magnesium (1.6-2.3) mg/dL Total Bilirubin (0.2-1.3) mg/dL AST (14-36) U/L ALT (4-34) U/L Alkaline Phosphatase (38-126) U/L Total Protein (6.3-8.2) g/dL Albumin (3.5-5.0) g/dL Amylase (30-110) U/L Lipase (23-300) U/L Urine Color Light Yellow Urine Appearance Clear (Clear) Urine pH 5.5 (5.0-8.0) Ur Specific [place] 1.021 (1.001-1.035) Urine Protein Negative (Negative) Urine Glucose (UA) Negative (Negative) Urine Ketones Negative (Negative) Urine Blood Negative (Negative) Urine Nitrite Negative (Negative) Urine Bilirubin Negative (Negative) Urine Urobilinogen <2.0 (<2.0) mg/dL Ur Leukocyte Esterase Negative (Negative) - EKG Data -: EKG Interpreted by Me (EKG is sinus 75 MS 137 QRS 32 QTc 414) Disposition Clinical Impression: Elevated bilirubin, Abdominal pain, Biliary colic Disposition: HOME SELF-CARE Condition: Good Instructions (If sedation given, give patient instructions): Biliary Colic (ED) Is patient prescribed a controlled substance at d/c from ED?: No Referrals: Demarcus Osorio MD [Primary Care Provider] - 1-2 days Ivan Galdamez DO [Medical Doctor] - 1-2 days Time of Disposition: 00:00
[2024-09-16] MEDS: SODIUM CHLORIDE 0.9% 1,000 ML IV ONE (22:03)
[2024-09-16] MEDS: MORPHINE SULFATE 4 MG/ML SYRINGE IVP STA (22:03)
[2024-09-16] MEDS: ONDANSETRON ODT 8 MG TAB.RAPDIS PO STA (22:11)
[2024-09-16] MEDS: ONDANSETRON 4 MG/2 ML VIAL IVP STA (22:11)
[2024-09-16 22:56] LABS: Appearance,Urine Clear (Clear); Bilirubin,Urine Negative (Negative); Blood,Urine Negative (Negative); Color,Urine Light Yellow; Glucose,Urine (UA) Negative (Negative); Ketones,Urine Negative (Negative); Leukocyte Esterase,Urine Negative (Negative); Nitrite,Urine Negative (Negative); PH, Urine 5.5 (5.0-8.0); Protein,Urine Negative (Negative); Specific Gravity,Urine 1.021 (1.001-1.035); Urobilinogen,Urine <2.0 mg/dL (<2.0)
[2024-09-16 23:04] LABS: Basophils % (A) 0 %; Eosinophils # (A) 0.1 k/uL (0-0.7); Eosinophils % (A) 2 %; HCT 43.6 % (34.0-46.0); HGB 14.4 gm/dL (11.4-16.0); Lymphocytes # (A) 1.6 k/uL (1.0-4.8); Lymphocytes % (A) 31 %; MCHC 33.1 g/dL (31.0-37.0); MCV 84.7 fL (80.0-100.0); Mean Platelet Volume 7.3; Monocytes # (A) 0.3 k/uL (0-1.0); Monocytes % (A) 5 %; Neutrophils # (A) 3.2 k/uL (1.3-7.7); Neutrophils % (A) 61 %; Platelet Count 244 k/uL (150-450); RBC 5.15 m/uL (3.80-5.40); RDW 13.7 % (11.5-15.5); WBC 5.2 k/uL (3.8-10.6)
--- NOTE | 2024-09-16 23:11 | XR ---
EXAM: XR Abdomen, 1 View CLINICAL HISTORY: ITS.REASON XR Reason: abdominal pain TECHNIQUE: Frontal supine view of the abdomen/pelvis. COMPARISON: 04/27/2024. FINDINGS: Gastrointestinal tract: Moderate quantity of stool throughout the colon. No bowel obstruction. Bones/joints: Total left hip prosthesis is noted in place. Osseous structures and soft tissues are unremarkable. No acute fracture. Tubes, lines and devices: SUPERVISOR SOLDERING shunt catheter is noted in place. IMPRESSION: 1. Moderate quantity of stool throughout the colon. 2. Nonspecific bowel gas pattern. 3. No radiopaque renal calculi.
[2024-09-16 23:14] LABS: ALT 24 U/L (4-34); AST 28 U/L (14-36); African American GFR (CKD) >90 (>60 ml/min/1.73 sqM); Albumin 4.6 g/dL (3.5-5.0); Alkaline Phosphatase 119 U/L (38-126); Amylase 65 U/L (30-110); Anion Gap 11 mmol/L; Blood Urea Nitrogen 18 mg/dL (7-17); Calcium 9.6 mg/dL (8.4-10.2); Carbon Dioxide 22 mmol/L (22-30); Chloride 104 mmol/L (98-107); Glucose 87 mg/dL (74-99); Lipase 175 U/L (23-300); Magnesium 1.7 mg/dL (1.6-2.3); Non-African American GFR(CKD) 79 (>60 ml/min/1.73 sqM); Phosphorus 4.7 mg/dL (2.5-4.5); Potassium 4.1 mmol/L (3.5-5.1); Sodium 137 mmol/L (137-145); Total Bilirubin 2.3 mg/dL (0.2-1.3); Total Protein 7.2 g/dL (6.3-8.2)
[2024-09-16] MEDS: HYDROmorphone 1 MG/ML 1 ML SYRINGE IVP STA (23:41)
--- NOTE | 2024-09-17 00:16 | US ---
EXAM: US Abdomen Limited, Gallbladder CLINICAL HISTORY: ITS.REASON US Reason: pain TECHNIQUE: Real-time ultrasound of the right upper quadrant with image documentation. COMPARISON: 09/13/2024. 09/16/2024. FINDINGS: Liver: Liver measures 17.3 cm. Gallbladder: Gallbladder wall measures 0.2 cm in thickness. Negative ultrasound Casillas sign. No gallstones. Common bile duct: Nonvisualization of the common bile duct due to bowel gas. Pancreas: Fatty replaced of the pancreas. Obscuration of the pancreas due to bowel gas. Right kidney: Unremarkable. No stones. No hydronephrosis. Right kidney measures 9.2 x 4.1 x 4.5 cm. IMPRESSION: 1. Common bile duct is not visualized due to bowel gas. 2. The gallbladder is unremarkable. 3. Negative ultrasound Casillas sign. 4. Fatty liver. 5. Fatty replaced of the pancreas.
[2024-09-17] MEDS: ONDANSETRON 4 MG ODT STARTER PACK 2 TAB BTL PO STA (00:34)
[2024-09-17] MEDS: traMADol 50 MG STARTER PACK 3 TAB BTL PO STA (00:34)
[2024-09-17 00:41] VITALS: BP 140/83; PULSE 67; RESP 20; TEMP 98.4
== END 2024-09-17 00:42 | disposition home or self-care (01) ==
LOC: EC 21:31
DX: K80.50 Calculus of bile duct without cholangitis or cholecystitis without obstruction (principal); E80.7 Disorder of bilirubin metabolism, unspecified
CPT/HCPCS: 36415; 80053; 82150; 83605; 83690; 83735; 84100; 85025; 81003; 74018; 76705; 99285; 96374; 96375; 96361; J2270; J2405; J1171

== ENCOUNTER 2024-09-27 08:23 | Emergency (ER) | payer MEDICARE, OTHER ==
[2024-09-27 08:31] VITALS: BP 111/80; PULSE 71; RESP 18; TEMP 97.9
[2024-09-27] MEDS: DEXAMETHASONE SOD PHOSPHATE 10 MG/ML 1 ML VIAL IM STA (08:58)
[2024-09-27] MEDS: HYDROmorphone 1 MG/ML 1 ML SYRINGE IM STA (09:00)
--- NOTE | 2024-09-27 09:00 | ED ---
General Adult HPI - General Chief complaint: Recheck/Abnormal Lab/Rx Stated complaint: Post-op issue Time Seen by Provider: 09/27/24 08:33 Source: patient, RN notes reviewed Mode of arrival: ambulatory Limitations: no limitations - History of Present Illness Initial comments: 44-year-old female presents emergency department with chief complaint of possib le infection, reaction for surgery. Patient states that she had a cholecystectomy by Dr. Owens. Patient has redness around the site she is concerned about possible infection she was placed on Keflex and just finished this the other day. Patient denies any fevers or chills she states it is uncomfortable. - Related Data Home Medications Medication Instructions Recorded Confirmed Montelukast Sodium [Singulair] 10 mg PO DAILY 08/13/18 04/04/24 Dicyclomine [Bentyl] 10 mg PO QID PRN 02/17/21 04/04/24 Famotidine [Pepcid] 20 mg PO BID 02/17/21 04/04/24 Rimegepant Sulfate [Nurtec Odt] 75 mg PO DAILY PRN 02/17/21 04/04/24 Erenumab-Aooe [Aimovig 140 mg SQ Q28D 08/04/21 04/04/24 Autoinjector] Metoprolol Tartrate [Lopressor] 25 mg PO DAILY 10/21/22 04/04/24 clonazePAM 2 mg PO HS 10/21/22 04/04/24 medroxyPROGESTERone [Depo-Provera] 150 mg IM Q84D 10/21/22 04/04/24 Aspirin EC [Ecotrin Low Dose] 81 mg PO DAILY 11/22/22 04/04/24 Nitroglycerin Sl Tabs [Nitrostat] 0.4 mg SL Q5M PRN 11/22/22 04/04/24 Oxybutynin ER [Ditropan XL] 15 mg PO HS 11/22/22 04/04/24 diphenhydrAMINE HCL [Benadryl] 25 mg PO HS 11/22/22 04/04/24 Cholecalciferol [Vitamin D3 (25 25 mcg PO DAILY 01/25/23 04/04/24 Mcg = 1000 Iu)] Atorvastatin [Lipitor] 40 mg PO DAILY 08/05/23 04/04/24 Lisdexamfetamine Dimesylate 60 mg PO DAILY 08/05/23 04/04/24 [Vyvanse] Nystatin 100,000 Unit/ml Susp 500,000 unit PO QID 08/05/23 04/04/24 [Mycostatin Oral Susp] Pantoprazole [Protonix] 80 mg PO DAILY 08/05/23 04/04/24 Zolpidem Tartrate [Ambien] 5 mg PO HS 08/05/23 04/04/24 Albuterol Inhaler [Ventolin Hfa 2 puff INHALATION RT-Q6H PRN 10/27/23 04/04/24 Inhaler] Cetirizine HCl [Zyrtec] 10 mg PO DAILY 10/27/23 04/04/24 Escitalopram [Lexapro] 10 mg PO HS 10/27/23 04/04/24 Secukinumab [Cosentyx Sensoready 300 mg SQ Q28D 10/27/23 04/04/24 (2 Pens)] tiZANidine [Zanaflex] 4 mg PO TID PRN 10/27/23 04/04/24 Albuterol Nebulized [Ventolin 2.5 mg INHALATION RT-Q6H PRN 11/11/23 04/04/24 Nebulized] oxyCODONE-APAP 10-325MG [Percocet 1 tab PO Q6H 12/29/23 04/04/24 10-325 mg] Isosorbide Mononitrate ER [Imdur] 15 mg PO DAILY 02/10/24 04/04/24 Morphine Sulfate ER [Ms Contin] 30 mg PO HS 02/10/24 04/04/24 Clindamycin 1% Pads 1 pad TOPICAL BID 04/04/24 04/04/24 Clobetasol Propionate [Clobex 1 applic TOPICAL HS 04/04/24 04/04/24 0.05% Soln] Ezetimibe [Zetia] 10 mg PO DAILY 04/04/24 04/04/24 Hydrocortisone Cream 1 applic TOPICAL HS 04/04/24 04/04/24 [Hydrocortisone 2.5% Cream] Magic 5 ml PO QID PRN 04/04/24 04/04/24 Mouthwash(Maalox,Lidocaine,Benadryl) Naloxone HCl [Narcan] 4 mg NASAL DIRECTED PRN 04/04/24 04/04/24 metroNIDAZOLE 0.75% CREAM 1 applic TOPICAL DAILY 04/04/24 04/04/24 [Metrocream 0.75%] Previous Rx's Medication Instructions Recorded Sulfamethox-Tmp 800-160Mg [Bactrim 1 each PO Q12HR #14 tab 09/27/24 Ds] Allergies Allergy/AdvReac Type Severity Reaction Status Date / Time ibuprofen [From Motrin] AdvReac Kidney Verified 09/27/24 08:31 Failure metoclopramide HCl AdvReac Hallucinati Verified 09/27/24 08:31 [From Reglan] ons NSAIDS (Non-Steroidal AdvReac Kidney Verified 09/27/24 08:31 Anti-Inflamma Failure pregabalin [From Lyrica] AdvReac Cough Verified 09/27/24 08:31 prochlorperazine AdvReac Hallucinati Verified 09/27/24 08:31 [From Compazine] ons Review of Systems ROS Statement: Those systems with pertinent positive or pertinent negative responses have been documented in the HPI. ROS Other: All systems not noted in ROS Statement are negative. Past Medical History Past Medical History: Asthma, Chest Pain / Angina, Fibromyalgia, GERD/Reflux, Hyperlipidemia, Liver Disease, Neurologic Disorder, Rheumatoid Arthritis (RA) Additional Past Medical History / Comment(s): PSORIATIC ARTHRITIS. POTS. Chiari malformation with [employer]OR DATA [employer]ESSING shunt. Migraines. IBS. Lupus. OCCASIONAL DIZZINESS, IRREGULAR HEART RATE. HX POLYNEPHRITIS. Non-alcoholic fatty liver. History of Any Multi-Drug Resistant Organisms: None Reported Past Surgical History: Bladder Surgery, Hysterectomy, Joint Replacement, O rthopedic Surgery, Tonsillectomy, Tubal Ligation Additional Past Surgical History / Comment(s): Chiari decompression, shunt to brain, brain surgery X5, bladder suspension, bladder lift partial hysterectomy, uterus lift, bilateral carpal tunnel. Past Anesthesia/Blood Transfusion Reactions: No Reported Reaction Past Psychological History: ADD/ADHD, Anxiety, Depression Smoking Status: Never smoker Past Alcohol Use History: None Reported Past Drug Use History: None Reported - Past Family History Mother Family Medical History: No Reported History Father Family Medical History: Unable to Obtain General Exam Limitations: no limitations General appearance: alert, in no apparent distress Head exam: Present: atraumatic, normocephalic, normal inspection Eye exam: Present: normal appearance, PERRL, EOMI. Absent: scleral icterus, conjunctival injection, periorbital swelling ENT exam: Present: normal exam, normal oropharynx, mucous membranes moist Neck exam: Present: normal inspection, full ROM. Absent: tenderness, meningismus, lymphadenopathy Respiratory exam: Present: normal lung sounds bilaterally. Absent: respiratory distress, wheezes, rales, rhonchi, stridor Cardiovascular Exam: Present: regular rate, normal rhythm, normal heart sounds. Absent: systolic murmur, diastolic murmur, rubs, gallop, clicks GI/Abdominal exam: Present: soft, tenderness (Mild ), normal bowel sounds, other (Erythema around all incisions circumferential). Absent: distended, guarding, rebound, rigid Course Vital Signs 09/27/24 08:29 Temperature 97.9 F Pulse Rate 71 Respiratory 18 Rate Blood Pressure 111/80 O2 Sat by Pulse 99 Oximetry Medical Decision Making - Medical Decision Making Was pt. sent in by a medical professional or institution (, PA, [employer], urgent care, hospital, or senior living...) When possible be specific @ -No Did you speak to anyone other than the patient for history (EMS, parent, family, police, friend...)? What history was obtained from this source @ -No Did you review nursing and triage notes (agree or disagree)? Why? @ -I reviewed and agree with nursing and triage notes Were old charts reviewed (outside hosp., previous admission, EMS record, old EKG, old radiological studies, urgent care reports/EKG's, senior living records)? Report findings @ -No old charts were reviewed Differential Diagnosis (chest pain, altered mental status, abdominal pain women, abdominal pain men, vaginal bleeding, weakness, fever, dyspnea, syncope, headache, dizziness, GI bleed, back pain, seizure, CVA, palpatations, mental health, musculoskeletal)? @ -[Allergic reaction contact dermatitis, medication reaction, cellulitis EKG interpreted by me (3pts min.). @ -None X-rays interpreted by me (1pt min.). @ -None done CT interpreted by me (1pt min.). @ -None done U/S interpreted by me (1pt. min.). @ -None done What testing was considered but not performed or refused? (CT, X-rays, U/S, labs)? Why? @ -None What meds were considered but not given or refused? Why? @ -None Did you discuss the management of the patient with other professionals (professionals i.e. , PA, [employer]CTION[employer], lab, RT, psych nurse, social work administrator, glost tile shader, teacher, workplace rehabilitation officer, cyanide case hardener)? Give summary @ -No Was smoking cessation discussed for >3mins.? @ -No Was critical care preformed (if so, how long)? @ -No Were there social determinants of health that impacted care today? How? (Homelessness, low income, unemployed, alcoholism, drug addiction, transportation, low edu. Level, literacy, decrease access to med. care, care home, rehab)? @ -No Was there de-escalation of care discussed even if they declined (Discuss DNR or withdrawal of care, Hospice)? DNR status @ -No What co-morbidities impacted this encounter? (DM, HTN, Smoking, COPD, CAD, Cancer, CVA, ARF, Chemo, Hep., AIDS, mental health diagnosis, sleep apnea, mo rbid obesity)? @ -None Was patient admitted / discharged? Hospital course, mention meds given and route, prescriptions, significant lab abnormalities, going to OR and other pertinent info. @ -Discharge patient has redness around all of her incisions felt more likely related to glue, wrap patient does have concerns for infection patient was given antibiotics, close follow-up patient given steroid advised to use topical creams. Undiagnosed new problem with uncertain prognosis? @ -No Drug Therapy requiring intensive monitoring for toxicity (Heparin, Nitro, Insulin, Cardizem)? @ -No Were any procedures done? @ -No Diagnosis/symptom? @ -Contact dermatitis, wound cellulitis Acute, or Chronic, or Acute on Chronic? @ -Acute Uncomplicated (without systemic symptoms) or Complicated (systemic symptoms)? @ -Uncomplicated Side effects of treatment? @ -No Exacerbation, Progression, or Severe Exacerbation? @ -No Poses a threat to life or bodily function? How? (Chest pain, [place], [place], pneumonia, PE, COPD, DKA, ARF, appy, cholecystitis, CVA, Diverticulitis, Homicidal, Suicidal, threat to staff... and all critical care pts) @ -No Disposition Clinical Impression: Contact dermatitis, Wound cellulitis after surgery Disposition: HOME SELF-CARE Condition: Stable Instructions (If sedation given, give patient instructions): Contact Dermatitis (ED) Additional Instructions: Please return to the Emergency Department if symptoms worsen or any other concerns. Prescriptions: Sulfamethox-Tmp 800-160Mg [Bactrim Ds] 1 each PO Q12HR #14 tab Is patient prescribed a controlled substance at d/c from ED?: No Referrals: Demarcus Osorio MD [Primary Care Provider] - 1-2 days Time of Disposition: 08:55
[2024-09-27] MEDS: ACET/COD 300 MG/30 MG STARTER PACK 6 TAB BTL PO STA (09:07)
== END 2024-09-27 09:06 | disposition home or self-care (01) ==
LOC: EC 08:23
DX: T81.41XA Infection following a procedure, superficial incisional surgical site, initial encounter (principal); L25.9 Unspecified contact dermatitis, unspecified cause; Z88.8 Allergy status to other drugs, medicaments and biological substances; Z88.6 Allergy status to analgesic agent
CPT/HCPCS: 99283; 96372 ×2; J1100; J1171

== ENCOUNTER 2024-10-20 04:30 | Emergency (ER) | payer MEDICARE, OTHER ==
[2024-10-20 04:36] VITALS: RESP 18
[2024-10-20] MEDS: ONDANSETRON 4 MG/2 ML VIAL IVP STA (05:33)
[2024-10-20] MEDS: SODIUM CHLORIDE 0.9% 1,000 ML IV ONE ×2 (05:33→06:46)
[2024-10-20] MEDS: diphenhydrAMINE 50 MG/ML 1 ML VIAL IVP STA (05:33)
[2024-10-20 05:42] LABS: Basophils # (A) 0.02 10*3/uL (0.00-0.10); Basophils % (A) 0.2 %; HCT 39.5 % (37.2-46.3); HGB 13.9 g/dL (12.0-15.0); Lymphocytes # (A) 0.91 10*3/uL (0.90-5.00); Lymphocytes % (A) 8.5 %; MCHC 35.2 g/dL (32.0-37.0); MCV 82.3 fL (80.0-97.0); Mean Platelet Volume 9.6 fL (9.5-12.2); Monocytes # (A) 0.34 10*3/uL (0.20-1.00); Monocytes % (A) 3.2 %; Neutrophils # (A) 9.37 10*3/uL (1.80-7.70); Neutrophils % (A) 87.7 %; Platelet Count 268 10*3/uL (140-440); RDW 12.9 % (11.5-14.5); WBC 10.68 10*3/uL (4.50-10.00)
[2024-10-20 06:13] LABS: AST 33 U/L (14-36); African American GFR (CKD) >90 (>60 ml/min/1.73 sqM); Albumin 4.4 g/dL (3.5-5.0); Alkaline Phosphatase 114 U/L (38-126); Anion Gap 13 mmol/L; Blood Urea Nitrogen 14 mg/dL (7-17); Calcium 10.1 mg/dL (8.4-10.2); Carbon Dioxide 17 mmol/L (22-30); Chloride 105 mmol/L (98-107); Glucose 164 mg/dL (74-99); Magnesium 1.5 mg/dL (1.6-2.3); Non-African American GFR(CKD) >90 (>60 ml/min/1.73 sqM); Potassium 4.2 mmol/L (3.5-5.1); Sodium 135 mmol/L (137-145); Total Bilirubin 1.6 mg/dL (0.2-1.3)
[2024-10-20 06:35] LABS: ALT 41 U/L (4-34); C Reactive Protein <0.5 mg/dL (<1.0)
[2024-10-20] MEDS: MORPHINE SULFATE 4 MG/ML SYRINGE IV STA (06:44)
[2024-10-20 06:50] VITALS: PULSE 78
--- NOTE | 2024-10-20 07:06 | ED ---
Headache HPI - General Chief Complaint: Headache Stated Complaint: headache Time Seen by Provider: 10/20/24 04:50 Mode of arrival: ambulatory Limitations: no limitations - History of Present Illness Initial Comments: This patient is a 44-year-old woman with history of headaches who presents with complaint that she has been having headache that has been persisting for nearly 1 week. She states that it is similar to her usual headaches but not having good relief with her usual medications. The patient did go to urgent care days ago and received steroids which she states gave partial relief and then the symptoms recurred. She denies fever or chills. No neurologic symptoms. This is not worst headache of life. MD Complaint: headache -: hour(s) Onset Description: gradual Location: diffuse Severity: severe Quality: aching Consistency: constant Improves With: nothing Worsens With: none Context: occurred at rest Associated Symptoms: nausea, vomiting, photophobia Treatments Prior to Arrival: migraine medication - Related Data Home Medications Medication Instructions Recorded Confirmed Montelukast Sodium [Singulair] 10 mg PO DAILY 08/13/18 04/04/24 Dicyclomine [Bentyl] 10 mg PO QID PRN 02/17/21 04/04/24 Famotidine [Pepcid] 20 mg PO BID 02/17/21 04/04/24 Rimegepant Sulfate [Nurtec Odt] 75 mg PO DAILY PRN 02/17/21 04/04/24 Erenumab-Aooe [Aimovig 140 mg SQ Q28D 08/04/21 04/04/24 Autoinjector] Metoprolol Tartrate [Lopressor] 25 mg PO DAILY 10/21/22 04/04/24 clonazePAM 2 mg PO HS 10/21/22 04/04/24 medroxyPROGESTERone [Depo-Provera] 150 mg IM Q84D 10/21/22 04/04/24 Aspirin EC [Ecotrin Low Dose] 81 mg PO DAILY 11/22/22 04/04/24 Nitroglycerin Sl Tabs [Nitrostat] 0.4 mg SL Q5M PRN 11/22/22 04/04/24 Oxybutynin ER [Ditropan XL] 15 mg PO HS 11/22/22 04/04/24 diphenhydrAMINE HCL [Benadryl] 25 mg PO HS 11/22/22 04/04/24 Cholecalciferol [Vitamin D3 (25 25 mcg PO DAILY 01/25/23 04/04/24 Mcg = 1000 Iu)] Atorvastatin [Lipitor] 40 mg PO DAILY 08/05/23 04/04/24 Lisdexamfetamine Dimesylate 60 mg PO DAILY 08/05/23 04/04/24 [Vyvanse] Nystatin 100,000 Unit/ml Susp 500,000 unit PO QID 08/05/23 04/04/24 [Mycostatin Oral Susp] Pantoprazole [Protonix] 80 mg PO DAILY 08/05/23 04/04/24 Zolpidem Tartrate [Ambien] 5 mg PO HS 08/05/23 04/04/24 Albuterol Inhaler [Ventolin Hfa 2 puff INHALATION RT-Q6H PRN 10/27/23 04/04/24 Inhaler] Cetirizine HCl [Zyrtec] 10 mg PO DAILY 10/27/23 04/04/24 Escitalopram [Lexapro] 10 mg PO HS 10/27/23 04/04/24 Secukinumab [Cosentyx Sensoready 300 mg SQ Q28D 10/27/23 04/04/24 (2 Pens)] tiZANidine [Zanaflex] 4 mg PO TID PRN 10/27/23 04/04/24 Albuterol Nebulized [Ventolin 2.5 mg INHALATION RT-Q6H PRN 11/11/23 04/04/24 Nebulized] oxyCODONE-APAP 10-325MG [Percocet 1 tab PO Q6H 12/29/23 04/04/24 10-325 mg] Isosorbide Mononitrate ER [Imdur] 15 mg PO DAILY 02/10/24 04/04/24 Morphine Sulfate ER [Ms Contin] 30 mg PO HS 02/10/24 04/04/24 Clindamycin 1% Pads 1 pad TOPICAL BID 04/04/24 04/04/24 Clobetasol Propionate [Clobex 1 applic TOPICAL HS 04/04/24 04/04/24 0.05% Soln] Ezetimibe [Zetia] 10 mg PO DAILY 04/04/24 04/04/24 Hydrocortisone Cream 1 applic TOPICAL HS 04/04/24 04/04/24 [Hydrocortisone 2.5% Cream] Magic 5 ml PO QID PRN 04/04/24 04/04/24 Mouthwash(Maalox,Lidocaine,Benadryl) Naloxone HCl [Narcan] 4 mg NASAL DIRECTED PRN 04/04/24 04/04/24 metroNIDAZOLE 0.75% CREAM 1 applic TOPICAL DAILY 04/04/24 04/04/24 [Metrocream 0.75%] Previous Rx's Medication Instructions Recorded Sulfamethox-Tmp 800-160Mg [Bactrim 1 each PO Q12HR #14 tab 09/27/24 Ds] Allergies Allergy/AdvReac Type Severity Reaction Status Date / Time ibuprofen [From Motrin] AdvReac Kidney Verified 10/20/24 04:32 Failure metoclopramide HCl AdvReac Hallucinati Verified 10/20/24 04:32 [From Reglan] ons NSAIDS (Non-Steroidal AdvReac Kidney Verified 10/20/24 04:32 Anti-Inflamma Failure pregabalin [From Lyrica] AdvReac Cough Verified 10/20/24 04:32 prochlorperazine AdvReac Hallucinati Verified 10/20/24 04:32 [From Compazine] ons Review of Systems ROS Statement: Those systems with pertinent positive or pertinent negative responses have been documented in the HPI. ROS Other: All systems not noted in ROS Statement are negative. Constitutional: Denies: fever, chills, weakness Eyes: Denies: vision change ENT: Denies: congestion Respiratory: Denies: cough, dyspnea Cardiovascular: Denies: chest pain, palpitations, edema Gastrointestinal: Reports: nausea, vomiting. Denies: abdominal pain, diarrhea Genitourinary: Denies: dysuria, hematuria Musculoskeletal: Denies: back pain Skin: Denies: rash Neurological: Reports: headache. Denies: weakness, numbness Past Medical History Past Medical History: Asthma, Chest Pain / Angina, Fibromyalgia, GERD/Reflux, Hyperlipidemia, Liver Disease, Neurologic Disorder, Rheumatoid Arthritis (RA) Additional Past Medical History / Comment(s): PSORIATIC ARTHRITIS. POTS. Chiari malformation with METHODS ANALYST shunt. Migraines. IBS. Lupus. OCCASIONAL DIZZINESS, IRREGULAR HEART RATE. HX POLYNEPHRITIS. Non-alcoholic fatty liver. History of Any Multi-Drug Resistant Organisms: None Reported Past Surgical History: Bladder Surgery, Hysterectomy, Joint Replacement, Orthopedic Surgery, Tonsillectomy, Tubal Ligation Additional Past Surgical History / Comment(s): Chiari decompression, shunt to brain, brain surgery X5, bladder suspension, bladder lift partial hysterectomy, uterus lift, bilateral carpal tunnel. Past Anesthesia/Blood Transfusion Reactions: No Reported Reaction Past Psychological History: ADD/ADHD, Anxiety, Depression Smoking Status: Never smoker Past Alcohol Use History: None Reported Past Drug Use History: None Reported - Past Family History Mother Family Medical History: No Reported History Father Family Medical History: Unable to Obtain General Exam Limitations: no limitations General appearance: alert, in no apparent distress Head exam: Present: atraumatic, normocephalic Eye exam: Present: normal appearance. Absent: scleral icterus, conjunctival injection ENT exam: Present: mucous membranes dry Neck exam: Present: normal inspection, full ROM. Absent: meningismus Respiratory exam: Present: normal lung sounds bilaterally. Absent: respiratory distress, wheezes, rales, rhonchi, stridor, accessory muscle use Cardiovascular Exam: Present: regular rate, normal rhythm, normal heart sounds. Absent: systolic murmur, diastolic murmur, rubs, gallop GI/Abdominal exam: Present: soft. Absent: tenderness, guarding Extremities exam: Present: normal inspection, normal capillary refill. Absent: pedal edema, calf tenderness Back exam: Present: normal inspection. Absent: CVA tenderness (R), CVA tend erness (L) Neurological exam: Present: alert, oriented X3, CN II-XII intact. Absent: motor sensory deficit Skin exam: Present: warm, dry, intact, normal color. Absent: rash Course Vital Signs 10/20/24 10/20/24 10/20/24 04:33 05:45 06:48 Temperature 98.0 F Pulse Rate 95 79 78 Respiratory 18 16 18 Rate Blood Pressure 124/81 141/82 140/79 O2 Sat by Pulse 98 98 98 Oximetry 10/20/24 08:28 Temperature 98 F Pulse Rate 78 Respiratory 18 Rate Blood Pressure 138/76 O2 Sat by Pulse 98 Oximetry Medical Decision Making - Medical Decision Making Was pt. sent in by a medical professional or institution (, PA, CERAMIC PLATER, urgent care, hospital, or [place] health care facility...) When possible be specific @ -[No] Did you speak to anyone other than the patient for history (EMS, parent, family, police, friend...)? What history was obtained from this source @ -[No] Did you review nursing and triage notes (agree or disagree)? Why? @ -[I reviewed and agree with nursing and triage notes] Were old charts reviewed (outside hosp., previous admission, EMS record, old EKG, old radiological studies, urgent care reports/EKG's, [place] health care facility records)? Report findings @ -[No old charts were reviewed] Differential Diagnosis (chest pain, altered mental status, abdominal pain women, abdominal pain men, vaginal bleeding, weakness, fever, dyspnea, syncope, headache, dizziness, GI bleed, back pain, seizure, CVA, palpatations, mental health, musculoskeletal)? @ -[Differential Headache: Migraine, tension, cluster, carbon monoxide, central venous thrombosis, pension karma temporal arteritis, acute closure glaucoma, intercranial hemorrhage, mastoiditis, sinusitis, head injury, this is not meant to be an all-inclusive list. EKG interpreted by me (3pts min.). @ -[As above] X-rays interpreted by me (1pt min.). @ -[None done] CT interpreted by me (1pt min.). @ -[None done] U/S interpreted by me (1pt. min.). @ -[None done] What testing was considered but not performed or refused? (CT, X-rays, U/S, labs)? Why? @ -CT scan was considered, but the patient states similar to usual headache and she did have good relief of symptoms. What meds were considered but not given or refused? Why? @ -[None] Did you discuss the management of the patient with other professionals (professionals i.e. , PA, CERAMIC PLATER, lab, RT, psych nurse, aids social worker, criminal justice lawyer, teacher, family preservation officer, child support case officer)? Give summary @ -[No] Was smoking cessation discussed for >3mins.? @ -[No] Was critical care preformed (if so, how long)? @ -[No] Were there social determinants of health that impacted care today? How? (Homelessness, low income, unemployed, alcoholism, drug addiction, transportation, low edu. Level, literacy, decrease access to med. care, shelter, rehab)? @ -[No] Was there de-escalation of care discussed even if they declined (Discuss DNR or withdrawal of care, Hospice)? DNR status @ -[No] What co-morbidities impacted this encounter? (DM, HTN, Smoking, COPD, CAD, Cancer, CVA, ARF, Chemo, Hep., AIDS, mental health diagnosis, sleep apnea, morbid obesity)? @ -[Chronic history of headaches Was patient admitted / discharged? Hospital course, mention meds given and route, prescriptions, significant lab abnormalities, going to OR and other pertinent info. @ -[Patient is 44-year-old woman with history of headaches presenting with headache that was not relieved with her usual medications. She did have adequate relief of symptoms here and wanted to go home. We discussed appropriate further care and follow-up as well as return parameters. I did recommend that she be seen to have her shunt checked Undiagnosed new problem with uncertain prognosis? @ -[No] Drug Therapy requiring intensive monitoring for toxicity (Heparin, Nitro, Insulin, Cardizem)? @ -[No] Were any procedures done? @ -[No] Diagnosis/symptom? @ -[Acute headache Acute, or Chronic, or Acute on Chronic? @ -[Acute Uncomplicated (without systemic symptoms) or Complicated (systemic symptoms)? @ -[Uncomplicated Side effects of treatment? @ -[No] Exacerbation, Progression, or Severe Exacerbation? @ -[No] Poses a threat to life or bodily function? How? (Chest pain, [place], [place], pneumonia, PE, COPD, DKA, ARF, appy, cholecystitis, CVA, Diverticulitis, Homicidal, Suicidal, threat to staff... and all critical care pts) @ -[No] All treatments are based on ideal body weight as in ED triage - Lab Data Result diagrams: 10/20/24 05:31 10/20/24 05:31 Lab Results 10/20/24 10/20/24 10/20/24 Range/Units 05:31 05:31 05:31 WBC 10.68 H (4.50-10.00) 10*3/uL RBC 4.80 (4.10-5.20) 10*6/uL Hgb 13.9 (12.0-15.0) g/dL Hct 39.5 (37.2-46.3) % MCV 82.3 (80.0-97.0) fL MCH 29.0 (27.0-32.0) pg MCHC 35.2 (32.0-37.0) g/dL Plt Count 268 (140-440) 10*3/uL MPV 9.6 (9.5-12.2) fL Immature Gran % (Auto) 0.4 % Neutrophils % 87.7 % Lymphocytes % 8.5 % Monocytes % 3.2 % Eosinophils % 0.0 % Basophils % 0.2 % Immature Gran # 0.04 (0.00-0.04) 10*3/uL Neutrophils # 9.37 H (1.80-7.70) 10*3/uL Lymphocytes # 0.91 (0.90-5.00) 10*3/uL Monocytes # 0.34 (0.20-1.00) 10*3/uL Eosinophils # 0.00 L (0.04-0.35) 10*3/uL Basophils # 0.02 (0.00-0.10) 10*3/uL Sodium 135 L (137-145) mmol/L Potassium 4.2 (3.5-5.1) mmol/L Chloride 105 (98-107) mmol/L Carbon Dioxide 17 L (22-30) mmol/L Anion Gap 13 mmol/L BUN 14 (7-17) mg/dL Creatinine 0.61 (0.52-1.04) mg/dL Est GFR (CKD-EPI)AfAm >90 (>60 ml/min/1.73 sqM) Est GFR (CKD-EPI)NonAf >90 (>60 ml/min/1.73 sqM) Glucose 164 H (74-99) mg/dL Lactic Ac Sepsis Rflx Plasma Lactic Acid Paulino 3.8 H* (0.7-2.0) mmol/L Calcium 10.1 (8.4-10.2) mg/dL Magnesium 1.5 L (1.6-2.3) mg/dL Total Bilirubin 1.6 H (0.2-1.3) mg/dL AST 33 (14-36) U/L ALT 41 H (4-34) U/L Alkaline Phosphatase 114 (38-126) U/L C-Reactive Protein <0.5 (<1.0) mg/dL Total Protein 7.0 (6.3-8.2) g/dL Albumin 4.4 (3.5-5.0) g/dL Urine Color Urine Appearance (Clear) Urine pH (5.0-8.0) Ur Specific [place] (1.001-1.035) Urine Protein (Negative) Urine Glucose (UA) (Negative) Urine Ketones (Negative) Urine Blood (Negative) Urine Nitrite (Negative) Urine Bilirubin (Negative) Urine Urobilinogen (<2.0) mg/dL Ur Leukocyte Esterase (Negative) 10/20/24 10/20/24 Range/Units 06:13 07:16 WBC (4.50-10.00) 10*3/uL RBC (4.10-5.20) 10*6/uL Hgb (12.0-15.0) g/dL Hct (37.2-46.3) % MCV (80.0-97.0) fL MCH (27.0-32.0) pg MCHC (32.0-37.0) g/dL Plt Count (140-440) 10*3/uL MPV (9.5-12.2) fL Immature Gran % (Auto) % Neutrophils % % Lymphocytes % % Monocytes % % Eosinophils % % Basophils % % Immature Gran # (0.00-0.04) 10*3/uL Neutrophils # (1.80-7.70) 10*3/uL Lymphocytes # (0.90-5.00) 10*3/uL Monocytes # (0.20-1.00) 10*3/uL Eosinophils # (0.04-0.35) 10*3/uL Basophils # (0.00-0.10) 10*3/uL Sodium (137-145) mmol/L Potassium (3.5-5.1) mmol/L Chloride (98-107) mmol/L Carbon Dioxide (22-30) mmol/L Anion Gap mmol/L BUN (7-17) mg/dL Creatinine (0.52-1.04) mg/dL Est GFR (CKD-EPI)AfAm (>60 ml/min/1.73 sqM) Est GFR (CKD-EPI)NonAf (>60 ml/min/1.73 sqM) Glucose (74-99) mg/dL Lactic Ac Sepsis Rflx Y Plasma Lactic Acid Paulino (0.7-2.0) mmol/L Calcium (8.4-10.2) mg/dL Magnesium (1.6-2.3) mg/dL Total Bilirubin (0.2-1.3) mg/dL AST (14-36) U/L ALT (4-34) U/L Alkaline Phosphatase (38-126) U/L C-Reactive Protein (<1.0) mg/dL Total Protein (6.3-8.2) g/dL Albumin (3.5-5.0) g/dL Urine Color Colorless Urine Appearance Clear (Clear) Urine pH 5.5 (5.0-8.0) Ur Specific [place] 1.019 (1.001-1.035) Urine Protein Negative (Negative) Urine Glucose (UA) 3+ H (Negative) Urine Ketones Trace H (Negative) Urine Blood Negative (Negative) Urine Nitrite Negative (Negative) Urine Bilirubin Negative (Negative) Urine Urobilinogen <2.0 (<2.0) mg/dL Ur Leukocyte Esterase Negative (Negative) Disposition Clinical Impression: Migraine headache Disposition: HOME SELF-CARE Condition: Good Instructions (If sedation given, give patient instructions): Acute Headache (ED) Is patient prescribed a controlled substance at d/c from ED?: No Referrals: Demarcus Osorio MD [Primary Care Provider] - 1-2 days
[2024-10-20] MEDS: MAGNESIUM SULFATE-D5W PMX 1 GM in DEXTROSE/WATER 1 100ML.BAG IVPB ONE (07:30)
[2024-10-20] MEDS: HYDROmorphone 0.5 MG/0.5 ML SYRINGE IVP STA (07:38)
[2024-10-20 07:40] LABS: Appearance,Urine Clear (Clear); Bilirubin,Urine Negative (Negative); Blood,Urine Negative (Negative); Color,Urine Colorless; Glucose,Urine (UA) 3+ (Negative); Ketones,Urine Trace (Negative); Leukocyte Esterase,Urine Negative (Negative); Nitrite,Urine Negative (Negative); PH, Urine 5.5 (5.0-8.0); Protein,Urine Negative (Negative); Specific Gravity,Urine 1.019 (1.001-1.035); Urobilinogen,Urine <2.0 mg/dL (<2.0)
[2024-10-20 08:31] VITALS: BP 138/76; TEMP 98
== END 2024-10-20 08:31 | disposition home or self-care (01) ==
LOC: EC 04:30
DX: G43.909 Migraine, unspecified, not intractable, without status migrainosus (principal); Z88.6 Allergy status to analgesic agent; Z88.8 Allergy status to other drugs, medicaments and biological substances
CPT/HCPCS: 36415; 80053; 83605; 83735; 85025; 86140; 81003; 99284; 96365; 96375 ×4; 96361 ×2; J2270; J1200; J2405; J3475; J1171

== ENCOUNTER 2024-12-15 22:09 | Emergency (ER) | payer MEDICARE, OTHER ==
[2024-12-15 22:13] VITALS: RESP 18
--- NOTE | 2024-12-15 22:33 | ED ---
Abdominal Pain HPI - General Chief Complaint: Abdominal Pain Stated Complaint: ABD PAIN Time Seen by Provider: 12/15/24 22:15 Source: patient, RN notes reviewed Mode of arrival: ambulatory Limitations: no limitations - History of Present Illness Initial Comments: This is a 44-year-old female with multiple comorbid conditions including fibromyalgia, Chiari malformation, chronic chest pain, and headaches, who is presenting to emergency room with complaints of epigastric abdominal pain that has been persistent over the past 2 weeks. Patient states that she presented to the emergency department in the end of November with similar symptoms where she was transferred to via [place] for further evaluation where she underwent MRCP that was unremarkable. 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 States that she has been experiencing persistent epigastric abdominal pain since original visit in the emergency department described as a burning and stabbing sensation that is nonradiating. Endorses associated nausea with no reported emesis. Denies diarrhea, constipation, urinary complaints, difficulty breathing. - Related Data Home Medications Medication Instructions Recorded Confirmed Montelukast Sodium [Singulair] 10 mg PO DAILY 08/13/18 12/02/24 Dicyclomine [Bentyl] 10 mg PO TID PRN 02/17/21 12/02/24 Famotidine [Pepcid] 20 mg PO BID 02/17/21 12/02/24 Rimegepant Sulfate [Nurtec Odt] 75 mg PO DAILY PRN 02/17/21 12/02/24 Erenumab-Aooe [Aimovig 140 mg SQ Q28D 08/04/21 12/02/24 Autoinjector] Metoprolol Tartrate [Lopressor] 25 mg PO BID 10/21/22 12/02/24 clonazePAM 2 mg PO HS 10/21/22 12/02/24 medroxyPROGESTERone [Depo-Provera] 150 mg IM Q90D 10/21/22 12/02/24 Aspirin EC [Ecotrin Low Dose] 81 mg PO DAILY 11/22/22 12/02/24 Nitroglycerin Sl Tabs [Nitrostat] 0.4 mg SL Q5M PRN 11/22/22 12/02/24 diphenhydrAMINE HCL [Benadryl] 25 mg PO HS 11/22/22 12/02/24 Cholecalciferol [Vitamin D3 (25 25 mcg PO DAILY 01/25/23 12/02/24 Mcg = 1000 Iu)] Atorvastatin [Lipitor] 40 mg PO DAILY 08/05/23 12/02/24 Pantoprazole [Protonix] 40 mg PO DAILY 08/05/23 12/02/24 Albuterol Inhaler [Ventolin Hfa 2 puff INHALATION RT-TID PRN 10/27/23 12/02/24 Inhaler] Secukinumab [Cosentyx Sensoready 300 mg SQ Q28D 10/27/23 12/02/24 (2 Pens)] tiZANidine [Zanaflex] 4 mg PO TID PRN 10/27/23 12/02/24 Albuterol Nebulized [Ventolin 2.5 mg INHALATION DIRECTED PRN 11/11/23 12/02/24 Nebulized] oxyCODONE-APAP 10-325MG [Percocet 1 tab PO Q4-6H PRN 12/29/23 12/02/24 10-325 mg] Isosorbide Mononitrate ER [Imdur] 15 mg PO DAILY 02/10/24 12/02/24 Clobetasol Propionate [Clobex 1 applic TOPICAL HS 04/04/24 12/02/24 0.05% Soln] Ezetimibe [Zetia] 10 mg PO DAILY 04/04/24 12/02/24 Acetaminophen Tab [Tylenol Tab] 1,000 mg PO Q6HR PRN 12/02/24 12/02/24 Baclofen 10 mg PO BID 12/02/24 12/02/24 Brexpiprazole [Rexulti] 0.25 mg PO DAILY 12/02/24 12/02/24 Brompheniramine/Pseudoephed/Dm 10 ml PO Q4H PRN 12/02/24 12/02/24 [Cwbofyod-Mzq-Gn 2-30-10 mg/5Ml] Clindamycin Phosphate 1 applic TOPICAL BID 12/02/24 12/02/24 Clobetasol 1% Cream 1 applic TOPICAL DIRECTED 12/02/24 12/02/24 Clotrimazole/Betameth Cream 1 applic TOPICAL BID PRN 12/02/24 12/02/24 [Lotrisone] Dextroamphetamine/Amphetamine 15 mg PO BID 12/02/24 12/02/24 [Adderall] Diphenoxylate HCl/Atropine 1 tab PO DIRECTED PRN 12/02/24 12/02/24 [Lomotil 2.5-0.025 mg Tablet] Docusate [Colace] 100 mg PO BID 12/02/24 12/02/24 Escitalopram [Lexapro] 20 mg PO HS 12/02/24 12/02/24 Fluticasone Nasal [place] [Flonase 1 spray EA NOSTRIL DAILY 12/02/24 12/02/24 Nasal [place]] Hyoscyamine Sulfate [Hyoscyamine 0.125 mg SL DIRECTED 12/02/24 12/02/24 Sulfate SL] Ipratropium-Albuterol Nebulize 3 ml INHALATION DIRECTED PRN 12/02/24 12/02/24 [Duoneb 0.5 mg-3 mg/3 ml Soln] Levocetirizine Dihydrochloride 5 mg PO DAILY 12/02/24 12/02/24 [Xyzal] Linaclotide [Linzess] 145 mcg PO DAILY 12/02/24 12/02/24 Magic Mouthwash 5 ml PO DIRECTED PRN 12/02/24 12/02/24 Ondansetron [Zofran] 4 mg PO Q8HR PRN 12/02/24 12/02/24 Zolpidem [Ambien] 10 mg PO HS 12/02/24 12/02/24 oxyCODONE ER [OxyCONTIN] 10 mg PO HS 12/02/24 12/02/24 Allergies Allergy/AdvReac Type Severity Reaction Status Date / Time ibuprofen [From Motrin] AdvReac Kidney Verified 12/15/24 22:13 Failure metoclopramide HCl AdvReac Hallucinati Verified 12/15/24 22:13 [From Reglan] ons NSAIDS (Non-Steroidal AdvReac Kidney Verified 12/15/24 22:13 Anti-Inflamma Failure pregabalin [From Lyrica] AdvReac Cough Verified 12/15/24 22:13 prochlorperazine AdvReac Hallucinati Verified 12/15/24 22:13 [From Compazine] ons Review of Systems ROS Statement: Those systems with pertinent positive or pertinent negative responses have been documented in the HPI. ROS Other: All systems not noted in ROS Statement are negative. Past Medical History Past Medical History: Asthma, Chest Pain / Angina, Fibromyalgia, GERD/Reflux, Hyperlipidemia, Liver Disease, Neurologic Disorder, Rheumatoid Arthritis (RA) Additional Past Medical History / Comment(s): PSORIATIC ARTHRITIS. POTS. 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 Migraines. IBS. Lupus. OCCASIONAL DIZZINESS, IRREGULAR HEART RATE. HX POLYNEPHRITIS. Non-alcoholic fatty liver. History of Any Multi-Drug Resistant Organisms: None Reported Past Surgical History: Bladder Surgery, Hysterectomy, Joint Replacement, Orthopedic Surgery, Tonsillectomy, Tubal Ligation Additional Past Surgical History / Comment(s): Chiari decompression, shunt to brain, brain surgery X5, bladder suspension, bladder lift partial hysterectomy, uterus lift, bilateral carpal tunnel. Past Anesthesia/Blood Transfusion Reactions: No Reported Reaction Past Psychological History: ADD/ADHD, Anxiety, Depression Smoking Status: Never smoker Past Alcohol Use History: None Reported Past Drug Use History: None Reported - Past Family History Mother Family Medical History: No Reported History Father Family Medical History: Unable to Obtain General Exam Limitations: no limitations General appearance: alert, in no apparent distress ENT exam: Present: normal exam, mucous membranes moist Neck exam: Present: normal inspection. Absent: tenderness, meningismus, lymphadenopathy Respiratory exam: Present: normal lung sounds bilaterally. Absent: respiratory distress, wheezes, rales, rhonchi, stridor Cardiovascular Exam: Present: regular rate, normal rhythm, normal heart sounds. Absent: systolic murmur, diastolic murmur, rubs, gallop, clicks GI/Abdominal exam: Present: soft, tenderness (epigastric), normal bowel sounds. Absent: distended, guarding, rebound, rigid Extremities exam: Present: normal inspection, full ROM, normal capillary refill. Absent: tenderness, pedal edema, joint swelling, calf tenderness Back exam: Present: normal inspection. Absent: CVA tenderness (R) Course Vital Signs 12/15/24 12/15/24 12/15/24 22:11 22:44 22:49 Temperature 97.4 F L Pulse Rate 91 98 Respiratory 18 Rate Blood Pressure 124/80 108/80 O2 Sat by Pulse 98 99 Oximetry 12/15/24 12/16/24 23:31 00:39 Temperature 98.3 F Pulse Rate 90 78 Respiratory 18 18 Rate Blood Pressure 128/64 138/80 O2 Sat by Pulse 99 100 Oximetry Medical Decision Making - Medical Decision Making Was pt. sent in by a medical professional or institution (KAPIL Hodge, AEROSPACE PROJECT ENGINEER, urgent care, hospital, or group home...) When possible be specific @ -No Did you speak to anyone other than the patient for history (EMS, parent, family, police, friend...)? What history was obtained from this source @ -No Did you review nursing and triage notes (agree or disagree)? Why? @ -I reviewed and agree with nursing and triage notes Were old charts reviewed (outside hosp., previous admission, EMS record, old EKG, old radiological studies, urgent care reports/EKG's, group home records)? Report findings @ -Reviewed patient's ER visit note from 12/03/2024 for recent with epigastric abdominal pain was admitted for acute pancreatitis Differential Diagnosis (chest pain, altered mental status, abdominal pain women, abdominal pain men, vaginal bleeding, weakness, fever, dyspnea, syncope, headache, dizziness, GI bleed, back pain, seizure, CVA, palpatations, mental health, musculoskeletal)? @ -Differential Abdominal Pain Women: Appendicitis, Cholecystitis, diverticulosis, ischemic bowel, pancreatitis, hepatitis, UTI, gastroenteritis, AAA, incarcerated hernia, bowel obstruction, constipation, inflammatory bowel, hepatitis, peptic ulcer disease, splenic infarction, perforated viscus, vulvitis, ovarian torsion, PID, kidney stone, placenta abruption, this is not meant to be an all-inclusive list EKG interpreted by me (3pts min.). @ -EKG completed at 2247 sinus rhythm with noted sinus arrhythmia, ventricular rate of 88, UT interval 148, QRS 81, QT 354, QTc 400. X-rays interpreted by me (1pt min.). @ -None done CT interpreted by me (1pt min.). @ - CT imaging of the abdomen was considered but deferred as patient's laboratory testing is unremarkable as she had recent MRCP less than a week ago that was unremarkable. U/S interpreted by me (1pt. min.). @ -None done What testing was considered but not performed or refused? (CT, X-rays, U/S, labs)? Why? @ -None What meds were considered but not given or refused? Why? @ -None Did you discuss the management of the patient with other professionals (professionals i.e. KAPIL Hodge, AEROSPACE PROJECT ENGINEER, lab, RT, psych nurse, social secretary, broker in charge, teacher, [place] [employer] police officer, business case analyst)? Give summary @ -No Was smoking cessation discussed for >3mins.? @ -No Was critical care preformed (if so, how long)? @ -No Were there social determinants of health that impacted care today? How? (Homelessness, low income, unemployed, alcoholism, drug addiction, transportation, low edu. Level, literacy, decrease access to med. care, shelter, rehab)? @ -No Was there de-escalation of care discussed even if they declined (Discuss DNR or withdrawal of care, Hospice)? DNR status @ -No What co-morbidities impacted this encounter? (DM, HTN, Smoking, COPD, CAD, Cancer, CVA, ARF, Chemo, Hep., AIDS, mental health diagnosis, sleep apnea, morbid obesity)? @ -None Was patient admitted / discharged? Hospital course, mention meds given and route, prescriptions, significant lab abnormalities, going to OR and other pertinent info. @ -Discharge. 44 presents emerged part with complaints of epigastric abdominal pain. Patient's initial vitals are stable and abdominal examination reveals reproducible epigastric abdominal pain to palpation. Patient is provided with IV fluids, Zofran for nausea control and Dilaudid for pain relief. Laboratory testing reveals mildly elevated AST of 41, ALT 48 and total bilirubin of 1.4 however these have greatly improved as compared to previous liver function tests on 12/03/2024. Urinalysis reveals no signs of infection. Patient ready with additional dose of pain medication is stable for discharge with appropriate follow-up. Return parameters discussed. Case discussed with Dr. Irby Undiagnosed new problem with uncertain prognosis? @ -No Drug Therapy requiring intensive monitoring for toxicity (Heparin, Nitro, Insulin, Cardizem)? @ -No Were any procedures done? @ -No Diagnosis/symptom? @ -epigastric abdominal pain, unspecified Acute, or Chronic, or Acute on Chronic? @ -acute Uncomplicated (without systemic symptoms) or Complicated (systemic symptoms)? @ -uncomplicated Side effects of treatment? @ -No Exacerbation, Progression, or Severe Exacerbation? @ -No Poses a threat to life or bodily function? How? (Chest pain, USA, PR, pneumonia, PE, COPD, DKA, ARF, appy, cholecystitis, CVA, Diverticulitis, Homicidal, Suicidal, threat to staff... and all critical care pts) @ -No - Lab Data Result diagrams: 12/15/24 22:35 12/15/24 22:35 Lab Results 12/15/24 12/15/24 12/15/24 Range/Units 22:28 22:35 22:35 WBC 6.42 (4.50-10.00) 10*3/uL RBC 4.56 (4.10-5.20) 10*6/uL Hgb 13.4 (12.0-15.0) g/dL Hct 38.9 (37.2-46.3) % MCV 85.3 (80.0-97.0) fL MCH 29.4 (27.0-32.0) pg MCHC 34.4 (32.0-37.0) g/dL Plt Count 321 (140-440) 10*3/uL MPV 9.5 (9.5-12.2) fL Immature Gran % (Auto) 0.3 % Neutrophils % 52.1 % Lymphocytes % 36.4 % Monocytes % 7.5 % Eosinophils % 2.8 % Basophils % 0.9 % Immature Gran # 0.02 (0.00-0.04) 10*3/uL Neutrophils # 3.34 (1.80-7.70) 10*3/uL Lymphocytes # 2.34 (0.90-5.00) 10*3/uL Monocytes # 0.48 (0.20-1.00) 10*3/uL Eosinophils # 0.18 (0.04-0.35) 10*3/uL Basophils # 0.06 (0.00-0.10) 10*3/uL Sodium 139 (137-145) mmol/L Potassium 4.1 (3.5-5.1) mmol/L Chloride 104 (98-107) mmol/L Carbon Dioxide 25 (22-30) mmol/L Anion Gap 10 mmol/L BUN 21 H (7-17) mg/dL Creatinine 1.00 (0.52-1.04) mg/dL Est GFR (CKD-EPI)AfAm 80 (>60 ml/min/1.73 sqM) Est GFR (CKD-EPI)NonAf 70 (>60 ml/min/1.73 sqM) Glucose 103 H (74-99) mg/dL Plasma Lactic Acid Paulino (0.7-2.0) mmol/L Calcium 9.8 (8.4-10.2) mg/dL Magnesium 1.6 (1.6-2.3) mg/dL Total Bilirubin 1.4 H (0.2-1.3) mg/dL AST 41 H (14-36) U/L ALT 48 H (4-34) U/L Alkaline Phosphatase 118 (38-126) U/L Troponin I (0.000-0.034) ng/mL Total Protein 7.1 (6.3-8.2) g/dL Albumin 4.3 (3.5-5.0) g/dL Amylase 73 (30-110) U/L Lipase 277 (23-300) U/L Urine Color Colorless Urine Appearance Cloudy H (Clear) Urine pH 6.0 (5.0-8.0) Ur Specific [place] 1.017 (1.001-1.035) Urine Protein Negative (Negative) Urine Glucose (UA) Negative (Negative) Urine Ketones Negative (Negative) Urine Blood Negative (Negative) Urine Nitrite Negative (Negative) Urine Bilirubin Negative (Negative) Urine Urobilinogen <2.0 (<2.0) mg/dL Ur Leukocyte Esterase Large H (Negative) Urine RBC 1 (0-5) /hpf Urine WBC 5 (0-5) /hpf Ur Squamous Epith Cells 13 H (0-4) /hpf Urine Bacteria Rare H (None) /hpf Urine Mucus Rare H (None) /hpf 12/15/24 12/15/24 Range/Units 22:35 22:35 WBC (4.50-10.00) 10*3/uL RBC (4.10-5.20) 10*6/uL Hgb (12.0-15.0) g/dL Hct (37.2-46.3) % MCV (80.0-97.0) fL MCH (27.0-32.0) pg MCHC (32.0-37.0) g/dL Plt Count (140-440) 10*3/uL MPV (9.5-12.2) fL Immature Gran % (Auto) % Neutrophils % % Lymphocytes % % Monocytes % % Eosinophils % % Basophils % % Immature Gran # (0.00-0.04) 10*3/uL Neutrophils # (1.80-7.70) 10*3/uL Lymphocytes # (0.90-5.00) 10*3/uL Monocytes # (0.20-1.00) 10*3/uL Eosinophils # (0.04-0.35) 10*3/uL Basophils # (0.00-0.10) 10*3/uL Sodium (137-145) mmol/L Potassium (3.5-5.1) mmol/L Chloride (98-107) mmol/L Carbon Dioxide (22-30) mmol/L Anion Gap mmol/L BUN (7-17) mg/dL Creatinine (0.52-1.04) mg/dL Est GFR (CKD-EPI)AfAm (>60 ml/min/1.73 sqM) Est GFR (CKD-EPI)NonAf (>60 ml/min/1.73 sqM) Glucose (74-99) mg/dL Plasma Lactic Acid Paulino 1.1 (0.7-2.0) mmol/L Calcium (8.4-10.2) mg/dL Magnesium (1.6-2.3) mg/dL Total Bilirubin (0.2-1.3) mg/dL AST (14-36) U/L ALT (4-34) U/L Alkaline Phosphatase (38-126) U/L Troponin I <0.012 (0.000-0.034) ng/mL Total Protein (6.3-8.2) g/dL Albumin (3.5-5.0) g/dL Amylase (30-110) U/L Lipase (23-300) U/L Urine Color Urine Appearance (Clear) Urine pH (5.0-8.0) Ur Specific [place] (1.001-1.035) Urine Protein (Negative) Urine Glucose (UA) (Negative) Urine Ketones (Negative) Urine Blood (Negative) Urine Nitrite (Negative) Urine Bilirubin (Negative) Urine Urobilinogen (<2.0) mg/dL Ur Leukocyte Esterase (Negative) Urine RBC (0-5) /hpf Urine WBC (0-5) /hpf Ur Squamous Epith Cells (0-4) /hpf Urine Bacteria (None) /hpf Urine Mucus (None) /hpf Disposition Clinical Impression: Epigastric abdominal pain Disposition: HOME SELF-CARE Condition: Stable Instructions (If sedation given, give patient instructions): Abdominal Pain (ED) Additional Instructions: Please return to the Emergency Department if symptoms worsen or any other concerns. Is patient prescribed a controlled substance at d/c from ED?: No Referrals: Demarcus Osorio MD [Primary Care Provider] - 1-2 days Time of Disposition: 00:06
[2024-12-15] MEDS: SODIUM CHLORIDE 0.9% 1,000 ML IV ONE (22:40)
[2024-12-15] MEDS: ONDANSETRON 4 MG/2 ML VIAL IVP STA (22:40)
[2024-12-15] MEDS: HYDROmorphone 1 MG/ML 1 ML SYRINGE IVP STA (22:41)
[2024-12-15 22:49] LABS: Basophils # (A) 0.06 10*3/uL (0.00-0.10); Basophils % (A) 0.9 %; Eosinophils # (A) 0.18 10*3/uL (0.04-0.35); Eosinophils % (A) 2.8 %; HCT 38.9 % (37.2-46.3); HGB 13.4 g/dL (12.0-15.0); Lymphocytes # (A) 2.34 10*3/uL (0.90-5.00); Lymphocytes % (A) 36.4 %; MCH 29.4 pg (27.0-32.0); MCHC 34.4 g/dL (32.0-37.0); MCV 85.3 fL (80.0-97.0); Mean Platelet Volume 9.5 fL (9.5-12.2); Monocytes # (A) 0.48 10*3/uL (0.20-1.00); Monocytes % (A) 7.5 %; Neutrophils # (A) 3.34 10*3/uL (1.80-7.70); Neutrophils % (A) 52.1 %; Platelet Count 321 10*3/uL (140-440); RBC 4.56 10*6/uL (4.10-5.20); RDW 12.4 % (11.5-14.5); WBC 6.42 10*3/uL (4.50-10.00)
[2024-12-15 23:02] LABS: ALT 48 U/L (4-34); AST 41 U/L (14-36); African American GFR (CKD) 80 (>60 ml/min/1.73 sqM); Albumin 4.3 g/dL (3.5-5.0); Alkaline Phosphatase 118 U/L (38-126); Amylase 73 U/L (30-110); Anion Gap 10 mmol/L; Blood Urea Nitrogen 21 mg/dL (7-17); Calcium 9.8 mg/dL (8.4-10.2); Carbon Dioxide 25 mmol/L (22-30); Chloride 104 mmol/L (98-107); Glucose 103 mg/dL (74-99); Lipase 277 U/L (23-300); Magnesium 1.6 mg/dL (1.6-2.3); Non-African American GFR(CKD) 70 (>60 ml/min/1.73 sqM); Potassium 4.1 mmol/L (3.5-5.1); Sodium 139 mmol/L (137-145); Total Bilirubin 1.4 mg/dL (0.2-1.3); Total Protein 7.1 g/dL (6.3-8.2)
[2024-12-15 23:27] LABS: Appearance,Urine Cloudy (Clear); Bacteria,Urine Rare /hpf; Bilirubin,Urine Negative (Negative); Blood,Urine Negative (Negative); Color,Urine Colorless; Glucose,Urine (UA) Negative (Negative); Ketones,Urine Negative (Negative); Leukocyte Esterase,Urine Large (Negative); Mucus,Urine Rare /hpf; Nitrite,Urine Negative (Negative); Protein,Urine Negative (Negative); RBC,Urine 1 /hpf (0-5); Specific Gravity,Urine 1.017 (1.001-1.035); Squamous Epithelial Cell,Urine 13 /hpf (0-4); Urobilinogen,Urine <2.0 mg/dL (<2.0); WBC,Urine 5 /hpf (0-5)
[2024-12-15] MEDS: MORPHINE SULFATE 4 MG/ML SYRINGE IVP STA (23:32)
[2024-12-16] MEDS: ACET/COD 300 MG/30 MG STARTER PACK 6 TAB BTL PO STA (00:38)
[2024-12-16 00:41] VITALS: BP 138/80; PULSE 78; TEMP 98.3
== END 2024-12-16 00:41 | disposition home or self-care (01) ==
LOC: EC 22:09
DX: R10.13 Epigastric pain (principal); Z88.6 Allergy status to analgesic agent; Z88.8 Allergy status to other drugs, medicaments and biological substances
CPT/HCPCS: 36415; 93005; 80053; 82150; 83605; 83690; 83735; 84484; 85025; 81001; 99284; 96374; 96375 ×2; 96361 ×2; J2270; J2405; J1171

== ENCOUNTER 2024-12-22 10:22 | Emergency (ER) | payer MEDICARE, OTHER ==
[2024-12-22 10:28] VITALS: TEMP 97.8
--- NOTE | 2024-12-22 11:36 | ED ---
Nausea/Vomiting/Diarrhea HPI - General Chief complaint: Nausea/Vomiting/Diarrhea Stated complaint: Abd/Back Pain Time Seen by Provider: 12/22/24 10:39 Source: patient, RN notes reviewed Mode of arrival: ambulatory Limitations: no limitations - History of Present Illness Initial comments: 44-year-old female presenting for suprapubic abdominal pain x 2 days with associated urinary frequency, urinary urgency, and dysuria. States this feels similar to previous UTIs. States she had a "sling" in her urethra for over a year that was removed 3 weeks ago. 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 Admits to nausea but denies v omiting. Tolerating orals well. Denies fevers. Also states she had renal failure several years ago secondary to an infection and was told to avoid NSAIDs. - Related Data Home Medications Medication Instructions Recorded Confirmed Montelukast Sodium [Singulair] 10 mg PO DAILY 08/13/18 12/02/24 Dicyclomine [Bentyl] 10 mg PO TID PRN 02/17/21 12/02/24 Famotidine [Pepcid] 20 mg PO BID 02/17/21 12/02/24 Rimegepant Sulfate [Nurtec Odt] 75 mg PO DAILY PRN 02/17/21 12/02/24 Erenumab-Aooe [Aimovig 140 mg SQ Q28D 08/04/21 12/02/24 Autoinjector] Metoprolol Tartrate [Lopressor] 25 mg PO BID 10/21/22 12/02/24 clonazePAM 2 mg PO HS 10/21/22 12/02/24 medroxyPROGESTERone [Depo-Provera] 150 mg IM Q90D 10/21/22 12/02/24 Aspirin EC [Ecotrin Low Dose] 81 mg PO DAILY 11/22/22 12/02/24 Nitroglycerin Sl Tabs [Nitrostat] 0.4 mg SL Q5M PRN 11/22/22 12/02/24 diphenhydrAMINE HCL [Benadryl] 25 mg PO HS 11/22/22 12/02/24 Cholecalciferol [Vitamin D3 (25 25 mcg PO DAILY 01/25/23 12/02/24 Mcg = 1000 Iu)] Atorvastatin [Lipitor] 40 mg PO DAILY 08/05/23 12/02/24 Pantoprazole [Protonix] 40 mg PO DAILY 08/05/23 12/02/24 Albuterol Inhaler [Ventolin Hfa 2 puff INHALATION RT-TID PRN 10/27/23 12/02/24 Inhaler] Secukinumab [Cosentyx Sensoready 300 mg SQ Q28D 10/27/23 12/02/24 (2 Pens)] tiZANidine [Zanaflex] 4 mg PO TID PRN 10/27/23 12/02/24 Albuterol Nebulized [Ventolin 2.5 mg INHALATION DIRECTED PRN 11/11/23 12/02/24 Nebulized] oxyCODONE-APAP 10-325MG [Percocet 1 tab PO Q4-6H PRN 12/29/23 12/02/24 10-325 mg] Isosorbide Mononitrate ER [Imdur] 15 mg PO DAILY 02/10/24 12/02/24 Clobetasol Propionate [Clobex 1 applic TOPICAL HS 04/04/24 12/02/24 0.05% Soln] Ezetimibe [Zetia] 10 mg PO DAILY 04/04/24 12/02/24 Acetaminophen Tab [Tylenol Tab] 1,000 mg PO Q6HR PRN 12/02/24 12/02/24 Baclofen 10 mg PO BID 12/02/24 12/02/24 Brexpiprazole [Rexulti] 0.25 mg PO DAILY 12/02/24 12/02/24 Brompheniramine/Pseudoephed/Dm 10 ml PO Q4H PRN 12/02/24 12/02/24 [Zatapxmx-Zlg-Vb 2-30-10 mg/5Ml] Clindamycin Phosphate 1 applic TOPICAL BID 12/02/24 12/02/24 Clobetasol 1% Cream 1 applic TOPICAL DIRECTED 12/02/24 12/02/24 Clotrimazole/Betameth Cream 1 applic TOPICAL BID PRN 12/02/24 12/02/24 [Lotrisone] Dextroamphetamine/Amphetamine 15 mg PO BID 12/02/24 12/02/24 [Adderall] Diphenoxylate HCl/Atropine 1 tab PO DIRECTED PRN 12/02/24 12/02/24 [Lomotil 2.5-0.025 mg Tablet] Docusate [Colace] 100 mg PO BID 12/02/24 12/02/24 Escitalopram [Lexapro] 20 mg PO HS 12/02/24 12/02/24 Fluticasone Nasal [place] [Flonase 1 spray EA NOSTRIL DAILY 12/02/24 12/02/24 Nasal [place]] Hyoscyamine Sulfate [Hyoscyamine 0.125 mg SL DIRECTED 12/02/24 12/02/24 Sulfate SL] Ipratropium-Albuterol Nebulize 3 ml INHALATION DIRECTED PRN 12/02/24 12/02/24 [Duoneb 0.5 mg-3 mg/3 ml Soln] Levocetirizine Dihydrochloride 5 mg PO DAILY 12/02/24 12/02/24 [Xyzal] Linaclotide [Linzess] 145 mcg PO DAILY 12/02/24 12/02/24 Magic Mouthwash 5 ml PO DIRECTED PRN 12/02/24 12/02/24 Ondansetron [Zofran] 4 mg PO Q8HR PRN 12/02/24 12/02/24 Zolpidem [Ambien] 10 mg PO HS 12/02/24 12/02/24 oxyCODONE ER [OxyCONTIN] 10 mg PO HS 12/02/24 12/02/24 Previous Rx's Medication Instructions Recorded Cephalexin [Keflex] 500 mg PO Q12H 7 Days #14 cap 12/22/24 Allergies Allergy/AdvReac Type Severity Reaction Status Date / Time ibuprofen [From Motrin] AdvReac Kidney Verified 12/22/24 10:28 Failure metoclopramide HCl AdvReac Hallucinati Verified 12/22/24 10:28 [From Reglan] ons NSAIDS (Non-Steroidal AdvReac Kidney Verified 12/22/24 10:28 Anti-Inflamma Failure pregabalin [From Lyrica] AdvReac Cough Verified 12/22/24 10:28 prochlorperazine AdvReac Hallucinati Verified 12/22/24 10:28 [From Compazine] ons Review of Systems ROS Statement: Those systems with pertinent positive or pertinent negative responses have been documented in the HPI. ROS Other: All systems not noted in ROS Statement are negative. Past Medical History Past Medical History: Asthma, Chest Pain / Angina, Fibromyalgia, GERD/Reflux, Hyperlipidemia, Liver Disease, Neurologic Disorder, Rheumatoid Arthritis (RA) Additional Past Medical History / Comment(s): PSORIATIC ARTHRITIS. POTS. 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 Migraines. IBS. Lupus. OCCASIONAL DIZZINESS, IRREGULAR HEART RATE. HX POLYNEPHRITIS. Non-alcoholic fatty liver. History of Any Multi-Drug Resistant Organisms: None Reported Past Surgical History: Bladder Surgery, Hysterectomy, Joint Replacement, Orthopedic Surgery, Tonsillectomy, Tubal Ligation Additional Past Surgical History / Comment(s): Chiari decompression, shunt to brain, brain surgery X5, bladder suspension, bladder lift partial hysterectomy, uterus lift, bilateral carpal tunnel. Past Anesthesia/Blood Transfusion Reactions: No Reported Reaction Past Psychological History: ADD/ADHD, Anxiety, Depression Smoking Status: Never smoker Past Alcohol Use History: None Reported Past Drug Use History: None Reported - Past Family History Mother Family Medical History: No Reported History Father Family Medical History: Unable to Obtain General Exam Limitations: no limitations General appearance: alert, in no apparent distress Head exam: Present: atraumatic, normocephalic, normal inspection Eye exam: Present: normal appearance, PERRL, EOMI. Absent: scleral icterus, conjunctival injection, periorbital swelling Respiratory exam: Present: normal lung sounds bilaterally. Absent: respiratory distress, wheezes, rales, rhonchi, stridor Cardiovascular Exam: Present: regular rate, normal rhythm, normal heart sounds. Absent: systolic murmur, diastolic murmur, rubs, gallop, clicks GI/Abdominal exam: Present: soft, tenderness (Reproducible suprapubic tenderness), normal bowel sounds. Absent: distended, guarding, rebound, rigid Back exam: Absent: CVA tenderness (R), CVA tenderness (L) Neurological exam: Present: alert, oriented X3 Psychiatric exam: Present: normal affect, normal mood Skin exam: Present: warm, dry, intact, normal color. Absent: rash Course Vital Signs 12/22/24 10:26 Temperature 97.8 F Pulse Rate 86 Respiratory 20 Rate Blood Pressure 146/93 O2 Sat by Pulse 99 Oximetry Medical Decision Making - Medical Decision Making Was pt. sent in by a medical professional or institution (KAPIL Hodge, GORING CUTTER, urgent care, hospital, or senior care...) When possible be specific @ -No Did you speak to anyone other than the patient for history (EMS, parent, family, police, friend...)? What history was obtained from this source @ -No Did you review nursing and triage notes (agree or disagree)? Why? @ -I reviewed and agree with nursing and triage notes Were old charts reviewed (outside hosp., previous admission, EMS record, old EKG, old radiological studies, urgent care reports/EKG's, senior care records)? Report findings @ -No old charts were reviewed Differential Diagnosis (chest pain, altered mental status, abdominal pain women, abdominal pain men, vaginal bleeding, weakness, fever, dyspnea, syncope, headache, dizziness, GI bleed, back pain, seizure, CVA, palpatations, mental health, musculoskeletal)? @ -Differential Abdominal Pain Women: Appendicitis, Cholecystitis, diverticulosis, ischemic bowel, pancreatitis, hepatitis, UTI, gastroenteritis, AAA, incarcerated hernia, bowel obstruction, constipation, inflammatory bowel, hepatitis, peptic ulcer disease, splenic infarction, perforated viscus, vulvitis, ovarian torsion, PID, kidney stone, placenta abruption, this is not meant to be an all-inclusive list EKG interpreted by me (3pts min.). @ - none X-rays interpreted by me (1pt min.). @ -None done CT interpreted by me (1pt min.). @ -None done U/S interpreted by me (1pt. min.). @ -None done What testing was considered but not performed or refused? (CT, X-rays, U/S, labs)? Why? @ -None What meds were considered but not given or refused? Why? @ -None Did you discuss the management of the patient with other professionals (professionals i.e. KAPIL Hodge, GORING CUTTER, lab, RT, psych nurse, child welfare social worker, correctional officer chief, teacher, agricultural loan officer, leather case finisher)? Give summary @ -No Was smoking cessation discussed for >3mins.? @ -No Was critical care preformed (if so, how long)? @ -No Were there social determinants of health that impacted care today? How? (Homelessness, low income, unemployed, alcoholism, drug addiction, transportation, low edu. Level, literacy, decrease access to med. care, senior care, rehab)? @ -No Was there de-escalation of care discussed even if they declined (Discuss DNR or withdrawal of care, Hospice)? DNR status @ -No What co-morbidities impacted this encounter? (DM, HTN, Smoking, COPD, CAD, Cancer, CVA, ARF, Chemo, Hep., AIDS, mental health diagnosis, sleep apnea, morbid obesity)? @ -None Was patient admitted / discharged? Hospital course, mention meds given and route, prescriptions, significant lab abnormalities, going to OR and other pertinent info. @Discharge. 44-year-old female presenting for suprapubic abdominal pain x 2 days with associated urinary frequency, urinary urgency, and dysuria. Patient is afebrile with no CVA tenderness. Provided with IV fluids, Zofran, and analgesics. Lab work remarkable for mildly elevated BUN at 23 otherwise unremarkable. White blood cell count normal at 5. Urinalysis reveals large leukocyte esterase, 6 white blood cells, could be indicative of early UTI. Uri ne culture sent. Given patient is symptomatic, we will treat with an antibiotic. Appropriate return precautions and supportive care/follow-up care discussed. Case was discussed with my ED attending Dr. Granados. Undiagnosed new problem with uncertain prognosis? @ -No Drug Therapy requiring intensive monitoring for toxicity (Heparin, Nitro, Insulin, Cardizem)? @ -No Were any procedures done? @ -No Diagnosis/symptom? @ -Urinary tract infection Acute, or Chronic, or Acute on Chronic? @ -Acute Uncomplicated (without systemic symptoms) or Complicated (systemic symptoms)? @ -Uncomplicated Side effects of treatment? @ -No Exacerbation, Progression, or Severe Exacerbation? @ -No Poses a threat to life or bodily function? How? (Chest pain, USA, GA, pneumonia, PE, COPD, DKA, ARF, appy, cholecystitis, CVA, Diverticulitis, Homicidal, Suicidal, threat to staff... and all critical care pts) @ -No - Lab Data Result diagrams: 12/22/24 11:55 12/22/24 11:55 Lab Results 12/22/24 12/22/24 12/22/24 Range/Units 11:55 11:55 11:55 WBC 5.86 (4.50-10.00) 10*3/uL RBC 4.11 (4.10-5.20) 10*6/uL Hgb 12.1 (12.0-15.0) g/dL Hct 35.2 L (37.2-46.3) % MCV 85.6 (80.0-97.0) fL MCH 29.4 (27.0-32.0) pg MCHC 34.4 (32.0-37.0) g/dL Plt Count 303 (140-440) 10*3/uL MPV 9.7 (9.5-12.2) fL Immature Gran % (Auto) 0.7 % Neutrophils % 56.9 % Lymphocytes % 28.0 % Monocytes % 9.6 % Eosinophils % 4.1 % Basophils % 0.7 % Immature Gran # 0.04 (0.00-0.04) 10*3/uL Neutrophils # 3.34 (1.80-7.70) 10*3/uL Lymphocytes # 1.64 (0.90-5.00) 10*3/uL Monocytes # 0.56 (0.20-1.00) 10*3/uL Eosinophils # 0.24 (0.04-0.35) 10*3/uL Basophils # 0.04 (0.00-0.10) 10*3/uL Sodium (137-145) mmol/L Potassium (3.5-5.1) mmol/L Chloride (98-107) mmol/L Carbon Dioxide (22-30) mmol/L Anion Gap mmol/L BUN (7-17) mg/dL Creatinine (0.52-1.04) mg/dL Est GFR (CKD-EPI)AfAm (>60 ml/min/1.73 sqM) Est GFR (CKD-EPI)NonAf (>60 ml/min/1.73 sqM) Glucose (74-99) mg/dL Plasma Lactic Acid Paulino (0.7-2.0) mmol/L Calcium (8.4-10.2) mg/dL Total Bilirubin (0.2-1.3) mg/dL AST (14-36) U/L ALT (4-34) U/L Alkaline Phosphatase (38-126) U/L Total Protein (6.3-8.2) g/dL Albumin (3.5-5.0) g/dL Lipase (23-300) U/L Urine Color Colorless Urine Appearance Clear (Clear) Urine pH 6.5 (5.0-8.0) Ur Specific [place] 1.018 (1.001-1.035) Urine Protein Negative (Negative) Urine Glucose (UA) Negative (Negative) Urine Ketones Negative (Negative) Urine Blood Negative (Negative) Urine Nitrite Negative (Negative) Urine Bilirubin Negative (Negative) Urine Urobilinogen <2.0 (<2.0) mg/dL Ur Leukocyte Esterase Large H (Negative) Urine RBC 2 (0-5) /hpf Urine WBC 6 H (0-5) /hpf Ur Squamous Epith Cells 2 (0-4) /hpf Urine Bacteria Rare H (None) /hpf Urine Mucus Rare H (None) /hpf Urine HCG, Qual Not Detected (Not Detectd) 12/22/24 12/22/24 Range/Units 11:55 11:55 WBC (4.50-10.00) 10*3/uL RBC (4.10-5.20) 10*6/uL Hgb (12.0-15.0) g/dL Hct (37.2-46.3) % MCV (80.0-97.0) fL MCH (27.0-32.0) pg MCHC (32.0-37.0) g/dL Plt Count (140-440) 10*3/uL MPV (9.5-12.2) fL Immature Gran % (Auto) % Neutrophils % % Lymphocytes % % Monocytes % % Eosinophils % % Basophils % % Immature Gran # (0.00-0.04) 10*3/uL Neutrophils # (1.80-7.70) 10*3/uL Lymphocytes # (0.90-5.00) 10*3/uL Monocytes # (0.20-1.00) 10*3/uL Eosinophils # (0.04-0.35) 10*3/uL Basophils # (0.00-0.10) 10*3/uL Sodium 138 (137-145) mmol/L Potassium 4.3 (3.5-5.1) mmol/L Chloride 106 (98-107) mmol/L Carbon Dioxide 25 (22-30) mmol/L Anion Gap 7 mmol/L BUN 23 H (7-17) mg/dL Creatinine 0.92 (0.52-1.04) mg/dL Est GFR (CKD-EPI)AfAm 89 (>60 ml/min/1.73 sqM) Est GFR (CKD-EPI)NonAf 77 (>60 ml/min/1.73 sqM) Glucose 102 H (74-99) mg/dL Plasma Lactic Acid Paulino 1.9 (0.7-2.0) mmol/L Calcium 9.6 (8.4-10.2) mg/dL Total Bilirubin 1.0 (0.2-1.3) mg/dL AST 34 (14-36) U/L ALT 31 (4-34) U/L Alkaline Phosphatase 121 (38-126) U/L Total Protein 6.6 (6.3-8.2) g/dL Albumin 4.2 (3.5-5.0) g/dL Lipase 186 (23-300) U/L Urine Color Urine Appearance (Clear) Urine pH (5.0-8.0) Ur Specific [place] (1.001-1.035) Urine Protein (Negative) Urine Glucose (UA) (Negative) Urine Ketones (Negative) Urine Blood (Negative) Urine Nitrite (Negative) Urine Bilirubin (Negative) Urine Urobilinogen (<2.0) mg/dL Ur Leukocyte Esterase (Negative) Urine RBC (0-5) /hpf Urine WBC (0-5) /hpf Ur Squamous Epith Cells (0-4) /hpf Urine Bacteria (None) /hpf Urine Mucus (None) /hpf Urine HCG, Qual (Not Detectd) Disposition Clinical Impression: Urinary tract infection Disposition: HOME SELF-CARE Condition: Stable Instructions (If sedation given, give patient instructions): Urinary Tract Infection in Women (ED) Additional Instructions: Take antibiotic twice daily for 7 days. Please return to the Emergency Department if symptoms worsen or any other concerns. Prescriptions: Cephalexin [Keflex] 500 mg PO Q12H 7 Days #14 cap Is patient prescribed a controlled substance at d/c from ED?: No Referrals: Demarcus Osorio MD [Primary Care Provider] - 1-2 days Time of Disposition: 13:09
[2024-12-22] MEDS: ONDANSETRON 4 MG/2 ML VIAL IVP STA (11:57)
[2024-12-22 12:06] LABS: Basophils # (A) 0.04 10*3/uL (0.00-0.10); Basophils % (A) 0.7 %; Eosinophils # (A) 0.24 10*3/uL (0.04-0.35); Eosinophils % (A) 4.1 %; HCT 35.2 % (37.2-46.3); HGB 12.1 g/dL (12.0-15.0); Lymphocytes # (A) 1.64 10*3/uL (0.90-5.00); MCH 29.4 pg (27.0-32.0); MCHC 34.4 g/dL (32.0-37.0); MCV 85.6 fL (80.0-97.0); Mean Platelet Volume 9.7 fL (9.5-12.2); Monocytes # (A) 0.56 10*3/uL (0.20-1.00); Monocytes % (A) 9.6 %; Neutrophils # (A) 3.34 10*3/uL (1.80-7.70); Neutrophils % (A) 56.9 %; Platelet Count 303 10*3/uL (140-440); RBC 4.11 10*6/uL (4.10-5.20); RDW 12.8 % (11.5-14.5); WBC 5.86 10*3/uL (4.50-10.00)
[2024-12-22 12:18] LABS: ALT 31 U/L (4-34); AST 34 U/L (14-36); African American GFR (CKD) 89 (>60 ml/min/1.73 sqM); Albumin 4.2 g/dL (3.5-5.0); Alkaline Phosphatase 121 U/L (38-126); Anion Gap 7 mmol/L; Blood Urea Nitrogen 23 mg/dL (7-17); Calcium 9.6 mg/dL (8.4-10.2); Carbon Dioxide 25 mmol/L (22-30); Chloride 106 mmol/L (98-107); Glucose 102 mg/dL (74-99); Lipase 186 U/L (23-300); Non-African American GFR(CKD) 77 (>60 ml/min/1.73 sqM); Potassium 4.3 mmol/L (3.5-5.1); Sodium 138 mmol/L (137-145); Total Protein 6.6 g/dL (6.3-8.2)
[2024-12-22 12:21] LABS: Appearance,Urine Clear (Clear); Bacteria,Urine Rare /hpf; Bilirubin,Urine Negative (Negative); Blood,Urine Negative (Negative); Color,Urine Colorless; Glucose,Urine (UA) Negative (Negative); Ketones,Urine Negative (Negative); Leukocyte Esterase,Urine Large (Negative); Mucus,Urine Rare /hpf; Nitrite,Urine Negative (Negative); PH, Urine 6.5 (5.0-8.0); Protein,Urine Negative (Negative); RBC,Urine 2 /hpf (0-5); Specific Gravity,Urine 1.018 (1.001-1.035); Squamous Epithelial Cell,Urine 2 /hpf (0-4); Urobilinogen,Urine <2.0 mg/dL (<2.0); WBC,Urine 6 /hpf (0-5)
[2024-12-22] MEDS: HYDROmorphone 1 MG/ML 1 ML SYRINGE IVP STA (12:44)
[2024-12-22] MEDS: HYDROmorphone 0.5 MG/0.5 ML SYRINGE IVP STA (13:23)
[2024-12-22] MEDS: SODIUM CHLORIDE 0.9% 1,000 ML IV STA (13:23)
[2024-12-22 14:22] VITALS: BP 140/76; PULSE 80; RESP 17
== END 2024-12-22 14:23 | disposition home or self-care (01) ==
LOC: EC 10:22
DX: N39.0 Urinary tract infection, site not specified (principal); Z88.6 Allergy status to analgesic agent; Z88.8 Allergy status to other drugs, medicaments and biological substances
CPT/HCPCS: 36415; 80053; 83605; 83690; 85025; 81001; 81025; 99284; 96374; 96375; 96376; 96361; J2405; J1171 ×2

== ENCOUNTER → 2025-01-09 | Outpatient (CLI) | payer MEDICARE, OTHER ==
[2025-01-09 18:40] LABS: Basophils # (A) 0.05 X 10*3/uL (0.00-0.10); Basophils % (A) 0.8 %; Eosinophils # (A) 0.07 X 10*3/uL (0.04-0.35); Eosinophils % (A) 1.1 %; HCT 42.8 % (37.2-46.3); HGB 14.4 g/dL (12.0-15.0); Immature Grans, Automated 0.30 %; Lymphocytes # (A) 2.09 X 10*3/uL (0.90-5.00); Lymphocytes % (A) 32.3 %; MCH 29.2 pg (27.0-32.0); MCHC 33.6 g/dL (32.0-37.0); MCV 86.8 FL (80.0-97.0); Monocytes # (A) 0.47 X 10*3/uL (0.20-1.00); Monocytes % (A) 7.3 %; NRBC Per 100 WBC 0 X 10*3/uL (0.00-0.01); Neutrophils # (A) 3.78 X 10*3/uL (1.80-7.70); Neutrophils % (A) 58.2 %; Platelet Count 308 X 10*3/uL (140-440); RBC 4.93 X 10*6/uL (4.10-5.20); RDW 12.9 % (11.5-14.5); WBC 6.48 X 10*3/uL (4.50-10.00)
[2025-01-09 18:53] LABS: ALT 32 U/L (8-44); AST 33 U/L (13-35)
== END | disposition home or self-care (01) ==
LOC: LABWHC1 14:19
PROVIDERS: ATTEND Physician Assistant Medical
DX: L40.0 Psoriasis vulgaris (principal); L40.59 Other psoriatic arthropathy; Z79.899 Other long term (current) drug therapy
CPT/HCPCS: 36415; 82565; 84450; 84460; 85025; 86480